=== PATIENT | male | born 1960 | race Caucasian/White ===

== ENCOUNTER 2018-03-05 06:37 | Emergency (ER) | payer SELFPAY ==
[~2018-03-05] VITALS: Ht 175.3 cm; Wt 98.0 kg
[~2018-03-05 06:37] MED LIST: ASPIRIN EC81 MG PO; COZAAR25 MG PO; COZAAR50 MG PO; GLIMEPIRIDE2 MG PO; GLIMEPIRIDE4 MG PO; LEVAQUIN500 MG PO; METFORMIN HCL500 MG PO; METOPROLOL TART25 MG PO
[2018-03-05] MEDS ORDERED: CLOPIDOGREL75 MG PO (07:08)
[2018-03-05] MEDS ORDERED: AMOX TR-K CLV1 EAC1 PO (07:09)
[2018-03-05] MEDS ORDERED: ATORVASTATIN CA40 MG PO (07:09)
[2018-03-05] MEDS ORDERED: AMARYL2 MG PO (07:12)
[2018-03-05] MEDS ORDERED: JANUMET XR 50-1 EACH PO (07:13)
[2018-03-05] MEDS ORDERED: ATIVAN0.5 MG PO (07:18)
[2018-03-05] MEDS ORDERED: HYDROCODON-ACE1 EAC8 PO (07:20)
[2018-03-05] MEDS ORDERED: NICOTINE PATCH1 EAC1 TD (07:21)
[2018-03-05] MEDS ORDERED: ANTI-DIARRHEA2 MG PO (07:22)
[2018-03-05] MEDS ORDERED: MULTI VITAMIN1 EACH PO (07:23)
[2018-03-05] MEDS ORDERED: PAIN RELIEF650 MG PO (07:24)
[2018-03-05] MEDS ORDERED: LAXATIVE SUPPOS10 MG PR (07:25)
[2018-03-05] MEDS ORDERED: MILK OF MA400 MG/5 M PO (07:26)
[2018-03-05] MEDS ORDERED: PEG3350510 GM PO (07:27)
== END 2018-03-05 09:05 | disposition home or self-care (01) ==
LOC: ED 06:37
DX: E11.649 Type 2 diabetes mellitus with hypoglycemia without coma (principal); Z79.84 Long term (current) use of oral hypoglycemic drugs; Z79.82 Long term (current) use of aspirin; Z79.899 Other long term (current) drug therapy
CPT/HCPCS: 80053; 85025; 99283

== ENCOUNTER 2018-04-10 00:25 | Emergency (ER) | payer OTHER ==
[~2018-04-10] VITALS: Ht 160 cm; Wt 99.8 kg
--- OUTSIDE RECORDS SUMMARY | ~2018-04-10 | XMS | Encounter Summary ---
Demographics + + + | Address | [address] | | | [place] [address] | + + + | Home Phone | | + + + | Preferred Language | Unknown | + + + | Marital Status | Single | + + + | Alevism Affiliation | Unknown | + + + | Race | Unknown | + + + | Ethnic Group | Unknown | + + + Author + + + | Author | [facility] | + + + | Organization | [facility] | + + + | Address | Unknown | + + + | Phone | Unavailable | + + + Support + + +---------+ + | Name | Relationship | Address | Phone | + + +---------+ + | Megan Walker | ECON | Unknown | | + + +---------+ + Care Team Providers + +------+ + | Care Tool And Die Maker Name | Role | Phone | + +------+ + | Nicholas Claire MD | PCP | | + +------+ + Encounter Details +--------+ + + + + | Date | Type | Department | Care Team | Description | +--------+ + + + + | 03/30/ | Telephone | [facility] | Yesenia Witt, | | | 2017 | | Vascular Surgery | RN | | | | | [address] | | | | | | [place] | | | | | | [address] | | | | | | [phone] | | | +--------+ + + + + Social History + +-------+ +--------+------+ | Tobacco Use | Types | Packs/Day | Years | Date | | | | | Used | | + +-------+ +--------+------+ | Never Smoker | | | | | + +-------+ +--------+------+ + +---+---+---+ | Smokeless Tobacco: | | | | | Former User | | | | + +---+---+---+ + + +---------+ + | Alcohol Use | Drinks/We | oz/Week | Comments | | | ek | | | + + +---------+ + | Yes | | | "no beer 3 weeks" | + + +---------+ + + + + | Sex Assigned at | Date Recorded | | | | + + + | Not on file | | + + + as of this encounter Plan of Treatment +--------+---------+ + + + | Date | Type | Specialty | Care Team | Description | +--------+---------+ + + + | 04/18/ | Office | Vascular Surgery | Chris Duggan DNP | | | 2017 | Visit | | [address] | | | | | | [place] | | | | | | [id number] | | | | | | | | +--------+---------+ + + + as of this encounter Visit Diagnoses Not on filein this encounter
--- OUTSIDE RECORDS SUMMARY | ~2018-04-10 | XMS | Encounter Summary ---
Demographics + + + | Address | [address] | | | [place] [address] | + + + | Home Phone | | + + + | Preferred Language | Unknown | + + + | Marital Status | Single | + + + | Roman Catholic Affiliation | Unknown | + + + | Race | Unknown | + + + | Ethnic Group | Unknown | + + + Author + + + | Author | [facility] | | | and [place] | + + + | Organization | [facility] | | | and [place] | + + + | Address | Unknown | + + + | Phone | Unavailable | + + + Support + + +---------+ + | Name | Relationship | Address | Phone | + + +---------+ + | Mara Alvarez | ECON | Unknown | | + + +---------+ + Care Team Providers + +------+ + | Care Operations Manager Assistant Name | Role | Phone | + +------+ + | Nicholas Claire MD | PCP | | + +------+ + Reason for Visit Auth/Cert +--------+--------+ + + + + | Status | Reason | Specialty | Diagnoses / | Referred By | Referred To | | | | | Procedures | Contact | Contact | +--------+--------+ + + + + | | | | Diagnoses | | | | | | | 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) | | | | | | | Infected | | | | | | | Toe | | | | | | | Procedures | | | | | | | TX RELEASE | | | | | | | EXTEN FOOT | | | | | | | TENDON,SINGL | | | | | | | E | | | | | | | AMPUTATION | | | | | | | TOE, 2nd | | | +--------+--------+ + + + + Encounter Details +--------+ + + + + | Date | Type | Department | Care Team | Description | +--------+ + + + + | 02/18/ | Hospital | [facility] | Kal Walker | | | 2017 | Encounter | [facility] | [address] | | | | | [address] [place] | [facility], | | | | | [place], [place] | [place] [address] | | | | | [address] | [phone] | | | | | [phone] | | | +--------+ + + + + Social History + +-------+ +--------+------+ | Tobacco Use | Types | Packs/Day | Years | Date | | | | | Used | | + +-------+ +--------+------+ | Current Every Day | | | 45 | | | Smoker | | | | | + +-------+ +--------+------+ + +------+---+---+ | Smokeless Tobacco: | Chew | | | | Current User | | | | + +------+---+---+ + + | Tobacco Cessation: Ready to Quit: Yes; Counseling Given: Yes | + + + + +---------+ + | Alcohol Use | Drinks/We | oz/Week | Comments | | | ek | | | + + +---------+ + | No | | | | + + +---------+ + + + + | Sex Assigned at | Date Recorded | | | | + + + | Not on file | | + + + as of this encounter Last Filed Vital Signs + + + + | Vital Sign | Reading | Time Taken | + + + + | Blood Pressure | 132/70 | 02/18/20182011 PDT | + + + + | Pulse | 93 | 02/18/20182011 PDT | + + + + | Temperature | 37.1 C (98.8 F) | 02/18/20182011 PDT | + + + + | Respiratory Rate | 16 | 02/18/20181999 PDT | + + + + | Oxygen Saturation | 98% | 02/18/20182011 PDT | + + + + | Inhaled Oxygen | - | - | | Concentration | | | + + + + | Weight | - | - | + + + + | Height | - | - | + + + + | Body Mass Index | - | - | + + + + in this encounter Medications at Time of Discharge + + +-------+---------+ + + | Medication | Sig. | Disp. | Refills | Start | End Date | | | | | | Date | | + + +-------+---------+ + + | albuterol | | | | 11/04/19 | | | (VENTOLIN HFA) 90 | | | | 18 | | | mcg/puff inhaler | | | | | | + + +-------+---------+ + + | aspirin 81 MG EC | Take 81 mg by mouth. | | | | | | tablet | | | | | | + + +-------+---------+ + + | clopidogrel | Take 75 mg by mouth. | | | 10/20/19 | | | (PLAVIX) 75 mg | | | | 18 | 9 | | tablet | | | | | | + + +-------+---------+ + + | glimepiride | | | | 01/08/20 | | | (AMARYL) 4 mg tablet | | | | 18 | | + + +-------+---------+ + + | losartan (COZAAR) | | | | 07/23/20 | | | 25 mg tablet | | | | 17 | | + + +-------+---------+ + + | metoprolol | | | | 07/23/20 | | | tartrate (LOPRESSOR) | | | | 17 | | | 25 mg tablet | | | | | | + + +-------+---------+ + + | | | | | 08/09/20 | | | sitagliptan-metFORMI | | | | 17 | | | N (SHIRLEY) 50-500 | | | | | | | MG per tablet | | | | | | + + +-------+---------+ + + as of this encounter Plan of Treatment + +--------+ + + | Name | Priori | Associated Diagnoses | Order Schedule | | | ty | | | + +--------+ + + | Surgical Pathology Exam | Routin | | One Time for 1 | | | e | | Occurrences starting | | | | | 02/18/2018 | + +--------+ + + | Surgical Pathology Exam | Routin | | One Time for 1 | | | e | | Occurrences starting | | | | | 02/18/2018 | + +--------+ + + as of this encounter Procedures + +--------+ + + + | Procedure Name | Priori | Date/Time | Associated Diagnosis | Comments | | | ty | | | | + +--------+ + + + | XR FOOT RIGHT 2 VW | STAT | 02/18/2018 | | Results for this | | | | 1948 PDT | | procedure are in the | | | | | | results section. | + +--------+ + + + | AMPUTATION TOE | | 02/18/2018 | Infected Toe | | | | | 1730 PDT | | | + +--------+ + + + | POC GLUCOSE | Routin | 02/18/2018 | | Results for this | | | e | 1628 PDT | | procedure are in the | | | | | | results section. | + +--------+ + + + | SURGICAL PATHOLOGY | Routin | 02/18/2018 | | Results for this | | EXAM | e | 0000 PDT | | procedure are in the | | | | | | results section. | + +--------+ + + + in this encounter Results XR Foot Right 2 Vw (02/18/20181947) + + + | Impressions | Performed At | + + + | IMPRESSION: Postsurgical change of 2nd digit amputation as above. | [facility] | | Dictated by: Kashmir Dong | | + + + + + + | Narrative | Performed At | + + + | EXAMINATION: XR FOOT RIGHT 2 VW HISTORY: post op | [facility] | | COMPARISON STUDY: None FINDINGS: Postoperative image | | | demonstrates amputation of the 2nd digit at the mid-diaphyseal level | | | of the 2nd proximal phalanx. The overlying soft tissue is | | | unremarkable. Vascular calcifications are present. | | + + + + + | Procedure Note | + + | Claudio Soni Results In - 02/19/2018 0714 PDT EXAMINATION:XR FOOT RIGHT 2 VWHISTORY:post | | opCOMPARISON STUDY:NoneFINDINGS:Postoperative image demonstrates amputation of the 2nd | | digit at the mid-diaphyseal level of the 2nd proximal phalanx. The overlying soft | | tissue is unremarkable. 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.Dictated by: Kashmir | | Glennyectronically Signed by: Kashmir Dong on 02/19/2018 7:11 AM | |COMPARISON STUDY: | |None | | | |FINDINGS: | |Postoperative image demonstrates amputation of the 2nd digit at the mid-diaphyseal level of the 2nd proximal phalanx. The overlying soft tissue is unremarkable. Vascular calcificati ons are present. | | | |IMPRESSION: | |IMPRESSION: | |Postsurgical change of 2nd digit amputation as above. | | | |Dictated by: Kashmir Dong | | | | | + + + +---------+ + + | Performing | Address | City/State/Zipcode | Phone Number | | Organization | | | | + +---------+ + + | [facility] | | | | + +---------+ + + POC Glucose (02/18/2018 1628) + +-------+ + + | Component | Value | Ref Range | Performed At | + +-------+ + + | Glucose, POC | 98 | 70 - 110 mg/dL | [facility] | | | [facility] | | | | | [facility]ORY | + +-------+ + + + + | Specimen | + + | Blood | + + + + + + + | Performing | Address | City/State/Zipcode | Phone Number | | Organization | | | | + + + + + | [facility] | [address] | [place] [address] | [phone] | | HOSP[facility] | | | | + + + + + Surgical Pathology Exam (02/18/2018) + + + | Narrative | Performed At | + + + | SPECIMEN(S): A RIGHT SECOND TOE SPECIMEN SOURCE: A. RIGHT | [facility] | | SECOND TOE CLINICAL HISTORY: Infected toe. FINAL PATHOLOGIC | [facility] | | DIAGNOSIS: Right foot, 2nd toe, amputation: - Distal portion of | | | toe with ulceration, deep inflammation and hemorrhage, and gangrenous | | | necrosis. - Focal, minimal acute osteomyelitis present underlying | | | area of ulceration. - Skin and soft tissue margins with focal | | | inflammation and ulceration. - Additional fragment of bone with | | | focal, minimal acute osteomyelitis. NRT:cml:C2NR MICROSCOPIC | | | EXAMINATION: Histologic sections of all submitted blocks are examined | | | by light microscopy. These findings, together with the gross | | | examination, support the pathologic diagnosis. GROSS DESCRIPTION: | | | Received in formalin in a container labeled "Arsenio Walker, right 2nd | | | toe" are two toe fragments, one consisting of apparent distal toe with | | | ulceration, measuring 2.5 cm in length x 1.7 cm in diameter. The | | | area of ulceration appears to possibly underlie the toenail, and | | | measures 2.5 x 1.5 cm. The skin and bone margins appear viable and | | | uninvolved. On sectioning of the toe through the area of | | | ulceration there is diffuse blackening of the tissue and apparent | | | involvement of the underlying bone. A full cross section of the toe | | | with ulceration and blackened tissue involving bone is submitted in | | | cassette (A1), following decalcification. The skin and soft tissue | | | at the margin of the toe is submitted in cassette (A2), following | | | decalcification. There is an additional bone fragment present in | | | the specimen container measuring 1.5 cm in length x 1 cm in | | | diameter. It is sectioned revealing unremarkable cut surfaces, and | | | its cross sections are entirely submitted in cassette (A3), following | | | decalcification. NRT:cml PERFORMING LABORATORY: The technical | | | [facility] | | | [place], [address] [place] [address] (Medical | | | Director: Nicholas Escalante MD; CLIA# [id number]). Professional | | | interpretation [facility] | | | [place], [address] [facility], [place] [address] (Medical | | | Director: Nicholas Escalante MD; CLIA# [id number]). | | | Diagnostician: Aaliyah Romero MD Pathologist Electronically | | | Signed 02/24/2018 | | + + + + +---------+ + + | Performing | Address | City/State/Zipcode | Phone Number | | Organization | | | | + +---------+ + + | [facility] | | | | | [place] | | | | + +---------+ + + in this encounter Visit Diagnoses Not on filein this encounter Admitting Diagnoses + + | Diagnosis | + + | Infected Toe | + + Administered Medications + +--------+---------+------+------+------+ | Medication Order | MAR | Action | Dose | Rate | Site | | | Action | Date | | | | + +--------+---------+------+------+------+ + +---+ | fentaNYL (PF) injection 25-50 | | | mcg 25-50 mcg, Intravenous, | | | EVERY 5 MIN PRN, Pain, Starting | | | Wed02/18/18 at 1939, Maximum | | | total dose 250 mcg. PACU IV | | | Narcotic Priority: Only use | | | fentanyl for immediate post-op | | | pain (one dose) or breakthrough | | | pain when any other IV narcotics | | | ordered have been ineffective (if | | | ordered). If both morphine and | | | hydromorphone are ordered, use | | | morphine first, and use | | | hydromorphone if morphine | | | ineffective. | | + +---+ | | | + +---+ | HYDROmorphone (DILAUDID) | | | injection 0.2-0.5 mg 0.2-0.5 mg, | | | Intravenous, EVERY 5 MIN PRN, | | | Pain, Starting Wed02/18/18 at | | | 1939, Maximum total dose 4 mg. | | | PACU IV Narcotic Priority: Only | | | use fentanyl for immediate | | | post-op pain (one dose) or | | | breakthrough pain when any other | | | IV narcotics ordered have been | | | ineffective (if ordered). If | | | both morphine and hydromorphone | | | are ordered, use morphine first, | | | and use hydromorphone if morphine | | | ineffective. | | + +---+ | | | + +---+ + +---------+ +---+-------+---+ | lactated ringers (LR) infusion | New Bag | | | 100 | | | at 100 mL/hr, Intravenous, | | 8 16:20 | | mL/hr | | | CONTINUOUS, Starting Wed02/18/18 | | PDT | | | | | at 1645, Pre-op | | | | | | + +---------+ +---+-------+---+ +---------+ +---+---+---+ | New Bag | | | | | | | 8 16:20 | | | | | | PDT | | | | +---------+ +---+---+---+ + +---+ | | | + +---+ | ondansetron (ZOFRAN) injection | | | 4 mg 4 mg, Intravenous, ONCE | | | PRN, Nausea, Starting Wed02/18/18 | | | at 1939, For 1 dose, | | | Recovery/Phase I | | + +---+ | | | + +---+ in this encounter
--- OUTSIDE RECORDS SUMMARY | ~2018-04-10 | XMS | Encounter Summary ---
Demographics + + + | Address | [address] | | | [place] [address] | + + + | Home Phone | | + + + | Preferred Language | Unknown | + + + | Marital Status | Single | + + + | Jewish Affiliation | Unknown | + + + | Race | Unknown | + + + | Ethnic Group | Unknown | + + + Author + + + | Author | [facility] | + + + | Organization | [facility] | + + + | Address | Unknown | + + + | Phone | Unavailable | + + + Support + + +---------+ + | Name | Relationship | Address | Phone | + + +---------+ + | Megan Walker | ECON | Unknown | | + + +---------+ + Care Team Providers + +------+ + | Care Commercial Plumber Name | Role | Phone | + +------+ + | Nicholas Claire MD | PCP | | + +------+ + Encounter Details +--------+ + + + + | Date | Type | Department | Care Team | Description | +--------+ + + + + | 03/11/ | Orders Only | Located Within [facility] | Ronnell Burroughs, | | | 2018 | | [facility] Roxie Cantrell RN | | | | | Lab [address] [place] [address] | | | | | | [place] [address] | | | | | | [phone] | | | +--------+ + + + [...] [place] | | | | | | [address] | | | | | | | | +--------+---------+ + + + as of this encounter Visit Diagnoses Not on filein this encounter
--- OUTSIDE RECORDS SUMMARY | ~2018-04-10 | XMS | Encounter Summary ---
Demographics + + + | Address | [address] | | | [place] [address] | + + + | Home Phone | | + + + | Preferred Language | Unknown | + + + | Marital Status | Single | + + + | Restoration Affiliation | Unknown | + + + | Race | Unknown | + + + | Ethnic Group | Unknown | + + + Author + + + | Author | [facility] | + + + | Organization | [facility] | + + + | Address | Unknown | + + + | Phone | Unavailable | + + + Support + + +---------+ + | Name | Relationship | Address | Phone | + + +---------+ + | Megan Walker | ECON | Unknown | | + + +---------+ + Care Team Providers + +------+ + | Care Chauffeur Motorbus Name | Role | Phone | + +------+ + | Nicholas Claire MD | PCP | | + +------+ + Encounter Details +--------+ + + + + | Date | Type | Department | Care Team | Description | +--------+ + + + + | 03/16/ | Orders Only | [facility] | Yesenia Witt, | Occlusion of right | | 2017 | | Vascular Surgery | RN | femoral-popliteal | | | | [address] | | bypass graft, | | | | [place] | | initial encounter | | | | [address] | | ([facility]) (Primary Dx) | | | | [phone] | | | +--------+ + + + [...] [place] | | | | | | [address] | | | | | | | | +--------+---------+ + + + + +--------+ + + | Name | Priori | Associated Diagnoses | Order Schedule | | | ty | | | + +--------+ + + | US lower extremty arterial right | Routin | Occlusion of right | Expected: | | | e | femoral-popliteal | 03/31/2018, Expires: | | | | bypass graft, | 12/15/2018 | | | | initial encounter | | | | | ([facility]) | | + +--------+ + + as of this encounter Visit Diagnoses + + | Diagnosis | + + | Occlusion of right femoral-popliteal bypass graft, initial encounter ([facility]) - Primary | + +
--- OUTSIDE RECORDS SUMMARY | ~2018-04-10 | XMS | Encounter Summary ---
Demographics + + + | Address | [address] | | | [place] [address] | + + + | Home Phone | | + + + | Preferred Language | Unknown | + + + | Marital Status | Single | + + + | Denominational Affiliation | Unknown | + + + | Race | Unknown | + + + | Ethnic Group | Unknown | + + + Author + + + | Author | [facility] | + + + | Organization | [facility] | + + + | Address | Unknown | + + + | Phone | Unavailable | + + + Support + + +---------+ + | Name | Relationship | Address | Phone | + + +---------+ + | Megan Walker | ECON | Unknown | | + + +---------+ + Care Team Providers + +------+ + | Care Field Traffic Investigator Name | Role | Phone | + [...] | | | | | | | Cellulitis | | | | | | | of right | | | | | | | lower | | | | | | | extremity | | | | | | | Sepsis, due | | | | | | | to | | | | | | | unspecified | | | | | | | organism | | | | | | | ([facility]) | | | | | | | Gangrene of | | | | | | | right foot | | | | | | | ([facility]) | | | +--------+--------+ + + + + Encounter Details +--------+ + + + + | Date | Type | Department | Care Team | Description | +--------+ + + + + | 02/25/ | Anesthesia | [facility] | Pete Allen, | | | 2018 | [facility] | [facility] [address] | | | | | Operating Room [address] | [place] [address] | | | | | [facility] | [phone] | | | | | [place] [address] | | | | | | [phone] | | | +--------+ + + + + Anesthesia Record + + + + + | Procedure Name | Responsible | Anesthesia Start | Anesthesia Stop Time | | | Anesthesiologist | Time | | + + + + + | FOREFOOT - | Jean-Paul Portillo | 02/25/18 1849 | 02/25/18 2020 | | AMPUTATION (Right | JACOB Ball | | | | Foot) | | | | + + + + + +----+---+ + + | Da | T | Event | Comment | | te | i | | | | | m | | | | | e | | | +----+---+ + + | 06 | 1 | An Start | Pre-anesthetic vital signs reassessed. | | /2 | 8 | | | | 9/ | 4 | | | | 20 | 9 | | | | 18 | | | | +----+---+ + + | | 1 | An | | | | 8 | Induction | | | | 5 | | | | | 6 | | | +----+---+ + + | | 1 | An | | | | 9 | Intubation | | | | 0 | | | | | 0 | | | +----+---+ + + | | 1 | Quick Note | | | | 9 | | | | | 0 | | | | | 1 | | | +----+---+ + + | | 1 | No Abx | | | | 9 | | | | | 0 | | | | | 4 | | | +----+---+ + + | | 1 | Quick Note | Time out no abx indicated | | | 9 | | | | | 0 | | | | | 6 | | | +----+---+ + + | | 1 | Quick Note | incision | | | 9 | | | | | 0 | | | | | 8 | | | +----+---+ + + | | 2 | An | | | | 0 | Emergence | | | | 1 | | | | | 0 | | | +----+---+ + + | | 2 | Extubation | | | | 0 | | | | | 1 | | | | | 4 | | | +----+---+ + + | | 2 | an stop | | | | 0 | data | | | | 1 | | | | | 5 | | | +----+---+ + + | | 2 | An Stop | | | | 0 | | | | | 2 | | | | | 0 | | | +----+---+ + + +------+ | Meds | +------+ + +---------+ | Name | Total | + +---------+ | midazolam 1 mg/mL | 2 mg | + +---------+ | fentanyl 50 mcg/mL | 100 mcg | + +---------+ | lidocaine 2% | 40 mg | + +---------+ | propofol bolus | 100 mg | + +---------+ | succinylcholine 10 mg/mL | 100 mg | + +---------+ | ROCuronium 10 mg/mL | 5 mg | + +---------+ | dexamethasone 4 mg/mL | 4 mg | + +---------+ | ondansetron 2 mg/mL | 4 mg | + +---------+ | plasmalyte-A | 0 mL | + +---------+ + + | Name | + + | N2O | + + | O2 | + + | Air | + + | Desflurane-EX | + + | N2O | + + + + | No blood administrations on file. | + + +--------+ + + + | Type | Details | Placement | Removal | +--------+ + + + | Wound | 02/22/18; 1318; Yes; Amputation; | 02/22/18 1318 by | 03/31/18 1238 by | | | Foot; Yes; 03/31/18; 1238 | Hannah Boland RN | Lesley Byrne, | | | | | RN | +--------+ + + + | Urethr | 02/23/18; (no one available); | 02/23/18 0000 by | 02/26/18 1205 by | | al | Yes; Latex; 16 Fr.; Per order | Jayne Crawford RN | Sherie García, | | Roxieet | | | RN | | er | | | | +--------+ + + + | Periph | Placement Date: 02/23/18; | 02/23/181753 by | 02/26/18 044 by | | eral | Placement Time: 1753; Removal | Nahid Anand MD | Darlene Osborn, | | IV | Date: 02/26/18; Removal Time: | | RN | | | 443; Size (Gauge): 16 G; | | | | | Orientation: Right; Location: | | | | | Hand; Site Prep: Alcohol; | | | | | Insertion Attempts: 1 | | | +--------+ + + + | Wound | 02/23/18; 2224; Incision; Leg; | 02/23/182224 by | 03/31/18 1236 by | | | Right; 03/31/18; 1236 | Jayne Crawford RN | Lesley Byrne, | | | | | RN | +--------+ + + + | Periph | Placement Date: 02/25/18; | 02/25/18 1400 by | 03/11/18 1213 by | | eral | Placement Time: 1400; Removal | Darlene Osborn, | Eric Dennisonrhout, | | IV | Date: 03/11/18; Removal Time: | RN | RN | | | 1213; Orientation: Right; | | | | | Location: Forearm | | | +--------+ + + + | ETT | Placement Date: 02/25/18; | 02/25/18 1900 by | 02/25/182013 by | | | Placement Time: 1900; Removal | Jean-Paul Portillo | Jean-Paul Portillo | | | Date: 02/25/18; Removal Time: | JACOB Ball | JACOB Ball | | | 2013; Mask Airway: Easy; Blade | | | | | Type: MAC; Blade Size: 3; ETT | | | | | Size (Fr): 7.5; Technique: Direct | | | | | Laryngoscope; Grade: I; | | | | | Confirmation: EtCO2, Direct | | | | | visualization; Intubation | | | | | Details: Easy, Atraumatic; Taped | | | | | at (cm): 22; Secured at: Teeth | | | +--------+ + + + | Wound | 02/25/18; 2006; Incision; Foot; | 02/25/18 2006 by | 03/31/18 1236 by | | | Right; 03/31/18; 1236 | Jean-Paul Darby RN | Lesley Byrne, | | | | | RN | +--------+ + + + in this encounter Social History + +-------+ +--------+------+ | Tobacco Use | Types | Packs/Day | Years | Date | | | | | Used | | + +-------+ +--------+------+ | Never Smoker | | | | | + +-------+ +--------+------+ + +---+---+---+ | Smokeless Tobacco: | | | | | Current User | | | | + +---+---+---+ [...] | Chris Duggan DNP | | | 2018 | Visit | | [address] | | | | | | [place] | | | | | | [address] | | | | | | | | +--------+---------+ + + + as of this encounter Visit Diagnoses Not on filein this encounter Administered Medications + +--------+ +------+------+------+ | Medication Order | MAR | Action | Dose | Rate | Site | | | Action | Date | | | | + +--------+ +------+------+------+ | dexamethasone (DECADRON) 4 | Given | | 4 mg | | | | MG/ML injection PRN, Starting | | 8 19:09 | | | | | 02/25/18 at 1909, Anesthesia | | PDT | | | | | Intra-op | | | | | | + +--------+ +------+------+------+ +---+---+ | | | +---+---+ + +---------+ +---+---+---+ | electrolyte-A (PLASMALYTE-A) | New Bag | | | | | | solution Intravenous, Continuous | | 8 18:44 | | | | | PRN, Starting Wed02/25/18 at | | PDT | | | | | 1844, Anesthesia Intra-op | | | | | | + +---------+ +---+---+---+ +---+---+ | | | +---+---+ + +-------+ +--------+---+---+ | fentaNYL (SUBLIMAZE) injection | Given | | 50 mcg | | | | Intravenous, PRN, Starting Wed | | 8 18:47 | | | | | 02/25/18 at 1847, Anesthesia | | PDT | | | | | Intra-op | | | | | | + +-------+ +--------+---+---+ +-------+ +--------+---+---+ | Given | | 50 mcg | | | | | 8 18:56 | | | | | | PDT | | | | +-------+ +--------+---+---+ +---+---+ | | | +---+---+ + +-------+ +-------+---+---+ | lidocaine 2 % (MDV) 2 % | Given | | 40 mg | | | | injection Intravenous, PRN, | | 8 18:56 | | | | | Starting Wed02/25/18 at 1856, | | PDT | | | | | Anesthesia Intra-op | | | | | | + +-------+ +-------+---+---+ +---+---+ | | | +---+---+ + +-------+ +------+---+---+ | midazolam (VERSED) injection | Given | | 2 mg | | | | PRN, Starting Wed02/25/18 at | | 8 18:47 | | | | | 1847, Anesthesia Intra-op | | PDT | | | | + +-------+ +------+---+---+ +---+---+ | | | +---+---+ + +-------+ +------+---+---+ | ondansetron (ZOFRAN) injection | Given | | 4 mg | | | | PRN, Nausea, Vomiting, Starting | | 8 19:35 | | | | | 02/25/18 at 1935, Anesthesia | | PDT | | | | | Intra-op | | | | | | + +-------+ +------+---+---+ +---+---+ | | | +---+---+ + +-------+ +--------+---+---+ | propofol (DIPRIVAN) injection | Given | | 100 mg | | | | Intravenous, PRN, Starting Fri | | 8 18:56 | | | | | 02/25/18 at 1856, Anesthesia | | PDT | | | | | Intra-op | | | | | | + +-------+ +--------+---+---+ +---+---+ | | | +---+---+ + +-------+ +------+---+---+ | rocuronium (ZEMURON) injection | Given | | 5 mg | | | | PRN, Starting Wed02/25/18 at | | 8 18:56 | | | | | 1856, Anesthesia Intra-op | | PDT | | | | + +-------+ +------+---+---+ +---+---+ | | | +---+---+ + +-------+ +--------+---+---+ | succinylcholine injection PRN, | Given | | 100 mg | | | | Starting Wed02/25/18 at 1857, | | 8 18:57 | | | | | Anesthesia Intra-op | | PDT | | | | + +-------+ +--------+---+---+ +---+---+ | | | +---+---+ in this encounter"
--- OUTSIDE RECORDS SUMMARY | ~2018-04-10 | XMS | Encounter Summary ---
Demographics + + + | Address | [address] | | | [place] [address] | + + + | Home Phone | | + + + | Preferred Language | Unknown | + + + | Marital Status | Single | + + + | Jehovah'S Witness Affiliation | Unknown | + + + | Race | Unknown | + + + | Ethnic Group | Unknown | + + + Author + + + | Author | [facility] | + + + | Organization | [facility] | + + + | Address | Unknown | + + + | Phone | Unavailable | + + + Support + + +---------+ + | Name | Relationship | Address | Phone | + + +---------+ + | Megan Walker | ECON | Unknown | | + + +---------+ + Care Team Providers + +------+ + | Care Investigations Chief Name | Role | Phone | + +------+ + | Nicholas Claire MD | PCP | | + +------+ + Encounter Details +--------+ + + + + | Date | Type | Department | Care Team | Description | +--------+ + + + + | 02/22/ | Procedure | [facility] | | | | 2017 | [facility] | [address] | | | | | | Floor [facility] | | | | | | [address] [facility] | | | | | | [place] [address] | | | | | | [phone] | | | +--------+ + + + [...] [place] | | | | | | [address] | | | | | | | | +--------+---------+ + + + as of this encounter Visit Diagnoses Not on filein this encounter"
--- OUTSIDE RECORDS SUMMARY | ~2018-04-10 | XMS | Encounter Summary ---
Demographics + + + | Address | [address] | | | [place] [address] | + + + | Home Phone | | + + + | Preferred Language | Unknown | + + + | Marital Status | Single | + + + | Hindu Affiliation | Unknown | + + + | Race | Unknown | + + + | Ethnic Group | Unknown | + + + Author + + + | Author | [facility] | + + + | Organization | [facility] | + + + | Address | Unknown | + + + | Phone | Unavailable | + + + Support + + +---------+ + | Name | Relationship | Address | Phone | + + +---------+ + | Megan Walker | ECON | Unknown | | + + +---------+ + Care Team Providers + +------+ + | Care Quality Assurance Monitor Body Name | Role | Phone | + +------+ + | Nicholas Claire MD | PCP | | + +------+ + Encounter Details +--------+ + + + + | Date | Type | Department | Care Team | Description | +--------+ + + + + | 02/22/ | Procedure | [facility] | | | | 2017 | [facility] | [address] | | | | | | Floor [facility] | | | | | | [address] | | | | | | [place] [address] | | | | | | [phone] | | | +--------+ + + + [...] [place] | | | | | | [address] | | | | | | | | +--------+---------+ + + + as of this encounter Visit Diagnoses Not on filein this encounter"
--- OUTSIDE RECORDS SUMMARY | ~2018-04-10 | XMS | Encounter Summary ---
Demographics + + + | Address | [address] | | | [place] [address] | + + + | Home Phone | | + + + | Preferred Language | Unknown | + + + | Marital Status | Single | + + + | Baptism Affiliation | Unknown | + + + | Race | Unknown | + + + | Ethnic Group | Unknown | + + + Author + + + | Author | [facility] | | | and [place] | + + + | Organization | [facility] | | | and [...] Team Providers + +------+ + | Care Steam Hammer Operator Name | Role | Phone | + +------+ + | Nicholas Claire MD | PCP | | + +------+ + Encounter Details +--------+ + + + + | Date | Type | Department | Care Team | Description | +--------+ + + + + | 02/18/ | Procedure | [facility] | | | | 2017 | Pass [facility] | | | | | | [address] | | | | | | [place] | | | | | | [address] | | | | | | [phone] | | | +--------+ + + + [...] | | | + +------+---+---+ + + +---------+ + | Alcohol Use [...] as of this encounter Plan of Treatment Not on fileas of this encounter Visit Diagnoses Not on filein this encounter"
--- OUTSIDE RECORDS SUMMARY | ~2018-04-10 | XMS | Encounter Summary ---
Demographics + + + | Address | [address] | | | [place] [address] | + + + | Home Phone | | + + + | Preferred Language | Unknown | + + + | Marital Status | Single | + + + | Amish Affiliation | Unknown | + + + | Race | Unknown | + + + | Ethnic Group | Unknown | + + + Author + + + | Author | [facility] | + + + | Organization | [facility] | + + + | Address | Unknown | + + + | Phone | Unavailable | + + + Support + + +---------+ + | Name | Relationship | Address | Phone | + + +---------+ + | Megan Walker | ECON | Unknown | | + + +---------+ + Care Team Providers + +------+ + | Care Narcotics Investigator Name | Role | Phone | + +------+ + | Nicholas Claire MD | PCP | | + +------+ + Reason for Visit + + + | Reason | Comments | + + + | Referral | | + + + | Post-op Problem | s/p Right second toe amputation Wednesday, other digits on foot | | | "look worse" | + + + Auth/Cert +--------+--------+ + + + + | [...] | | | | | | | (HCC) | | | | | | | Gangrene of | | | | | | | right foot | | | | | | | (HCC) | | | +--------+--------+ + + + + Encounter Details +--------+---------+ + + + | Date | Type | Department | Care Team | Description | +--------+---------+ + + + | 02/23/ | Surgery | [facility] | Johan Mueller MD | BYPASS GRAFT - | | 2018 | | [facility] | [address] [place] | FEMORAL - TIBIAL | | | | Operating Room [address] | [place], [place] | | | | | [address] | [address] | | | | | [place] [address] | | | | | | [phone] | | | +--------+---------+ + + + Social History + +-------+ +--------+------+ | Tobacco Use | Types | Packs/Day | Years | Date | | | | | Used | | + +-------+ +--------+------+ | Never Smoker | | | | | + +-------+ +--------+------+ + +---+---+---+ | Smokeless Tobacco: | | | | | Current User | | | | + +---+---+---+ + + | Tobacco Cessation: Ready to Quit: No; Counseling Given: Yes | + + + [...] + + + | Blood Pressure | 183/97 | 03/01/2018 11:30 AM PDT | + + + + | Pulse | 93 | 03/01/2018 11:30 AM PDT | + + + + | Temperature | 36.7 C (98 F) | 03/01/2018 11:21 AM PDT | + + + + | Respiratory Rate | 18 | 03/01/2018 11:21 AM PDT | + + + + | Oxygen Saturation | 100% | 03/01/2018 11:21 AM PDT | + + + + | Inhaled Oxygen | - | - | | Concentration | | | + + + + | Weight | 107.5 kg (236 lb | 02/28/2018 3:53 AM PDT | | | 15.9 oz) | | + + + + | Height | 160 cm (5' 3") | 02/22/2018 9:56 AM PDT | + + + + | Body Mass Index | 41.98 | 02/28/2018 3:53 AM PDT | + + + + in this encounter Discharge Summaries Jojo Dudley MD - 02/28/2018 5:22 AM PDTFormatting of this note may be different from the original. [facility] Service: Hospitalist Physician Discharge Summary Patient ID: Arsenio Walker 1960 57 y.o. Admit date: 02/21/2018 Discharge date: 03/01/18 Admitting Physician: Peter Peña MD Discharge Physician: Jojo Dudley MD Consultants: Treatment Team: Consulting Physician: Johan Mueller MD Consulting Physician: Amilcar Garcia DPM Consulting Physician: Juany Padilla MD Consulting Physician: Ketan Varner DPM Admitting Provider: Peter Peña MD Primary Discharge Diagnoses: Principal Problem: Critical lower limb ischemia Active Problems: Foot ulcer with necrosis of bone, right (HCC) PVD (peripheral vascular disease) (HCC) Essential hypertension DM (diabetes mellitus) (HCC) HPI and Hospital Course: From HPI Dr. Peña 02/21/18 The patient is a 57-year-old male with a significant past medical history of hypertension, diabetes, peripheral vascular disease, carotid vascular disease, who presents to the ED stat us post right second toe amputation with worsening symptoms. The patient with known history of peripheral arterial disease and positive foot ulcer, for which he has been seen by our vascular surgery here at [facility] and by podiatry. Two days ago, there were concerns of an infected ulcer on the second toe, right foot, in the distal phalanx, for which he underwent surgical intervention and subsequent am putation on 02/19, two days ago. The patient refers that there were no surgical complicati ons, and when he went today for a followup with his professional bondsman, when they took off the browning ges there was clear discoloration of black toes, the foot was cold, and even though the bipin ent refers pain and numbness, he thought it was related to the recent surgical intervention. Due to these worrisome changes, the patient was subsequently brought to the ED for furthe r management. The patient does refer having been compliant with his medications, but he is unsure if he is taking the Plavix. He denies any history of smoking tobacco but does refe r to chewing on a daily basis. In the emergency department, the patient has remained hemodynamically stable. Vascular ruiz rgery was consulted immediately, who are planning to do a diagnostic angiogram with possible intravascular interventions. At this point the patient will be admitted under the hospitalist service for further manage ment. 02/28/18 For Discharge Patient admitted for R foot gangrene and PVD disease with evidence of necrosis on the dista l toes. Patient underwent R. Popliteal to RECORDS ANALYSIS MANAGER bypass and reversed OSV by Dr. Mueller, vascular surgery. Then underwent transmetatarsal amputation o 02/25/18 He was initiated on IV Zosyn and Vancomycin and was transitioned to Augmentin prior and thr ough discharge. Patient has severe anxiety and was given Benzos for relief. For other co-morbidities, his home medications were restarted. He was advised to quit tobacco use. All questions were answered for patient and his mother who agreed to plan. Discharged in g ood and stable condition. Past Medical History: Past Medical History Diagnosis Date Hypertension Type 2 diabetes mellitus (HCC) Past Surgical History Procedure Laterality Date FEMORAL TIBIAL BYPASS Right 02/23/2018 Procedure: BYPASS GRAFT - FEMORAL - TIBIAL; Surgeon: Johan Mueller MD; Location: [facility]; Service: Vascular; Laterality: Right; right popliteal to posterior tibial artery by pass with vein harvest FOOT AMPUTATION Right 02/25/2018 Procedure: FOREFOOT - AMPUTATION; Surgeon: Amilcar Garcia DPM; Location: [facility] OR; ervice: Podiatry; Laterality: Right; Right foot transmetatarsal amputation TOE AMPUTATION Right 02/18/2018 VASCULAR SURGERY Discharged Condition: Stable for discharge as stated above. Significant Diagnostic Studies: Us Arminda Resting Result Date: 02/22/2018 1. Ankle brachial indices on the right are compatible with moderate stenosis of the right p osterior tibial vessel which could contribute to symptoms 2. Ankle brachial indices on the l eft no evidence of high-grade disease along the main channel but there is some suppression o f toe pressures, mild Us Lower Extremty Arterial Right Result Date: 02/22/2018 1. The proximal RECORDS ANALYSIS MANAGER appears occluded with distal reconstitution via collaterals. 2. Mid p eroneal artery appears occluded with distal reconstitution via collaterals. 3. Probable hem odynamically significant stenosis in proximal JOSE ANGEL. 4. 3 vessel monophasic hyperemic distal runoff with monophasic hyperemic flow in dorsalis pedis artery. Us Greater Saphenous Vein Map Bilat Result Date: 02/22/2018 1. Bilateral greater saphenous vein mapping as described above. Us Tcom/ Laser Doppler Limited Result Date: 02/24/2018 1. Skin perfusion pressures as noted in the findings. Reference ranges: * In nondiabetic patients oxygen tension values below 40 mmHg are considered ischemic. Oxygen tension values above 20 mm Hg are required for adequate healing. * In diabetic patients oxygen tension va lues below 50 mmHg are considered ischemic. Oxygen tension values above 25 mm Hg are requir ed for adequate healing. Discharge Vitals: Vitals: 02/28/18 0353 02/28/18 0848 02/28/18 1201 02/28/18 1218 BP: (!) 171/95 187/87 164/88 BP Location: Right forearm Right forearm Right forearm Pulse: 102 101 103 Resp: 20 Temp: 97.7 F (36.5 C) 98.4 F (36.9 C) 98.1 F (36.7 C) TempSrc: Oral Oral Oral SpO2: 91% 95% 96% Weight: 107.5 kg (236 lb 15.9 oz) Height: Discharge Exam: General: Well nourished. Psych: Alert and oriented x 3. Calm, cooperative. Cardiovascular: Regular rate and rhythm, no murmurs, no thrills. Normal PMI. Respiratory: Clear to auscultation, no wheezing or crackles, breathing non labored. Gastrointestinal: Soft, non-tender, non-distended, positive bowel sounds. No HSM. Musculoskeletal: No edema in bilateral lower extremities. No joint swelling. Skin: Warm and dry, no rashes. Neck: No JVD, Trachea midline. Neurological: Non focal. Motor grossly intact. LABS: Recent Labs Lab 02/28/18 0511 02/27/18 0453 02/26/18 0454 WBC 7.54 9.41 11.23* RBC 3.66* 3.53* 3.84* HGB 11.2* 11.0* 12.0* HCT 32.3* 31.4* 34.4* MCV 88.3 89.1 89.6 MCH 30.5 31.2 31.1 MCHC 34.6 35.1 34.7 RDW 40.7 40.7 41.1 PLT 321 288 269 MPV 7.6 7.6 7.8 DIFFTYPE AUTOMATED AUTOMATED MANUAL Recent Labs Lab 02/28/18 0511 02/27/18 0453 02/26/18 0454 02/22/18 0330 02/21/18 2100 NA 142 144 141 < > 137 134* K 4.1 4.0 4.2 < > 4.1 4.1 CL 107 109 106 < > 102 97* CO2 28 26 23 < > 25 28 BUN 12 14 16 < > 15 14 CREATININE 0.8 0.8 0.9 < > 1.0 1.1 PROT -- -- -- -- 6.8 7.9 BILITOT -- -- -- -- 1.6* 2.0* ALT -- -- -- -- 25 28 AST -- -- -- -- 21 30 GLUF 199* 179* 218* < > 85 79 < > = values in this interval not displayed. Recent Labs Lab 02/21/18 2100 CKTOTAL 32* CKMBINDEX UNABLE TO CALCULATE No results for input(s): PHOS in the last 168 hours. Recent Labs Lab 02/22/18 0330 MG 1.9 Invalid input(s): ABG Disposition: Home or Self Care Follow up: Johan Mueller MD [address] [facility] [phone] Schedule an appointment as soon as possible for a visit in 2 weeks For wound re-check Nicholas Claire MD [address] [facility] [phone] In 3 days Medication List START taking these medications acetaminophen 325 MG tablet QTY: 30 tablet Refills: 0 Commonly known as: TYLENOL Take 2 tablets by mouth every 6 (six) hours as needed for up to 10 days. amoxicillin-clavulanate 875-125 MG per tablet QTY: 14 tablet Refills: 0 Commonly known as: AUGMENTIN Take 1 tablet by mouth every 12 (twelve) hours for 7 days. atorvastatin 40 MG tablet QTY: 30 tablet Refills: 11 Commonly known as: LIPITOR Take 1 tablet by mouth nightly. bisacodyl 10 MG suppository QTY: 1 suppository Refills: 0 Commonly known as: DULCOLAX Place 1 suppository rectally daily as needed for up to 10 days. HYDROcodone-acetaminophen 10-325 MG per tablet QTY: 30 tablet Refills: 0 Commonly known as: NORCO Take 1 tablet by mouth every 4 (four) hours as needed. Replaces: HYDROcodone-acetaminophen 5-325 MG per tablet LORazepam 0.5 MG tablet QTY: 30 tablet Refills: 0 Commonly known as: ATIVAN Take 1 tablet by mouth every 4 (four) hours as needed for Anxiety. magnesium hydroxide 400 MG/5ML suspension QTY: 360 mL Refills: 0 Commonly known as: MILK OF MAGNESIA Take 30 mLs by mouth daily as needed for Constipation for up to 10 days. nicotine 21 MG/24HR QTY: 28 patch Refills: 0 Commonly known as: NICODERM CQ Place 1 patch onto the skin daily for 30 days. polyethylene glycol packet QTY: 14 each Refills: 0 Commonly known as: GLYCOLAX Take 17 g by mouth daily as needed for up to 3 days. CONTINUE taking these medications aspirin 81 MG chewable tablet Refills: 0 clopidogrel 75 MG tablet QTY: 90 tablet Refills: 0 Commonly known as: PLAVIX Take 1 tablet by mouth daily. glimepiride 4 MG tablet Refills: 0 Commonly known as: AMARYL JANUMET XR 50-500 MG Tb24 Refills: 0 Generic drug: SitaGLIPtin-MetFORMIN HCl losartan 25 MG tablet Refills: 0 Commonly known as: COZAAR metFORMIN 500 MG tablet Refills: 0 Commonly known as: GLUCOPHAGE metoprolol 25 MG tablet QTY: 30 tablet Refills: 11 Commonly known as: LOPRESSOR Take 0.5 tablets by mouth 2 (two) times daily. You might also be taking other medications not listed above. If you have questions about an y of your other medications, talk to the person who prescribed them or your Primary Care Pro vider. STOP taking these medications HYDROcodone-acetaminophen 5-325 MG per tablet Commonly known as: NORCO Replaced by: HYDROcodone-acetaminophen 10-325 MG per tablet Where to Get Your Medications These medications were sent to [facility] [address] [place] [id number] [place] [id number] [place] [address] [place] [address] acetaminophen 325 MG tablet amoxicillin-clavulanate 875-125 MG per tablet atorvastatin 40 MG tablet bisacodyl 10 MG suppository magnesium hydroxide 400 MG/5ML suspension metoprolol 25 MG tablet nicotine 21 MG/24HR polyethylene glycol packet You can get these medications from any pharmacy Bring a paper prescription for each of these medications HYDROcodone-acetaminophen 10-325 MG per tablet LORazepam 0.5 MG tablet Jojo Dudley MD 02/28/2018 2:11 PM Discharge took>30 minutes, to include final examination, discussion of admission, and pre paration of prescriptions, instructions for ongoing care, follow up and dictation of summary . in this encounter Medications at Time of Discharge + + + +---------+ + + | Medication | Sig. | Disp. | Refills | Start | End Date | | | | | | Date | | + + + +---------+ + + | atorvastatin | Take 1 tablet by | 30 | 11 | 02/29/20 | | | (LIPITOR) 40 MG | mouth nightly. | tablet | | 18 | 9 | | tablet | | | | | | + + + +---------+ + + | JANUMET XR 50-500 | Take 1 tablet by | | | 08/27/20 | | | MG TB24 | mouth every morning. | | | 17 | | + + + +---------+ + + | losartan (COZAAR) | Take 25 mg by mouth | | | 07/23/20 | | | 25 MG tablet | daily. | | | 17 | | + + + +---------+ + + | metoprolol | Take 0.5 tablets by | 30 | 11 | 02/29/20 | | | (LOPRESSOR) 25 MG | mouth 2 (two) times | tablet | | 18 | 9 | | tablet | daily. | | | | | + + + +---------+ + + | | Take 1 tablet by | 14 | 0 | 02/29/20 | | | amoxicillin-clavulan | mouth every 12 | tablet | | 18 | 8 | | ate (AUGMENTIN) | (twelve) hours for 7 | | | | | | 875-125 MG per | days. | | | | | | tabletIndications: | | | | | | | Skin and Soft Tissue | | | | | | | Abscess | | | | | | + + + +---------+ + + | polyethylene | Take 17 g by mouth | 14 each | 0 | 02/29/20 | | | glycol (GLYCOLAX) | daily as needed for | | | 18 | 8 | | packet | up to 3 days. | | | | | + + + +---------+ + + | acetaminophen | Take 2 tablets by | 30 | 0 | 02/29/20 | | | (TYLENOL) 325 MG | mouth every 6 (six) | tablet | | 18 | 8 | | tablet | hours as needed for | | | | | | | up to 10 days. | | | | | + + + +---------+ + + | aspirin 81 MG | Take 81 mg by mouth | | | | | | chewable tablet | daily with | | | | 8 | | | breakfast. | | | | | + + + +---------+ + + | bisacodyl | Place 1 suppository | 1 | 0 | 02/29/20 | | | (DULCOLAX) 10 MG | rectally daily as | supposito | | 18 | 8 | | suppository | needed for up to 10 | ry | | | | | | days. | | | | | + + + +---------+ + + | clopidogrel | Take 1 tablet by | 90 | 0 | 10/20/19 | | | (PLAVIX) 75 MG | mouth daily. | tablet | | 18 | 8 | | tablet | | | | | | + + + +---------+ + + | glimepiride | Take 4 mg by mouth | | | 10/22/19 | | | (AMARYL) 4 MG tablet | every morning. | | | 18 | 8 | + + + +---------+ + + | | Take 1 tablet by | 30 | 0 | 02/29/20 | | | HYDROcodone-acetamin | mouth every 4 (four) | tablet | | 18 | 8 | | ophen (NORCO) 10-325 | hours as needed. | | | | | | MG per tablet | | | | | | + + + +---------+ + + | LORazepam (ATIVAN) | Take 1 tablet by | 30 | 0 | 02/29/20 | | | 0.5 MG tablet | mouth every 4 (four) | tablet | | 18 | 8 | | | hours as needed for | | | | | | | Anxiety. | | | | | + + + +---------+ + + | magnesium | Take 30 mLs by mouth | 360 mL | 0 | 02/29/20 | | | hydroxide (MILK OF | daily as needed for | | | 18 | 8 | | MAGNESIA) 400 MG/5ML | Constipation for up | | | | | | suspension | to 10 days. | | | | | + + + +---------+ + + | metFORMIN | Take 1,000 mg by | | | 07/23/20 | | | (GLUCOPHAGE) 500 MG | mouth 2 (two) times | | | 17 | 8 | | tablet | daily. | | | | | + + + +---------+ + + | nicotine (NICODERM | Place 1 patch onto | 28 | 0 | 02/29/20 | | | CQ) 21 MG/24HR | the skin daily for | patch | | 18 | 8 | | | 30 days. | | | | | + + + +---------+ + + as of this encounter Progress Notes Juany Padilla MD - 03/01/2018 10:03 AM PDTFormatting of this note may be different from t long original. [facility] Service: Vascular Surgery Progress Note Hospital Day: 7 ASSESSMENT & PLAN: 57 yo male patient s/p R popliteal to RECORDS ANALYSIS MANAGER bypass with reversed GSV. - Continue ASA/Plavix. - Prevena removed. Keep incisions clean and dry. - Working towards d/c to SNF. Vascular follow-up placed in discharge orders. - Very much appreicate IM mgmt. SUBJECTIVE: Doing OK. Denies pain. OBJECTIVE: Vital Signs: BP 120/66 (BP Location: Right upper arm) | Pulse 92 | Temp 97.7 F (36.5 C) (Oral) | Resp 18 | Ht 1.727 m (5' 8") | Wt 90.5 kg (199 lb 8.3 oz) | SpO2 95% | BMI 30.34 kg/m General: Awake, alert. No distress. CV: RRR. Lungs: Breathing comfortably on room air. Extremities: RLE dressings removed. Incisions clean and intact. Strong PT signal by Doppl er. DATA: CBC: Lab Results Component Value Date WBC 7.87 03/01/2018 RBC 3.78 (L) 03/01/2018 HGB 11.4 (L) 03/01/2018 HCT 33.3 (L) 03/01/2018 MCV 88.0 03/01/2018 MCH 30.2 03/01/2018 MCHC 34.4 03/01/2018 RDW 39.8 03/01/2018 PLT 350 03/01/2018 MPV 7.5 03/01/2018 DIFFTYPE AUTOMATED 03/01/2018 BMP: Lab Results Component Value Date NA 141 03/01/2018 K 3.9 03/01/2018 K 4.1 02/23/2018 CL 106 03/01/2018 CO2 28 03/01/2018 ANIONGAP 11 03/01/2018 GLUF 146 (H) 03/01/2018 BUN 12 03/01/2018 CREATININE 0.8 03/01/2018 BCR 15 03/01/2018 CA 8.8 03/01/2018 EGFR >60 03/01/2018 PT/INR: Lab Results Component Value Date INR 1.1 02/22/2018 PROBLEM LIST: Patient Active Problem List Diagnosis Foot ulcer with necrosis of bone, right (HCC) Critical lower limb ischemia PVD (peripheral vascular disease) (HCC) Essential hypertension DM (diabetes mellitus) (HCC) Code Status: Full Code Juany Padilla MD 10:03 AM Juany Padilla MD - 02/28/2018 7:22 AM PDTFormatting of this note may be different from t long original. [facility] Service: Vascular Surgery Progress Note Hospital Day: 6 ASSESSMENT & PLAN: 57 yo male patient s/p R popliteal to RECORDS ANALYSIS MANAGER bypass with reversed GSV. - Continue ASA/Plavix. - Continue Prevena for 7 days--will try remove this prior to discharge if possible. - Working towards d/c to SNF. - Very much appreicate IM mgmt. SUBJECTIVE: Doing OK. Denies pain. OBJECTIVE: Vital Signs: BP 120/66 (BP Location: Right upper arm) | Pulse 92 | Temp 97.7 F (36.5 C) (Oral) | Resp 18 | Ht 1.727 m (5' 8") | Wt 90.5 kg (199 lb 8.3 oz) | SpO2 95% | BMI 30.34 kg/m General: Awake, alert. No distress. CV: RRR. Lungs: Breathing comfortably on room air. Extremities: RLE with Prevena in place. Foot wrapped. PT signal by Doppler. DATA: CBC: Lab Results Component Value Date WBC 7.54 02/28/2018 RBC 3.66 (L) 02/28/2018 HGB 11.2 (L) 02/28/2018 HCT 32.3 (L) 02/28/2018 MCV 88.3 02/28/2018 MCH 30.5 02/28/2018 MCHC 34.6 02/28/2018 RDW 40.7 02/28/2018 PLT 321 02/28/2018 MPV 7.6 02/28/2018 DIFFTYPE AUTOMATED 02/28/2018 BMP: Lab Results Component Value Date NA 142 02/28/2018 K 4.1 02/28/2018 K 4.1 02/23/2018 CL 107 02/28/2018 CO2 28 02/28/2018 ANIONGAP 11 02/28/2018 GLUF 199 (H) 02/28/2018 BUN 12 02/28/2018 CREATININE 0.8 02/28/2018 BCR 15 02/28/2018 CA 8.4 (L) 02/28/2018 EGFR >60 02/28/2018 PT/INR: Lab Results Component Value Date INR 1.1 02/22/2018 PROBLEM LIST: Patient Active Problem List Diagnosis Foot ulcer with necrosis of bone, right (HCC) Critical lower limb ischemia PVD (peripheral vascular disease) ([facility]) Essential hypertension DM (diabetes mellitus) ([facility]) Code Status: Full Code Juany Padilla MD 7:22 AM Juany Padilla MD - 02/27/2018 7:58 AM PDTFormatting of this note may be different from t long original. [facility] Service: Vascular Surgery Progress Note Hospital Day: 5 ASSESSMENT & PLAN: 57 yo male patient s/p R popliteal to RECORDS ANALYSIS MANAGER bypass with reversed GSV. - Continue ASA/Plavix. - Continue Prevena for 7 days--will try remove this prior to discharge if possible. - Continue to work on mobility as tolerated and per podiatry recommendations. Suspect he w ill need IPR versus SNF for ongoing rehabilitation. - Very much appreicate IM mgmt. SUBJECTIVE: Doing OK. More confused this morning. OBJECTIVE: Vital Signs: BP 120/66 (BP Location: Right upper arm) | Pulse 92 | Temp 97.7 F (36.5 C) (Oral) | Resp 18 | Ht 1.727 m (5' 8") | Wt 90.5 kg (199 lb 8.3 oz) | SpO2 95% | BMI 30.34 kg/m General: Awake, alert. No distress. CV: RRR. Lungs: Breathing comfortably on room air. Extremities: RLE with Prevena in place. Foot wrapped. PT signal by Doppler. DATA: CBC: Lab Results Component Value Date WBC 9.41 02/27/2018 RBC 3.53 (L) 02/27/2018 HGB 11.0 (L) 02/27/2018 HCT 31.4 (L) 02/27/2018 MCV 89.1 02/27/2018 MCH 31.2 02/27/2018 MCHC 35.1 02/27/2018 RDW 40.7 02/27/2018 PLT 288 02/27/2018 MPV 7.6 02/27/2018 DIFFTYPE AUTOMATED 02/27/2018 BMP: Lab Results Component Value Date NA 144 02/27/2018 K 4.0 02/27/2018 K 4.1 02/23/2018 CL 109 02/27/2018 CO2 26 02/27/2018 ANIONGAP 13 02/27/2018 GLUF 179 (H) 02/27/2018 BUN 14 02/27/2018 CREATININE 0.8 02/27/2018 BCR 18 02/27/2018 CA 8.3 (L) 02/27/2018 EGFR >60 02/27/2018 PT/INR: Lab Results Component Value Date INR 1.1 02/22/2018 PROBLEM LIST: Patient Active Problem List Diagnosis Foot ulcer with necrosis of bone, right (HCC) Critical lower limb ischemia PVD (peripheral vascular disease) (HCC) Essential hypertension DM (diabetes mellitus) ([facility]) Code Status: Full Code Juany Padilla MD 7:58 AM Jojo Dudley MD - 02/27/2018 5:15 AM PDTFormatting of this note may be different from the original. [facility] Service: Hospitalist Progress Note Hospital Day: LOS: 5 days SUBJECTIVE Patient Summary: From [facility] Dr. Peña 02/21/18 The patient is a 57-year-old male with a significant past medical history of hypertension, diabetes, peripheral vascular disease, carotid vascular disease, who presents to the ED stat us post right second toe amputation with worsening symptoms. The patient with known history of peripheral arterial disease and positive foot ulcer, for which he has been seen by our vascular surgery here at [facility] and by podiatry. Two days ago, there were concerns of an infected ulcer on the second toe, right foot, in the distal phalanx, for which he underwent surgical intervention and subsequent amp utation on 02/19, two days ago. The patient refers that there were no surgical complication s, and when he went today for a followup with his professional bondsman, when they took off the bandage s there was clear discoloration of black toes, the foot was cold, and even though the patien t refers pain and numbness, he thought it was related to the recent surgical intervention. Due to these worrisome changes, the patient was subsequently brought to the ED for further m anagement. The patient does refer having been compliant with his medications, but he is uns ure if he is taking the Plavix. He denies any history of smoking tobacco but does refer to chewing on a daily basis. In the emergency department, the patient has remained hemodynamically stable. Vascular mango babatunde was consulted immediately, who are planning to do a diagnostic angiogram with possible intravascular interventions. At this point the patient will be admitted under the hospitalist service for further manage ment. 02/27/18 Patient continues with anxiety. Complains of consitpation POD #4 Taking adequate P Os. Scheduled Medications ampicillin-sulbactam 3 g Intravenous Q6H aspirin 81 mg Oral Daily with breakfast atorvastatin 40 mg Oral Nightly clopidogrel 75 mg Oral Daily famotidine 20 mg Oral BID Or famotidine 20 mg Intravenous BID insulin lispro (human) 0-3 Units Subcutaneous Nightly insulin lispro (human) 0-6 Units Subcutaneous TID AC losartan 25 mg Oral Daily metoprolol 12.5 mg Oral BID nicotine 1 patch Transdermal Daily vancomycin 15 mg/kg Intravenous Q12H Continuous Infusions dextrose sodium chloride (IV) 110 mL/hr at 02/27/18 0337 PRN Medications acetaminophen OR acetaminophen, dextrose, dextrose, dextrose, glucagon, glucagon, HYDRO codone-acetaminophen OR HYDROcodone-acetaminophen, magnesium hydroxide, ondansetron OR ondansetron, polyethylene glycol, saline lock IV - when tolerating PO fluids AND sodi um chloride (PF), zolpidem OBJECTIVE Vital Signs: BP (!) 163/91 (BP Location: Right forearm) | Pulse 89 | Temp 98.3 F (36.8 C) (Oral) | Resp 22 | Ht 1.6 m (5' 3") | Wt 106.3 kg (234 lb 5.6 oz) | SpO2 94% | BMI 41.51 kg/m Patient Vitals for the past 24 hrs: BP Temp Temp src Pulse Resp SpO2 Weight 02/27/18 0333 (!) 163/91 98.3 F (36.8 C) Oral 89 22 94 % 106.3 kg (234 lb 5.6 oz) 02/26/18 2304 (!) 167/105 98.3 F (36.8 C) Oral 110 20 92 % - 02/26/18 1935 169/89 98.4 F (36.9 C) Oral 114 22 98 % - 02/26/18 1534 (!) 168/91 98.5 F (36.9 C) Oral 112 24 98 % - 02/26/18 1105 159/80 97.7 F (36.5 C) Axillary 103 22 95 % - 02/26/18 0806 186/87 97.7 F (36.5 C) Oral 101 20 94 % - Intake/Output Summary (Last 24 hours) at 02/27/18 0515 Last data filed at 02/27/18 0337 Gross per 24 hour Intake 4054 ml Output 1675 ml Net 2379 ml Physical Exam Constitutional: He is oriented to person, place, and time and well-developed, well-nourishe d, and in no distress. No distress. Eyes: EOM are normal. Pupils are equal, round, and reactive to light. No scleral icterus. Cardiovascular: Normal rate and regular rhythm. Pulmonary/Chest: Effort normal and breath sounds normal. Abdominal: Soft. Bowel sounds are normal. Neurological: He is alert and oriented to person, place, and time. Skin: Skin is warm. He is not diaphoretic. R foot second toe amputation, wrapped Psychiatric: Mood and affect normal. Nursing note and vitals reviewed. DATA Recent Labs Lab 02/26/18 0454 02/25/18 0835 065 02/23/18 1609 WBC 11.23* 12.16* -- 10.11 RBC 3.84* 3.78* -- 4.44 HGB 12.0* 11.6* 11.6* 13.9 HCT 34.4* 33.6* 34* 39.2 MCV 89.6 88.8 -- 88.3 MCH 31.1 30.6 -- 31.2 MCHC 34.7 34.4 -- 35.3 RDW 41.1 40.7 -- 39.8 PLT 269 274 -- 245 MPV 7.8 7.2 -- 8.0 DIFFTYPE MANUAL AUTOMATED -- MANUAL Recent Labs Lab 02/26/18 0454 02/25/18 0835 02/24/18 0418 02/22/18 0330 02/21/18 2100 NA 141 139 139 -- 137 134* K 4.2 3.8 4.0 < > 4.1 4.1 CL 106 108 106 -- 102 97* CO2 23 25 22* -- 25 28 BUN 16 12 14 -- 15 14 CREATININE 0.9 0.81 0.7 -- 1.0 1.1 PROT -- -- -- -- 6.8 7.9 BILITOT -- -- -- -- 1.6* 2.0* ALT -- -- -- -- 25 28 AST -- -- -- -- 21 30 GLUF 218* 172* 123* -- 85 79 < > = values in this interval not displayed. Recent Labs Lab 02/21/18 2100 CKTOTAL 32* CKMBINDEX UNABLE TO CALCULATE No results for input(s): PHOS in the last 168 hours. Recent Labs Lab 02/22/18 0330 MG 1.9 Invalid input(s): ABG No results for input(s): CALCIUM in the last 168 hours. No results found. PROBLEM LIST Principal Problem: Critical lower limb ischemia Active Problems: Foot ulcer with necrosis of bone, right ([facility]) PVD (peripheral vascular disease) ([facility]) Essential hypertension DM (diabetes mellitus) ([facility]) ASSESSMENT & PLAN -Right foot erythema. With gangrene and PVD disease With signs of necrosis on the distal toes and surrounding cellulitis. Status post recent se cond toe amputation. -Peripheral vascular disease with Critical limb ischemia, subacute per history appreciate v ascular surgeon, Dr. Mueller. Plan for diagnostic angiogram with possible endovascular interven tions (including balloon angioplasty, stent placement, or atherectomy) of right lower extrem ity arterial stenosis on 02/23/18. POD#4 U/S shows 1. The proximal RECOR[employer] ANALYSIS MANAGER appears occluded with distal reconstitution via collaterals. 2. Mid peroneal artery appears occluded with distal reconstitution via collaterals. 3. Probable hemodynamically significant stenosis in proximal JOSE ANGEL. 4. 3 vessel monophasic hyperemic distal runoff with monophasic hyperemic flow in dorsalis pedis artery. Appreciate Podiatry consult, Dr. Garcia. Patient will undergoa transmetatarsal amputation Continued IV Zosyn and Vancomycin. High dose statin and Plavix -Hypertension -Diabetes mellitus Novolog SS insulin -hx of CAD On Metoprolol and Plavix Constipation Bowel regiment Disposition: Code Status: Prior Jojo Dudley MD 02/27/2018 5:15 AM Juany Padilla MD - 02/26/2018 12:42 PM PDTFormatting of this note may be different from t long original. [facility] Service: Vascular Surgery Progress Note Hospital Day: 4 ASSESSMENT & PLAN: 57 yo male patient s/p R popliteal to RECORDS ANALYSIS MANAGER bypass with reversed GSV. - Continue ASA/Plavix. - Continue Prevena for 7 days. - Continue to work on mobility as tolerated and per podiatry recommendations. - Very much appreicate IM mgmt. SUBJECTIVE: Doing well. Very upset that dilaudid made him so foggy and wants to ensure that he never r eceives it again. OBJECTIVE: Vital Signs: BP 120/66 (BP Location: Right upper arm) | Pulse 92 | Temp 97.7 F (36.5 C) (Oral) | Resp 18 | Ht 1.727 m (5' 8") | Wt 90.5 kg (199 lb 8.3 oz) | SpO2 95% | BMI 30.34 kg/m General: Awake, alert. No distress. CV: RRR. Lungs: Breathing comfortably on room air. Extremities: RLE with Prevena in place. Foot wrapped. DATA: CBC: Lab Results Component Value Date WBC 11.23 (H) 02/26/2018 RBC 3.84 (L) 02/26/2018 HGB 12.0 (L) 02/26/2018 HCT 34.4 (L) 02/26/2018 MCV 89.6 02/26/2018 MCH 31.1 02/26/2018 MCHC 34.7 02/26/2018 RDW 41.1 02/26/2018 PLT 269 02/26/2018 MPV 7.8 02/26/2018 DIFFTYPE MANUAL 02/26/2018 BMP: Lab Results Component Value Date NA 141 02/26/2018 K 4.2 02/26/2018 K 4.1 02/23/2018 CL 106 02/26/2018 CO2 23 02/26/2018 ANIONGAP 16 02/26/2018 GLUF 218 (H) 02/26/2018 BUN 16 02/26/2018 CREATININE 0.9 02/26/2018 BCR 18 02/26/2018 CA 8.7 02/26/2018 EGFR >60 02/26/2018 PT/INR: Lab Results Component Value Date INR 1.1 02/22/2018 PROBLEM LIST: Patient Active Problem List Diagnosis Foot ulcer with necrosis of bone, right (HCC) Critical lower limb ischemia PVD (peripheral vascular disease) ([facility]) Essential hypertension DM (diabetes mellitus) ([facility]) Code Status: Full Code Juany Padilla MD 12:43 PM Amilcar Garcia DPM - 02/26/2018 12:08 PM PDTFormatting of this note may be different from t long original. [facility] Service: Podiatry Progress Note Hospital Day: LOS: 4 days Post-Op Day: 1 Day Post-Op SUBJECTIVE Patient Summary: Patient is a 57-year-old male who has a history of hypertension shahab betes peripheral arterial disease and nonhealing amputation site to the right second toe wit h extensive gangrene. Patient has a known history of peripheral arterial disease with histories of ulcerations. 4 days ago the patient had concerns for an infected ulcer on the right second toe when she un derwent surgical intervention and amputation on 19 February the patient follow up with his podia trist and there was clear discoloration and blackening of the toe as well as the foot was co ld. Due to the changes the patient was subsequently brought to the emergency room for furthe r management he admits to chewing tobacco on a daily basis. Angiogram was performed which showed the need for further surgical intervention. Vascular did a bypass on 02/23/18 TMA to right foot 02/25/18. Events Overnight: Patient had moments of confusion. Scheduled Medications ampicillin-sulbactam 3 g Intravenous Q6H aspirin 81 mg Oral Daily with breakfast atorvastatin 40 mg Oral Nightly clopidogrel 75 mg Oral Daily famotidine 20 mg Oral BID Or famotidine 20 mg Intravenous BID insulin lispro (human) 0-3 Units Subcutaneous Nightly insulin lispro (human) 0-6 Units Subcutaneous TID AC losartan 25 mg Oral Daily metoprolol 12.5 mg Oral BID nicotine 1 patch Transdermal Daily vancomycin 15 mg/kg Intravenous Q12H Continuous Infusions dextrose sodium chloride (IV) 110 mL/hr at 02/26/18 0537 PRN Medications acetaminophen OR acetaminophen, dextrose, dextrose, dextrose, glucagon, glucagon, HYDRO codone-acetaminophen OR HYDROcodone-acetaminophen, HYDROmorphone OR HYDROmorphone, m agnesium hydroxide, ondansetron OR ondansetron, polyethylene glycol, saline lock IV - wh en tolerating PO fluids AND sodium chloride (PF), zolpidem OBJECTIVE Vital Signs: BP 159/80 (BP Location: Left forearm) | Pulse 103 | Temp 97.7 F (36.5 C) (Axillary) | Resp 22 | Ht 1.6 m (5' 3") | Wt 106.4 kg (234 lb 9.1 oz) | SpO2 95% | BMI 41.55 kg/m Temp: [97.7 F (36.5 C)-100.4 F (38 C)] 97.7 F (36.5 C) (02/26 110) BP: (132-200)/(63-95) 159/80 (02/26 1105) Heart Rate: [84-138] 103 (02/26 1105) Resp: [8-40] 22 (02/26 1105) SpO2: [84 %-97 %] 95 % (02/26 1105) Weight: [106.4 kg (234 lb 9.1 oz)] 106.4 kg (234 lb 9.1 oz) (02/26 49) FiO2 : [27 %-95 %] 93 % (02/25 2017) Physical Exam Vascular: Pedal pulses are lightly palpable to the right foot. Pulses are palpable to the l eft foot skin is SP TMA to right foot. Skin coapted. Skin is warm to touch. Minimal bleeding seen on dressing. Neuro: Loss of protective sensation to bilateral feet to light touch. MS: Deferred DATA CBC: Lab Results Component Value Date WBC 11.23 (H) 02/26/2018 RBC 3.84 (L) 02/26/2018 HGB 12.0 (L) 02/26/2018 HCT 34.4 (L) 02/26/2018 MCV 89.6 02/26/2018 MCH 31.1 02/26/2018 MCHC 34.7 02/26/2018 RDW 41.1 02/26/2018 PLT 269 02/26/2018 MPV 7.8 02/26/2018 DIFFTYPE MANUAL 02/26/2018 BMP: Lab Results Component Value Date NA 141 02/26/2018 K 4.2 02/26/2018 K 4.1 02/23/2018 CL 106 02/26/2018 CO2 23 02/26/2018 ANIONGAP 16 02/26/2018 GLUF 218 (H) 02/26/2018 BUN 16 02/26/2018 CREATININE 0.9 02/26/2018 BCR 18 02/26/2018 CA 8.7 02/26/2018 EGFR >60 02/26/2018 PROBLEM LIST Principal Problem: Critical lower limb ischemia Active Problems: Foot ulcer with necrosis of bone, right (HCC) PVD (peripheral vascular disease) ([facility]) Essential hypertension DM (diabetes mellitus) ([facility]) ASSESSMENT & PLAN Gangrene Peripheral arterial disease Diabetes Discussed lack of bleeding during surgery especially more on dorsal skin. This could indic ate poor healing potential.. Discussed waiting to see how foot responds to bypass and amput ation. As of right now Incision is well coapted and warm to the touch. Minimal bleeding seen on d ressing. Discussed dry dressing change every [address] Garcia in 1-2 weeks. Disposition: stable Code Status: Prior Amilcar Garcia DPM 02/26/2018Jojo Dudley MD - 02/26/2018 5:18 AM PDTFormatting of this note may be differ ent from the original. [facility] Service: Hospitalist Progress Note Hospital Day: LOS: 4 days SUBJECTIVE Patient Summary: From [facility] Dr. Peña 02/21/18 The patient is a 57-year-old male with a significant past medical history of hypertension, diabetes, peripheral vascular disease, carotid vascular disease, who presents to the ED stat us post right second toe amputation with worsening symptoms. The patient with known history of peripheral arterial disease and positive foot ulcer, for which he has been seen by our vascular surgery here at [facility] and by podiatry. Two days ago, there were concerns of an infected ulcer on the second toe, right foot, in the distal phalanx, for which he underwent surgical intervention and subsequent amp utation on 02/19, two days ago. The patient refers that there were no surgical complication s, and when he went today for a followup with his professional bondsman, when they took off the bandage s there was clear discoloration of black toes, the foot was cold, and even though the patien t refers pain and numbness, he thought it was related to the recent surgical intervention. Due to these worrisome changes, the patient was subsequently brought to the ED for further m anagement. The patient does refer having been compliant with his medications, but he is uns ure if he is taking the Plavix. He denies any history of smoking tobacco but does refer to chewing on a daily basis. In the emergency department, the patient has remained hemodynamically stable. Vascular mango babatunde was consulted immediately, who are planning to do a diagnostic angiogram with possible intravascular interventions. At this point the patient will be admitted under the hospitalist service for further manage ment. 02/26/18 Patient upset that he is not in charge of his medications. He became confused las t night, remembers scaring his mother. POD #3 Taking adequate POs. Scheduled Medications ampicillin-sulbactam 3 g Intravenous Q6H aspirin 81 mg Oral Daily with breakfast atorvastatin 40 mg Oral Nightly clopidogrel 75 mg Oral Daily famotidine 20 mg Oral BID Or famotidine 20 mg Intravenous BID insulin lispro (human) 0-3 Units Subcutaneous Nightly insulin lispro (human) 0-6 Units Subcutaneous TID AC losartan 25 mg Oral Daily metoprolol 12.5 mg Oral BID nicotine 1 patch Transdermal Daily vancomycin 15 mg/kg Intravenous Q12H Continuous Infusions dextrose sodium chloride (IV) 110 mL/hr at 02/26/18 0537 PRN Medications acetaminophen OR acetaminophen, dextrose, dextrose, dextrose, glucagon, glucagon, HYDRO codone-acetaminophen OR HYDROcodone-acetaminophen, HYDROmorphone OR HYDROmorphone, m agnesium hydroxide, ondansetron OR ondansetron, polyethylene glycol, saline lock IV - wh en tolerating PO fluids AND sodium chloride (PF), zolpidem OBJECTIVE Vital Signs: BP 186/87 (BP Location: Left upper arm) | Pulse 101 | Temp 97.7 F (36.5 C) (Oral) | Resp 20 | Ht 1.6 m (5' 3") | Wt 106.4 kg (234 lb 9.1 oz) | SpO2 94% | BMI 41.55 kg/m Patient Vitals for the past 24 hrs: BP Temp Temp src Pulse Resp SpO2 Weight 02/26/18 0806 186/87 97.7 F (36.5 C) Oral 101 20 94 % - 02/26/18 0349 139/83 98.6 F (37 C) Oral 95 20 96 % - 02/26/18 0200 132/71 - - 84 - 94 % - 02/26/18 0130 139/63 - - 87 - 93 % - 02/26/18 0100 135/63 - - 92 - 93 % - 02/26/18 0049 - - - - - - 106.4 kg (234 lb 9.1 oz) 02/26/18 0030 138/63 - - 92 - 93 % - 02/26/18 0000 153/74 98.7 F (37.1 C) Oral 92 - 91 % - 02/25/18 2330 151/70 - - 94 - 94 % - 02/25/18 2315 133/64 98.6 F (37 C) Axillary 94 22 93 % - 02/25/18 2300 135/67 - - 94 - - - 02/25/18 2245 136/74 - - 93 - 96 % - 02/25/18 2230 - - - 96 - - - 02/25/18 2215 148/64 - - 101 - 96 % - 02/25/18 2145 139/70 - - 107 - 97 % - 02/25/18 2137 141/74 98.2 F (36.8 C) Oral 109 24 97 % - 02/25/182124 - - - 114 - 97 % - 02/25/182119 167/70 - - 115 29 96 % - 02/25/182114 181/86 - - 113 24 96 % - 02/25/182109 183/84 - - 114 28 90 % - 02/25/182104 146/77 - - 116 30 95 % - 02/25/182099 150/68 - - 118 8 95 % - 02/25/182054 158/89 - - 118 30 95 % - 02/25/182049 - - - 118 (!) 31 92 % - 02/25/182044 165/90 - - 116 26 96 % - 02/25/182039 177/88 - - 122 (!) 33 93 % - 02/25/182034 (!) 200/95 - - 138 (!) 40 94 % - 02/25/182029 152/88 - - 126 (!) 32 (!) 84 % - 02/25/182024 132/77 - - 116 (!) 38 (!) 88 % - 02/25/182019 141/78 - - 110 17 97 % - 02/25/182018 143/83 98.9 F (37.2 C) Temporal 111 19 96 % - 02/25/18 1522 148/85 100.4 F (38 C) Oral 87 18 (!) 89 % - 02/25/18 1120 149/84 98.7 F (37.1 C) Oral - 18 92 % 106 kg (233 lb 9.6 oz) Intake/Output Summary (Last 24 hours) at 02/26/18 1101 Last data filed at 02/26/18 0808 Gross per 24 hour Intake 4139 ml Output 1525 ml Net 2614 ml Physical Exam Constitutional: He is oriented to person, place, and time and well-developed, well-nourishe d, and in no distress. No distress. Eyes: EOM are normal. Pupils are equal, round, and reactive to light. No scleral icterus. Cardiovascular: Normal rate and regular rhythm. Pulmonary/Chest: Effort normal and breath sounds normal. No respiratory distress. He has no wheezes. Abdominal: Soft. Bowel sounds are normal. There is no tenderness. There is no rebound. Neurological: He is alert and oriented to person, place, and time. Skin: Skin is warm. He is not diaphoretic. R foot second toe amputation, wrapped Psychiatric: Mood and affect normal. Nursing note and vitals reviewed. DATA Recent Labs Lab 02/26/1845302/25/18 0835 02/23/18205402/23/18 1609 WBC 11.23* 12.16* -- 10.11 RBC 3.84* 3.78* -- 4.44 HGB 12.0* 11.6* 11.6* 13.9 HCT 34.4* 33.6* 34* 39.2 MCV 89.6 88.8 -- 88.3 MCH 31.1 30.6 -- 31.2 MCHC 34.7 34.4 -- 35.3 RDW 41.1 40.7 -- 39.8 PLT 269 274 -- 245 MPV 7.8 7.2 -- 8.0 DIFFTYPE MANUAL AUTOMATED -- MANUAL Recent Labs Lab 02/26/1845302/25/1835 02/24/1841702/22/18 0330 02/21/18 2100 NA 141 139 139 -- 137 134* K 4.2 3.8 4.0 < > 4.1 4.1 CL 106 108 106 -- 102 97* CO2 23 25 22* -- 25 28 BUN 16 12 14 -- 15 14 CREATININE 0.9 0.81 0.7 -- 1.0 1.1 PROT -- -- -- -- 6.8 7.9 BILITOT -- -- -- -- 1.6* 2.0* ALT -- -- -- -- 25 28 AST -- -- -- -- 21 30 GLUF 218* 172* 123* -- 85 79 < > = values in this interval not displayed. Recent Labs Lab 02/21/18 2100 CKTOTAL 32* CKMBINDEX UNABLE TO CALCULATE No results for input(s): PHOS in the last 168 hours. Recent Labs Lab 02/22/18 0330 MG 1.9 Invalid input(s): ABG No results for input(s): CALCIUM in the last 168 hours. No results found. PROBLEM LIST Principal Problem: Critical lower limb ischemia Active Problems: Foot ulcer with necrosis of bone, right ([facility]) PVD (peripheral vascular disease) ([facility]) Essential hypertension DM (diabetes mellitus) ([facility]) ASSESSMENT & PLAN -Right foot erythema. With gangrene and PVD disease With signs of necrosis on the distal toes and surrounding cellulitis. Status post recent se cond toe amputation. -Peripheral vascular disease with Critical limb ischemia, subacute per history appreciate v ascular surgeon, Dr. Mueller. Plan for diagnostic angiogram with possible endovascular interven tions (including balloon angioplasty, stent placement, or atherectomy) of right lower extrem ity arterial stenosis on 02/23/18. POD#3 U/S shows 1. The proximal RECOR[employer] ANALYSIS MANAGER appears occluded with distal reconstitution via collaterals. 2. Mid peroneal artery appears occluded with distal reconstitution via collaterals. 3. Probable hemodynamically significant stenosis in proximal JOSE ANGEL. 4. 3 vessel monophasic hyperemic distal runoff with monophasic hyperemic flow in dorsalis pedis artery. Appreciate Podiatry consult, Dr. Garcia. Patient will undergoa transmetatarsal amputation Continued IV Zosyn and Vancomycin. High dose statin and Plavix -Hypertension -Diabetes mellitus Novolog SS insulin -hx of CAD On Metoprolol and Plavix Constipation Bowel regiment Disposition: Code Status: Prior Jojo Dudley MD 02/26/2018 11:01 AM Joey Purcell [facility] - 02/25/2018 9:51 PM PDTNote ccl 111.5ml/min meds reviewed pharma cy will follow [facility] [id number] lopez, [facility] - 02/25/2018 11:43 AM PDTClinical Pharmacy Note : Vancomycin Day 5 Goal Trough: 10-20 mcg/mL Current dose: 1500 mg IV Q12H Last trough: 18.6 mcg/mL 02/25 @ 0835 Patient weight updated to 106 kg. Vancomycin 1500 mg (14.1 mg/kg) Serum creatinine: 0.81 mg/dL 02/25/18 0835 Estimated creatinine clearance: 111.5 mL/min. Plan: Continue same dose. Next trough level to be determined at a later time. Puja Aquino, Pharm.D. Jojo Dudley MD - 02/25/2018 11:13 AM PDTFormatting of this note may be different from the original. [facility] Service: Hospitalist Progress Note Hospital Day: LOS: 3 days SUBJECTIVE Patient Summary: From [facility] Dr. Peña 02/21/18 The patient is a 57-year-old male with a significant past medical history of hypertension, diabetes, peripheral vascular disease, carotid vascular disease, who presents to the ED stat us post right second toe amputation with worsening symptoms. The patient with known history of peripheral arterial disease and positive foot ulcer, for which he has been seen by our vascular surgery here at [facility] and by podiatry. Two days ago, there were concerns of an infected ulcer on the second toe, right foot, in the distal phalanx, for which he underwent surgical intervention and subsequent amp utation on 02/19, two days ago. The patient refers that there were no surgical complication s, and when he went today for a followup with his professional bondsman, when they took off the bandage s there was clear discoloration of black toes, the foot was cold, and even though the patien t refers pain and numbness, he thought it was related to the recent surgical intervention. Due to these worrisome changes, the patient was subsequently brought to the ED for further m anagement. The patient does refer having been compliant with his medications, but he is uns ure if he is taking the Plavix. He denies any history of smoking tobacco but does refer to chewing on a daily basis. In the emergency department, the patient has remained hemodynamically stable. Vascular mango babatunde was consulted immediately, who are planning to do a diagnostic angiogram with possible intravascular interventions. At this point the patient will be admitted under the hospitalist service for further manage ment. 02/25/18 No new complaints. POD#2 taking adequate POs. Complains of constipation and dry m outh Scheduled Medications ampicillin-sulbactam 3 g Intravenous Q6H aspirin 81 mg Oral Daily with breakfast atorvastatin 40 mg Oral Nightly clopidogrel 75 mg Oral Daily famotidine 20 mg Oral BID Or famotidine 20 mg Intravenous BID insulin lispro (human) 0-3 Units Subcutaneous Nightly insulin lispro (human) 0-6 Units Subcutaneous TID AC losartan 25 mg Oral Daily metoprolol 12.5 mg Oral BID nicotine 1 patch Transdermal Daily vancomycin 15 mg/kg Intravenous Q12H Continuous Infusions dextrose sodium chloride (IV) 110 mL/hr at 02/24/18 7368 PRN Medications acetaminophen OR acetaminophen, dextrose, dextrose, dextrose, glucagon, glucagon, HYDRO codone-acetaminophen OR HYDROcodone-acetaminophen, HYDROmorphone OR HYDROmorphone, m agnesium hydroxide, ondansetron OR ondansetron, polyethylene glycol, zolpidem OBJECTIVE Vital Signs: BP 158/83 | Pulse 99 | Temp 98.1 F (36.7 C) (Oral) | Resp 18 | Ht 1.6 m (5' 3") | Wt (!) 232 kg (511 lb 7.5 oz) | SpO2 93% | BMI 90.60 kg/m Patient Vitals for the past 24 hrs: BP Temp Temp src Pulse Resp SpO2 Weight 02/25/18 0836 158/83 - - 99 - - - 02/25/18 0714 145/80 98.1 F (36.7 C) Oral 99 18 93 % - 02/25/18 0355 131/78 99.1 F (37.3 C) Oral 101 18 91 % (!) 232 kg (511 lb 7.5 oz) 02/24/18 2325 125/56 98.3 F (36.8 C) Oral 97 20 96 % - 02/24/18 2050 131/62 - - 98 - - - 02/24/18 1905 129/63 99.2 F (37.3 C) Oral 102 20 95 % - 02/24/18 1609 136/76 98.6 F (37 C) Axillary 100 20 94 % - 02/24/18 1600 133/76 - - 105 - - - 02/24/18 1530 - - - 100 - 94 % - 02/24/18 1500 125/71 - - 100 - 94 % - 02/24/18 1430 - - - 100 - 90 % - 02/24/18 1400 109/61 - - 98 - 94 % - 02/24/18 1330 - - - 93 - 96 % - 02/24/18 1300 134/74 - - 101 - 96 % - 02/24/18 1230 - - - - - 97 % - 02/24/18 1200 126/65 - - - - 95 % - 02/24/18 1130 126/76 - - - - - - Intake/Output Summary (Last 24 hours) at 02/25/18 1114 Last data filed at 02/25/18 1030 Gross per 24 hour Intake 3605 ml Output 2550 ml Net 1055 ml Physical Exam Constitutional: He is oriented to person, place, and time and well-developed, well-nourishe d, and in no distress. No distress. Eyes: EOM are normal. Pupils are equal, round, and reactive to light. No scleral icterus. Cardiovascular: Normal rate and regular rhythm. Pulmonary/Chest: Effort normal and breath sounds normal. No respiratory distress. He has no wheezes. He has no rales. Abdominal: Soft. Bowel sounds are normal. He exhibits no distension. There is no tenderness . There is no rebound. Neurological: He is alert and oriented to person, place, and time. Skin: Skin is warm. He is not diaphoretic. R foot second toe amputation, wrapped Psychiatric: Mood and affect normal. Nursing note and vitals reviewed. DATA Recent Labs Lab 02/25/18 0835 02/23/18205402/23/18 1609 02/22/18 0330 WBC 12.16* -- 10.11 15.21* RBC 3.78* -- 4.44 4.18* HGB 11.6* 11.6* 13.9 13.1* HCT 33.6* 34* 39.2 36.8* MCV 88.8 -- 88.3 88.1 MCH 30.6 -- 31.2 31.3 MCHC 34.4 -- 35.3 35.5 RDW 40.7 -- 39.8 39.4 PLT 274 -- 245 225 MPV 7.2 -- 8.0 7.7 DIFFTYPE AUTOMATED -- MANUAL AUTOMATED Recent Labs Lab 02/25/18 0835 02/24/18 0418 02/23/18205402/22/18 0330 02/21/18 2100 NA 139 139 -- 137 134* K 3.8 4.0 4.1 4.1 4.1 CL 108 106 -- 102 97* CO2 25 22* -- 25 28 BUN 12 14 -- 15 14 CREATININE 0.81 0.7 -- 1.0 1.1 PROT -- -- -- 6.8 7.9 BILITOT -- -- -- 1.6* 2.0* ALT -- -- -- 25 28 AST -- -- -- 21 30 GLUF 172* 123* -- 85 79 Recent Labs Lab 02/21/18 2100 CKTOTAL 32* CKMBINDEX UNABLE TO CALCULATE No results for input(s): PHOS in the last 168 hours. Recent Labs Lab 02/22/18 0330 MG 1.9 Invalid input(s): ABG No results for input(s): CALCIUM in the last 168 hours. No results found. PROBLEM LIST Principal Problem: Critical lower limb ischemia Active Problems: Foot ulcer with necrosis of bone, right ([facility]) PVD (peripheral vascular disease) ([facility]) Essential hypertension DM (diabetes mellitus) ([facility]) ASSESSMENT & PLAN -Right foot erythema. With gangrene and PVD disease With signs of necrosis on the distal toes and surrounding cellulitis. Status post recent se cond toe amputation. -Peripheral vascular disease with Critical limb ischemia, subacute per history appreciate v ascular surgeon, Dr. Mueller. Plan for diagnostic angiogram with possible endovascular interven tions (including balloon angioplasty, stent placement, or atherectomy) of right lower extrem ity arterial stenosis on 02/23/18. POD#2 U/S shows 1. The proximal RECORDS ANALYSIS MANAGER appears occluded with distal reconstitution via collaterals. 2. Mid peroneal artery appears occluded with distal reconstitution via collaterals. 3. Probable hemodynamically significant stenosis in proximal JOSE ANGEL. 4. 3 vessel monophasic hyperemic distal runoff with monophasic hyperemic flow in dorsalis pedis artery. Appreciate Podiatry consult, Dr. Garcia. Patient will undergoa transmetatarsal amputation Continue IV Zosyn and Vancomycin. High dose statin and Plavix -Hypertension -Diabetes mellitus Novolog SS insulin -hx of CAD On Metoprolol and Plavix Constipation Bowel regiment Disposition: Code Status: Full Code Jojo Dudley MD 02/25/2018 11:14 AM Corrine Cadet ARNP - 02/25/2018 8:50 AM PDTFormatting of this note may be different from the original. [facility] Service: Vascular Surgery Progress Note Hospital Day: LOS: 3 days Post-Op Day: 2 Days Post-Op SUBJECTIVE Patient Summary: 57 y.o. male patient has history of hypertension, diabetes mellitus type 2, and peripheral arterial disease with clinical manifestations of right lower extremi ty non-healing ulcerations of the right 2nd toe amputation site with extensive gangrene. The patient underwent right leg angiogram and balloon angioplasty of right anterior tibial and peroneal artery on 02/22/18 and right below knee popliteal artery to posterior tibial artery bypass on 02/23/2018 to restore arterial blood flow to the right foot to heal a transmetatars al amputation and prevent below knee amputation. Events Overnight: No acute events overnight. Planned for TMA today. Scheduled Medications ampicillin-sulbactam 3 g Intravenous Q6H aspirin 81 mg Oral Daily with breakfast atorvastatin 40 mg Oral Nightly clopidogrel 75 mg Oral Daily famotidine 20 mg Oral BID Or famotidine 20 mg Intravenous BID insulin lispro (human) 0-3 Units Subcutaneous Nightly insulin lispro (human) 0-6 Units Subcutaneous TID AC losartan 25 mg Oral Daily metoprolol 12.5 mg Oral BID nicotine 1 patch Transdermal Daily vancomycin 15 mg/kg Intravenous Q12H Continuous Infusions dextrose sodium chloride (IV) 110 mL/hr at 02/24/18 2359 PRN Medications acetaminophen OR acetaminophen, dextrose, dextrose, dextrose, glucagon, glucagon, HYDRO codone-acetaminophen OR HYDROcodone-acetaminophen, HYDROmorphone OR HYDROmorphone, m agnesium hydroxide, ondansetron OR ondansetron, polyethylene glycol, zolpidem OBJECTIVE Vital Signs: BP 158/83 | Pulse 99 | Temp 98.1 F (36.7 C) (Oral) | Resp 18 | Ht 1.6 m (5' 3") | Wt (!) 232 kg (511 lb 7.5 oz) | SpO2 93% | BMI 90.60 kg/m Constitutional: Well nourished, no signs of distress. Sleeping after pain medication HENT: Normocephalic and atraumatic.. Cardiovascular: regular rhythm and rate. Pulmonary/Chest: No respiratory distress. Abdominal: Soft. No abdominal distension or tenderness. Extremities: A non-healing wound is present in the right 2nd toe amputation site. Right thi gh and calf incision covered with Prevena dressing. VASCULAR: Strong Doppler signals in right Posterior Tibial artery in the right foot. moder ate right foot swelling. Assessment per Dr Ferrera DATA CBC: Lab Results Component Value Date WBC 10.11 02/23/2018 RBC 4.44 02/23/2018 HGB 11.6 (L) 02/23/2018 HGB 13.9 02/23/2018 HCT 34 (L) 02/23/2018 HCT 39.2 02/23/2018 MCV 88.3 02/23/2018 MCH 31.2 02/23/2018 MCHC 35.3 02/23/2018 RDW 39.8 02/23/2018 PLT 245 02/23/2018 MPV 8.0 02/23/2018 DIFFTYPE MANUAL 02/23/2018 BMP: Lab Results Component Value Date NA 139 02/24/2018 K 4.0 02/24/2018 K 4.1 02/23/2018 CL 106 02/24/2018 CO2 22 (L) 02/24/2018 ANIONGAP 15 02/24/2018 GLUF 123 (H) 02/24/2018 BUN 14 02/24/2018 CREATININE 0.7 02/24/2018 BCR 20 02/24/2018 CA 7.3 (L) 02/24/2018 EGFR >60 02/24/2018 PROBLEM LIST Principal Problem: Critical lower limb ischemia Active Problems: Foot ulcer with necrosis of bone, right ([facility]) PVD (peripheral vascular disease) ([facility]) Essential hypertension DM (diabetes mellitus) ([facility]) ASSESSMENT & PLAN PLAN PER DR MUELLER-The patient has great arterial perfusion to the right foot currently. He ca n undergo transmetatarsal amputation by Dr. Amilcar Garcia. Keep Prevena dressing for 7 days u ntil 03/01/2018. Prevena dressing can be removed at bedside if patient is still in the hospita l or can be removed at vascular surgery office if patient is discharged. Physical therapy an d weight bearing status per Podiatry recommendation. The patient will most likely be non quinn ght bearing on his right foot until TMA completely heals up. Encourage incentive spirometry breathing exercise. Continue pain management. Disposition: Continue medical management Code Status: Full Code RD Lovett 02/25/2018Johan Mueller MD - 02/25/2018 12:07 AM PDTFormatting of this note may be different from the original. [facility] Service: Vascular Surgery Progress Note Hospital Day: LOS: 3 days Post-Op Day: 2 Days Post-Op SUBJECTIVE Patient Summary: 57 y.o. male patient has history of hypertension, diabetes mellitus type 2, and peripheral arterial disease with clinical manifestations of right lower extremi ty non-healing ulcerations of the right 2nd toe amputation site with extensive gangrene. The patient underwent right leg angiogram and balloon angioplasty of right anterior tibial and peroneal artery on 02/22/18 and right below knee popliteal artery to posterior tibial artery bypass on 02/23/2018 to restore arterial blood flow to the right foot to heal a transmetatars al amputation and prevent below knee amputation. Events Overnight: No acute event. The patient's right foot is well perfused. He was ev aluated by professional bondsman, Dr. Garcia who will proceed with transmetatarsal amputation for the pa tient. Scheduled Medications ampicillin-sulbactam 3 g Intravenous Q6H aspirin 81 mg Oral Daily with breakfast atorvastatin 40 mg Oral Nightly clopidogrel 75 mg Oral Daily famotidine 20 mg Oral BID Or famotidine 20 mg Intravenous BID insulin lispro (human) 0-3 Units Subcutaneous Nightly insulin lispro (human) 0-6 Units Subcutaneous TID AC losartan 25 mg Oral Daily metoprolol 12.5 mg Oral BID nicotine 1 patch Transdermal Daily vancomycin 15 mg/kg Intravenous Q12H Continuous Infusions dextrose sodium chloride (IV) 110 mL/hr at 02/24/18 2359 PRN Medications acetaminophen OR acetaminophen, dextrose, dextrose, dextrose, glucagon, glucagon, HYDRO codone-acetaminophen OR HYDROcodone-acetaminophen, HYDROmorphone OR HYDROmorphone, m agnesium hydroxide, ondansetron OR ondansetron, polyethylene glycol, zolpidem OBJECTIVE Vital Signs: BP 125/56 (BP Location: Right upper arm) | Pulse 97 | Temp 98.3 F (36.8 C) (Oral) | Resp 20 | Ht 1.6 m (5' 3") | Wt 97.3 kg (214 lb 9.6 oz) | SpO2 96% | BMI 38.01 kg/m Constitutional: Well nourished, no signs of distress. Sleeping after pain medication HENT: Normocephalic and atraumatic.. Cardiovascular: regular rhythm and rate. Pulmonary/Chest: No respiratory distress. Abdominal: Soft. No abdominal distension or tenderness. Extremities: A non-healing wound is present in the right 2nd toe amputation site. Dry gangr danny with tissue necrosis was present in the wound. There was no tendon, bone, joint, or liga ment exposed. Gangrenous change in right dorsal forefoot. Right heel wound is covered with d ry scab. Right thigh and calf incision covered with Prevena dressing. VASCULAR: Palpable femoral pulses were present bilaterally. Dopplerable signals were prese nt in bilateral dorsalis pedis and bilateral posterior tibial arteries. Strong Doppler signa ls in right Posterior Tibial and Dorsalis Pedis artery in the right foot. Mild to moderate r ight foot swelling. DATA CBC: Lab Results Component Value Date WBC 10.11 02/23/2018 RBC 4.44 02/23/2018 HGB 11.6 (L) 02/23/2018 HGB 13.9 02/23/2018 HCT 34 (L) 02/23/2018 HCT 39.2 02/23/2018 MCV 88.3 02/23/2018 MCH 31.2 02/23/2018 MCHC 35.3 02/23/2018 RDW 39.8 02/23/2018 PLT 245 02/23/2018 MPV 8.0 02/23/2018 DIFFTYPE MANUAL 02/23/2018 BMP: Lab Results Component Value Date NA 139 02/24/2018 K 4.0 02/24/2018 K 4.1 02/23/2018 CL 106 02/24/2018 CO2 22 (L) 02/24/2018 ANIONGAP 15 02/24/2018 GLUF 123 (H) 02/24/2018 BUN 14 02/24/2018 CREATININE 0.7 02/24/2018 BCR 20 02/24/2018 CA 7.3 (L) 02/24/2018 EGFR >60 02/24/2018 PROBLEM LIST Principal Problem: Critical lower limb ischemia Active Problems: Foot ulcer with necrosis of bone, right ([facility]) PVD (peripheral vascular disease) ([facility]) Essential hypertension DM (diabetes mellitus) ([facility]) ASSESSMENT & PLAN Critical limb ischemia with right foot gangrene - Post operative day 1 right below knee pop liteal to posterior tibial artery bypass with non reversed great saphenous vein and status p ost right anterior tibial and peroneal artery balloon angioplasty. The patient has great art erial perfusion to the right foot currently. He can undergo transmetatarsal amputation by Dr Steven Garcia. Keep Prevena dressing for 7 days until 03/01/2018. Prevena dressing can be rem tom at bedside if patient is still in the hospital or can be removed at vascular surgery of [facility] if patient is discharged. Physical therapy and weight bearing status per Podiatry recom mendation. The patient will most likely be non weight bearing on his right foot until TMA co mpletely heals up. Encourage incentive spirometry breathing exercise. Continue pain manageme nt. Disposition: Continue medical management Code Status: Full Code Johan Mueller MD 02/25/2018Puja Aquino [facility] - 02/24/2018 12:13 PM PDTClinical Pharmacy Note: Vancomycin Da y 4 Goal Trough: 10-20 mcg/mL Current dose: 1500 mg IV Q12H Last trough: 16.6 mcg/mL 02/23 @ 0821 Serum creatinine: 0.7 mg/dL 02/24/18 0418 Estimated creatinine clearance: 123.3 mL/min. Plan: Continue same dose. Next trough level 02/25 @ 0830. Puja Aquino, Pharm.D. Amilcar Garcia DPM - 02/24/2018 7:08 AM PDTFormatting of this note may be different from t long original. [facility] Service: Podiatry Progress Note Hospital Day: LOS: 2 days Post-Op Day: 1 Day Post-Op SUBJECTIVE Patient Summary: Patient is a 57-year-old male who has a history of hypertension shahab betes peripheral arterial disease and nonhealing amputation site to the right second toe wit h extensive gangrene. Patient has a known history of peripheral arterial disease with histories of ulcerations. 4 days ago the patient had concerns for an infected ulcer on the right second toe when she un derwent surgical intervention and amputation on 19 February the patient follow up with his podia billyt and there was clear discoloration and blackening of the toe as well as the foot was co ld. Due to the changes the patient was subsequently brought to the emergency room for furthe r management he admits to chewing tobacco on a daily basis. Angiogram was performed which showed the need for further surgical intervention. Vascular did a bypass yesterday. Events Overnight: Patient is confused and couldn't remember if he had surgery yesterd ay. Scheduled Medications ampicillin-sulbactam 3 g Intravenous Q6H aspirin 81 mg Oral Daily with breakfast atorvastatin 40 mg Oral Nightly clopidogrel 75 mg Oral Daily famotidine 20 mg Oral BID Or famotidine 20 mg Intravenous BID insulin lispro (human) 0-3 Units Subcutaneous Nightly insulin lispro (human) 0-6 Units Subcutaneous TID AC losartan 25 mg Oral Daily metoprolol 12.5 mg Oral BID nicotine 1 patch Transdermal Daily vancomycin 15 mg/kg Intravenous Q12H Continuous Infusions dextrose sodium chloride (IV) 110 mL/hr at 02/24/18 0025 PRN Medications acetaminophen OR acetaminophen, dextrose, dextrose, dextrose, glucagon, glucagon, HYDRO codone-acetaminophen OR HYDROcodone-acetaminophen, HYDROmorphone OR HYDROmorphone, o ndansetron OR ondansetron, polyethylene glycol, zolpidem OBJECTIVE Vital Signs: BP 136/74 | Pulse 97 | Temp 97.5 F (36.4 C) (Oral) | Resp 14 | Ht 1.6 m (5' 3") | Wt 97.3 kg (214 lb 9.6 oz) | SpO2 96% | BMI 38.01 kg/m Temp: [97.5 F (36.4 C)-99.3 F (37.4 C)] 97.5 F (36.4 C) (02/25 424) BP: (113-158)/(57-89) 136/74 (02/24 600) Heart Rate: [94-105] 97 (02/24 600) Resp: [14-24] 14 (02/25 424) SpO2: [90 %-99 %] 96 % (02/24 600) FiO2 : [41 %-93 %] 88 % (02/23 2251) Physical Exam Vascular: Pedal pulses are lightly palpable to the right foot. Pulses are palpable to the l eft foot skin is cool and discolored to the dorsal right foot as well as the stump of the ri ght second toe is cyanotic. Serous drainage coming out of area of necrosis. cyanosis is see n along the dorsal mid foot Neuro: Loss of protective sensation to bilateral feet to light touch. MS: Deferred Derm: Necrosis to the second toe stump on the right foot. Cyanotic changes along the dorsal foot extending erythema beyond the cyanosis. No tendon ligament or bone is exposed. DATA CBC: Lab Results Component Value Date WBC 10.11 02/23/2018 RBC 4.44 02/23/2018 HGB 11.6 (L) 02/23/2018 HGB 13.9 02/23/2018 HCT 34 (L) 02/23/2018 HCT 39.2 02/23/2018 MCV 88.3 02/23/2018 MCH 31.2 02/23/2018 MCHC 35.3 02/23/2018 RDW 39.8 02/23/2018 PLT 245 02/23/2018 MPV 8.0 02/23/2018 DIFFTYPE MANUAL 02/23/2018 BMP: Lab Results Component Value Date NA 139 02/24/2018 K 4.0 02/24/2018 K 4.1 02/23/2018 CL 106 02/24/2018 CO2 22 (L) 02/24/2018 ANIONGAP 15 02/24/2018 GLUF 123 (H) 02/24/2018 BUN 14 02/24/2018 CREATININE 0.7 02/24/2018 BCR 20 02/24/2018 CA 7.3 (L) 02/24/2018 EGFR >60 02/24/2018 PROBLEM LIST Principal Problem: Critical lower limb ischemia Active Problems: Foot ulcer with necrosis of bone, right ([facility]) PVD (peripheral vascular disease) ([facility]) Essential hypertension DM (diabetes mellitus) ([facility]) ASSESSMENT & PLAN Gangrene Peripheral arterial disease Diabetes There is discussed with the patient extensively the risks involved with trying to save the leg versus a below-knee amputation. Discussed the benefit of trying to save the foot could a llow for earlier immobilization as well as ambulation. Discussed that a below-knee amputatio n would be a more definitive procedure with improved blood flow up the calf. There is discus sed that he could undergo the bypass as well as a transmetatarsal amputation and still not h eal the amputation site. Discussed the high risk of limb loss. The patient is aware of the benefits and risks of the planned procedure. Discussed ordering TCOM studies to see perfusion in foot. Discussed setting up amputation for possibly tomorrow if ok with Vasc and blood flow is adequate to foot. The patient is aware of potential risks from an amputation including wound infection and no nhealing bleeding risk further surgery. Disposition: stable Code Status: Full Code Amilcar Garcia DPM 02/24/2018Jojo Dudley MD - 02/24/2018 5:43 AM PDTFormatting of this note may be differ ent from the original. [facility] Service: Hospitalist Progress Note Hospital Day: LOS: 2 days SUBJECTIVE Patient Summary: From [facility] Dr. Peña 02/21/18 The patient is a 57-year-old male with a significant past medical history of hypertension, diabetes, peripheral vascular disease, carotid vascular disease, who presents to the ED stat us post right second toe amputation with worsening symptoms. The patient with known history of peripheral arterial disease and positive foot ulcer, for which he has been seen by our vascular surgery here at [facility] and by podiatry. Two days ago, there were concerns of an infected ulcer on the second toe, right foot, in the distal phalanx, for which he underwent surgical intervention and subsequent amp utation on 02/19, two days ago. The patient refers that there were no surgical complication s, and when he went today for a followup with his professional bondsman, when they took off the bandage s there was clear discoloration of black toes, the foot was cold, and even though the patien t refers pain and numbness, he thought it was related to the recent surgical intervention. Due to these worrisome changes, the patient was subsequently brought to the ED for further m anagement. The patient does refer having been compliant with his medications, but he is uns ure if he is taking the Plavix. He denies any history of smoking tobacco but does refer to chewing on a daily basis. In the emergency department, the patient has remained hemodynamically stable. Vascular mango babatunde was consulted immediately, who are planning to do a diagnostic angiogram with possible intravascular interventions. At this point the patient will be admitted under the hospitalist service for further manage ment. 02/24/18 No new complaints. POD#1, taking adequate POs. Complains of constipation Scheduled Medications ampicillin-sulbactam 3 g Intravenous Q6H aspirin 81 mg Oral Daily with breakfast atorvastatin 40 mg Oral Nightly clopidogrel 75 mg Oral Daily famotidine 20 mg Oral BID Or famotidine 20 mg Intravenous BID insulin lispro (human) 0-3 Units Subcutaneous Nightly insulin lispro (human) 0-6 Units Subcutaneous TID AC losartan 25 mg Oral Daily metoprolol 12.5 mg Oral BID nicotine 1 patch Transdermal Daily vancomycin 15 mg/kg Intravenous Q12H Continuous Infusions dextrose sodium chloride (IV) 110 mL/hr at 02/24/18 0025 PRN Medications acetaminophen OR acetaminophen, dextrose, dextrose, dextrose, glucagon, glucagon, HYDRO codone-acetaminophen OR HYDROcodone-acetaminophen, HYDROmorphone OR HYDROmorphone, o ndansetron OR ondansetron, polyethylene glycol, zolpidem OBJECTIVE Vital Signs: BP 111/62 | Pulse 97 | Temp 98.1 F (36.7 C) (Oral) | Resp 16 | Ht 1.6 m (5' 3") | Wt 97.3 kg (214 lb 9.6 oz) | SpO2 92% | BMI 38.01 kg/m Patient Vitals for the past 24 hrs: BP Temp Temp src Pulse Resp SpO2 02/24/18 0930 - - - 97 - 92 % 02/24/18 0900 111/62 - - 98 - 92 % 02/24/18 0830 - - - 97 - 91 % 02/24/18 0800 117/67 98.1 F (36.7 C) Oral 101 16 93 % 02/24/18 0730 - - - 100 - 93 % 02/24/18 0600 136/74 - - 97 - 96 % 02/24/18 0500 129/67 - - 96 - 95 % 02/24/18 0424 - 97.5 F (36.4 C) Oral 94 14 93 % 02/24/18 0400 132/75 - - 96 - 94 % 02/24/18 0300 147/77 - - 96 - 95 % 02/24/18 0230 - - - 96 16 96 % 02/24/18 0215 152/86 - - 103 - 95 % 02/24/18 0200 158/86 - - 105 - 97 % 02/24/18 0145 156/84 - - 103 - 94 % 02/24/18 0130 139/76 - - 98 - 93 % 02/24/18 0115 141/77 - - 100 14 93 % 02/24/18 0100 136/79 - - 97 - 94 % 02/24/18 0045 152/89 - - 100 - 95 % 02/24/18 0030 129/75 - - 101 - 93 % 02/24/18 0015 137/75 98.4 F (36.9 C) Oral 95 14 94 % 02/24/18 0005 - - - 98 - 94 % 02/24/18 0000 139/79 - - 97 - 91 % 02/23/18 2355 - - - 97 20 95 % 02/23/18 2350 - - - 99 19 95 % 02/23/18 2345 132/72 - - 99 15 94 % 02/23/18 2340 131/68 - - 101 20 94 % 02/23/18 2335 133/68 - - 101 18 94 % 02/23/18 2330 132/64 - - 102 14 94 % 02/23/18 2325 121/57 - - 104 22 90 % 02/23/18 2320 135/70 - - 100 15 94 % 02/23/18 2315 133/71 - - 100 19 95 % 02/23/18 2310 140/73 - - 101 21 98 % 02/23/18 2305 - - - 100 22 98 % 02/23/18 2303 121/79 - - 100 20 99 % 02/23/18 2257 113/80 97.8 F (36.6 C) Temporal 98 22 94 % 02/23/18 1548 139/79 99.3 F (37.4 C) Oral 98 20 95 % 02/23/18 1211 136/80 98.6 F (37 C) Oral 98 24 98 % Intake/Output Summary (Last 24 hours) at 02/24/18 1014 Last data filed at 02/24/18 0955 Gross per 24 hour Intake 3010 ml Output 1315 ml Net 1695 ml Physical Exam Constitutional: He is oriented to person, place, and time and well-developed, well-nourishe d, and in no distress. No distress. Eyes: EOM are normal. Pupils are equal, round, and reactive to light. No scleral icterus. Cardiovascular: Normal rate and regular rhythm. Pulmonary/Chest: Effort normal and breath sounds normal. He has no wheezes. Abdominal: Soft. Bowel sounds are normal. He exhibits no distension. There is no tenderness . Neurological: He is alert and oriented to person, place, and time. Skin: Skin is warm. He is not diaphoretic. R foot second toe amputation, wrapped Psychiatric: Mood and affect normal. Nursing note and vitals reviewed. DATA Recent Labs Lab 02/23/18 2055 02/23/18 1609 02/22/18 0330 02/21/18 2100 WBC -- 10.11 15.21* 16.21* RBC -- 4.44 4.18* 4.73 HGB 11.6* 13.9 13.1* 14.6 HCT 34* 39.2 36.8* 41.4 MCV -- 88.3 88.1 87.6 MCH -- 31.2 31.3 30.9 MCHC -- 35.3 35.5 35.3 RDW -- 39.8 39.4 39.8 PLT -- 245 225 261 MPV -- 8.0 7.7 7.3 DIFFTYPE -- MANUAL AUTOMATED AUTOMATED Recent Labs Lab 02/24/18 0418 02/23/18205402/22/18 0330 02/21/18 2100 NA 139 -- 137 134* K 4.0 4.1 4.1 4.1 CL 106 -- 102 97* CO2 22* -- 25 28 BUN 14 -- 15 14 CREATININE 0.7 -- 1.0 1.1 PROT -- -- 6.8 7.9 BILITOT -- -- 1.6* 2.0* ALT -- -- 25 28 AST -- -- 21 30 GLUF 123* -- 85 79 Recent Labs Lab 02/21/18 2100 CKTOTAL 32* CKMBINDEX UNABLE TO CALCULATE No results for input(s): PHOS in the last 168 hours. Recent Labs Lab 02/22/18 0330 MG 1.9 Invalid input(s): ABG No results for input(s): CALCIUM in the last 168 hours. No results found. PROBLEM LIST Principal Problem: Critical lower limb ischemia Active Problems: Foot ulcer with necrosis of bone, right ([facility]) PVD (peripheral vascular disease) ([facility]) Essential hypertension DM (diabetes mellitus) ([facility]) ASSESSMENT & PLAN -Right foot erythema. With gangrene and PVD disease With signs of necrosis on the distal toes and surrounding cellulitis. Status post recent se cond toe amputation. -Peripheral vascular disease with Critical limb ischemia, subacute per history appreciate v ascular surgeon, Dr. Mueller. Plan for diagnostic angiogram with possible endovascular interven tions (including balloon angioplasty, stent placement, or atherectomy) of right lower extrem ity arterial stenosis on 02/23/18. POD#1 U/S shows 1. The proximal RECORDS ANALYSIS MANAGER appears occluded with distal reconstitution via collaterals. 2. Mid peroneal artery appears occluded with distal reconstitution via collaterals. 3. Probable hemodynamically significant stenosis in proximal JOSE ANGEL. 4. 3 vessel monophasic hyperemic distal runoff with monophasic hyperemic flow in dorsalis pedis artery. Appreciate Podiatry consult, Dr. Garcia. Patient will undergoa transmetatarsal amputation i n 1-2 days. Continue IV Zosyn and Vancomycin. High dose statin and Plavix -Hypertension -Diabetes mellitus Novolog SS insulin -hx of CAD On Metoprolol and Plavix Constipation Bowel regiment Disposition: Code Status: Full Code Jojo Dudley MD 02/24/2018 10:14 AM Jojo Dudley MD - 02/23/2018 5:57 AM PDTFormatting of this note may be different from the original. [facility] Service: Hospitalist Progress Note Hospital Day: LOS: 1 day SUBJECTIVE Patient Summary: From [facility] Dr. Peña 02/21/18 The patient is a 57-year-old male with a significant past medical history of hypertension, diabetes, peripheral vascular disease, carotid vascular disease, who presents to the ED stat us post right second toe amputation with worsening symptoms. The patient with known history of peripheral arterial disease and positive foot ulcer, for which he has been seen by our vascular surgery here at [facility] and by podiatry. Two days ago, there were concerns of an infected ulcer on the second toe, right foot, in the distal phalanx, for which he underwent surgical intervention and subsequent amp utation on 02/19, two days ago. The patient refers that there were no surgical complication s, and when he went today for a followup with his professional bondsman, when they took off the bandage s there was clear discoloration of black toes, the foot was cold, and even though the patien t refers pain and numbness, he thought it was related to the recent surgical intervention. Due to these worrisome changes, the patient was subsequently brought to the ED for further m anagement. The patient does refer having been compliant with his medications, but he is uns ure if he is taking the Plavix. He denies any history of smoking tobacco but does refer to chewing on a daily basis. In the emergency department, the patient has remained hemodynamically stable. Vascular mango fine was consulted immediately, who are planning to do a diagnostic angiogram with possible intravascular interventions. At this point the patient will be admitted under the hospitalist service for further manage ment. 02/23/18 No new complaints. Afebrile. Comfortable. NPO, though hungry Scheduled Medications ampicillin-sulbactam 3 g Intravenous Q6H aspirin 81 mg Oral Daily with breakfast atorvastatin 40 mg Oral Nightly clopidogrel 75 mg Oral Daily famotidine 20 mg Oral BID Or famotidine 20 mg Intravenous BID insulin lispro (human) 0-3 Units Subcutaneous Nightly insulin lispro (human) 0-6 Units Subcutaneous TID AC losartan 25 mg Oral Daily metoprolol 12.5 mg Oral BID nicotine 1 patch Transdermal Daily vancomycin 15 mg/kg Intravenous Q12H Continuous Infusions dextrose sodium chloride (IV) 110 mL/hr at 02/23/18 1040 PRN Medications acetaminophen OR acetaminophen, dextrose, dextrose, dextrose, glucagon, glucagon, HYDRO codone-acetaminophen, HYDROmorphone OR HYDROmorphone, ondansetron OR ondansetron, po lyethylene glycol, zolpidem OBJECTIVE Vital Signs: BP 136/80 (BP Location: Right upper arm) | Pulse 98 | Temp 98.6 F (37 C) (Oral) | Re sp 24 | Ht 1.6 m (5' 3") | Wt 97.3 kg (214 lb 9.6 oz) | SpO2 98% | BMI 38.01 kg/m Patient Vitals for the past 24 hrs: BP Temp Temp src Pulse Resp SpO2 Weight 02/23/18 1211 136/80 98.6 F (37 C) Oral 98 24 98 % - 02/23/18 0745 133/72 98.6 F (37 C) Oral 104 18 97 % - 02/23/18 0309 132/74 98.4 F (36.9 C) Oral 104 20 97 % - 02/23/18 0152 - - - - - - 97.3 kg (214 lb 9.6 oz) 02/23/18 0110 117/65 - - 103 - 94 % - 02/23/18 0010 126/68 - - 104 - 96 % - 02/22/18 2310 130/75 - - 105 - 97 % - 02/22/18 2258 132/75 99.4 F (37.4 C) Oral 104 16 96 % - 02/22/182239 131/80 - - 103 - 97 % - 02/22/182209 131/77 - - 107 - 95 % - 02/22/182154 128/74 - - 105 - 96 % - 02/22/182138 135/73 - - 104 16 97 % - 02/22/182122 132/79 99.2 F (37.3 C) Oral 107 16 95 % - 02/22/182034 132/72 - - 104 15 99 % - 02/22/182029 141/65 - - 105 16 98 % - 02/22/182024 129/66 - - 105 16 100 % - 02/22/182019 129/70 - - 106 16 100 % - 02/22/182014 139/76 - - 106 16 100 % - 02/22/182009 131/70 - - 105 16 99 % - 02/22/182004 128/72 - - 105 16 99 % - 02/22/181999 123/73 - - 107 16 100 % - 02/22/18 1955 - - - 105 18 100 % - 02/22/18 1950 135/74 - - 104 17 100 % - 02/22/18 1945 143/75 - - 105 18 100 % - 02/22/18 1940 151/81 - - 109 16 100 % - 02/22/18 1935 135/75 - - 107 16 100 % - 02/22/18 1930 139/81 - - 107 20 100 % - 02/22/18 1925 131/81 - - 109 16 100 % - 02/22/18 1920 138/81 - - 109 16 100 % - 02/22/18 1915 119/75 - - 107 16 100 % - 02/22/18 1910 128/77 - - 106 16 100 % - 02/22/18 1903 151/77 - - 105 16 98 % - 02/22/18 1840 150/87 - - 108 16 98 % - 02/22/18 1658 150/81 99.2 F (37.3 C) Oral 107 18 97 % - Intake/Output Summary (Last 24 hours) at 02/23/18 1545 Last data filed at 02/23/18 0837 Gross per 24 hour Intake 800 ml Output 1075 ml Net -275 ml Physical Exam Constitutional: He is oriented to person, place, and time and well-developed, well-nourishe d, and in no distress. No distress. Eyes: EOM are normal. Pupils are equal, round, and reactive to light. No scleral icterus. Cardiovascular: Normal rate and regular rhythm. Pulmonary/Chest: Effort normal and breath sounds normal. Abdominal: Soft. Bowel sounds are normal. Neurological: He is alert and oriented to person, place, and time. Skin: He is not diaphoretic. R foot second toe amputation, wrapped Psychiatric: Mood and affect normal. Nursing note and vitals reviewed. DATA Recent Labs Lab 02/22/18 0330 02/21/18 2100 WBC 15.21* 16.21* RBC 4.18* 4.73 HGB 13.1* 14.6 HCT 36.8* 41.4 MCV 88.1 87.6 MCH 31.3 30.9 MCHC 35.5 35.3 RDW 39.4 39.8 PLT 225 261 MPV 7.7 7.3 DIFFTYPE AUTOMATED AUTOMATED Recent Labs Lab 02/22/18 0330 02/21/18 2100 NA 137 134* K 4.1 4.1 CL 102 97* CO2 25 28 BUN 15 14 CREATININE 1.0 1.1 PROT 6.8 7.9 BILITOT 1.6* 2.0* ALT 25 28 AST 21 30 GLUF 85 79 Recent Labs Lab 02/21/18 2100 CKTOTAL 32* CKMBINDEX UNABLE TO CALCULATE No results for input(s): PHOS in the last 168 hours. Recent Labs Lab 02/22/18 0330 MG 1.9 Invalid input(s): ABG No results for input(s): CALCIUM in the last 168 hours. No results found. PROBLEM LIST Principal Problem: Critical lower limb ischemia Active Problems: Foot ulcer with necrosis of bone, right (HCC) PVD (peripheral vascular disease) ([facility]) Essential hypertension DM (diabetes mellitus) ([facility]) ASSESSMENT & PLAN -Right foot erythema. With gangrene and PVD disease With signs of necrosis on the distal toes and surrounding cellulitis. Status post recent se cond toe amputation. -Peripheral vascular disease with Critical limb ischemia, subacute per history appreciate v ascular surgeon, Dr. Mueller. Plan for diagnostic angiogram with possible endovascular interven tions (including balloon angioplasty, stent placement, or atherectomy) of right lower extrem ity arterial stenosis on 02/22-. U/S shows 1. The proximal [employer]OR[employer] ANAL[employer]IS MANAGER appears occluded with distal reconstitution via collaterals. 2. Mid peroneal artery appears occluded with distal reconstitution via collaterals. 3. Probable hemodynamically significant stenosis in proximal JOSE ANGEL. 4. 3 vessel monophasic hyperemic distal runoff with monophasic hyperemic flow in dorsalis pedis artery. Appreciate Podiatry consult, Dr. Garcia. Patient will undergoa transmetatarsal amputation i n 1-2 days. Continue IV Zosyn and Vancomycin. High dose statin and Plavix -Hypertension -Diabetes mellitus Novolog SS insulin -hx of CAD On Metoprolol and Plavix Disposition: Code Status: Full Code Jojo Dudley MD 02/23/2018 3:45 PM Jojo Dudley MD - 02/22/2018 6:18 AM PDTFormatting of this note may be different from the original. [facility] Service: Hospitalist Progress Note Hospital Day: LOS: 0 days SUBJECTIVE Patient Summary: From HPI Dr. Peña 02/21/18 The patient is a 57-year-old male with a significant past medical history of hypertension, diabetes, peripheral vascular disease, carotid vascular disease, who presents to the ED stat us post right second toe amputation with worsening symptoms. The patient with known history of peripheral arterial disease and positive foot ulcer, for which he has been seen by our vascular surgery here at [facility] and by podiatry. Two days ago, there were concerns of an infected ulcer on the second toe, right foot, in the distal phalanx, for which he underwent surgical intervention and subsequent amp utation on 02/19, two days ago. The patient refers that there were no surgical complication s, and when he went today for a followup with his professional bondsman, when they took off the bandage s there was clear discoloration of black toes, the foot was cold, and even though the patien t refers pain and numbness, he thought it was related to the recent surgical intervention. Due to these worrisome changes, the patient was subsequently brought to the ED for further m anagement. The patient does refer having been compliant with his medications, but he is uns ure if he is taking the Plavix. He denies any history of smoking tobacco but does refer to chewing on a daily basis. In the emergency department, the patient has remained hemodynamically stable. Vascular mango babatunde was consulted immediately, who are planning to do a diagnostic angiogram with possible intravascular interventions. At this point the patient will be admitted under the hospitalist service for further manage ment. 02/22/18 No new complaints. Afebrile. Scheduled Medications aspirin 81 mg Oral Daily with breakfast atorvastatin 40 mg Oral Nightly clopidogrel 75 mg Oral Daily famotidine 20 mg Oral BID insulin lispro (human) 0-3 Units Subcutaneous Nightly insulin lispro (human) 0-6 Units Subcutaneous TID AC losartan 25 mg Oral Daily metoprolol 12.5 mg Oral BID Continuous Infusions dextrose famotidine heparin 50 units/mL 15 Units/kg/hr (02/22/18 0520) piperacillin-tazobactam 3.375 g (02/22/18 0353) sodium chloride (IV) 110 mL/hr at 02/22/18 0353 PRN Medications acetaminophen OR acetaminophen, dextrose, dextrose, dextrose, glucagon, glucagon, hepar in (porcine) 5000 unit/0.5mL, heparin (porcine) 5000 unit/0.5mL, HYDROcodone-acetaminophen, HYDROmorphone OR HYDROmorphone, ondansetron OR ondansetron, polyethylene glycol, zol pidem OBJECTIVE Vital Signs: BP 118/81 | Pulse 94 | Temp 98.2 F (36.8 C) (Temporal) | Resp 16 | Ht 1.6 m (5' 3") | Wt 94.7 kg (208 lb 12.4 oz) | SpO2 96% | BMI 36.98 kg/m Patient Vitals for the past 24 hrs: BP Temp Temp src Pulse Resp SpO2 Height Weight 02/22/18 0500 - - - - - - 1.6 m (5' 3") - 02/22/18 0427 - 98.2 F (36.8 C) Temporal - - - - - 02/22/18 0401 118/81 - - 94 - - - - 02/22/18 0149 142/80 - - 94 16 96 % - - 02/22/18 0017 121/63 - - - - 94 % - - 02/21/18 2347 122/60 - - - - 94 % - - 02/21/18 2317 122/65 - - - - 98 % - - 02/21/182251 139/69 - - - - 93 % - - 02/21/187 134/64 99 F (37.2 C) Oral 103 17 99 % - - 02/21/182216 135/69 - - - - 98 % - - 02/21/182210 132/74 - - 104 16 98 % - - 02/21/182146 116/59 - - 108 16 97 % - - 02/21/182127 134/59 - - 115 15 99 % - - 02/21/182043 153/78 100.1 F (37.8 C) Oral 111 19 97 % - - 02/21/182005 157/75 99.6 F (37.6 C) - 114 20 98 % - 94.7 kg (208 lb 12.4 oz) Intake/Output Summary (Last 24 hours) at 02/22/18617 Last data filed at 02/21/182253 Gross per 24 hour Intake 50 ml Output 0 ml Net 50 ml Physical Exam Constitutional: He is oriented to person, place, and time and well-developed, well-nourishe d, and in no distress. No distress. HENT: Head: Normocephalic and atraumatic. Eyes: EOM are normal. Pupils are equal, round, and reactive to light. No scleral icterus. Cardiovascular: Normal rate and regular rhythm. Pulmonary/Chest: Effort normal and breath sounds normal. Abdominal: Soft. Bowel sounds are normal. Neurological: He is alert and oriented to person, place, and time. Skin: Skin is warm and dry. He is not diaphoretic. R foot, 2nd toe amputation Psychiatric: Mood and affect normal. Nursing note and vitals reviewed. DATA Recent Labs Lab 02/22/18 0330 02/21/18 2100 WBC 15.21* 16.21* RBC 4.18* 4.73 HGB 13.1* 14.6 HCT 36.8* 41.4 MCV 88.1 87.6 MCH 31.3 30.9 MCHC 35.5 35.3 RDW 39.4 39.8 PLT 225 261 MPV 7.7 7.3 DIFFTYPE AUTOMATED AUTOMATED Recent Labs Lab 02/22/18 0330 02/21/18 2100 NA 137 134* K 4.1 4.1 CL 102 97* CO2 25 28 BUN 15 14 CREATININE 1.0 1.1 PROT 6.8 7.9 BILITOT 1.6* 2.0* ALT 25 28 AST 21 30 GLUF 85 79 Recent Labs Lab 02/21/18 2100 CKTOTAL 32* CKMBINDEX UNABLE TO CALCULATE No results for input(s): PHOS in the last 168 hours. Recent Labs Lab 02/22/18 0330 MG 1.9 Invalid input(s): ABG No results for input(s): CALCIUM in the last 168 hours. No results found. PROBLEM LIST Principal Problem: Critical lower limb ischemia Active Problems: Foot ulcer with necrosis of bone, right ([facility]) PVD (peripheral vascular disease) ([facility]) Essential hypertension DM (diabetes mellitus) ([facility]) ASSESSMENT & PLAN -Right foot erythema. With signs of necrosis on the distal toes and surrounding cellulitis. Status post recent se cond toe amputation. -Peripheral vascular disease with Critical limb ischemia, subacute per history. Positive si gns of gangrene.? Salvageable, may require amputation Appreciate Vascular surgery consult, Dr. Mueller who is planning for angiogram with future endo vascular interventions. U/S shows 1. The proximal RECOR[employer] ANALYSIS MANAGER appears occluded with distal reconstitution via collaterals. 2. Mid peroneal artery appears occluded with distal reconstitution via collaterals. 3. Probable hemodynamically significant stenosis in proximal JOSE ANGEL. 4. 3 vessel monophasic hyperemic distal runoff with monophasic hyperemic flow in dorsalis pedis artery. Continue IV Zosyn and Vancomycin. High dose statin and Plavix -Hypertension -Diabetes mellitus Novolog SS insulin -hx of CAD On Metoprolol and Plavix Disposition: Code Status: Full Code Jojo Dudley MD 02/22/2018 6:18 AM in this encounter Plan of Treatment +--------+---------+ + + + | Date | Type | Specialty | Care Team | Description | +--------+---------+ + + + | 04/18/ | Office | Vascular Surgery | Chris Duggan DNP | | | 2017 | Visit | | [address] | | | | | | [place] | | | | | | [id number] | | | | | | | | +--------+---------+ + + + as of this encounter Procedures + +--------+ + + + | Procedure Name | Priori | Date/Time | Associated Diagnosis | Comments | | | ty | | | | + +--------+ + + + | POCT GLUCOSE | Routin | 03/01/2018 | | Results for this | | | e | 11:21 AM | | procedure are in the | | | | PDT | | results section. | + +--------+ + + + | CBC W/AUTO DIFF | Routin | 03/01/2018 | | Results for this | | (REFLEX TO MANUAL) | e | 5:26 AM | | procedure are in the | | | | PDT | | results section. | + +--------+ + + + | POCT GLUCOSE | Routin | 03/01/2018 | | Results for this | | | e | 5:26 AM | | procedure are in the | | | | PDT | | results section. | + +--------+ + + + | BASIC METABOLIC | Routin | 03/01/2018 | | Results for this | | PANEL | e | 5:26 AM | | procedure are in the | | | | PDT | | results section. | + +--------+ + + + | POCT GLUCOSE | Routin | 02/28/2018 | | Results for this | | | e | 9:04 PM | | procedure are in the | | | | PDT | | results section. | + +--------+ + + + | POCT GLUCOSE | Routin | 02/28/2018 | | Results for this | | | e | 5:08 PM | | procedure are in the | | | | PDT | | results section. | + +--------+ + + + | POCT GLUCOSE | Routin | 02/28/2018 | | Results for this | | | e | 12:01 PM | | procedure are in the | | | | PDT | | results section. | + +--------+ + + + | CBC W/AUTO DIFF | Routin | 02/28/2018 | | Results for this | | (REFLEX TO MANUAL) | e | 5:11 AM | | procedure are in the | | | | PDT | | results section. | + +--------+ + + + | BASIC METABOLIC | Routin | 02/28/2018 | | Results for this | | PANEL | e | 5:11 AM | | procedure are in the | | | | PDT | | results section. | + +--------+ + + + | POCT GLUCOSE | Routin | 02/28/2018 | | Results for this | | | e | 5:05 AM | | procedure are in the | | | | PDT | | results section. | + +--------+ + + + | PATHOLOGY HISTOLOGY | Routin | 02/28/2018 | | Results for this | | - TISSUE | e | 12:00 AM | | procedure are in the | | | | PDT | | results section. | + +--------+ + + + | POCT GLUCOSE | Routin | 02/27/2018 | | Results for this | | | e | 8:29 PM | | procedure are in the | | | | PDT | | results section. | + +--------+ + + + | POCT GLUCOSE | Routin | 02/27/2018 | | Results for this | | | e | 4:19 PM | | procedure are in the | | | | PDT | | results section. | + +--------+ + + + | POCT GLUCOSE | Routin | 02/27/2018 | | Results for this | | | e | 11:02 AM | | procedure are in the | | | | PDT | | results section. | + +--------+ + + + | POCT GLUCOSE | Routin | 02/27/2018 | | Results for this | | | e | 5:17 AM | | procedure are in the | | | | PDT | | results section. | + +--------+ + + + | CBC W/AUTO DIFF | Routin | 02/27/2018 | | Results for this | | (REFLEX TO MANUAL) | e | 4:53 AM | | procedure are in the | | | | PDT | | results section. | + +--------+ + + + | BASIC METABOLIC | Routin | 02/27/2018 | | Results for this | | PANEL | e | 4:53 AM | | procedure are in the | | | | PDT | | results section. | + +--------+ + + + | POCT GLUCOSE | Routin | 02/26/2018 | | Results for this | | | e | 9:06 PM | | procedure are in the | | | | PDT | | results section. | + +--------+ + + + | POCT GLUCOSE | Routin | 02/26/2018 | | Results for this | | | e | 5:00 PM | | procedure are in the | | | | PDT | | results section. | + +--------+ + + + | POCT GLUCOSE | Routin | 02/26/2018 | | Results for this | | | e | 11:04 AM | | procedure are in the | | | | PDT | | results section. | + +--------+ + + + | POCT GLUCOSE | Routin | 02/26/2018 | | Results for this | | | e | 5:18 AM | | procedure are in the | | | | PDT | | results section. | + +--------+ + + + | CBC W/AUTO DIFF | Routin | 02/26/2018 | | Results for this | | (REFLEX TO MANUAL) | e | 4:54 AM | | procedure are in the | | | | PDT | | results section. | + +--------+ + + + | BASIC METABOLIC | Routin | 02/26/2018 | | Results for this | | PANEL | e | 4:54 AM | | procedure are in the | | | | PDT | | results section. | + +--------+ + + + | POCT GLUCOSE | Routin | 02/25/2018 | | Results for this | | | e | 9:46 PM | | procedure are in the | | | | PDT | | results section. | + +--------+ + + + | POCT GLUCOSE | Routin | 02/25/2018 | | Results for this | | | e | 8:24 PM | | procedure are in the | | | | PDT | | results section. | + +--------+ + + + | POCT GLUCOSE | Routin | 02/25/2018 | | Results for this | | | e | 5:22 PM | | procedure are in the | | | | PDT | | results section. | + +--------+ + + + | POCT GLUCOSE | Routin | 02/25/2018 | | Results for this | | | e | 4:55 PM | | procedure are in the | | | | PDT | | results section. | + +--------+ + + + | POCT GLUCOSE | Routin | 02/25/2018 | | Results for this | | | e | 11:27 AM | | procedure are in the | | | | PDT | | results section. | + +--------+ + + + | CBC W/AUTO DIFF | MICHAELA | 02/25/2018 | | Results for this | | (REFLEX TO MANUAL) | | 8:35 AM | | procedure are in the | | | | PDT | | results section. | + +--------+ + + + | VANCOMYCIN, TROUGH | MICHAELA | 02/25/2018 | | Results for this | | | | 8:35 AM | | procedure are in the | | | | PDT | | results section. | + +--------+ + + + | BASIC METABOLIC | MICHAELA | 02/25/2018 | | Results for this | | PANEL | | 8:35 AM | | procedure are in the | | | | PDT | | results section. | + +--------+ + + + | POCT GLUCOSE | Routin | 02/25/2018 | | Results for this | | | e | 5:24 AM | | procedure are in the | | | | PDT | | results section. | + +--------+ + + + | POCT GLUCOSE | Routin | 02/24/2018 | | Results for this | | | e | 9:01 PM | | procedure are in the | | | | PDT | | results section. | + +--------+ + + + | POCT GLUCOSE | Routin | 02/24/2018 | | Results for this | | | e | 4:09 PM | | procedure are in the | | | | PDT | | results section. | + +--------+ + + + | US TRANS OXY TENSION | Routin | 02/24/2018 | | Results for this | | MEASUREMENT/ LASER | e | 11:51 AM | | procedure are in the | | DOPPLER LIMITED | | PDT | | results section. | + +--------+ + + + | POCT GLUCOSE | Routin | 02/24/2018 | | Results for this | | | e | 11:20 AM | | procedure are in the | | | | PDT | | results section. | + +--------+ + + + | CASE REQUEST | Routin | 02/24/2018 | | | | OPERATING ROOM | e | 10:04 AM | | | | | | PDT | | | + +--------+ + + + | POCT GLUCOSE | Routin | 02/24/2018 | | Results for this | | | e | 5:43 AM | | procedure are in the | | | | PDT | | results section. | + +--------+ + + + | BASIC METABOLIC | Routin | 02/24/2018 | | Results for this | | PANEL | e | 4:18 AM | | procedure are in the | | | | PDT | | results section. | + +--------+ + + + | POCT GLUCOSE | Routin | 02/24/2018 | | Results for this | | | e | 12:28 AM | | procedure are in the | | | | PDT | | results section. | + +--------+ + + + | POC ARTERIAL CG8+ | Routin | 02/23/2018 | | Results for this | | | e | 8:55 PM | | procedure are in the | | | | PDT | | results section. | + +--------+ + + + | POCT GLUCOSE | Routin | 02/23/2018 | | Results for this | | | e | 6:46 PM | | procedure are in the | | | | PDT | | results section. | + +--------+ + + + | POCT GLUCOSE | Routin | 02/23/2018 | | Results for this | | | e | 4:22 PM | | procedure are in the | | | | PDT | | results section. | + +--------+ + + + | BYPASS GRAFT - | | 02/23/2018 | PAD | | | FEMORAL - TIBIAL | | 4:19 PM | | | | | | PDT | | | + +--------+ + + + | CBC W/AUTO DIFF | Add-On | 02/23/2018 | | Results for this | | (REFLEX TO MANUAL) | | 4:09 PM | | procedure are in the | | | | PDT | | results section. | + +--------+ + + + | TYPE AND SCREEN | STAT | 02/23/2018 | | Results for this | | | | 4:09 PM | | procedure are in the | | | | PDT | | results section. | + +--------+ + + + | POCT GLUCOSE | Routin | 02/23/2018 | | Results for this | | | e | 12:17 PM | | procedure are in the | | | | PDT | | results section. | + +--------+ + + + | YUSEF BRIGHT | MICHAELA | 02/23/2018 | | Results for this | | | | 8:21 AM | | procedure are in the | | | | PDT | | results section. | + +--------+ + + + | POCT GLUCOSE | Routin | 02/23/2018 | | Results for this | | | e | 5:33 AM | | procedure are in the | | | | PDT | | results section. | + +--------+ + + + | APTT | STAT | 02/23/2018 | | Results for this | | | | 12:25 AM | | procedure are in the | | | | PDT | | results section. | + +--------+ + + + | POCT GLUCOSE | Routin | 02/22/2018 | | Results for this | | | e | 9:39 PM | | procedure are in the | | | | PDT | | results section. | + +--------+ + + + | CASE REQUEST | Routin | 02/22/2018 | | | | OPERATING ROOM | e | 9:08 PM | | | | | | PDT | | | + +--------+ + + + | IR GUIDANCE VASCULAR | Routin | 02/22/2018 | | Results for this | | ACCESS US | e | 8:59 PM | | procedure are in the | | | | PDT | | results section. | + +--------+ + + + | IR ANGIOPLASTY | Routin | 02/22/2018 | | Results for this | | TIBIOPERONEAL | e | 8:55 PM | | procedure are in the | | ADDITIONAL VESSEL | | PDT | | results section. | + +--------+ + + + | IR ANGIOPLASTY | Routin | 02/22/2018 | | Results for this | | TIBIOPERONEAL | e | 8:55 PM | | procedure are in the | | | | PDT | | results section. | + +--------+ + + + | IR ANGIOGRAM | Routin | 02/22/2018 | | Results for this | | EXTREMITY RIGHT | e | 8:55 PM | | procedure are in the | | | | PDT | | results section. | + +--------+ + + + | IR AORTAGRAM | Routin | 02/22/2018 | | Results for this | | ABDOMINAL | e | 8:55 PM | | procedure are in the | | SERIALOGRAM | | PDT | | results section. | + +--------+ + + + | POC ACT, ARTERIAL | Routin | 02/22/2018 | | Results for this | | | e | 8:00 PM | | procedure are in the | | | | PDT | | results section. | + +--------+ + + + | POCT GLUCOSE | Routin | 02/22/2018 | | Results for this | | | e | 5:00 PM | | procedure are in the | | | | PDT | | results section. | + +--------+ + + + | POCT GLUCOSE | Routin | 02/22/2018 | | Results for this | | | e | 3:16 PM | | procedure are in the | | | | PDT | | results section. | + +--------+ + + + | POCT GLUCOSE | Routin | 02/22/2018 | | Results for this | | | e | 1:14 PM | | procedure are in the | | | | PDT | | results section. | + +--------+ + + + | US GREATER SAPHENOUS | Routin | 02/22/2018 | | Results for this | | VEING MAPPING | e | 1:12 PM | | procedure are in the | | BILATERAL | | PDT | | results section. | + +--------+ + + + | POCT GLUCOSE | Routin | 02/22/2018 | | Results for this | | | e | 11:40 AM | | procedure are in the | | | | PDT | | results section. | + +--------+ + + + | APTT | Timed | 02/22/2018 | | Results for this | | | | 11:20 AM | | procedure are in the | | | | PDT | | results section. | + +--------+ + + + | US ARMINDA RESTING | Routin | 02/22/2018 | | Results for this | | | e | 7:55 AM | | procedure are in the | | | | PDT | | results section. | + +--------+ + + + | US LOWER EXTREMITY | Routin | 02/22/2018 | | Results for this | | ARTERIAL RIGHT | e | 7:55 AM | | procedure are in the | | | | PDT | | results section. | + +--------+ + + + | URINE MICROSCOPIC | Timed | 02/22/2018 | | Results for this | | ONLY | | 4:16 AM | | procedure are in the | | | | PDT | | results section. | + +--------+ + + + | URINALYSIS (REFLEX | Timed | 02/22/2018 | | Results for this | | TO MICRO) | | 4:16 AM | | procedure are in the | | | | PDT | | results section. | + +--------+ + + + | URINE CULTURE | Timed | 02/22/2018 | | Results for this | | | | 4:16 AM | | procedure are in the | | | | PDT | | results section. | + +--------+ + + + | MRSA BY PCR | Timed | 02/22/2018 | | Results for this | | | | 4:06 AM | | procedure are in the | | | | PDT | | results section. | + +--------+ + + + | POCT GLUCOSE | Routin | 02/22/2018 | | Results for this | | | e | 4:06 AM | | procedure are in the | | | | PDT | | results section. | + +--------+ + + + | [facility] | MICHAELA | 02/22/2018 | | Results for this | | ACID | | 3:30 AM | | procedure are in the | | | | PDT | | results section. | + +--------+ + + + | APTT | Timed | 02/22/2018 | | Results for this | | | | 3:30 AM | | procedure are in the | | | | PDT | | results section. | + +--------+ + + + | PROTIME-INR | Routin | 02/22/2018 | | Results for this | | | e | 3:30 AM | | procedure are in the | | | | PDT | | results section. | + +--------+ + + + | CBC W/AUTO DIFF | Routin | 02/22/2018 | | Results for this | | (REFLEX TO MANUAL) | e - AM | 3:30 AM | | procedure are in the | | | | PDT | | results section. | + +--------+ + + + | MAGNESIUM | Routin | 02/22/2018 | | Results for this | | | e - AM | 3:30 AM | | procedure are in the | | | | PDT | | results section. | + +--------+ + + + | HEMOGLOBIN A1C | Routin | 02/22/2018 | | Results for this | | | e - AM | 3:30 AM | | procedure are in the | | | | PDT | | results section. | + +--------+ + + + | BILIRUBIN, DIRECT | Routin | 02/22/2018 | | Results for this | | | e - AM | 3:30 AM | | procedure are in the | | | | PDT | | results section. | + +--------+ + + + | COMPREHENSIVE | Routin | 02/22/2018 | | Results for this | | METABOLIC PANEL | e - AM | 3:30 AM | | procedure are in the | | | | PDT | | results section. | + +--------+ + + + | BLOOD CULTURE, SET 2 | Timed | 02/21/2018 | | Results for this | | | | 9:12 PM | | procedure are in the | | | | PDT | | results section. | + +--------+ + + + | [facility] | STAT | 02/21/2018 | | Results for this | | ACID | | 9:00 PM | | procedure are in the | | | | PDT | | results section. | + +--------+ + + + | [facility] CARD PANEL W/O | STAT | 02/21/2018 | | Results for this | | TRP (ED ONLY) | | 9:00 PM | | procedure are in the | | | | PDT | | results section. | + +--------+ + + + | BLOOD CULTURE, SET 1 | Timed | 02/21/2018 | | Results for this | | | | 9:00 PM | | procedure are in the | | | | PDT | | results section. | + +--------+ + + + | CRITICAL CARE | Routin | 02/21/2018 | | Results for this | | | e | 8:25 PM | | procedure are in the | | | | PDT | | results section. | + +--------+ + + + in this encounter Results POCT glucose (03/01/2018 11:21 AM) + + + + + | Component | Value | Ref Range | Performed At | + + + + + | GLUCOSE,POC SCREEN | 196 (H)Comment: Testing | 65 - 99 mg/dL | [facility] | | | performed at [facility];[address] | | | | | [address];[place] | | | | | [address] | | | + + + + + + + + + + | Performing | Address | City/State/Zipcode | Phone Number | | Organization | | | | + + + + + | [facility] | [address] | [place] [address] | | + + + + + POCT glucose (03/01/2018 5:26 AM) + + + + + | Component | Value | Ref Range | Performed At | + + + + + | GLUCOSE,POC SCREEN | 147 (H)Comment: Testing | 65 - 99 mg/dL | [facility] | | | performed at [facility];[address] | | | | | [address];[place], [place] | | | | | [address] | | | + + + + + + + + + + | Performing | Address | City/State/Zipcode | Phone Number | | Organization | | | | + + + + + | [facility] | [address] | [place] [address] | | + + + + + CBC w/auto diff (reflex to manual) (03/01/2018 5:26 AM) + + + + + | Component | Value | Ref Range | Performed At | + + + + + | WBC | 7.87 | 3.80 - 11.00 K/uL | [facility] | | | | | LABORATORY | + + + + + | RBC | 3.78 (L) | 4.20 - 5.70 M/uL | [facility] | | | | | LABORATORY | + + + + + | HGB | 11.4 (L) | 13.2 - 17.0 g/dL | [facility] | | | | | LABORATORY | + + + + + | HCT | 33.3 (L) | 39.0 - 50.0 % | [facility] | | | | | LABORATORY | + + + + + | MCV | 88.0 | 80.0 - 100.0 fl | [facility] | | | | | LABORATORY | + + + + + | MCH | 30.2 | 27.0 - 34.0 pg | [facility] | | | | | LABORATORY | + + + + + | MCHC | 34.4 | 32.0 - 35.5 g/dL | [facility] | | | | | LABORATORY | + + + + + | RDW SD | 39.8 | 37 - 53 fl | [facility] | | | | | LABORATORY | + + + + + | PLT | 350 | 150 - 400 K/uL | [facility] | | | | | LABORATORY | + + + + + | MPV | 7.5 | fl | [facility] | | | | | LABORATORY | + + + + + | DIFF TYPE | AUTOMATED | | [facility] | | | | | LABORATORY | + + + + + | NEUTROPHILS | 78.90 | % | [facility] | | | | | LABORATORY | + + + + + | LYMPHOCYTES | 13.42 | % | [facility] | | | | | LABORATORY | + + + + + | MONOCYTES | 6.02 | % | [facility] | | | | | LABORATORY | + + + + + | EOSINOPHILS | 0.77 | % | [facility] | | | | | LABORATORY | + + + + + | BASOPHILS | 0.89 | % | [facility] | | | | | LABORATORY | + + + + + | NEUTROPHILS ABS | 6.21 | 1.90 - 7.40 K/uL | [facility] | | | | | LABORATORY | + + + + + | LYMPHOCYTES ABS | 1.06 | 1.00 - 3.90 K/uL | [facility] | | | | | LABORATORY | + + + + + | MONOCYTES ABS | 0.47 | 0.00 - 0.80 K/uL | [facility] | | | | | LABORATORY | + + + + + | EOSINOPHILS ABS | 0.06 | 0.00 - 0.50 K/uL | [facility] | | | | | LABORATORY | + + + + + | BASOPHILS ABS | 0.07Comment: Testing | 0.00 - 0.10 K/uL | [facility] | | | performed at [facility], [address] | | LABORATORY | | | [address], | | | | | [place] [address] | | | + + + + + + + | Specimen | + + | Blood | + + + + + + + | Performing | Address | City/State/Zipcode | Phone Number | | Organization | | | | + + + + + | [facility] | [address] | [place] [address] | [phone] | | LABORATORY | [address] | | | + + + + + Basic metabolic panel (03/01/2018 5:26 AM) + + + + + | Component | Value | Ref Range | Performed At | + + + + + | SODIUM | 141 | 135 - 145 mmol/L | [facility] | | | | | LABORATORY | + + + + + | POTASSIUM | 3.9 | 3.5 - 4.9 mmol/L | [facility] | | | | | LABORATORY | + + + + + | CHLORIDE | 106 | 99 - 109 mmol/L | [facility] | | | | | LABORATORY | + + + + + | CO2 | 28 | 23 - 32 mmol/L | [facility] | | | | | LABORATORY | + + + + + | ANION GAP AGAP | 11 | 5 - 20 mmol/L | [facility] | | | | | LABORATORY | + + + + + | GLUCOSE | 146 (H) | 65 - 99 mg/dL | [facility] | | | | | LABORATORY | + + + + + | BUN | 12 | 8 - 25 mg/dL | [facility] | | | | | LABORATORY | + + + + + | CREATININE | 0.8 | 0.70 - 1.30 mg/dL | [facility] | | | | | LABORATORY | + + + + + | BUN/CREAT | 15 | | [facility] | | | | | LABORATORY | + + + + + | CALCIUM | 8.8 | 8.5 - 10.5 mg/dL | [facility] | | | | | LABORATORY | + + + + + | EGFR | >60Comment: GFR <60: | >60 mL/min/1.73m2 | [facility] | | | CHRONIC KIDNEY DISEASE, | | LABORATORY | | | IF FOUND OVER A 3 MONTH | | | | | PERIOD.GFR <15: KIDNEY | | | | | FAILURE.FOR | | | | | AMERICANS, MULTIPLY THE | | | | | CALCULATED GFR BY | | | | | 1.210.This eGFR is | | | | | calculated using the | | | | | MDRD IDMS traceable | | | | | equation.Testing | | | | | performed at [facility], [address] | | | | [facility], | | | | | [place] [address] | | | + + + + + + + | Specimen | + + | Blood | + + + + + + + | Performing | Address | City/State/Zipcode | Phone Number | | Organization | | | | + + + + + | [facility] | [address] | [place] [address] | [phone] | | LABORATORY | [address] | | | + + + + + POCT glucose (02/28/2018 9:04 PM) + + + + + | Component | Value | Ref Range | Performed At | + + + + + | GLUCOSE,POC SCREEN | 253 (H)Comment: Testing | 65 - 99 mg/dL | [facility] | | | performed at [facility];[address] | | | | | [address];[place], [place] | | | | | [address] | | | + + + + + + + + + + | Performing | Address | City/State/Zipcode | Phone Number | | Organization | | | | + + + + + | [facility] | [address] | [place] [address] | | + + + + + POCT glucose (02/28/2018 5:08 PM) + + + + + | Component | Value | Ref Range | Performed At | + + + + + | GLUCOSE,POC SCREEN | 223 (H)Comment: Testing | 65 - 99 mg/dL | [facility] | | | performed at [facility];[address] | | | | | [address];[place] | | | | | [address] | | | + + + + + + + + + + | Performing | Address | City/State/Zipcode | Phone Number | | Organization | | | | + + + + + | [facility] | [address] | [place] [address] | | + + + + + POCT glucose (02/28/2018 12:01 PM) + + + + + | Component | Value | Ref Range | Performed At | + + + + + | GLUCOSE,POC SCREEN | 186 (H)Comment: Testing | 65 - 99 mg/dL | [facility] | | | performed at [facility];[address] | | | | | [address];[place] | | | | | [address] | | | + + + + + + + + + + | Performing | Address | City/State/Zipcode | Phone Number | | Organization | | | | + + + + + | [facility] | [address] | [place] [address] | | + + + + + CBC w/auto diff (reflex to manual) (02/28/2018 5:11 AM) + + + + + | Component | Value | Ref Range | Performed At | + + + + + | WBC | 7.54 | 3.80 - 11.00 K/uL | [facility] | | | | | LABORATORY | + + + + + | RBC | 3.66 (L) | 4.20 - 5.70 M/uL | [facility] | | | | | LABORATORY | + + + + + | HGB | 11.2 (L) | 13.2 - 17.0 g/dL | [facility] | | | | | LABORATORY | + + + + + | HCT | 32.3 (L) | 39.0 - 50.0 % | [facility] | | | | | LABORATORY | + + + + + | MCV | 88.3 | 80.0 - 100.0 fl | [facility] | | | | | LABORATORY | + + + + + | MCH | 30.5 | 27.0 - 34.0 pg | [facility] | | | | | LABORATORY | + + + + + | MCHC | 34.6 | 32.0 - 35.5 g/dL | [facility] | | | | | LABORATORY | + + + + + | RDW SD | 40.7 | 37 - 53 fl | [facility] | | | | | LABORATORY | + + + + + | PLT | 321 | 150 - 400 K/uL | [facility] | | | | | LABORATORY | + + + + + | MPV | 7.6 | fl | [facility] | | | | | LABORATORY | + + + + + | DIFF TYPE | AUTOMATED | | [facility] | | | | | LABORATORY | + + + + + | NEUTROPHILS | 82.31 | % | [facility] | | | | | LABORATORY | + + + + + | LYMPHOCYTES | 10.43 | % | [facility] | | | | | LABORATORY | + + + + + | MONOCYTES | 6.16 | % | [facility] | | | | | LABORATORY | + + + + + | EOSINOPHILS | 0.44 | % | [facility] | | | | | LABORATORY | + + + + + | BASOPHILS | 0.66 | % | [facility] | | | | | LABORATORY | + + + + + | NEUTROPHILS ABS | 6.21 | 1.90 - 7.40 K/uL | [facility] | | | | | LABORATORY | + + + + + | LYMPHOCYTES ABS | 0.79 (L) | 1.00 - 3.90 K/uL | [facility] | | | | | LABORATORY | + + + + + | MONOCYTES ABS | 0.46 | 0.00 - 0.80 K/uL | [facility] | | | | | LABORATORY | + + + + + | EOSINOPHILS ABS | 0.03 | 0.00 - 0.50 K/uL | [facility] | | | | | LABORATORY | + + + + + | BASOPHILS ABS | 0.05Comment: Testing | 0.00 - 0.10 K/uL | [facility] | | | performed at [facility], [address] | | LABORATORY | | | [address], | | | | | [place] [address] | | | + + + + + + + | Specimen | + + | Blood | + + + + + + + | Performing | Address | City/State/Zipcode | Phone Number | | Organization | | | | + + + + + | [facility] | [address] | [place] [address] | [phone] | | LABORATORY | [address] | | | + + + + + Basic metabolic panel (02/28/2018 5:11 AM) + + + + + | Component | Value | Ref Range | Performed At | + + + + + | SODIUM | 142 | 135 - 145 mmol/L | [facility] | | | | | LABORATORY | + + + + + | POTASSIUM | 4.1 | 3.5 - 4.9 mmol/L | [facility] | | | | | LABORATORY | + + + + + | CHLORIDE | 107 | 99 - 109 mmol/L | [facility] | | | | | LABORATORY | + + + + + | CO2 | 28 | 23 - 32 mmol/L | [facility] | | | | | LABORATORY | + + + + + | ANION GAP AGAP | 11 | 5 - 20 mmol/L | [facility] | | | | | LABORATORY | + + + + + | GLUCOSE | 199 (H) | 65 - 99 mg/dL | [facility] | | | | | LABORATORY | + + + + + | BUN | 12 | 8 - 25 mg/dL | [facility] | | | | | LABORATORY | + + + + + | CREATININE | 0.8 | 0.70 - 1.30 mg/dL | [facility] | | | | | LABORATORY | + + + + + | BUN/CREAT | 15 | | [facility] | | | | | LABORATORY | + + + + + | CALCIUM | 8.4 (L) | 8.5 - 10.5 mg/dL | [facility] | | | | | LABORATORY | + + + + + | EGFR | >60Comment: GFR <60: | >60 mL/min/1.73m2 | [facility] | | | CHRONIC KIDNEY DISEASE, | | LABORATORY | | | IF FOUND OVER A 3 MONTH | | | | | PERIOD.GFR <15: KIDNEY | | | | | FAILURE.FOR | | | | | AMERICANS, MULTIPLY THE | | | | | CALCULATED GFR BY | | | | | 1.210.This eGFR is | | | | | calculated using the | | | | | MDRD IDFL traceable | | | | | equation.Testing | | | | | performed at [facility], [address] | | | | [facility], | | | | | [place] [address] | | | + + + + + + + | Specimen | + + | Blood | + + + + + + + | Performing | Address | City/State/Zipcode | Phone Number | | Organization | | | | + + + + + | [facility] | [address] | [place] [address] | [phone] | | LABORATORY | [address] | | | + + + + + POCT glucose (02/28/2018 5:05 AM) + + + + + | Component | Value | Ref Range | Performed At | + + + + + | GLUCOSE,POC SCREEN | 178 (H)Comment: Testing | 65 - 99 mg/dL | [facility] | | | performed at [facility];[address] | | | | | [address];[place] | | | | | [address] | | | + + + + + + + + + + | Performing | Address | City/State/Zipcode | Phone Number | | Organization | | | | + + + + + | [facility] | [address] | [place] [address] | | + + + + + Pathology histology - tissue (02/28/2018) + + | Specimen | + + | Tissue | + + + + + | Narrative | Performed At | + + + | SPECIMEN(S): A Rt. TRANSMETATARSAL AMPUTATION SPECIMEN SOURCE: | [facility] | | A. Rt. TRANSMETATARSAL AMPUTATION CLINICAL HISTORY: 02/25/2018 at | PATHOLOGY | | 1929 H. No clinical history given. FINAL PATHOLOGIC DIAGNOSIS: | | | Right transmetatarsal amputation: - Previous amputation | | | of the second digit with sutures in place at the amputation site | | | - Additional skin changes as described below | | | - Partial necrosis of the subcutaneous tissue and severe acute | | | inflammation with pockets of abscess formation - No | | | definitive osteomyelitis identified in the sampled bone | | | - Acute inflammation extends to the soft tissue resection margin | | | GROSS DESCRIPTION: One specimen is received in one container, labeled | | | with the patient's name: A. Received in formalin designated | | | "right transmetatarsal amputation ", consists of 10.4 x 10.0 x 4.1 cm | | | distal right foot. Left first, third, fourth, and fifth digits are | | | present and display a yellow thickened nail. The second digit has | | | been previously resected. At the resection site displays a 1.8 x 0.7 | | | cm incision closed by black sutures. The third digit and dorsal | | | surface have a violaceous discoloration with moderate skin slippage. | | | . This violaceous skin discoloration extends to the dorsal soft tissue | | | resection margin. The resection margin is inked black. Viability of | | | the resection margin cannot be grossly determined. Serially | | | sectioning through the resection site and adjacent soft tissue reveals | | | a dusky red softened tissue with dilated vasculature. The underlying | | | bone has a deep red discoloration. [employer] sections are | | | submitted in 3 cassettes. The tissue is placed into decal prior to | | | processing. Cassette summary: (A1) skin discoloration noted to | | | soft tissue resection margin; (A2) bone underlying the incision; (A3) | | | incision and area of discoloration. FM The gross description | | | section of this report has been prepared using a voice recognition | | | system. The report was reviewed for accuracy, however, sound-alike | | | word errors, addition and/or deletions may occur. If there is any | | | question about this report please contact the originating pathologist. | | | MICROSCOPIC EXAMINATION: Histologic sections of all submitted | | | blocks are examined by light microscopy. These findings, together | | | with the gross examination, support the pathologic diagnosis. | | | PERFORMING LABORATORY: Professional interpretation and technical | | | preparation was performed by [employer], [facility] | | | [address] [address] (Medical | | | Director: Ha Couch M.D.; [facility]#: [id number]). | | | Diagnostician: Ha Couch MD Pathologist Electronically | | | Signed 03/01/2018 | | + + + + +---------+ + + | Performing | Address | City/State/Zipcode | Phone Number | | Organization | | | | + +---------+ + + | [facility] | | | | + +---------+ + + POCT glucose (02/27/2018 8:29 PM) + + + + + | Component | Value | Ref Range | Performed At | + + + + + | GLUCOSE,POC SCREEN | 262 (H)Comment: Testing | 65 - 99 mg/dL | [facility] | | | performed at [facility];[address] | | | | | [address] [facility];[place], [place] | | | | | [address] | | | + + + + + + + + + + | Performing | Address | City/State/Zipcode | Phone Number | | Organization | | | | + + + + + | [facility] | [address] | [place] [address] | | + + + + + POCT glucose (02/27/2018 4:19 PM) + + + + + | Component | Value | Ref Range | Performed At | + + + + + | GLUCOSE,POC SCREEN | 189 (H)Comment: Testing | 65 - 99 mg/dL | [facility] | | | performed at [facility];[address] | | | | | [address];[place] | | | | | [address] | | | + + + + + + + + + + | Performing | Address | City/State/Zipcode | Phone Number | | Organization | | | | + + + + + | [facility] | [address] | [place] [address] | | + + + + + POCT glucose (02/27/2018 11:02 AM) + + + + + | Component | Value | Ref Range | Performed At | + + + + + | GLUCOSE,POC SCREEN | 200 (H)Comment: Testing | 65 - 99 mg/dL | [facility] | | | performed at [facility];[address] | | | | | [address];[place] | | | | | [address] | | | + + + + + + + + + + | Performing | Address | City/State/Zipcode | Phone Number | | Organization | | | | + + + + + | [facility] | [address] | [place] [address] | | + + + + + POCT glucose (02/27/2018 5:17 AM) + + + + + | Component | Value | Ref Range | Performed At | + + + + + | GLUCOSE,POC SCREEN | 159 (H)Comment: Testing | 65 - 99 mg/dL | [facility] | | | performed at [facility];[address] | | | | | [address];[place] | | | | | [address] | | | + + + + + + + + + + | Performing | Address | City/State/Zipcode | Phone Number | | Organization | | | | + + + + + | [facility] | [address] | [place] [address] | | + + + + + CBC w/auto diff (reflex to manual) (02/27/2018 4:53 AM) + + + + + | Component | Value | Ref Range | Performed At | + + + + + | WBC | 9.41 | 3.80 - 11.00 K/uL | [facility] | | | | | LABORATORY | + + + + + | RBC | 3.53 (L) | 4.20 - 5.70 M/uL | [facility] | | | | | LABORATORY | + + + + + | HGB | 11.0 (L) | 13.2 - 17.0 g/dL | [facility] | | | | | LABORATORY | + + + + + | HCT | 31.4 (L) | 39.0 - 50.0 % | [facility] | | | | | LABORATORY | + + + + + | MCV | 89.1 | 80.0 - 100.0 fl | [facility] | | | | | LABORATORY | + + + + + | MCH | 31.2 | 27.0 - 34.0 pg | [facility] | | | | | LABORATORY | + + + + + | MCHC | 35.1 | 32.0 - 35.5 g/dL | [facility] | | | | | LABORATORY | + + + + + | RDW SD | 40.7 | 37 - 53 fl | [facility] | | | | | LABORATORY | + + + + + | PLT | 288 | 150 - 400 K/uL | [facility] | | | | | LABORATORY | + + + + + | MPV | 7.6 | fl | [facility] | | | | | LABORATORY | + + + + + | DIFF TYPE | AUTOMATED | | [facility] | | | | | LABORATORY | + + + + + | NEUTROPHILS | 83.86 | % | [facility] | | | | | LABORATORY | + + + + + | LYMPHOCYTES | 9.38 | % | [facility] | | | | | LABORATORY | + + + + + | MONOCYTES | 6.24 | % | [facility] | | | | | LABORATORY | + + + + + | EOSINOPHILS | 0.15 | % | [facility] | | | | | LABORATORY | + + + + + | BASOPHILS | 0.37 | % | [facility] | | | | | LABORATORY | + + + + + | NEUTROPHILS ABS | 7.89 (H) | 1.90 - 7.40 K/uL | [facility] | | | | | LABORATORY | + + + + + | LYMPHOCYTES ABS | 0.88 (L) | 1.00 - 3.90 K/uL | [facility] | | | | | LABORATORY | + + + + + | MONOCYTES ABS | 0.59 | 0.00 - 0.80 K/uL | [facility] | | | | | LABORATORY | + + + + + | EOSINOPHILS ABS | 0.01 | 0.00 - 0.50 K/uL | [facility] | | | | | LABORATORY | + + + + + | BASOPHILS ABS | 0.04Comment: Testing | 0.00 - 0.10 K/uL | [facility] | | | performed at [facility], [address] | | LABORATORY | | | [address], | | | | | [place] [address] | | | + + + + + + + | Specimen | + + | Blood | + + + + + + + | Performing | Address | City/State/Zipcode | Phone Number | | Organization | | | | + + + + + | [facility] | [address] | [place] [address] | [phone] | | LABORATORY | [address] | | | + + + + + Basic metabolic panel (02/27/2018 4:53 AM) + + + + + | Component | Value | Ref Range | Performed At | + + + + + | SODIUM | 144 | 135 - 145 mmol/L | [facility] | | | | | LABORATORY | + + + + + | POTASSIUM | 4.0 | 3.5 - 4.9 mmol/L | [facility] | | | | | LABORATORY | + + + + + | CHLORIDE | 109 | 99 - 109 mmol/L | [facility] | | | | | LABORATORY | + + + + + | CO2 | 26 | 23 - 32 mmol/L | [facility] | | | | | [facility] | + + + + + | ANION GAP AGAP | 13 | 5 - 20 mmol/L | [facility] | | | | | [facility] | + + + + + | GLUCOSE | 179 (H) | 65 - 99 mg/dL | [facility] | | | | | LAB[facility] | + + + + + | BUN | 14 | 8 - 25 mg/dL | [facility] | | | | | [facility] | + + + + + | CREATININE | 0.8 | 0.70 - 1.30 mg/dL | [facility] | | | | | LAB[facility] | + + + + + | BUN/CREAT | 18 | | [facility] | | | | | LAB[facility] | + + + + + | CALCIUM | 8.3 (L) | 8.5 - 10.5 mg/dL | [facility] | | | | | LAB[facility] | + + + + + | EGFR | >60Comment: GFR <60: | >60 mL/min/1.73m2 | [facility] | | | CHRONIC KIDNEY DISEASE, | | LABORATORY | | | IF FOUND OVER A 3 MONTH | | | | | PERIOD.GFR <15: KIDNEY | | | | | FAILURE.FOR | | | | | AMERICANS, MULTIPLY THE | | | | | CALCULATED GFR BY | | | | | 1.210.This eGFR is | | | | | calculated using the | | | | | MDRD IDMS traceable | | | | | equation.Testing | | | | | performed at [facility], [address] | | | | [facility], | | | | | [place] [address] | | | + + + + + + + | Specimen | + + | Blood | + + + + + + + | Performing | Address | City/State/Zipcode | Phone Number | | Organization | | | | + + + + + | [facility] | [address] [place] [address] | [place] [address] | [phone] | | LABORATORY | [address] | | | + + + + + POCT glucose (02/26/2018 9:06 PM) + + + + + | Component | Value | Ref Range | Performed At | + + + + + | GLUCOSE,POC SCREEN | 213 (H)Comment: Testing | 65 - 99 mg/dL | [facility] | | | performed at [facility] [place];[address] | | | | | [address];[place] | | | | | [address] | | | + + + + + + + + + + | Performing | Address | City/State/Zipcode | Phone Number | | Organization | | | | + + + + + | [facility] | [address] | [place] [address] | | + + + + + POCT glucose (02/26/2018 5:00 PM) + + + + + | Component | Value | Ref Range | Performed At | + + + + + | GLUCOSE,POC SCREEN | 229 (H)Comment: Testing | 65 - 99 mg/dL | [facility] | | | performed at [facility] [place];[address];[place] | | | | | [address] | | | + + + + + + + + + + | Performing | Address | City/State/Zipcode | Phone Number | | Organization | | | | + + + + + | [facility] | [address] | [place] [address] | | + + + + + POCT glucose (02/26/2018 11:04 AM) + + + + + | Component | Value | Ref Range | Performed At | + + + + + | GLUCOSE,POC SCREEN | 292 (H)Comment: Testing | 65 - 99 mg/dL | [facility] | | | [facility] [facility];[address] | | | [address];[place] | | | | | [address] | | | + + + + + + + + + + | Performing | Address | City/State/Zipcode | Phone Number | | Organization | | | | + + + + + | [facility] | [address] | [place] [address] | | + + + + + POCT glucose (02/26/2018 5:18 AM) + + + + + | Component | Value | Ref Range | Performed At | + + + + + | GLUCOSE,POC SCREEN | 216 (H)Comment: Testing | 65 - 99 mg/dL | [facility] | | | performed at [facility];[address] | | | | | [address];[place] | | | | | [address] | | | + + + + + + + + + + | Performing | Address | City/State/Zipcode | Phone Number | | Organization | | | | + + + + + | [facility] | [address] | [place] [address] | | + + + + + CBC w/auto diff (reflex to manual) (02/26/2018 4:54 AM) + + + + + | Component | Value | Ref Range | Performed At | + + + + + | WBC | 11.23 (H) | 3.80 - 11.00 K/uL | [facility] | | | | | LABORATORY | + + + + + | RBC | 3.84 (L) | 4.20 - 5.70 M/uL | [facility] | | | | | LABORATORY | + + + + + | HGB | 12.0 (L) | 13.2 - 17.0 g/dL | [facility] | | | | | LABORATORY | + + + + + | HCT | 34.4 (L) | 39.0 - 50.0 % | [facility] | | | | | LABORATORY | + + + + + | MCV | 89.6 | 80.0 - 100.0 fl | [facility] | | | | | LABORATORY | + + + + + | MCH | 31.1 | 27.0 - 34.0 pg | [facility] | | | | | LABORATORY | + + + + + | MCHC | 34.7 | 32.0 - 35.5 g/dL | [facility] | | | | | LABORATORY | + + + + + | RDW SD | 41.1 | 37 - 53 fl | [facility] | | | | | LABORATORY | + + + + + | PLT | 269 | 150 - 400 K/uL | [facility] | | | | | LABORATORY | + + + + + | MPV | 7.8 | fl | [facility] | | | | | LABORATORY | + + + + + | DIFF TYPE | MANUAL | | [facility] | | | | | LAB[facility]AT[facility] | + + + + + | Neutrophils Manual | 91 | % | [facility] | | | | | LAB[facility] | + + + + + | Lymphocytes Manual | 6 | % | [facility] | | | | | LABORAT[facility] | + + + + + | Monocytes Manual | 3 | % | [facility] | | | | | LABORATORY | + + + + + | Neutrophils Absolute | 10.22 (H) | 1.90 - 7.40 K/uL | [facility] | | | | | LABORATORY | + + + + + | Lymphocytes Absolute | 0.67 (L) | 1.00 - 3.90 K/uL | [facility] | | | | | LABORATORY | + + + + + | Monocytes Absolute | 0.34 | 0.00 - 0.80 K/uL | [facility] | | | | | LAB[facility]AT[facility] | + + + + + | Platelet Estimate | ADEQUATE | | [facility] | | | | | LABORATORY | + + + + + | MORPHOLOGY | RBC AND PLT MORPHOLOGY | | [facility] | | | APPEAR NORMALComment: | | LABORATORY | | | Testing performed at | | | | | [facility], [address] | | | | | [place] | | | | | [address] | | | + + + + + + + | Specimen | + + | Blood | + + + + + + + | Performing | Address | City/State/Zipcode | Phone Number | | Organization | | | | + + + + + | [facility] | [address] | [place] [address] | [phone] | | LABORATORY | [address] | | | + + + + + Basic metabolic panel (02/26/2018 4:54 AM) + + + + + | Component | Value | Ref Range | Performed At | + + + + + | SODIUM | 141 | 135 - 145 mmol/L | [facility] | | | | | LABORATORY | + + + + + | POTASSIUM | 4.2 | 3.5 - 4.9 mmol/L | [facility] | | | | | LABORATORY | + + + + + | CHLORIDE | 106 | 99 - 109 mmol/L | [facility] | | | | | LAB[facility]AT[facility] | + + + + + | CO2 | 23 | 23 - 32 mmol/L | [facility] | | | | | LABORATORY | + + + + + | ANION GAP AGAP | 16 | 5 - 20 mmol/L | [facility] | | | | | LABORATORY | + + + + + | GLUCOSE | 218 (H) | 65 - 99 mg/dL | [facility] | | | | | LABORATORY | + + + + + | BUN | 16 | 8 - 25 mg/dL | [facility] | | | | | LABORATORY | + + + + + | CREATININE | 0.9 | 0.70 - 1.30 mg/dL | [facility] | | | | | LABORATORY | + + + + + | BUN/CREAT | 18 | | [facility] | | | | | LABORATORY | + + + + + | CALCIUM | 8.7 | 8.5 - 10.5 mg/dL | [facility] | | | | | LABORATORY | + + + + + | EGFR | >60Comment: GFR <60: | >60 mL/min/1.73m2 | [facility] | | | CHRONIC KIDNEY DISEASE, | | LABORATORY | | | IF FOUND OVER A 3 MONTH | | | | | PERIOD.GFR <15: KIDNEY | | | | | FAILURE.FOR | | | | | AMERICANS, MULTIPLY THE | | | | | CALCULATED GFR BY | | | | | 1.210.This eGFR is | | | | | calculated using the | | | | | MDRD IDMS traceable | | | | | equation.Testing | | | | | performed at [facility], [address] | | | | | [facility], | | | | | [place] [address] | | | + + + + + + + | Specimen | + + | Blood | + + + + + + + | Performing | Address | City/State/Zipcode | Phone Number | | Organization | | | | + + + + + | [facility] | [address] | [place] [address] | [phone] | | LABORATORY | [place] | | | + + + + + POCT glucose (02/25/2018 9:46 PM) + + + + + | Component | Value | Ref Range | Performed At | + + + + + | GLUCOSE,POC SCREEN | 190 (H)Comment: Testing | 65 - 99 mg/dL | [facility] | | | performed at [facility];[address] | | | | | [address];[place] | | | | | [address] | | | + + + + + + + + + + | Performing | Address | City/State/Zipcode | Phone Number | | Organization | | | | + + + + + | [facility] | [address] | [place] [address] | | + + + + + POCT glucose (02/25/2018 8:24 PM) + + + + + | Component | Value | Ref Range | Performed At | + + + + + | GLUCOSE,POC SCREEN | 207 (H)Comment: Testing | 65 - 99 mg/dL | [facility] | | | performed at [facility];[address] | | | | | [address];[place] | | | | | [address] | | | + + + + + + + + + + | Performing | Address | City/State/Zipcode | Phone Number | | Organization | | | | + + + + + | [facility] | [address] | [place] [address] | | + + + + + POCT glucose (02/25/2018 5:22 PM) + + + + + | Component | Value | Ref Range | Performed At | + + + + + | GLUCOSE,POC SCREEN | 195 (H)Comment: Testing | 65 - 99 mg/dL | [facility] | | | performed at [facility];[address] | | | | | [address];[place] | | | | | [address] | | | + + + + + + + + + + | Performing | Address | City/State/Zipcode | Phone Number | | Organization | | | | + + + + + | [facility] | [address] | [place] [address] | | + + + + + POCT glucose (02/25/2018 4:55 PM) + + + + + | Component | Value | Ref Range | Performed At | + + + + + | GLUCOSE,POC SCREEN | 176 (H)Comment: Testing | 65 - 99 mg/dL | [facility] | | | performed at [facility];[address] | | | | | [address];[place] | | | | | [address] | | | + + + + + + + + + + | Performing | Address | City/State/Zipcode | Phone Number | | Organization | | | | + + + + + | [facility] | [address] | [place] [address] | | + + + + + POCT glucose (02/25/2018 11:27 AM) + + + + + | Component | Value | Ref Range | Performed At | + + + + + | GLUCOSE,POC SCREEN | 203 (H)Comment: Testing | 65 - 99 mg/dL | [facility] | | | performed at [facility];[address] | | | | | [address];[place] | | | | | [address] | | | + + + + + + + + + + | Performing | Address | City/State/Zipcode | Phone Number | | Organization | | | | + + + + + | [facility] | [address] | [place] [address] | | + + + + + Vancomycin, trough (02/25/2018 8:35 AM) + + + + + | Component | Value | Ref Range | Performed At | + + + + + | VANCOMYCIN,TROUGH | 18.6Comment: 15 to 20 | 10 - 20 ug/mL | [facility] | | | ug/mL for meningitis, | | | | | osteomyelitis, | | | | | endocarditis, sepsis, or | | | | | healthcare associated | | | | | pneumonia, or an MODESTA | | | | | equal to or greater than | | | | | 1.0 ug/mLTesting | | | | | performed at [facility] | | | | | [address];[place], [place] | | | | | [address] | | | + + + + + + + + + + | Performing | Address | City/State/Zipcode | Phone Number | | Organization | | | | + + + + + | [facility] | [address] | [place] [address] | | + + + + + CBC w/auto diff (reflex to manual) (02/25/2018 8:35 AM) + + + + + | Component | Value | Ref Range | Performed At | + + + + + | WBC | 12.16 (H) | 3.80 - 11.00 K/uL | [facility] | + + + + + | RBC | 3.78 (L) | 4.20 - 5.70 M/uL | [facility] | + + + + + | HGB | 11.6 (L) | 13.2 - 17.0 g/dL | [facility] | + + + + + | HCT | 33.6 (L) | 39.0 - 50.0 % | [facility] | + + + + + | MCV | 88.8 | 80.0 - 100.0 fl | [facility] | + + + + + | MCH | 30.6 | 27.0 - 34.0 pg | [facility] | + + + + + | MCHC | 34.4 | 32.0 - 35.5 g/dL | [facility] | + + + + + | RDW SD | 40.7 | 37 - 53 fl | [facility] | + + + + + | PLT | 274 | 150 - 400 K/uL | [facility] | + + + + + | MPV | 7.2 | fl | [facility] | + + + + + | DIFF TYPE | AUTOMATED | | [facility] | + + + + + | NEUTROPHILS | 88.64 | % | [facility] | + + + + + | LYMPHOCYTES | 5.58 | % | [facility] | + + + + + | MONOCYTES | 5.26 | % | [facility] | + + + + + | EOSINOPHILS | 0.23 | % | [facility] | + + + + + | BASOPHILS | 0.29 | % | [facility] | + + + + + | NEUTROPHILS ABS | 10.78 (H) | 1.90 - 7.40 K/uL | [facility] | + + + + + | LYMPHOCYTES ABS | 0.68 (L) | 1.00 - 3.90 K/uL | [facility] | + + + + + | MONOCYTES ABS | 0.64 | 0.00 - 0.80 K/uL | [facility] | + + + + + | EOSINOPHILS ABS | 0.03 | 0.00 - 0.50 K/uL | [facility] | + + + + + | BASOPHILS ABS | 0.04 | 0.00 - 0.10 K/uL | [facility] | + + + + + | MORPHOLOGY | RBC AND PLT MORPHOLOGY | | [facility] | | | APPEAR NORMAL | | | + + + + + | Diff Comment | SLIDE SCANNED, AGREES | | [facility] | | | WITH AUTOMATED | | | | | RESULTS.Comment: Testing | | | | | performed at [facility];[address] | | | | | [address];[place] | | | | | [address] | | | + + + + + + + | Specimen | + + | Blood | + + + + + + + | Performing | Address | City/State/Zipcode | Phone Number | | Organization | | | | + + + + + | [facility] | [address] | [place] [address] | | + + + + + Basic metabolic panel (02/25/2018 8:35 AM) + + + + + | Component | Value | Ref Range | Performed At | + + + + + | SODIUM | 139 | 135 - 145 mmol/L | [facility] | + + + + + | POTASSIUM | 3.8 | 3.5 - 4.9 mmol/L | [facility] | + + + + + | CHLORIDE | 108 | 99 - 109 mmol/L | [facility] | + + + + + | CO2 | 25 | 23 - 32 mmol/L | [facility] | + + + + + | ANION GAP AGAP | 10 | 5 - 20 mmol/L | [facility] | + + + + + | GLUCOSE | 172 (H) | 65 - 99 mg/dL | [facility] | + + + + + | BUN | 12 | 8 - 25 mg/dL | [facility] | + + + + + | CREATININE | 0.81 | 0.70 - 1.30 mg/dL | [facility] | + + + + + | BUN/CREAT | 15 | | [facility] | + + + + + | CALCIUM | 7.9 (L) | 8.5 - 10.5 mg/dL | [facility] | + + + + + | EGFR | >60Comment: GFR <60: | >60 mL/min/1.73m2 | [facility] | | | CHRONIC KIDNEY DISEASE, | | | | | IF FOUND OVER A 3 MONTH | | | | | PERIOD.GFR <15: KIDNEY | | | | | FAILURE.FOR | | | | | AMERICANS, MULTIPLY THE | | | | | CALCULATED GFR BY | | | | | 1.210.This eGFR is | | | | | calculated using the | | | | | MDRD IDMS traceable | | | | | equation.Testing | | | | | performed at [facility] | | | | | [facility];[place], [place] | | | | | [address] | | | + + + + + + + | Specimen | + + | Blood | + + + + + + + | Performing | Address | City/State/Zipcode | Phone Number | | Organization | | | | + + + + + | [facility] | [address] | [place] [address] | | + + + + + POCT glucose (02/25/2018 5:24 AM) + + + + + | Component | Value | Ref Range | Performed At | + + + + + | GLUCOSE,POC SCREEN | 167 (H)Comment: Testing | 65 - 99 mg/dL | [facility] | | | performed at [facility];[address] | | | | | [address];[place] | | | | | [address] | | | + + + + + + + + + + | Performing | Address | City/State/Zipcode | Phone Number | | Organization | | | | + + + + + | [facility] | [address] | [place] [address] | | + + + + + POCT glucose (02/24/2018 9:01 PM) + + + + + | Component | Value | Ref Range | Performed At | + + + + + | GLUCOSE,POC SCREEN | 240 (H)Comment: Testing | 65 - 99 mg/dL | [facility] | | | performed at [facility];[address] | | | | | [address];[place] | | | | | [address] | | | + + + + + + + + + + | Performing | Address | City/State/Zipcode | Phone Number | | Organization | | | | + + + + + | [facility] | [address] | [place] [address] | | + + + + + POCT glucose (02/24/2018 4:09 PM) + + + + + | Component | Value | Ref Range | Performed At | + + + + + | GLUCOSE,POC SCREEN | 214 (H)Comment: Testing | 65 - 99 mg/dL | [facility] | | | performed at [facility];[address] | | | | | [address];[place] | | | | | [address] | | | + + + + + + + + + + | Performing | Address | City/State/Zipcode | Phone Number | | Organization | | | | + + + + + | [facility] | [address] | [place] [address] | | + + + + + US TCOM/ Laser doppler limited (02/24/2018 11:51 AM) + + + | Impressions | Performed At | + + + | 1. Skin perfusion pressures as noted in the findings. Reference | [facility] | | ranges: * In nondiabetic patients oxygen tension values below 40 | RADIOLOGY | | mmHg are considered ischemic. Oxygen tension values above 20 mm Hg are | | | required for adequate healing. * In diabetic patients oxygen | | | tension values below 50 mmHg are considered ischemic. Oxygen | | | tension values above 25 mm Hg are required for adequate healing. | | | | | + + + + + + | Narrative | Performed At | + + + | ARSENIO WALKER TRANS OXY TENSION MEASUREMENT/ LASER DOPPLER | [facility] | | LIMITED 02/24/2018 11:51 AM HISTORY: Peripheral arterial disease. | RADIOLOGY | | Right sided wound. Healing potential. TECHNIQUE: Ultrasound | | | oxygen tension measurement/laser Doppler. COMPARISON: None. | | | FINDINGS: The skin perfusion pressure in the medial right ankle | | | measures 49 mmHg. The skin perfusion pressure in the lateral | | | plantar right foot measures 38 mmHg. | | + + + + + | Procedure Note | + + | Claudio Soni Results In - 02/24/2018 1:17 PM PDT ARSENIO QUEZADA TRANS OXY TENSION | | MEASUREMENT/ LASER DOPPLER LIMITED02/24/2018 11:51 AMHISTORY:Peripheral arterial disease. | | Right sided wound. Healing potential.TECHNIQUE:Ultrasound oxygen tension | | measurement/laser Doppler.COMPARISON:None.FINDINGS:The skin perfusion pressure in the | | medial right ankle measures 49 mmHg.The skin perfusion pressure in the lateral plantar | | right foot measures 38 mmHg.IMPRESSION:1. Skin perfusion pressures as noted in the | | findings.Reference ranges:* In nondiabetic patients oxygen tension values below 40 | | mmHg are considered ischemic. Oxygen tension values above 20 mm Hg are required for | | adequate healing.* In diabetic patients oxygen tension values below 50 mmHg are | | considered ischemic. Oxygen tension values above 25 mm Hg are required for adequate | | healing. | |None. | | | |FINDINGS: | |The skin perfusion pressure in the medial right ankle measures 49 mmHg. | | | |The skin perfusion pressure in the lateral plantar right foot measures 38 mmHg. | | | |IMPRESSION: | |1. Skin perfusion pressures as noted in the findings. | | | |Reference ranges: | |* In nondiabetic patients oxygen tension values below 40 mmHg are considered ischemic. Ox ygen tension values above 20 mm Hg are required for adequate healing. | |* In diabetic patients oxygen tension values below 50 mmHg are considered ischemic. Oxyg en tension values above 25 mm Hg are required for adequate healing. | | | | | + + + + + + + | Performing | Address | City/State/Zipcode | Phone Number | | Organization | | | | + + + + + | [facility] | [address] | [place] [address] | | + + + + + POCT glucose (02/24/2018 11:20 AM) + + + + + | Component | Value | Ref Range | Performed At | + + + + + | GLUCOSE,POC SCREEN | 153 (H)Comment: Testing | 65 - 99 mg/dL | [facility] | | | performed at [facility];[address] | | | | | [address];[place] | | | | | [address] | | | + + + + + + + + + + | Performing | Address | City/State/Zipcode | Phone Number | | Organization | | | | + + + + + | [facility] | [address] | [place] [address] | | + + + + + POCT glucose (02/24/2018 5:43 AM) + + + + + | Component | Value | Ref Range | Performed At | + + + + + | GLUCOSE,POC SCREEN | 119 (H)Comment: Testing | 65 - 99 mg/dL | [facility] | | | performed at [facility];[address] | | | | | [address];[place] | | | | | [address] | | | + + + + + + + + + + | Performing | Address | City/State/Zipcode | Phone Number | | Organization | | | | + + + + + | [facility] | [address] | [place] [address] | | + + + + + Basic metabolic panel (02/24/2018 4:18 AM) + + + + + | Component | Value | Ref Range | Performed At | + + + + + | SODIUM | 139 | 135 - 145 mmol/L | [facility] | | | | | LABORATORY | + + + + + | POTASSIUM | 4.0 | 3.5 - 4.9 mmol/L | [facility] | | | | | LABORATORY | + + + + + | CHLORIDE | 106 | 99 - 109 mmol/L | [facility] | | | | | LABORATORY | + + + + + | CO2 | 22 (L) | 23 - 32 mmol/L | [facility] | | | | | LABORATORY | + + + + + | ANION GAP AGAP | 15 | 5 - 20 mmol/L | [facility] | | | | | LABORATORY | + + + + + | GLUCOSE | 123 (H) | 65 - 99 mg/dL | [facility] | | | | | LABORATORY | + + + + + | BUN | 14 | 8 - 25 mg/dL | [facility] | | | | | LABORATORY | + + + + + | CREATININE | 0.7 | 0.70 - 1.30 mg/dL | [facility] | | | | | LABORATORY | + + + + + | BUN/CREAT | 20 | | [facility] | | | | | LABORATORY | + + + + + | CALCIUM | 7.3 (L) | 8.5 - 10.5 mg/dL | [facility] | | | | | LABORATORY | + + + + + | EGFR | >60Comment: GFR <60: | >60 mL/min/1.73m2 | [facility] | | | CHRONIC KIDNEY DISEASE, | | LABORATORY | | | IF FOUND OVER A 3 MONTH | | | | | PERIOD.GFR <15: KIDNEY | | | | | FAILURE.FOR | | | | | AMERICANS, MULTIPLY THE | | | | | CALCULATED GFR BY | | | | | 1.210.This eGFR is | | | | | calculated using the | | | | | MDRD IDFL traceable | | | | | equation.Testing | | | | | performed at [facility], [address] | | | | [facility], | | | | | [place] [address] | | | + + + + + + + | Specimen | + + | Blood | + + + + + + + | Performing | Address | City/State/Zipcode | Phone Number | | Organization | | | | + + + + + | [facility] | [address] | [place] [address] | [phone] | | LABORATORY | [place] | | | + + + + + POCT glucose (02/24/2018 12:28 AM) + + + + + | Component | Value | Ref Range | Performed At | + + + + + | GLUCOSE,POC SCREEN | 100 (H)Comment: Testing | 65 - 99 mg/dL | [facility] | | | performed at [facility];[address] | | | | | [address];[place], [place] | | | | | [address] | | | + + + + + + + + + + | Performing | Address | City/State/Zipcode | Phone Number | | Organization | | | | + + + + + | [facility] | [address] | [place] [address] | | + + + + + POC arterial CG8+ (02/23/2018 8:55 PM) + + + + + | Component | Value | Ref Range | Performed At | + + + + + | pH, Art | 7.362 | 7.350 - 7.450 | [facility] | + + + + + | POC PCO2 | 41 | 35 - 45 mmHg | [facility] | + + + + + | POC p02 | 163 (H) | 80 - 105 mmHg | [facility] | + + + + + | POC HCO3 | 24 | 22 - 26 mmol/L | [facility] | + + + + + | POC TCO2 | 25 | 23 - 27 mEq/L | [facility] | + + + + + | POC BASE DEFICIT | 2 | 0.0 - 2.0 mmol/L | [facility] | + + + + + | POC S02 | 99 (H) | 95 - 98 % | [facility] | + + + + + | POC SODIUM | 138 | 135 - 145 mEq/L | [facility] | + + + + + | POC POTASSIUM | 4.1 | 3.5 - 5.0 mEq/L | [facility] | + + + + + | POC IONIZED CALCIUM | 1.08 (L) | 1.12 - 1.32 mmol/L | [facility] | + + + + + | POC GLUCOSE | 114 (H) | 65 - 99 mg/dL | [facility] | + + + + + | POC HCT | 34 (L) | 40.0 - 50.0 % | [facility] | + + + + + | POC HGB | 11.6 (L)Comment: Testing | 13.7 - 16.7 g/dL | [facility] | | | performed at [facility];[address] | | | | | [address];[place] | | | | | [address] | | | + + + + + + + + + + | Performing | Address | City/State/Zipcode | Phone Number | | Organization | | | | + + + + + | [facility] | [address] | [place] [address] | | + + + + + POCT glucose (02/23/2018 6:46 PM) + + + + + | Component | Value | Ref Range | Performed At | + + + + + | GLUCOSE,POC SCREEN | 109 (H)Comment: Testing | 65 - 99 mg/dL | [facility] | | | performed at [facility];[address] | | | | | [address];[place] | | | | | [address] | | | + + + + + + + + + + | Performing | Address | City/State/Zipcode | Phone Number | | Organization | | | | + + + + + | [facility] | [address] | [place] [address] | | + + + + + POCT glucose (02/23/2018 4:22 PM) + + + + + | Component | Value | Ref Range | Performed At | + + + + + | GLUCOSE,POC SCREEN | 128 (H)Comment: Testing | 65 - 99 mg/dL | [facility] | | | performed at [facility] [place];[address] | | | | | [facility] | | | | | [address] | | | + + + + + + + + + + | Performing | Address | City/State/Zipcode | Phone Number | | Organization | | | | + + + + + | [facility] | [address] | [place] [address] | | + + + + + CBC w/auto diff (reflex to manual) (02/23/2018 4:09 PM) + + + + + | Component | Value | Ref Range | Performed At | + + + + + | WBC | 10.11 | 3.80 - 11.00 K/uL | [facility] | | | | | [facility] | + + + + + | RBC | 4.44 | 4.20 - 5.70 M/uL | [facility] | | | | | [facility] | + + + + + | HGB | 13.9 | 13.2 - 17.0 g/dL | [facility] | | | | | [facility] | + + + + + | HCT | 39.2 | 39.0 - 50.0 % | [facility] | | | | | [facility] | + + + + + | MCV | 88.3 | 80.0 - 100.0 fl | [facility] | | | | | [facility] | + + + + + | MCH | 31.2 | 27.0 - 34.0 pg | [facility] | | | | | [facility] | + + + + + | MCHC | 35.3 | 32.0 - 35.5 g/dL | [facility] | | | | | [facility] | + + + + + | RDW SD | 39.8 | 37 - 53 fl | [facility] | | | | | [facility] | + + + + + | PLT | 245 | 150 - 400 K/uL | [facility] | | | | | [facility] | + + + + + | MPV | 8.0 | fl | [facility] | | | | | [facility] | + + + + + | DIFF TYPE | MANUAL | | [facility] | | | | | [facility] | + + + + + | Neutrophils Manual | 76 | % | [facility] | | | | | [facility] | + + + + + | Bands | 7 | % | [facility] | | | | | [facility] | + + + + + | METAMYELOCYTES | 1 | % | [facility] | | | | | [facility] | + + + + + | MYELOCYTES | 1 | % | [facility] | | | | | [facility] | + + + + + | Lymphocytes Manual | 12 | % | [facility] | | | | | [facility] | + + + + + | Monocytes Manual | 3 | % | [facility] | | | | | [facility] | + + + + + | Neutrophils Absolute | 7.69 (H) | 1.90 - 7.40 K/uL | [facility] | | | | | [facility] | + + + + + | Bands Manual | 0.71 (H) | 0.00 - 0.20 K/uL | [facility] | | | | | [facility] | + + + + + | Metamyelocytes | 0.10 (H) | 0.00 K/uL | [facility] | | Absolute | | | LABORATORY | + + + + + | Myelocytes Absolute | 0.10 (H) | 0.00 K/uL | [facility] | | | | | [facility] | + + + + + | Lymphocytes Absolute | 1.21 | 1.00 - 3.90 K/uL | [facility] | | | | | [facility] | + + + + + | Monocytes Absolute | 0.30 | 0.00 - 0.80 K/uL | [facility] | | | | | [facility] | + + + + + | MORPHOLOGY | PLATELET | | [facility] | | | ANISOCYTOSISComment: | | LABORATORY | | | NORMAL RBC MORPH | | | + + + + + | Diff Comment | PLATELETS CLUMPED, | | [facility] | | | APPEAR ADEQUATEComment: | | LABORATORY | | | Testing performed at | | | | | [facility], [address] | | | | | [place] | | | | | [address] | | | + + + + + + + | Specimen | + + | Blood | + + + + + + + | Performing | Address | City/State/Zipcode | Phone Number | | Organization | | | | + + + + + | [facility] | [address] | [place] [address] | [phone] | | LABORATORY | [address] | | | + + + + + Type and Screen (Blood Bank) (02/23/2018 4:09 PM) + + + + + | Component | Value | Ref Range | Performed At | + + + + + | ABO/RH(D) | A POSITIVE | | [facility] | + + + + + | ANTIBODY SCREEN | NEGATIVE | | [facility] | + + + + + | ARM BAND NUMBER | [id number] | | [facility] | | | performed at [facility];[address] | | [address];[place] | | | | | [address] | | | + + + + + + + | Specimen | + + | Blood | + + + + + + + | Performing | Address | City/State/Zipcode | Phone Number | | Organization | | | | + + + + + | [facility] | [address] | [place] [address] | | + + + + + POCT glucose (02/23/2018 12:17 PM) + + + + + | Component | Value | Ref Range | Performed At | + + + + + | GLUCOSE,POC SCREEN | 138 (H)Comment: Testing | 65 - 99 mg/dL | [facility] | | | performed at [facility];[address] | | | | | [place] | | | | | [address] | | | + + + + + + + + + + | Performing | Address | City/State/Zipcode | Phone Number | | Organization | | | | + + + + + | [facility] | [address] | [place] [address] | | + + + + + Vancomycin, trough (02/23/2018 8:21 AM) + + + + + | Component | Value | Ref Range | Performed At | + + + + + | VANCOMYCIN,TROUGH | 16.6Comment: 15 to 20 | 10 - 20 ug/mL | [facility] | | | ug/mL for meningitis, | | | | | osteomyelitis, | | | | | endocarditis, sepsis, or | | | | | healthcare associated | | | | | pneumonia, or an MODESTA | | | | | equal to or greater than | | | | | 1.0 ug/mLTesting | | | | | performed at [facility];[address] | | [address];[place], [place] | | | | | [address] | | | + + + + + + + | Specimen | + + | Blood | + + + + + + + | Performing | Address | City/State/Zipcode | Phone Number | | Organization | | | | + + + + + | [facility] | [address] | [place] [address] | | + + + + + POCT glucose (02/23/2018 5:33 AM) + + + + + | Component | Value | Ref Range | Performed At | + + + + + | GLUCOSE,POC SCREEN | 163 (H)Comment: Testing | 65 - 99 mg/dL | [facility] | | | performed at [facility];[address] | | | | | [place] | | | | | [address] | | | + + + + + + + + + + | Performing | Address | City/State/Zipcode | Phone Number | | Organization | | | | + + + + + | [facility] | [address] | [place] [address] | | + + + + + APTT (02/23/2018 12:25 AM) + + + + + | Component | Value | Ref Range | Performed At | + + + + + | APTT | 40 (H)Comment: Testing | 23 - 32 seconds | [facility] | | | performed at [facility];[address] | | | | | [address];[place] | | | | | [address] | | | + + + + + + + | Specimen | + + | Blood | + + + + + + + | Performing | Address | City/State/Zipcode | Phone Number | | Organization | | | | + + + + + | [facility] | [address] | [place] [address] | | + + + + + POCT glucose (02/22/2018 9:39 PM) + + + + + | Component | Value | Ref Range | Performed At | + + + + + | GLUCOSE,POC SCREEN | 95Comment: Testing | 65 - 99 mg/dL | [facility] | | | performed at [facility];[address] | | | | | [place] | | | | | [address] | | | + + + + + + + + + + | Performing | Address | City/State/Zipcode | Phone Number | | Organization | | | | + + + + + | [facility] | [address] | [place] [address] | | + + + + + IR guidance vascular access US (02/22/2018 8:59 PM) + + + | Narrative | Performed At | + + + | This Point of Care (POC) ultrasound image has been reviewed and | [facility] | | interpreted by the physician identified as the performing physician in | RADIOLOGY | | the associated interpretation and report. 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 Diagnostic | | | abdominal aortogram with bilateral iliac angiography (via left common | | | femoral artery approach) 2. Selective catheterization of right | | | femoral artery for selective angiography 3. Selective catheterization | | | of right popliteal artery for selective angiography 4. Balloon | | | angioplasty of right anterior tibial artery and peroneal artery using | | | 2.5mm angioplasty balloon 5. Supervision and interpretation of | | | abdominal aortogram with bilateral iliac angiogram, selective | | | catheterization with selective angiography of right femoral artery and | | | popliteal artery, atherectomy of right superficial femoral artery and | | | popliteal artery, balloon angioplasty of right superficial femoral | | | artery and right popliteal artery, balloon angioplasty of right | | | anterior tibial artery and peroneal artery ANESTHESIA: Moderate | | | sedation and Local anesthesia with 1% Lidocaine SEDATION: Moderate | | | conscious sedation was administered during the procedure by the | | | physician and nursing staff with continuous hemodynamic monitoring | | | throughout the procedure. Total Sedation: Versed: 2mg; Fentanyl: | | | 100mcg; Total Sedation Time: 41minutes CONTRAST: 90mL Isovue-250 | | | FLUOROSCOPY TIME: 15.4min, Dose 394mGy SPECIMEN: None | | | ESTIMATED BLOOD LOSS: Less Than 10 ml (Minimal) BLOOD | | | ADMINISTERED: 0 unit PRBC transfusion COMPLICATIONS: None | | | CONDITION: Stable INDICATIONS: This is a 57 y.o. male patient who | | | has been diagnosed with peripheral arterial disease with clinical | | | manifestations of right lower extremity non healing wound with | | | gangrene. Due to his worsening of clinical symptoms, the patient | | | underwent lower leg arterial duplex ultrasound study which revealed | | | significant lower extremity arterial occlusive disease. The patient | | | was therefore scheduled to undergo lower leg arteriographic evaluation | | | with possible endovascular interventions. I've discussed with the | | | patient regarding the benefits and risks of the procedure. The patient | | | is aware of the benefits of the planned procedure which is identify | | | lower leg arterial occlusive disease and to improve his lower leg | | | arterial circulation via endovascular intervention. The patient is | | | also aware of the potential risks of the procedure, which include | | | contrast-induced nephropathy, vessel perforation, arterial dissection, | | | contrast-induced allergic reaction, bleeding, nerve injury and wound | | | infection. The overall risk of these complications is 1%. The patient | | | has accepted these benefits and risks, and agreed to proceed with the | | | planned procedure. PROCEDURE IN DETAIL: The patient was brought to | | | the labeler and placed on supine position. Moderate sedation was | | | given. The left groin was prepped sterilely and draped in the standard | | | fashion. Appropriate time out was performed whereby the patient and | | | site of surgery were identified. The patient was given 1% lidocaine | | | for local anesthesia. Using percutaneous technique and under | | | ultrasound guidance, the left common femoral artery was accessed and a | | | 6F introducer sheath was inserted. Next a 0.035" guidewire and a | | | Contra catheter were placed in the abdominal aorta and an aortogram | | | was performed using a power injector, which was followed by bilateral | | | iliac angiography. Systemic heparin was given intravenously for | | | anticoagulation. Due to the patient's lower leg arterial disease | | | pattern, and the intention to treat, we performed selective | | | catheterization of the right common femoral artery and popliteal | | | artery which was followed by selective angiography. These angiographic | | | views demonstrated patent bilateral iliac arteries, patent right | | | common and deep femoral arteries, patent right superficial femoral | | | artery, patent popliteal artery. All the tibial arteries have tandem | | | occluded segments. Based on these angiographic findings, occlusion | | | of the proximal peroneal artery was crossed with wire and catheter, | | | followed by balloon angioplasty of the right peroneal artery using | | | 2.5mm angioplasty balloon. Tandem occluded segments of the right | | | anterior tibial artery in the mid and distal anterior tibial artery | | | was crossed with wire and catheter, followed by balloon angioplasty of | | | the right anterior tibial artery using 2.5mm angioplasty balloon. | | | Attempt to cross the occluded proximal posterior tibial artery with | | | wire and catheter was not successful. The occluded posterior tibial | | | artery reconstituted at distal leg. Next a completion angiogram | | | was performed. Next the catheter and sheath were removed from the left | | | groin. A Mynx closure device was applied in the groin following the | | | sheath removal to achieve groin hemostasis. The patient tolerated the | | | procedure well and suffered no complications. I was present throughout | | | the entire procedure. Supervision and interpretation of abdominal | | | aortogram with bilateral iliac angiogram, selective catheterization | | | with selective angiography of right femoral artery and popliteal | | | artery, atherectomy of right superficial femoral artery and popliteal | | | artery, balloon angioplasty of right superficial femoral artery and | | | right popliteal artery, balloon angioplasty of right anterior tibial | | | artery and peroneal artery: 1. Abdominal aortogram showed patent | | | abdominal aorta, patent bilateral common iliac arteries, patent | | | bilateral external iliac arteries and patent bilateral internal iliac | | | arteries. 2. Right leg angiogram showed patent common femoral artery, | | | patent deep femoral artery, patent superficial femoral artery and | | | patent popliteal artery. All the tibial arteries have tandem occluded | | | segments. 3. Diseases in the right anterior tibial artery were | | | successfully treated with balloon angioplasty. Additionally, occlusion | | | in the proximal right peroneal artery were successfully treated with | | | balloon angioplasty. 4. Following endovascular intervention, | | | completion angiogram showed a patent right anterior tibial artery as | | | the main vessel runoff to the dorsal foot, patent peroneal artery from | | | proximal to mid leg. The posterior tibial artery was occluded from | | | the origin and reconstituted at the distal leg. There was severe pedal | | | disease. | | | PM | | + + + + + | Procedure Note | + + | Claudio Soni Results In - 02/22/2018 9:46 PM PDT DATE OF PROCEDURE: 02/22/2018SURGEON: | | Johan Mueller MDPREOPERATIVE DIAGNOSIS:1) Right leg ischemia with non healing wound with | | gangrenePOSTOPERATIVE DIAGNOSIS:1) Right leg ischemia with non healing wounds2) Right | | anterior tibial, posterior tibial and peroneal artery tandem occlusionPROCEDURES:1. | | Diagnostic abdominal aortogram with bilateral iliac angiography (via left common femoral | | artery approach)2. Selective catheterization of right femoral artery for selective | | angiography3. Selective catheterization of right popliteal artery for selective | | angiography4. Balloon angioplasty of right anterior tibial artery and peroneal artery | | using 2.5mm angioplasty balloon5. Supervision and interpretation of abdominal aortogram | | with bilateral iliac angiogram, selective catheterization with selective angiography of | | right femoral artery and popliteal artery, atherectomy of right superficial femoral | | artery and popliteal artery, balloon angioplasty of right superficial femoral artery and | | right popliteal artery, balloon angioplasty of right anterior tibial artery and | | peroneal arteryANESTHESIA: Moderate sedation and Local anesthesia with 1% | | LidocaineSEDATION: Moderate conscious sedation was administered during the procedure by | | the physician and nursing staff with continuous hemodynamic monitoring throughout the | | procedure. Total Sedation: Versed: 2mg; Fentanyl: 100mcg; Total Sedation Time: | | 41minutesCONTRAST: 90mL Isovue-250FLUOROSCOPY TIME: 15.4min, Dose 394mGySPECIMEN: | | NoneESTIMATED BLOOD LOSS: Less Than 10 ml (Minimal)BLOOD ADMINISTERED: 0 unit PRBC | | transfusionCOMPLICATIONS: NoneCONDITION: StableINDICATIONS: This is a 57 y.o. male | | patient who has been diagnosed with peripheral arterial disease with clinical | | manifestations of right lower extremity non healing wound with gangrene. Due to his | | worsening of clinical symptoms, the patient underwent lower leg arterial duplex | | ultrasound study which revealed significant lower extremity arterial occlusive disease. | | The patient was therefore scheduled to undergo lower leg arteriographic evaluation with | | possible endovascular interventions. I've discussed with the patient regarding the | | benefits and risks of the procedure. The patient is aware of the benefits of the planned | | procedure which is identify lower leg arterial occlusive disease and to improve his | | lower leg arterial circulation via endovascular intervention. The patient is also aware | | of the potential risks of the procedure, which include contrast-induced nephropathy, | | vessel perforation, arterial dissection, contrast-induced allergic reaction, bleeding, | | nerve injury and wound infection. The overall risk of these complications is 1%. The | | patient has accepted these benefits and risks, and agreed to proceed with the planned | | procedure.PROCEDURE IN DETAIL: The patient was brought to the labeler and placed on | | supine position. Moderate sedation was given. The left groin was prepped sterilely and | | draped in the standard fashion. Appropriate time out was performed whereby the patient | | and site of surgery were identified. The patient was given 1% lidocaine for local | | anesthesia. Using percutaneous technique and under ultrasound guidance, the left common | | femoral artery was accessed and a 6F introducer sheath was inserted. Next a 0.035" | | guidewire and a Contra catheter were placed in the abdominal aorta and an aortogram was | | performed using a power injector, which was followed by bilateral iliac angiography. | | Systemic heparin was given intravenously for anticoagulation.Due to the patient's lower | | leg arterial disease pattern, and the intention to treat, we performed selective | | catheterization of the right common femoral artery and popliteal artery which was | | followed by selective angiography. These angiographic views demonstrated patent | | bilateral iliac arteries, patent right common and deep femoral arteries, patent right | | superficial femoral artery, patent popliteal artery. All the tibial arteries have tandem | | occluded segments.Based on these angiographic findings, occlusion of the proximal | | peroneal artery was crossed with wire and catheter, followed by balloon angioplasty of | | the right peroneal artery using 2.5mm angioplasty balloon. Tandem occluded segments of | | the right anterior tibial artery in the mid and distal anterior tibial artery was | | crossed with wire and catheter, followed by balloon angioplasty of the right anterior | | tibial artery using 2.5mm angioplasty balloon. Attempt to cross the occluded proximal | | posterior tibial artery with wire and catheter was not successful. The occluded | | posterior tibial artery reconstituted at distal leg.Next a completion angiogram was | | performed. Next the catheter and sheath were removed from the left groin. A Mynx closure | | device was applied in the groin following the sheath removal to achieve groin | | hemostasis. The patient tolerated the procedure well and suffered no complications. I | | was present throughout the entire procedure.Supervision and interpretation of abdominal | | aortogram with bilateral iliac angiogram, selective catheterization with selective | | angiography of right femoral artery and popliteal artery, atherectomy of right | | superficial femoral artery and popliteal artery, balloon angioplasty of right | | superficial femoral artery and right popliteal artery, balloon angioplasty of right | | anterior tibial artery and peroneal artery:1. Abdominal aortogram showed patent | | abdominal aorta, patent bilateral common iliac arteries, patent bilateral external iliac | | arteries and patent bilateral internal iliac arteries.2. Right leg angiogram showed | | patent common femoral artery, patent deep femoral artery, patent superficial femoral | | artery and patent popliteal artery. All the tibial arteries have tandem occluded | | segments.3. Diseases in the right anterior tibial artery were successfully treated with | | balloon angioplasty. Additionally, occlusion in the proximal right peroneal artery were | | successfully treated with balloon angioplasty.4. Following endovascular intervention, | | completion angiogram showed a patent right anterior tibial artery as the main vessel | | runoff to the dorsal foot, patent peroneal artery from proximal to mid leg. The | | posterior tibial artery was occluded from the origin and reconstituted at the distal | | leg. 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 | | 9:41 PM | + + + + + + + | Performing | Address | City/State/Zipcode | Phone Number | | Organization | | | | + + + + + | [facility] | [address] | [place] [address] | | + + + + + ADRIÁN garcia (02/22/2018 8:55 PM) + + + | Narrative | Performed At | + + + | DATE OF PROCEDURE: 02/22/2018 SURGEON: Johan Mueller MD | [facility] | | PREOPERATIVE DIAGNOSIS: 1) Right leg ischemia with non healing wound | RADIOLOGY | | with gangrene POSTOPERATIVE DIAGNOSIS: 1) Right leg ischemia with | | | non healing wounds 2) Right anterior tibial, 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 Diagnostic | | | abdominal aortogram with bilateral iliac angiography (via left common | | | femoral artery approach) 2. Selective catheterization of right | | | femoral artery for selective angiography 3. Selective catheterization | | | of right popliteal artery for selective angiography 4. Balloon | | | angioplasty of right anterior tibial artery and peroneal artery using | | | 2.5mm angioplasty balloon 5. Supervision and interpretation of | | | abdominal aortogram with bilateral iliac angiogram, selective | | | catheterization with selective angiography of right femoral artery and | | | popliteal artery, atherectomy of right superficial femoral artery and | | | popliteal artery, balloon angioplasty of right superficial femoral | | | artery and right popliteal artery, balloon angioplasty of right | | | anterior tibial artery and peroneal artery ANESTHESIA: Moderate | | | sedation and Local anesthesia with 1% Lidocaine SEDATION: Moderate | | | conscious sedation was administered during the procedure by the | | | physician and nursing staff with continuous hemodynamic monitoring | | | throughout the procedure. Total Sedation: Versed: 2mg; Fentanyl: | | | 100mcg; Total Sedation Time: 41minutes CONTRAST: 90mL Isovue-250 | | | FLUOROSCOPY TIME: 15.4min, Dose 394mGy SPECIMEN: None | | | ESTIMATED BLOOD LOSS: Less Than 10 ml (Minimal) BLOOD | | | ADMINISTERED: 0 unit PRBC transfusion COMPLICATIONS: None | | | CONDITION: Stable INDICATIONS: This is a 57 y.o. male patient who | | | has been diagnosed with peripheral arterial disease with clinical | | | manifestations of right lower extremity non healing wound with | | | gangrene. Due to his worsening of clinical symptoms, the patient | | | underwent lower leg arterial duplex ultrasound study which revealed | | | significant lower extremity arterial occlusive disease. The patient | | | was therefore scheduled to undergo lower leg arteriographic evaluation | | | with possible endovascular interventions. I've discussed with the | | | patient regarding the benefits and risks of the procedure. The patient | | | is aware of the benefits of the planned procedure which is identify | | | lower leg arterial occlusive disease and to improve his lower leg | | | arterial circulation via endovascular intervention. The patient is | | | also aware of the potential risks of the procedure, which include | | | contrast-induced nephropathy, vessel perforation, arterial dissection, | | | contrast-induced allergic reaction, bleeding, nerve injury and wound | | | infection. The overall risk of these complications is 1%. The patient | | | has accepted these benefits and risks, and agreed to proceed with the | | | planned procedure. PROCEDURE IN DETAIL: The patient was brought to | | | the labeler and placed on supine position. Moderate sedation was | | | given. The left groin was prepped sterilely and draped in the standard | | | fashion. Appropriate time out was performed whereby the patient and | | | site of surgery were identified. The patient was given 1% lidocaine | | | for local anesthesia. Using percutaneous technique and under | | | ultrasound guidance, the left common femoral artery was accessed and a | | | 6F introducer sheath was inserted. Next a 0.035" guidewire and a | | | Contra catheter were placed in the abdominal aorta and an aortogram | | | was performed using a power injector, which was followed by bilateral | | | iliac angiography. Systemic heparin was given intravenously for | | | anticoagulation. Due to the patient's lower leg arterial disease | | | pattern, and the intention to treat, we performed selective | | | catheterization of the right common femoral artery and popliteal | | | artery which was followed by selective angiography. These angiographic | | | views demonstrated patent bilateral iliac arteries, patent right | | | common and deep femoral arteries, patent right superficial femoral | | | artery, patent popliteal artery. All the tibial arteries have tandem | | | occluded segments. Based on these angiographic findings, occlusion | | | of the proximal peroneal artery was crossed with wire and catheter, | | | followed by balloon angioplasty of the right peroneal artery using | | | 2.5mm angioplasty balloon. Tandem occluded segments of the right | | | anterior tibial artery in the mid and distal anterior tibial artery | | | was crossed with wire and catheter, followed by balloon angioplasty of | | | the right anterior tibial artery using 2.5mm angioplasty balloon. | | | Attempt to cross the occluded proximal posterior tibial artery with | | | wire and catheter was not successful. The occluded posterior tibial | | | artery reconstituted at distal leg. Next a completion angiogram | | | was performed. Next the catheter and sheath were removed from the left | | | groin. A Mynx closure device was applied in the groin following the | | | sheath removal to achieve groin hemostasis. The patient tolerated the | | | procedure well and suffered no complications. I was present throughout | | | the entire procedure. Supervision and interpretation of abdominal | | | aortogram with bilateral iliac angiogram, selective catheterization | | | with selective angiography of right femoral artery and popliteal | | | artery, atherectomy of right superficial femoral artery and popliteal | | | artery, balloon angioplasty of right superficial femoral artery and | | | right popliteal artery, balloon angioplasty of right anterior tibial | | | artery and peroneal artery: 1. Abdominal aortogram showed patent | | | abdominal aorta, patent bilateral common iliac arteries, patent | | | bilateral external iliac arteries and patent bilateral internal iliac | | | arteries. 2. Right leg angiogram showed patent common femoral artery, | | | patent deep femoral artery, patent superficial femoral artery and | | | patent popliteal artery. All the tibial arteries have tandem occluded | | | segments. 3. Diseases in the right anterior tibial artery were | | | successfully treated with balloon angioplasty. Additionally, occlusion | | | in the proximal right peroneal artery were successfully treated with | | | balloon angioplasty. 4. Following endovascular intervention, | | | completion angiogram showed a patent right anterior tibial artery as | | | the main vessel runoff to the dorsal foot, patent peroneal artery from | | | proximal to mid leg. The posterior tibial artery was occluded from | | | the origin and reconstituted at the distal leg. There was severe pedal | | | disease. | | | PM | | + + + + + | Procedure Note | + + | Claudio Soni Results In - 02/22/2018 9:46 PM PDT DATE OF PROCEDURE: 02/22/2018SURGEON: | | Johan Mueller MDPREOPERATIVE DIAGNOSIS:1) Right leg ischemia with non healing wound with | | gangrenePOSTOPERATIVE DIAGNOSIS:1) Right leg ischemia with non healing wounds2) Right | | anterior tibial, posterior tibial and peroneal artery tandem occlusionPROCEDURES:1. | | Diagnostic abdominal aortogram with bilateral iliac angiography (via left common femoral | | artery approach)2. Selective catheterization of right femoral artery for selective | | angiography3. Selective catheterization of right popliteal artery for selective | | angiography4. Balloon angioplasty of right anterior tibial artery and peroneal artery | | using 2.5mm angioplasty balloon5. Supervision and interpretation of abdominal aortogram | | with bilateral iliac angiogram, selective catheterization with selective angiography of | | right femoral artery and popliteal artery, atherectomy of right superficial femoral | | artery and popliteal artery, balloon angioplasty of right superficial femoral artery and | | right popliteal artery, balloon angioplasty of right anterior tibial artery and | | peroneal arteryANESTHESIA: Moderate sedation and Local anesthesia with 1% | | LidocaineSEDATION: Moderate conscious sedation was administered during the procedure by | | the physician and nursing staff with continuous hemodynamic monitoring throughout the | | procedure. Total Sedation: Versed: 2mg; Fentanyl: 100mcg; Total Sedation Time: | | 41minutesCONTRAST: 90mL Isovue-250FLUOROSCOPY TIME: 15.4min, Dose 394mGySPECIMEN: | | NoneESTIMATED BLOOD LOSS: Less Than 10 ml (Minimal)BLOOD ADMINISTERED: 0 unit PRBC | | transfusionCOMPLICATIONS: NoneCONDITION: StableINDICATIONS: This is a 57 y.o. male | | patient who has been diagnosed with peripheral arterial disease with clinical | | manifestations of right lower extremity non healing wound with gangrene. Due to his | | worsening of clinical symptoms, the patient underwent lower leg arterial duplex | | ultrasound study which revealed significant lower extremity arterial occlusive disease. | | The patient was therefore scheduled to undergo lower leg arteriographic evaluation with | | possible endovascular interventions. I've discussed with the patient regarding the | | benefits and risks of the procedure. The patient is aware of the benefits of the planned | | procedure which is identify lower leg arterial occlusive disease and to improve his | | lower leg arterial circulation via endovascular intervention. The patient is also aware | | of the potential risks of the procedure, which include contrast-induced nephropathy, | | vessel perforation, arterial dissection, contrast-induced allergic reaction, bleeding, | | nerve injury and wound infection. The overall risk of these complications is 1%. The | | patient has accepted these benefits and risks, and agreed to proceed with the planned | | procedure.PROCEDURE IN DETAIL: The patient was brought to the labeler and placed on | | supine position. Moderate sedation was given. The left groin was prepped sterilely and | | draped in the standard fashion. Appropriate time out was performed whereby the patient | | and site of surgery were identified. The patient was given 1% lidocaine for local | | anesthesia. Using percutaneous technique and under ultrasound guidance, the left common | | femoral artery was accessed and a 6F introducer sheath was inserted. Next a 0.035" | | guidewire and a Contra catheter were placed in the abdominal aorta and an aortogram was | | performed using a power injector, which was followed by bilateral iliac angiography. | | Systemic heparin was given intravenously for anticoagulation.Due to the patient's lower | | leg arterial disease pattern, and the intention to treat, we performed selective | | catheterization of the right common femoral artery and popliteal artery which was | | followed by selective angiography. These angiographic views demonstrated patent | | bilateral iliac arteries, patent right common and deep femoral arteries, patent right | | superficial femoral artery, patent popliteal artery. All the tibial arteries have tandem | | occluded segments.Based on these angiographic findings, occlusion of the proximal | | peroneal artery was crossed with wire and catheter, followed by balloon angioplasty of | | the right peroneal artery using 2.5mm angioplasty balloon. Tandem occluded segments of | | the right anterior tibial artery in the mid and distal anterior tibial artery was | | crossed with wire and catheter, followed by balloon angioplasty of the right anterior | | tibial artery using 2.5mm angioplasty balloon. Attempt to cross the occluded proximal | | posterior tibial artery with wire and catheter was not successful. The occluded | | posterior tibial artery reconstituted at distal leg.Next a completion angiogram was | | performed. Next the catheter and sheath were removed from the left groin. A Mynx closure | | device was applied in the groin following the sheath removal to achieve groin | | hemostasis. The patient tolerated the procedure well and suffered no complications. I | | was present throughout the entire procedure.Supervision and interpretation of abdominal | | aortogram with bilateral iliac angiogram, selective catheterization with selective | | angiography of right femoral artery and popliteal artery, atherectomy of right | | superficial femoral artery and popliteal artery, balloon angioplasty of right | | superficial femoral artery and right popliteal artery, balloon angioplasty of right | | anterior tibial artery and peroneal artery:1. Abdominal aortogram showed patent | | abdominal aorta, patent bilateral common iliac arteries, patent bilateral external iliac | | arteries and patent bilateral internal iliac arteries.2. Right leg angiogram showed | | patent common femoral artery, patent deep femoral artery, patent superficial femoral | | artery and patent popliteal artery. All the tibial arteries have tandem occluded | | segments.3. Diseases in the right anterior tibial artery were successfully treated with | | balloon angioplasty. Additionally, occlusion in the proximal right peroneal artery were | | successfully treated with balloon angioplasty.4. Following endovascular intervention, | | completion angiogram showed a patent right anterior tibial artery as the main vessel | | runoff to the dorsal foot, patent peroneal artery from proximal to mid leg. The | | posterior tibial artery was occluded from the origin and reconstituted at the distal | | leg. 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 | | 9:41 PM | + + + + + + + | Performing | Address | City/State/Zipcode | Phone Number | | Organization | | | | + + + + + | [facility] | [address] | [place] [address] | | + + + + + IR aortagram abdominal (02/22/2018 8:55 PM) + + + | Narrative | Performed At | + + + | DATE OF PROCEDURE: 02/22/2018 SURGEON: Johan Mueller MD | [facility] | | PREOPERATIVE DIAGNOSIS: 1) Right leg ischemia with non healing wound | RADIOLOGY | | with gangrene POSTOPERATIVE DIAGNOSIS: 1) Right leg ischemia with | | | non healing wounds 2) Right anterior tibial, 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 Diagnostic | | | abdominal aortogram with bilateral iliac angiography (via left common | | | femoral artery approach) 2. Selective catheterization of right | | | femoral artery for selective angiography 3. Selective catheterization | | | of right popliteal artery for selective angiography 4. Balloon | | | angioplasty of right anterior tibial artery and peroneal artery using | | | 2.5mm angioplasty balloon 5. Supervision and interpretation of | | | abdominal aortogram with bilateral iliac angiogram, selective | | | catheterization with selective angiography of right femoral artery and | | | popliteal artery, atherectomy of right superficial femoral artery and | | | popliteal artery, balloon angioplasty of right superficial femoral | | | artery and right popliteal artery, balloon angioplasty of right | | | anterior tibial artery and peroneal artery ANESTHESIA: Moderate | | | sedation and Local anesthesia with 1% Lidocaine SEDATION: Moderate | | | conscious sedation was administered during the procedure by the | | | physician and nursing staff with continuous hemodynamic monitoring | | | throughout the procedure. Total Sedation: Versed: 2mg; Fentanyl: | | | 100mcg; Total Sedation Time: 41minutes CONTRAST: 90mL Isovue-250 | | | FLUOROSCOPY TIME: 15.4min, Dose 394mGy SPECIMEN: None | | | ESTIMATED BLOOD LOSS: Less Than 10 ml (Minimal) BLOOD | | | ADMINISTERED: 0 unit PRBC transfusion COMPLICATIONS: None | | | CONDITION: Stable INDICATIONS: This is a 57 y.o. male patient who | | | has been diagnosed with peripheral arterial disease with clinical | | | manifestations of right lower extremity non healing wound with | | | gangrene. Due to his worsening of clinical symptoms, the patient | | | underwent lower leg arterial duplex ultrasound study which revealed | | | significant lower extremity arterial occlusive disease. The patient | | | was therefore scheduled to undergo lower leg arteriographic evaluation | | | with possible endovascular interventions. I've discussed with the | | | patient regarding the benefits and risks of the procedure. The patient | | | is aware of the benefits of the planned procedure which is identify | | | lower leg arterial occlusive disease and to improve his lower leg | | | arterial circulation via endovascular intervention. The patient is | | | also aware of the potential risks of the procedure, which include | | | contrast-induced nephropathy, vessel perforation, arterial dissection, | | | contrast-induced allergic reaction, bleeding, nerve injury and wound | | | infection. The overall risk of these complications is 1%. The patient | | | has accepted these benefits and risks, and agreed to proceed with the | | | planned procedure. PROCEDURE IN DETAIL: The patient was brought to | | | the labeler and placed on supine position. Moderate sedation was | | | given. The left groin was prepped sterilely and draped in the standard | | | fashion. Appropriate time out was performed whereby the patient and | | | site of surgery were identified. The patient was given 1% lidocaine | | | for local anesthesia. Using percutaneous technique and under | | | ultrasound guidance, the left common femoral artery was accessed and a | | | 6F introducer sheath was inserted. Next a 0.035" guidewire and a | | | Contra catheter were placed in the abdominal aorta and an aortogram | | | was performed using a power injector, which was followed by bilateral | | | iliac angiography. Systemic heparin was given intravenously for | | | anticoagulation. Due to the patient's lower leg arterial disease | | | pattern, and the intention to treat, we performed selective | | | catheterization of the right common femoral artery and popliteal | | | artery which was followed by selective angiography. These angiographic | | | views demonstrated patent bilateral iliac arteries, patent right | | | common and deep femoral arteries, patent right superficial femoral | | | artery, patent popliteal artery. All the tibial arteries have tandem | | | occluded segments. Based on these angiographic findings, occlusion | | | of the proximal peroneal artery was crossed with wire and catheter, | | | followed by balloon angioplasty of the right peroneal artery using | | | 2.5mm angioplasty balloon. Tandem occluded segments of the right | | | anterior tibial artery in the mid and distal anterior tibial artery | | | was crossed with wire and catheter, followed by balloon angioplasty of | | | the right anterior tibial artery using 2.5mm angioplasty balloon. | | | Attempt to cross the occluded proximal posterior tibial artery with | | | wire and catheter was not successful. The occluded posterior tibial | | | artery reconstituted at distal leg. Next a completion angiogram | | | was performed. Next the catheter and sheath were removed from the left | | | groin. A Mynx closure device was applied in the groin following the | | | sheath removal to achieve groin hemostasis. The patient tolerated the | | | procedure well and suffered no complications. I was present throughout | | | the entire procedure. Supervision and interpretation of abdominal | | | aortogram with bilateral iliac angiogram, selective catheterization | | | with selective angiography of right femoral artery and popliteal | | | artery, atherectomy of right superficial femoral artery and popliteal | | | artery, balloon angioplasty of right superficial femoral artery and | | | right popliteal artery, balloon angioplasty of right anterior tibial | | | artery and peroneal artery: 1. Abdominal aortogram showed patent | | | abdominal aorta, patent bilateral common iliac arteries, patent | | | bilateral external iliac arteries and patent bilateral internal iliac | | | arteries. 2. Right leg angiogram showed patent common femoral artery, | | | patent deep femoral artery, patent superficial femoral artery and | | | patent popliteal artery. All the tibial arteries have tandem occluded | | | segments. 3. Diseases in the right anterior tibial artery were | | | successfully treated with balloon angioplasty. Additionally, occlusion | | | in the proximal right peroneal artery were successfully treated with | | | balloon angioplasty. 4. Following endovascular intervention, | | | completion angiogram showed a patent right anterior tibial artery as | | | the main vessel runoff to the dorsal foot, patent peroneal artery from | | | proximal to mid leg. The posterior tibial artery was occluded from | | | the origin and reconstituted at the distal leg. There was severe pedal | | | disease. | | | PM | | + + + + + | Procedure Note | + + | Claudio Soni Results In - 02/22/2018 9:46 PM PDT DATE OF PROCEDURE: 02/22/2018SURGEON: | | Johan Mueller MDPREOPERATIVE DIAGNOSIS:1) Right leg ischemia with non healing wound with | | gangrenePOSTOPERATIVE DIAGNOSIS:1) Right leg ischemia with non healing wounds2) Right | | anterior tibial, posterior tibial and peroneal artery tandem occlusionPROCEDURES:1. | | Diagnostic abdominal aortogram with bilateral iliac angiography (via left common femoral | | artery approach)2. Selective catheterization of right femoral artery for selective | | angiography3. Selective catheterization of right popliteal artery for selective | | angiography4. Balloon angioplasty of right anterior tibial artery and peroneal artery | | using 2.5mm angioplasty balloon5. Supervision and interpretation of abdominal aortogram | | with bilateral iliac angiogram, selective catheterization with selective angiography of | | right femoral artery and popliteal artery, atherectomy of right superficial femoral | | artery and popliteal artery, balloon angioplasty of right superficial femoral artery and | | right popliteal artery, balloon angioplasty of right anterior tibial artery and | | peroneal arteryANESTHESIA: Moderate sedation and Local anesthesia with 1% | | LidocaineSEDATION: Moderate conscious sedation was administered during the procedure by | | the physician and nursing staff with continuous hemodynamic monitoring throughout the | | procedure. Total Sedation: Versed: 2mg; Fentanyl: 100mcg; Total Sedation Time: | | 41minutesCONTRAST: 90mL Isovue-250FLUOROSCOPY TIME: 15.4min, Dose 394mGySPECIMEN: | | NoneESTIMATED BLOOD LOSS: Less Than 10 ml (Minimal)BLOOD ADMINISTERED: 0 unit PRBC | | transfusionCOMPLICATIONS: NoneCONDITION: StableINDICATIONS: This is a 57 y.o. male | | patient who has been diagnosed with peripheral arterial disease with clinical | | manifestations of right lower extremity non healing wound with gangrene. Due to his | | worsening of clinical symptoms, the patient underwent lower leg arterial duplex | | ultrasound study which revealed significant lower extremity arterial occlusive disease. | | The patient was therefore scheduled to undergo lower leg arteriographic evaluation with | | possible endovascular interventions. I've discussed with the patient regarding the | | benefits and risks of the procedure. The patient is aware of the benefits of the planned | | procedure which is identify lower leg arterial occlusive disease and to improve his | | lower leg arterial circulation via endovascular intervention. The patient is also aware | | of the potential risks of the procedure, which include contrast-induced nephropathy, | | vessel perforation, arterial dissection, contrast-induced allergic reaction, bleeding, | | nerve injury and wound infection. The overall risk of these complications is 1%. The | | patient has accepted these benefits and risks, and agreed to proceed with the planned | | procedure.PROCEDURE IN DETAIL: The patient was brought to the labeler and placed on | | supine position. Moderate sedation was given. The left groin was prepped sterilely and | | draped in the standard fashion. Appropriate time out was performed whereby the patient | | and site of surgery were identified. The patient was given 1% lidocaine for local | | anesthesia. Using percutaneous technique and under ultrasound guidance, the left common | | femoral artery was accessed and a 6F introducer sheath was inserted. Next a 0.035" | | guidewire and a Contra catheter were placed in the abdominal aorta and an aortogram was | | performed using a power injector, which was followed by bilateral iliac angiography. | | Systemic heparin was given intravenously for anticoagulation.Due to the patient's lower | | leg arterial disease pattern, and the intention to treat, we performed selective | | catheterization of the right common femoral artery and popliteal artery which was | | followed by selective angiography. These angiographic views demonstrated patent | | bilateral iliac arteries, patent right common and deep femoral arteries, patent right | | superficial femoral artery, patent popliteal artery. All the tibial arteries have tandem | | occluded segments.Based on these angiographic findings, occlusion of the proximal | | peroneal artery was crossed with wire and catheter, followed by balloon angioplasty of | | the right peroneal artery using 2.5mm angioplasty balloon. Tandem occluded segments of | | the right anterior tibial artery in the mid and distal anterior tibial artery was | | crossed with wire and catheter, followed by balloon angioplasty of the right anterior | | tibial artery using 2.5mm angioplasty balloon. Attempt to cross the occluded proximal | | posterior tibial artery with wire and catheter was not successful. The occluded | | posterior tibial artery reconstituted at distal leg.Next a completion angiogram was | | performed. Next the catheter and sheath were removed from the left groin. A Mynx closure | | device was applied in the groin following the sheath removal to achieve groin | | hemostasis. The patient tolerated the procedure well and suffered no complications. I | | was present throughout the entire procedure.Supervision and interpretation of abdominal | | aortogram with bilateral iliac angiogram, selective catheterization with selective | | angiography of right femoral artery and popliteal artery, atherectomy of right | | superficial femoral artery and popliteal artery, balloon angioplasty of right | | superficial femoral artery and right popliteal artery, balloon angioplasty of right | | anterior tibial artery and peroneal artery:1. Abdominal aortogram showed patent | | abdominal aorta, patent bilateral common iliac arteries, patent bilateral external iliac | | arteries and patent bilateral internal iliac arteries.2. Right leg angiogram showed | | patent common femoral artery, patent deep femoral artery, patent superficial femoral | | artery and patent popliteal artery. All the tibial arteries have tandem occluded | | segments.3. Diseases in the right anterior tibial artery were successfully treated with | | balloon angioplasty. Additionally, occlusion in the proximal right peroneal artery were | | successfully treated with balloon angioplasty.4. Following endovascular intervention, | | completion angiogram showed a patent right anterior tibial artery as the main vessel | | runoff to the dorsal foot, patent peroneal artery from proximal to mid leg. The | | posterior tibial artery was occluded from the origin and reconstituted at the distal | | leg. 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 | | 9:41 PM | + + + + + + + | Performing | Address | City/State/Zipcode | Phone Number | | Organization | | | | + + + + + | [facility] | [address] | [place] [address] | | + + + + + IR angiogram extremity right (02/22/2018 8:55 PM) + + + | Narrative | Performed At | + + + | DATE OF PROCEDURE: 02/22/2018 SURGEON: Johan Mueller MD | [facility] | | PREOPERATIVE DIAGNOSIS: 1) Right leg ischemia with non healing wound | RADIOLOGY | | with gangrene POSTOPERATIVE DIAGNOSIS: 1) Right leg ischemia with | | | non healing wounds 2) Right anterior tibial, 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 Diagnostic | | | abdominal aortogram with bilateral iliac angiography (via left common | | | femoral artery approach) 2. Selective catheterization of right | | | femoral artery for selective angiography 3. Selective catheterization | | | of right popliteal artery for selective angiography 4. Balloon | | | angioplasty of right anterior tibial artery and peroneal artery using | | | 2.5mm angioplasty balloon 5. Supervision and interpretation of | | | abdominal aortogram with bilateral iliac angiogram, selective | | | catheterization with selective angiography of right femoral artery and | | | popliteal artery, atherectomy of right superficial femoral artery and | | | popliteal artery, balloon angioplasty of right superficial femoral | | | artery and right popliteal artery, balloon angioplasty of right | | | anterior tibial artery and peroneal artery ANESTHESIA: Moderate | | | sedation and Local anesthesia with 1% Lidocaine SEDATION: Moderate | | | conscious sedation was administered during the procedure by the | | | physician and nursing staff with continuous hemodynamic monitoring | | | throughout the procedure. Total Sedation: Versed: 2mg; Fentanyl: | | | 100mcg; Total Sedation Time: 41minutes CONTRAST: 90mL Isovue-250 | | | FLUOROSCOPY TIME: 15.4min, Dose 394mGy SPECIMEN: None | | | ESTIMATED BLOOD LOSS: Less Than 10 ml (Minimal) BLOOD | | | ADMINISTERED: 0 unit PRBC transfusion COMPLICATIONS: None | | | CONDITION: Stable INDICATIONS: This is a 57 y.o. male patient who | | | has been diagnosed with peripheral arterial disease with clinical | | | manifestations of right lower extremity non healing wound with | | | gangrene. Due to his worsening of clinical symptoms, the patient | | | underwent lower leg arterial duplex ultrasound study which revealed | | | significant lower extremity arterial occlusive disease. The patient | | | was therefore scheduled to undergo lower leg arteriographic evaluation | | | with possible endovascular interventions. I've discussed with the | | | patient regarding the benefits and risks of the procedure. The patient | | | is aware of the benefits of the planned procedure which is identify | | | lower leg arterial occlusive disease and to improve his lower leg | | | arterial circulation via endovascular intervention. The patient is | | | also aware of the potential risks of the procedure, which include | | | contrast-induced nephropathy, vessel perforation, arterial dissection, | | | contrast-induced allergic reaction, bleeding, nerve injury and wound | | | infection. The overall risk of these complications is 1%. The patient | | | has accepted these benefits and risks, and agreed to proceed with the | | | planned procedure. PROCEDURE IN DETAIL: The patient was brought to | | | the labeler and placed on supine position. Moderate sedation was | | | given. The left groin was prepped sterilely and draped in the standard | | | fashion. Appropriate time out was performed whereby the patient and | | | site of surgery were identified. The patient was given 1% lidocaine | | | for local anesthesia. Using percutaneous technique and under | | | ultrasound guidance, the left common femoral artery was accessed and a | | | 6F introducer sheath was inserted. Next a 0.035" guidewire and a | | | Contra catheter were placed in the abdominal aorta and an aortogram | | | was performed using a power injector, which was followed by bilateral | | | iliac angiography. Systemic heparin was given intravenously for | | | anticoagulation. Due to the patient's lower leg arterial disease | | | pattern, and the intention to treat, we performed selective | | | catheterization of the right common femoral artery and popliteal | | | artery which was followed by selective angiography. These angiographic | | | views demonstrated patent bilateral iliac arteries, patent right | | | common and deep femoral arteries, patent right superficial femoral | | | artery, patent popliteal artery. All the tibial arteries have tandem | | | occluded segments. Based on these angiographic findings, occlusion | | | of the proximal peroneal artery was crossed with wire and catheter, | | | followed by balloon angioplasty of the right peroneal artery using | | | 2.5mm angioplasty balloon. Tandem occluded segments of the right | | | anterior tibial artery in the mid and distal anterior tibial artery | | | was crossed with wire and catheter, followed by balloon angioplasty of | | | the right anterior tibial artery using 2.5mm angioplasty balloon. | | | Attempt to cross the occluded proximal posterior tibial artery with | | | wire and catheter was not successful. The occluded posterior tibial | | | artery reconstituted at distal leg. Next a completion angiogram | | | was performed. Next the catheter and sheath were removed from the left | | | groin. A Mynx closure device was applied in the groin following the | | | sheath removal to achieve groin hemostasis. The patient tolerated the | | | procedure well and suffered no complications. I was present throughout | | | the entire procedure. Supervision and interpretation of abdominal | | | aortogram with bilateral iliac angiogram, selective catheterization | | | with selective angiography of right femoral artery and popliteal | | | artery, atherectomy of right superficial femoral artery and popliteal | | | artery, balloon angioplasty of right superficial femoral artery and | | | right popliteal artery, balloon angioplasty of right anterior tibial | | | artery and peroneal artery: 1. Abdominal aortogram showed patent | | | abdominal aorta, patent bilateral common iliac arteries, patent | | | bilateral external iliac arteries and patent bilateral internal iliac | | | arteries. 2. Right leg angiogram showed patent common femoral artery, | | | patent deep femoral artery, patent superficial femoral artery and | | | patent popliteal artery. All the tibial arteries have tandem occluded | | | segments. 3. Diseases in the right anterior tibial artery were | | | successfully treated with balloon angioplasty. Additionally, occlusion | | | in the proximal right peroneal artery were successfully treated with | | | balloon angioplasty. 4. Following endovascular intervention, | | | completion angiogram showed a patent right anterior tibial artery as | | | the main vessel runoff to the dorsal foot, patent peroneal artery from | | | proximal to mid leg. The posterior tibial artery was occluded from | | | the origin and reconstituted at the distal leg. There was severe pedal | | | disease. | | | PM | | + + + + + | Procedure Note | + + | Claudio Soni Results In - 02/22/2018 9:46 PM PDT DATE OF PROCEDURE: 02/22/2018SURGEON: | | Johan Mueller, MDPREOPERATIVE DIAGNOSIS:1) Right leg ischemia with non healing wound with | | gangrenePOSTOPERATIVE DIAGNOSIS:1) Right leg ischemia with non healing wounds2) Right | | anterior tibial, posterior tibial and peroneal artery tandem occlusionPROCEDURES:1. | | Diagnostic abdominal aortogram with bilateral iliac angiography (via left common femoral | | artery approach)2. Selective catheterization of right femoral artery for selective | | angiography3. Selective catheterization of right popliteal artery for selective | | angiography4. Balloon angioplasty of right anterior tibial artery and peroneal artery | | using 2.5mm angioplasty balloon5. Supervision and interpretation of abdominal aortogram | | with bilateral iliac angiogram, selective catheterization with selective angiography of | | right femoral artery and popliteal artery, atherectomy of right superficial femoral | | artery and popliteal artery, balloon angioplasty of right superficial femoral artery and | | right popliteal artery, balloon angioplasty of right anterior tibial artery and | | peroneal arteryANESTHESIA: Moderate sedation and Local anesthesia with 1% | | LidocaineSEDATION: Moderate conscious sedation was administered during the procedure by | | the physician and nursing staff with continuous hemodynamic monitoring throughout the | | procedure. Total Sedation: Versed: 2mg; Fentanyl: 100mcg; Total Sedation Time: | | 41minutesCONTRAST: 90mL Isovue-250FLUOROSCOPY TIME: 15.4min, Dose 394mGySPECIMEN: | | NoneESTIMATED BLOOD LOSS: Less Than 10 ml (Minimal)BLOOD ADMINISTERED: 0 unit PRBC | | transfusionCOMPLICATIONS: NoneCONDITION: StableINDICATIONS: This is a 57 y.o. male | | patient who has been diagnosed with peripheral arterial disease with clinical | | manifestations of right lower extremity non healing wound with gangrene. Due to his | | worsening of clinical symptoms, the patient underwent lower leg arterial duplex | | ultrasound study which revealed significant lower extremity arterial occlusive disease. | | The patient was therefore scheduled to undergo lower leg arteriographic evaluation with | | possible endovascular interventions. I've discussed with the patient regarding the | | benefits and risks of the procedure. The patient is aware of the benefits of the planned | | procedure which is identify lower leg arterial occlusive disease and to improve his | | lower leg arterial circulation via endovascular intervention. The patient is also aware | | of the potential risks of the procedure, which include contrast-induced nephropathy, | | vessel perforation, arterial dissection, contrast-induced allergic reaction, bleeding, | | nerve injury and wound infection. The overall risk of these complications is 1%. The | | patient has accepted these benefits and risks, and agreed to proceed with the planned | | procedure.PROCEDURE IN DETAIL: The patient was brought to the labeler and placed on | | supine position. Moderate sedation was given. The left groin was prepped sterilely and | | draped in the standard fashion. Appropriate time out was performed whereby the patient | | and site of surgery were identified. The patient was given 1% lidocaine for local | | anesthesia. Using percutaneous technique and under ultrasound guidance, the left common | | femoral artery was accessed and a 6F introducer sheath was inserted. Next a 0.035" | | guidewire and a Contra catheter were placed in the abdominal aorta and an aortogram was | | performed using a power injector, which was followed by bilateral iliac angiography. | | Systemic heparin was given intravenously for anticoagulation.Due to the patient's lower | | leg arterial disease pattern, and the intention to treat, we performed selective | | catheterization of the right common femoral artery and popliteal artery which was | | followed by selective angiography. These angiographic views demonstrated patent | | bilateral iliac arteries, patent right common and deep femoral arteries, patent right | | superficial femoral artery, patent popliteal artery. All the tibial arteries have tandem | | occluded segments.Based on these angiographic findings, occlusion of the proximal | | peroneal artery was crossed with wire and catheter, followed by balloon angioplasty of | | the right peroneal artery using 2.5mm angioplasty balloon. Tandem occluded segments of | | the right anterior tibial artery in the mid and distal anterior tibial artery was | | crossed with wire and catheter, followed by balloon angioplasty of the right anterior | | tibial artery using 2.5mm angioplasty balloon. Attempt to cross the occluded proximal | | posterior tibial artery with wire and catheter was not successful. The occluded | | posterior tibial artery reconstituted at distal leg.Next a completion angiogram was | | performed. Next the catheter and sheath were removed from the left groin. A Mynx closure | | device was applied in the groin following the sheath removal to achieve groin | | hemostasis. The patient tolerated the procedure well and suffered no complications. I | | was present throughout the entire procedure.Supervision and interpretation of abdominal | | aortogram with bilateral iliac angiogram, selective catheterization with selective | | angiography of right femoral artery and popliteal artery, atherectomy of right | | superficial femoral artery and popliteal artery, balloon angioplasty of right | | superficial femoral artery and right popliteal artery, balloon angioplasty of right | | anterior tibial artery and peroneal artery:1. Abdominal aortogram showed patent | | abdominal aorta, patent bilateral common iliac arteries, patent bilateral external iliac | | arteries and patent bilateral internal iliac arteries.2. Right leg angiogram showed | | patent common femoral artery, patent deep femoral artery, patent superficial femoral | | artery and patent popliteal artery. All the tibial arteries have tandem occluded | | segments.3. Diseases in the right anterior tibial artery were successfully treated with | | balloon angioplasty. Additionally, occlusion in the proximal right peroneal artery were | | successfully treated with balloon angioplasty.4. Following endovascular intervention, | | completion angiogram showed a patent right anterior tibial artery as the main vessel | | runoff to the dorsal foot, patent peroneal artery from proximal to mid leg. The | | posterior tibial artery was occluded from the origin and reconstituted at the distal | | leg. 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 | | 9:41 PM | + + + + + + + | Performing | Address | City/State/Zipcode | Phone Number | | Organization | | | | + + + + + | [facility] | [address] | [place] [address] | | + + + + + POC ACT, arterial (02/22/2018 8:00 PM) + + + + + | Component | Value | Ref Range | Performed At | + + + + + | POC ACT | 241 (H)Comment: Testing | 74 - 137 seconds | [facility] | | | performed at [facility] [place];[address] | | | | | [address];[place] | | | | | [address] | | | + + + + + + + + + + | Performing | Address | City/State/Zipcode | Phone Number | | Organization | | | | + + + + + | [facility] | [address] | [place] [address] | | + + + + + POCT glucose (02/22/2018 5:00 PM) + + + + + | Component | Value | Ref Range | Performed At | + + + + + | GLUCOSE,POC SCREEN | 105 (H)Comment: Testing | 65 - 99 mg/dL | [facility] | | | performed at [facility] [place];[address];[place] | | | | | [address] | | | + + + + + + + + + + | Performing | Address | City/State/Zipcode | Phone Number | | Organization | | | | + + + + + | [facility] | [address] | [place] [address] | | + + + + + POCT glucose (02/22/2018 3:16 PM) + + + + + | Component | Value | Ref Range | Performed At | + + + + + | GLUCOSE,POC SCREEN | 110 (H)Comment: Testing | 65 - 99 mg/dL | [facility] | | | performed at [facility] [place];[address] | | | | | [address];[place] | | | | | [address] | | | + + + + + + + + + + | Performing | Address | City/State/Zipcode | Phone Number | | Organization | | | | + + + + + | [facility] | [address] | [place] [address] | | + + + + + POCT glucose (02/22/2018 1:14 PM) + + + + + | Component | Value | Ref Range | Performed At | + + + + + | GLUCOSE,POC SCREEN | 76Comment: Testing | 65 - 99 mg/dL | [facility] | | | performed at [facility] [place];[address];[place] | | | | | [address] | | | + + + + + + + + + + | Performing | Address | City/State/Zipcode | Phone Number | | Organization | | | | + + + + + | [facility] | [address] | [place] [address] | | + + + + + US greater saphenous vein map bilat (02/22/2018 1:12 PM) + + + | Impressions | Performed At | + + + | 1. Bilateral greater saphenous vein mapping as described above. | [facility] | | | RADIOLOGY | + + + + + + | Narrative | Performed At | + + + | ARSNEIO WALKER 1960 US GREATER SAPHENOUS VEIN MAPPING | [facility] | | BILATERAL 02/22/2018 1:12 PM HISTORY: Bilateral lower extremity | RADIOLOGY | | venous examination for saphenous vein harvest evaluation prior to | | | bypass TECHNIQUE: Imaging was performed using a linear array | | | transducer. Solorzano scale, color flow, and power Doppler techniques | | | utilized. COMPARISON: None FINDINGS: RIGHT GREATER | | | SAPHENOUS VEIN Sapheno-femoral junction: Diameter (mm): | | | 6.1 Depth (mm): 35.7 Proximal thigh: Diameter (mm): | | | 3.7 Depth (mm): 19.2 Mid thigh: Diameter (mm): | | | 4.0 Depth (mm): 9.0 Distal thigh: Diameter (mm): | | | 3.7 Depth (mm): 7.2 Knee: Diameter (mm): | | | 3.1 Depth (mm): 7.0 Proximal calf: Diameter (mm): | | | 1.7 Depth (mm): 6.9 Mid calf: Diameter (mm): | | | 1.6 Depth (mm): 3.0 Distal calf: Diameter (mm): | | | 2.3 Depth (mm): 3.3 LEFT GREATER SAPHENOUS VEIN | | | Sapheno-femoral junction: Diameter (mm): 6.2 Depth | | | (mm): 35.5 Proximal thigh: Diameter (mm): 4.3 Depth | | | (mm): 17.9 Mid thigh: Diameter (mm): 3.7 Depth | | | (mm): 11.6 Distal thigh: Diameter (mm): 2.8 Depth | | | (mm): 9.1 Knee: Diameter (mm): 2.8 Depth (mm): 6.6 | | | Proximal calf: Diameter (mm): 2.0 Depth (mm): 2.6 Mid | | | calf: Diameter (mm): 1.5 Depth (mm): 2.7 Distal | | | calf: Diameter (mm): 1.0 Depth (mm): 3.4 | | + + + + + | Procedure Note | + + | Zachariah, Rad Results In - 02/22/2018 1:20 PM PDT ARSEN[facility] WALKER1960US GREATER | | SAPHENOUS VEIN MAPPING BILATERAL02/22/2018 1:12 PMHISTORY: Bilateral lower extremity | | venous examination for saphenous vein harvest evaluation prior to bypassTECHNIQUE: | | Imaging was performed using a linear array transducer. Solorzano scale, color flow, and power | | Doppler techniques utilized.COMPARISON: NoneFINDINGS:RIGHT GREATER SAPHENOUS | | VEINSapheno-femoral junction: Diameter (mm): 6.1 Depth (mm): 35.7Proximal thigh: | | Diameter (mm): 3.7 Depth (mm): 19.2Mid thigh: Diameter (mm): 4.0 Depth (mm): | | 9.0Distal thigh: Diameter (mm): 3.7 Depth (mm): 7.2Knee: Diameter (mm): 3.1 | | Depth (mm): 7.0Proximal calf: Diameter (mm): 1.7 Depth (mm): 6.9Mid calf: Diameter | | (mm): 1.6 Depth (mm): 3.0Distal calf: Diameter (mm): 2.3 Depth (mm): 3.3LEFT | | GREATER SAPHENOUS VEINSapheno-femoral junction: Diameter (mm): 6.2 Depth (mm): | | 35.5Proximal thigh: Diameter (mm): 4.3 Depth (mm): 17.9Mid thigh: Diameter (mm): | | 3.7 Depth (mm): 11.6Distal thigh: Diameter (mm): 2.8 Depth (mm): 9.1Knee: | | Diameter (mm): 2.8 Depth (mm): 6.6Proximal calf: Diameter (mm): 2.0 Depth (mm): | | 2.6Mid calf: Diameter (mm): 1.5 Depth (mm): 2.7Distal calf: Diameter (mm): 1.0 | | Depth (mm): 3.4IMPRESSION:1. Bilateral greater saphenous vein mapping as described | | above. | |Mid thigh: Diameter (mm): 4.0 Depth (mm): 9.0 | |Distal thigh: Diameter (mm): 3.7 Depth (mm): 7.2 | |Knee: Diameter (mm): 3.1 Depth (mm): 7.0 | |Proximal calf: Diameter (mm): 1.7 Depth (mm): 6.9 | |Mid calf: Diameter (mm): 1.6 Depth (mm): 3.0 | |Distal calf: Diameter (mm): 2.3 Depth (mm): 3.3 | | | |LEFT GREATER SAPHENOUS VEIN | | | |Sapheno-femoral junction: Diameter (mm): 6.2 Depth (mm): 35.5 | |Proximal thigh: Diameter (mm): 4.3 Depth (mm): 17.9 | |Mid thigh: Diameter (mm): 3.7 Depth (mm): 11.6 | |Distal thigh: Diameter (mm): 2.8 Depth (mm): 9.1 | |Knee: Diameter (mm): 2.8 Depth (mm): 6.6 | |Proximal calf: Diameter (mm): 2.0 Depth (mm): 2.6 | |Mid calf: Diameter (mm): 1.5 Depth (mm): 2.7 | |Distal calf: Diameter (mm): 1.0 Depth (mm): 3.4 | | | |IMPRESSION: | |1. Bilateral greater saphenous vein mapping as described above. | | | | | + + + + + + + | Performing | Address | City/State/Zipcode | Phone Number | | Organization | | | | + + + + + | [facility] | [address] | [place] [address] | | + + + + + POCT glucose (02/22/2018 11:40 AM) + + + + + | Component | Value | Ref Range | Performed At | + + + + + | GLUCOSE,POC SCREEN | 73Comment: Testing | 65 - 99 mg/dL | [facility] | | | performed at [facility] [place];[address] | | | | | [address];[place] | | | | | [address] | | | + + + + + + + + + + | Performing | Address | City/State/Zipcode | Phone Number | | Organization | | | | + + + + + | [facility] | [address] | [place] [address] | | + + + + + aPTT - Q6 starting in 6 hours x 2 (02/22/2018 11:20 AM) + + + + + | Component | Value | Ref Range | Performed At | + + + + + | APTT | 65 (H)Comment: Testing | 23 - 32 seconds | [facility] | | | performed at [facility] [place];[address] | | | | | [address];[place], [place] | | | | | [address] | | | + + + + + + + | Specimen | + + | Blood | + + + + + + + | Performing | Address | City/State/Zipcode | Phone Number | | Organization | | | | + + + + + | [facility] | [address] | [place] [address] | | + + + + + US ARMINDA resting (02/22/2018 7:55 AM) + + + | Impressions | Performed At | + + + | 1. Ankle brachial indices on the right are compatible with | [facility] | | moderate stenosis of the right posterior tibial vessel which could | RADIOLOGY | | contribute to symptoms 2. Ankle brachial indices on the left no | | | evidence of high-grade disease along the main channel but there is | | | some suppression of toe pressures, mild | | + + + + + + | Narrative | Performed At | + + + | HISTORY: 57 year-old male with pain and nonhealing wound | [facility] | | TECHNIQUE: Ultrasound interrogation of ankle-brachial indices and toe | RADIOLOGY | | pressures Prior study for comparison: None similar FINDINGS: | | | Mean right brachial pressure 127 mm Hg Mean left brachial pressure | | | 132 mm Hg Right posterior tibial vessel measured 77 mmHg. Yielding | | | an ARMINDA of 0.58. Right dorsalis pedis vessel measured 159 mmHg. | | | Yielding an ARMINAD of 1.2. Left posterior tibial vessel measured 158 | | | mmHg. Yielding an ARMINDA of 1.2 . Left dorsalis pedis vessel measured | | | 225 mmHg. Yielding an ARMINDA of 1.7. Waveforms are diminished | | | diffusely about the right digits. On the tracings here, biphasic | | | Toe pressures on the right demonstrated index of 1.3. Toe pressures | | | on the left demonstrated index of 0.68. | | + + + + + | Procedure Note | + + | Zachariah, Rad Results In 02/22/2018 8:03 AM PDT HISTORY: 57 year-old male with pain and | | nonhealing woundTECHNIQUE: Ultrasound interrogation of ankle-brachial indices and toe | | pressuresPrior study for comparison: None similarFINDINGS:Mean right brachial pressure | | 127 mm HgMean left brachial pressure 132 mm HgRight posterior tibial vessel measured 77 | | mmHg. Yielding an ARMINDA of 0.58.Right dorsalis pedis vessel measured 159 mmHg. Yielding an | | ARMINDA of 1.2.Left posterior tibial vessel measured 158 mmHg. Yielding an ARMINDA of 1.2 .Left | | dorsalis pedis vessel measured 225 mmHg. Yielding an ARMINDA of 1.7.Waveforms are | | diminished diffusely about the right digits. On the tracings here, biphasicToe pressures | | on the right demonstrated index of 1.3.Toe pressures on the left demonstrated index of | | 0.68.IMPRESSION:1. Ankle brachial indices on the right are compatible with moderate | | stenosis of the right posterior tibial vessel which could contribute to symptoms2. Ankle | | brachial indices on the left no evidence of high-grade disease along the main channel | | but there is some suppression of toe pressures, mild | |Left dorsalis pedis vessel measured 225 mmHg. Yielding an ARMINDA of 1.7. | | | |Waveforms are diminished diffusely about the right digits. On the tracings here, biphasic | | | |Toe pressures on the right demonstrated index of 1.3. | |Toe pressures on the left demonstrated index of 0.68. | | | |IMPRESSION: | | | |1. Ankle brachial indices on the right are compatible with moderate stenosis of the right p osterior tibial vessel which could contribute to symptoms | | | |2. Ankle brachial indices on the left no evidence of high-grade disease along the main rudolph ryan but there is some suppression of toe pressures, mild | | | | | | | + + + + + + + | Performing | Address | City/State/Zipcode | Phone Number | | Organization | | | | + + + + + | [facility] | [address] | [place] [address] | | + + + + + US lower extremty arterial right (02/22/2018 7:55 AM) + + + | Impressions | Performed At | + + + | 1. The proximal RECORDS ANALYSIS MANAGER appears occluded with distal reconstitution | [facility] | | via collaterals. 2. Mid peroneal artery appears occluded with | RADIOLOGY | | distal reconstitution via collaterals. 3. Probable hemodynamically | | | significant stenosis in proximal JOSE ANGEL. 4. 3 vessel monophasic | | | hyperemic distal runoff with monophasic hyperemic flow in dorsalis | | | pedis artery. Electronically signed by Francisco Javier Altamirano on | | | 02/22/2018 7:50 AM | | + + + + + + | Narrative | Performed At | + + + | ARSENIO WALKER US LOWER EXTREMITY ARTERIAL RIGHT 02/22/2018 6:29 AM | [facility] | | HISTORY: 57 years. Male. Peripheral vascular disease. | RADIOLOGY | | Right second toe amputation. COMPARISON: 10/20/2017 | | | Limitations: Suboptimal examination due to vascular calcifications and | | | atherosclerosis. Patient pain. TECHNIQUE: Sonographic evaluation | | | of bilateral lower extremity arterial system. Grayscale, color-flow, | | | and Doppler spectral analysis. | | | Peak systolic velocities (cm/s) / Doppler Waveform: Right: MOBILE EQUIPMENT OPERATOR | | | Prox: 124.8 and triphasic DFA Prox: 69.5 and triphasic SFA Prox: | | | 107.7 and triphasic SFA Mid:90.9 and triphasic SFA Distal: 78 and | | | triphasic POP Mid: 65.6 and triphasic Tibioperoneal trunk: 45 and | | | biphasic JOSE ANGEL Prox: 171.1 and triphasic JOSE ANGEL Distal: 107 and | | | monophasic RECORDS ANALYSIS MANAGER Prox: 0 and absent RECORDS ANALYSIS MANAGER Distal: 28.3 and monophasic | | | OSMAR Prox: 31 and biphasic Peroneal mid: Appears occluded. OSMAR | | | Distal: 88 and monophasic Dorsalis pedis artery: 48 and monophasic | | | Atherosclerosis in arteries of right lower extremity vascular | | | calcifications. The proximal RECORDS ANALYSIS MANAGER appears occluded with distal | | | reconstitution via collaterals. Mid peroneal artery appears occluded | | | with distal reconstitution via collaterals. Probable hemodynamically | | | significant stenosis in proximal JOSE ANGEL. | | + + + + + | Procedure Note | + + | Zachariah, Rad Results In - 02/22/2018 7:55 AM PDT ARSENIO QUEZADA LOWER EXTREMITY | | ARTERIAL RIGHT02/22/2018 6:29 AMHISTORY:57 years. Male. Peripheral vascular disease. | | Right second toe amputation.COMPARISON:10/20/2017Limitations: Suboptimal examination due | | to vascular calcifications and atherosclerosis. Patient pain.TECHNIQUE:Sonographic | | evaluation of bilateral lower extremity arterial system. Grayscale, color-flow, and | | Doppler spectral analysis. Peak systolic velocities | | (cm/s) / Doppler Waveform:Right:MOBILE EQUIPMENT OPERATOR Prox: 124.8 and triphasicDFA Prox: 69.5 and | | triphasicSFA Prox: 107.7 and triphasicSFA Mid:90.9 and triphasicSFA Distal: 78 and | | triphasicPOP Mid: 65.6 and triphasicTibioperoneal trunk: 45 and biphasicATA Prox: 171.1 | | and triphasicATA Distal: 107 and monophasicPTA Prox: 0 and absentPTA Distal: 28.3 and | | monophasicPERA Prox: 31 and biphasicPeroneal mid: Appears occluded.OSAMR Distal: 88 and | | monophasicDorsalis pedis artery: 48 and monophasicAtherosclerosis in arteries of right | | lower extremity vascular calcifications.The proximal RECORDS ANALYSIS MANAGER appears occluded with distal | | reconstitution via collaterals.Mid peroneal artery appears occluded with distal | | reconstitution via collaterals.Probable hemodynamically significant stenosis in proximal | | JOSE ANGEL.IMPRESSION:1. The proximal RECORDS ANALYSIS MANAGER appears occluded with distal reconstitution via | | collaterals.2. Mid peroneal artery appears occluded with distal reconstitution via | | collaterals.3. Probable hemodynamically significant stenosis in proximal JOSE ANGEL.4. 3 | | vessel monophasic hyperemic distal runoff with monophasic hyperemic flow in dorsalis | | pedis artery. | |DFA Prox: 69.5 and triphasic | |SFA Prox: 107.7 and triphasic | |SFA Mid:90.9 and triphasic | |SFA Distal: 78 and triphasic | |POP Mid: 65.6 and triphasic | |Tibioperoneal trunk: 45 and biphasic | |JOSE ANGEL Prox: 171.1 and triphasic | |JOSE ANGEL Distal: 107 and monophasic | |RECORDS ANALYSIS MANAGER Prox: 0 and absent | |RECORDS ANALYSIS MANAGER Distal: 28.3 and monophasic | |OSMAR Prox: 31 and biphasic | |Peroneal mid: Appears occluded. | |OSMAR Distal: 88 and monophasic | |Dorsalis pedis artery: 48 and monophasic | | | |Atherosclerosis in arteries of right lower extremity vascular calcifications. | | | |The proximal RECORDS ANALYSIS MANAGER appears occluded with distal reconstitution via collaterals. | |Mid peroneal artery appears occluded with distal reconstitution via collaterals. | |Probable hemodynamically significant stenosis in proximal JOSE ANGEL. | | | |IMPRESSION: | |1. The proximal RECORDS ANALYSIS MANAGER appears occluded with distal reconstitution via collaterals. | |2. Mid peroneal artery appears occluded with distal reconstitution via collaterals. | |3. Probable hemodynamically significant stenosis in proximal JOSE ANGEL. | |4. 3 vessel monophasic hyperemic distal runoff with monophasic hyperemic flow in dorsalis pedis artery. | | | | | + + + + + + + | Performing | Address | City/State/Zipcode | Phone Number | | Organization | | | | + + + + + | [facility] | [address] | [place] [address] | | + + + + + Urine microscopic only (02/22/2018 4:16 AM) + + + + + | Component | Value | Ref Range | Performed At | + + + + + | WBC | 0-2Comment: | 0 - 5 /hpf | [facility] | | | | | LABORATORY | + + + + + | RBC | 6-10 | 0 - 2 /hpf | [facility] | | | | | LABORATORY | + + + + + | EPITHELIAL | 0-2 | /lpf | [facility] | | | | | LABORATORY | + + + + + | BACTERIA | NONE SEENComment: | NONE SEEN | [facility] | | | Testing performed at | | LABORATORY | | | [facility], [address] | | | | | [place] | | | | | [address] | | | + + + + + + + + + + | Performing | Address | City/State/Zipcode | Phone Number | | Organization | | | | + + + + + | [facility] | [address] | [place] [address] | [phone] | | LABORATORY | [address] | | | + + + + + Urine culture (02/22/2018 4:16 AM) + + + + + | Component | Value | Ref Range | Performed At | + + + + + | Specimen Description | URINE,CLEAN CATCH | | [facility] | | | | | LABORATORY | + + + + + | CULTURE | NO GROWTH | | [facility] | | | | | LABORATORY | + + + + + + + | Specimen | + + | Urine - Urine, Clean | | Catch | + + + + + + + | Performing | Address | City/State/Zipcode | Phone Number | | Organization | | | | + + + + + | [facility] | [address] | [place] [address] | [phone] | | LABORATORY | [address] | | | + + + + + Urinalysis (reflex to micro) (02/22/2018 4:16 AM) + + + + + | Component | Value | Ref Range | Performed At | + + + + + | COLOR UA | YELLOW | | [facility] | | | | | LABORATORY | + + + + + | CLARITY | CLEAR | | [facility] | | | | | LABORATORY | + + + + + | Specific [place], UA | 1.012 | 1.002 - 1.030 | [facility] | | | | | LABORATORY | + + + + + | LEUKOCYTE ESTERASE | NEGATIVEComment: | NEGATIVE | [facility] | | | | | LABORATORY | + + + + + | NITRITE | NEGATIVE | NEGATIVE | [facility] | | | | | LABORATORY | + + + + + | UROBILINOGEN | 4.0 (H) | <1.1 mg/dL | [facility] | | | | | LABORATORY | + + + + + | PROTEIN | 30 (A) | NEGATIVE mg/dL | [facility] | | | | | LABORATORY | + + + + + | PH,URINE | 6.0 | 5.0 - 8.0 | [facility] | | | | | LABORATORY | + + + + + | BLOOD | NEGATIVE | NEGATIVE | [facility] | | | | | LABORATORY | + + + + + | KETONES | TRACE (A) | NEGATIVE mg/dL | [facility] | | | | | LABORATORY | + + + + + | BILIRUBIN | NEGATIVE | NEGATIVE | [facility] | | | | | LABORATORY | + + + + + | GLUCOSE | NEGATIVEComment: Testing | NEGATIVE mg/dL | [facility] | | | performed at [facility], [address] | | LABORATORY | | | [address], | | | | | [place] [address] | | | + + + + + + + | Specimen | + + | Urine - Urine, Clean | | Catch | + + + + + + + | Performing | Address | City/State/Zipcode | Phone Number | | Organization | | | | + + + + + | [facility] | [address] | [place] [address] | [phone] | | LABORATORY | [address] | | | + + + + + POCT glucose (02/22/2018 4:06 AM) + + + + + | Component | Value | Ref Range | Performed At | + + + + + | GLUCOSE,POC SCREEN | 93Comment: Testing | 65 - 99 mg/dL | [facility] | | | performed at [facility] | | | | | [address];[place], [place] | | | | | [address] | | | + + + + + + + + + + | Performing | Address | City/State/Zipcode | Phone Number | | Organization | | | | + + + + + | [facility] | [address] | [place] [address] | | + + + + + MRSA by PCR (02/22/2018 4:06 AM) + + + + + | Component | Value | Ref Range | Performed At | + + + + + | SOURCE | NARES(NOSE) | | [facility] | + + + + + | MRSA PCR | NEGATIVEComment: Testing | NEGATIVE | [facility] | | | performed at [facility];[address];[place] | | | | | [address] | | | + + + + + + + | Specimen | + + | Nasopharyngeal - | | Nares(Nose) | + + + + + + + | Performing | Address | City/State/Zipcode | Phone Number | | Organization | | | | + + + + + | [facility] | [address] | [place] [address] | | + + + + + catrina Fink (02/22/2018 3:30 AM) + + + + + | Component | Value | Ref Range | Performed At | + + + + + | TANJA, DIRECT | 0.4 (H)Comment: Testing | 0.0 - 0.3 mg/dL | [facility] | | | performed at [facility], [address] | | LABORATORY | | | [facility], | | | | | [place] [address] | | | + + + + + + + + + + | Performing | Address | City/State/Zipcode | Phone Number | | Organization | | | | + + + + + | [facility] | [address] [place] [address] | [place] [address] | [phone] | | LABORATORY | [address] | | | + + + + + Protime-INR (02/22/2018 3:30 AM) + + + + + | Component | Value | Ref Range | Performed At | + + + + + | INR | 1.1Comment: REFERENCE | | [facility] | | | RANGE:0.9 - | | | | | 1.2 NON-ANTICOAGULATE | | | | | D2.0 - 3.0 ALL OTHER | | | | | THERAPEUTIC | | | | | INDICATIONS2.5 - 3.5 | | | | | MECHANICAL HEART VALVES, | | | | | RECURRENT OR SYSTEMIC | | | | | EMBOLISMTesting | | | | | performed at [facility];[address] | | | | | [address];[place], [place] | | | | | [address] | | | + + + + + + + + + + | Performing | Address | City/State/Zipcode | Phone Number | | Organization | | | | + + + + + | [facility] | [address] | [place] [address] | | + + + + + Septic Lactic Acid (02/22/2018 3:30 AM) + + + + + | Component | Value | Ref Range | Performed At | + + + + + | LACTIC ACID | 1.2Comment: Testing | 0.4 - 2.0 mmol/L | [facility] | | | performed at [facility];[address] | [address];[place] | | | | | [address] | | | + + + + + + + + + + | Performing | Address | City/State/Zipcode | Phone Number | | Organization | | | | + + + + + | [facility] | [address] | [place] [address] | | + + + + + aPTT - Q6 starting in 6 hours x 2 (02/22/2018 3:30 AM) + + + + + | Component | Value | Ref Range | Performed At | + + + + + | APTT | 132 ()Comment: PTT | 23 - 32 seconds | [facility] | | | PHONED TO DANNIE SOOD | | | | | AT 0415 BY LJREAD BACK | | | | | RESULTS VERIFIEDTesting | | | | | performed at [facility];[address];[place] | | | | | [address] | | | + + + + + + + | Specimen | + + | Blood | + + + + + + + | Performing | Address | City/State/Zipcode | Phone Number | | Organization | | | | + + + + + | [facility] | [address] | [place] [address] | | + + + + + Glycohemoglobin A1C (02/22/2018 3:30 AM) + + + + + | Component | Value | Ref Range | Performed At | + + + + + | HEMOGLOBIN A1C | 7.9 (H)Comment: The | 4.0 - 6.0 % | [facility] | | | [place] [employer] | | LABORATORY | | | Association considers a | | | | | hemoglobin A1c result of | | | | | <7.0% to be the goal of | | | | | diabetic | | | | | therapy. When results | | | | | are consistently >8.0%, | | | | | the ADA suggests | | | | | reevaluation of the | | | | | treatment | | | | | regimen. The testing | | | | | method used is certified | | | | | traceable to the | | | | | Diabetes Control and | | | | | Complications Trial | | | | | reference method. | | | + + + + + | ESTIMATED AVG | 180Comment: The ADA | mg/dL | [facility] | | GLUCOSE | considers an eAG result | | LABORATORY | | | of LT 154 mg/dL to be | | | | | the goal of diabetic | | | | | therapy. Estimated | | | | | Average Glucose | | | | | calculated from | | | | | hemoglobin A1c by use of | | | | | the ADA recommended | | | | | formula.Testing | | | | | performed at [facility], [address] | | | | | [facility], | | | | | [place] [address] | | | + + + + + + + | Specimen | + + | Blood | + + + + + + + | Performing | Address | City/State/Zipcode | Phone Number | | Organization | | | | + + + + + | [facility] | [address] | [place] [address] | [phone] | | LABORATORY | [address] | | | + + + + + Comprehensive Metabolic Panel (02/22/2018 3:30 AM) + + + + + | Component | Value | Ref Range | Performed At | + + + + + | SODIUM | 137 | 135 - 145 mmol/L | [facility] | | | | | LABORATORY | + + + + + | POTASSIUM | 4.1 | 3.5 - 4.9 mmol/L | [facility] | | | | | LABORATORY | + + + + + | CHLORIDE | 102 | 99 - 109 mmol/L | [facility] | | | | | LABORATORY | + + + + + | CO2 | 25 | 23 - 32 mmol/L | [facility] | | | | | LABORATORY | + + + + + | ANION GAP AGAP | 14 | 5 - 20 mmol/L | [facility] | | | | | LABORATORY | + + + + + | GLUCOSE | 85 | 65 - 99 mg/dL | [facility] | | | | | LABORATORY | + + + + + | BUN | 15 | 8 - 25 mg/dL | [facility] | | | | | LABORATORY | + + + + + | CREATININE | 1.0 | 0.70 - 1.30 mg/dL | [facility] | | | | | LABORATORY | + + + + + | BUN/CREAT | 15 | | [facility] | | | | | LABORATORY | + + + + + | CALCIUM | 8.7 | 8.5 - 10.5 mg/dL | [facility] | | | | | LABORATORY | + + + + + | TOTAL PROTEIN | 6.8 | 6.3 - 8.2 g/dL | [facility] | | | | | LABORATORY | + + + + + | Albumin | 2.4 (L) | 3.6 - 5.0 g/dL | [facility] | | | | | LABORATORY | + + + + + | GLOBULIN | 4.4 | 1.3 - 4.9 g/dL | [facility] | | | | | LABORATORY | + + + + + | A/G | 0.5 (L) | 1.0 - 2.4 | [facility] | | | | | LABORATORY | + + + + + | TBIL | 1.6 (H) | 0.1 - 1.5 mg/dL | [facility] | | | | | LABORATORY | + + + + + | ALK PHOS | 83 | 35 - 115 U/L | [facility] | | | | | LABORATORY | + + + + + | AST | 21 | 10 - 45 U/L | [facility] | | | | | LABORATORY | + + + + + | ALT | 25 | 10 - 65 U/L | [facility] | | | | | LABORATORY | + + + + + | EGFR | >60Comment: GFR <60: | >60 mL/min/1.73m2 | [facility] | | | CHRONIC KIDNEY DISEASE, | | LABORATORY | | | IF FOUND OVER A 3 MONTH | | | | | PERIOD.GFR <15: KIDNEY | | | | | FAILURE.FOR | | | | | AMERICANS, MULTIPLY THE | | | | | CALCULATED GFR BY | | | | | 1.210.This eGFR is | | | | | calculated using the | | | | | MDRD IDMS traceable | | | | | equation. PLEASE NOTE | | | | | NEW CALCULATION | | | | | EFFECTIVE 01/25/2018 | | | | | Testing performed at | | | | | [facility], [address] [place] [address] | | | | | [place], | | | | | [place] [address] | | | + + + + + + + | Specimen | + + | Blood | + + + + + + + | Performing | Address | City/State/Zipcode | Phone Number | | Organization | | | | + + + + + | [facility] | [address] | [place] [address] | [phone] | | LABORATORY | [address] | | | + + + + + Magnesium (02/22/2018 3:30 AM) + + + + + | Component | Value | Ref Range | Performed At | + + + + + | MAGNESIUM | 1.9Comment: Testing | 1.7 - 2.4 mg/dL | [facility] | | | performed at [facility], [address] | | LABORATORY | | | [facility], | | | | | [place] [address] | | | + + + + + + + | Specimen | + + | Blood | + + + + + + + | Performing | Address | City/State/Zipcode | Phone Number | | Organization | | | | + + + + + | [facility] | [address] | [place] [address] | [phone] | | LABORATORY | [address] | | | + + + + + CBC W/Auto Diff (Reflex to Manual) (02/22/2018 3:30 AM) + + + + + | Component | Value | Ref Range | Performed At | + + + + + | WBC | 15.21 (H) | 3.80 - 11.00 K/uL | [facility] | | | | | LABORATORY | + + + + + | RBC | 4.18 (L) | 4.20 - 5.70 M/uL | [facility] | | | | | LABORATORY | + + + + + | HGB | 13.1 (L) | 13.2 - 17.0 g/dL | [facility] | | | | | LABORATORY | + + + + + | HCT | 36.8 (L) | 39.0 - 50.0 % | [facility] | | | | | LABORATORY | + + + + + | MCV | 88.1 | 80.0 - 100.0 fl | [facility] | | | | | LABORATORY | + + + + + | MCH | 31.3 | 27.0 - 34.0 pg | [facility] | | | | | LABORATORY | + + + + + | MCHC | 35.5 | 32.0 - 35.5 g/dL | [facility] | | | | | LABORATORY | + + + + + | RDW SD | 39.4 | 37 - 53 fl | [facility] | | | | | LABORATORY | + + + + + | PLT | 225 | 150 - 400 K/uL | [facility] | | | | | LABORATORY | + + + + + | MPV | 7.7 | fl | [facility] | | | | | LABORATORY | + + + + + | DIFF TYPE | AUTOMATED | | [facility] | | | | | LABORATORY | + + + + + | NEUTROPHILS | 83.85 | % | [facility] | | | | | LABORATORY | + + + + + | LYMPHOCYTES | 9.20 | % | [facility] | | | | | LABORATORY | + + + + + | MONOCYTES | 6.64 | % | [facility] | | | | | LABORATORY | + + + + + | EOSINOPHILS | 0.10 | % | [facility] | | | | | LABORATORY | + + + + + | BASOPHILS | 0.21 | % | [facility] | | | | | LABORATORY | + + + + + | NEUTROPHILS ABS | 12.76 (H) | 1.90 - 7.40 K/uL | [facility] | | | | | LABORATORY | + + + + + | LYMPHOCYTES ABS | 1.40 | 1.00 - 3.90 K/uL | [facility] | | | | | LABORATORY | + + + + + | MONOCYTES ABS | 1.01 (H) | 0.00 - 0.80 K/uL | [facility] | | | | | LABORATORY | + + + + + | EOSINOPHILS ABS | 0.02 | 0.00 - 0.50 K/uL | [facility] | | | | | LABORATORY | + + + + + | BASOPHILS ABS | 0.03Comment: Testing | 0.00 - 0.10 K/uL | [facility] | | | performed at [facility], [address] | | LABORATORY | | | [facility] [address], | | | | | [place] [address] | | | + + + + + + + | Specimen | + + | Blood | + + + + + + + | Performing | Address | City/State/Zipcode | Phone Number | | Organization | | | | + + + + + | [facility] | [address] [place] [address] | [place] [address] | [phone] | | LABORATORY | [address] | | | + + + + + Blood Culture Set 2 (02/21/2018 9:12 PM) + + + + + | Component | Value | Ref Range | Performed At | + + + + + | Specimen Description | BLOOD | | [facility] | | | | | LABORATORY | + + + + + | SPECIAL REQUESTS | RAC | | [facility] | + + + + + | CULTURE | NO GROWTH 6 DAYS | | [facility] | | | | | LABORATORY | + + + + + + + | Specimen | + + | Blood - Blood | + + + + + + + | Performing | Address | City/State/Zipcode | Phone Number | | Organization | | | | + + + + + | [facility] | [address] | [place] [address] | [phone] | | LABORATORY | [address] | | | + + + + + | [facility] | [address] | [place] [address] | | + + + + + Cardiac Panel (02/21/2018 9:00 PM) + + + + + | Component | Value | Ref Range | Performed At | + + + + + | WBC | 16.21 (H) | 3.80 - 11.00 K/uL | [facility] | + + + + + | RBC | 4.73 | 4.20 - 5.70 M/uL | [facility] | + + + + + | HGB | 14.6 | 13.2 - 17.0 g/dL | [facility] | + + + + + | HCT | 41.4 | 39.0 - 50.0 % | [facility] | + + + + + | MCV | 87.6 | 80.0 - 100.0 fl | [facility] | + + + + + | MCH | 30.9 | 27.0 - 34.0 pg | [facility] | + + + + + | MCHC | 35.3 | 32.0 - 35.5 g/dL | [facility] | + + + + + | RDW SD | 39.8 | 37 - 53 fl | [facility] | + + + + + | PLT | 261 | 150 - 400 K/uL | [facility] | + + + + + | MPV | 7.3 | fl | [facility] | + + + + + | DIFF TYPE | AUTOMATED | | [facility] | + + + + + | NEUTROPHILS | 88.10 | % | [facility] | + + + + + | LYMPHOCYTES | 5.56 | % | [facility] | + + + + + | MONOCYTES | 6.11 | % | [facility] | + + + + + | EOSINOPHILS | 0.03 | % | [facility] | + + + + + | BASOPHILS | 0.20 | % | [facility] | + + + + + | NEUTROPHILS ABS | 14.28 (H) | 1.90 - 7.40 K/uL | [facility] | + + + + + | LYMPHOCYTES ABS | 0.90 (L) | 1.00 - 3.90 K/uL | [facility] | + + + + + | MONOCYTES ABS | 0.99 (H) | 0.00 - 0.80 K/uL | [facility] | + + + + + | EOSINOPHILS ABS | 0.00 | 0.00 - 0.50 K/uL | [facility] | + + + + + | BASOPHILS ABS | 0.03 | 0.00 - 0.10 K/uL | [facility] | + + + + + | MORPHOLOGY | RBC AND PLT MORPHOLOGY | | [facility] | | | APPEAR NORMAL | | | + + + + + | Platelet Estimate | ADEQUATE | | [facility] | + + + + + | Diff Comment | SLIDE SCANNED, AGREES | | [facility] | | | WITH AUTOMATED RESULTS. | | | + + + + + | SODIUM | 134 (L) | 135 - 145 mmol/L | [facility] | + + + + + | POTASSIUM | 4.1 | 3.5 - 4.9 mmol/L | [facility] | + + + + + | CHLORIDE | 97 (L) | 99 - 109 mmol/L | [facility] | + + + + + | CO2 | 28 | 23 - 32 mmol/L | [facility] | + + + + + | ANION GAP AGAP | 13 | 5 - 20 mmol/L | [facility] | + + + + + | GLUCOSE | 79 | 65 - 99 mg/dL | [facility] | + + + + + | BUN | 14 | 8 - 25 mg/dL | [facility] | + + + + + | CREATININE | 1.1 | 0.70 - 1.30 mg/dL | [facility] | + + + + + | BUN/CREAT | 13 | | [facility] | + + + + + | CALCIUM | 9.1 | 8.5 - 10.5 mg/dL | [facility] | + + + + + | TOTAL PROTEIN | 7.9 | 6.3 - 8.2 g/dL | [facility] | + + + + + | Albumin | 2.8 (L) | 3.6 - 5.0 g/dL | [facility] | + + + + + | GLOBULIN | 5.1 (H) | 1.3 - 4.9 g/dL | [facility] | + + + + + | A/G | 0.6 (L) | 1.0 - 2.4 | [facility] | + + + + + | TBIL | 2.0 (H) | 0.1 - 1.5 mg/dL | [facility] | + + + + + | ALK PHOS | 93 | 35 - 115 U/L | [facility] | + + + + + | AST | 30 | 10 - 45 U/L | [facility] | + + + + + | ALT | 28 | 10 - 65 U/L | [facility] | + + + + + | EGFR | >60Comment: GFR <60: | >60 mL/min/1.73m2 | [facility] | | | CHRONIC KIDNEY DISEASE, | | | | | IF FOUND OVER A 3 MONTH | | | | | PERIOD.GFR <15: KIDNEY | | | | | FAILURE.FOR | | | | | AMERICANS, MULTIPLY THE | | | | | CALCULATED GFR BY | | | | | 1.210.This eGFR is | | | | | calculated using the | | | | | MDRD IDFL traceable | | | | | equation. PLEASE NOTE | | | | | NEW CALCULATION | | | | | EFFECTIVE 01/25/2018 | | | + + + + + | CPK | 32 (L) | 55 - 400 U/L | [facility] | + + + + + | INR | 1.1Comment: REFERENCE | | [facility] | | | RANGE:0.9 - | | | | | 1.2 NON-ANTICOAGULATE | | | | | D2.0 - 3.0 ALL OTHER | | | | | THERAPEUTIC | | | | | INDICATIONS2.5 - 3.5 | | | | | MECHANICAL HEART VALVES, | | | | | RECURRENT OR SYSTEMIC | | | | | EMBOLISM | | | + + + + + | APTT | 35 (H) | 23 - 32 seconds | [facility] | + + + + + | MMB | <1.0 | 0.5 - 3.6 ng/mL | [facility] | + + + + + | CK-MB Index | UNABLE TO | | [facility] | | | CALCULATEComment: | | | | | Testing performed at | | | | | [facility];[address] | | | | | [address];[place] [address] | | | + + + + + + + + + + | Performing | Address | City/State/Zipcode | Phone Number | | Organization | | | | + + + + + | [facility] | [address] | [place] [address] | | + + + + + Blood Culture Set 1 (02/21/2018 9:00 PM) + + + + + | Component | Value | Ref Range | Performed At | + + + + + | Specimen Description | BLOOD | | [facility] | | | | | [facility] | + + + + + | SPECIAL REQUESTS | LAC LINE | | [facility] | + + + + + | CULTURE | NO GROWTH 6 DAYS | | [facility] | | | | | [facility] | + + + + + + + | Specimen | + + | Blood - Blood | + + + + + + + | Performing | Address | City/State/Zipcode | Phone Number | | Organization | | | | + + + + + | [facility] | [address] | [place] [address] | [phone] | | LABORATORY | [address]vd. | | | + + + + + | [facility] | [address] | [place] [address] | | + + + + + Septic Lactic Acid (02/21/2018 9:00 PM) + + + + + | Component | Value | Ref Range | Performed At | + + + + + | LACTIC ACID | 1.9Comment: Testing | 0.4 - 2.0 mmol/L | [facility] | | | performed at [facility];[address] | | | [address] [facility] | | | | | [address] | | | + + + + + + + + + + | Performing | Address | City/State/Zipcode | Phone Number | | Organization | | | | + + + + + | [facility] | [address] | [place] [address] | | + + + + + Critical Care (02/21/2018 8:25 PM) + + + | Narrative | Performed At | + + + | Rosalva Yates MD 02/21/2018 10:58 PM Critical Care | | | Performed by: ROSALVA YATES Authorized by: ROSALVA YATES | | | Critical care provider statement: Critical care time | | | (minutes): 35 Critical care time was exclusive | | | of: Separately billable procedures and treating other patients | | | and teaching time Critical care was necessary to treat or prevent | | | imminent or life-threatening deterioration of the following | | | conditions: Sepsis and circulatory failure Critical care was | | | time spent personally by me on the following | | | activities: Development of treatment plan with patient or | | | surrogate, discussions with consultants, evaluation of patient's | | | response to treatment, examination of patient, ordering and | | | performing treatments and interventions, pulse oximetry, ordering | | | and review of laboratory studies, re-evaluation of patient's | | | condition, review of old charts and obtaining history from patient | | | or surrogate | | + + + in this encounter Visit Diagnoses Not on filein this encounter Admitting Diagnoses + + | Diagnosis | + + | Cellulitis of right lower extremity | + + | Cellulitis and abscess of leg, except foot | + + | Foot ulcer with necrosis of bone, right (HCC) | + + | Sepsis, due to unspecified organism (HCC) | + + | Gangrene of right foot (HCC) | + + Administered Medications + +--------+---------+------+------+------+ | Medication Order | MAR | Action | Dose | Rate | Site | | | Action | Date | | | | + +--------+---------+------+------+------+ + +---+ | acetaminophen (TYLENOL) | | | suppository 650 mg 650 mg, | | | Rectal, Every 6 Hours PRN, Mild | | | Pain (1-3), Fever, Starting Tue | | | 02/22/18 at 0209 | | + +---+ | | | + +---+ + +-------+ +--------+---+---+ | acetaminophen (TYLENOL) tablet | Given | 02/28/2018 | 650 mg | | | | 650 mg 650 mg, Oral, Every 6 | | 19:45 | | | | | Hours PRN, Mild Pain (1-3), | | PDT | | | | | Fever, Starting 02/22/18 at | | | | | | | 0209 | | | | | | + +-------+ +--------+---+---+ +---+---+ | | | +---+---+ + +-------+ + +---+---+ | amoxicillin-clavulanate | Given | 02/28/2018 | 1 tablet | | | | (AUGMENTIN) 875-125 MG per tablet | | 09:33 | | | | | 1 tablet 1 tablet, Oral, Every | | PDT | | | | | 12 Hours Scheduled (2 times per | | | | | | | day), First dose on 02/27/18 at | | | | | | | 0900, Indications: Skin and Soft | | | | | | | Tissue Abscess | | | | | | + +-------+ + +---+---+ +-------+ + +---+---+ | Given | 02/28/2018 | 1 tablet | | | | | 19:49 | | | | | | PDT | | | | +-------+ + +---+---+ | Given | 03/01/2018 | 1 tablet | | | | | 07:58 | | | | | | PDT | | | | +-------+ + +---+---+ +---+---+ | | | +---+---+ + +-------+ +-------+---+---+ | aspirin chewable tablet 81 mg | Given | 02/27/2018 | 81 mg | | | | 81 mg, Oral, Daily With | | 08:19 | | | | | Breakfast, First dose on Wed | | PDT | | | | | 02/22/18 at 0800 | | | | | | + +-------+ +-------+---+---+ +-------+ +-------+---+---+ | Given | 02/28/2018 | 81 mg | | | | | 09:31 | | | | | | PDT | | | | +-------+ +-------+---+---+ | Given | 03/01/2018 | 81 mg | | | | | 07:59 | | | | | | PDT | | | | +-------+ +-------+---+---+ +---+---+ | | | +---+---+ + +-------+ +-------+---+---+ | atorvastatin (LIPITOR) tablet | Given | | 40 mg | | | | 40 mg 40 mg, Oral, Nightly, | | 8 20:02 | | | | | First dose on Wed02/22/18 at 0300 | | PDT | | | | + +-------+ +-------+---+---+ +-------+ +-------+---+---+ | Given | 02/27/2018 | 40 mg | | | | | 20:23 | | | | | | PDT | | | | +-------+ +-------+---+---+ | Given | 02/28/2018 | 40 mg | | | | | 19:45 | | | | | | PDT | | | | +-------+ +-------+---+---+ +---+---+ | | | +---+---+ + +-------+ +-------+---+---+ | bisacodyl (DULCOLAX) | Given | 02/28/2018 | 10 mg | | | | suppository 10 mg 10 mg, Rectal, | | 14:24 | | | | | Daily PRN, Constipation, | | PDT | | | | | Starting 02/28/18 at 0757 | | | | | | + +-------+ +-------+---+---+ +---+---+ | | | +---+---+ + +-------+ +-------+---+---+ | clopidogrel (PLAVIX) tablet 75 | Given | 02/27/2018 | 75 mg | | | | mg 75 mg, Oral, Daily, First | | 08:19 | | | | | dose on Wed02/22/18 at 0900 | | PDT | | | | + +-------+ +-------+---+---+ +-------+ +-------+---+---+ | Given | 02/28/2018 | 75 mg | | | | | 09:20 | | | | | | PDT | | | | +-------+ +-------+---+---+ | Given | 03/01/2018 | 75 mg | | | | | 07:59 | | | | | | PDT | | | | +-------+ +-------+---+---+ + +---+ | | | + +---+ | famotidine (PEPCID) IVPB 20 mg | | | 20 mg, Intravenous, Administer | | | over 30 Minutes, 2 Times Daily, | | | First dose on Wed02/22/18 at 210 | | + +---+ | | | + +---+ + +-------+ +-------+---+---+ | famotidine (PEPCID) tablet 20 | Given | 02/28/2018 | 20 mg | | | | mg 20 mg, Oral, 2 Times Daily, | | 09:20 | | | | | First dose on Wed02/22/18 at 021 | | PDT | | | | + +-------+ +-------+---+---+ +-------+ +-------+---+---+ | Given | 02/28/2018 | 20 mg | | | | | 19:43 | | | | | | PDT | | | | +-------+ +-------+---+---+ | Given | 03/01/2018 | 20 mg | | | | | 07:59 | | | | | | PDT | | | | +-------+ +-------+---+---+ +---+---+ | | | +---+---+ + +-------+ +--------+---+---+ | heparin (porcine) 5000 unit/mL | Given | | 5,000 | | | | injection PRN, Starting Wed | | 8 20:55 | Units | | | | 02/23/18 at 2055, Intra-op | | PDT | | | | + +-------+ +--------+---+---+ +---+---+ | | | +---+---+ + +-------+ + +---+---+ | HYDROcodone-acetaminophen | Given | 02/28/2018 | 1 tablet | | | | (NORCO) 10-325 MG per tablet 1 | | 04:02 | | | | | tablet 1 tablet, Oral, Every 4 | | PDT | | | | | Hours PRN, Severe Pain (7-10), | | | | | | | Starting [facility] 02/24/18 at 0031 | | | | | | + +-------+ + +---+---+ +-------+ + +---+---+ | Given | 02/28/2018 | 1 tablet | | | | | 22:37 | | | | | | PDT | | | | +-------+ + +---+---+ | Given | 03/01/2018 | 1 tablet | | | | | 07:59 | | | | | | PDT | | | | +-------+ + +---+---+ +---+---+ | | | +---+---+ + +-------+ + +---+---+ | HYDROcodone-acetaminophen | Given | | 1 tablet | | | | (NORCO) 5-325 MG per tablet 1 | | 8 06:32 | | | | | tablet 1 tablet, Oral, Every 4 | | PDT | | | | | Hours PRN, Moderate Pain (4-6), | | | | | | | Starting Wed02/24/18 at 0031 | | | | | | + +-------+ + +---+---+ +-------+ + +---+---+ | Given | 02/28/2018 | 1 tablet | | | | | 11:43 | | | | | | PDT | | | | +-------+ + +---+---+ | Given | 02/28/2018 | 1 tablet | | | | | 17:40 | | | | | | PDT | | | | +-------+ + +---+---+ +---+---+ | | | +---+---+ + +-------+ +---------+---+---+ | insulin lispro (human) | Given | | 1 Units | | | | (HUMALOG) injection 0-3 Units | | 8 21:16 | | | | | 0-3 Units, Subcutaneous, Nightly, | | PDT | | | | | First dose on Wed02/22/18 at | | | | | | | 0300 | | | | | | + +-------+ +---------+---+---+ +-------+ +---------+---+---+ | Given | 02/27/2018 | 1 Units | | | | | 20:30 | | | | | | PDT | | | | +-------+ +---------+---+---+ | Given | 02/28/2018 | 1 Units | | | | | 21:04 | | | | | | PDT | | | | +-------+ +---------+---+---+ +---+---+ | | | +---+---+ + +-------+ +---------+---+---+ | insulin lispro (human) | Given | 02/28/2018 | 1 Units | | | | (HUMALOG) injection 0-6 Units | | 12:30 | | | | | 0-6 Units, Subcutaneous, 3 Times | | PDT | | | | | Daily Before Meals, First dose on | | | | | | | 02/22/18 at 0630 | | | | | | + +-------+ +---------+---+---+ +-------+ +---------+---+---+ | Given | 02/28/2018 | 2 Units | | | | | 17:09 | | | | | | PDT | | | | +-------+ +---------+---+---+ | Given | 03/01/2018 | 1 Units | | | | | 11:46 | | | | | | PDT | | | | +-------+ +---------+---+---+ +---+---+ | | | +---+---+ + +-------+ +-------+---+---+ | labetalol (NORMODYNE) 5 mg/mL | Given | 02/27/2018 | 10 mg | | | | injection 10 mg 10 mg, | | 17:11 | | | | | Intravenous, Every 4 Hours PRN, | | PDT | | | | | Blood Pressure greater than 180, | | | | | | | Starting 02/27/18 at 1703 | | | | | | + +-------+ +-------+---+---+ +-------+ +-------+---+---+ | Given | 03/01/2018 | 10 mg | | | | | 11:45 | | | | | | PDT | | | | +-------+ +-------+---+---+ +---+---+ | | | +---+---+ + +-------+ +--------+---+---+ | LORazepam (ATIVAN) tablet 0.5 | Given | 02/28/2018 | 0.5 mg | | | | mg 0.5 mg, Oral, Every 4 Hours | | 04:02 | | | | | PRN, Anxiety, Starting 02/27/18 | | PDT | | | | | at 0731 | | | | | | + +-------+ +--------+---+---+ +-------+ +--------+---+---+ | Given | 02/28/2018 | 0.5 mg | | | | | 19:45 | | | | | | PDT | | | | +-------+ +--------+---+---+ | Given | 03/01/2018 | 0.5 mg | | | | | 07:59 | | | | | | PDT | | | | +-------+ +--------+---+---+ +---+---+ | | | +---+---+ + +-------+ +-------+---+---+ | losartan (COZAAR) tablet 25 mg | Given | 02/27/2018 | 25 mg | | | | 25 mg, Oral, Daily, First dose | | 08:19 | | | | | on 02/22/18 at 0900 | | PDT | | | | + +-------+ +-------+---+---+ +-------+ +-------+---+---+ | Given | 02/28/2018 | 25 mg | | | | | 09:20 | | | | | | PDT | | | | +-------+ +-------+---+---+ | Given | 03/01/2018 | 25 mg | | | | | 07:58 | | | | | | PDT | | | | +-------+ +-------+---+---+ +---+---+ | | | +---+---+ + +-------+ +--------+---+---+ | magnesium hydroxide (MILK OF | Given | 02/27/2018 | 30 mLs | | | | MAGNESIA) 400 MG/5ML suspension | | 08:19 | | | | | 30 mL 30 mL, Oral, Daily PRN, | | PDT | | | | | Constipation, Starting [facility] | | | | | | | 02/24/18 at 1016 | | | | | | + +-------+ +--------+---+---+ +---+---+ | | | +---+---+ + +-------+ +---------+---+---+ | metoprolol (LOPRESSOR) tablet | Given | 02/28/2018 | 12.5 mg | | | | 12.5 mg 12.5 mg, Oral, 2 Times | | 09:20 | | | | | Daily, First dose on Wed02/22/18 | | PDT | | | | | at 0211 | | | | | | + +-------+ +---------+---+---+ +-------+ +---------+---+---+ | Given | 02/28/2018 | 12.5 mg | | | | | 19:45 | | | | | | PDT | | | | +-------+ +---------+---+---+ | Given | 03/01/2018 | 12.5 mg | | | | | 07:59 | | | | | | PDT | | | | +-------+ +---------+---+---+ +---+---+ | | | +---+---+ + +---------+ +---------+---+ + | nicotine (NICODERM CQ) 21 | Patch | 02/27/2018 | 1 patch | | Left Arm | | MG/24HR patch 1 patch 1 patch, | Applied | 08:19 | | | | | Transdermal, Daily, First dose on | | PDT | | | | | 02/22/18 at 1430 | | | | | | + +---------+ +---------+---+ + + + +---------+---+ + | Patch Applied | 02/28/2018 | 1 patch | | Right | | | 09:34 | | | Arm | | | PDT | | | | + + +---------+---+ + | Patch Applied | 03/01/2018 | 1 patch | | Left Arm | | | 08:00 | | | | | | PDT | | | | + + +---------+---+ + +---+---+ | | | +---+---+ + +-------+ +------+---+---+ | ondansetron (ZOFRAN) injection | Given | | 4 mg | | | | 4 mg 4 mg, Intravenous, Every 6 | | 8 18:33 | | | | | Hours PRN, Nausea, Vomiting, | | PDT | | | | | Starting [facility] 02/22/18 at 0209 | | | | | | + +-------+ +------+---+---+ + +---+ | | | + +---+ | ondansetron (ZOFRAN-ODT) | | | disintegrating tablet 4 mg 4 mg, | | | Oral, Every 6 Hours PRN, Nausea, | | | Vomiting, Starting 02/22/18 | | | at 0209 | | + +---+ | | | + +---+ + +-------+ +------+---+---+ | polyethylene glycol (GLYCOLAX) | Given | | 17 g | | | | packet 17 g 17 g, Oral, Daily | | 8 08:03 | | | | | PRN, Constipation, Starting Tue | | PDT | | | | | 02/22/18 at 0209 | | | | | | + +-------+ +------+---+---+ +-------+ +------+---+---+ | Given | | 17 g | | | | | 8 10:35 | | | | | | PDT | | | | +-------+ +------+---+---+ | Given | 02/27/2018 | 17 g | | | | | 08:18 | | | | | | PDT | | | | +-------+ +------+---+---+ + +---+ | | | + +---+ | sodium chloride (PF) 0.9 % | | | flush 10 mL 10 mL, Intravenous, | | | Every 8 Hours PRN, Line Care, | | | when tolerating oral fluids, | | | Starting 02/25/18 at 2132 | | + +---+ | | | + +---+ + +-------+ +------+---+---+ | zolpidem (AMBIEN) tablet 5 mg | Given | | 5 mg | | | | 5 mg, Oral, Nightly PRN, Sleep, | | 8 23:54 | | | | | may repeat once in 1 hr if | | PDT | | | | | initial dose not effective, | | | | | | | Starting 02/22/18 at 0209 | | | | | | + +-------+ +------+---+---+ +-------+ +------+---+---+ | Given | 02/27/2018 | 5 mg | | | | | 20:23 | | | | | | PDT | | | | +-------+ +------+---+---+ | Given | 02/28/2018 | 5 mg | | | | | 19:43 | | | | | | PDT | | | | +-------+ +------+---+---+ +---+---+ | | | +---+---+ in this encounter
--- OUTSIDE RECORDS SUMMARY | ~2018-04-10 | XMS | Encounter Summary ---
Demographics + + + | Address | [address] | | | [place] [address] | + + + | Home Phone | | + + + | Preferred Language | Unknown | + + + | Marital Status | Single | + + + | Religion Affiliation | Unknown | + + + | Race | Unknown | + + + | Ethnic Group | Unknown | + + + Author + + + | Author | [facility] | + + + | Organization | [facility] | + + + | Address | Unknown | + + + | Phone | Unavailable | + + + Support + + +---------+ + | Name | Relationship | Address | Phone | + + +---------+ + | Megan Walker | ECON | Unknown | | + + +---------+ + Care Team Providers + +------+ + | Care Heat Treater Name | Role | Phone | + +------+ + | Nichoals Claire MD | PCP | | + +------+ + Reason for Visit + + + | Reason | Comments | + + + | Referral | Dr. Coats to do amputation tomorrow. Pt has incisions in right | | | inner thigh as well as recent amputation on 02/25/18 on right | | | foot, and it is dehiscing 3rd digit and left of that is boggy | | | with red drainage. | + + + Auth/Cert +--------+--------+ + + + + | Status | Reason | Specialty | Diagnoses / | Referred By | Referred To | | | | | Procedures | Contact | Contact | +--------+--------+ + + + + | | | General | Diagnoses | | [facility] | | | | Surgery | PVD | | Surgical [address] | | | | | (peripheral | | [address] | | | | | vascular | | [place], [place] | | | | | disease) | | [id number] Phone: | | | | | ([facility]) | | [phone] | | | | | Amputation | | Fax: | | | | | stump | | [phone] | | | | | infection | | | | | | | (HCC) | | | | | | | Procedures | | | | | | | KNEE - | | | | | | | AMPUTATION | | | | | | | BELOW | | | +--------+--------+ + + + + Encounter Details +--------+---------+ + + + | Date | Type | Department | Care Team | Description | +--------+---------+ + + + | 03/31/ | Surgery | Located Within [facility] | Johan Rashid MD | KNEE - AMPUTATION | | 2018 | | [facility] | [address] | BELOW | | | | Operating Room [address] | [place], [place] | | | | | [address] | [address] | | | | | [place] [address] | | | | | | [phone] | | | +--------+---------+ + + + [...] + + + | Blood Pressure | 102/59 | 04/04/2018 11:17 AM PDT | + + + + | Pulse | 84 | 04/04/2018 11:17 AM PDT | + + + + | Temperature | 36.8 C (98.2 F) | 04/04/2018 11:17 AM PDT | + + + + | Respiratory Rate | 16 | 04/04/2018 11:17 AM PDT | + + + + | Oxygen Saturation | 98% | 04/04/2018 11:17 AM PDT | + + + + | Inhaled Oxygen | - | - | | Concentration | | | + + + + | Weight | 96.3 kg (212 lb 4.9 | 04/02/2018 7:32 PM PDT | | | oz) | | + + + + | Height | 160 cm (5' 3") | 03/30/2018 8:12 PM PDT | + + + + | Body Mass Index | 37.61 | 04/02/2018 7:32 PM PDT | + + + + in this encounter Discharge Instructions Brittany Villatoro RN - 04/04/2018Formatting of this note may be different from the original. PT/OT to evaluate and treat. Diet: Diabetic Maintenance After Vascular Surgery: Home Care: Follow any dietary advice given by your doctor. Drink 6-8 glasses of fluid per day (water, juices, tea, soup, etc.) to keep well-hydrate d. You may use acetaminophen (Tylenol) or ibuprofen (Motrin, Advil) to control pain, unless another medicine was prescribed. [NOTE: If you have chronic liver or kidney disease or ever had a stomach ulcer or GI bleeding, talk with your doctor before using these medicines.] Change bandages as directed, or sooner, if they become wet or stained with blood or flui d from the wound. Activity after surgery After surgery, take it easy for the rest of the day. If you had general anesthesia, don t use machinery or power tools, drink alcohol, or make any major decisions for at least th e first24 hours. Don t drive while you are still taking opioid pain medication, and don t drive u.nti l you are able to step firmly on the brake pedal without hesitation. Ask others to help with chores and errands while you recover. Don t lift anything heavier than10 pounds until your doctor says it s OK. Don t mow the lawn, use a vacuum graffiti cleaner, or do other strenuous activities until your doctor says it s okay. Walk as often as you feel able. Continue the coughing and deep breathing exercises that you learned in the hospital. Ask your doctor when you can expect to return to work. Avoid constipation: Eat fruits, vegetables, and whole grains. Drink6 8 glasses of water a day, unless otherwise instructed. Use a laxative or a mild stool softener as instructed by your doctor. Bandage and incision care Right BKA dressing change daily: may wash incision gently with mild soap and water, pat it dry afterwards. Cleanse the incision with alcohol wipe, let it dry, apply ABD dry dressing, wrap with Kerlix wrap. Then apply stump protector. Keep stump protector in place. Fall precaution. Follow-up care Keep follow-up appointments during your recovery. These allow your doctor to check your pro robyn and make sure you re healing well. You may also need to have your stitches, georges, or bandage removed. During office visits, tell your doctor if you have any new symptoms. An d be sure to ask any questions you have. When to seek medical care Call your doctor immediately if you have any of the following: A large amount of swelling or bruising (some testicular swelling and bruising is common) Bleeding Increasing pain Increased redness or drainage of the incision Utemh278.5F (38.5C) or higher Trouble urinating Nausea or vomiting [id number] [employer]. [address] [place] [address], [place] [address]. All righ ts reserved. This information is not intended as a substitute for professional medical care. Always follow your healthcare professional's instructions. in this encounter Medications at Time of Discharge + + +---------+---------+ + + | Medication | Sig. | Disp. | Refills | Start | End Date | | | | | | Date | | + + +---------+---------+ + + | Amino | Take 30 mLs by mouth | | | | | | Acids-Protein | daily. | | | | | | Hydrolys (PRO-STAT) | | | | | | | LIQD | | | | | | + + +---------+---------+ + + | atorvastatin | Take 1 tablet by | 30 | 11 | 02/29/20 | | | (LIPITOR) 40 MG | mouth nightly. | tablet | | 18 | 9 | | tablet | | | | | | + + +---------+---------+ + + | bisacodyl | Place 10 mg rectally | | | | | | (DULCOLAX) 10 MG | once. | | | | | | suppository | | | | | | + + +---------+---------+ + + | gabapentin | Take 1 capsule by | 90 | 11 | 04/04/20 | | | (NEURONTIN) 300 MG | mouth 3 (three) | capsule | | 18 | 9 | | capsule | times daily. | | | | | + + +---------+---------+ + + | glimepiride | Take 1 tablet by | 30 | 11 | 03/15/20 | | | (AMARYL) 2 MG tablet | mouth every morning. | tablet | | 18 | 9 | + + +---------+---------+ + + | JANUMET XR 50-500 | Take 1 tablet by | | | 08/27/20 | | | MG TB24 | mouth every morning. | | | 17 | | + + +---------+---------+ + + | losartan (COZAAR) | Take 25 mg by mouth | | | 07/23/20 | | | 25 MG tablet | daily. | | | 17 | | + + +---------+---------+ + + | magnesium | Take 5 mLs by mouth | | | | | | hydroxide (MILK OF | daily as needed for | | | | | | MAGNESIA) 400 MG/5ML | Constipation. | | | | | | suspension | | | | | | + + +---------+---------+ + + | metoprolol | Take 0.5 tablets by | 30 | 11 | 02/29/20 | | | (LOPRESSOR) 25 MG | mouth 2 (two) times | tablet | | 18 | 9 | | tablet | daily. | | | | | + + +---------+---------+ + + | Multiple | Take 1 tablet by | | | | | | Vitamins-Minerals | mouth daily. | | | | | | (MULTIVITAMIN WITH | | | | | | | MINERALS) tablet | | | | | | + + +---------+---------+ + + | oxyCODONE | Take 1 tablet by | 30 | 0 | 08//20 | | | (ROXICODONE) 15 MG | mouth every 4 (four) | tablet | | 18 | | | immediate release | hours as needed (8 | | | | | | tablet | to 10). | | | | | + + +---------+---------+ + + | oxycodone 10 MG | Take 1 tablet by | 30 | 0 | 20 | | | tablet | mouth every 4 (four) | tablet | | 18 | | | | hours as needed (6 | | | | | | | to 7). | | | | | + + +---------+---------+ + + as of this encounter Progress Notes Johan Rashid MD - 04/03/2018 12:13 PM PDTFormatting of this note may be different from the original. [facility] Service: Vascular Surgery Progress Note Hospital Day: LOS: 4 days Post-Op Day: 3 Days Post-Op SUBJECTIVE Patient Summary: Arsenio Daniel a 57 y.o.malemalepatient withhistory of hypertension, diabetes mellitus type 2, andperipheral arterial disease with clinical manif estations of rightlower extremity non-healing ulcerations of the right 2nd toe amputation site with extensive gangrene. The patient was seen in the vascular surgery initially in 2017 for non-healing bilateral heel wound. He reports that the wounds began after weari ramiro new pair of boots,then developedstaph infection. He underwent right leg angiogram with atherectomy and balloon angioplasty on 10/20/2017at the [facility]. His bilateral heel wounds were healed. He has diabetic neuropathy with diminished sensation in bilateral feet and right leg below the knee level. His blood sugar was not wel l controlled, he didnot check his blood sugar daily. He takes aspirin daily but not taking P lavix, unsure when he stopped Plavix.The patient's risk factors for atherosclerotic occlusiv e disease include: chewing tobacco use: 2 cans per day, hypertension and diabetes. The patient developed an open ulcer at the tip of his right 2nd toe. Due to his neuropathy, by the time he noted on 02/14/2018, the wound already had bone exposure. The patient was see n by his dater assembler Dr. Walker and was prescribed oral antibiotics. He eventually underwent right 2nd toe amputation on 02/18/2018. However, the right 2nd toe amputation has not been h ealing well and developed gangrene at the amputation site with erythema and tenderness exten ding to the mid calf.The patient underwent right leg angiogram with atherectomy of right s uperficial femoral artery and popliteal artery, balloon angioplasty of right superficial fem oral artery and right popliteal artery, balloon angioplasty of right anterior tibial artery and peroneal artery on 02/22/2018. Following endovascular intervention, completion angiogram showed a patent right anterior tibial artery as the main vessel runoff to the dorsal foot, p atent peroneal artery from proximal to mid leg. The posterior tibial artery was occluded fro m the origin and reconstituted at the distal leg. 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 Packing Room Worker Dr. Garcia consulted, he discussed with patient regarding TMA and BKA, the patient opted for TMA. The patient neededright popliteal artery to posterior tibial artery bypass to improv e posterior circulation prior to TMA. He underwent Rightbelow knee popliteal artery to pos terior tibialartery bypass with ipsilateral non-reversed great saphenous vein graft and [facility] posterior tibialartery endarterectomy on 02/23/2018. He presented on 03/11/2018 with occ luded right leg bypass graft and underwent percutaneous mechanical thrombectomy of right pop liteal to posterior tibial artery bypass, angioplasty of right posterior tibial artery arter y, right leg bypass graft and popliteal artery. He was started on anticoagulation due to the high risk bypass graft. The patient's TMA stump continues to deteriorate with significant t issue necrosis and infection despite aggressive revascularization and antibiotic treatment. Due to the irreversible necrosis tissue loss and infection ofhisright lower extremity, v ascular surgery was consulted to evaluate the patient forrightbelow knee amputation. Patient underwent right below knee amputation on 03/31/2018. Events Overnight: Patient fell this morning when transfer, no injury to right A remedios . Surgical dressing changed today. Pain well controlled. Scheduled Medications atorvastatin 40 mg Oral Nightly gabapentin 100 mg Oral TID glimepiride 2 mg Oral QAM insulin lispro (human) 0-10 Units Subcutaneous TID AC insulin lispro (human) 0-5 Units Subcutaneous Nightly losartan 25 mg Oral Daily metoprolol 12.5 mg Oral BID multivitamin with minerals 1 tablet Oral Daily nicotine 1 patch Transdermal Daily Continuous Infusions dextrose PRN Medications acetaminophen OR acetaminophen, bisacodyl, calcium carbonate, dextrose, dextrose, dextr ose, fentaNYL OR fentaNYL, glucagon, glucagon, LORazepam, magnesium hydroxide, [MAR Hold ] morphine, ondansetron OR ondansetron, ondansetron OR ondansetron, oxyCODONE OR oxyCODONE OR oxyCODONE, polyethylene glycol, zolpidem OBJECTIVE Vital Signs: BP 107/69 (BP Location: Right upper arm) | Pulse 103 | Temp 99.2 F (37.3 C) (Oral) | Resp 18 | Ht 1.6 m (5' 3") | Wt 96.3 kg (212 lb 4.9 oz) | SpO2 97% | BMI 37.61 kg/m Constitutional: Well nourished, no signs of distress HENT: Non icteric sclerae, oropharynx clear. Normocephalic and atraumatic. Cardiovascular: Normal rate, regular rhythm Pulmonary/Chest: No respiratory distress. Abdominal: Soft. No abdominal distension or tenderness. Musculoskeletal: Normal range of motion. Extremities: Left leg and foot no wound. S/p right BKA. Neurological: Heis alert and oriented. VASCULAR: Palpable femoral pulse bilaterally, palpable popliteal pulse bilaterally. Palpabl e Left Dorsalis Pedis Pulse. Stump protector in place at right BKA site. Right medial leg by pass incision sit is healing well without signs of infection. Right BKA stump incision is we ll approximated, no drainage or erythema noted. DATA CBC: Lab Results Component Value Date WBC 7.79 04/03/2018 RBC 3.26 (L) 04/03/2018 HGB 9.7 (L) 04/03/2018 HCT 27.7 (L) 04/03/2018 MCV 84.8 04/03/2018 MCH 29.6 04/03/2018 MCHC 34.9 04/03/2018 RDW 42.0 04/03/2018 PLT 237 04/03/2018 MPV 7.3 04/03/2018 DIFFTYPE AUTOMATED 04/03/2018 BMP: Lab Results Component Value Date NA 139 04/02/2018 K 4.2 04/02/2018 K 4.1 02/23/2018 CL 104 04/02/2018 CO2 27 04/02/2018 ANIONGAP 12 04/02/2018 GLUF 139 (H) 04/02/2018 BUN 18 04/02/2018 CREATININE 0.8 04/02/2018 BCR 23 04/02/2018 CA 8.1 (L) 04/02/2018 EGFR >60 04/02/2018 PROBLEM LIST Principal Problem: Transmetatarsal amputation stump infection Active Problems: PVD (peripheral vascular disease) Coagulopathy on Coumadin 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 Right BKA dressing changed today, incision is healing well. Continue to have stump protect or in place, fall precaution. PT/OT evaluation and treatment. Case management consultation f or SNF or short term rehab placement. Follow up in vascular surgery clinic in 2 weeks. Code Status: Full Code CHANTEL Amos MD 04/03/2018Garfield Ball MD-R1 - 04/03/2018 5:13 AM PDTFormatting of this note ma y be different from the original. [facility] Service: Hospitalist Progress Note Hospital Day: LOS: 4 days Post-Op Day: 3 Days Post-Op SUBJECTIVE Patient Summary: The patient is a 57 y.o.malewith significant past medical history of hypertension, hype rlipidemia,diabetes mellitus type II, history of peripheral vascular disease status post right popliteal to PTAbypass and right transmetatarsal amputation on 02/25/18 and wasdi scharged on 03/15/18. Patient was readmitted on 03/30/2018 for an infected stump requiring ruiz rgical intervention. [facility] [place] for rehabilitation, when his right foot amputation stump site begangetting necrotic andgangrenous with report of erythema and ch ills but no fever. Dr. Rashid (vascular surgery)was contacted by phone who recommended the bipin ent go to the ED. Infectiousdisease wasconsulted andrecommended startingthe patient on Unasyn. MRSA screen was negative hence he was not started on Vancomycin. Patient underwen t a Right below knee amputation on 03/31/2018. Antibiotics were discontinued after surgery a nd patient's pain was well controlled on oxycodone and fentanyl. Blood cultures remained neg ative. Events Overnight: Patient remained afebrile with BGs and BPs within goals. Pain is being reasonably well-cont rolled. Scheduled Medications atorvastatin 40 mg Oral Nightly gabapentin 100 mg Oral TID glimepiride 2 mg Oral QAM insulin lispro (human) 0-10 Units Subcutaneous TID AC insulin lispro (human) 0-5 Units Subcutaneous Nightly losartan 25 mg Oral Daily metoprolol 12.5 mg Oral BID multivitamin with minerals 1 tablet Oral Daily nicotine 1 patch Transdermal Daily Continuous Infusions dextrose PRN Medications acetaminophen OR acetaminophen, bisacodyl, calcium carbonate, dextrose, dextrose, dextr ose, fentaNYL OR fentaNYL, glucagon, glucagon, LORazepam, magnesium hydroxide, [MAR Hold ] morphine, ondansetron OR ondansetron, ondansetron OR ondansetron, oxyCODONE OR oxyCODONE OR oxyCODONE, polyethylene glycol, zolpidem OBJECTIVE Vital Signs: BP 128/75 | Pulse 100 | Temp 98.5 F (36.9 C) (Oral) | Resp 16 | Ht 1.6 m (5' 3") | Wt 96.3 kg (212 lb 4.9 oz) | SpO2 98% | BMI 37.61 kg/m Temp: [98.3 F (36.8 C)-99.1 F (37.3 C)] 98.5 F (36.9 C) (04/03 339) BP: (111-128)/(63-80) 128/75 (04/03 339) Heart Rate: [99-110] 100 (04/03 339) Resp: [16-20] 16 (04/03 339) SpO2: [95 %-99 %] 98 % (04/03 339) Weight: [96.3 kg (212 lb 4.9 oz)] 96.3 kg (212 lb 4.9 oz) (04/02 1932) Physical Exam Constitutional: He is oriented to person, place, and time and well-developed, well-nourishe d, and in no distress. No distress. HENT: Head: Normocephalic and atraumatic. Eyes: EOM are normal. Neck: Normal range of motion. Neck supple. Cardiovascular: Normal rate and regular rhythm. Pulmonary/Chest: Effort normal and breath sounds normal. No respiratory distress. Abdominal: Soft. Bowel sounds are normal. He exhibits distension (obese). There is no tende rness. Musculoskeletal: He exhibits no edema. R BKA stump covered with compression device. Neurological: He is alert and oriented to person, place, and time. Skin: Skin is warm and dry. Psychiatric: Mood and affect normal. Vitals reviewed. 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 Dr Rashid plans to examine wound on with plan for possible discharge on Wednesday. - Pain management per orders with Oxycodone and Fentanyl - Gabapentin 100 mg TID (increase if pain not well controlled) Peripheral Vascular Disease/Coagulopathy Patient was on ASA, Plavix and Coumadin prior to surgery.Per vascular surgery recommendatio ns anticoagulation has been stopped. Will not restart anticoagulation per vascular surgery. Anemia Likely postsurgical no obvious sources of bleeding at this time. Patient advised to check s tool caliber as he has not had a bowel movement in days to assess. Transfusion not indicated at this time. We will continue to monitor - Continue multivitamins as prescribed - CBC Diabetes mellitus type II Well controlled, last A1c on 03/13/18 was 6.8%. - Continue glimepiride - Moderate Insulin sliding scale Hypertension Blood pressure stable on home meds - Continue home metoprolol and losartan Hyperlipidemia Continue home Atorvastatin. Tobacco abuse disorder Patient has been extensively counseled about cessation and discussed resources available to assist in process. Patient stated understanding. - Nicotine patch DVT prophylaxis: On hold for now, consider starting prophylactic dose. Diet: Diabetic Disposition: Inpatient anticipate discharge on 04/04/18 Code Status: Full Code Garfield Ball MD-R1 04/03/2018 Associated attestation - Caroline Yuan MD - 04/06/2018 8:41 PM PDTI have seen and examin ed the patient and agree with resident's note. Pain controlled. Dr. Rashid to examine wound on Wednesday. Johan Rashid MD - 04/02/2018 11:38 AM PDTFormatting of this note may be different f rom the original. [facility] Service: Vascular Surgery Progress Note Hospital Day: LOS: 3 days Post-Op Day: 2 Days Post-Op SUBJECTIVE Patient Summary: Arsenio Walker is a 57 y.o. male malepatient with history of hype rtension, diabetes mellitus type 2, andperipheral arterial disease with clinical manifesta tions of rightlower extremity non-healing ulcerations of the right 2nd toe amputation site with extensive gangrene. The patient was seen in the vascular surgery initially in September 2017 for non-healing bilateral heel wound. He reports that the wounds began after wearing a new pair of boots,then developedstaph infection. He underwent right leg angiogram with atherectomy and balloon angioplasty on 10/20/2017at the [facility]. His bilateral heel wounds were healed. He has diabetic neuropathy with diminished sen sation in bilateral feet and right leg below the knee level. His blood sugar was not well co ntrolled, he didnot check his blood sugar daily. He takes aspirin daily but not taking Plavi x, unsure when he stopped Plavix.The patient's risk factors for atherosclerotic occlusive di sease include: chewing tobacco use: 2 cans per day, hypertension and diabetes. The patient developed an open ulcer at the tip of his right 2nd toe. Due to his neuropathy, by the time he noted on 02/14/2018, the wound already had bone exposure. The patient was see n by his dater assembler Dr. Walker and was prescribed oral antibiotics. He eventually underwent right 2nd toe amputation on 02/18/2018. However, the right 2nd toe amputation has not been h ealing well and developed gangrene at the amputation site with erythema and tenderness exten ding to the mid calf.The patient underwent right leg angiogram with atherectomy of right s uperficial femoral artery and popliteal artery, balloon angioplasty of right superficial fem oral artery and right popliteal artery, balloon angioplasty of right anterior tibial artery and peroneal artery on 02/22/2018. Following endovascular intervention, completion angiogram showed a patent right anterior tibial artery as the main vessel runoff to the dorsal foot, p atent peroneal artery from proximal to mid leg. The posterior tibial artery was occluded fro m the origin and reconstituted at the distal leg. 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 Packing Room Worker Dr. Garcia consulted, he discussed with patient regarding TMA and BKA, the patient opted for TMA. The patient needed right popliteal artery to posterior tibial artery bypass to improve posterior circulation prior to TMA. He underwent Rightbelow knee popliteal artery to post erior tibialartery bypass with ipsilateral non-reversed great saphenous vein graft and Rig ht posterior tibialartery endarterectomy on 02/23/2018. He presented on 03/11/2018 with occl uded right leg bypass graft and underwent percutaneous mechanical thrombectomy of right popl iteal to posterior tibial artery bypass, angioplasty of right posterior tibial artery artery , right leg bypass graft and popliteal artery. He was started on anticoagulation due to the high risk bypass graft. The patient's TMA stump continues to deteriorate with significant ti ssue necrosis and infection despite aggressive revascularization and antibiotic treatment. D ue to the irreversible necrosis tissue loss and infection of his right lower extremity, [facility] ular surgery was consulted to evaluate the patient for right below knee amputation. Patient underwent right below knee amputation on 03/31/2018. Events Overnight: Patient is doing well. He has some right hip pain, applying ice pac k to the area. Pain is adequately controlled. Scheduled Medications atorvastatin 40 mg Oral Nightly gabapentin 100 mg Oral TID glimepiride 2 mg Oral QAM insulin lispro (human) 0-10 Units Subcutaneous TID AC insulin lispro (human) 0-5 Units Subcutaneous Nightly losartan 25 mg Oral Daily metoprolol 12.5 mg Oral BID multivitamin with minerals 1 tablet Oral Daily nicotine 1 patch Transdermal Daily sodium chloride (PF) 10 mL Intravenous Q8H Continuous Infusions dextrose PRN Medications acetaminophen OR acetaminophen, acetaminophen OR acetaminophen, bisacodyl, calcium carbonate, dextrose, dextrose, dextrose, fentaNYL OR fentaNYL, glucagon, glucagon, LORaz epam, magnesium hydroxide, [MAR Hold] morphine, ondansetron OR ondansetron, ondansetron OR ondansetron, oxyCODONE OR oxyCODONE OR oxyCODONE, polyethylene glycol, zolpid em OBJECTIVE Vital Signs: BP 113/68 (BP Location: Right upper arm) | Pulse 99 | Temp 98.3 F (36.8 C) (Oral) | Resp 20 | Ht 1.6 m (5' 3") | Wt 95.3 kg (210 lb 1.6 oz) | SpO2 99% | BMI 37.22 kg/m Constitutional: Well nourished, no signs of distress HENT: Non icteric sclerae, oropharynx clear. Normocephalic and atraumatic. Cardiovascular: Normal rate, regular rhythm Pulmonary/Chest: No respiratory distress. Abdominal: Soft. No abdominal distension or tenderness. Musculoskeletal: Normal range of motion. Extremities: Left leg and foot no wound. Right BKA. Neurological: He is alert and oriented. VASCULAR: Palpable femoral pulse bilaterally, palpable popliteal pulse bilaterally. Palpabl e Left Dorsalis Pedis Pulse. Stump protector in place at right BKA site. DATA CBC: Lab Results Component Value Date WBC 8.89 04/02/2018 RBC 3.30 (L) 04/02/2018 HGB 9.6 (L) 04/02/2018 HCT 27.7 (L) 04/02/2018 MCV 83.9 04/02/2018 MCH 29.2 04/02/2018 MCHC 34.8 04/02/2018 RDW 42.4 04/02/2018 PLT 214 04/02/2018 MPV 7.4 04/02/2018 DIFFTYPE AUTOMATED 04/02/2018 BMP: Lab Results Component Value Date NA 139 04/02/2018 K 4.2 04/02/2018 K 4.1 02/23/2018 CL 104 04/02/2018 CO2 27 04/02/2018 ANIONGAP 12 04/02/2018 GLUF 139 (H) 04/02/2018 BUN 18 04/02/2018 CREATININE 0.8 04/02/2018 BCR 23 04/02/2018 CA 8.1 (L) 04/02/2018 EGFR >60 04/02/2018 PROBLEM LIST Principal Problem: Transmetatarsal Amputation stump infection Active Problems: PVD (peripheral vascular disease) Coagulopathy 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 We plan to change patient's surgical dressings on post operative day 3, tomorrow. Continue to have stump protector in place, fall precaution. PT/OT evaluation and treatment. Case man agement consultation for SNF placement. Code Status: Full Code CHANTEL Amos MD 04/02/2018NoAgnes leyva MD-R2 - 04/02/2018 6:09 AM PDTFormatting of this note may be di fferent from the original. [facility] Service: Hospitalist Progress Note Hospital Day: LOS: 3 days Post-Op Day: 2 Days Post-Op SUBJECTIVE Patient Summary: The patient is a 57 y.o.malewith significant past medical histor y of hypertension, hyperlipidemia,diabetes mellitus type II, history of peripheral vascula r disease status post right popliteal to PTAbypass and right transmetatarsal amputation on 02/25/18 and wasdischarged on 03/15/18. Patient was readmitted on 03/30/2018 for an infe cted stump requiring surgical intervention. [facility] [place] [facility], when his right foot amputation stump site begangetting necrotic andgangrenous with report of erythema and ch ills but no fever. Dr. Rashid (vascular surgery)was contacted by phone who recommended the bipin ent go to the ED. Infectiousdisease wasconsulted andrecommended startingthe patient on Unasyn. MRSA screen was negative hence he was not started on Vancomycin. Patient underwen t a Right below knee amputation on 03/31/2018. Antibiotics were discontinued after surgery a nd patient's pain was well controlled on oxycodone and fentanyl. Blood cultures remained neg ative. Events Overnight: Patient remained afebrile with blood glucose and blood pressure well controlled. Continues to have pain but it is better controlled with current regimen, heat a nd cold packwarm and cold packs. Scheduled Medications atorvastatin 40 mg Oral Nightly gabapentin 100 mg Oral TID glimepiride 2 mg Oral QAM insulin lispro (human) 0-10 Units Subcutaneous TID AC insulin lispro (human) 0-5 Units Subcutaneous Nightly losartan 25 mg Oral Daily metoprolol 12.5 mg Oral BID multivitamin with minerals 1 tablet Oral Daily nicotine 1 patch Transdermal Daily sodium chloride (PF) 10 mL Intravenous Q8H Continuous Infusions dextrose PRN Medications acetaminophen OR acetaminophen, acetaminophen OR acetaminophen, bisacodyl, calcium carbonate, dextrose, dextrose, dextrose, fentaNYL OR fentaNYL, glucagon, glucagon, LORaz epam, magnesium hydroxide, [MAR Hold] morphine, ondansetron OR ondansetron, ondansetron OR ondansetron, oxyCODONE OR oxyCODONE OR oxyCODONE, polyethylene glycol, zolpid em OBJECTIVE Vital Signs: BP 115/66 (BP Location: Right upper arm) | Pulse 100 | Temp 98.4 F (36.9 C) (Oral) | Resp 18 | Ht 1.6 m (5' 3") | Wt 95.3 kg (210 lb 1.6 oz) | SpO2 96% | BMI 37.22 kg/m General Appearance: Alert and cooperative, and appears to be in no acute distress. HEENNT: Normocephalic and atraumatic. EOMI. Hearing grossly intact. No nasal discharge. No JVD present. No tracheal deviation. Cardiovascular: Rhythm is regular. No murmurs appreciated. Peripheral pulses intact. Pulmonary/Chest: Lungs are clear to auscultation bilaterally. Effort is normal. Normal oj th sounds. Abdominal: Soft, nontender, nondistended. Normoactive bowel sounds. No guarding or rebound tenderness. Extremities: Right BKA stump not visible in boot. Left BKA stump wrapped in gauze. Neurological: CN II-XII grossly intact. Oriented to person, place, and time. Skin: Skin is warm and dry. No rash noted. DATA CBC: Lab Results Component Value Date WBC 8.89 04/02/2018 RBC 3.30 (L) 04/02/2018 HGB 9.6 (L) 04/02/2018 HCT 27.7 (L) 04/02/2018 MCV 83.9 04/02/2018 MCH 29.2 04/02/2018 MCHC 34.8 04/02/2018 RDW 42.4 04/02/2018 PLT 214 04/02/2018 MPV 7.4 04/02/2018 DIFFTYPE AUTOMATED 04/02/2018 CMP: Lab Results Component Value Date NA 139 04/02/2018 K 4.2 04/02/2018 K 4.1 02/23/2018 CL 104 04/02/2018 CO2 27 04/02/2018 ANIONGAP 12 04/02/2018 GLUF 139 (H) 04/02/2018 BUN 18 04/02/2018 CREATININE 0.8 04/02/2018 BCR 23 04/02/2018 CA 8.1 (L) 04/02/2018 PROT 7.3 03/31/2018 ALB 3.0 (L) 03/31/2018 GLOB 4.3 03/31/2018 BILITOT 0.8 03/31/2018 ALP 103 03/31/2018 AST 20 03/31/2018 ALT 29 03/31/2018 EGFR >60 04/02/2018 Magnesium: Lab Results Component Value Date MG 2.1 03/31/2018 Phosphorus: Lab Results Component Value Date PHOS 3.7 03/12/2018 PT/INR: Lab Results Component Value Date INR 1.1 04/01/2018 PROBLEM LIST Principal Problem: Amputation stump infection (HCC) Active Problems: PVD (peripheral vascular disease) (HCC) Coagulopathy (HCC) 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 Dr Rashid plans to examine wound on with plan for possible discharge on Wednesday. - Pain management per orders - Oxycodone and Fentanyl - Gabapentin 100 mg TID with room for increase if pain not controlled. Peripheral Vascular Disease/Coagulopathy Patient was on ASA, Plavix and Coumadin prior to surgery.Per vascular surgery recommendatio ns anticoagulation has been stopped. Need to restart will be addressed by vascular surgery. Anemia Likely postsurgical no obvious sources of bleeding at this time. Patient advised to check s tool caliber as he has not had a bowel movement in days to assess. Transfusion not indicated at this time. We will continue to monitor - Continue multivitamins as prescribed - Repeat CBC in the morning Diabetes mellitus type II Well controlled, last A1c on 03/13/18 was 6.8%. - Continue glimepiride - Moderate Insulin sliding scale Hypertension Blood pressure stable on home meds - Continue metoprolol and losartan at home dose Hyperlipidemia Continue Atorvastatin. Tobacco abuse disorder Patient has been extensively counseled about cessation and discussed resources available to assist in process. Patient stated understanding. - Nicotine patch DVT prophylaxis:On hold for now, consider starting prophylactic dose. Diet:Diabetic Disposition: Inpatient anticipate discharge on 04/04/18 Code Status: Full Code Agnes Allison MD-R2 04/02/2018 Associated attestation - Caroline Yuan MD - 04/03/2018 9:01 AM PDTI have seen and examin ed the patient's agree with resident's note. Will continue pain management. Dressing change tomorrow. CM to assist in SNF placement. [place] Ball MD-R1 - 04/01/2018 5:50 AM PDTFormatting of this note may be different from the original. [facility] Service: Hospitalist Progress Note Hospital Day: LOS: 2 days Post-Op Day: 1 Day Post-Op SUBJECTIVE Patient Summary: The patient is a 57 y.o.malewith significant past medical history of HTN, HLD, diabetes mellitus type II, history of PVD who recently had right popliteal to PTAbypass and right transmetatarsal amputation on 02/25/18. He wasdischarged on 03/15. [facility] [place] for [facility], when his right foot a mputation stump site began getting necrotic and gangrenous with report of erythema and chill s but no fever. Dr. Rashid was contacted by phone who recommended the patient go to the ED. Inf ectious disease was consulted and recommended starting the patient on Unasyn and send MRSA s creen - if positive add vancomycin. I discussed the case with Dr. Rashid who plans to go surger y in the morning and will keep patient NPO after midnight. Patient complained of mild pain i n the right foot. Otherwise denied any fever, chest pain, shortness of breath, nausea, vomit ing, constipation, diarrhea, headache, or dizziness. Pt went for BKA on 03/31. Events Overnight: A lot of pain after surgery yesterday. Pt rested comfortably after getting pain meds. Scheduled Medications ampicillin-sulbactam 3 g Intravenous Q6H atorvastatin 40 mg Oral Nightly glimepiride 2 mg Oral QAM insulin lispro (human) 0-10 Units Subcutaneous TID AC insulin lispro (human) 0-5 Units Subcutaneous Nightly losartan 25 mg Oral Daily metoprolol 12.5 mg Oral BID multivitamin with minerals 1 tablet Oral Daily nicotine 1 patch Transdermal Daily sodium chloride (PF) 10 mL Intravenous Q8H Continuous Infusions dextrose PRN Medications acetaminophen OR acetaminophen, acetaminophen OR acetaminophen, bisacodyl, dextrose , dextrose, dextrose, fentaNYL OR fentaNYL, glucagon, glucagon, HYDROcodone-acetaminophe n, HYDROcodone-acetaminophen OR HYDROcodone-acetaminophen, LORazepam, magnesium hydroxid e, [MAR Hold] morphine, ondansetron OR ondansetron, ondansetron OR ondansetron, poly ethylene glycol, zolpidem OBJECTIVE Vital Signs: BP 139/78 (BP Location: Right upper arm) | Pulse 104 | Temp 97.8 F (36.6 C) (Oral) | Resp 16 | Ht 1.6 m (5' 3") | Wt 95.3 kg (210 lb 1.6 oz) | SpO2 99% | BMI 37.22 kg/m Temp: [97.8 F (36.6 C)-98.7 F (37.1 C)] 97.8 F (36.6 C) (04/01 259) BP: (108-169)/(57-100) 139/78 (04/01 259) Heart Rate: [88-123] 104 (04/01 259) Resp: [11-27] 16 (04/01 259) SpO2: [95 %-100 %] 99 % (04/01 259) FiO2 : [26 %-91 %] 86 % (03/31 1436) Physical Exam Constitutional: He is oriented to person, place, and time and well-developed, well-nourishe d, and in no distress. No distress. HENT: Head: Normocephalic and atraumatic. Right Ear: External ear normal. Left Ear: External ear normal. Eyes: EOM are normal. Right eye exhibits no discharge. Left eye exhibits no discharge. Neck: Normal range of motion. Neck supple. Cardiovascular: Normal rate, regular rhythm and normal heart sounds. Pulmonary/Chest: Effort normal and breath sounds normal. No respiratory distress. Abdominal: Soft. Bowel sounds are normal. He exhibits no distension. There is no tenderness . Musculoskeletal: He exhibits tenderness (BKA stump). Lymphadenopathy: He has no cervical adenopathy. Neurological: He is alert and oriented to person, place, and time. Skin: Skin is warm and dry. L BKA stump wrapped in dressing and compression Psychiatric: Affect and mood appropriate. Still reports seeing "metcalf", but knows they are not there. Vitals reviewed. DATA CBC: Lab Results Component Value Date WBC 8.01 04/01/2018 RBC 3.50 (L) 04/01/2018 HGB 10.2 (L) 04/01/2018 HCT 29.3 (L) 04/01/2018 MCV 83.7 04/01/2018 MCH 29.3 04/01/2018 MCHC 35.0 04/01/2018 RDW 41.1 04/01/2018 PLT 220 04/01/2018 MPV 7.6 04/01/2018 DIFFTYPE MANUAL 04/01/2018 BMP: Lab Results Component Value Date NA 137 04/01/2018 K 4.4 04/01/2018 K 4.1 02/23/2018 CL 102 04/01/2018 CO2 24 04/01/2018 ANIONGAP 15 04/01/2018 GLUF 283 (H) 04/01/2018 BUN 25 04/01/2018 CREATININE 0.9 04/01/2018 BCR 28 04/01/2018 CA 8.0 (L) 04/01/2018 EGFR >60 04/01/2018 PROBLEM LIST Principal Problem: Amputation stump infection (HCC) Active Problems: PVD (peripheral vascular disease) (HCC) Coagulopathy (HCC) 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 If MRSA nasal swab results positive, will and Vancomycin. Will go for surgery today. - Unasyn per ID recs; maybe d/c today - Post-surgical pain meds/bowel regimen Peripheral Vascular Disease Patient is on ASA, Plavix and Coumadin for his PVD. Coumadin was reversed with Vit K this m orning with INR coming down from 3.0 to 1.7. - Restart Coumadin, ASA, Plavix per Surgery recs Diabetes mellitus type II Sugars have been higher post-op. - Continue glimepiride - ISS, increase to moderate Hypertension Bps stable on home meds - Continue home metoprolol and losartan Rama Kelly MD, have reviewed this note. [place] Ball MD-R1 04/01/2018 Associated attestation - Caroline Yuan MD - 04/02/2018 7:10 AM PDTI have seen and examin ed the patient and agree with the resident's note. Ordered PT/OT. Discontinued abx.Joyce Reese RD - 03/31/2018 11:34 AM PDTFormatting of this note may be different from the origi nal. 03/31/18 1130 Subjective Timepoint Admit (non-healing wound) Pt c/o 57 yo M admitted for amputation stump infection. Pt came from rehab facility. Met wi th pt who reports a good appetite and was hungry at time of visit. NPO for surgery today. Nutrition-Focused Physical Findings Extremities, Muscles and Bones +2 RLE edema Digestive System (Mouth to Rectum) missing teeth Skin R forefoot amputation wound Anthropometrics Weight change Pt is 169% IBW with BMI 37.2 Biochemical data, medical tests, and procedures reviewed Biochemical data, medical tests, and procedures reviewed Reviewed Estimated Energy Needs Total Energy Estimated Needs [id number] kcal Method for Estimating Needs 25-30 kcal/kg ABW (66.1 kg) Estimated Protein Needs Total Protein Estimated Needs 79-119 g Method for Estimating Needs 1.2-1.8 g/kg ABW Recommendations Recommended energy needs Advance diet as tolerated to general diet after surgery. Encourage PO intake with adequate protein for healing. Offer supplements if appetite/PO is poor. Nutritional Risk Nutritional risk Moderate Follow up date 04/05/[address] - 03/31/2018 6:22 AM PDTFormatting of this note may be different from the original. [facility] Service: Hospitalist Progress Note Hospital Day: LOS: 1 day SUBJECTIVE Patient Summary: The patient is a 57 y.o. male with significant past medical history of HTN, HLD, diabetes m ellitus type II, history of PVD who recently had right popliteal to [employer] bypass and right tra nsmetatarsal amputation on 02/25/18. He was discharged on 03/15. He was in an assisted care facility in [place] for rehabilitation, when his right foot am putation stump site began getting necrotic and gangrenous with report of erythema and chills but no fever. Dr. Rashid was contacted by phone who recommended the patient go to the ED. Infe ctious disease was consulted and recommended starting the patient on Unasyn and send MRSA sc reen - if positive add vancomycin. I discussed the case with Dr. Rashid who plans to go surgery in the morning and will keep patient NPO after midnight. Patient complained of mild pain in the right foot. Otherwise denied any fever, chest pain, shortness of breath, nausea, vomiti ng, constipation, diarrhea, headache, or dizziness. Events Overnight: Pt slept well, but was very hungry. Otherwise, no acute events overnight. Scheduled Medications ampicillin-sulbactam 3 g Intravenous Q6H atorvastatin 40 mg Oral Nightly glimepiride 2 mg Oral QAM insulin lispro (human) 0-10 Units Subcutaneous TID AC insulin lispro (human) 0-5 Units Subcutaneous Nightly losartan 25 mg Oral Daily metoprolol 12.5 mg Oral BID nicotine 1 patch Transdermal Daily sodium chloride (PF) 10 mL Intravenous Q8H Continuous Infusions dextrose PRN Medications acetaminophen OR acetaminophen, dextrose, dextrose, dextrose, glucagon, glucagon, HYDRO codone-acetaminophen, LORazepam, morphine, ondansetron OR ondansetron, polyethylene glyc ol, zolpidem OBJECTIVE Vital Signs: BP 130/77 (BP Location: Right upper arm) | Pulse 84 | Temp 97.9 F (36.6 C) (Oral) | Resp 16 | Ht 1.6 m (5' 3") | Wt 95.3 kg (210 lb 1.6 oz) | SpO2 98% | BMI 37.22 kg/m Temp: [97.7 F (36.5 C)-98.8 F (37.1 C)] 97.9 F (36.6 C) (03/31 326) BP: (126-146)/(71-82) 130/77 (03/31 326) Heart Rate: [84-97] 84 (03/31 326) Resp: [16-20] 16 (03/31 326) SpO2: [97 %-100 %] 98 % (03/31 326) Height: [160 cm (5' 3")] 160 cm (5' 3") (03/30 2012) Weight: [95.3 kg (210 lb)-95.3 kg (210 lb 1.6 oz)] 95.3 kg (210 lb 1.6 oz) (03/30 2012) BMI (Calculated): [37.3] 37.3 (03/30 2012) Physical Exam Constitutional: He is oriented to person, place, and time and well-developed, well-nourishe d, and in no distress. No distress. HENT: Head: Normocephalic and atraumatic. Right Ear: External ear normal. Left Ear: External ear normal. Eyes: Pupils are equal, round, and reactive to light. EOM are normal. Neck: Normal range of motion. Neck supple. Cardiovascular: Normal rate, regular rhythm and normal heart sounds. Pulmonary/Chest: Effort normal and breath sounds normal. No respiratory distress. Abdominal: Soft. Bowel sounds are normal. He exhibits distension (obese). Musculoskeletal: Normal range of motion. Right foot: There is tenderness. Feet: Neurological: He is alert and oriented to person, place, and time. Psychiatric: Mood and affect normal. DATA Results for orders placed or performed during the hospital encounter of 03/30/18 (from the past 24 hour(s)) CBC with differential Collection Time: 03/30/18 5:12 PM Result Value Ref Range WBC 8.04 3.80 - 11.00 K/uL RBC 4.38 4.20 - 5.70 M/uL HGB 12.8 (L) 13.2 - 17.0 g/dL HCT 37.3 (L) 39.0 - 50.0 % MCV 85.0 80.0 - 100.0 fl MCH 29.1 27.0 - 34.0 pg MCHC 34.3 32.0 - 35.5 g/dL RDW SD 42.4 37 - 53 fl PLT 255 150 - 400 K/uL MPV 7.2 fl DIFF TYPE AUTOMATED NEUTROPHILS 73.88 % LYMPHOCYTES 16.51 % MONOCYTES 7.01 % EOSINOPHILS 1.56 % BASOPHILS 1.04 % NEUTROPHILS ABS 5.94 1.90 - 7.40 K/uL LYMPHOCYTES ABS 1.33 1.00 - 3.90 K/uL MONOCYTES ABS 0.56 0.00 - 0.80 K/uL EOSINOPHILS ABS 0.13 0.00 - 0.50 K/uL BASOPHILS ABS 0.08 0.00 - 0.10 K/uL Comprehensive metabolic panel Collection Time: 03/30/18 5:12 PM Result Value Ref Range SODIUM 139 135 - 145 mmol/L POTASSIUM 4.3 3.5 - 4.9 mmol/L CHLORIDE 103 99 - 109 mmol/L CO2 26 23 - 32 mmol/L ANION GAP AGAP 15 5 - 20 mmol/L GLUCOSE 95 65 - 99 mg/dL BUN 20 8 - 25 mg/dL CREATININE 0.84 0.70 - 1.30 mg/dL BUN/CREAT 24 CALCIUM 9.3 8.5 - 10.5 mg/dL TOTAL PROTEIN 8.0 6.3 - 8.2 g/dL Albumin 3.1 (L) 3.6 - 5.0 g/dL GLOBULIN 4.9 1.3 - 4.9 g/dL A/G 0.6 (L) 1.0 - 2.4 TBIL 0.6 0.1 - 1.5 mg/dL ALK PHOS 98 35 - 115 U/L AST 19 10 - 45 U/L ALT 29 10 - 65 U/L EGFR >60 >60 mL/min/1.73m2 Protime Collection Time: 03/30/18 5:12 PM Result Value Ref Range INR 3.0 aPTT Collection Time: 03/30/18 5:12 PM Result Value Ref Range APTT 55 (H) 23 - 32 seconds C-reactive protein Collection Time: 03/30/18 5:12 PM Result Value Ref Range CRP 3.1 (H) <0.5 mg/dL Sedimentation Rate (ESR) Collection Time: 03/30/18 5:12 PM Result Value Ref Range ESR 67 (H) 0 - 20 mm/Hr Troponin I Collection Time: 03/30/18 5:12 PM Result Value Ref Range TROPONIN I <0.020 0.00 - 0.10 ng/mL MRSA by PCR Collection Time: 03/30/18 5:39 PM Result Value Ref Range SOURCE NARES(NOSE) MRSA PCR NEGATIVE NEGATIVE EKG Collection Time: 03/30/18 7:05 PM Result Value Ref Range Ventricular Rate 87 BPM Atrial Rate 87 BPM P-R Interval 134 ms QRS Duration 84 ms Q-T Interval 354 ms QTC Calculation (Bezet) 425 ms Calculated P [place] 9 degrees Calculated R [place] 53 degrees Calculated T [place] 53 degrees Diagnosis Normal sinus rhythm Normal ECG No previous ECGs available This ECG contains Unconfirmed Interpretation Statements. See ED Record for Physician Inter pretation. Confirmed by MUSE READ ONLY, -COMPUTER ([id number]), commercial production editor Nahid John ([id number]) on 03/31/2018 3:26:17 AM POCT glucose Collection Time: 03/30/18 9:12 PM Result Value Ref Range GLUCOSE,POC SCREEN 77 65 - 99 mg/dL POCT glucose Collection Time: 03/31/18 6:07 AM Result Value Ref Range GLUCOSE,POC SCREEN 89 65 - 99 mg/dL Type and screen Collection Time: 03/31/18 6:13 AM Result Value Ref Range ABO/RH(D) A POSITIVE ANTIBODY SCREEN NEGATIVE ARM BAND NUMBER [id number] Testing performed at [facility];[address] [place] [address];[place] [address] CBC w/auto diff (reflex to manual) Collection Time: 03/31/18 6:13 AM Result Value Ref Range WBC 7.95 3.80 - 11.00 K/uL RBC 4.23 4.20 - 5.70 M/uL HGB 12.4 (L) 13.2 - 17.0 g/dL HCT 35.4 (L) 39.0 - 50.0 % MCV 83.7 80.0 - 100.0 fl MCH 29.3 27.0 - 34.0 pg MCHC 35.0 32.0 - 35.5 g/dL RDW SD 42.0 37 - 53 fl PLT 224 150 - 400 K/uL MPV 7.4 fl DIFF TYPE AUTOMATED NEUTROPHILS 73.59 % LYMPHOCYTES 16.66 % MONOCYTES 7.76 % EOSINOPHILS 1.18 % BASOPHILS 0.81 % NEUTROPHILS ABS 5.85 1.90 - 7.40 K/uL LYMPHOCYTES ABS 1.33 1.00 - 3.90 K/uL MONOCYTES ABS 0.62 0.00 - 0.80 K/uL EOSINOPHILS ABS 0.09 0.00 - 0.50 K/uL BASOPHILS ABS 0.07 0.00 - 0.10 K/uL Comprehensive metabolic panel Collection Time: 03/31/18 6:13 AM Result Value Ref Range SODIUM 139 135 - 145 mmol/L POTASSIUM 4.2 3.5 - 4.9 mmol/L CHLORIDE 104 99 - 109 mmol/L CO2 27 23 - 32 mmol/L ANION GAP AGAP 12 5 - 20 mmol/L GLUCOSE 93 65 - 99 mg/dL BUN 24 8 - 25 mg/dL CREATININE 0.8 0.70 - 1.30 mg/dL BUN/CREAT 30 CALCIUM 8.9 8.5 - 10.5 mg/dL TOTAL PROTEIN 7.3 6.3 - 8.2 g/dL Albumin 3.0 (L) 3.6 - 5.0 g/dL GLOBULIN 4.3 1.3 - 4.9 g/dL A/G 0.7 (L) 1.0 - 2.4 TBIL 0.8 0.1 - 1.5 mg/dL ALK PHOS 103 35 - 115 U/L AST 20 10 - 45 U/L ALT 29 10 - 65 U/L EGFR >60 >60 mL/min/1.73m2 Magnesium Collection Time: 03/31/18 6:13 AM Result Value Ref Range MAGNESIUM 2.1 1.7 - 2.4 mg/dL Protime-INR Collection Time: 03/31/18 6:13 AM Result Value Ref Range INR 1.7 POCT glucose Collection Time: 03/31/18 11:30 AM Result Value Ref Range GLUCOSE,POC SCREEN 94 65 - 99 mg/dL PROBLEM LIST Principal Problem: Amputation stump infection (HCC) Active Problems: PVD (peripheral vascular disease) (HCC) Coagulopathy (HCC) 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 If MRSA nasal swab results positive, will and Vancomycin. Will go for surgery today. - NPO - Unasyn Peripheral Vascular Disease Patient is on ASA, Plavix and Coumadin for his PVD. Coumadin was reversed with Vit K this m orning with INR coming down from 3.0 to 1.7. - Hold Coumadin, ASA, Plavix for surgery - F/u with Surgery about when to restart after surgery. Diabetes mellitus type II Sugars have been well controlled in the hospital so far. - Continue glimepiride - ISS Mild Hypertension Bps stable on home meds - Continue home metoprolol and losartan I Agnes Kelly MD, have reviewed this note. Garfield Ball MD-R1 03/31/2018 Associated attestation - Caroline Yuan MD - 04/01/2018 8:41 AM PDTI have seen and examin ed the patient and agree with the resident's note. 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 Continue abx, management per ID. Melly Baron, [facility] - 03/30/2018 8:52 PM PDTRenal Dosing Monitoring: Arsenio Walker 57 y.o. male Pharmacy dosing for renal function per Dr. Gomez Serum creatinine: 0.84 mg/dL 03/30/18 1712 Estimated creatinine clearance: 101.6 mL/min Plan per protocol: No medications need adjustment at this time Pharmacy will continue to monitor changes in medication orders and renal function and will adjust accordingly. 03/30/2018 8:52 PM Pharmacist: Melly Baron in this encounter Plan of Treatment +--------+---------+ + + + | Date | Type | Specialty | Care Team | Description | +--------+---------+ + + + | 04/18/ | Office | Vascular Surgery | Chris Duggan DNP | | | 2017 | Visit | | [address] | | | | | | [place] | | | | | | [id number] | | | | | | | | +--------+---------+ + + + as of this encounter Procedures + +--------+ + + + | Procedure Name | Priori | Date/Time | Associated Diagnosis | Comments | | | ty | | | | + +--------+ + + + | POCT GLUCOSE | Routin | 04/04/2018 | | Results for this | | | e | 11:21 AM | | procedure are in the | | | | PDT | | results section. | + +--------+ + + + | POCT GLUCOSE | Routin | 04/04/2018 | | Results for this | | | e | 5:59 AM | | procedure are in the | | | | PDT | | results section. | + +--------+ + + + | CBC W/AUTO DIFF | Routin | 04/04/2018 | | Results for this | | (REFLEX TO MANUAL) | e | 4:24 AM | | procedure are in the | | | | PDT | | results section. | + +--------+ + + + | POCT GLUCOSE | Routin | 04/03/2018 | | Results for this | | | e | 9:30 PM | | procedure are in the | | | | PDT | | results section. | + +--------+ + + + | POCT GLUCOSE | Routin | 04/03/2018 | | Results for this | | | e | 4:27 PM | | procedure are in the | | | | PDT | | results section. | + +--------+ + + + | POCT GLUCOSE | Routin | 04/03/2018 | | Results for this | | | e | 11:57 AM | | procedure are in the | | | | PDT | | results section. | + +--------+ + + + | POCT GLUCOSE | Routin | 04/03/2018 | | Results for this | | | e | 5:33 AM | | procedure are in the | | | | PDT | | results section. | + +--------+ + + + | CBC W/AUTO DIFF | Routin | 04/03/2018 | | Results for this | | (REFLEX TO MANUAL) | e | 4:20 AM | | procedure are in the | | | | PDT | | results section. | + +--------+ + + + | POCT GLUCOSE | Routin | 04/02/2018 | | Results for this | | | e | 9:21 PM | | procedure are in the | | | | PDT | | results section. | + +--------+ + + + | POCT GLUCOSE | Routin | 04/02/2018 | | Results for this | | | e | 4:05 PM | | procedure are in the | | | | PDT | | results section. | + +--------+ + + + | POCT GLUCOSE | Routin | 04/02/2018 | | Results for this | | | e | 11:41 AM | | procedure are in the | | | | PDT | | results section. | + +--------+ + + + | POCT GLUCOSE | Routin | 04/02/2018 | | Results for this | | | e | 5:24 AM | | procedure are in the | | | | PDT | | results section. | + +--------+ + + + | CBC W/AUTO DIFF | Routin | 04/02/2018 | | Results for this | | (REFLEX TO MANUAL) | e | 4:33 AM | | procedure are in the | | | | PDT | | results section. | + +--------+ + + + | BASIC METABOLIC | Routin | 04/02/2018 | | Results for this | | PANEL | e | 4:33 AM | | procedure are in the | | | | PDT | | results section. | + +--------+ + + + | POCT GLUCOSE | Routin | 04/01/2018 | | Results for this | | | e | 9:45 PM | | procedure are in the | | | | PDT | | results section. | + +--------+ + + + | POCT GLUCOSE | Routin | 04/01/2018 | | Results for this | | | e | 4:14 PM | | procedure are in the | | | | PDT | | results section. | + +--------+ + + + | POCT GLUCOSE | Routin | 04/01/2018 | | Results for this | | | e | 11:10 AM | | procedure are in the | | | | PDT | | results section. | + +--------+ + + + | PROTIME-INR | Routin | 04/01/2018 | | Results for this | | | e | 9:23 AM | | procedure are in the | | | | PDT | | results section. | + +--------+ + + + | POCT GLUCOSE | Routin | 04/01/2018 | | Results for this | | | e | 5:52 AM | | procedure are in the | | | | PDT | | results section. | + +--------+ + + + | CBC W/AUTO DIFF | Routin | 04/01/2018 | | Results for this | | (REFLEX TO MANUAL) | e | 4:23 AM | | procedure are in the | | | | PDT | | results section. | + +--------+ + + + | BASIC METABOLIC | Routin | 04/01/2018 | | Results for this | | PANEL | e | 4:23 AM | | procedure are in the | | | | PDT | | results section. | + +--------+ + + + | PATHOLOGY HISTOLOGY | Routin | 04/01/2018 | | Results for this | | - TISSUE | e | 12:00 AM | | procedure are in the | | | | PDT | | results section. | + +--------+ + + + | POCT GLUCOSE | Routin | 03/31/2018 | | Results for this | | | e | 9:45 PM | | procedure are in the | | | | PDT | | results section. | + +--------+ + + + | POCT GLUCOSE | Routin | 03/31/2018 | | Results for this | | | e | 2:41 PM | | procedure are in the | | | | PDT | | results section. | + +--------+ + + + | KNEE - AMPUTATION | | 03/31/2018 | PAD | | | BELOW | | 11:45 AM | | | | | | PDT | | | + +--------+ + + + | POCT GLUCOSE | Routin | 03/31/2018 | | Results for this | | | e | 11:30 AM | | procedure are in the | | | | PDT | | results section. | + +--------+ + + + | PROTIME-INR | Routin | 03/31/2018 | | Results for this | | | e - AM | 6:13 AM | | procedure are in the | | | | PDT | | results section. | + +--------+ + + + | CBC W/AUTO DIFF | Routin | 03/31/2018 | | Results for this | | (REFLEX TO MANUAL) | e | 6:13 AM | | procedure are in the | | | | PDT | | results section. | + +--------+ + + + | TYPE AND SCREEN | Routin | 03/31/2018 | | Results for this | | | e | 6:13 AM | | procedure are in the | | | | PDT | | results section. | + +--------+ + + + | MAGNESIUM | Routin | 03/31/2018 | | Results for this | | | e - AM | 6:13 AM | | procedure are in the | | | | PDT | | results section. | + +--------+ + + + | COMPREHENSIVE | Routin | 03/31/2018 | | Results for this | | METABOLIC PANEL | e - AM | 6:13 AM | | procedure are in the | | | | PDT | | results section. | + +--------+ + + + | POCT GLUCOSE | Routin | 03/31/2018 | | Results for this | | | e | 6:07 AM | | procedure are in the | | | | PDT | | results section. | + +--------+ + + + | POCT GLUCOSE | Routin | 03/30/2018 | | Results for this | | | e | 9:12 PM | | procedure are in the | | | | PDT | | results section. | + +--------+ + + + | EKG 12 LEAD UNIT | Routin | 03/30/2018 | | Results for this | | PERFORMED | e | 7:05 PM | | procedure are in the | | | | PDT | | results section. | + +--------+ + + + | BLOOD CULTURE, SET 2 | STAT | 03/30/2018 | | Results for this | | | | 6:16 PM | | procedure are in the | | | | PDT | | results section. | + +--------+ + + + | MRSA BY PCR | Timed | 03/30/2018 | | Results for this | | | | 5:39 PM | | procedure are in the | | | | PDT | | results section. | + +--------+ + + + | TROPONIN I | STAT | 03/30/2018 | | Results for this | | | | 5:12 PM | | procedure are in the | | | | PDT | | results section. | + +--------+ + + + | APTT | STAT | 03/30/2018 | | Results for this | | | | 5:12 PM | | procedure are in the | | | | PDT | | results section. | + +--------+ + + + | SEDIMENTATION RATE, | STAT | 03/30/2018 | | Results for this | | AUTOMATED | | 5:12 PM | | procedure are in the | | | | PDT | | results section. | + +--------+ + + + | PROTIME-INR | STAT | 03/30/2018 | | Results for this | | | | 5:12 PM | | procedure are in the | | | | PDT | | results section. | + +--------+ + + + | CBC W/AUTO DIFF | STAT | 03/30/2018 | | Results for this | | (REFLEX TO MANUAL) | | 5:12 PM | | procedure are in the | | | | PDT | | results section. | + +--------+ + + + | C-REACTIVE PROTEIN | STAT | 03/30/2018 | | Results for this | | | | 5:12 PM | | procedure are in the | | | | PDT | | results section. | + +--------+ + + + | COMPREHENSIVE | STAT | 03/30/2018 | | Results for this | | METABOLIC PANEL | | 5:12 PM | | procedure are in the | | | | PDT | | results section. | + +--------+ + + + | BLOOD CULTURE, SET 1 | STAT | 03/30/2018 | | Results for this | | | | 5:11 PM | | procedure are in the | | | | PDT | | results section. | + +--------+ + + + in this encounter Results POCT glucose (04/04/2018 11:21 AM) + + + + + | Component | Value | Ref Range | Performed At | + + + + + | GLUCOSE,POC SCREEN | 306 (H)Comment: Testing | 65 - 99 mg/dL | [facility] | | | performed at [facility];[address] | [address] [facility];[place], [place] | | | | | [address] | | | + + + + + + + + + + | Performing | Address | City/State/Zipcode | Phone Number | | Organization | | | | + + + + + | [facility] | [address] | [place] [address] | | + + + + + POCT glucose (04/04/2018 5:59 AM) + + + + + | Component | Value | Ref Range | Performed At | + + + + + | GLUCOSE,POC SCREEN | 127 (H)Comment: Testing | 65 - 99 mg/dL | [facility] | | | performed at [facility];[address] | | | | | [address];[place] | | | | | [address] | | | + + + + + + + + + + | Performing | Address | City/State/Zipcode | Phone Number | | Organization | | | | + + + + + | [facility] | [address] | [place] [address] | | + + + + + CBC w/auto diff (reflex to manual) (04/04/2018 4:24 AM) + + + + + | Component | Value | Ref Range | Performed At | + + + + + | WBC | 8.34 | 3.80 - 11.00 K/uL | [facility] | | | | | LABORATORY | + + + + + | RBC | 3.27 (L) | 4.20 - 5.70 M/uL | [facility] | | | | | LABORATORY | + + + + + | HGB | 9.7 (L) | 13.2 - 17.0 g/dL | [facility] | | | | | LABORATORY | + + + + + | HCT | 27.6 (L) | 39.0 - 50.0 % | [facility] | | | | | LABORATORY | + + + + + | MCV | 84.5 | 80.0 - 100.0 fl | [facility] | | | | | LABORATORY | + + + + + | MCH | 29.7 | 27.0 - 34.0 pg | [facility] | | | | | LABORAT[facility] | + + + + + | MCHC | 35.2 | 32.0 - 35.5 g/dL | [facility] | | | | | LABORAT[facility] | + + + + + | RDW SD | 42.0 | 37 - 53 fl | [facility] | | | | | LABORATORY | + + + + + | PLT | 230 | 150 - 400 K/uL | [facility] | | | | | LABORATORY | + + + + + | MPV | 7.6 | fl | [facility] | | | | | LABORATORY | + + + + + | DIFF TYPE | AUTOMATED | | [facility] | | | | | LAB[facility]ATORY | + + + + + | NEUTROPHILS | 76.64 | % | [facility] | | | | | LAB[facility] | + + + + + | LYMPHOCYTES | 13.91 | % | [facility] | | | | | LAB[facility]AT[facility] | + + + + + | MONOCYTES | 7.41 | % | [facility] | | | | | LABORATORY | + + + + + | EOSINOPHILS | 1.65 | % | [facility] | | | | | LABORAT[facility] | + + + + + | BASOPHILS | 0.39 | % | [facility] | | | | | LABORATORY | + + + + + | NEUTROPHILS ABS | 6.39 | 1.90 - 7.40 K/uL | [facility] | | | | | LAB[facility]ATORY | + + + + + | LYMPHOCYTES ABS | 1.16 | 1.00 - 3.90 K/uL | [facility] | | | | | LABORATORY | + + + + + | MONOCYTES ABS | 0.62 | 0.00 - 0.80 K/uL | [facility] | | | | | LABORATORY | + + + + + | EOSINOPHILS ABS | 0.14 | 0.00 - 0.50 K/uL | [facility] | | | | | LABORATORY | + + + + + | BASOPHILS ABS | 0.03Comment: Testing | 0.00 - 0.10 K/uL | [facility] | | | performed at [facility], [address] | | LABORATORY | | | [address], | | | | | [place] [address] | | | + + + + + + + | Specimen | + + | Blood | + + + + + + + | Performing | Address | City/State/Zipcode | Phone Number | | Organization | | | | + + + + + | [facility] | [address] | [place] [address] | [phone] | | LABORATORY | [address] | | | + + + + + POCT glucose (04/03/2018 9:30 PM) + + + + + | Component | Value | Ref Range | Performed At | + + + + + | GLUCOSE,POC SCREEN | 146 (H)Comment: Testing | 65 - 99 mg/dL | [facility] | | | performed at [facility];[address] | | | | | [address];[place], [place] | | | | | [address] | | | + + + + + + + + + + | Performing | Address | City/State/Zipcode | Phone Number | | Organization | | | | + + + + + | [facility] | [address] | [place] [address] | | + + + + + POCT glucose (04/03/2018 4:27 PM) + + + + + | Component | Value | Ref Range | Performed At | + + + + + | GLUCOSE,POC SCREEN | 165 (H)Comment: Testing | 65 - 99 mg/dL | [facility] | | | performed at [facility];[address] | | | | | [address];[place], [place] | | | | | [address] | | | + + + + + + + + + + | Performing | Address | City/State/Zipcode | Phone Number | | Organization | | | | + + + + + | [facility] | [address] | [place] [address] | | + + + + + POCT glucose (04/03/2018 11:57 AM) + + + + + | Component | Value | Ref Range | Performed At | + + + + + | GLUCOSE,POC SCREEN | 113 (H)Comment: Testing | 65 - 99 mg/dL | [facility] | | | performed at [facility];[address] | | | | | [address];[place] | | | | | [address] | | | + + + + + + + + + + | Performing | Address | City/State/Zipcode | Phone Number | | Organization | | | | + + + + + | [facility] | [address] | [place] [address] | | + + + + + POCT glucose (04/03/2018 5:33 AM) + + + + + | Component | Value | Ref Range | Performed At | + + + + + | GLUCOSE,POC SCREEN | 101 (H)Comment: Testing | 65 - 99 mg/dL | [facility] | | | performed at [facility];[address] | | | | | [address];[place] | | | | | [address] | | | + + + + + + + + + + | Performing | Address | City/State/Zipcode | Phone Number | | Organization | | | | + + + + + | [facility] | [address] | [place] [address] | | + + + + + CBC w/auto diff (reflex to manual) (04/03/2018 4:20 AM) + + + + + | Component | Value | Ref Range | Performed At | + + + + + | WBC | 7.79 | 3.80 - 11.00 K/uL | [facility] | | | | | LABORAT[facility] | + + + + + | RBC | 3.26 (L) | 4.20 - 5.70 M/uL | [facility] | | | | | LABORATORY | + + + + + | HGB | 9.7 (L) | 13.2 - 17.0 g/dL | [facility] | | | | | LABORATORY | + + + + + | HCT | 27.7 (L) | 39.0 - 50.0 % | [facility] | | | | | LABORATORY | + + + + + | MCV | 84.8 | 80.0 - 100.0 fl | [facility] | | | | | LABORATORY | + + + + + | MCH | 29.6 | 27.0 - 34.0 pg | [facility] | | | | | LABORATORY | + + + + + | MCHC | 34.9 | 32.0 - 35.5 g/dL | [facility] | | | | | LABORATORY | + + + + + | RDW SD | 42.0 | 37 - 53 fl | [facility] | | | | | LABORATORY | + + + + + | PLT | 237 | 150 - 400 K/uL | [facility] | | | | | LABORATORY | + + + + + | MPV | 7.3 | fl | [facility] | | | | | LABORATORY | + + + + + | DIFF TYPE | AUTOMATED | | [facility] | | | | | LAB[facility]ATORY | + + + + + | NEUTROPHILS | 72.27 | % | [facility] | | | | | LABORATORY | + + + + + | LYMPHOCYTES | 17.01 | % | [facility] | | | | | LABORATORY | + + + + + | MONOCYTES | 8.42 | % | [facility] | | | | | LABORATORY | + + + + + | EOSINOPHILS | 1.57 | % | [facility] | | | | | LABORATORY | + + + + + | BASOPHILS | 0.73 | % | [facility] | | | | | LABORATORY | + + + + + | NEUTROPHILS ABS | 5.63 | 1.90 - 7.40 K/uL | [facility] | | | | | LABORATORY | + + + + + | LYMPHOCYTES ABS | 1.32 | 1.00 - 3.90 K/uL | [facility] | | | | | LABORATORY | + + + + + | MONOCYTES ABS | 0.66 | 0.00 - 0.80 K/uL | [facility] | | | | | LABORATORY | + + + + + | EOSINOPHILS ABS | 0.12 | 0.00 - 0.50 K/uL | [facility] | | | | | LABORATORY | + + + + + | BASOPHILS ABS | 0.06Comment: Testing | 0.00 - 0.10 K/uL | [facility] | | | performed at [facility], [address] | | LABORATORY | | | [address], | | | | | [place] [address] | | | + + + + + + + | Specimen | + + | Blood | + + + + + + + | Performing | Address | City/State/Zipcode | Phone Number | | Organization | | | | + + + + + | [facility] | [address] | [place] [address] | [phone] | | LABORATORY | [address] | | | + + + + + POCT glucose (04/02/2018 9:21 PM) + + + + + | Component | Value | Ref Range | Performed At | + + + + + | GLUCOSE,POC SCREEN | 139 (H)Comment: Testing | 65 - 99 mg/dL | [facility] | | | performed at [facility];[address] | | | | | [address];[place] | | | | | [address] | | | + + + + + + + + + + | Performing | Address | City/State/Zipcode | Phone Number | | Organization | | | | + + + + + | [facility] | [address] | [place] [address] | | + + + + + POCT glucose (04/02/2018 4:05 PM) + + + + + | Component | Value | Ref Range | Performed At | + + + + + | GLUCOSE,POC SCREEN | 139 (H)Comment: Testing | 65 - 99 mg/dL | [facility] | | | performed at [facility];[address] | | | | | [address];[place] | | | | | [address] | | | + + + + + + + + + + | Performing | Address | City/State/Zipcode | Phone Number | | Organization | | | | + + + + + | [facility] | [address] | [place] [address] | | + + + + + POCT glucose (04/02/2018 11:41 AM) + + + + + | Component | Value | Ref Range | Performed At | + + + + + | GLUCOSE,POC SCREEN | 130 (H)Comment: Testing | 65 - 99 mg/dL | [facility] | | | performed at [facility];[address];[place] | | | | | [address] | | | + + + + + + + + + + | Performing | Address | City/State/Zipcode | Phone Number | | Organization | | | | + + + + + | [facility] | [address] | [place] [address] | | + + + + + POCT glucose (04/02/2018 5:24 AM) + + + + + | Component | Value | Ref Range | Performed At | + + + + + | GLUCOSE,POC SCREEN | 138 (H)Comment: Testing | 65 - 99 mg/dL | [facility] | | | performed at [facility];[address];[place] | | | | | [address] | | | + + + + + + + + + + | Performing | Address | City/State/Zipcode | Phone Number | | Organization | | | | + + + + + | [facility] | [address] | [place] [address] | | + + + + + Basic metabolic panel (04/02/2018 4:33 AM) + + + + + | [...] + + + + | CHLORIDE | 104 | 99 - 109 mmol/L | [facility] | | | | | LABORATORY | + + + + + | CO2 | 27 | 23 - 32 mmol/L | [facility] | | | | | LABORATORY | + + + + + | ANION GAP AGAP | 12 | 5 - 20 mmol/L | [facility] | | | | | LABORATORY | + + + + + | GLUCOSE | 139 (H) | 65 - 99 mg/dL | [facility] | | | | | LABORATORY | + + + + + | BUN | 18 | 8 - 25 mg/dL | [facility] | | | | | LABORATORY | + + + + + | CREATININE | 0.8 | 0.70 - 1.30 mg/dL | [facility] | | | | | LABORATORY | + + + + + | BUN/CREAT | 23 | | [facility] | | | | | LABORATORY | + + + + + | CALCIUM | 8.1 (L) | 8.5 - 10.5 mg/dL | [...] the | | | | | MDRD IDCA traceable | | | | | equation.Testing | | | | | performed at [facility], [address] | | | | [facility], | | | | | [place] [address] | | | + + + + + + + | Specimen | + + | Blood | + + + + + + + | Performing | Address | City/State/Zipcode | Phone Number | | Organization | | | | + + + + + | [facility] | [address] | [place] [address] | [phone] | | LABORATORY | [address] | | | + + + + + CBC w/auto diff (reflex to manual) (04/02/2018 4:33 AM) + + + + + | Component | Value | Ref Range | Performed At | + + + + + | WBC | 8.89 | 3.80 - 11.00 K/uL | [facility] | | | | | LABORATORY | + + + + + | RBC | 3.30 (L) | 4.20 - 5.70 M/uL | [facility] | | | | | LABORATORY | + + + + + | HGB | 9.6 (L) | 13.2 - 17.0 g/dL | [facility] | | | | | LABORATORY | + + + + + | HCT | 27.7 (L) | 39.0 - 50.0 % | [facility] | | | | | LABORATORY | + + + + + | MCV | 83.9 | 80.0 - 100.0 fl | [facility] | | | | | LABORATORY | + + + + + | MCH | 29.2 | 27.0 - 34.0 pg | [facility] | | | | | LABORATORY | + + + + + | MCHC | 34.8 | 32.0 - 35.5 g/dL | [facility] | | | | | LABORATORY | + + + + + | RDW SD | 42.4 | 37 - 53 fl | [facility] | | | | | LABORATORY | + + + + + | PLT | 214 | 150 - 400 K/uL | [facility] | | | | | LABORATORY | + + + + + | MPV | 7.4 | fl | [facility] | | | | | LABORATORY | + + + + + | DIFF TYPE | AUTOMATED | | [facility] | | | | | LABORATORY | + + + + + | NEUTROPHILS | 75.54 | % | [facility] | | | | | LABORATORY | + + + + + | LYMPHOCYTES | 16.23 | % | [facility] | | | | | LABORATORY | + + + + + | MONOCYTES | 7.18 | % | [facility] | | | | | LABORATORY | + + + + + | EOSINOPHILS | 0.47 | % | [facility] | | | | | LABORATORY | + + + + + | BASOPHILS | 0.58 | % | [facility] | | | | | LABORATORY | + + + + + | NEUTROPHILS ABS | 6.72 | 1.90 - 7.40 K/uL | [facility] | | | | | LABORATORY | + + + + + | LYMPHOCYTES ABS | 1.44 | 1.00 - 3.90 K/uL | [facility] | | | | | LABORATORY | + + + + + | MONOCYTES ABS | 0.64 | 0.00 - 0.80 K/uL | [facility] | | | | | LABORATORY | + + + + + | EOSINOPHILS ABS | 0.04 | 0.00 - 0.50 K/uL | [facility] | | | | | LABORATORY | + + + + + | BASOPHILS ABS | 0.05Comment: Testing | 0.00 - 0.10 K/uL | [facility] | | | performed at [facility], [address] | LABORATORY | | | [address], | | | | | [place] [address] | | | + + + + + + + | Specimen | + + | Blood | + + + + + + + | Performing | Address | City/State/Zipcode | Phone Number | | Organization | | | | + + + + + | [facility] | [address] [place] [address] | [place] [address] | [phone] | | LABORATORY | [address] | | | + + + + + POCT glucose (04/01/2018 9:45 PM) + + + + + | Component | Value | Ref Range | Performed At | + + + + + | GLUCOSE,POC SCREEN | 236 (H)Comment: Testing | 65 - 99 mg/dL | [facility] | | | performed at [facility];[address] | | | [address];[place], [place] | | | | | [address] | | | + + + + + + + + + + | Performing | Address | City/State/Zipcode | Phone Number | | Organization | | | | + + + + + | [facility] | [address] | [place] [address] | | + + + + + POCT glucose (04/01/2018 4:14 PM) + + + + + | Component | Value | Ref Range | Performed At | + + + + + | GLUCOSE,POC SCREEN | 174 (H)Comment: Testing | 65 - 99 mg/dL | [facility] | | | performed at [facility];[address];[place] | | | | | [address] | | | + + + + + + + + + + | Performing | Address | City/State/Zipcode | Phone Number | | Organization | | | | + + + + + | [facility] | [address] | [place] [address] | | + + + + + POCT glucose (04/01/2018 11:10 AM) + + + + + | Component | Value | Ref Range | Performed At | + + + + + | GLUCOSE,POC SCREEN | 247 (H)Comment: Testing | 65 - 99 mg/dL | [facility] | | | performed at [facility];[address];[place] | | | | | [address] | | | + + + + + + + + + + | Performing | Address | City/State/Zipcode | Phone Number | | Organization | | | | + + + + + | [facility] | [address] | [facility] [address] | | + + + + + Protime-INR (04/01/2018 9:23 AM) + + + + + | Component | Value | Ref Range | Performed At | + + + + + | INR | 1.1Comment: REFERENCE | | [facility] | | | RANGE:0.9 - | [...] | | | | | performed at [facility];[address] | | | | | [address];[place] | | | | | [address] | | | + + + + + + + | Specimen | + + | Blood | + + + + + + + | Performing | Address | City/State/Zipcode | Phone Number | | Organization | | | | + + + + + | [facility] | [address] | [place] [address] | | + + + + + POCT glucose (04/01/2018 5:52 AM) + + + + + | Component | Value | Ref Range | Performed At | + + + + + | GLUCOSE,POC SCREEN | 277 (H)Comment: Testing | 65 - 99 mg/dL | [facility] | | | performed at [facility];[address] | | | | | [address] [employer] [place] | | | | | [address] | | | + + + + + + + + + + | Performing | Address | City/State/Zipcode | Phone Number | | Organization | | | | + + + + + | [facility] | [address] | [place] [address] | | + + + + + Basic metabolic panel (04/01/2018 4:23 AM) + + + + + | Component | Value | Ref Range | Performed At | + + + + + | SODIUM | 137 | 135 - 145 mmol/L | [facility] | | | | | LABORATORY | + + + + + | POTASSIUM | 4.4 | 3.5 - 4.9 mmol/L | [facility] | | | | | LABORATORY | + + + + + | CHLORIDE | 102 | 99 - 109 mmol/L | [facility] | | | | | LABORATORY | + + + + + | CO2 | 24 | 23 - 32 mmol/L | [facility] | | | | | LABORATORY | + + + + + | ANION GAP AGAP | 15 | 5 - 20 mmol/L | [facility] | | | | | LABORATORY | + + + + + | GLUCOSE | 283 (H) | 65 - 99 mg/dL | [facility] | | | | | LABORATORY | + + + + + | BUN | 25 | 8 - 25 mg/dL | [facility] | | | | | LABORATORY | + + + + + | CREATININE | 0.9 | 0.70 - 1.30 mg/dL | [facility] | | | | | LABORATORY | + + + + + | BUN/CREAT | 28 | | [facility] | | | | | LABORATORY | + + + + + | CALCIUM | 8.0 (L) | 8.5 - 10.5 mg/dL | [facility] | | | | | LAB[facility] | + + + + + | EGFR | >60Comment: GFR <60: | >60 mL/min/1.73m2 | [facility] | | | CHRONIC KIDNEY DISEASE, [...] | | | | | performed at [facility], [address] | | | | [facility], | | | | | [place], [place] [address] | | | + + + + + + + | Specimen | + + | Blood | + + + + + + + | Performing | Address | City/State/Zipcode | Phone Number | | Organization | | | | + + + + + | [facility] | [address] | [place] [address] | [phone] | | LABORATORY | [address] | | | + + + + + CBC w/auto diff (reflex to manual) (04/01/2018 4:23 AM) + + + + + | Component | Value | Ref Range | Performed At | + + + + + | WBC | 8.01 | 3.80 - 11.00 K/uL | [facility] | | | | | LABORATORY | + + + + + | RBC | 3.50 (L) | 4.20 - 5.70 M/uL | [facility] | | | | | LABORATORY | + + + + + | HGB | 10.2 (L) | 13.2 - 17.0 g/dL | [facility] | | | | | LABORATORY | + + + + + | HCT | 29.3 (L) | 39.0 - 50.0 % | [facility] | | | | | LABORATORY | + + + + + | MCV | 83.7 | 80.0 - 100.0 fl | [facility] | | | | | LABORATORY | + + + + + | MCH | 29.3 | 27.0 - 34.0 pg | [facility] | | | | | LABORATORY | + + + + + | MCHC | 35.0 | 32.0 - 35.5 g/dL | [facility] | | | | | LABORATORY | + + + + + | RDW SD | 41.1 | 37 - 53 fl | [facility] | | | | | LABORATORY | + + + + + | PLT | 220 | 150 - 400 K/uL | [facility] | | | | | LABORATORY | + + + + + | MPV | 7.6 | fl | [facility] | | | | | LABORATORY | + + + + + | DIFF TYPE | MANUAL | | [facility] | | | | | LABORATORY | + + + + + | Neutrophils Manual | 89 | % | [facility] | | | | | LABORATORY | + + + + + | Lymphocytes Manual | 4 | % | [facility] | | | | | LABORATORY | + + + + + | Monocytes Manual | 7 | % | [facility] | | | | | LABORATORY | + + + + + | Neutrophils Absolute | 7.13 | 1.90 - 7.40 K/uL | [facility] | | | | | LABORATORY | + + + + + | Lymphocytes Absolute | 0.32 (L) | 1.00 - 3.90 K/uL | [facility] | | | | | LABORATORY | + + + + + | Monocytes Absolute | 0.56 | 0.00 - 0.80 K/uL | [facility] | | | | | LABORATORY | + + + + + | MORPHOLOGY | RBC AND PLT MORPHOLOGY | | [facility] | | | APPEAR NORMALComment: | | LABORATORY | | | Testing performed at | | | | | [facility], [address] | | | | | [place] | | | | | [address] | | | + + + + + + + | Specimen | + + | Blood | + + + + + + + | Performing | Address | City/State/Zipcode | Phone Number | | Organization | | | | + + + + + | [facility] | [address] | [place] [address] | [phone] | | LABORATORY | [address] | | | + + + + + Pathology histology - tissue (04/01/2018) + + | Specimen | + + | Tissue | + + + + + | Narrative | Performed At | + + + | SPECIMEN(S): A Rt. BELOW KNEE AMPUTATION SPECIMEN SOURCE: A. | [facility] | | Rt. BELOW KNEE AMPUTATION CLINICAL HISTORY: 03/31/2018 at 1323 | PATHOLOGY | | H. Infection necrosis of right transmetatarsal stump wound. | | | FINAL PATHOLOGIC DIAGNOSIS: Right below-knee amputation: - | | | Severe peripheral arteriosclerotic vascular disease, with luminal | | | stenoses and dystrophic calcification. - Status post prior | | | distal amputation. - Epithelial ulceration with dermal | | | gangrenous necrosis and focal underlying acute osteomyelitis. | | | - Surgical margins are viable and uninflamed. AMB:emb:C2NR | | | GROSS DESCRIPTION: One specimen is received in one container, | | | labeled with the patient's name: A. Received fresh designated | | | "right ebgyl-wpw-ztem amputation" consists of a right gyblj-ljr-owle | | | amputated leg that is 29.5 cm from aiej-xp-vpkbabozl margin and has a | | | portion of foot is 14.5 x 8.1 cm. The skin is pale pink with scant | | | areas of hair. The distal aspect of the foot has been previously | | | resected. The resection site displays a 10.5 cm transverse incision | | | closed by black sutures. The soft tissue surrounding the incision is | | | green-black and softened. The softened area extends along the plantar | | | surface 4.5 x 3.0 cm and is 28.3 cm from the soft tissue resection | | | margin. Serially sectioning reveals a liquid underlying soft tissue, | | | which abuts the bone. Involvement of the bone is not grossly | | | identified. A second linear incision is present along the medial | | | aspect of the vergara measuring 7.1 cm in length. The second incision | | | displays areas of green-black softening serially sectioning reveals | | | involvement of underlying soft tissue and is 1.0 cm from the soft | | | tissue resection margin. The posterior heel displays an area of | | | yellow-brown thickened and roughened skin that is 1.7 x 1.5 cm. The | | | anterior tibial vessels display areas of yellow calcification with | | | approximately 90% occlusion. The posterior tibial vessels display | | | areas of yellow calcification with approximately 50% occlusion. The | | | surgical resection margin is grossly viable. Joy Operator sections | | | are submitted in three cassettes. Cassette summary: (A1) soft | | | tissue resection margin, shave; (A2) incision at resection site and | | | underlying soft tissue and bone, anterior tibial vessels; (A3) areas | | | of discoloration on the medial incision, thickened skin on heel, and | | | posterior tibial vessels. FM The gross description section of this | | | report has been prepared using a voice recognition system. The report | | | was reviewed for accuracy, however, sound-alike word errors, addition | | | and/or deletions may occur. If there is any question about this | | | report please contact the originating pathologist. MICROSCOPIC | | | EXAMINATION: Histologic sections of all submitted blocks are examined | | | by light microscopy. These findings, together with the gross | | | examination, support the pathologic diagnosis. PERFORMING LABORATORY: | | | Professional interpretation and technical preparation was performed | | | by [employer], [facility], [address] [place] [address]., | | | [place] [address] (Product Test Engineer: Ha Couch M.D.; | | | [facility]#: [id number]). Diagnostician: Breann Melara MD Pathologist | | | Electronically Signed 04/04/2018 | | + + + + +---------+ + + | Performing | Address | City/State/Zipcode | Phone Number | | Organization | | | | + +---------+ + + | [facility] | | | | + +---------+ + + POCT glucose (03/31/2018 9:45 PM) + + + + + | Component | Value | Ref Range | Performed At | + + + + + | GLUCOSE,POC SCREEN | 336 (H)Comment: Testing | 65 - 99 mg/dL | [facility] | | | performed at [facility];[address] | | | | | [address];[place] | | | | | [address] | | | + + + + + + + + + + | Performing | Address | City/State/Zipcode | Phone Number | | Organization | | | | + + + + + | [facility] | [address] | [facility] [place] [address] | | + + + + + POCT glucose (03/31/2018 2:41 PM) + + + + + | Component | Value | Ref Range | Performed At | + + + + + | GLUCOSE,POC SCREEN | 118 (H)Comment: Testing | 65 - 99 mg/dL | [facility] | | | performed at [facility];[address] | | | | | [address];[place] | | | | | [address] | | | + + + + + + + + + + | Performing | Address | City/State/Zipcode | Phone Number | | Organization | | | | + + + + + | [facility] | [address] | [place] [address] | | + + + + + POCT glucose (03/31/2018 11:30 AM) + + + + + | Component | Value | Ref Range | Performed At | + + + + + | GLUCOSE,POC SCREEN | 94Comment: Testing | 65 - 99 mg/dL | [facility] | | | performed at [facility];[address] | | | | | [address];[place] | | | | | [address] | | | + + + + + + + + + + | Performing | Address | City/State/Zipcode | Phone Number | | Organization | | | | + + + + + | [facility] | [address] | [place] [address] | | + + + + + CBC w/auto diff (reflex to manual) (03/31/2018 6:13 AM) + + + + + | Component | Value | Ref Range | Performed At | + + + + + | WBC | 7.95 | 3.80 - 11.00 K/uL | [facility] | | | | | LABORATORY | + + + + + | RBC | 4.23 | 4.20 - 5.70 M/uL | [facility] | | | | | LABORATORY | + + + + + | HGB | 12.4 (L) | 13.2 - 17.0 g/dL | [facility] | | | | | LABORATORY | + + + + + | HCT | 35.4 (L) | 39.0 - 50.0 % | [facility] | | | | | LABORATORY | + + + + + | MCV | 83.7 | 80.0 - 100.0 fl | [facility] | | | | | LABORATORY | + + + + + | MCH | 29.3 | 27.0 - 34.0 pg | [facility] | | | | | LABORATORY | + + + + + | MCHC | 35.0 | 32.0 - 35.5 g/dL | [facility] | | | | | LABORATORY | + + + + + | RDW SD | 42.0 | 37 - 53 fl | [facility] | | | | | LABORATORY | + + + + + | PLT | 224 | 150 - 400 K/uL | [facility] | | | | | LABORATORY | + + + + + | MPV | 7.4 | fl | [facility] | | | | | LABORATORY | + + + + + | DIFF TYPE | AUTOMATED | | [facility] | | | | | LABORATORY | + + + + + | NEUTROPHILS | 73.59 | % | [facility] | | | | | LABORATORY | + + + + + | LYMPHOCYTES | 16.66 | % | [facility] | | | | | LABORATORY | + + + + + | MONOCYTES | 7.76 | % | [facility] | | | | | LABORATORY | + + + + + | EOSINOPHILS | 1.18 | % | [facility] | | | | | LABORATORY | + + + + + | BASOPHILS | 0.81 | % | [facility] | | | | | LABORATORY | + + + + + | NEUTROPHILS ABS | 5.85 | 1.90 - 7.40 K/uL | [facility] | | | | | LABORATORY | + + + + + | LYMPHOCYTES ABS | 1.33 | 1.00 - 3.90 K/uL | [facility] | | | | | LABORATORY | + + + + + | MONOCYTES ABS | 0.62 | 0.00 - 0.80 K/uL | [facility] | | | | | LABORATORY | + + + + + | EOSINOPHILS ABS | 0.09 | 0.00 - 0.50 K/uL | [facility] | | | | | LABORATORY | + + + + + | BASOPHILS ABS | 0.07Comment: Testing | 0.00 - 0.10 K/uL | [facility] | | | performed at [facility], [address] | | LABORATORY | | | [address] [place], | | | | | [place] [address] | | | + + + + + + + | Specimen | + + | Blood | + + + + + + + | Performing | Address | City/State/Zipcode | Phone Number | | Organization | | | | + + + + + | [facility] | [address] | [place] [address] | [phone] | | LABORATORY | [address] | | | + + + + + Type and screen (03/31/2018 6:13 AM) + + + + + | Component | Value | Ref Range | Performed At | + + + + + | ABO/RH(D) | A POSITIVE | | [facility] | + + + + + | ANTIBODY SCREEN | NEGATIVE | | [facility] | + + + + + | ARM BAND NUMBER | [id number] | | [facility] | | | performed at [facility];[address] | | | | | [address];[place] | | | | | [address] | | | + + + + + + + | Specimen | + + | Blood | + + + + + + + | Performing | Address | City/State/Zipcode | Phone Number | | Organization | | | | + + + + + | [facility] | [address] | [place] [address] | | + + + + + Protime-INR (03/31/2018 6:13 AM) + + + + + | Component | Value | Ref Range | Performed At | + + + + + | INR | 1.7Comment: REFERENCE | | [facility] | | | RANGE:0.9 - | [...] | | | | | performed at [facility];[address] | | | | | [address];[place] | | | | | [address] | | | + + + + + + + | Specimen | + + | Blood | + + + + + + + | Performing | Address | City/State/Zipcode | Phone Number | | Organization | | | | + + + + + | [facility] | [address] | [place] [address] | | + + + + + Magnesium (03/31/2018 6:13 AM) + + + + + | Component | Value | Ref Range | Performed At | + + + + + | MAGNESIUM | 2.1Comment: Testing | 1.7 - 2.4 mg/dL | [facility] | | | performed at [facility], [facility] [address] | | LABORATORY | | | [facility], | | | | | [place] [address] | | | + + + + + + + | Specimen | + + | Blood | + + + + + + + | Performing | Address | City/State/Zipcode | Phone Number | | Organization | | | | + + + + + | [facility] | [address] | [place] [address] | [phone] | | LABORATORY | [address] | | | + + + + + Comprehensive metabolic panel (03/31/2018 6:13 AM) + + + + + | [...] + + + + | CHLORIDE | 104 | 99 - 109 mmol/L | [facility] | | | | | LABORATORY | + + + + + | CO2 | 27 | 23 - 32 mmol/L | [facility] | | | | | LABORATORY | + + + + + | ANION GAP AGAP | 12 | 5 - 20 mmol/L | [facility] | | | | | LABORATORY | + + + + + | GLUCOSE | 93 | 65 - 99 mg/dL | [facility] | | | | | LABORATORY | + + + + + | BUN | 24 | 8 - 25 mg/dL | [facility] | | | | | LABORATORY | + + + + + | CREATININE | 0.8 | 0.70 - 1.30 mg/dL | [facility] | | | | | LABORATORY | + + + + + | BUN/CREAT | 30 | | [facility] | | | | | LABORATORY | + + + + + | CALCIUM | 8.9 | 8.5 - 10.5 mg/dL | [facility] | | | | | LABORATORY | + + + + + | TOTAL PROTEIN | 7.3 | 6.3 - 8.2 g/dL | [facility] | | | | | LABORATORY | + + + + + | Albumin | 3.0 (L) | 3.6 - 5.0 g/dL | [facility] | | | | | LABORATORY | + + + + + | GLOBULIN | 4.3 | 1.3 - 4.9 g/dL | [facility] | | | | | LABORATORY | + + + + + | A/G | 0.7 (L) | 1.0 - 2.4 | [facility] | | | | | LABORATORY | + + + + + | TBIL | 0.8 | 0.1 - 1.5 mg/dL | [facility] | | | | | LABORATORY | + + + + + | ALK PHOS | 103 | 35 - 115 U/L | [facility] | | | | | LABORATORY | + + + + + | AST | 20 | 10 - 45 U/L | [facility] | | | | | LABORATORY | + + + + + | ALT | 29 | 10 - 65 U/L | [facility] | | | | | [...] | | | | | performed at [facility], [address] | | | | [facility], | | | | | [place] [address] | | | + + + + + + + | Specimen | + + | Blood | + + + + + + + | Performing | Address | City/State/Zipcode | Phone Number | | Organization | | | | + + + + + | [facility] | [address] | [place] [address] | [phone] | | LABORATORY | [address] | | | + + + + + POCT glucose (03/31/2018 6:07 AM) + + + + + | Component | Value | Ref Range | Performed At | + + + + + | GLUCOSE,POC SCREEN | 89Comment: Testing | 65 - 99 mg/dL | [facility] | | | performed at [facility];[address] | [address] | | [address];[place], [place] | | | | | [address] | | | + + + + + + + + + + | Performing | Address | City/State/Zipcode | Phone Number | | Organization | | | | + + + + + | [facility] | [address] | [place] [address] | | + + + + + POCT glucose (03/30/2018 9:12 PM) + + + + + | Component | Value | Ref Range | Performed At | + + + + + | GLUCOSE,POC SCREEN | 77Comment: Testing | 65 - 99 mg/dL | [facility] | | | performed at [facility];[address] | | | | | [address];[place] | | | | | [address] | | | + + + + + + + + + + | Performing | Address | City/State/Zipcode | Phone Number | | Organization | | | | + + + + + | [facility] | [address] | [place] [address] | | + + + + + EKG 12 LEAD UNIT PERFORMED (03/30/2018 7:05 PM) + + + + + | Component | Value | Ref Range | Performed At | + + + + + | Ventricular Rate | 87 | BPM | [facility] | + + + + + | Atrial Rate | 87 | BPM | [facility] | + + + + + | P-R Interval | 134 | ms | [facility] | + + + + + | QRS Duration | 84 | ms | [facility] | + + + + + | Q-T Interval | 354 | ms | [facility] | + + + + + | QTC Calculation | 425 | ms | [facility] | | (Bezet) | | | | + + + + + | Calculated P [place] | 9 | degrees | [facility] | + + + + + | Calculated R [place] | 53 | degrees | [facility] | + + + + + | Calculated T [place] | 53 | degrees | [facility] | + + + + + | Diagnosis | Normal sinus | | [facility] | | | rhythmNormal ECGNo | | | | | previous ECGs | | | | | availableThis ECG | | | | | contains Unconfirmed | | | | | Interpretation | | | | | Statements. See ED | | | | | Record for Physician | | | | | Interpretation. | | | | | Confirmed by MUSE READ | | | | | ONLY, -COMPUTER ([id number]), | | | | | commercial production editor Nahid John | | | | | Jesse ([id number]) on 03/31/2018 | | | | | 3:26:17 AM | | | + + + + + + + + + + | Performing | Address | City/State/Zipcode | Phone Number | | Organization | | | | + + + + + | [facility] | [address] | [place] [address] | | + + + + + Blood Culture Set 2 (03/30/2018 6:16 PM) + + + + + | Component | Value | Ref Range | Performed At | + + + + + | Specimen Description | BLOOD | | [facility] | | | | | LABORATORY | + + + + + | SPECIAL REQUESTS | [facility] | | [facility] | + + + + + [...] | + + + + + | [facility] | [address] | [place] [address] | [phone] | | LABORATORY | [address] | | | + + + + + | [facility] | [address] | [place] [address] | | + + + + + MRSA by PCR (03/30/2018 5:39 PM) + + + + + | Component | Value | Ref Range | Performed At | + + + + + | SOURCE | SARAH(NOSE) | | [facility] | + + + + + | MRSA PCR | NEGATIVEComment: Testing | NEGATIVE | [facility] | | | performed at [facility];[address] | | | | | [address];[place] | | | | | [address] | | | + + + + + + + | Specimen | + + | Nasopharyngeal - | | Nares(Nose) | + + + + + + + | Performing | Address | City/State/Zipcode | Phone Number | | Organization | | | | + + + + + | [facility] | [address] | [place] [address] | | + + + + + Troponin I (03/30/2018 5:12 PM) + + + + + | Component | Value | Ref Range | Performed At | + + + + + | TROPONIN I | <0.020Comment: 0.00 to | 0.00 - 0.10 ng/mL | [facility] | | | 0.10 CONSISTENT | | | | | WITH NORMAL | | | | | POPULATION0.11 to | | | | | 0.60 CONSISTENT WITH | | | | | INCREASED RISK FOR | | | | | ADVERSE OUTCOMES> | | | | | 0.60 | | | | | CONSISTENT WITH WHO | | | | | CRITERIA FOR ACUTE [place] | | | | | Testing performed at | | | | | [facility];[address] [place] [address] | | | | | [facility];[place] [address] | | | + + + + + + + + + + | Performing | Address | City/State/Zipcode | Phone Number | | Organization | | | | + + + + + | [facility] | [address] | [place] [address] | | + + + + + Sedimentation Rate (ESR) (03/30/2018 5:12 PM) + + + + + | Component | Value | Ref Range | Performed At | + + + + + | ESR | 67 (H)Comment: Testing | 0 - 20 mm/Hr | [facility] | | | performed at [facility];[address];[place] | | | | | [address] | | | + + + + + + + | Specimen | + + | Blood | + + + + + + + | Performing | Address | City/State/Zipcode | Phone Number | | Organization | | | | + + + + + | [facility] | [address] | [place] [address] | | + + + + + C-reactive protein (03/30/2018 5:12 PM) + + + + + | Component | Value | Ref Range | Performed At | + + + + + | CRP | 3.1 (H)Comment: Testing | <0.5 mg/dL | [facility] | | | performed at [facility];[address] | | | | | [address];[place] | | | | | [address] | | | + + + + + + + | Specimen | + + | Blood | + + + + + + + | Performing | Address | City/State/Zipcode | Phone Number | | Organization | | | | + + + + + | [facility] | [address] | [place] [address] | | + + + + + aPTT (03/30/2018 5:12 PM) + + + + + | Component | Value | Ref Range | Performed At | + + + + + | APTT | 55 (H)Comment: Testing | 23 - 32 seconds | [facility] | | | performed at [facility];[address] | | | | | [address];[place] | | | | | [address] | | | + + + + + + + | Specimen | + + | Blood | + + + + + + + | Performing | Address | City/State/Zipcode | Phone Number | | Organization | | | | + + + + + | [facility] | [address] | [place] [address] | | + + + + + Protime (03/30/2018 5:12 PM) + + + + + | Component | Value | Ref Range | Performed At | + + + + + | INR | 3.0Comment: REFERENCE | | [facility] | | | RANGE:0.9 - | [...] | | | | | performed at [facility];[address] | | | | | [address];[place], [place] | | | | | [address] | | | + + + + + + + | Specimen | + + | Blood | + + + + + + + | Performing | Address | City/State/Zipcode | Phone Number | | Organization | | | | + + + + + | [facility] | [address] | [place] [address] | | + + + + + Comprehensive metabolic panel (03/30/2018 5:12 PM) + + + + + | Component | Value | Ref Range | Performed At | + + + + + | SODIUM | 139 | 135 - 145 mmol/L | [facility] | + + + + + | POTASSIUM | 4.3 | 3.5 - 4.9 mmol/L | [facility] | + + + + + | CHLORIDE | 103 | 99 - 109 mmol/L | [facility] | + + + + + | CO2 | 26 | 23 - 32 mmol/L | [facility] | + + + + + | ANION GAP AGAP | 15 | 5 - 20 mmol/L | [facility] | + + + + + | GLUCOSE | 95 | 65 - 99 mg/dL | [facility] | + + + + + | BUN | 20 | 8 - 25 mg/dL | [facility] | + + + + + | CREATININE | 0.84 | 0.70 - 1.30 mg/dL | [facility] | + + + + + | BUN/CREAT | 24 | | [facility] | + + + + + | CALCIUM | 9.3 | 8.5 - 10.5 mg/dL | [facility] | + + + + + | TOTAL PROTEIN | 8.0 | 6.3 - 8.2 g/dL | [facility] | + + + + + | Albumin | 3.1 (L) | 3.6 - 5.0 g/dL | [facility] | + + + + + | GLOBULIN | 4.9 | 1.3 - 4.9 g/dL | [facility] | + + + + + | A/G | 0.6 (L) | 1.0 - 2.4 | [facility] | + + + + + | TBIL | 0.6 | 0.1 - 1.5 mg/dL | [facility] | + + + + + | ALK PHOS | 98 | 35 - 115 U/L | [facility] | + + + + + | AST | 19 | 10 - 45 U/L | [facility] | + + + + + | ALT | 29 | 10 - 65 U/L | [facility] | + + + + + | EGFR | >60Comment: GFR <60: | >60 mL/min/1.73m2 | [facility] | | | CHRONIC KIDNEY DISEASE, [...] the | | | | | MDRD [facility] traceable | | | | | equation.Testing | | | | | performed at [facility];[address] | | | | | [facility];[place], [place] | | | | | [address] | | | + + + + + + + | Specimen | + + | Blood | + + + + + + + | Performing | Address | City/State/Zipcode | Phone Number | | Organization | | | | + + + + + | [facility] | [address] | [place] [address] | | + + + + + CBC with differential (03/30/2018 5:12 PM) + + + + + | Component | Value | Ref Range | Performed At | + + + + + | WBC | 8.04 | 3.80 - 11.00 K/uL | [facility] | + + + + + | RBC | 4.38 | 4.20 - 5.70 M/uL | [facility] | + + + + + | HGB | 12.8 (L) | 13.2 - 17.0 g/dL | [facility] | + + + + + | HCT | 37.3 (L) | 39.0 - 50.0 % | [facility] | + + + + + | MCV | 85.0 | 80.0 - 100.0 fl | [facility] | + + + + + | MCH | 29.1 | 27.0 - 34.0 pg | [facility] | + + + + + | MCHC | 34.3 | 32.0 - 35.5 g/dL | [facility] | + + + + + | RDW SD | 42.4 | 37 - 53 fl | [facility] | + + + + + | PLT | 255 | 150 - 400 K/uL | [facility] | + + + + + | MPV | 7.2 | fl | [facility] | + + + + + | DIFF TYPE | AUTOMATED | | [facility] | + + + + + | NEUTROPHILS | 73.88 | % | [facility] | + + + + + | LYMPHOCYTES | 16.51 | % | [facility] | + + + + + | MONOCYTES | 7.01 | % | [facility] | + + + + + | EOSINOPHILS | 1.56 | % | [facility] | + + + + + | BASOPHILS | 1.04 | % | [facility] | + + + + + | NEUTROPHILS ABS | 5.94 | 1.90 - 7.40 K/uL | [facility] | + + + + + | LYMPHOCYTES ABS | 1.33 | 1.00 - 3.90 K/uL | [facility] | + + + + + | MONOCYTES ABS | 0.56 | 0.00 - 0.80 K/uL | [facility] | + + + + + | EOSINOPHILS ABS | 0.13 | 0.00 - 0.50 K/uL | [facility] | + + + + + | BASOPHILS ABS | 0.08Comment: Testing | 0.00 - 0.10 K/uL | [facility] | | | performed at [facility];[address] | | | | | [address];[place] | | | | | [address] | | | + + + + + + + | Specimen | + + | Blood | + + + + + + + | Performing | Address | City/State/Zipcode | Phone Number | | Organization | | | | + + + + + | [facility] | [address] | [place] [address] | | + + + + + Blood Culture Set 1 (03/30/2018 5:11 PM) + + + + + | [...] + + + | [facility] | [address] | [place] [address] | [phone] | | LABORATORY | [address] | | | + + + + + in this encounter Visit Diagnoses Not on filein this encounter Admitting Diagnoses + + | Diagnosis | + + | PVD (peripheral vascular disease) ([facility]) | + + | Peripheral vascular disease, unspecified | + + | Amputation stump infection (HCC) | + + | Infection (chronic) of amputation stump | + + Administered Medications + +--------+---------+------+------+------+ | Medication Order | MAR | Action | Dose | Rate | Site | | | Action | Date | | | | + +--------+---------+------+------+------+ + +---+ | acetaminophen (TYLENOL) | | | suppository 650 mg 650 mg, | | | Rectal, Every 6 Hours PRN, Mild | | | Pain (1-3), Fever, Starting [facility] | | | 03/31/18 at 1633 | | + +---+ | | | + +---+ | acetaminophen (TYLENOL) tablet | | | 650 mg 650 mg, Oral, Every 6 | | | Hours PRN, Mild Pain (1-3), | | | Fever, Starting [facility] 03/31/18 at | | | 1633 | | + +---+ | | | + +---+ + +-------+ +-------+---+---+ | atorvastatin (LIPITOR) tablet | Given | 04/01/2018 | 40 mg | | | | 40 mg 40 mg, Oral, Nightly, | | 21:42 | | | | | First dose on Wed03/30/18 at 2200 | | PDT | | | | + +-------+ +-------+---+---+ +-------+ +-------+---+---+ | Given | 04/02/2018 | 40 mg | | | | | 21:32 | | | | | | PDT | | | | +-------+ +-------+---+---+ | Given | 04/03/2018 | 40 mg | | | | | 21:51 | | | | | | PDT | | | | +-------+ +-------+---+---+ +---+---+ | | | +---+---+ + +-------+ +-------+---+---+ | bisacodyl (DULCOLAX) | Given | 04/04/2018 | 10 mg | | | | suppository 10 mg 10 mg, Rectal, | | 04:06 | | | | | Daily PRN, Constipation, | | PDT | | | | | Starting [facility] 03/31/18 at 1850 | | | | | | + +-------+ +-------+---+---+ +---+---+ | | | +---+---+ + +-------+ + +---+---+ | calcium carbonate (TUMS) | Given | 04/02/2018 | 1,000 mg | | | | chewable tablet 1,000 mg 1,000 | | 00:08 | | | | | mg, Oral, Every 6 Hours PRN, | | PDT | | | | | Indigestion, Starting 04/02/18 | | | | | | | at 0003 | | | | | | + +-------+ + +---+---+ +-------+ + +---+---+ | Given | 04/02/2018 | 1,000 mg | | | | | 21:54 | | | | | | PDT | | | | +-------+ + +---+---+ | Given | 04/03/2018 | 1,000 mg | | | | | 22:33 | | | | | | PDT | | | | +-------+ + +---+---+ +---+---+ | | | +---+---+ + +-------+ +--------+---+---+ | fentaNYL (SUBLIMAZE) injection | Given | 04/02/2018 | 25 mcg | | | | 25 mcg 25 mcg, Intravenous, | | 11:17 | | | | | Every 1 Hour PRN, Moderate Pain | | PDT | | | | | (-), Starting [facility] 03/31/18 at | | | | | | | 1633 | | | | | | + +-------+ +--------+---+---+ +-------+ +--------+---+---+ | Given | 04/03/2018 | 25 mcg | | | | | 20:28 | | | | | | PDT | | | | +-------+ +--------+---+---+ | Given | 04/04/2018 | 25 mcg | | | | | 05:14 | | | | | | PDT | | | | +-------+ +--------+---+---+ +---+---+ | | | +---+---+ + +-------+ +--------+---+---+ | fentaNYL (SUBLIMAZE) injection | Given | 04/01/2018 | 50 mcg | | | | 50 mcg 50 mcg, Intravenous, | | 19:28 | | | | | Every 1 Hour PRN, Severe Pain | | PDT | | | | | (7-), Starting [facility] 03/31/18 at | | | | | | | 1633 | | | | | | + +-------+ +--------+---+---+ +-------+ +--------+---+---+ | Given | 04/01/2018 | 50 mcg | | | | | 21:40 | | | | | | PDT | | | | +-------+ +--------+---+---+ | Given | 04/02/2018 | 50 mcg | | | | | 02:04 | | | | | | PDT | | | | +-------+ +--------+---+---+ +---+---+ | | | +---+---+ + +-------+ +--------+---+---+ | gabapentin (NEURONTIN) capsule | Given | 04/04/2018 | 300 mg | | | | 300 mg 300 mg, Oral, 3 Times | | 13:21 | | | | | Daily, First dose on 04/04/18 | | PDT | | | | | at 1400 | | | | | | + +-------+ +--------+---+---+ +---+---+ | | | +---+---+ + +-------+ +------+---+---+ | glimepiride (AMARYL) tablet 2 | Given | 04/02/2018 | 2 mg | | | | mg 2 mg, Oral, Every Morning, | | 08:29 | | | | | First dose on [facility] 03/31/18 at 0900 | | PDT | | | | + +-------+ +------+---+---+ +-------+ +------+---+---+ | Given | 04/03/2018 | 2 mg | | | | | 09:11 | | | | | | PDT | | | | +-------+ +------+---+---+ | Given | 04/04/2018 | 2 mg | | | | | 09:28 | | | | | | PDT | | | | +-------+ +------+---+---+ +---+---+ | | | +---+---+ + +-------+ +---------+---+---+ | insulin lispro (human) | Given | 04/02/2018 | 1 Units | | | | (HUMALOG) injection 0-10 Units | | 16:24 | | | | | 0-10 Units, Subcutaneous, 3 Times | | PDT | | | | | Daily Before Meals, First dose | | | | | | | on Wed03/30/18 at 2100 | | | | | | + +-------+ +---------+---+---+ +-------+ +---------+---+---+ | Given | 04/03/2018 | 2 Units | | | | | 16:38 | | | | | | PDT | | | | +-------+ +---------+---+---+ | Given | 04/04/2018 | 7 Units | | | | | 11:36 | | | | | | PDT | | | | +-------+ +---------+---+---+ +---+---+ | | | +---+---+ + +-------+ +---------+---+---+ | insulin lispro (human) | Given | 03/31/2018 | 3 Units | | | | (HUMALOG) injection 0-5 Units | | 22:50 | | | | | 0-5 Units, Subcutaneous, Nightly, | | PDT | | | | | First dose on Wed03/30/18 at 2200 | | | | | | + +-------+ +---------+---+---+ +-------+ +---------+---+---+ | Given | 04/01/2018 | 1 Units | | | | | 21:46 | | | | | | PDT | | | | +-------+ +---------+---+---+ +---+---+ | | | +---+---+ + +-------+ +-------+---+---+ | losartan (COZAAR) tablet 25 mg | Given | 04/02/2018 | 25 mg | | | | 25 mg, Oral, Daily, First dose | | 08:29 | | | | | on [facility] 03/31/18 at 0900 | | PDT | | | | + +-------+ +-------+---+---+ +-------+ +-------+---+---+ | Given | 04/03/2018 | 25 mg | | | | | 09:11 | | | | | | PDT | | | | +-------+ +-------+---+---+ | Given | 04/04/2018 | 25 mg | | | | | 09:28 | | | | | | PDT | | | | +-------+ +-------+---+---+ +---+---+ | | | +---+---+ + +-------+ +-------+---+---+ | magnesium hydroxide (MILK OF | Given | 04/03/2018 | 5 mLs | | | | MAGNESIA) 400 MG/5ML suspension 5 | | 16:54 | | | | | mL 5 mL, Oral, Daily PRN, | | PDT | | | | | Constipation, Starting [facility] 03/31/18 | | | | | | | at 1633 | | | | | | + +-------+ +-------+---+---+ +-------+ +-------+---+---+ | Given | 04/04/2018 | 5 mLs | | | | | 09:31 | | | | | | PDT | | | | +-------+ +-------+---+---+ +---+---+ | | | +---+---+ + +-------+ +---------+---+---+ | metoprolol (LOPRESSOR) tablet | Given | 04/03/2018 | 12.5 mg | | | | 12.5 mg 12.5 mg, Oral, 2 Times | | 09:11 | | | | | Daily, First dose on Wed03/30/18 | | PDT | | | | | at 2100 | | | | | | + +-------+ +---------+---+---+ +-------+ +---------+---+---+ | Given | 04/03/2018 | 12.5 mg | | | | | 20:30 | | | | | | PDT | | | | +-------+ +---------+---+---+ | Given | 04/04/2018 | 12.5 mg | | | | | 09:26 | | | | | | PDT | | | | +-------+ +---------+---+---+ +---+---+ | | | +---+---+ + +-------+ +------+---+---+ | morphine (PF) injection 1 mg 1 | Given | 03/31/2018 | 2 mg | | | | mg, Intravenous, Every 4 Hours | | 14:00 | | | | | PRN, Severe Pain (7-10), Starting | | PDT | | | | | 03/30/18 at 2257 | | | | | | + +-------+ +------+---+---+ +-------+ +------+---+---+ | Given | 03/31/2018 | 2 mg | | | | | 14:13 | | | | | | PDT | | | | +-------+ +------+---+---+ | Given | 03/31/2018 | 2 mg | | | | | 14:23 | | | | | | PDT | | | | +-------+ +------+---+---+ +---+---+ | | | +---+---+ + +-------+ + +---+---+ | multivitamin with minerals | Given | 04/02/2018 | 1 tablet | | | | tablet 1 tablet 1 tablet, Oral, | | 08:30 | | | | | Daily, First dose on 04/01/18 | | PDT | | | | | at 0900 | | | | | | + +-------+ + +---+---+ +-------+ + +---+---+ | Given | 04/03/2018 | 1 tablet | | | | | 09:11 | | | | | | PDT | | | | +-------+ + +---+---+ | Given | 04/04/2018 | 1 tablet | | | | | 09:26 | | | | | | PDT | | | | +-------+ + +---+---+ +---+---+ | | | +---+---+ + +---------+ +---------+---+ + | nicotine (NICODERM CQ) 21 | Patch | 04/02/2018 | 1 patch | | Left Arm | | MG/24HR patch 1 patch 1 patch, | Applied | 08:29 | | | | | Transdermal, Daily, First dose on | | PDT | | | | | [facility] 03/31/18 at 0900 | | | | | | + +---------+ +---------+---+ + + + +---------+---+ + | Patch Applied | 04/03/2018 | 1 patch | | Left Arm | | | 09:11 | | | | | | PDT | | | | + + +---------+---+ + | Patch Applied | 04/04/2018 | 1 patch | | Right | | | 09:33 | | | Arm | | | PDT | | | | + + +---------+---+ + + +---+ | | | + +---+ | ondansetron (ZOFRAN) injection | | | 4 mg 4 mg, Intravenous, Every 6 | | | Hours PRN, Nausea, Vomiting, | | | Starting 03/30/18 at 2007 | | + +---+ | | | + +---+ | ondansetron (ZOFRAN) injection | | | 4 mg 4 mg, Intravenous, Every 6 | | | Hours PRN, Nausea, Vomiting, | | | Starting [facility] 03/31/18 at 1633 | | + +---+ | | | + +---+ | ondansetron (ZOFRAN-ODT) | | | disintegrating tablet 4 mg 4 mg, | | | Oral, Every 6 Hours PRN, Nausea, | | | Vomiting, Starting [facility] 03/30/18 at | | | 2007 | | + +---+ | | | + +---+ | ondansetron (ZOFRAN-ODT) | | | disintegrating tablet 4 mg 4 mg, | | | Oral, Every 6 Hours PRN, Nausea, | | | Vomiting, Starting [facility] 03/31/18 at | | | 1633 | | + +---+ | | | + +---+ + +-------+ +-------+---+---+ | oxyCODONE (ROXICODONE) | Given | 04/01/2018 | 10 mg | | | | immediate release tablet 10 mg | | 12:10 | | | | | 10 mg, Oral, Every 4 Hours PRN, | | PDT | | | | | Pain, 6 to 7, Starting Wed04/01/18 | | | | | | | at 1134 | | | | | | + +-------+ +-------+---+---+ +-------+ +-------+---+---+ | Given | 04/03/2018 | 10 mg | | | | | 21:50 | | | | | | PDT | | | | +-------+ +-------+---+---+ +---+---+ | | | +---+---+ + +-------+ +-------+---+---+ | oxyCODONE (ROXICODONE) | Given | 04/02/2018 | 15 mg | | | | immediate release tablet 15 mg | | 21:32 | | | | | 15 mg, Oral, Every 4 Hours PRN, 8 | | PDT | | | | | to 10, Starting Wed04/01/18 at | | | | | | | 1134 | | | | | | + +-------+ +-------+---+---+ +-------+ +-------+---+---+ | Given | 04/03/2018 | 15 mg | | | | | 05:34 | | | | | | PDT | | | | +-------+ +-------+---+---+ | Given | 04/04/2018 | 15 mg | | | | | 13:22 | | | | | | PDT | | | | +-------+ +-------+---+---+ + +---+ | | | + +---+ | oxyCODONE (ROXICODONE) | | | immediate release tablet 5 mg 5 | | | mg, Oral, Every 4 Hours PRN, | | | Pain, 4 to 5, Starting 04/01/18 | | | at 1134 | | + +---+ | | | + +---+ + +-------+ +------+---+---+ | polyethylene glycol (GLYCOLAX) | Given | 04/02/2018 | 17 g | | | | packet 17 g 17 g, Oral, Daily | | 08:29 | | | | | PRN, Flora, Starting Wed | | PDT | | | | | 03/30/18 at 2006 | | | | | | + +-------+ +------+---+---+ +-------+ +------+---+---+ | Given | 04/03/2018 | 17 g | | | | | 16:54 | | | | | | PDT | | | | +-------+ +------+---+---+ | Given | 04/04/2018 | 17 g | | | | | 09:36 | | | | | | PDT | | | | +-------+ +------+---+---+ +---+---+ | | | +---+---+ in this encounter
--- OUTSIDE RECORDS SUMMARY | ~2018-04-10 | XMS | Encounter Summary ---
Demographics + + + | Address | [address] | | | [place] [address] | + + + | Home Phone [...] + + + | Author | [employer] [employer] | + + + | Organization | [facility] [employer] | + + + | Address | Unknown | + + + | Phone | Unavailable | + + + Support + + +---------+ + | Name | Relationship | Address | Phone | + + +---------+ + | Megan Walker | ECON | Unknown | | + + +---------+ + Care Team Providers + +------+ + | Care Inserter Name | Role | Phone | + [...] | | | | | | | ([facility]) | | | | | | | [place] of | | | | | | | right foot | | | | | | | ([facility]) | | | +--------+--------+ + + + + Encounter Details +--------+ + + + + | Date | Type | Department | Care Team | Description | +--------+ + + + + | 02/23/ | Anesthesia | [facility] | Maribell Ferrera MD | | | 2018 | [facility] | [address] | | | | | Operating Room [address] | [place] [address] | | | | | [facility] | [phone] | | | | | [place] [address] | | | | | | [phone] | | | +--------+ + + + + Anesthesia Record + + + + + | Procedure Name | Responsible | Anesthesia Start | Anesthesia Stop Time | | | Anesthesiologist | Time | | + + + + + | BYPASS GRAFT - | Maribell Ferrera MD | 02/23/18 1741 | 02/23/18 2300 | | FEMORAL - TIBIAL | | | | | (Right Leg) | | | | + + + + + +----+---+ + + | Da | T | Event | Comment | | te | i | | | | | m | | | | | e | | | +----+---+ + + | 06 | 1 | An Start | Pre-anesthetic vital signs reassessed. | | /2 | 7 | | | | 7/ | 4 | | | | 20 | 1 | | | | 18 | | | | +----+---+ + + | | 1 | An | Standard induction. Pt moved self to table. Standard monitors | | | 7 | Induction | on, VS reassessed. PreO2. Pt NSR throughout unless otherwise | | | 4 | | specified. | | | 5 | | | +----+---+ + + | | 1 | An | Eyes taped. 2 handed BMV (newell) . DLx1 w/ Mac 3. Gr 2 view | | | 7 | Intubation | (floppy epiglottis) Atraumatic. Bilateral breath sounds, | | | 4 | | normal capnography. Vent up. | | | 7 | | | +----+---+ + + | | 1 | Quick Note | Patient positioned supine with arms to side <90 deg and padded. | | | 8 | | Head and neck in neutral position on gel donut. Upper body valarie | | | 1 | | hugger off given patients temp 38.3. All PPP. | | | 0 | | | +----+---+ + + | | 1 | Quick Note | Timeout complete, anibiotic given, procedure start | | | 8 | | | | | 2 | | | | | 7 | | | +----+---+ + + | | 1 | an evita now | Proc start | | | 8 | | | | | 2 | | | | | 7 | | | +----+---+ + + | | 1 | Quick Note | Fsbs 109 | | | 8 | | | | | 4 | | | | | 6 | | | +----+---+ + + | | 2 | Quick Note | 0/4 TOF | | | 0 | | | | | 1 | | | | | 9 | | | +----+---+ + + | | 2 | Quick Note | 0/4 TOF over ulnar | | | 1 | | | | | 3 | | | | | 6 | | | +----+---+ + + | | 2 | Quick Note | 1/4 TOF over ulnar | | | 1 | | | | | 4 | | | | | 7 | | | +----+---+ + + | | 2 | Quick Note | 2/4 TOF over ulnar | | | 2 | | | | | 0 | | | | | 5 | | | +----+---+ + + | | 2 | Quick Note | 4/4 TOF w/o fade over ulnar No fade with tetanic stim x 5sec @ | | | 2 | | 100 hz | | | 1 | | | | | 5 | | | +----+---+ + + | | 2 | An | | | | 2 | Emergence | | | | 4 | | | | | 0 | | | +----+---+ + + | | 2 | Extubation | | | | 2 | | | | | 4 | | | | | 7 | | | +----+---+ + + | | 2 | an stop | | | | 2 | data | | | | 5 | | | | | 2 | | | +----+---+ + + | | 2 | An Stop | | | | 3 | | | | | 0 | | | | | 0 | | | +----+---+ + + +------+ | Meds | +------+ + + + | Name | Total | + + + | midazolam 1 mg/mL | 2 mg | + + + | fentanyl 50 mcg/mL | 200 mcg | + + + | lidocaine 2% | 60 mg | + + + | propofol bolus | 200 mg | + + + | ROCuronium 10 mg/mL | 110 mg | + + + | ondansetron 2 mg/mL | 4 mg | + + + | HYDROmorphone 2 mg/mL | 2 mg | + + + | glycopyrrolate 0.2 mg/ml | 0.8 mg | + + + | neostigmine | 4.5 mg | + + + | phenylephrine infusion | 6,200 mcg | + + + | ampicillin-sulbactam (UNASYN) 3 g | 3 g | | in sodium chloride (IV) 0.9 % | | | 100 mL IVPB | | + + + | heparin 1,000 units/mL | 10,000 Units | + + + | vancomycin (VANCOCIN) 1500 mg/250 | 1,500 mg | | mL IVPB | | + + + | flumazenil 0.1 mg/mL | 0.3 mg | + + + | metoprolol 1 mg/mL | 2 mg | + + + | plasmalyte-A | 1,750 mL | + + + + + | Name | + + | N2O | + + | O2 | + + | Air | + + | Sevoflurane-EX | + + | N2O | + + + + | No blood administrations on file. | + + +--------+ + + + | Type | Details | Placement | Removal | +--------+ + + + | Periph | Placement Date: 02/21/18; | 02/21/182101 by | 02/25/18 1400 by | | eral | Placement Time: 2101; Removal | Barbara Sousa RN | Darlene Osborn, | | IV | Date: 02/25/18; Removal Time: | | RN | | | 1400; Size (Gauge): 20 G; | | | | | Orientation: Left; Location: | | | | | Antecubital; Site Prep: Alcohol; | | | | [...] Crawford RN | Sherie García, | | Cathet | | | RN | | er | | | | +--------+ + + + | ETT | Placement Date: 02/23/18; | 02/23/181747 by | 02/23/182246 by | | | Placement Time: 1747; Removal | Nahid Anand MD | Maribell Ferrera MD | | | Date: 02/23/18; Removal Time: | | | | | 2246; Mask Airway: Moderate; | | | | | Blade Type: MAC; Blade Size: 3; | | | | | ETT Type: Standard ETT; ETT Size | | | | | (Fr): 8.0; Technique: Direct | | | | | Laryngoscope, Oral Airway; Grade: | | | | | I; Insertion attempts: 1; | | | | | Confirmation: EtCO2, BBS, Direct | | | | | visualization; Intubation | | | | | Details: Easy, Atraumatic; Taped | | | | | at (cm): 22; Secured at: Teeth | | | +--------+ + + + | Arteri | Placement Date: 02/23/18; | 02/23/181752 by | 02/25/18 0333 by | | al | Placement Time: 1752; Removal | Nahid Anand MD | Darlene Osborn, | | Line | Date: 02/25/18; Removal Time: | | RN | | | 0333; Arterial Line Cath Gauge: | | | | | 20; Laterality: Left; Location: | | | | | Radial; Site Prep: Alcohol; | | | | | Insertion Attempts: 1; Securement | | | | | Method: Taped | | | +--------+ + + + | Periph | Placement Date: 02/23/18; | 02/23/181753 by | 02/26/18 044 by | | erabarbara | Placement Time: 1753; Removal | Nahid Anand MD | Darlene Osborn, | | IV | Date: 02/26/18; Removal Time: | | RN | | | 044; Size (Gauge): 16 G; | | | [...] | | | | | | [place] | | | | | | [id number] | | | | | | | | +--------+---------+ + + + as of this encounter Visit Diagnoses Not on filein this encounter Administered Medications + +--------+ +------+-------+------+ | Medication Order | MAR | Action | Dose | Rate | Site | | | Action | Date | | | | + +--------+ +------+-------+------+ | ampicillin-sulbactam (UNASYN) 3 | Given | | 3 g | 100 | | | g in sodium chloride (IV) 0.9 % | | 8 17:49 | | mL/hr | | | 100 mL IVPB 3 g, Intravenous, at | | PDT | | | | | 100 mL/hr, Every 6 Hours, First | | | | | | | dose on Wed02/23/18 at 1230, | | | | | | | Indications: Diabetic Foot | | | | | | | Infection, Non-Purulent Skin and | | | | | | | Soft Tissue Infection | | | | | | + +--------+ +------+-------+------+ +-------+ +-----+-------+---+ | Given | 02/27/2018 | 3 g | 100 | | | | 01:30 | | mL/hr | | | | PDT | | | | +-------+ +-----+-------+---+ | Given | 02/27/2018 | 3 g | 100 | | | | 06:41 | | mL/hr | | | | PDT | | | | +-------+ +-----+-------+---+ +---+---+ | | | +---+---+ + +---------+ +---+---+---+ | electrolyte-A (PLASMALYTE-A) | New Bag | | | | | | solution Intravenous, Continuous | | 8 17:41 | | | | | PRN, Starting 02/23/18 at | | PDT | | | | | 1741, Anesthesia Intra-op | | | | | | + +---------+ +---+---+---+ +---------+ +---+---+---+ | New Bag | | | | | | | 8 19:18 | | | | | | PDT | | | | +---------+ +---+---+---+ +---+---+ | | | +---+---+ + +-------+ +---------+---+---+ | fentaNYL (SUBLIMAZE) injection | Given | | 100 mcg | | | | Intravenous, PRN, Starting Wed | | 8 17:43 | | | | | 02/23/18 at 1743, Anesthesia | | PDT | | | | | Intra-op | | | | | | + +-------+ +---------+---+---+ +-------+ +--------+---+---+ | Given | | 50 mcg | | | | | 8 21:20 | | | | | | PDT | | | | +-------+ +--------+---+---+ | Given | | 50 mcg | | | | | 8 21:22 | | | | | | PDT | | | | +-------+ +--------+---+---+ +---+---+ | | | +---+---+ + +-------+ +--------+---+---+ | flumazenil (ROMAZICON) | Given | | 0.3 mg | | | | injection PRN, Starting Wed | | 8 22:45 | | | | | 02/23/18 at 2245, Anesthesia | | PDT | | | | | Intra-op | | | | | | + +-------+ +--------+---+---+ +---+---+ | | | +---+---+ + +-------+ +--------+---+---+ | glycopyrrolate (ROBMANISHUL) | Given | | 0.6 mg | | | | injection PRN, Starting Wed | | 8 22:09 | | | | | 02/23/18 at 2209, Anesthesia | | PDT | | | | | Intra-op | | | | | | + +-------+ +--------+---+---+ +-------+ +--------+---+---+ | Given | | 0.2 mg | | | | | 8 22:11 | | | | | | PDT | | | | +-------+ +--------+---+---+ +---+---+ | | | +---+---+ + +-------+ +--------+---+---+ | heparin (porcine) 1000 UNIT/ML | Given | | 8,000 | | | | injection PRN, Starting Wed | | 8 19:50 | Units | | | | 02/23/18 at 1950, Anesthesia | | PDT | | | | | Intra-op | | | | | | + +-------+ +--------+---+---+ +-------+ +--------+---+---+ | Given | | 2,000 | | | | | 8 21:03 | Units | | | | | PDT | | | | +-------+ +--------+---+---+ +---+---+ | | | +---+---+ + +-------+ +--------+---+---+ | HYDROmorphone (DILAUDID) | Given | | 0.4 mg | | | | injection Intravenous, PRN, | | 8 19:16 | | | | | Starting 02/23/18 at 1825, | | PDT | | | | | Anesthesia Intra-op | | | | | | + +-------+ +--------+---+---+ +-------+ +--------+---+---+ | Given | | 0.5 mg | | | | | 8 19:45 | | | | | | PDT | | | | +-------+ +--------+---+---+ | Given | | 0.5 mg | | | | | 8 20:44 | | | | | | PDT | | | | +-------+ +--------+---+---+ +---+---+ | | | +---+---+ + +-------+ +-------+---+---+ | lidocaine 2 % (MDV) 2 % | Given | | 60 mg | | | | injection Intravenous, PRN, | | 8 17:45 | | | | | Starting 02/23/18 at 1745, | | PDT | | | | | Anesthesia Intra-op | | | | | | + +-------+ +-------+---+---+ +---+---+ | | | +---+---+ + +-------+ +------+---+---+ | metoprolol (LOPRESSOR) | Given | | 2 mg | | | | injection PRN, Starting Wed | | 8 22:48 | | | | | 02/23/18 at 2248, Anesthesia | | PDT | | | | | Intra-op | | | | | | + +-------+ +------+---+---+ +---+---+ | | | +---+---+ + +-------+ +------+---+---+ | midazolam (VERSED) injection | Given | | 2 mg | | | | PRN, Starting Wed02/23/18 at | | 8 17:41 | | | | | 1741, Anesthesia Intra-op | | PDT | | | | + +-------+ +------+---+---+ +---+---+ | | | +---+---+ + +-------+ +------+---+---+ | neostigmine (PROSTIGMINE) | Given | | 3 mg | | | | injection PRN, Starting Wed | | 8 22:09 | | | | | 02/23/18 at 2209, Anesthesia | | PDT | | | | | Intra-op | | | | | | + +-------+ +------+---+---+ +-------+ +--------+---+---+ | Given | | 1.5 mg | | | | | 8 22:11 | | | | | | PDT | | | | +-------+ +--------+---+---+ +---+---+ | | | +---+---+ + +-------+ +------+---+---+ | ondansetron (ZOFRAN) injection | Given | | 4 mg | | | | PRN, Nausea, Vomiting, Starting | | 8 22:00 | | | | | 02/23/18 at 2200, Anesthesia | | PDT | | | | | Intra-op | | | | | | + +-------+ +------+---+---+ +---+---+ | | | +---+---+ + + + +---------+-------+---+ | phenylephrine infusion | Rate/Dos | | 35 | 10.5 | | | Continuous PRN, Starting Wed | e Change | 8 20:51 | mcg/min | mL/hr | | | 02/23/18 at 1802, Anesthesia | | PDT | | | | | Intra-op | | | | | | + + + +---------+-------+---+ + + +---------+---------+---+ | Rate/Dose Change | | 30 | 9 mL/hr | | | | 8 21:01 | mcg/min | | | | | PDT | | | | + + +---------+---------+---+ | Restarted | | 10 | 3 mL/hr | | | | 8 21:25 | mcg/min | | | | | PDT | | | | + + +---------+---------+---+ +---+---+ | | | +---+---+ + +-------+ +--------+---+---+ | propofol (DIPRIVAN) injection | Given | | 200 mg | | | | Intravenous, PRN, Starting Wed | | 8 17:45 | | | | | 02/23/18 at 1745, Anesthesia | | PDT | | | | | Intra-op | | | | | | + +-------+ +--------+---+---+ +---+---+ | | | +---+---+ + +-------+ +-------+---+---+ | rocuronium (ZEMURON) injection | Given | | 10 mg | | | | PRN, Starting 02/23/18 at | | 8 19:16 | | | | | 1746, Anesthesia Intra-op | | PDT | | | | + +-------+ +-------+---+---+ +-------+ +-------+---+---+ | Given | | 20 mg | | | | | 8 19:45 | | | | | | PDT | | | | +-------+ +-------+---+---+ | Given | | 10 mg | | | | | 8 20:44 | | | | | | PDT | | | | +-------+ +-------+---+---+ +---+---+ | | | +---+---+ + +---------+ + +---+---+ | vancomycin (VANCOCIN) 1500 | New Bag | | 1,500 mg | | | | mg/250 mL IVPB 1,500 mg (rounded | | 8 23:14 | | | | | from 1,420.5 mg = 15 mg/kg | | PDT | | | | | 94.7 kg), Intravenous, | | | | | | | Administer over 90 Minutes, Every | | | | | | | 12 Hours, First dose on Wed | | | | | | | 02/22/18 at 1130, Please check | | | | | | | orders for trough time. Timing is | | | | | | | very important (60 min before a | | | | | | | dose). Nurses are not to | | | | | | | modify/change or order vancomycin | | | | | | | levels. ALL LEVELS WILL BE | | | | | | | ORDERED BY PHARMACIST. If timing | | | | | | | is incorrect or other error, | | | | | | | please MAR message pharmacist. | | | | | | | Please also keep doses on | | | | | | | schedule (within 30 min of | | | | | | | scheduled time). Hold dose if | | | | | | | level is greater than 20 | | | | | | | mcg/mL. Please MAR message | | | | | | | pharmacist with result. | | | | | | + +---------+ + +---+---+ +---------+ + +---+---+ | New Bag | 6/30/201 | 1,500 mg | | | | | 8 12:42 | | | | | | PDT | | | | +---------+ + +---+---+ | New Bag | | 1,500 mg | | | | | 8 23:57 | | | | | | PDT | | | | +---------+ + +---+---+ +---+---+ | | | +---+---+ in this encounter"
--- OUTSIDE RECORDS SUMMARY | ~2018-04-10 | XMS | Encounter Summary ---
Demographics + + + | Address | [address] | | | [place] [address] | + + + | Home Phone | | + + + | Preferred Language | Unknown | + + + | Marital Status | Single | + + + | Yarsanism Affiliation | Unknown | + + + | Race | Unknown | + + + | Ethnic Group | Unknown | + + + Author + + + | Author | [facility] [employer] [facility] | + + + | Organization | [facility] | + + + | Address | Unknown | + + + | Phone | Unavailable | + + + Support + + +---------+ + | Name | Relationship | Address | Phone | + + +---------+ + | Megan Walker | ECON | Unknown | | + + +---------+ + Care Team Providers + +------+ + | Care Speed Operator Name | Role | Phone | + +------+ + | Nicholas Claire MD | PCP | | + +------+ + Reason for Referral Consultation (Routine) + + + + + + + | Status | Reason | Specialty | Diagnoses / | Referred By | Referred To | | | | | Procedures | Contact | Contact | + + + + + + + | New Request | Specialty | Anticoagulati | Diagnoses | Lissy | [facility] | | | Services | on | Critical | MD Caroline | Anticoagulati | | | Required | | lower limb | [address] | on Clinic | | | | | ischemia | Blvd | [address] | | | | | | [place] | Bl[address] | | | | | | [address] | [place] | | | | | | Phone: | [phone] Phone: | | | | | | [phone] | [phone] | | | | | | Fax: | Fax: | | | | | | [phone] | [phone] | + + + + + + + Reason for Visit + + + | Reason | Comments | + + + | Referral | From clinic for complete occlusion of RLE graft from recent | | | surgery. | + + + | Post-op Problem | | + + + Auth/Cert +--------+--------+ + + + + | Status | Reason | Specialty | Diagnoses / | Referred By | Referred To | | | | | Procedures | Contact | Contact | +--------+--------+ + + + + | | | Internal | | | [facility] 7th | | | | Medicine | | | [address] | | | | | | | [address] | | | | | | | [address] | | | | | | | [place] | | | | | | | [address] Phone: | | | | | | | [phone] | +--------+--------+ + + + + Encounter Details +--------+ + + + + | Date | Type | Department | Care Team | Description | +--------+ + + + + | 03/11/ | Hospital | [facility] | Yordy Troy | Occlusion of graft | | 2018 - | Encounter | [facility] | Blane Chao MD [address] | of lower extremity, | | | | Floor [facility] | [address] | initial encounter | | 03/15/ | | [address] | [place] [address] | (HCC) (Primary Dx); | | 2018 | | [place] [address] | [phone] | Critical lower limb | | | | [phone] | | ischemia | | | | | Verna Dunn MD | | | | | | [address] | | | | | | [place] [address] | | | | | | Caroline Yuan MD | | | | | | [address] | | | | | | [place] [address] | | | | | | [phone] | | | | | | | | | | | | Pablo Weir, | | | | | | [address] | | | | | | [address] | | | | | | [place] [address] | | | | | | [phone] | | | | | | | | | | | | Valerie House, | | | | | | [address] | | | | | | [place] [address] | | | | | | [phone] | | | | | | | | +--------+ + + [...] + + + | Blood Pressure | 126/69 | 03/15/2018 11:44 AM PDT | + + + + | Pulse | 83 | 03/15/2018 11:44 AM PDT | + + + + | Temperature | 36.7 C (98 F) | 03/15/2018 11:44 AM PDT | + + + + | Respiratory Rate | 18 | 03/15/2018 11:44 AM PDT | + + + + | Oxygen Saturation | 100% | 03/15/2018 11:44 AM PDT | + + + + | Inhaled Oxygen | - | - | | Concentration | | | + + + + | Weight | 97 kg (213 lb 13.5 | 03/14/2018 3:45 AM PDT | | | oz) | | + + + + | Height | 160 cm (5' 3") | 03/11/2018 1:15 PM PDT | + + + + | Body Mass Index | 37.88 | 03/14/2018 3:45 AM PDT | + + + + in this encounter Discharge Summaries Caroline Yuan MD - 03/15/2018 8:45 AM PDTFormatting of this note may be different from t long original. [facility] Service: Hospitalist Discharge Summary Date of Admission: 03/11/2018 Date of Discharge: 03/15/2018 Discharge Provider: Caroline Yuan MD Consults: vascular surgery Discharge Diagnoses: Principal Problem: Occlusion of right femoral-popliteal bypass graft, initial encounter ([facility]) Active Problems: PVD (peripheral vascular disease) ([facility]) Essential hypertension DM (diabetes mellitus) ([facility]) Weakness generalized Debility Other hyperlipidemia Resolved Problems: * No resolved hospital problems. * HOSPITAL COURSE: This is a 57-year-old male with a past medical history of hypertension, diabetes mellitus t ype 2, peripheral vascular disease status post right peripheral vascular disease who was rec ently admitted at [facility] in January of 2018 due to chronic right foot ulcer, right foot gangren e and evidence of necrosis of the distal toes. Vascular surgery services were involved and Dr. Rashid performed right popliteal to TOOLER bypass and reversed OSF followed by right transmeta tarsal amputation on 02/25/2018. He was initially kept on IV antibiotics and later switched to Augmentin at the time of discharge on 03/01/2018. He was doing well in the first few da ys after discharge. He went for his routine followup with Podiatry and was found to have ne crosis of the suture line. Ultrasound was hence performed which showed that the bypass area was occluded and he was referred to the emergency department. In the emergency department he was hemodynamically stable. His initial CBC and CMP were st able. He was started on a heparin drip. Vascular Surgery was consulted. The patient under went thrombectomy and angioplasty of the right foot popliteal to TOOLER bypass graft, angioplas ty of the right popliteal artery. He tolerated the procedure. He was eventually transition ed to Coumadin with a therapeutic INR on discharge and he was continued on Plavix. His pain was controlled. He was evaluated by physical therapy who recommended discharge back to [facility]. The patient will go back to [place]. The patient was seen by Wound Care for wounds on bilateral heels which were present on admi ssion. He is non-weightbearing to his right lower extremity post-surgery. The patient will need to follow up with Dr. Ferrera and Dr. Garcia, his buttermaker continuous churn, as an outpatient in two weeks for a repeat arterial duplex. For his type 2 diabetes mellitus, his hemoglobin A1c, he was noted to have hypoglycemic epi sodes, hence his glimepiride was discontinued and he was restarted on Janumet. He will need to monitor his blood sugar at the senior care facility. All other chronic medical prob lems remain stable and were managed accordingly. DISCHARGE EXAM Vital Signs: BP 129/45 (BP Location: Right upper arm) | Pulse 81 | Temp 97.8 F (36.6 C) (Oral) | Resp 18 | Ht 1.6 m (5' 3") | Wt 97 kg (213 lb 13.5 oz) | SpO2 100% | BMI 37.88 kg/m Gen: AOX3. NAD HEENT: NCAT CV: RRR. S1S2 normal. no murmer, rubs, or gallops. No JVD Chest: CTA b/l Abd: SNTND. BS+, no gaurding or ridigity Ext: right TMA suture line with dark edges, no suture dehiscence; pulse difficult to palpat e, medial suture site c/d/i. 2+ DP Neuro: Motor/sensations intact. 2+ DTRs DATA CBC: Lab Results Component Value Date WBC 6.31 03/14/2018 RBC 3.47 (L) 03/14/2018 HGB 10.3 (L) 03/14/2018 HCT 29.9 (L) 03/14/2018 MCV 86.1 03/14/2018 MCH 29.7 03/14/2018 MCHC 34.5 03/14/2018 RDW 42.0 03/14/2018 PLT 249 03/14/2018 MPV 7.9 03/14/2018 DIFFTYPE AUTOMATED 03/14/2018 CMP: Lab Results Component Value Date NA 139 03/14/2018 K 4.1 03/14/2018 K 4.1 02/23/2018 CL 105 03/14/2018 CO2 27 03/14/2018 ANIONGAP 11 03/14/2018 GLUF 93 03/14/2018 BUN 15 03/14/2018 CREATININE 0.8 03/14/2018 BCR 19 03/14/2018 CA 8.6 03/14/2018 PROT 7.5 03/11/2018 ALB 2.6 (L) 03/11/2018 GLOB 4.9 03/11/2018 BILITOT 0.6 03/11/2018 ALP 95 03/11/2018 AST 23 03/11/2018 ALT 39 03/11/2018 EGFR >60 03/14/2018 BMP: Lab Results Component Value Date NA 139 03/14/2018 K 4.1 03/14/2018 K 4.1 02/23/2018 CL 105 03/14/2018 CO2 27 03/14/2018 ANIONGAP 11 03/14/2018 GLUF 93 03/14/2018 BUN 15 03/14/2018 CREATININE 0.8 03/14/2018 BCR 19 03/14/2018 CA 8.6 03/14/2018 EGFR >60 03/14/2018 Us Bypass Graft Lower Extremity Unilateral Result Date: 03/11/2018 1. Inflow via the right common femoral artery, superficial femoral artery and proximal pop liteal artery shows normal velocity and triphasic waveforms. 2. The distal popliteal-distal posterior tibial artery bypass graft is occluded and the distal posterior tibial artery is also occluded. 3. The anterior tibial and peroneal arteries show triphasic flow to the foot . Disposition: residential Condition: Stable Code Status: Full Code Discharge Instructions Protime-INR Standing Status: Future Standing Exp. Date: 03/15/19 Ambulatory referral to Anticoagulation Monitoring Referral Priority: Routine Referral Type: Consultation Referral Reason: Specialty Services Required Requested Specialty: Anticoagulation Number of Visits Requested: 1 Follow up: Nicholas Claire MD 2010 [address] [facility] [id number] Long Ferrera MD [address] [facility] [address] In 2 weeks Amilcar Garcia DPM [address] [facility] [address] [facility] [id number] In 1 week Discharge took 35 minutes, to include final examination, discussion of admission, and prepa ration of prescriptions, instructions for on-going care, follow-up and documentation of disc harge summary. Medication List START taking these medications warfarin 5 MG tablet QTY: 30 tablet Refills: 3 Commonly known as: COUMADIN Take 1 tablet by mouth Once daily-Coumadin. CHANGE how you take these medications glimepiride 2 MG tablet QTY: 30 tablet Refills: 11 Commonly known as: AMARYL Take 1 tablet by mouth every morning. What changed: medication strength how much to take CONTINUE taking these medications atorvastatin 40 MG tablet QTY: 30 tablet Refills: 11 Commonly known as: LIPITOR Take 1 tablet by mouth nightly. clopidogrel 75 MG tablet QTY: 90 tablet Refills: 0 Commonly known as: PLAVIX Take 1 tablet by mouth daily. HYDROcodone-acetaminophen 10-325 MG per tablet QTY: 30 tablet Refills: 0 Commonly known as: NORCO Take 1 tablet by mouth every 4 (four) hours as needed. JANUMET XR 50-500 MG Tb24 Refills: 0 Generic drug: SitaGLIPtin-MetFORMIN HCl LORazepam 0.5 MG tablet QTY: 30 tablet Refills: 0 Commonly known as: ATIVAN Take 1 tablet by mouth every 4 (four) hours as needed for Anxiety. losartan 25 MG tablet Refills: 0 Commonly known as: COZAAR metoprolol 25 MG tablet QTY: 30 tablet Refills: 11 Commonly known as: LOPRESSOR Take 0.5 tablets by mouth 2 (two) times daily. nicotine 21 MG/24HR QTY: 28 patch Refills: 0 Commonly known as: NICODERM CQ Place 1 patch onto the skin daily for 30 days. You might also be taking other medications not listed above. If you have questions about an y of your other medications, talk to the person who prescribed them or your Primary Care Pro vider. STOP taking these medications acetaminophen 325 MG tablet Commonly known as: TYLENOL aspirin 81 MG chewable tablet bisacodyl 10 MG suppository Commonly known as: DULCOLAX magnesium hydroxide 400 MG/5ML suspension Commonly known as: MILK OF MAGNESIA metFORMIN 500 MG tablet Commonly known as: GLUCOPHAGE Where to Get Your Medications You can get these medications from any pharmacy Bring a paper prescription for each of these medications HYDROcodone-acetaminophen 10-325 MG per tablet LORazepam 0.5 MG tablet warfarin 5 MG tablet Information about where to get these medications is not yet available Ask your nurse or doctor about these medications glimepiride 2 MG tablet Caroline Yuan MD 03/15/2018 8:53 AM in this encounter Discharge Instructions Caroline Yuan MD - 03/15/2018Wound care instructions: Pressure Injury Stage: unstageable Was Pressure Injury Present on Admission: Yes Bordered foam applied to heels and both heels floated on pillows. Education to patient. Per patient Dr. Garcia is managing his TMA incisional site, he believes he has ordered him I odosorb. Wound edges are dark, scant amount of bloody drainage expressed. Sutures present. Will apply Aquacel AG followed by transfer foam. The facility patient will be transferred to has the Iodosorb gel, along with Dr. Garcia's instructions (per patient), they can contin ue with this POC. in this encounter Medications at Time of Discharge + + +--------+---------+ + + | Medication | Sig. | Disp. | Refills | Start | End Date | | | | | | Date | | + + +--------+---------+ + + | atorvastatin | Take 1 tablet by | 30 | 11 | 02/29/20 | | | (LIPITOR) 40 MG | mouth nightly. | tablet | | 18 | 9 | | tablet | | | | | | + + +--------+---------+ + + | glimepiride | Take 1 tablet by | 30 | 11 | 03/15/20 | | | (AMARYL) 2 MG tablet | mouth every morning. | tablet | | 18 | 9 | + + +--------+---------+ + + | JANUMET XR 50-500 | Take 1 tablet by | | | 08/27/20 | | | MG TB24 | mouth every morning. | | | 17 | | + + +--------+---------+ + + | losartan (COZAAR) | Take 25 mg by mouth | | | 07/23/20 | | | 25 MG tablet | daily. | | | 17 | | + + +--------+---------+ + + | metoprolol | Take 0.5 tablets by | 30 | 11 | 02/29/20 | | | (LOPRESSOR) 25 MG | mouth 2 (two) times | tablet | | 18 | 9 | | tablet | daily. | | | | | + + +--------+---------+ + + | clopidogrel | Take 1 tablet by | 90 | 0 | 10/20/19 | | | (PLAVIX) 75 MG | mouth daily. | tablet | | 18 | 8 | | tablet | | | | | | + + +--------+---------+ + + | | Take 1 tablet by | 30 | 0 | 03/15/20 | | | HYDROcodone-acetamin | mouth every 4 (four) | tablet | | 18 | 8 | | ophen (NORCO) 10-325 | hours as needed. | | | | | | MG per tablet | | | | | | + + +--------+---------+ + + | LORazepam (ATIVAN) | Take 1 tablet by | 30 | 0 | 03/15/20 | | | 0.5 MG tablet | mouth every 4 (four) | tablet | | 18 | 8 | | | hours as needed for | | | | | | | Anxiety. | | | | | + + +--------+---------+ + + | nicotine (NICODERM | Place 1 patch onto | 28 | 0 | 02/29/20 | | | CQ) 21 MG/24HR | the skin daily for | patch | | 18 | 8 | | | 30 days. | | | | | + + +--------+---------+ + + | warfarin | Take 1 tablet by | 30 | 3 | 03/15/20 | | | (COUMADIN) 5 MG | mouth Once | tablet | | 18 | 8 | | tablet | daily-Coumadin. | | | | | + + +--------+---------+ + + as of this encounter Progress Notes Caroline Yuan MD - 03/14/2018 4:21 PM PDTFormatting of this note may be different from t long original. [facility] Service: Hospitalist Progress Note Hospital Day: LOS: 3 days Post-Op Day: * No surgery found * SUBJECTIVE Patient Summary: Per Dr. Dunn: Mr. Walker is a 57 yr old man with HTN, DM type 2, PVD, s/p right popliteal to TOOLER bypass and reversed OSV and TMA right foot for right foot toe gangre ne on 02/23/2018 was referred to the ED by vascular surgery after he was found to have occlus ion of the RLE graft. He was started on heparin drip and seen by vascular surgery. Patient underwent thrombectomy and angioplasty of right popliteal to TOOLER bypass graft, angioplasty o f right posterior artery. Events Overnight: Doing well, no complaints, pain controlled. Scheduled Medications atorvastatin 40 mg Oral Nightly clopidogrel 75 mg Oral Daily famotidine 20 mg Oral BID glimepiride 4 mg Oral QAM insulin lispro (human) 0-10 Units Subcutaneous TID AC insulin lispro (human) 0-5 Units Subcutaneous Nightly losartan 25 mg Oral Daily metoprolol 12.5 mg Oral BID nicotine 1 patch Transdermal Daily sitaGLIPtin 50 mg Oral Daily sodium chloride 10 mL Intravenous Q8H warfarin 5 mg Oral Daily Continuous Infusions dextrose heparin 50 units/mL 10 Units/kg/hr (03/14/18 1416) PRN Medications acetaminophen OR acetaminophen, dextrose, dextrose, dextrose, fentaNYL OR fentaNYL, glucagon, glucagon, heparin (porcine) 5000 unit/0.5mL, heparin (porcine) 5000 unit/0.5mL, H YDROcodone-acetaminophen OR HYDROcodone-acetaminophen, LORazepam, morphine OR morphi ne OR morphine, nicotine polacrilex, ondansetron OR ondansetron, polyethylene glycol , zolpidem OBJECTIVE Vital Signs: BP 130/75 (BP Location: Right upper arm) | Pulse 80 | Temp 98.5 F (36.9 C) (Oral) | Resp 20 | Ht 1.6 m (5' 3") | Wt 97 kg (213 lb 13.5 oz) | SpO2 98% | BMI 37.88 kg/m Gen: AOX3. NAD HEENT: NCAT CV: RRR. S1S2 normal. no murmer, rubs, or gallops. No JVD Chest: CTA b/l Abd: SNTND. BS+, no gaurding or ridigity Ext: right TMA suture line with dark edges, no suture dehiscence; pulse difficult to palpat e, medial suture site c/d/i. 2+ DP Neuro: Motor/sensations intact. 2+ DTRs DATA Recent Labs Lab 03/14/18 0405 03/13/18 0330 03/12/18 0452 WBC 6.31 6.73 6.44 HGB 10.3* 10.8* 10.6* HCT 29.9* 30.9* 30.8* PLT 249 259 262 NEUTOPHILPCT 71.13 77.13 79.70 MONOPCT 6.43 5.01 6.27 Recent Labs Lab 03/14/18 0405 03/13/18 0330 03/12/18 0452 03/11/18 1215 NA 139 140 139 139 K 4.1 3.8 4.3 4.5 CL 105 106 105 102 CO2 27 27 27 27 BUN 15 16 16 19 CREATININE 0.8 0.8 0.7 0.86 PROT -- -- -- 7.5 BILITOT -- -- -- 0.6 ALT -- -- -- 39 AST -- -- -- 23 Phosphorus: Lab Results Component Value Date PHOS 3.7 03/12/2018 Invalid input(s): LABALBU Recent Labs Lab 03/12/18 0452 MG 1.8 No results for input(s): AMYLASE in the last 168 hours. No results for input(s): PHART, PO2ART, ICY4JVN, C0AXMTTD, BEART in the last 168 hours. Recent Labs Lab 03/14/18 1212 03/14/18 0405 03/13/18 0330 03/12/18 0452 APTT 68* 127* 58* < > 34* INR -- 1.7 1.1 -- 1.1 < > = values in this interval not displayed. No results for input(s): TSH, T3FREE, FREET4 in the last 168 hours. Recent Labs Lab 03/11/18 1215 CKTOTAL 39* CKMBINDEX 3.3 DATA Us Bypass Graft Lower Extremity Unilateral Result Date: 03/11/2018 1. Inflow via the right common femoral artery, superficial femoral artery and proximal pop liteal artery shows normal velocity and triphasic waveforms. 2. The distal popliteal-distal posterior tibial artery bypass graft is occluded and the distal posterior tibial artery is also occluded. 3. The anterior tibial and peroneal arteries show triphasic flow to the foot . LEM LIST Principal Problem: Occlusion of right femoral-popliteal bypass graft, initial encounter ([facility]) Active Problems: PVD (peripheral vascular disease) ([facility]) Essential hypertension DM (diabetes mellitus) ([facility]) Weakness generalized Debility Other hyperlipidemia ASSESSMENT & PLAN Critical limb ischemia: s/p right fem-pop bypass graft. Continue heparin gtt and coumadin, INR 1.7. Will need repeat AM, can dc to SNF once reaches therapeutic range. Patient prefers to stay here until that and not be given lovenox SQ injections. Hypertension: BP controlled, continue home anti-hypertenisves. Type II DM: a1c 6.8. He has hypoglycemic episodes overnight. Will decrease dose of glimiper nadeen to 2mg dialy, continue januvia, and hold metformin. HLD: ontinue statin. AOCD: hb stable, no signs of bleeding, monitor. Disposition: Inpatient, return to [facility] likely in AM. Code Status: Full Code Caroline Yuan MD 03/14/2018 Verna Dunn MD - 03/13/2018 10:01 AM PDTFormatting of this note may be different from th e original. [facility] Service: Hospitalist Progress Note Hospital Day: LOS: 2 days SUBJECTIVE Patient Summary: Mr. Walker is a 57 yr old man with HTN, DM type 2, PVD, s/p right popliteal to TOOLER bypass and reversed OSV and TMA right foot for right foot toe gangrene on 02/23/2018 was referred to the ED by vascular surgery after he was found to have occlusion of the RLE graft. He was s tarted on heparin drip and seen by vascular surgery. Patient underwent thrombectomy and dolores oplasty of right popliteal to TOOLER bypass graft, angioplasty of right posterior artery. Events Overnight: Patient was seen today, has no complaint. Scheduled Medications atorvastatin 40 mg Oral Nightly clopidogrel 75 mg Oral Daily famotidine 20 mg Oral BID glimepiride 4 mg Oral QAM insulin lispro (human) 0-10 Units Subcutaneous TID AC insulin lispro (human) 0-5 Units Subcutaneous Nightly losartan 25 mg Oral Daily metoprolol 12.5 mg Oral BID nicotine 1 patch Transdermal Daily sitaGLIPtin 50 mg Oral Daily sodium chloride 10 mL Intravenous Q8H warfarin 5 mg Oral Daily Continuous Infusions dextrose heparin 50 units/mL 15 Units/kg/hr (03/13/18 0404) PRN Medications acetaminophen OR acetaminophen, dextrose, dextrose, dextrose, fentaNYL OR fentaNYL, glucagon, glucagon, heparin (porcine) 5000 unit/0.5mL, heparin (porcine) 5000 unit/0.5mL, H YDROcodone-acetaminophen OR HYDROcodone-acetaminophen, LORazepam, morphine OR morphi ne OR morphine, nicotine polacrilex, ondansetron OR ondansetron, polyethylene glycol , zolpidem OBJECTIVE Vital Signs: BP 105/65 (BP Location: Right upper arm) | Pulse 87 | Temp 97.7 F (36.5 C) (Axillary) | Resp 16 | Ht 1.6 m (5' 3") | Wt 96.3 kg (212 lb 4.9 oz) | SpO2 98% | BMI 37.61 kg/m Patient Vitals for the past 24 hrs: BP Temp Temp src Pulse Resp SpO2 Weight 03/13/18 0743 105/65 97.7 F (36.5 C) Axillary 87 16 98 % - 03/13/18 0353 110/64 97.2 F (36.2 C) Axillary 82 14 95 % 96.3 kg (212 lb 4.9 oz) 03/12/18 2321 119/63 97.8 F (36.6 C) Axillary 104 18 93 % - 03/12/18 1908 103/59 97.9 F (36.6 C) Oral 86 20 98 % - 03/12/18 1540 114/66 98.1 F (36.7 C) Oral 86 18 100 % - 03/12/18 1229 121/58 98.1 F (36.7 C) Oral 85 18 99 % - Intake/Output Summary (Last 24 hours) at 03/13/18 1001 Last data filed at 03/12/18 1855 Gross per 24 hour Intake 1518 ml Output 390 ml Net 1128 ml Physical Exam Constitutional: He is oriented to person, place, and time. Middle aged man sitting up in bed, not in any distress HENT: Head: Normocephalic and atraumatic. Mouth/Throat: Oropharynx is clear and moist. Eyes: Conjunctivae are normal. Pupils are equal, round, and reactive to light. Right eye ex hibits no discharge. Neck: Normal range of motion. Neck supple. No JVD present. Cardiovascular: Normal rate and regular rhythm. No murmur heard. Pulmonary/Chest: Effort normal and breath sounds normal. He has no wheezes. He has no rales . Abdominal: Soft. Bowel sounds are normal. There is no tenderness. There is no rebound. Musculoskeletal: He exhibits no edema. right TMA suture line with dark edges, no suture dehiscence; pulse difficult to palpate; me dial suture in right leg with area of dehiscence Lymphadenopathy: He has no cervical adenopathy. Neurological: He is alert and oriented to person, place, and time. No cranial nerve deficit . Skin: Skin is warm and dry. Psychiatric: Mood and affect normal. DATA CBC: Lab Results Component Value Date WBC 6.73 03/13/2018 RBC 3.57 (L) 03/13/2018 HGB 10.8 (L) 03/13/2018 HCT 30.9 (L) 03/13/2018 MCV 86.4 03/13/2018 MCH 30.1 03/13/2018 MCHC 34.9 03/13/2018 RDW 42.0 03/13/2018 PLT 259 03/13/2018 MPV 8.2 03/13/2018 DIFFTYPE AUTOMATED 03/13/2018 CMP: Lab Results Component Value Date NA 140 03/13/2018 K 3.8 03/13/2018 K 4.1 02/23/2018 CL 106 03/13/2018 CO2 27 03/13/2018 ANIONGAP 11 03/13/2018 GLUF 125 (H) 03/13/2018 BUN 16 03/13/2018 CREATININE 0.8 03/13/2018 BCR 20 03/13/2018 CA 8.6 03/13/2018 PROT 7.5 03/11/2018 ALB 2.6 (L) 03/11/2018 GLOB 4.9 03/11/2018 BILITOT 0.6 03/11/2018 ALP 95 03/11/2018 AST 23 03/11/2018 ALT 39 03/11/2018 EGFR >60 03/13/2018 IMAGES Us Bypass Graft Lower Extremity Unilateral Result Date: 03/11/2018 1. Inflow via the right common femoral artery, superficial femoral artery and proximal pop liteal artery shows normal velocity and triphasic waveforms. 2. The distal popliteal-distal posterior tibial artery bypass graft is occluded and the distal posterior tibial artery is also occluded. 3. The anterior tibial and peroneal arteries show triphasic flow to the foot . LEM LIST Principal Problem: Occlusion of right femoral-popliteal bypass graft, initial encounter ([facility]) Active Problems: PVD (peripheral vascular disease) ([facility]) Essential hypertension DM (diabetes mellitus) ([facility]) Weakness generalized Debility Other hyperlipidemia ASSESSMENT & PLAN Critical limb ischemia From occlusion of right femoral-popliteal bypass graft Continue coumadin as recommended by vascular surgery Continue heparin drip Daily INR, INR today 1.1 Continue plavix, statin Advised better glycemic control HTN Noted BP, adequate BP control Continue losartan, metoprolol Continue to monitor BP Type 2 DM Continue glimeperide, januvia Continue to hold d/c metformin for now as patient just had contrast exposure Glucose monitoring with insulin sliding scale Pending HbA1c Debility Continue PT, recommend return to SNF Consider acute blood loss anemia On top of anemia of chronic disease Will continue to monitor Disposition: For discharge once with therapeutic INR; option to continue coumadin with asha enox bridging at SNF; will ask case management's assistance Code Status: Full Code Verna Dunn MD 03/13/2018 10:01 Ashley Pichardo RN - 03/12/2018 1:29 PM PDTFormatting of this note may be different from the original. [facility] Day: LOS: 1 day Post-Op Day: * No surgery found * SUBJECTIVE Patient Summary: Wound care triggered to see patient for PI's to the bilateral heels, POA. Unstageable, as these are callused over. Patient states he got from his shoes rubbin g. He now has a diabetic shoe for his left foot that does not rub. He is NWB to his RLE po st surgery, so no footwear at present. OBJECTIVE Wound Incision Foot Anterior amputation site (Active) Drainage Amount Scant 03/12/2018 1:27 PM Drainage Description Sanguineous 03/12/2018 1:27 PM Dressing Applied Hydrofiber with silver;Foam 03/12/2018 1:27 PM Site Assessment Dusky;Dry;Black 03/12/2018 1:27 PM Gladys-wound Assessment Dark edges 03/12/2018 1:27 PM Closure Sutures 03/12/2018 1:27 PM Treatments Cleansed 03/12/2018 1:27 PM Dressing Changed New 03/12/2018 1:27 PM Number of days: 0 Wound Pressure Injury Heel Posterior bilateral heels, callused, unable to stage pressure in juries. (Active) Drainage Amount None 03/12/2018 1:27 PM Dressing Applied Foam border 03/12/2018 1:27 PM Size callused, bilateral heels, 1 cm round. 03/12/2018 1:27 PM Number of days: 0 PROBLEM LIST Principal Problem: Occlusion of right femoral-popliteal bypass graft, initial encounter ([facility]) Active Problems: PVD (peripheral vascular disease) ([facility]) Essential hypertension DM (diabetes mellitus) ([facility]) Weakness generalized Debility Other hyperlipidemia ASSESSMENT & PLAN Pressure Injury Stage: unstageable Was Pressure Injury Present on Admission: Yes Bordered foam applied to heels and both heels floated on pillows. Education to patient. Per patient Dr. Garcia is managing his TMA incisional site, he believes he has ordered him I odosorb. Wound edges are dark, scant amount of bloody drainage expressed. Sutures present. Will apply Aquacel AG followed by transfer foam. The facility patient will be transferred to has the Iodosorb gel, along with Dr. Garcia's instructions (per patient), they can contin ue with this POC. Thank you for allowing me to participate in the care of this patient. I will continue to follow with you. Ashley Morin RN, CWON 1:29 PM 03/12/2018Long Ferrera MD - 03/12/2018 10:37 AM [facility] Service: Vascular Surgery Progress Note S/p mechanical thrombectomy of right leg bypass graft. Doing well. Strong PT signals and graft signals this AM. Left groin with some bleeding overnight but no bleeding this morning on heparin gtt. Left groin soft without hematoma. OK to discharge patient once patient is fully anticoagulated (coumadin and plavix). Will see back in clinic in 2 weeks for repeat arterial duplex. Long Ferrera MD 03/12/2018Verna Dunn MD - 03/12/2018 8:28 AM PDTFormatting of this note may be differen t from the original. [facility] Service: Hospitalist Progress Note Hospital Day: LOS: 1 day SUBJECTIVE Patient Summary: Mr. Walker is a 57 yr old man with HTN, DM type 2, PVD, s/p right popliteal to TOOLER bypass and reversed OSV and TMA right foot for right foot toe gangrene on 02/23/2018 was referred to the ED by vascular surgery after he was found to have occlusion of the RLE graft. He was s tarted on heparin drip and seen by vascular surgery. Patient underwent thrombectomy and dolores oplasty of right popliteal to TOOLER bypass graft, angioplasty of right posterior artery. Events Overnight: Patient had left groin bleeding last night but resolved just with pressure application. Hep debbie was resumed only this morning. Patient had no complaint, now reports feeling better. We discussed about indications and ri sks of anticoagulation. Patient was agreeable and requests to follow with his PCP for coumad in dose adjustments. Scheduled Medications atorvastatin 40 mg Oral Nightly clopidogrel 75 mg Oral Daily famotidine 20 mg Oral BID glimepiride 4 mg Oral QAM losartan 25 mg Oral Daily metFORMIN 500 mg Oral Daily with breakfast And sitaGLIPtin 50 mg Oral Daily metoprolol 12.5 mg Oral BID nicotine 1 patch Transdermal Daily sodium chloride 10 mL Intravenous Q8H warfarin 5 mg Oral Daily Continuous Infusions heparin 50 units/mL 18 Units/kg/hr (03/12/18 0734) PRN Medications acetaminophen OR acetaminophen, fentaNYL OR fentaNYL, heparin (porcine) 5000 unit/0 .5mL, heparin (porcine) 5000 unit/0.5mL, HYDROcodone-acetaminophen OR HYDROcodone-acetam inophen, LORazepam, morphine OR morphine OR morphine, ondansetron OR ondansetron , polyethylene glycol, zolpidem OBJECTIVE Vital Signs: BP 106/66 (BP Location: Right upper arm) | Pulse 77 | Temp 98.3 F (36.8 C) (Oral) | Resp 18 | Ht 1.6 m (5' 3") | Wt 96.7 kg (213 lb 3 oz) | SpO2 99% | BMI 37.76 kg/m Patient Vitals for the past 24 hrs: BP Temp Temp src Pulse Resp SpO2 Height Weight 03/12/18 0730 106/66 98.3 F (36.8 C) Oral 77 18 99 % - - 03/12/18 0323 112/61 97 F (36.1 C) Temporal 79 18 95 % - - 03/11/18 2319 - 98.4 F (36.9 C) Oral 84 20 99 % - - 03/11/18 2300 119/73 - - - - - - - 03/11/18 2158 104/65 98.8 F (37.1 C) Oral 82 16 99 % - - 03/11/18 2118 117/69 - - 79 - - - - 03/11/18 2100 142/75 98 F (36.7 C) - 83 - 100 % - - 03/11/182035 110/70 97.9 F (36.6 C) Temporal 77 18 99 % - - 03/11/181999 117/73 98.2 F (36.8 C) - 83 - 100 % - - 03/11/18 1945 112/74 97.9 F (36.6 C) - 79 18 100 % - - 03/11/18 1930 108/71 97.7 F (36.5 C) - 78 20 100 % - - 03/11/18 1915 115/78 97.8 F (36.6 C) - 81 20 98 % - - 03/11/18 1900 125/75 97.7 F (36.5 C) - 80 20 98 % - - 03/11/18 1746 136/82 - - 85 20 100 % - - 03/11/18 1740 136/82 - - 85 21 100 % - - 03/11/18 1735 141/84 - - 84 20 100 % - - 03/11/18 1730 141/87 - - 88 16 100 % - - 03/11/18 1725 133/80 - - 86 18 100 % - - 03/11/18 1720 127/76 - - 88 16 100 % - - 03/11/18 1715 133/77 - - 92 16 100 % - - 03/11/18 1710 131/76 - - 91 18 100 % - - 03/11/18 1705 126/71 - - 91 16 100 % - - 03/11/18 1700 122/71 - - 92 16 100 % - - 03/11/18 1655 109/69 - - 87 18 100 % - - 03/11/18 1650 121/72 - - 88 18 100 % - - 03/11/18 1645 115/69 - - 88 16 100 % - - 03/11/18 1640 118/68 - - 85 16 100 % - - 03/11/18 1635 133/81 - - 80 18 100 % - - 03/11/18 1628 140/79 - - 83 20 100 % - - 03/11/18 1625 138/79 - - 81 22 100 % - - 03/11/18 1520 120/79 98.6 F (37 C) Oral 82 18 99 % - - 03/11/18 1315 112/70 98.6 F (37 C) Oral 80 18 100 % 1.6 m (5' 3") 96.7 kg (213 lb 3 oz) 03/11/18 1225 111/62 - - 83 - 100 % - - 03/11/18 1225 111/62 - - - - - - - 03/11/18 1142 115/54 98.1 F (36.7 C) Temporal 88 20 97 % - 96.7 kg (213 lb 3 oz) Intake/Output Summary (Last 24 hours) at 03/12/18 0828 Last data filed at 03/12/18 0505 Gross per 24 hour Intake 0 ml Output 1275 ml Net -1275 ml Physical Exam Constitutional: He is oriented to person, place, and time. Middle aged man, lying in bed, not in any distress HENT: Head: Normocephalic and atraumatic. Mouth/Throat: Oropharynx is clear and moist. Eyes: Conjunctivae are normal. Pupils are equal, round, and reactive to light. Right eye ex hibits no discharge. Neck: Normal range of motion. Neck supple. No JVD present. Cardiovascular: Normal rate and regular rhythm. No murmur heard. Pulmonary/Chest: Effort normal and breath sounds normal. He has no wheezes. He has no rales . Abdominal: Soft. Bowel sounds are normal. There is no tenderness. There is no rebound. Musculoskeletal: He exhibits no edema. Left femoral cath site with dry dressing, PD pulses palpable left; right TMA suture line wi th necrotic edges, no suture dehiscence; pulse difficult to palpate Lymphadenopathy: He has no cervical adenopathy. Neurological: He is alert and oriented to person, place, and time. No cranial nerve deficit . Skin: Skin is warm and dry. Psychiatric: Mood and affect normal. DATA CBC: Lab Results Component Value Date WBC 6.44 03/12/2018 RBC 3.54 (L) 03/12/2018 HGB 10.6 (L) 03/12/2018 HCT 30.8 (L) 03/12/2018 MCV 87.0 03/12/2018 MCH 30.0 03/12/2018 MCHC 34.5 03/12/2018 RDW 42.0 03/12/2018 PLT 262 03/12/2018 MPV 8.1 03/12/2018 DIFFTYPE AUTOMATED 03/12/2018 CMP: Lab Results Component Value Date NA 139 03/12/2018 K 4.3 03/12/2018 K 4.1 02/23/2018 CL 105 03/12/2018 CO2 27 03/12/2018 ANIONGAP 11 03/12/2018 GLUF 177 (H) 03/12/2018 BUN 16 03/12/2018 CREATININE 0.7 03/12/2018 BCR 23 03/12/2018 CA 8.6 03/12/2018 PROT 7.5 03/11/2018 ALB 2.6 (L) 03/11/2018 GLOB 4.9 03/11/2018 BILITOT 0.6 03/11/2018 ALP 95 03/11/2018 AST 23 03/11/2018 ALT 39 03/11/2018 EGFR >60 03/12/2018 IMAGES Us Bypass Graft Lower Extremity Unilateral Result Date: 03/11/2018 1. Inflow via the right common femoral artery, superficial femoral artery and proximal pop liteal artery shows normal velocity and triphasic waveforms. 2. The distal popliteal-distal posterior tibial artery bypass graft is occluded and the distal posterior tibial artery is also occluded. 3. The anterior tibial and peroneal arteries show triphasic flow to the foot . LEM LIST Principal Problem: Occlusion of right femoral-popliteal bypass graft, initial encounter ([facility]) Active Problems: PVD (peripheral vascular disease) ([facility]) Essential hypertension DM (diabetes mellitus) ([facility]) Weakness generalized Debility Other hyperlipidemia ASSESSMENT & PLAN Critical limb ischemia From occlusion of right femoral-popliteal bypass graft Continue heparin drip Vascular surgery recommended additional anticoagulation with warfrain Daily INR Continue plavix, statin Await additional recommendations from vascular surgery Advised better glycemic control HTN Noted BP, adequate BP control Continue losartan, metoprolol Continue to monitor BP Type 2 DM Continue glimeperide, januvia Will d/c metformin for now as patient just had contrast exposure Glucose monitoring with insulin sliding scale Check HbA1c Debility PT Consider acute blood loss anemia On top of anemia of chronic disease Will continue to monitor Disposition: For discharge once cleared by vascular surgery Code Status: Full Code Verna Dunn MD 03/12/2018 8:28 Jeferson Kan RN - 03/11/2018 7:19 PM PDTOn arrival back from cathlab p t noted to have saturated Lt femoral dressing. Site assessed by palpation at which time dres sing ruptured releasing a moderate amount of sanguinous drainage. Pressure immediately appli ed. Iban ARIZA contacted (operating physician) who requested 20 minutes of pressure to be held. 20 minutes of pressure held, new dressing applied with no drainage and soft skin to palpatio n. AYDE Duque Bryce, RN - 03/11/2018 3:24 PM PDTLab reported aptt greater than 240. Heparin gtt stopped, notified, RN requested from MD to redraw as RN has concern for barrera, MD gerald rebolledo. AYDE Duque Abigail S [facility] - 03/11/2018 2:17 PM PDTFormatting of this note may be different from the original. Clinical Pharmacy Note: Renal Monitoring Arsenio Walker 57 y.o. male Ht Readings from Last 1 Encounters: 03/11/18 1.6 m (5' 3") Wt Readings from Last 1 Encounters: 03/11/18 96.7 kg (213 lb 3 oz) Serum creatinine: 0.86 mg/dL 03/11/18 1215 Estimated creatinine clearance: 99.9 mL/min Pharmacy dosing for renal function per Dr. Troy. Currently, there are no medications needing to be adjusted. Pharmacy will continue to monit or for changes in medication orders and in renal function and adjust accordingly. Melisa Soni, Ran 03/11/2018 2:17 PM in this encounter Plan of Treatment +--------+---------+ + + + | Date | Type | Specialty | Care Team | Description | +--------+---------+ + + + | 04/18/ | Office | Vascular Surgery | Chris Duggan DNP | | | 2018 | Visit | | [address] | | | | | | [place] | | | | | | [address] | | | | | | | | +--------+---------+ + + + + +--------+ + + | Name | Priori | Associated Diagnoses | Order Schedule | | | ty | | | + +--------+ + + | Protime-INR | Routin | Critical lower | Expected: | | | e | limb ischemia | 03/18/2018, Expires: | | | | | 03/15/2019 | + +--------+ + + + +--------+ + + | Name | Priori | Associated Diagnoses | Order Schedule | | | ty | | | + +--------+ + + | Ambulatory referral to | Routin | Critical lower | Ordered: 03/15/2018 | | Anticoagulation Monitoring | e | limb ischemia | | + +--------+ + + as of this encounter Procedures + +--------+ + + + | Procedure Name | Priori | Date/Time | Associated Diagnosis | Comments | | | ty | | | | + +--------+ + + + | POCT GLUCOSE | Routin | 03/15/2018 | | Results for this | | | e | 12:07 PM | | procedure are in the | | | | PDT | | results section. | + +--------+ + + + | APTT | MICHAELA | 03/15/2018 | | Results for this | | | | 9:10 AM | | procedure are in the | | | | PDT | | results section. | + +--------+ + + + | POCT GLUCOSE | Routin | 03/15/2018 | | Results for this | | | e | 6:03 AM | | procedure are in the | | | | PDT | | results section. | + +--------+ + + + | APTT | MICHAELA | 03/15/2018 | | Results for this | | | | 2:50 AM | | procedure are in the | | | | PDT | | results section. | + +--------+ + + + | PROTIME-INR | Routin | 03/15/2018 | | Results for this | | | e | 2:50 AM | | procedure are in the | | | | PDT | | results section. | + +--------+ + + + | POCT GLUCOSE | Routin | 03/14/2018 | | Results for this | | | e | 8:48 PM | | procedure are in the | | | | PDT | | results section. | + +--------+ + + + | APTT | STAT | 03/14/2018 | | Results for this | | | | 8:09 PM | | procedure are in the | | | | PDT | | results section. | + +--------+ + + + | POCT GLUCOSE | Routin | 03/14/2018 | | Results for this | | | e | 4:37 PM | | procedure are in the | | | | PDT | | results section. | + +--------+ + + + | APTT | STAT | 03/14/2018 | | Results for this | | | | 12:12 PM | | procedure are in the | | | | PDT | | results section. | + +--------+ + + + | POCT GLUCOSE | Routin | 03/14/2018 | | Results for this | | | e | 11:38 AM | | procedure are in the | | | | PDT | | results section. | + +--------+ + + + | POCT GLUCOSE | Routin | 03/14/2018 | | Results for this | | | e | 5:16 AM | | procedure are in the | | | | PDT | | results section. | + +--------+ + + + | APTT | MICHAELA | 03/14/2018 | | Results for this | | | | 4:05 AM | | procedure are in the | | | | PDT | | results section. | + +--------+ + + + | PROTIME-INR | Routin | 03/14/2018 | | Results for this | | | e | 4:05 AM | | procedure are in the | | | | PDT | | results section. | + +--------+ + + + | CBC W/AUTO DIFF | Routin | 03/14/2018 | | Results for this | | (REFLEX TO MANUAL) | e - AM | 4:05 AM | | procedure are in the | | | | PDT | | results section. | + +--------+ + + + | BASIC METABOLIC | Routin | 03/14/2018 | | Results for this | | PANEL | e - AM | 4:05 AM | | procedure are in the | | | | PDT | | results section. | + +--------+ + + + | POCT GLUCOSE | Routin | 03/14/2018 | | Results for this | | | e | 12:05 AM | | procedure are in the | | | | PDT | | results section. | + +--------+ + + + | POCT GLUCOSE | Routin | 03/13/2018 | | Results for this | | | e | 10:36 PM | | procedure are in the | | | | PDT | | results section. | + +--------+ + + + | POCT GLUCOSE | Routin | 03/13/2018 | | Results for this | | | e | 10:15 PM | | procedure are in the | | | | PDT | | results section. | + +--------+ + + + | POCT GLUCOSE | Routin | 03/13/2018 | | Results for this | | | e | 10:03 PM | | procedure are in the | | | | PDT | | results section. | + +--------+ + + + | POCT GLUCOSE | Routin | 03/13/2018 | | Results for this | | | e | 4:05 PM | | procedure are in the | | | | PDT | | results section. | + +--------+ + + + | POCT GLUCOSE | Routin | 03/13/2018 | | Results for this | | | e | 10:56 AM | | procedure are in the | | | | PDT | | results section. | + +--------+ + + + | POCT GLUCOSE | Routin | 03/13/2018 | | Results for this | | | e | 5:58 AM | | procedure are in the | | | | PDT | | results section. | + +--------+ + + + | APTT | STAT | 03/13/2018 | | Results for this | | | | 3:30 AM | | procedure are in the | | | | PDT | | results section. | + +--------+ + + + | PROTIME-INR | Routin | 03/13/2018 | | Results for this | | | e | 3:30 AM | | procedure are in the | | | | PDT | | results section. | + +--------+ + + + | CBC W/AUTO DIFF | Routin | 03/13/2018 | | Results for this | | (REFLEX TO MANUAL) | e | 3:30 AM | | procedure are in the | | | | PDT | | results section. | + +--------+ + + + | HEMOGLOBIN A1C | Add-On | 03/13/2018 | | Results for this | | | | 3:30 AM | | procedure are in the | | | | PDT | | results section. | + +--------+ + + + | BASIC METABOLIC | Routin | 03/13/2018 | | Results for this | | PANEL | e | 3:30 AM | | procedure are in the | | | | PDT | | results section. | + +--------+ + + + | POCT GLUCOSE | Routin | 03/12/2018 | | Results for this | | | e | 9:43 PM | | procedure are in the | | | | PDT | | results section. | + +--------+ + + + | APTT | STAT | 03/12/2018 | | Results for this | | | | 9:24 PM | | procedure are in the | | | | PDT | | results section. | + +--------+ + + + | POCT GLUCOSE | Routin | 03/12/2018 | | Results for this | | | e | 4:31 PM | | procedure are in the | | | | PDT | | results section. | + +--------+ + + + | APTT | STAT | 03/12/2018 | | Results for this | | | | 1:30 PM | | procedure are in the | | | | PDT | | results section. | + +--------+ + + + | POCT GLUCOSE | Routin | 03/12/2018 | | Results for this | | | e | 12:41 PM | | procedure are in the | | | | PDT | | results section. | + +--------+ + + + | APTT | STAT | 03/12/2018 | | Results for this | | | | 4:52 AM | | procedure are in the | | | | PDT | | results section. | + +--------+ + + + | PROTIME-INR | Routin | 03/12/2018 | | Results for this | | | e - AM | 4:52 AM | | procedure are in the | | | | PDT | | results section. | + +--------+ + + + | CBC W/AUTO DIFF | Routin | 03/12/2018 | | Results for this | | (REFLEX TO MANUAL) | e - AM | 4:52 AM | | procedure are in the | | | | PDT | | results section. | + +--------+ + + + | PHOSPHOROUS | Routin | 03/12/2018 | | Results for this | | | e - AM | 4:52 AM | | procedure are in the | | | | PDT | | results section. | + +--------+ + + + | MAGNESIUM | Routin | 03/12/2018 | | Results for this | | | e - AM | 4:52 AM | | procedure are in the | | | | PDT | | results section. | + +--------+ + + + | HEMOGLOBIN A1C | Add-On | 03/12/2018 | | Results for this | | | | 4:52 AM | | procedure are in the | | | | PDT | | results section. | + +--------+ + + + | BASIC METABOLIC | Routin | 03/12/2018 | | Results for this | | PANEL | e - AM | 4:52 AM | | procedure are in the | | | | PDT | | results section. | + +--------+ + + + | APTT | Timed | 03/11/2018 | | Results for this | | | | 11:55 PM | | procedure are in the | | | | PDT | | results section. | + +--------+ + + + | APTT | Timed | 03/11/2018 | | Results for this | | | | 6:37 PM | | procedure are in the | | | | PDT | | results section. | + +--------+ + + + | IR GUIDANCE VASCULAR | Routin | 03/11/2018 | | Results for this | | ACCESS US | e | 6:13 PM | | procedure are in the | | | | PDT | | results section. | + +--------+ + + + | IR THROMBECTOMY | Routin | 03/11/2018 | | Results for this | | ARTERIAL INCLUDES | e | 5:58 PM | | procedure are in the | | THOMBOLYTIC | | PDT | | results section. | | INJECTION | | | | | + +--------+ + + + | IR ANGIOGRAM | Routin | 03/11/2018 | | Results for this | | EXTREMITY RIGHT | e | 5:58 PM | | procedure are in the | | | | PDT | | results section. | + +--------+ + + + | APTT | STAT | 03/11/2018 | | Results for this | | | | 3:38 PM | | procedure are in the | | | | PDT | | results section. | + +--------+ + + + | APTT | MICHAELA | 03/11/2018 | | Results for this | | | | 2:19 PM | | procedure are in the | | | | PDT | | results section. | + +--------+ + + + | [facility] CARD PANEL W/O | STAT | 03/11/2018 | | Results for this | | TRP (ED ONLY) | | 12:15 PM | | procedure are in the | | | | PDT | | results section. | + +--------+ + + + in this encounter Results POCT glucose (03/15/2018 12:07 PM) + + + + + | Component | Value | Ref Range | Performed At | + + + + + | GLUCOSE,POC SCREEN | 168 (H)Comment: Testing | 65 - 99 mg/dL | [facility] | | | performed at [facility];[address] | | | | | [address];[place] | | | | | [address] | | | + + + + + + + + + + | Performing | Address | City/State/Zipcode | Phone Number | | Organization | | | | + + + + + | [facility] | [address] | [place] [address] | | + + + + + APTT (03/15/2018 9:10 AM) + + + + + | Component | Value | Ref Range | Performed At | + + + + + | APTT | 53 (H)Comment: Testing | 23 - 32 seconds | [facility] | | | performed at [facility];[address] | | | | | [address];[place] | | | | | [address] | | | + + + + + + + | Specimen | + + | Blood | + + + + + + + | Performing | Address | City/State/Zipcode | Phone Number | | Organization | | | | + + + + + | [facility] | [address] | [place] [address] | | + + + + + POCT glucose (03/15/2018 6:03 AM) + + + + + | Component | Value | Ref Range | Performed At | + + + + + | GLUCOSE,POC SCREEN | 157 (H)Comment: Testing | 65 - 99 mg/dL | [facility] | | | performed at [facility];[address];[place] | | | | | [address] | | | + + + + + + + + + + | Performing | Address | City/State/Zipcode | Phone Number | | Organization | | | | + + + + + | [facility] | [address] | [place] [address] | | + + + + + aPTT (03/15/2018 2:50 AM) + + + + + | Component | Value | Ref Range | Performed At | + + + + + | APTT | 68 (H)Comment: Testing | 23 - 32 seconds | [facility] | | | performed at [facility];[address];[place] | | | | | [address] | | | + + + + + + + + + + | Performing | Address | City/State/Zipcode | Phone Number | | Organization | | | | + + + + + | [facility] | [address] | [place] [address] | | + + + + + Protime-INR (03/15/2018 2:50 AM) + + + + + | Component | Value | Ref Range | Performed At | + + + + + | INR | 2.0Comment: REFERENCE | | [facility] | | | RANGE:0.9 [...] | | | | | performed at [facility];[address] | | | | | [address];[place], [place] | | | | | [address] | | | + + + + + + + | Specimen | + + | Blood | + + + + + + + | Performing | Address | City/State/Zipcode | Phone Number | | Organization | | | | + + + + + | [facility] | [address] [facility] | [place] [address] | | + + + + + POCT glucose (03/14/2018 8:48 PM) + + + + + | Component | Value | Ref Range | Performed At | + + + + + | GLUCOSE,POC SCREEN | 192 (H)Comment: Testing | 65 - 99 mg/dL | [facility] | | | performed at [facility];[address] | | | | | [address];[place] | | | | | [address] | | | + + + + + + + + + + | Performing | Address | City/State/Zipcode | Phone Number | | Organization | | | | + + + + + | [facility] | [address] | [place] [address] | | + + + + + APTT (03/14/2018 8:09 PM) + + + + + | Component | Value | Ref Range | Performed At | + + + + + | APTT | 57 (H)Comment: Testing | 23 - 32 seconds | [facility] | | | performed at [facility];[address] | | | | | [address];[place] | | | | | [address] | | | + + + + + + + | Specimen | + + | Blood | + + + + + + + | Performing | Address | City/State/Zipcode | Phone Number | | Organization | | | | + + + + + | [facility] | [address] | [place] [address] | | + + + + + POCT glucose (03/14/2018 4:37 PM) + + + + + | Component | Value | Ref Range | Performed At | + + + + + | GLUCOSE,POC SCREEN | 97Comment: Testing | 65 - 99 mg/dL | [facility] | | | performed at [facility];[address] | | | | | [address];[place] | | | | | [address] | | | + + + + + + + + + + | Performing | Address | City/State/Zipcode | Phone Number | | Organization | | | | + + + + + | [facility] | [address] | [place] [address] | | + + + + + APTT (03/14/2018 12:12 PM) + + + + + | Component | Value | Ref Range | Performed At | + + + + + | APTT | 68 (H)Comment: Testing | 23 - 32 seconds | [facility] | | | performed at [facility];[address];[place] | | | | | [address] | | | + + + + + + + | Specimen | + + | Blood | + + + + + + + | Performing | Address | City/State/Zipcode | Phone Number | | Organization | | | | + + + + + | [facility] | [address] | [place] [address] | | + + + + + POCT glucose (03/14/2018 11:38 AM) + + + + + | Component | Value | Ref Range | Performed At | + + + + + | GLUCOSE,POC SCREEN | 143 (H)Comment: Testing | 65 - 99 mg/dL | [facility] | | | performed at [facility];[address] | [address] | | [address];[place] | | | | | [address] | | | + + + + + + + + + + | Performing | Address | City/State/Zipcode | Phone Number | | Organization | | | | + + + + + | [facility] | [address] | [place] [address] | | + + + + + POCT glucose (03/14/2018 5:16 AM) + + + + + | Component | Value | Ref Range | Performed At | + + + + + | GLUCOSE,POC SCREEN | 110 (H)Comment: Testing | 65 - 99 mg/dL | [facility] | | | performed at [facility];[address] | | | | | [address];[place], [place] | | | | | [address] | | | + + + + + + + + + + | Performing | Address | City/State/Zipcode | Phone Number | | Organization | | | | + + + + + | [facility] | [address] | [place] [address] | | + + + + + Protime-INR (03/14/2018 4:05 AM) + + + + + | Component | Value | Ref Range | Performed At | + + + + + | INR | 1.7Comment: REFERENCE | | [facility] | | | RANGE:0.9 [...] | | | | | performed at [facility];[address];[place] | | | | | [address] | | | + + + + + + + | Specimen | + + | Blood | + + + + + + + | Performing | Address | City/State/Zipcode | Phone Number | | Organization | | | | + + + + + | [facility] | [address] | [place] [address] | | + + + + + APTT (03/14/2018 4:05 AM) + + + + + | Component | Value | Ref Range | Performed At | + + + + + | APTT | 127 (HH)Comment: CALLED | 23 - 32 seconds | [facility] | | | NURSING UNITREAD BACK | | | | | RESULTS VERIFIEDPATRICIA | | | | | M IN 7RP AT 0502 BY | | | | | TDTesting performed at | | | | | [facility];[address] [facility] | | | | | [address];[place] [address] | | | + + + + + + + | Specimen | + + | Blood | + + + + + + + | Performing | Address | City/State/Zipcode | Phone Number | | Organization | | | | + + + + + | [facility] | [address] | [place] [address] | | + + + + + CBC W/Auto Diff (Reflex to Manual) (03/14/2018 4:05 AM) + + + + + | Component | Value | Ref Range | Performed At | + + + + + | WBC | 6.31 | 3.80 - 11.00 K/uL | [facility] | | | | | LABORATORY | + + + + + | RBC | 3.47 (L) | 4.20 - 5.70 M/uL | [facility] | | | | | LABORATORY | + + + + + | HGB | 10.3 (L) | 13.2 - 17.0 g/dL | [facility] | | | | | LABORATORY | + + + + + | HCT | 29.9 (L) | 39.0 - 50.0 % | [facility] | | | | | LABORATORY | + + + + + | MCV | 86.1 | 80.0 - 100.0 fl | [facility] | | | | | LABORATORY | + + + + + | MCH | 29.7 | 27.0 - 34.0 pg | [facility] | | | | | LABORATORY | + + + + + | MCHC | 34.5 | 32.0 - 35.5 g/dL | [facility] | | | | | LABORATORY | + + + + + | RDW SD | 42.0 | 37 - 53 fl | [facility] | | | | | LABORATORY | + + + + + | PLT | 249 | 150 - 400 K/uL | [facility] | | | | | LABORATORY | + + + + + | MPV | 7.9 | fl | [facility] | | | | | LABORATORY | + + + + + | DIFF TYPE | AUTOMATED | | [facility] | | | | | LABORATORY | + + + + + | NEUTROPHILS | 71.13 | % | [facility] | | | | | LABORATORY | + + + + + | LYMPHOCYTES | 20.27 | % | [facility] | | | | | LABORATORY | + + + + + | MONOCYTES | 6.43 | % | [facility] | | | | | LABORATORY | + + + + + | EOSINOPHILS | 1.23 | % | [facility] | | | | | LABORATORY | + + + + + | BASOPHILS | 0.94 | % | [facility] | | | | | LABORATORY | + + + + + | NEUTROPHILS ABS | 4.49 | 1.90 - 7.40 K/uL | [facility] | | | | | LABORATORY | + + + + + | LYMPHOCYTES ABS | 1.28 | 1.00 - 3.90 K/uL | [facility] | | | | | LABORATORY | + + + + + | MONOCYTES ABS | 0.41 | 0.00 - 0.80 K/uL | [facility] | | | | | LABORATORY | + + + + + | EOSINOPHILS ABS | 0.08 | 0.00 - 0.50 K/uL | [facility] | | | | | LABORATORY | + + + + + | BASOPHILS ABS | 0.06Comment: Testing | 0.00 - 0.10 K/uL | [facility] | | | performed at [facility], [address] | | LABORATORY | | | [address], | | | | | [place] [address] | | | + + + + + + + | Specimen | + + | Blood | + + + + + + + | Performing | Address | City/State/Zipcode | Phone Number | | Organization | | | | + + + + + | [facility] | [address] | [place] [address] | [phone] | | LABORATORY | [address] | | | + + + + + Basic metabolic panel (03/14/2018 4:05 AM) + + + + + | [...] + + + + | CHLORIDE | 105 | 99 - 109 mmol/L | [facility] [...] + + + + | BUN/CREAT | 19 | | [facility] | | | | | LABORATORY | + + + + + | CALCIUM | 8.6 | 8.5 - 10.5 mg/dL | [facility] [...] | | | | | performed at [facility], [address] | | | | | [facility], | | | | | [place] [address] | | | + + + + + + + | Specimen | + + | Blood | + + + + + + + | Performing | Address | City/State/Zipcode | Phone Number | | Organization | | | | + + + + + | [facility] | [address] | [place] [address] | [phone] | | LABORATORY | [address] | | | + + + + + POCT glucose (03/14/2018 12:05 AM) + + + + + | Component | Value | Ref Range | Performed At | + + + + + | GLUCOSE,POC SCREEN | 119 (H)Comment: Testing | 65 - 99 mg/dL | [facility] | | | performed at [facility];[address] | | | | | [address];[place] | | | | | [address] | | | + + + + + + + + + + | Performing | Address | City/State/Zipcode | Phone Number | | Organization | | | | + + + + + | [facility] | [address] | [place] [address] | | + + + + + POCT glucose (03/13/2018 10:36 PM) + + + + + | Component | Value | Ref Range | Performed At | + + + + + | GLUCOSE,POC SCREEN | 75Comment: Testing | 65 - 99 mg/dL | [facility] | | | performed at [facility];[address] | | | | [address];[place] | | | | | [address] | | | + + + + + + + + + + | Performing | Address | City/State/Zipcode | Phone Number | | Organization | | | | + + + + + | [facility] | [address] | [facility] [address] | | + + + + + POCT glucose (03/13/2018 10:15 PM) + + + + + | Component | Value | Ref Range | Performed At | + + + + + | GLUCOSE,POC SCREEN | 61 (L)Comment: Testing | 65 - 99 mg/dL | [facility] | | | performed at [facility];[address] | | | | | [address];[place] | | | | | [address] | | | + + + + + + + + + + | Performing | Address | City/State/Zipcode | Phone Number | | Organization | | | | + + + + + | [facility] | [address] | [place] [address] | | + + + + + POCT glucose (03/13/2018 10:03 PM) + + + + + | Component | Value | Ref Range | Performed At | + + + + + | GLUCOSE,POC SCREEN | 51 (L)Comment: Testing | 65 - 99 mg/dL | [facility] | | | performed at [facility];[address] | | | | | [address];[place] | | | | | [address] | | | + + + + + + + + + + | Performing | Address | City/State/Zipcode | Phone Number | | Organization | | | | + + + + + | [facility] | [address] | [place] [address] | | + + + + + POCT glucose (03/13/2018 4:05 PM) + + + + + | Component | Value | Ref Range | Performed At | + + + + + | GLUCOSE,POC SCREEN | 81Comment: Testing | 65 - 99 mg/dL | [facility] | | | performed at [facility];[address] | | | | | [address];[place] | | | | | [address] | | | + + + + + + + + + + | Performing | Address | City/State/Zipcode | Phone Number | | Organization | | | | + + + + + | [facility] | [address] | [place] [address] | | + + + + + POCT glucose (03/13/2018 10:56 AM) + + + + + | Component | Value | Ref Range | Performed At | + + + + + | GLUCOSE,POC SCREEN | 73Comment: Testing | 65 - 99 mg/dL | [facility] | | | performed at [facility];[address] | | | | | [address];[place], [place] | | | | | [address] | | | + + + + + + + + + + | Performing | Address | City/State/Zipcode | Phone Number | | Organization | | | | + + + + + | [facility] | [address] | [place] [address] | | + + + + + POCT glucose (03/13/2018 5:58 AM) + + + + + | Component | Value | Ref Range | Performed At | + + + + + | GLUCOSE,POC SCREEN | 105 (H)Comment: Testing | 65 - 99 mg/dL | [facility] | | | performed at [facility];[address] | [address] | [address];[place] | | | | | [address] | | | + + + + + + + + + + | Performing | Address | City/State/Zipcode | Phone Number | | Organization | | | | + + + + + | [facility] | [address] | [place] [address] | | + + + + + Hemoglobin A1c (03/13/2018 3:30 AM) + + + + + | Component | Value | Ref Range | Performed At | + + + + + | HEMOGLOBIN A1C | 6.8 (H)Comment: The | 4.0 - 6.0 % | [facility] | | | [place] Diabetes | | LABORATORY | | | [...] + + + | ESTIMATED AVG | 148Comment: The ADA | mg/dL | [facility] | | GLUCOSE | considers an eAG [...] | | | | | performed at [facility], [address] | | | | | [facility], | | | | | [place] [address] | | | + + + + + + + | Specimen | + + | Blood | + + + + + + + | Performing | Address | City/State/Zipcode | Phone Number | | Organization | | | | + + + + + | [facility] | [address] | [place] [address] | [phone] | | LABORATORY | [address] | | | + + + + + Protime-INR (03/13/2018 3:30 AM) + + + + + | Component | Value | Ref Range | Performed At | + + + + + | INR | 1.1Comment: REFERENCE | | [facility] | | | RANGE:0.9 [...] | | | | | performed at [facility];[address] | | | | | [address];[place] | | | | | [address] | | | + + + + + + + + + + | Performing | Address | City/State/Zipcode | Phone Number | | Organization | | | | + + + + + | [facility] | [address] | [place] [address] | | + + + + + CBC W/Auto Diff (Reflex to Manual) (03/13/2018 3:30 AM) + + + + + | Component | Value | Ref Range | Performed At | + + + + + | WBC | 6.73 | 3.80 - 11.00 K/uL | [facility] | | | | | LABORATORY | + + + + + | RBC | 3.57 (L) | 4.20 - 5.70 M/uL | [facility] | | | | | LABORATORY | + + + + + | HGB | 10.8 (L) | 13.2 - 17.0 g/dL | [facility] | | | | | LABORATORY | + + + + + | HCT | 30.9 (L) | 39.0 - 50.0 % | [facility] | | | | | LABORATORY | + + + + + | MCV | 86.4 | 80.0 - 100.0 fl | [facility] | | | | | LABORATORY | + + + + + | MCH | 30.1 | 27.0 - 34.0 pg | [facility] [...] + + + + | PLT | 259 | 150 - 400 K/uL | [facility] | | | | | LABORATORY | + + + + + | MPV | 8.2 | fl | [facility] | | | | | LABORATORY | + + + + + | DIFF TYPE | AUTOMATED | | [facility] | | | | | LABORATORY | + + + + + | NEUTROPHILS | 77.13 | % | [facility] | | | | | LABORATORY | + + + + + | LYMPHOCYTES | 16.39 | % | [facility] | | | | | LABORATORY | + + + + + | MONOCYTES | 5.01 | % | [facility] | | | | | LABORATORY | + + + + + | EOSINOPHILS | 0.85 | % | [facility] | | | | | LABORATORY | + + + + + | BASOPHILS | 0.62 | % | [facility] | | | | | LABORATORY | + + + + + | NEUTROPHILS ABS | 5.19 | 1.90 - 7.40 K/uL | [facility] | | | | | LABORATORY | + + + + + | LYMPHOCYTES ABS | 1.10 | 1.00 - 3.90 K/uL | [facility] | | | | | LABORATORY | + + + + + | MONOCYTES ABS | 0.34 | 0.00 - 0.80 K/uL | [facility] | | | | | LABORATORY | + + + + + | EOSINOPHILS ABS | 0.06 | 0.00 - 0.50 K/uL | [facility] | | | | | LABORATORY | + + + + + | BASOPHILS ABS | 0.04Comment: Testing | 0.00 - 0.10 K/uL | [facility] | | | performed at [facility], [address] | | LABORATORY | | | [address] [facility], | | | | | [place] [address] | | | + + + + + + + + + + | Performing | Address | City/State/Zipcode | Phone Number | | Organization | | | | + + + + + | [facility] | [address] | [place] [address] | [phone] | | LABORATORY | [address] | | | + + + + + Basic metabolic panel (03/13/2018 3:30 AM) + + + + + | Component | Value | Ref Range | Performed At | + + + + + | SODIUM | 140 | 135 - 145 mmol/L | [facility] | | | | | LABORATORY | + + + + + | POTASSIUM | 3.8 | 3.5 - 4.9 mmol/L | [facility] [...] + + + + | GLUCOSE | 125 (H) | 65 - 99 mg/dL | [facility] | | | | | LABORATORY | + + + + + | BUN | 16 | 8 - 25 mg/dL | [facility] | | | | | LABORATORY | + + + + + | CREATININE | 0.8 | 0.70 - 1.30 mg/dL | [facility] | | | | | LABORATORY | + + + + + | BUN/CREAT | 20 | | [facility] | | | | | LABORATORY | + + + + + | CALCIUM | 8.6 | 8.5 - 10.5 mg/dL | [facility] | | | | | LABORATORY | [...] | | | | | performed at [facility], [address] | | | | | [facility], | | | | | [place] [address] | | | + + + + + + + + + + | Performing | Address | City/State/Zipcode | Phone Number | | Organization | | | | + + + + + | [facility] | [address] [place] [address] | [place] [address] | [phone] | | LABORATORY | [address] | | | + + + + + APTT (03/13/2018 3:30 AM) + + + + + | Component | Value | Ref Range | Performed At | + + + + + | APTT | 58 (H)Comment: Testing | 23 - 32 seconds | [facility] | | | performed at [facility];[address] | | | | | [address];[place] | | | | | [address] | | | + + + + + + + | Specimen | + + | Blood | + + + + + + + | Performing | Address | City/State/Zipcode | Phone Number | | Organization | | | | + + + + + | [facility] | [address] | [place] [address] | | + + + + + POCT glucose (03/12/2018 9:43 PM) + + + + + | Component | Value | Ref Range | Performed At | + + + + + | GLUCOSE,POC SCREEN | 85Comment: Testing | 65 - 99 mg/dL | [facility] | | | performed at [facility];[address] | | | | | [address];[place], [place] | | | | | [address] | | | + + + + + + + + + + | Performing | Address | City/State/Zipcode | Phone Number | | Organization | | | | + + + + + | [facility] | [address] | [place] [address] | | + + + + + APTT (03/12/2018 9:24 PM) + + + + + | Component | Value | Ref Range | Performed At | + + + + + | APTT | 65 (H)Comment: Testing | 23 - 32 seconds | [facility] | | | performed at [facility];[address] | | | | | [facility] [facility];[place] | | | | | [address] | | | + + + + + + + | Specimen | + + | Blood | + + + + + + + | Performing | Address | City/State/Zipcode | Phone Number | | Organization | | | | + + + + + | [facility] | [address] | [place] [address] | | + + + + + POCT glucose (03/12/2018 4:31 PM) + + + + + | Component | Value | Ref Range | Performed At | + + + + + | GLUCOSE,POC SCREEN | 79Comment: Testing | 65 - 99 mg/dL | [facility] | | | performed at [facility];[address] | | | | | [address];[place] | | | | | [address] | | | + + + + + + + + + + | Performing | Address | City/State/Zipcode | Phone Number | | Organization | | | | + + + + + | [facility] | [address] | [place] [address] | | + + + + + APTT (03/12/2018 1:30 PM) + + + + + | Component | Value | Ref Range | Performed At | + + + + + | APTT | 87 (HH)Comment: CALLED | 23 - 32 seconds | [facility] | | | NURSING UNITKELSIE/ 7 RP | | | | | @ 1408 BY BURTREAD BACK | | | | | RESULTS VERIFIEDTesting | | | | | performed at [facility];[address] | | | | | [address];[place] | | | | | [address] | | | + + + + + + + | Specimen | + + | Blood | + + + + + + + | Performing | Address | City/State/Zipcode | Phone Number | | Organization | | | | + + + + + | [facility] | [address] | [place] [address] | | + + + + + POCT glucose (03/12/2018 12:41 PM) + + + + + | Component | Value | Ref Range | Performed At | + + + + + | GLUCOSE,POC SCREEN | 174 (H)Comment: Testing | 65 - 99 mg/dL | [facility] | | | performed at [facility];[address] | | | | | [address] [facility];[place], [place] | | | | | [address] | | | + + + + + + + + + + | Performing | Address | City/State/Zipcode | Phone Number | | Organization | | | | + + + + + | [facility] | [address] | [place] [address] | | + + + + + Hemoglobin A1c (03/12/2018 4:52 AM) + + + + + | Component | Value | Ref Range | Performed At | + + + + + | HEMOGLOBIN A1C | 7.0 (H)Comment: The | 4.0 - 6.0 % | [facility] | | | [place] Diabetes | | LABORATORY | | | [...] + + + | ESTIMATED AVG | 154Comment: The ADA | mg/dL | [facility] | | GLUCOSE | considers an eAG [...] | | | | | performed at [facility], [address] | | | | | [facility], | | | | | [place] [address] | | | + + + + + + + | Specimen | + + | Blood | + + + + + + + | Performing | Address | City/State/Zipcode | Phone Number | | Organization | | | | + + + + + | [facility] | [address] | [place] [address] | [phone] | | LABORATORY | [address] | | | + + + + + APTT (03/12/2018 4:52 AM) + + + + + | Component | Value | Ref Range | Performed At | + + + + + | APTT | 34 (H)Comment: Testing | 23 - 32 seconds | [facility] | | | performed at [facility];[address] | [address] | | [address];[place], [place] | | | | | [address] | | | + + + + + + + | Specimen | + + | Blood | + + + + + + + | Performing | Address | City/State/Zipcode | Phone Number | | Organization | | | | + + + + + | [facility] | [address] | [place] [address] | | + + + + + Protime-INR (03/12/2018 4:52 AM) + + + + + | Component | Value | Ref Range | Performed At | + + + + + | INR | 1.1Comment: REFERENCE | | [facility] | | | RANGE:0.9 [...] | | | | | performed at [facility];[address] | | | | | [address] [facility];[place] | | | | | [address] | | | + + + + + + + | Specimen | + + | Blood | + + + + + + + | Performing | Address | City/State/Zipcode | Phone Number | | Organization | | | | + + + + + | [facility] | [address] | [place] [address] | | + + + + + Phosphorus (03/12/2018 4:52 AM) + + + + + | Component | Value | Ref Range | Performed At | + + + + + | PHOSPHORUS | 3.7Comment: Testing | 2.3 - 4.8 mg/dL | [facility] | | | performed at [facility], [address] | | LABORATORY | | | [address], | | | | | [place] [address] | | | + + + + + + + | Specimen | + + | Blood | + + + + + + + | Performing | Address | City/State/Zipcode | Phone Number | | Organization | | | | + + + + + | [facility] | [address] | [place] [address] | [phone] | | LABORATORY | [address] | | | + + + + + Magnesium (03/12/2018 4:52 AM) + + + + + | Component | Value | Ref Range | Performed At | + + + + + | MAGNESIUM | 1.8Comment: Testing | 1.7 - 2.4 mg/dL | [facility] | | | performed at [facility], [address] | | LABORATORY | | | [facility], | | | | | [place] [address] | | | + + + + + + + | Specimen | + + | Blood | + + + + + + + | Performing | Address | City/State/Zipcode | Phone Number | | Organization | | | | + + + + + | [facility] | [address] | [place] [address] | [phone] | | LABORATORY | [address] | | | + + + + + Basic Metabolic Panel (03/12/2018 4:52 AM) + + + + + | Component | Value | Ref Range | Performed At | + + + + + | SODIUM | 139 | 135 - 145 mmol/L | [facility] | | | | | LABORATORY | + + + + + | POTASSIUM | 4.3 | 3.5 - 4.9 mmol/L | [facility] | | | | | LABORATORY | + + + + + | CHLORIDE | 105 | 99 - 109 mmol/L | [facility] [...] + + + + | GLUCOSE | 177 (H) | 65 - 99 mg/dL | [...] + | BUN/CREAT | 23 | | [facility] | | | | | LABORATORY | + + + + + | CALCIUM | 8.6 | 8.5 - 10.5 mg/dL | [facility] | | | | | LABORATORY | [...] | | | | | performed at [facility], [address] | [address], | | | | | [place] [address] | | | + + + + + + + | Specimen | + + | Blood | + + + + + + + | Performing | Address | City/State/Zipcode | Phone Number | | Organization | | | | + + + + + | [facility] | [address] | [place] [address] | [phone] | | LABORATORY | [address] | | | + + + + + CBC W/Auto Diff (Reflex to Manual) (03/12/2018 4:52 AM) + + + + + | Component | Value | Ref Range | Performed At | + + + + + | WBC | 6.44 | 3.80 - 11.00 K/uL | [facility] | | | | | LABORATORY | + + + + + | RBC | 3.54 (L) | 4.20 - 5.70 M/uL | [facility] | | | | | LABORATORY | + + + + + | HGB | 10.6 (L) | 13.2 - 17.0 g/dL | [facility] | | | | | LABORATORY | + + + + + | HCT | 30.8 (L) | 39.0 - 50.0 % | [facility] | | | | | LABORATORY | + + + + + | MCV | 87.0 | 80.0 - 100.0 fl | [facility] | | | | | LABORATORY | + + + + + | MCH | 30.0 | 27.0 - 34.0 pg | [facility] | | | | | LABORATORY | + + + + + | MCHC | 34.5 | 32.0 - 35.5 g/dL | [facility] | | | | | LABORATORY | + + + + + | RDW SD | 42.0 | 37 - 53 fl | [facility] | | | | | LABORATORY | + + + + + | PLT | 262 | 150 - 400 K/uL | [facility] | | | | | LABORATORY | + + + + + | MPV | 8.1 | fl | [facility] | | | | | LABORATORY | + + + + + | DIFF TYPE | AUTOMATED | | [facility] | | | | | LABORATORY | + + + + + | NEUTROPHILS | 79.70 | % | [facility] | | | | | LABORATORY | + + + + + | LYMPHOCYTES | 12.64 | % | [facility] | | | | | LABORATORY | + + + + + | MONOCYTES | 6.27 | % | [facility] | | | | | LABORATORY | + + + + + | EOSINOPHILS | 0.51 | % | [facility] | | | | | LABORATORY | + + + + + | BASOPHILS | 0.88 | % | [facility] | | | | | LABORATORY | + + + + + | NEUTROPHILS ABS | 5.13 | 1.90 - 7.40 K/uL | [facility] | | | | | LABORATORY | + + + + + | LYMPHOCYTES ABS | 0.81 (L) | 1.00 - 3.90 K/uL | [facility] | | | | | LABORATORY | + + + + + | MONOCYTES ABS | 0.40 | 0.00 - 0.80 K/uL | [facility] | | | | | LABORATORY | + + + + + | EOSINOPHILS ABS | 0.03 | 0.00 - 0.50 K/uL | [facility] | | | | | LABORATORY | + + + + + | BASOPHILS ABS | 0.06Comment: Testing | 0.00 - 0.10 K/uL | [facility] | | | performed at [facility] [facility], [address] | | LABORATORY | | | [address], | | | | | [place] [address] | | | + + + + + + + | Specimen | + + | Blood | + + + + + + + | Performing | Address | City/State/Zipcode | Phone Number | | Organization | | | | + + + + + | [facility] | [address] | [place] [address] | [phone] | | LABORATORY | [address] | | | + + + + + aPTT - Q6 starting in 6 hours x 2 (03/11/2018 11:55 PM) + + + + + | Component | Value | Ref Range | Performed At | + + + + + | APTT | 32Comment: Testing | 23 - 32 seconds | [facility] | | | performed at [facility];[address] | | | | [address];[place] | | | | | [address] | | | + + + + + + + | Specimen | + + | Blood | + + + + + + + | Performing | Address | City/State/Zipcode | Phone Number | | Organization | | | | + + + + + | [facility] | [address] | [place] [address] | | + + + + + aPTT - Q6 starting in 6 hours x 2 (03/11/2018 6:37 PM) + + + + + | Component | Value | Ref Range | Performed At | + + + + + | APTT | >240 ()Comment: CALLED | 23 - 32 seconds | [facility] | | | NURSING UNITREAD BACK | | | | | RESULTS VERIFIEDDAVID C | | | | | RN LEAD 7RP @ 1938 | | | | | DLSTesting performed at | | | | | [facility];[address] | | [address];[place] [address] | | | + + + + + + + | Specimen | + + | Blood | + + + + + + + | Performing | Address | City/State/Zipcode | Phone Number | | Organization | | | | + + + + + | [facility] | [address] | [place] [address] | | + + + + + IR guidance vascular access US (03/11/2018 6:13 PM) + + + | Narrative | Performed At | + + + | This Point of Care (POC) ultrasound image has been reviewed and | [facility] | | interpreted by the physician identified as the performing physician in | RADIOLOGY | | the associated interpretation and report. | | + + + + + + + + | Performing | Address | City/State/Zipcode | Phone Number | | Organization | | | | + + + + + | [facility] | [address] | [place] [address] | | + + + + + IR thrombectomy arterial includes thombolytic injection (03/11/2018 5:58 PM) + + + | Impressions | Performed At | + + + | 1. Right below-knee popliteal artery to distal posterior tibial | [facility] | | artery bypass was occluded. 2. 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 3. After thrombectomy and angioplasty, good flow noted through | | | bypass graft and medial portion of right foot. Electronically | | | signed by Long Ferrera MD on 03/16/2018 12:00 PM | | + + + + + + | Narrative | Performed At | + + + | LOWER EXTREMITY ARTERIOGRAM, UNILATERAL PREOPERATIVE | [facility] | | DIAGNOSIS: Critical limb ischemia with occluded right popliteal to | RADIOLOGY | | posterior tibial artery bypass graft POSTOPERATIVE | | | DIAGNOSIS: Same PROCEDURE: 1. Moderate conscious sedation 2. | | | Ultrasound guided access of the left common femoral artery 3. | | | Selective right common femoral artery catheterization with right leg | | | runoff 4. Mechanical thrombectomy of right popliteal to posterior | | | tibial artery bypass graft using 4 Maldivian Solent Dista AngioJet | | | catheter 5. Angioplasty of right posterior tibial artery using 2.5 x | | | 120 mm angioplasty balloon 6. Angioplasty of right leg bypass graft | | | and popliteal artery using 4 x 150 mm angioplasty balloon SURGEON: | | | Long Ferrera MD SPARE HAND CARDING: None ANESTHESIA: Moderate sedation and | | | local anesthesia Informed consent was obtained from the patient. | | | Continuous cardiac monitoring was performed throughout the procedure. | | | Conscious sedation was provided by the nursing staff during the | | | procedure under my supervision. Sedation time: 80 minutes | | | Medications: 1.5 mg Versed IV, 75 mcg Fentanyl IV ESTIMATED BLOOD | | | LOSS: Minimal CONTRAST: 62 mL of Isovue 250 | | | INDICATIONS: See preoperative history and physical | | | FINDINGS: Right popliteal to posterior tibial artery bypass was | | | occluded. However, two-vessel runoff seen via right anterior tibial | | | artery and peroneal artery. Medial aspect of foot was supplied by | | | posterior tibial artery due to pedal artery disease. Therefore bypass | | | was thrombectomized and angioplastied with good results. | | | DESCRIPTION OF PROCEDURE: The patient was properly identified and | | | brought to the [facility]. The patient was placed supine on the catheter | | | table and patient was given moderate sedation by nursing staff under | | | my supervision. Patient's bilateral groins were then prepped and | | | draped in the usual sterile fashion. Local anesthetic was given to the | | | left groin and the left common femoral artery was accessed under | | | ultrasound guidance using a micropuncture needle. A micropuncture | | | sheath was inserted over a wire and up sized to a 4 Maldivian sheath. A | | | Omni flush catheter was then inserted into the distal aorta and | | | aortogram was then performed with the findings as described above. The | | | Omni Flush catheter was then used to guide a Glidewire into the right | | | common femoral artery and then the catheter was then advanced over | | | the wire. A right lower extremity runoff was then performed with the | | | findings as described above. Next, an Amplatzer wire was then | | | inserted over the catheter and the 4 Maldivian sheath was removed. A 7 | | | Maldivian destination sheath was then inserted over the wire with the tip | | | of the sheath being placed into the right common femoral artery. A | | | vertebral catheter was inserted over the wire and the wire was then | | | removed. A Glidewire was then placed into the vertebral catheter and | | | used to attempt crossing of chronically occluded right proximal | | | posterior tibial artery but due to a dissection flap, this was | | | unsuccessful. Therefore, the occluded right below knee popliteal to | | | distal posterior tibial artery bypass was accessed and | | | crossed. Next, a 0.014 mailman wire was then inserted over the | | | catheter. Mechanical thrombectomy of the right popliteal to | | | posterior tibial artery bypass was then performed using 4 Maldivian | | | Solent Dista AngioJet catheter. After mechanical thymectomy, the | | | distal right posterior tibial artery was and angioplasty using 2.5 x | | | 120 mm angioplasty balloon. Finally, the proximal right leg bypass | | | graft and popliteal artery was and angioplasty using 4 x 150 mm | | | angioplasty balloon. A final arteriogram was then performed | | | through the sheath. The destination sheath was then removed and a Mynx | | | closure device was then used on the left common femoral artery and | | | hemostasis was ensured. The patient was then taken to the observation | | | unit for further monitoring. | | + + + + + | Procedure Note | + + | Zachariah, Rad Results In - 03/31/2018 8:28 AM PDT LOWER EXTREMITY ARTERIOGRAM, | | UNILATERALPREOPERATIVE DIAGNOSIS: Critical limb ischemia with occluded right popliteal | | to posterior tibial artery bypass graftPOSTOPERATIVE DIAGNOSIS: SamePROCEDURE:1. | | Moderate conscious sedation2. Ultrasound guided access of the left common femoral | | artery3. Selective right common femoral artery catheterization with right leg runoff4. | | Mechanical thrombectomy of right popliteal to posterior tibial artery bypass graft using | | 4 Mal[place]ian Solent Dista AngioJet catheter5. Angioplasty of right posterior tibial artery | | using 2.5 x 120 mm angioplasty balloon6. Angioplasty of right leg bypass graft and | | popliteal artery using 4 x 150 mm angioplasty balloonSURGEON: SVITLANA CuellarISTANT: | | NoneANESTHESIA: Moderate sedation and local anesthesiaInformed consent was obtained from | | the patient. Continuous cardiac monitoring was performed throughout the | | procedure.Conscious sedation was provided by the nursing staff during the procedure | | under my supervision.Sedation time: 80 minutesMedications: 1.5 mg Versed IV, 75 mcg | | Fentanyl IVESTIMATED BLOOD LOSS: MinimalCONTRAST: 62 mL of Isovue 250INDICATIONS: See | | preoperative history and physicalFINDINGS: Right popliteal to posterior tibial artery | | bypass was occluded. However, two-vessel runoff seen via right anterior tibial artery | | and peroneal artery. Medial aspect of foot was supplied by posterior tibial artery due | | to pedal artery disease. Therefore bypass was thrombectomized and angioplastied with | | good results.DESCRIPTION OF PROCEDURE: The patient was properly identified and brought | | to the [facility]. The patient was placed supine on the catheter table and patient was | | given moderate sedation by nursing staff under my supervision. Patient's bilateral | | groins were then prepped and draped in the usual sterile fashion. Local anesthetic was | | given to the left groin and the left common femoral artery was accessed under ultrasound | | guidance using a micropuncture needle. A micropuncture sheath was inserted over a wire | | and up sized to a 4 Maldivian sheath. A Omni flush catheter was then inserted into the | | distal aorta and aortogram was then performed with the findings as described above. The | | Omni Flush catheter was then used to guide a Glidewire into the right common femoral | | artery and then the catheter was then advanced over the wire. A right lower extremity | | runoff was then performed with the findings as described above.Next, an Amplatzer wire | | was then inserted over the catheter and the 4 Maldivian sheath was removed. A 7 Maldivian | | destination sheath was then inserted over the wire with the tip of the sheath being | | placed into the right common femoral artery. A vertebral catheter was inserted over the | | wire and the wire was then removed. A Glidewire was then placed into the vertebral | | catheter and used to attempt crossing of chronically occluded right proximal posterior | | tibial artery but due to a dissection flap, this was unsuccessful. Therefore, the | | occluded right below knee popliteal to distal posterior tibial artery bypass was | | accessed and crossed. Next, a 0.014 mailman wire was then inserted over the catheter. | | Mechanical thrombectomy of the right popliteal to posterior tibial artery bypass was | | then performed using 4 Mal[place] Solent Dista AngioJet catheter. After mechanical | | thymectomy, the distal right posterior tibial artery was and angioplasty using 2.5 x 120 | | mm angioplasty balloon. Finally, the proximal right leg bypass graft and popliteal | | artery was and angioplasty using 4 x 150 mm angioplasty balloon.A final arteriogram was | | then performed through the sheath. The destination sheath was then removed and a Mynx | | closure device was then used on the left common femoral artery and hemostasis was | | ensured. The patient was then taken to the observation unit for further | | monitoring.IMPRESSION:1. Right below-knee popliteal artery to distal posterior tibial | | artery bypass was occluded.2. Right anterior tibial artery and peroneal artery were | | patent but due to significant pedal artery disease, medial aspect of foot was not | | receiving adequate arterial flow.3. After thrombectomy and angioplasty, good flow noted | | through bypass graft and medial portion of right foot. | |1. Right below-knee popliteal artery to distal posterior tibial artery bypass was occluded. | |2. Right anterior tibial artery and peroneal artery were patent but due to significant peda l artery disease, medial aspect of foot was not receiving adequate arterial flow. | |3. After thrombectomy and angioplasty, good flow noted through bypass graft and medial port ion of right foot. | | | | | + + + + + + + | Performing | Address | City/State/Zipcode | Phone Number | | Organization | | | | + + + + + | [facility] | [address] | [place] [address] | | + + + + + IR angiogram extremity right (03/11/2018 5:58 PM) + + + | Impressions | Performed At | + + + | 1. Right below-knee popliteal artery to distal posterior tibial | [facility] | | artery bypass was occluded. 2. 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 3. After thrombectomy and angioplasty, good flow noted through | | | bypass graft and medial portion of right foot. Electronically | | | signed by Long Ferrera MD on 03/16/2018 12:00 PM | | + + + + + + | Narrative | Performed At | + + + | LOWER EXTREMITY ARTERIOGRAM, UNILATERAL PREOPERATIVE | [facility] | | DIAGNOSIS: Critical limb ischemia with occluded right popliteal to | RADIOLOGY | | posterior tibial artery bypass graft POSTOPERATIVE | | | DIAGNOSIS: Same PROCEDURE: 1. Moderate conscious sedation 2. | | | Ultrasound guided access of the left common femoral artery 3. | | | Selective right common femoral artery catheterization with right leg | | | runoff 4. Mechanical thrombectomy of right popliteal to posterior | | | tibial artery bypass graft using 4 Maldivian Solent Dista AngioJet | | | catheter 5. Angioplasty of right posterior tibial artery using 2.5 x | | | 120 mm angioplasty balloon 6. Angioplasty of right leg bypass graft | | | and popliteal artery using 4 x 150 mm angioplasty balloon SURGEON: | | | Long Ferrera MD SPARE HAND CARDING: None ANESTHESIA: Moderate sedation and | | | local anesthesia Informed consent was obtained from the patient. | | | Continuous cardiac monitoring was performed throughout the procedure. | | | Conscious sedation was provided by the nursing staff during the | | | procedure under my supervision. Sedation time: 80 minutes | | | Medications: 1.5 mg Versed IV, 75 mcg Fentanyl IV ESTIMATED BLOOD | | | LOSS: Minimal CONTRAST: 62 mL of Isovue 250 | | | INDICATIONS: See preoperative history and physical | | | FINDINGS: Right popliteal to posterior tibial artery bypass was | | | occluded. However, two-vessel runoff seen via right anterior tibial | | | artery and peroneal artery. Medial aspect of foot was supplied by | | | posterior tibial artery due to pedal artery disease. Therefore bypass | | | was thrombectomized and angioplastied with good results. | | | DESCRIPTION OF PROCEDURE: The patient was properly identified and | | | brought to the [facility]. The patient was placed supine on the catheter | | | table and patient was given moderate sedation by nursing staff under | | | my supervision. Patient's bilateral groins were then prepped and | | | draped in the usual sterile fashion. Local anesthetic was given to the | | | left groin and the left common femoral artery was accessed under | | | ultrasound guidance using a micropuncture needle. A micropuncture | | | sheath was inserted over a wire and up sized to a 4 Maldivian sheath. A | | | Omni flush catheter was then inserted into the distal aorta and | | | aortogram was then performed with the findings as described above. The | | | Omni Flush catheter was then used to guide a Glidewire into the right | | | common femoral artery and then the catheter was then advanced over | | | the wire. A right lower extremity runoff was then performed with the | | | findings as described above. Next, an Amplatzer wire was then | | | inserted over the catheter and the 4 Maldivian sheath was removed. A 7 | | | Maldivian destination sheath was then inserted over the wire with the tip | | | of the sheath being placed into the right common femoral artery. A | | | vertebral catheter was inserted over the wire and the wire was then | | | removed. A Glidewire was then placed into the vertebral catheter and | | | used to attempt crossing of chronically occluded right proximal | | | posterior tibial artery but due to a dissection flap, this was | | | unsuccessful. Therefore, the occluded right below knee popliteal to | | | distal posterior tibial artery bypass was accessed and | | | crossed. Next, a 0.014 mailman wire was then inserted over the | | | catheter. Mechanical thrombectomy of the right popliteal to | | | posterior tibial artery bypass was then performed using 4 Maldivian | | | Solent Dista AngioJet catheter. After mechanical thymectomy, the | | | distal right posterior tibial artery was and angioplasty using 2.5 x | | | 120 mm angioplasty balloon. Finally, the proximal right leg bypass | | | graft and popliteal artery was and angioplasty using 4 x 150 mm | | | angioplasty balloon. A final arteriogram was then performed | | | through the sheath. The destination sheath was then removed and a Mynx | | | closure device was then used on the left common femoral artery and | | | hemostasis was ensured. The patient was then taken to the observation | | | unit for further monitoring. | | + + + + + | Procedure Note | + + | Zachariah, Rad Results In - 03/31/2018 8:28 AM PDT LOWER EXTREMITY ARTERIOGRAM, | | UNILATERALPREOPERATIVE DIAGNOSIS: Critical limb ischemia with occluded right popliteal | | to posterior tibial artery bypass graftPOSTOPERATIVE DIAGNOSIS: SamePROCEDURE:1. | | Moderate conscious sedation2. Ultrasound guided access of the left common femoral | | artery3. Selective right common femoral artery catheterization with right leg runoff4. | | Mechanical thrombectomy of right popliteal to posterior tibial artery bypass graft using | | 4 Maldivian Solent Dista AngioJet catheter5. Angioplasty of right posterior tibial artery | | using 2.5 x 120 mm angioplasty balloon6. Angioplasty of right leg bypass graft and | | popliteal artery using 4 x 150 mm angioplasty balloonSURGEON: SVITLANA CuellarISTANT: | | NoneANESTHESIA: Moderate sedation and local anesthesiaInformed consent was obtained from | | the patient. Continuous cardiac monitoring was performed throughout the | | procedure.Conscious sedation was provided by the nursing staff during the procedure | | under my supervision.Sedation time: 80 minutesMedications: 1.5 mg Versed IV, 75 mcg | | Fentanyl IVESTIMATED BLOOD LOSS: MinimalCONTRAST: 62 mL of Isovue 250INDICATIONS: See | | preoperative history and physicalFINDINGS: Right popliteal to posterior tibial artery | | bypass was occluded. However, two-vessel runoff seen via right anterior tibial artery | | and peroneal artery. Medial aspect of foot was supplied by posterior tibial artery due | | to pedal artery disease. Therefore bypass was thrombectomized and angioplastied with | | good results.DESCRIPTION OF PROCEDURE: The patient was properly identified and brought | | to the [facility]. The patient was placed supine on the catheter table and patient was | | given moderate sedation by nursing staff under my supervision. Patient's bilateral | | groins were then prepped and draped in the usual sterile fashion. Local anesthetic was | | given to the left groin and the left common femoral artery was accessed under ultrasound | | guidance using a micropuncture needle. A micropuncture sheath was inserted over a wire | | and up sized to a 4 Maldivian sheath. A Omni flush catheter was then inserted into the | | distal aorta and aortogram was then performed with the findings as described above. The | | Omni Flush catheter was then used to guide a Glidewire into the right common femoral | | artery and then the catheter was then advanced over the wire. A right lower extremity | | runoff was then performed with the findings as described above.Next, an Amplatzer wire | | was then inserted over the catheter and the 4 Maldivian sheath was removed. A 7 Maldivian | | destination sheath was then inserted over the wire with the tip of the sheath being | | placed into the right common femoral artery. A vertebral catheter was inserted over the | | wire and the wire was then removed. A Glidewire was then placed into the vertebral | | catheter and used to attempt crossing of chronically occluded right proximal posterior | | tibial artery but due to a dissection flap, this was unsuccessful. Therefore, the | | occluded right below knee popliteal to distal posterior tibial artery bypass was | | accessed and crossed. Next, a 0.014 mailman wire was then inserted over the catheter. | | Mechanical thrombectomy of the right popliteal to posterior tibial artery bypass was | | then performed using 4 Mal[place]ian Solent Dista AngioJet catheter. After mechanical | | thymectomy, the distal right posterior tibial artery was and angioplasty using 2.5 x 120 | | mm angioplasty balloon. Finally, the proximal right leg bypass graft and popliteal | | artery was and angioplasty using 4 x 150 mm angioplasty balloon.A final arteriogram was | | then performed through the sheath. The destination sheath was then removed and a Mynx | | closure device was then used on the left common femoral artery and hemostasis was | | ensured. The patient was then taken to the observation unit for further | | monitoring.IMPRESSION:1. Right below-knee popliteal artery to distal posterior tibial | | artery bypass was occluded.2. Right anterior tibial artery and peroneal artery were | | patent but due to significant pedal artery disease, medial aspect of foot was not | | receiving adequate arterial flow.3. After thrombectomy and angioplasty, good flow noted | | through bypass graft and medial portion of right foot. | |1. Right below-knee popliteal artery to distal posterior tibial artery bypass was occluded. | |2. Right anterior tibial artery and peroneal artery were patent but due to significant peda l artery disease, medial aspect of foot was not receiving adequate arterial flow. | |3. After thrombectomy and angioplasty, good flow noted through bypass graft and medial port ion of right foot. | | | | | + + + + + + + | Performing | Address | City/State/Zipcode | Phone Number | | Organization | | | | + + + + + | [facility] | [address] | [place] [address] | | + + + + + APTT (03/11/2018 3:38 PM) + + + + + | Component | Value | Ref Range | Performed At | + + + + + | APTT | >240 ()Comment: CALLED | 23 - 32 seconds | [facility] | | | NURSING UNITREAD BACK | | | | | RESULTS VERIFIEDJADORA W | | | | | RN 7RP @ 9196 DLSTesting | | | | | performed at [facility] | | | | | [address];[place], [place] | | | | | [address] | | | + + + + + + + | Specimen | + + | Blood | + + + + + + + | Performing | Address | City/State/Zipcode | Phone Number | | Organization | | | | + + + + + | [facility] | [address] | [facility] [place] [address] | | + + + + + aPTT (03/11/2018 2:19 PM) + + + + + | Component | Value | Ref Range | Performed At | + + + + + | APTT | >240 ()Comment: CALLED | 23 - 32 seconds | [facility] | | | NURSING UNITREAD BACK | | | | | RESULTS VERIFIEDJEFERSON Guerrier | | | | | RN 7RP @ 3675 DLSTesting | | | | | performed at [facility];[address];[place] | | | | | [address] | | | + + + + + + + | Specimen | + + | Blood | + + + + + + + | Performing | Address | City/State/Zipcode | Phone Number | | Organization | | | | + + + + + | [facility] | [address] | [place] [address] | | + + + + + Cardiac Panel (03/11/2018 12:15 PM) + + + + + | Component | Value | Ref Range | Performed At | + + + + + | WBC | 7.36 | 3.80 - 11.00 K/uL | [facility] | + + + + + | RBC | 3.92 (L) | 4.20 - 5.70 M/uL | [facility] | + + + + + | HGB | 11.8 (L) | 13.2 - 17.0 g/dL | [facility] | + + + + + | HCT | 33.9 (L) | 39.0 - 50.0 % | [facility] | + + + + + | MCV | 86.6 | 80.0 - 100.0 fl | [facility] | + + + + + | [facility] | 30.0 | 27.0 - 34.0 pg | [facility] | + + + + + | MCHC | 34.7 | 32.0 - 35.5 g/dL | [facility] | + + + + + | RDW SD | 41.1 | 37 - 53 fl | [facility] | + + + + + | PLT | 323 | 150 - 400 K/uL | [facility] | + + + + + | MPV | 7.8 | fl | [facility] | + + + + + | DIFF TYPE | AUTOMATED | | [facility] | + + + + + | NEUTROPHILS | 79.60 | % | [facility] | + + + + + | LYMPHOCYTES | 13.48 | % | [facility] | + + + + + | MONOCYTES | 5.29 | % | [facility] | + + + + + | EOSINOPHILS | 0.63 | % | [facility] | + + + + + | BASOPHILS | 1.00 | % | [facility] | + + + + + | NEUTROPHILS ABS | 5.86 | 1.90 - 7.40 K/uL | [facility] | + + + + + | LYMPHOCYTES ABS | 0.99 (L) | 1.00 - 3.90 K/uL | [facility] | + + + + + | MONOCYTES ABS | 0.39 | 0.00 - 0.80 K/uL | [facility] | + + + + + | EOSINOPHILS ABS | 0.05 | 0.00 - 0.50 K/uL | [facility] | + + + + + | BASOPHILS ABS | 0.07 | 0.00 - 0.10 K/uL | [facility] | + + + + + | SODIUM | 139 | 135 - 145 mmol/L | [facility] | + + + + + | POTASSIUM | 4.5 | 3.5 - 4.9 mmol/L | [facility] | + + + + + | CHLORIDE | 102 | 99 - 109 mmol/L | [facility] | + + + + + | CO2 | 27 | 23 - 32 mmol/L | [facility] | + + + + + | ANION GAP AGAP | 14 | 5 - 20 mmol/L | [facility] | + + + + + | GLUCOSE | 190 (H) | 65 - 99 mg/dL | [facility] | + + + + + | BUN | 19 | 8 - 25 mg/dL | [facility] | + + + + + | CREATININE | 0.86 | 0.70 - 1.30 mg/dL | [facility] | + + + + + | BUN/CREAT | 22 | | [facility] | + + + + + | CALCIUM | 9.1 | 8.5 - 10.5 mg/dL | [facility] | + + + + + | TOTAL PROTEIN | 7.5 | 6.3 - 8.2 g/dL | [facility] | + + + + + | Albumin | 2.6 (L) | 3.6 - 5.0 g/dL | [facility] | + + + + + | GLOBULIN | 4.9 | 1.3 - 4.9 g/dL | [facility] | + + + + + | A/G | 0.5 (L) | 1.0 - 2.4 | [facility] | + + + + + | TBIL | 0.6 | 0.1 - 1.5 mg/dL | [facility] | + + + + + | ALK PHOS | 95 | 35 - 115 U/L | [facility] | + + + + + | AST | 23 | 10 - 45 U/L | [facility] | + + + + + | ALT | 39 | 10 - 65 U/L | [facility] | + + + + + | EGFR | >60Comment: GFR <60: | >60 mL/min/1.73m2 | [facility] | | | CHRONIC [...] the | | | | | MDRD [facility] traceable | | | | | equation. | | | + + + + + | CPK | 39 (L) | 55 - 400 U/L | [facility] | + + + + + | INR | 1.1Comment: REFERENCE | | [facility] | | | RANGE:0.9 [...] + + + + | APTT | 31 | 23 - 32 seconds | [facility] | + + + + + | MMB | 1.3 | 0.5 - 3.6 ng/mL | [facility] | + + + + + | CK-MB Index | 3.3Comment: CK INDEX | | [facility] | | | INTERPRETATION: | | | | | MMB | | | | | ng/mL & Relative | | | | | IndexNon-AMI | | | | | < or = | | | | | 5.0 N | | | | | AGray Zone | | | | | >5.0 < | | | | | or = | | | | | 4.0AMI | | | | | | | | | | >5.0 | | | | | >4.0Testing | | | | | performed at [facility];[address] | | | | | [address];[place] | | | | | [address] | | | + + + + + + + + + + | Performing | Address | City/State/Zipcode | Phone Number | | Organization | | | | + + + + + | [facility] | [address] | [place] [address] | | + + + + + in this encounter Visit Diagnoses + + | Diagnosis | + + | Occlusion of right femoral-popliteal bypass graft, initial encounter (HCC) - Primary | + + | Occlusion of graft of lower extremity, initial encounter (HCC) | + + | Critical lower limb ischemia | + + | Unspecified circulatory system disorder | + + | Essential hypertension | + + | Unspecified essential hypertension | + + | DM (diabetes mellitus) ([facility]) | + + | Type II or unspecified type diabetes mellitus without mention of complication, not | | stated as uncontrolled | + + | PVD (peripheral vascular disease) ([facility]) | + + | Peripheral vascular disease, unspecified | + + | Weakness generalized | + + | Other malaise and fatigue | + + | Debility | + + | Debility, unspecified | + + | Other hyperlipidemia | + + Admitting Diagnoses + + | Diagnosis | + + | Critical lower limb ischemia | + + | Unspecified circulatory system disorder | + + | Occlusion of graft of lower extremity, initial encounter (HCC) | + + Administered Medications + +--------+---------+------+------+------+ | Medication Order | MAR | Action | Dose | Rate | Site | | | Action | Date | | | | + +--------+---------+------+------+------+ + +---+ | acetaminophen (TYLENOL) | | | suppository 650 mg 650 mg, | | | Rectal, Every 6 Hours PRN, Mild | | | Pain (1-3), Fever, Starting Fri | | | 03/11/18 at 1355 | | + +---+ | | | + +---+ | acetaminophen (TYLENOL) tablet | | | 650 mg 650 mg, Oral, Every 6 | | | Hours PRN, Mild Pain (1-3), | | | Fever, Starting Wed03/11/18 at | | | 1355 | | + +---+ | | | + +---+ + +-------+ +-------+---+---+ | atorvastatin (LIPITOR) tablet | Given | | 40 mg | | | | 40 mg 40 mg, Oral, Nightly, | | 8 21:59 | | | | | First dose on Wed03/11/18 at 2200 | | PDT | | | | + +-------+ +-------+---+---+ + + +-------+---+---+ | Given by Other | | 40 mg | | | | | 8 20:47 | | | | | | PDT | | | | + + +-------+---+---+ | Given | | 40 mg | | | | | 8 21:55 | | | | | | PDT | | | | + + +-------+---+---+ +---+---+ | | | +---+---+ + +-------+ +-------+---+---+ | clopidogrel (PLAVIX) tablet 75 | Given | | 75 mg | | | | mg 75 mg, Oral, Daily, First | | 8 08:07 | | | | | dose on Wed03/11/18 at 1430 | | PDT | | | | + +-------+ +-------+---+---+ +-------+ +-------+---+---+ | Given | | 75 mg | | | | | 8 08:45 | | | | | | PDT | | | | +-------+ +-------+---+---+ | Given | | 75 mg | | | | | 8 07:59 | | | | | | PDT | | | | +-------+ +-------+---+---+ + +---+ | | | + +---+ | dextrose 10 % infusion at | | | 0-100 mL/hr, Intravenous, | | | Continuous PRN, Hypoglycemia, | | | Starting 03/12/18 at 0847, For | | | BG 70 or less run infusion at | | | 100 mL/ hr. Discontinue when BG | | | increases to 100 mg/dl or greater | | | x 2-3 hours and patient is | | | eating. Call provider if BG not | | | maintained after 2-3 hours. | | + +---+ | | | + +---+ | dextrose 50 % solution 12 mL | | | 12 mL, Intravenous, PRN, | | | Hypoglycemia (BG < 70 mg/dL), | | | Starting 03/12/18 at 0847 | | + +---+ | | | + +---+ | dextrose 50 % solution 25 mL | | | 25 mL, Intravenous, PRN, | | | Hypoglycemia (BG < 70 mg/dL), | | | Starting 03/12/18 at 0847 | | + +---+ | | | + +---+ + +-------+ +-------+---+---+ | famotidine (PEPCID) tablet 20 | Given | | 20 mg | | | | mg 20 mg, Oral, 2 Times Daily, | | 8 08:43 | | | | | First dose on Wed03/11/18 at 1430 | | PDT | | | | + +-------+ +-------+---+---+ +-------+ +-------+---+---+ | Given | | 20 mg | | | | | 8 21:55 | | | | | | PDT | | | | +-------+ +-------+---+---+ | Given | | 20 mg | | | | | 8 07:59 | | | | | | PDT | | | | +-------+ +-------+---+---+ + +---+ | | | + +---+ | fentaNYL (SUBLIMAZE) injection | | | 25 mcg 25 mcg, Intravenous, | | | Every 1 Hour PRN, Moderate Pain | | | (4-6), Starting Wed03/11/18 at | | | 1833 | | + +---+ | | | + +---+ | fentaNYL (SUBLIMAZE) injection | | | 50 mcg 50 mcg, Intravenous, | | | Every 1 Hour PRN, Severe Pain | | | (-), Starting Wed03/11/18 at | | | 1833 | | + +---+ | | | + +---+ + +-------+ +--------+---+---+ | fentaNYL (SUBLIMAZE) injection | Given | | 50 mcg | | | | Once PRN, Starting Wed03/11/18 | | 8 16:32 | | | | | at 1632, Intra-procedure | | PDT | | | | | (CATH/IR) | | | | | | + +-------+ +--------+---+---+ +-------+ +--------+---+---+ | Given | | 25 mcg | | | | | 8 17:23 | | | | | | PDT | | | | +-------+ +--------+---+---+ +---+---+ | | | +---+---+ + +-------+ +------+---+---+ | glimepiride (AMARYL) tablet 2 | Given | | 2 mg | | | | mg 2 mg, Oral, Every Morning, | | 8 10:35 | | | | | First dose on Wed03/15/18 at 0900 | | PDT | | | | + +-------+ +------+---+---+ +---+---+ | | | +---+---+ + +-------+ +------+---+---+ | glimepiride (AMARYL) tablet 4 | Given | | 4 mg | | | | mg 4 mg, Oral, Every Morning, | | 8 08:36 | | | | | First dose on 03/12/18 at 0900 | | PDT | | | | + +-------+ +------+---+---+ +-------+ +------+---+---+ | Given | | 4 mg | | | | | 8 08:07 | | | | | | PDT | | | | +-------+ +------+---+---+ | Given | | 4 mg | | | | | 8 08:45 | | | | | | PDT | | | | +-------+ +------+---+---+ + +---+ | | | + +---+ | glucagon (GLUCAGEN) injection | | | 0.5 mg 0.5 mg, Intramuscular, | | | PRN, Hypoglycemia, (BG < 70 | | | mg/dL), Starting 03/12/18 at | | | 0847 | | + +---+ | | | + +---+ | glucagon (GLUCAGEN) injection 1 | | | mg 1 mg, Intramuscular, PRN, | | | Hypoglycemia, (BG < 70 mg/dL), | | | Starting 03/12/18 at 0847 | | + +---+ | | | + +---+ + +-------+ +--------+---+---+ | heparin (porcine) 1000 UNIT/ML | Given | | 6,000 | | | | injection Once PRN, Starting Fri | | 8 16:52 | Units | | | | 03/11/18 at 1652, Intra-procedure | | PDT | | | | | (CATH/IR) | | | | | | + +-------+ +--------+---+---+ +-------+ +--------+---+---+ | Given | | 2,000 | | | | | 8 17:23 | Units | | | | | PDT | | | | +-------+ +--------+---+---+ +---+---+ | | | +---+---+ + +-------+ +--------+---+---+ | heparin (porcine) 5000 | Given | | 7,700 | | | | unit/0.5mL injection 7,700 Units | | 8 13:44 | Units | | | | 7,700 Units (rounded from 7,736 | | PDT | | | | | Units = 80 Units/kg | | | | | | | 96.7 kg), Intravenous, Once, Fri | | | | | | | 03/11/18 at 1206, For 1 dose | | | | | | + +-------+ +--------+---+---+ +---+---+ | | | +---+---+ + +---------+ + +-------+---+ | heparin 50 units/mL infusion | New Bag | | 18 | 34.8 | | | 18 Units/kg/hr | | 8 13:37 | Units/kg | mL/hr | | | 96.7 kg (34.812 mL/hr, rounded | | PDT | /hr | | | | to 34.8 mL/hr), Intravenous, at | | | | | | | 34.8 mL/hr, Continuous, Starting | | | | | | | 03/11/18 at 1206 | | | | | | + +---------+ + +-------+---+ +---+---+ | | | +---+---+ + +---------+ + +-------+---+ | heparin 50 units/mL infusion | New Bag | | 10 | 19.3 | | | 18 Units/kg/hr | | 8 19:14 | Units/kg | mL/hr | | | 96.7 kg (34.812 mL/hr, rounded | | PDT | /hr | | | | to 34.8 mL/hr), Intravenous, at | | | | | | | 34.8 mL/hr, Continuous, Starting | | | | | | | 03/11/18 at 1900 | | | | | | + +---------+ + +-------+---+ + + + +-------+---+ | Rate/Dose Verify | | 10 | 19.3 | | | | 8 20:59 | Units/kg | mL/hr | | | | PDT | /hr | | | + + + +-------+---+ | Rate/Dose Change | | 8 | 15.5 | | | | 8 03:19 | Units/kg | mL/hr | | | | PDT | /hr | | | + + + +-------+---+ +---+---+ | | | +---+---+ + +-------+ + +---+---+ | HYDROcodone-acetaminophen | Given | | 1 tablet | | | | (NORCO) 10-325 MG per tablet 1 | | 8 01:34 | | | | | tablet 1 tablet, Oral, Every 4 | | PDT | | | | | Hours PRN, Severe Pain (7-10), | | | | | | | Starting 03/11/18 at 1833 | | | | | | + +-------+ + +---+---+ +-------+ + +---+---+ | Given | | 1 tablet | | | | | 8 21:58 | | | | | | PDT | | | | +-------+ + +---+---+ +---+---+ | | | +---+---+ + +-------+ + +---+---+ | HYDROcodone-acetaminophen | Given | | 1 tablet | | | | (NORCO) 5-325 MG per tablet 1 | | 8 08:43 | | | | | tablet 1 tablet, Oral, Every 4 | | PDT | | | | | Hours PRN, Moderate Pain (4-6), | | | | | | | Starting 03/11/18 at 1833 | | | | | | + +-------+ + +---+---+ +---+---+ | | | +---+---+ + +-------+ +---------+---+---+ | insulin lispro (human) | Given | | 1 Units | | | | (HUMALOG) injection 0-10 Units | | 8 11:48 | | | | | 0-10 Units, Subcutaneous, 3 Times | | PDT | | | | | Daily Before Meals, First dose | | | | | | | on 03/12/18 at 1130 | | | | | | + +-------+ +---------+---+---+ +-------+ +---------+---+---+ | Given | | 2 Units | | | | | 8 06:54 | | | | | | PDT | | | | +-------+ +---------+---+---+ | Given | | 2 Units | | | | | 8 12:38 | | | | | | PDT | | | | +-------+ +---------+---+---+ + +---+ | | | + +---+ | insulin lispro (human) | | | (HUMALOG) injection 0-5 Units | | | 0-5 Units, Subcutaneous, Nightly, | | | First dose on 03/12/18 at | | | 2200 | | + +---+ | | | + +---+ + +-------+ +--------+---+---+ | iopamidol (ISOVUE-250) 51 % | Given | | 62 mLs | | | | injection 62 mL 62 mL, | | 8 16:20 | | | | | Intra-arterial, Img Once PRN, | | PDT | | | | | Other, Starting Wed03/11/18 at | | | | | | | 1620, For 1 dose, Release Upon | | | | | | | Sign | | | | | | + +-------+ +--------+---+---+ +---+---+ | | | +---+---+ + +-------+ +--------+---+---+ | lidocaine 1 % injection Once | Given | | 10 mLs | | | | PRN, During PCI per physician, | | 8 16:31 | | | | | Starting 03/11/18 at 1631, | | PDT | | | | | Intra-procedure (CATH/IR) | | | | | | + +-------+ +--------+---+---+ +---+---+ | | | +---+---+ + +-------+ +--------+---+---+ | LORazepam (ATIVAN) tablet 0.5 | Given | | 0.5 mg | | | | mg 0.5 mg, Oral, Every 4 Hours | | 8 15:54 | | | | | PRN, Anxiety, Starting Fri | | PDT | | | | | 03/11/18 at 1355 | | | | | | + +-------+ +--------+---+---+ +---+---+ | | | +---+---+ + +-------+ +-------+---+---+ | losartan (COZAAR) tablet 25 mg | Given | | 25 mg | | | | 25 mg, Oral, Daily, First dose | | 8 08:07 | | | | | on 03/11/18 at 1430 | | PDT | | | | + +-------+ +-------+---+---+ +-------+ +-------+---+---+ | Given | | 25 mg | | | | | 8 08:44 | | | | | | PDT | | | | +-------+ +-------+---+---+ | Given | | 25 mg | | | | | 8 07:57 | | | | | | PDT | | | | +-------+ +-------+---+---+ +---+---+ | | | +---+---+ + +-------+ +--------+---+---+ | metFORMIN (GLUCOPHAGE) tablet | Given | | 500 mg | | | | 500 mg 500 mg, Oral, Daily With | | 8 08:36 | | | | | Breakfast, First dose on Wed | | PDT | | | | | 03/11/18 at 1430 | | | | | | + +-------+ +--------+---+---+ +---+---+ | | | +---+---+ + +-------+ +---------+---+---+ | metoprolol (LOPRESSOR) tablet | Given | | 12.5 mg | | | | 12.5 mg 12.5 mg, Oral, 2 Times | | 8 08:44 | | | | | Daily, First dose on Wed03/11/18 | | PDT | | | | | at 1430 | | | | | | + +-------+ +---------+---+---+ +-------+ +---------+---+---+ | Given | | 12.5 mg | | | | | 8 21:55 | | | | | | PDT | | | | +-------+ +---------+---+---+ | Given | | 12.5 mg | | | | | 8 08:00 | | | | | | PDT | | | | +-------+ +---------+---+---+ +---+---+ | | | +---+---+ + +-------+ +------+---+---+ | midazolam (VERSED) injection | Given | | 1 mg | | | | Intravenous, Once PRN, Starting | | 8 16:32 | | | | | 03/11/18 at 1632, | | PDT | | | | | Intra-procedure (CATH/IR) | | | | | | + +-------+ +------+---+---+ +-------+ +--------+---+---+ | Given | | 0.5 mg | | | | | 8 17:24 | | | | | | PDT | | | | +-------+ +--------+---+---+ + +---+ | | | + +---+ | morphine (PF) injection 2 mg 2 | | | mg, Intravenous, Every 2 Hours | | | PRN, For pain scale 4 to 5, | | | Starting Wed03/11/18 at 1355 | | + +---+ | | | + +---+ | morphine injection 3 mg 3 mg, | | | Intravenous, Every 2 Hours PRN, | | | For pain scale 6 to 7, Starting | | | Wed03/11/18 at 1355 | | + +---+ | | | + +---+ | morphine injection 4 mg 4 mg, | | | Intravenous, Every 2 Hours PRN, | | | For pain scale 8 to 10, Starting | | | Wed03/11/18 at 1355 | | + +---+ | | | + +---+ + +---------+ +---------+---+ + | nicotine (NICODERM CQ) 21 | Patch | | 1 patch | | Left Arm | | MG/24HR patch 1 patch 1 patch, | Applied | 8 08:08 | | | | | Transdermal, Daily, First dose on | | PDT | | | | | 03/11/18 at 1430 | | | | | | + +---------+ +---------+---+ + + + +---------+---+--------+ | Patch Applied | | 1 patch | | Right | | | 8 08:46 | | | Arm | | | PDT | | | | + + +---------+---+--------+ | Patch Applied | | 1 patch | | Right | | | 8 09:00 | | | Arm | | | PDT | | | | + + +---------+---+--------+ +---+---+ | | | +---+---+ + +-------+ +------+---+---+ | nicotine polacrilex (NICORETTE) | Given | | 2 mg | | | | gum 2 mg 2 mg, Oral, PRN, | | 8 20:19 | | | | | Smoking cessation, Starting Sat | | PDT | | | | | 03/12/18 at 1837 | | | | | | + +-------+ +------+---+---+ +-------+ +------+---+---+ | Given | | 2 mg | | | | | 8 08:09 | | | | | | PDT | | | | +-------+ +------+---+---+ + +---+ | | | + +---+ | ondansetron (ZOFRAN) injection | | | 4 mg 4 mg, Intravenous, Every 6 | | | Hours PRN, Nausea, Vomiting, | | | Starting 03/11/18 at 1833 | | + +---+ | | | + +---+ | ondansetron (ZOFRAN-ODT) | | | disintegrating tablet 4 mg 4 mg, | | | Oral, Every 6 Hours PRN, Nausea, | | | Vomiting, Starting 03/11/18 | | | at 1833 | | + +---+ | | | + +---+ + +-------+ +------+---+---+ | polyethylene glycol (GLYCOLAX) | Given | | 17 g | | | | packet 17 g 17 g, Oral, Daily | | 8 21:59 | | | | | PRN, Constipation, Starting Fri | | PDT | | | | | 03/11/18 at 1355 | | | | | | + +-------+ +------+---+---+ +---+---+ | | | +---+---+ + +-------+ +-------+---+---+ | sitaGLIPtin (JANUVIA) tablet 50 | Given | | 50 mg | | | | mg 50 mg, Oral, Daily, First | | 8 08:08 | | | | | dose on Wed03/11/18 at 1430 | | PDT | | | | + +-------+ +-------+---+---+ +-------+ +-------+---+---+ | Given | | 50 mg | | | | | 8 08:43 | | | | | | PDT | | | | +-------+ +-------+---+---+ | Given | | 50 mg | | | | | 8 07:58 | | | | | | PDT | | | | +-------+ +-------+---+---+ +---+---+ | | | +---+---+ + +-------+ +--------+---+---+ | sodium chloride 0.9 % flush 10 | Given | | 10 mLs | | | | mL 10 mL, Intravenous, Every 8 | | 8 11:34 | | | | | Hours, First dose on Wed03/11/18 | | PDT | | | | | at 1205 | | | | | | + +-------+ +--------+---+---+ +-------+ +--------+---+---+ | Given | | 10 mLs | | | | | 8 20:50 | | | | | | PDT | | | | +-------+ +--------+---+---+ | Given | | 10 mLs | | | | | 8 21:54 | | | | | | PDT | | | | +-------+ +--------+---+---+ +---+---+ | | | +---+---+ + +-------+ +------+---+---+ | warfarin (COUMADIN) tablet 5 mg | Given | | 5 mg | | | | 5 mg, Oral, Daily, First dose | | 8 13:45 | | | | | on Wed03/11/18 at 1930 | | PDT | | | | + +-------+ +------+---+---+ +-------+ +------+---+---+ | Given | | 5 mg | | | | | 8 14:39 | | | | | | PDT | | | | +-------+ +------+---+---+ | Given | | 5 mg | | | | | 8 12:38 | | | | | | PDT | | | | +-------+ +------+---+---+ +---+---+ | | | +---+---+ in this encounter
--- OUTSIDE RECORDS SUMMARY | ~2018-04-10 | XMS | Encounter Summary ---
Demographics + + + | Address | [address] | | | [place] [address] | + + + | Home Phone [...] + + + | Author | [facility] [employer] [facility] | + + + | Organization | [facility] | + + + | Address | Unknown | + + + | Phone | Unavailable | + + + Support + + +---------+ + | Name | Relationship | Address | Phone | + + +---------+ + | Megan Walker | ECON | Unknown | | + + +---------+ + Care Team Providers + +------+ + | Care Triage Rn Name | Role | Phone | + +------+ + | Nicholas Claire MD | PCP | | + +------+ + Reason for Visit +--------+ + | Reason | Comments | +--------+ + | Other | Incision check, staple and suture removal | +--------+ + Encounter Details +--------+ + + + + | Date | Type | Department | Care Team | Description | +--------+ + + + + | 03/16/ | Clinical | [facility] | Yesenia Witt, | PAD (peripheral | | 2018 | Support | Vascular Surgery | RN | artery disease) | | | | [address] | | ([facility]) (Primary Dx) | | | | [facility] [place] | | | | | | [address] | | | | | | [phone] | | | +--------+ + + + [...] + + + as of this encounter Progress Notes Yesenia Witt RN - 03/16/2018 8:30 AM PDTPatient presented to office with caregiver Analilia hargrove for incision check and possible georges removal. Patient is currently at [facility], he discharged from [facility] yesterday after thrombolysis of right low er extremity. Upon assessment, patient's incisions are well approximated, an area on mid thi gh incision appears macerated, patient had an old blister that has since dried up, another a robert also noted at ankle incision, patient is advised to keep close eye on these sites, Chris SULTANA called into room to see patient, ok to remove all sutures and georges on incisions, apply steri-strips on incision except for old blister area. Suture and georges removed witho ut any difficulty. Steri strips applied. Patient scheduled to follow up in 2 weeks for incis ion check and ultrasound of bypass graft. He will contact [facility] if any issue arises, a ppointment packet and incision care instructions sent back with patient to [place]. in [facility] encounter Plan of Treatment +--------+---------+ + + + | Date | Type | Specialty | Care Team | Description | +--------+---------+ + + + | 04/18/ | Office | Vascular Surgery | Chris Duggan DNP | | | 2017 | Visit | | [address] | | | | | | [place] | | | | | | [phone] | | | | | | | | +--------+---------+ + + + as of this encounter Visit Diagnoses + + | Diagnosis | + + | PAD (peripheral artery disease) (HCC) - Primary | + + | Unspecified disorders of arteries and arterioles | + +
--- OUTSIDE RECORDS SUMMARY | ~2018-04-10 | XMS | Encounter Summary ---
Demographics + + + | Address | [address] | | | [place] [address] | + + + | Home Phone | | + + + | Preferred Language | Unknown | + + + | Marital Status | Single | + + + | Latter-Day Affiliation | Unknown | + + + | Race | Unknown | + + + | Ethnic Group | Unknown | + + + Author + + + | Author | [facility] [employer] | + + + | Organization | [facility] | + + + | Address | Unknown | + + + | Phone | Unavailable | + + + Support + + +---------+ + | Name | Relationship | Address | Phone | + + +---------+ + | Megan Walker | ECON | Unknown | | + + +---------+ + Care Team Providers + +------+ + | Care Heel Seat Flap Stapler Name | Role | Phone | + +------+ + | Nicholas Claire MD | PCP | | + +------+ + Encounter Details +--------+ + + + + | Date | Type | Department | Care Team | Description | +--------+ + + + + | 02/25/ | Procedure | [facility] | | | | 2017 | [facility] | | | | | | Operating [address] | | | | | | [address] | | | | | | [place] [address] | | | | | | [phone] | | | +--------+ + + + [...] [place] | | | | | | [id number] | | | | | | | | +--------+---------+ + + + as of this encounter Visit Diagnoses Not on filein this encounter"
--- OUTSIDE RECORDS SUMMARY | ~2018-04-10 | XMS | Encounter Summary ---
Demographics + + + | Address | [address] | | | [place] [address] | + + + | Home Phone | | + + + | Preferred Language | Unknown | + + + | Marital Status | Single | + + + | Jew Affiliation | Unknown | + + + | Race | Unknown | + + + | Ethnic Group | Unknown | + + + Author + + + | Author | [facility] | | | and [place] | + + + | Organization | [facility] | | | and [place] | [...] Team Providers + +------+ + | Care Assistant Womens Volleyball Coach Name | Role | Phone | + [...] [place] | | | | | | [address] | | | | | | [phone] | | | +--------+ + + + [...]
--- OUTSIDE RECORDS SUMMARY | ~2018-04-10 | XMS | Encounter Summary ---
Demographics + + + | Address | [address] | | | [place] [address] | + + + | Home Phone | | + + + | Preferred Language | Unknown | + + + | Marital Status | Single | + + + | Jewish Affiliation | Unknown | + + + | Race | Unknown | + + + | Ethnic Group | Unknown | + + + Author + + + | Author | [facility] | | | and [place] | + + + | Organization | [facility] | | | and [place] | [...] Team Providers + +------+ + | Care Machine I Coremaker Name | Role | Phone | + [...] | | | | | | | [place] RELEASE | | | | | | [...] Description | +--------+---------+ + + + | 02/18/ | Surgery | [facility] | Kal Walker | AMPUTATION TOE, 2nd | | 2018 | | HOSPITAL OR INTRA OP | KRISTINE Nuñez [address] | | | | | [address] [place] | [place], | | | | | [place], [place] | [place] [address] | | | | | [address] | [phone] | | | | | [phone] | | | +--------+---------+ + + + [...] + + | Pulse | 93 | 02/18/2018 2012 PDT | + + + + | [...] digit amputation as above.Dictated by: Kashmir | Tamia Fischeram | |COMPARISON STUDY: | |None | | [...] + + | [facility] | [address] | [place] [address] | [phone] | | HOSPITAL LABORATORY | | | | + + + + + Surgical Pathology Exam (02/18/2018) + + + | Narrative | Performed At | + + + | SPECIMEN(S): A RIGHT SECOND TOE SPECIMEN SOURCE: A. RIGHT | [facility] | | SECOND TOE CLINICAL HISTORY: [...] cassette (A3), following | | | decalcification. NRT:[facility] PERFORMING LABORATORY: The technical | | | component was performed by [facility] | | | [place], [address] [address] (Medical | | | Director: Nicholas Escalante MD; CLIA# [id number]). Professional | | | interpretation was performed by [facility] | | | branch, [address] [facility], [place] [address] (Medical | | | Director: Nicholas Escalante MD; CLIA# [id number]). | | | Diagnostician: Aaliyah Romero MD [...] Toe | + + Administered Medications + +--------+ +--------+------+ + | Medication Order | MAR | Action | Dose | Rate | Site | | | Action | Date | | | | + +--------+ +--------+------+ + | bupivacaine (PF) (MARCAINE) | Given | | 10 mLs | | Surgical | | 0.5% injection PRN, Starting Fri | | 8 19:08 | | | Site | | 02/18/18 at 1908, Intra-op | | PDT | | | | + +--------+ +--------+------+ + + +---+ | | | + +---+ | fentaNYL (PF) injection 25-50 | | | mcg 25-50 mcg, Intravenous, | | | EVERY 5 MIN PRN, Pain, Starting | | | 02/18/18 at 1939, Maximum | | | total [...] +---+---+ | | | +---+---+ + +-------+ +-------+---+ + | lidocaine (PF) 1% injection | Given | | 5 mLs | | Surgical | | PRN, Starting Wed02/18/18 at | | 8 19:19 | | | Site | | 1919, Intra-op | | PDT | | | | + +-------+ +-------+---+ + + +---+ | | | + +---+ | ondansetron (ZOFRAN) injection | | | 4 mg 4 mg, Intravenous, ONCE | | | PRN, Nausea, Starting Wed02/18/18 | | | at 1939, For 1 dose, | | | Recovery/Phase I | | + +---+ | | | + +---+ in this encounter
--- OUTSIDE RECORDS SUMMARY | ~2018-04-10 | XMS | Clinical Summary ---
Demographics + + + | Address | [address] | | | [place] [address] | + + + | Home Phone | | + + + | Preferred Language | Unknown | + + + | Marital Status | Single | + + + | Holiness Affiliation | Unknown | + + + | Race | Unknown | + + + | Ethnic Group | Unknown | + + + Author + + + | Author | [facility] | | | and [place] | + + + | Organization | [facility] | | | and [place] [...] Team Providers + +------+ + | Care Supervisory Forester Name | Role | Phone | + +------+ + | Nicholas Claire MD | PP | | + +------+ + Allergies No Known Allergies Current Medications + + +-------+---------+------+------+-------+ | Prescription | Sig. | Disp. | Refills | Star | End | Statu | | | | | | t | Date | s | | | | | | Date | | | + + +-------+---------+------+------+-------+ | aspirin 81 MG EC | Take 81 mg by mouth. | | | | | Activ | | tablet | | | | | | e | + + +-------+---------+------+------+-------+ | clopidogrel | Take 75 mg by mouth. | | | 02/2 | 10/01 | Activ | | (PLAVIX) 75 mg | | | | /20 | /20 | e | | tablet | | | | 18 | 19 | | + + +-------+---------+------+------+-------+ | glimepiride | | | | 05/ | | Activ | | (AMARYL) 4 mg tablet | | | | /20 | | e | | | | | | 18 | | | + + +-------+---------+------+------+-------+ | | | | | 12/1 | | Activ | | sitagliptan-metFORMI | | | | /20 | | e | | N (JANUMET) 50-500 | | | | 17 | | | | MG per tablet | | | | | | | + + +-------+---------+------+------+-------+ | losartan (COZAAR) | | | | 11/2 | | Activ | | 25 mg tablet | | | | 4/20 | | e | | | | | | 17 | | | + + +-------+---------+------+------+-------+ | metoprolol | | | | 11/2 | | Activ | | tartrate (LOPRESSOR) | | | | 4/20 | | e | | 25 mg tablet | | | | 17 | | | + + +-------+---------+------+------+-------+ | albuterol | | | | 03/0 | | Activ | | (VENTOLIN HFA) 90 | | | | 7/20 | | e | | mcg/puff inhaler | | | | 18 | | | + + +-------+---------+------+------+-------+ Active Problems Not on file Encounters +--------+ + + + + | Date | Type | Specialty | Care Team | Description | +--------+ + + + + | 02/18/ | Hospital | | Kal Walker | | | 2018 | Encounter | | [facility] | | +--------+ + + + + | 02/18/ | Anesthesia | | Ranjan, | | | 2017 | Event | | JACOB Hunter | | +--------+ + + + + | 02/18/ | Procedure | | | | | 2018 | Pass | | | | +--------+ + + + + | 02/18/ | Surgery | | Kal Walker | AMPUTATION TOE, 2nd | | 2017 | | | [facility] | | +--------+ + + + + from Last 3 Months Social History + +-------+ +--------+------+ | Tobacco [...] on file | | + + + Last Filed Vital Signs + + + [...] + + + + | Weight | 104.8 kg (231 lb 0.7 | 08/25/2016 1027 PST | | | oz) | | + + + + | Height | 157.5 cm (5' 2.01") | 08/25/20161026 PST | + + + + | Body Mass Index | 42.24 | 08/25/2016 1027 PST | + + + + Plan of Treatment + + + + + | Health Maintenance | Due Date | Last Done | Comments | + + + + + | Hepatitis C | | | | | Screening | 3 | | | + + + + + | Vaccine: | | | | | Dtap/Tdap/Td (1 - | 2 | | | | Tdap) | | | | + + + + + | Vaccine: | | | | | Pneumococcal 19-64 | 2 | | | | (PPSV23 only) Medium | | | | | Risk (1 of 1 - | | | | | PPSV23) | | | | + + + + + | Colorectal Cancer | | | | | Screening | 3 | | | | (Colonoscopy) | | | | + + + + + | Vaccine: Influenza | | | | | (#1) | 8 | | | + + + + + Procedures + +--------+ + + + | [...] section. | + +--------+ + + + from Last 3 Months Results XR Foot Right 2 Vw (02/18/20188) + + + | Impressions | Performed [...] + | Zachariah, Rad Results In - 02/19/2018 0714 PDT EXAMINATION:XR FOOT RIGHT 2 VWHISTORY:post | | opCOMPARISON STUDY:NoneFINDINGS:Postoperative image demonstrates amputation of the 2nd | | digit at the mid-diaphyseal level of the 2nd proximal phalanx. The overlying soft | | tissue is unremarkable. 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.Dictated by: Kashmir | | Aaliyhaam | |COMPARISON STUDY: | |None | | [...] | + +---------+ + + POC Glucose (02/18/20188) + +-------+ + + | Component | Value | Ref Range | Performed At | + +-------+ + + | Glucose, POC | 98 | 70 - 110 mg/dL | [facility] | | | | | [facility]PITAL | | | | | LABORATORY | + +-------+ + + + + | Specimen | + + | Blood | + + + + + + + | Performing | Address | City/State/Zipcode | Phone Number | | Organization | | | | + + + + + | [facility] | [address] | [place] [address] | [phone] | | HOSPITAL LABORATORY | | | [...] cassette (A3), following | | | decalcification. NRT:[facility] PERFORMING LABORATORY: The technical | | | component was performed by [facility] | | | [place], [address] [address] (Medical | | | Director: Nicholas Escalante MD; CLIA# [id number]). Professional | | | interpretation was performed by [facility] | | | [place], [address] [facility], [facility] [[email or web address] [place] [address] (Medical | | | Director: Nicholas Escalante MD; IA# [id number]). | | | Diagnostician: Aaliyah Romero MD Pathologist Electronically | | | Signed 02/24/2018 | | + + + + +---------+ + + | Performing | Address | City/State/Zipcode | Phone Number | | Organization | | | | + +---------+ + + | [facility] | | | | | [place] | | | | + +---------+ + + from Last 3 Months Insurance + +--------+ +------+ +---------+ | Payer | Benefi | Subscriber | Type | Phone | Address | | | t Plan | ID | | | | | | / | | | | | | | Group | | | | | + +--------+ +------+ +---------+ | [facility] | PHP | [id number] | PPO | [phone] | | | PLAN | PERSON | | | [phone] | | | | [place] | | | | | | | OPEN | | | | | | | OPTION | | | | | + +--------+ +------+ +---------+ + +--------+ +--------+ + + | Guarantor Name | Accoun | Relation to | Date | Phone | Billing Address | | | t Type | Patient | of | | | | | | | | | | + +--------+ +--------+ + + | ARSENIO WALKER | Person | Self [birth year] Home: | [address] | | | al/Fam | | [phone] | [phone] [place] [address] | | | leroy | | [phone] | | + +--------+ +--------+ + +
--- OUTSIDE RECORDS SUMMARY | ~2018-04-10 | XMS | Encounter Summary ---
Demographics + + + | Address | [address] | | | [place] [address] | + + + | Home Phone | | + + + | Preferred Language | Unknown | + + + | Marital Status | Single | + + + | Buddhism Affiliation | Unknown | + + + | Race | Unknown | + + + | Ethnic Group | Unknown | + + + Author + + + | Author | [facility] | + + + | Organization | [facility] | + + + | Address | Unknown | + + + | Phone | Unavailable | + + + Support + + +---------+ + | Name | Relationship | Address | Phone | + + +---------+ + | Megan Walker | ECON | Unknown | | + + +---------+ + Care Team Providers + +------+ + | Care Systems Development Manager Name | Role | Phone | + +------+ + | Nicholas Claire MD | PCP | | + +------+ + Encounter Details +--------+ + + + + | Date | Type | Department | Care Team | Description | +--------+ + + + + | 02/21/ | Procedure | [facility] | | | | 2017 | [facility] | [address] | | | | | | Floor [facility] | | | | | | [address] [facility] | | | | | | [place] [address] | | | | | | [phone] | | | +--------+ + + + [...] [place] | | | | | | [address] | | | | | | | | +--------+---------+ + + + as of this encounter Visit Diagnoses Not on filein this encounter"
--- OUTSIDE RECORDS SUMMARY | ~2018-04-10 | XMS | Encounter Summary ---
Demographics + + + | Address | [address] | | | [place] [address] | + + + | Home Phone | | + + + | Preferred Language | Unknown | + + + | Marital Status | Single | + + + | Samaritan Affiliation | Unknown | + + + | Race | Unknown | + + + | Ethnic Group | Unknown | + + + Author + + + | Author | [facility] | | | and [place] | + + + | Organization | [facility] [...] Team Providers + +------+ + | Care Medic Technician Name | Role | Phone | + [...] | | | | | | | [place] RELEASE | | | | | | [...] | | [address] [place] | [facility], | | | | | [place], [place] | [place] [address] | | | | | [address] | [phone] | | | | | [phone] | | | +--------+ + + + [...] + + | [facility] | [address] | [place] [address] | [phone] | | HOSPITAL LABORATORY | | | | + + + + + Surgical Pathology Exam (02/18/2018) + + + | Narrative | Performed At | + + + | SPECIMEN(S): A RIGHT SECOND TOE SPECIMEN SOURCE: A. RIGHT | [facility] | | SECOND TOE CLINICAL HISTORY: [...] | | | component was performed by [facility] | | | [place], [address] [place] [address] (Medical | | | Director: Nicholas Escalante MD; CLIA# [id number]). Professional | | | interpretation was performed by [facility] | | | [place], [address] [facility], [place] [address] (Medical | | | Director: Nicholas Escalante MD; CLIA# [id number]). | | | Diagnostician: Aaliyah Romero MD [...]
--- OUTSIDE RECORDS SUMMARY | ~2018-04-10 | XMS | Encounter Summary ---
Demographics + + + | Address | [address] | | | [place] [address] | + + + | Home Phone | | + + + | Preferred Language | Unknown | + + + | Marital Status | Single | + + + | Temple Affiliation | Unknown | + + + | Race | Unknown | + + + | Ethnic Group | Unknown | + + + Author + + + | Author | [facility] | | | and [place] | + + + | Organization | [facility] | | | and [place] | [...] Team Providers + +------+ + | Care General Technician Name | Role | Phone | [...] | | | | | | | [place] RELEASE | | | | | | [...] + + | 02/18/ | Anesthesia | [facility] | Ranjan | | | 2018 | Event | HOSPITAL OR INTRA OP | JACOB Hunter [address] | | | | | [address] [place] | [address] | | | | | [place], [place] | [place] [address] | | | | | [address] | [phone] | | | | | [phone] | | | +--------+ + + + + Anesthesia Record + + + + + | Procedure Name | Responsible | Anesthesia Start | Anesthesia Stop Time | | | Anesthesiologist | Time | | + + + + + | AMPUTATION TOE, 2nd | Dale Woodruff, | 02/18/181844 | 02/18/181925 | | (Right Toe) | 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 | | | 8 | | | | | 4 | | | | | 0 | | | +----+---+ + + | | 1 | An Start | Reassessment prior to anesthesia induction/procedure. | | | 8 | | | | | 4 | | | | | 5 | | | +----+---+ + + | | 1 | Pre-Procedu | | | | 8 | ral Timeout | | | | 5 | Completed | | | | 0 | | | +----+---+ + + | | 1 | Preoxygenat | | | | 8 | ed | | | | 5 | | | | | 1 | | | +----+---+ + + | | 1 | First | | | | 9 | Inc/Proc St | | | | 0 | | | | | 3 | | | +----+---+ + + | | 1 | an stop | | | | 9 | data | | | | 2 | | | | | 5 | | | +----+---+ + + | | 1 | An Stop | Patient handed off to recovery nurse. | | | 2 | | | | | 6 | | | +----+---+ + + +------+ | Meds | +------+ + +--------+ | Name | Total | + +--------+ | midazolam 1mg/ml injection | 2 mg | + +--------+ | ceFAZolin in dextrose (ANCEF) | 2 g | | IVPB 2 g | | + +--------+ | lactated ringers (LR) infusion | 550 mL | + +--------+ + + | Name | + + | N2O Flow Rate (L/Min) | + + | O2 Flow Rate (L/Min) | + + | Insp O2 | + + | Exp N2O | + + | Exp SEV | + + | Exp ISO | + + | Exp CHAD | + + | Air Flow Rate (L/Min) | + + + + | No blood administrations on file. | + + +--------+ + + + | Type | Details | Placement | Removal | +--------+ + + + | Incisi | 02/18/18; 1921; Right; foot | 02/18/181921 by | | | on | | Kimberly Davis RN | | +--------+ + + + | Periph | 02/18/18; 1620; Right; Hand; | 02/18/18 162 by | 02/18/182014 by | | padminil | [id number] catheter system; | Ivet L | Ivet L | | IV | 20 gauge; (blood sugar, ); | AYDE Zamora | AYDE Zamora | | | distraction; catheter/device | | | | | intact; 02/18/18; 2014 | | | +--------+ + + + in this [...] | | | + +--------+ +------+------+------+ | ceFAZolin in dextrose (ANCEF) | Given | | 2 g | | | | IVPB 2 g 2 g, Intravenous, | | 8 18:40 | | | | | Administer over 30 Minutes, Prior | | PDT | | | | | to Incision, Starting Fri | | | | | | | 02/18/18 at 1456, For 1 dose, Give | | | | | | | within one hour prior to | | | | | | | incision. | | | | | | + +--------+ +------+------+------+ +---+---+ | | | +---+---+ + +---------+ +---+-------+---+ | lactated ringers (LR) infusion | New Bag | | | 100 | | | at 100 mL/hr, Intravenous, | | 8 16:20 | | mL/hr | | | CONTINUOUS, Starting 02/18/18 | | PDT | | | | | at 1645, Pre-op | | | | | | + +---------+ +---+-------+---+ +---------+ +---+---+---+ | New Bag | | | | | | | 8 16:20 | | | | | | PDT | | | | +---------+ +---+---+---+ +---+---+ | | | +---+---+ + +-------+ +------+---+---+ | midazolam (VERSED) 1 mg/mL | Given | | 2 mg | | | | injection PRN, Anxiety, Starting | | 8 18:49 | | | | | 02/18/18 at 1849, Anesthesia | | PDT | | | | | Intra-op | | | | | | + +-------+ +------+---+---+ +---+---+ | | | +---+---+ in this encounter"
--- OUTSIDE RECORDS SUMMARY | ~2018-04-10 | XMS | Encounter Summary ---
Demographics + + + | Address | [address] | | | [place] [address] | + + + | Home Phone | | + + + | Preferred Language | Unknown | + + + | Marital Status | Single | + + + | Adventism Affiliation | Unknown | + + + | Race | Unknown | + + + | Ethnic Group | Unknown | + + + Author + + + | Author | [facility] | + + + | Organization | [facility] | + + + | Address | Unknown | + + + | Phone | Unavailable | + + + Support + + +---------+ + | Name | Relationship | Address | Phone | + + +---------+ + | Megan Walker | ECON | Unknown | | + + +---------+ + Care Team Providers + +------+ + | Care Notch Machine Operator Name | Role | Phone | + +------+ + | Nicholas Claire MD | PCP | | + +------+ + Encounter Details +--------+ + + + + | Date | Type | Department | Care Team | Description | +--------+ + + + + | 03/11/ | Procedure | [facility] | | | | 2018 | [facility] | [address] | | | | | | Floor [place] | | | | | | [address] | | | | | | [place] [address] | | | | | | [phone] | | | +--------+ + + + [...] [place] | | | | | | [address] | | | | | | | | +--------+---------+ + + + as of this encounter Visit Diagnoses Not on filein this encounter
--- OUTSIDE RECORDS SUMMARY | ~2018-04-10 | XMS | Encounter Summary ---
Demographics + + + | Address | [address] | | | [place] [address] | + + + | Home Phone | | + + + | Preferred Language | Unknown | + + + | Marital Status | Single | + + + | Congregation Affiliation | Unknown | + + + | Race | Unknown | + + + | Ethnic Group | Unknown | + + + Author + + + | Author | [facility] | + + + | Organization | [facility] | + + + | Address | Unknown | + + + | Phone | Unavailable | + + + Support + + +---------+ + | Name | Relationship | Address | Phone | + + +---------+ + | Megan Walker | ECON | Unknown | | + + +---------+ + Care Team Providers + +------+ + | Care Research Laboratory Manager Name | Role | Phone | [...] | | | | vascular | | [place], [place] | | | | | disease) | | [id number] Phone: | | | | | ([facility]LY [facility]) | | [phone] | | | | | Amputation | | Fax: | | | | | stump | | [phone] | | | | | infection | [...] + + | 03/31/ | Surgery | [facility] | Johan Rashid MD | KNEE - AMPUTATION | | 2018 | | [facility] | [address] | BELOW | | | | Operating Room 888 | [place], [place] | | | | | [address] | [address] | | | | | [place] [address] | | | | | | [phone] | | | +--------+---------+ + + + [...] t mow the lawn, use a vacuum parts cleaner, or do other strenuous activities until [...] Increased redness or drainage of the incision [id number] (38.5C) or higher Trouble urinating Nausea or vomiting [id number] [employer]. [address] [place] [address], [place] [address]. All righ ts reserved. This information is [...] note may be different from the original. [facility] Service: Vascular Surgery Progress Note Hospital [...] atherectomy and balloon angioplasty on [facility]20/[facility]at [facility]. His bilateral heel wounds were healed. He [...] The patient was see n by his wildfire prevention specialist Dr. Walker and was prescribed oral antibiotics. [...] distal leg. 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 Client Liaison Dr. Garcia consulted, he discussed with patient regarding TMA and BKA, the patient opted for TMA. The patient neededright popliteal artery to posterior tibial artery bypass to improv e posterior circulation prior to TMA. He underwent Rightbelow knee popliteal artery to pos terior tibialartery bypass with ipsilateral non-reversed great saphenous vein [facility] 02/23/2018. He presented [...] ma y be different from the original. [facility] Service: Hospitalist [...] stump requiring ruiz rgical intervention. [facility] [place] [facility], when his right foot amputation [...] may be different f rom the original. [facility] Service: Vascular Surgery Progress Note Hospital [...] atherectomy and balloon angioplasty on 10/20/2017at the [facility]. His bilateral heel [...] The patient was see n by his wildfire prevention specialist Dr. Walker and was prescribed oral antibiotics. [...] distal leg. 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 Client Liaison Dr. Garcia consulted, he discussed with patient [...] and infection of his right lower extremity, [facility] ular surgery was consulted [...] may be di fferent from the original. [facility] Service: Hospitalist [...] cted stump requiring surgical intervention. [facility] [place] [facility], when his right foot amputation [...] note may be different from the original. [facility] Service: Hospitalist Progress Note Hospital Day: LOS: 2 days Post-Op Day: 1 Day Post-Op SUBJECTIVE Patient Summary: The patient is a 57 y.o.malewith significant past medical history of HTN, HLD, diabetes mellitus type II, history of PVD who recently had right popliteal to PTAbypass and right transmetatarsal amputation on 02/25/18. He wasdischarged on 03/15. [facility] [place] [facility], when his right foot a [...] Estimated Energy Needs Total Energy Estimated Needs 7485-0941 kcal Method for Estimating Needs 25-30 kcal/kg [...] Follow up date 04/05/[address] - 03/31/2018 6:22 AM PDTFormatting of this note may be different from the original. [facility] Service: Hospitalist Progress Note Hospital Day: LOS: 1 day SUBJECTIVE Patient Summary: The patient is a 57 y.o. male with significant past medical history of HTN, HLD, diabetes m ellitus type II, history of PVD who recently had right popliteal to MANAGER AIR bypass and right tra nsmetatarsal amputation on 02/25/18. He was discharged on 03/15. He was in an assisted care facility in [place] for rehabilitation, when his right foot am [...] QTC Calculation (Bezet) 425 ms Calculated P [place] 9 degrees Calculated R [place] 53 degrees Calculated T [place] 53 degrees Diagnosis Normal sinus rhythm Normal ECG No previous ECGs available This ECG contains Unconfirmed Interpretation Statements. See ED Record for Physician Inter pretation. Confirmed by MUSE READ ONLY, -COMPUTER ([id number]), managing editor Nahid John ([id number]) on 03/31/2018 3:26:17 [...] POSITIVE ANTIBODY SCREEN NEGATIVE ARM BAND NUMBER [id number] Testing performed at [facility];[address] [place] [address];[place] [address] CBC w/auto diff (reflex to manual) Collection [...] Continue abx, management per ID. Melly Baron, [facility] - 03/30/2018 8:52 PM PDTRenal Dosing Monitoring: [...] [place] | | | | | | [id number] | | | | | | | [...] Testing | 65 - 99 mg/dL | [facility] | | | performed at [facility];[address] | | | | | [address] [facility];[place], [place] | | | | | [address] | | | + + + + + + + + + + | Performing | Address | City/State/Zipcode | Phone Number | | Organization | | | | + + + + + | [facility] | [address] | [place] [address] | | + + + + + POCT glucose (04/04/2018 5:59 AM) + + + + + | Component | Value | Ref Range | Performed At | + + + + + | GLUCOSE,POC SCREEN | 127 (H)Comment: Testing | 65 - 99 mg/dL | [facility] | | | performed at [facility];[address] | | | | | [address];[place] | | | | | [address] | | | + + + + + + + + + + | Performing | Address | City/State/Zipcode | Phone Number | | Organization | | | | + + + + + | [facility] | [address] | [place] [address] | | + + + + + [...] | [facility] | | | performed at [facility], [address] | | LABORATORY | | | [address], | | | | | [place] [address] | | | + + + + + + + | Specimen | + + | Blood | + + + + + + + | Performing | Address | City/State/Zipcode | Phone Number | | Organization | | | | + + + + + | [facility] | [address] | [place] [address] | [phone] | | LABORATORY | [address] | | | + + + + + POCT glucose (04/03/2018 9:30 PM) + + + + + | Component | Value | Ref Range | Performed At | + + + + + | GLUCOSE,POC SCREEN | 146 (H)Comment: Testing | 65 - 99 mg/dL | [facility] | | | performed at [facility];[address] | | | | | [address];[place], [place] | | | | | [address] | | | + + + + + + + + + + | Performing | Address | City/State/Zipcode | Phone Number | | Organization | | | | + + + + + | [facility] | [address] | [place] [address] | | + + + + + POCT glucose (04/03/2018 4:27 PM) + + + + + | Component | Value | Ref Range | Performed At | + + + + + | GLUCOSE,POC SCREEN | 165 (H)Comment: Testing | 65 - 99 mg/dL | [facility] | | | performed at [facility];[address] | | | | | [address];[place], [place] | | | | | [address] | | | + + + + + + + + + + | Performing | Address | City/State/Zipcode | Phone Number | | Organization | | | | + + + + + | [facility] | [address] | [place] [address] | | + + + + + POCT glucose (04/03/2018 11:57 AM) + + + + + | Component | Value | Ref Range | Performed At | + + + + + | GLUCOSE,POC SCREEN | 113 (H)Comment: Testing | 65 - 99 mg/dL | [facility] | | | performed at [facility];[address] | | | | | [address];[place] | | | | | [address] | | | + + + + + + + + + + | Performing | Address | City/State/Zipcode | Phone Number | | Organization | | | | + + + + + | [facility] | [address] | [place] [address] | | + + + + + POCT glucose (04/03/2018 5:33 AM) + + + + + | Component | Value | Ref Range | Performed At | + + + + + | GLUCOSE,POC SCREEN | 101 (H)Comment: Testing | 65 - 99 mg/dL | [facility] | | | performed at [facility];[address] | | | | | [address];[place] | | | | | [address] | | | + + + + + + + + + + | Performing | Address | City/State/Zipcode | Phone Number | | Organization | | | | + + + + + | [facility] | [address] | [place] [address] | | + + + + + [...] | | | | | [place] [address] | | | + + + + + + + | Specimen | + + | Blood | + + + + + + + | Performing | Address | City/State/Zipcode | Phone Number | | Organization | | | | + + + + + | [facility] | [address] | [place] [address] | [phone] | | LABORATORY | [address] | | | + + + + + POCT glucose (04/02/2018 9:21 PM) + + + + + | Component | Value | Ref Range | Performed At | + + + + + | GLUCOSE,POC SCREEN | 139 (H)Comment: Testing | 65 - 99 mg/dL | [facility] | | | performed at [facility];[address] | | | | | [address];[place] | | | | | [address] | | | + + + + + + + + + + | Performing | Address | City/State/Zipcode | Phone Number | | Organization | | | | + + + + + | [facility] | [address] | [place] [address] | | + + + + + POCT glucose (04/02/2018 4:05 PM) + + + + + | Component | Value | Ref Range | Performed At | + + + + + | GLUCOSE,POC SCREEN | 139 (H)Comment: Testing | 65 - 99 mg/dL | [facility] | | | performed at [facility];[address] | | | | | [address];[place] | | | | | [address] | | | + + + + + + + + + + | Performing | Address | City/State/Zipcode | Phone Number | | Organization | | | | + + + + + | [facility] | [address] | [place] [address] | | + + + + + POCT glucose (04/02/2018 11:41 AM) + + + + + | Component | Value | Ref Range | Performed At | + + + + + | GLUCOSE,POC SCREEN | 130 (H)Comment: Testing | 65 - 99 mg/dL | [facility] | | | performed at [facility];[address] | | | | | [address];[place] | | | | | [address] | | | + + + + + + + + + + | Performing | Address | City/State/Zipcode | Phone Number | | Organization | | | | + + + + + | [facility] | [address] | [place] [address] | | + + + + + POCT glucose (04/02/2018 5:24 AM) + + + + + | Component | Value | Ref Range | Performed At | + + + + + | GLUCOSE,POC SCREEN | 138 (H)Comment: Testing | 65 - 99 mg/dL | [facility] | | | performed at [facility];[address] | | | | | [address];[place] | | | | | [address] | | | + + + + + + + + + + | Performing | Address | City/State/Zipcode | Phone Number | | Organization | | | | + + + + + | [facility] | [address] | [place] [address] | | + + + + + [...] the | | | | | MDRD IDVA traceable | | | | | equation.Testing | | | | | performed at [facility], [address] | | | | | [facility], | | | | | [place] [address] | | | + + + + + + + | Specimen | + + | Blood | + + + + + + + | Performing | Address | City/State/Zipcode | Phone Number | | Organization | | | | + + + + + | [facility] | [address] | [place] [address] | [phone] | | LABORATORY | [address] | | [...] | [facility] | | | performed at [facility], [address] | | LABORATORY | | | [address], | | | | | [place] [address] | | | + + + + + + + | Specimen | + + | Blood | + + + + + + + | Performing | Address | City/State/Zipcode | Phone Number | | Organization | | | | + + + + + | [facility] | [address] [place] [address] | [place] [address] | [phone] | | LABORATORY | [address] | | | + + + + + POCT glucose (04/01/2018 9:45 PM) + + + + + | Component | Value | Ref Range | Performed At | + + + + + | GLUCOSE,POC SCREEN | 236 (H)Comment: Testing | 65 - 99 mg/dL | [facility] | | | performed at [facility];[address] | | | | | [address];[place], [place] | | | | | [address] | | | + + + + + + + + + + | Performing | Address | City/State/Zipcode | Phone Number | | Organization | | | | + + + + + | [facility] | [address] | [place] [address] | | + + + + + POCT glucose (04/01/2018 4:14 PM) + + + + + | Component | Value | Ref Range | Performed At | + + + + + | GLUCOSE,POC SCREEN | 174 (H)Comment: Testing | 65 - 99 mg/dL | [facility] | | | performed at [facility];[address] | | | | | [address];[place] | | | | | [address] | | | + + + + + + + + + + | Performing | Address | City/State/Zipcode | Phone Number | | Organization | | | | + + + + + | [facility] | [address] | [place] [address] | | + + + + + POCT glucose (04/01/2018 11:10 AM) + + + + + | Component | Value | Ref Range | Performed At | + + + + + | GLUCOSE,POC SCREEN | 247 (H)Comment: Testing | 65 - 99 mg/dL | [facility] | | | performed at [facility];[address] | | | | | [address];[place] | | | | | [address] | | | + + + + + + + + + + | Performing | Address | City/State/Zipcode | Phone Number | | Organization | | | | + + + + + | [facility] | [address] | [facility] [address] | | + + + + + Protime-INR (04/01/2018 9:23 AM) + + + + + | Component | Value | Ref Range | Performed At | + + + + + | INR | 1.1Comment: REFERENCE | | [facility] | | | RANGE:0.9 - [...] | | | performed at [facility];[address] | | | | | [address];[place] | | | | | [address] | | | + + + + + + + | Specimen | + + | Blood | + + + + + + + | Performing | Address | City/State/Zipcode | Phone Number | | Organization | | | | + + + + + | [facility] | [address] | [place] [address] | | + + + + + POCT glucose (04/01/2018 5:52 AM) + + + + + | Component | Value | Ref Range | Performed At | + + + + + | GLUCOSE,POC SCREEN | 277 (H)Comment: Testing | 65 - 99 mg/dL | [facility] | | | performed at [facility];[address] | | | | | [address];[place] | | | | | [address] | | | + + + + + + + + + + | Performing | Address | City/State/Zipcode | Phone Number | | Organization | | | | + + + + + | [facility] | [address] | [place] [address] | | + + + + + [...] (H) | 65 - 99 mg/dL | [facility] | | | | | LABORATORY | + + + + + | BUN | 25 | 8 - 25 mg/dL | [facility] | | | | | LABORATORY | + + + + + | CREATININE | 0.9 | 0.70 - 1.30 mg/dL | [facility] | | | | | LABORATORY | + + + + + | BUN/CREAT | 28 | | [facility] | | | | | LABORATORY | + + + + + | CALCIUM | 8.0 (L) | 8.5 - 10.5 mg/dL | [facility] | | | | | LABORATORY | + + + + + | EGFR | >60Comment: GFR <60: | >60 mL/min/1.73m2 | [facility] | | | CHRONIC KIDNEY DISEASE, [...] | | | | | performed at [facility], [address] | | | | | [facility], | | | | | [place], [place] [address] | | | + + + + + + + | Specimen | + + | Blood | + + + + + + + | Performing | Address | City/State/Zipcode | Phone Number | | Organization | | | | + + + + + | [facility] | [address] | [place] [address] | [phone] | | LABORATORY | [address] | | [...] performed at | | | | | [facility], [address] | | | | | [place] | | | | | [address] | | | + + + + + + + | Specimen | + + | Blood | + + + + + + + | Performing | Address | City/State/Zipcode | Phone Number | | Organization | | | | + + + + + | [facility] | [address] | [place] [address] | [phone] | | LABORATORY | [address] | | | + + + + + Pathology histology - tissue (04/01/2018) + + | Specimen | + + | Tissue | + + + + + | Narrative | Performed At | + + + | SPECIMEN(S): A Rt. BELOW KNEE AMPUTATION SPECIMEN SOURCE: A. | [facility] | | Rt. BELOW KNEE AMPUTATION CLINICAL [...] Received fresh designated | | | "right hjijc-oyh-wpvu amputation" consists of a right svcix-kqm-zouj | | | amputated leg that is 29.5 cm from fwty-dw-vxkddntvu margin and has a | | | [...] | surgical resection margin is grossly viable. Merchandise Examiner sections | | | are submitted in [...] preparation was performed | | | by [facility], [facility], [address] [place] [address]., | | | [place] [address] (Cement Or Concrete Finishing Supervisor: Ha Couch M.D.; | | | [facility]#: [id number]). Diagnostician: Breann Melara MD Pathologist | | [...] Testing | 65 - 99 mg/dL | [facility] | | | performed at [facility];[address] | | | | | [address];[place] | | | | | [address] | | | + + + + + + + + + + | Performing | Address | City/State/Zipcode | Phone Number | | Organization | | | | + + + + + | [facility] | [address] | [place] [address] | | + + + + + POCT glucose (03/31/2018 2:41 PM) + + + + + | Component | Value | Ref Range | Performed At | + + + + + | GLUCOSE,POC SCREEN | 118 (H)Comment: Testing | 65 - 99 mg/dL | [facility] | | | performed at [facility];[address] | | | | | [address];[place] | | | | | [address] | | | + + + + + + + + + + | Performing | Address | City/State/Zipcode | Phone Number | | Organization | | | | + + + + + | [facility] | [address] | [place] [address] | | + + + + + POCT glucose (03/31/2018 11:30 AM) + + + + + | Component | Value | Ref Range | Performed At | + + + + + | GLUCOSE,POC SCREEN | 94Comment: Testing | 65 - 99 mg/dL | [facility] | | | performed at [facility];[address] | | | | | [address];[place] | | | | | [address] | | | + + + + + + + + + + | Performing | Address | City/State/Zipcode | Phone Number | | Organization | | | | + + + + + | [facility] | [address] | [place] [address] | | + + + + + [...] [address], | | | | | [place] [address] | | | + + + + + + + | Specimen | + + | Blood | + + + + + + + | Performing | Address | City/State/Zipcode | Phone Number | | Organization | | | | + + + + + | [facility] | [address] | [place] [address] | [phone] | | LABORATORY | [address] | | | + + + + + Type and screen (03/31/2018 6:13 AM) + + + + + | Component | Value | Ref Range | Performed At | + + + + + | ABO/RH(D) | A POSITIVE | | [facility] | + + + + + | ANTIBODY SCREEN | NEGATIVE | | [facility] | + + + + + | ARM BAND NUMBER | [id number] | | [facility] | | | performed at [facility];[address] | | | | | [address];[place] | | | | | [address] | | | + + + + + + + | Specimen | + + | Blood | + + + + + + + | Performing | Address | City/State/Zipcode | Phone Number | | Organization | | | | + + + + + | [facility] | [address] | [place] [address] | | + + + + + Protime-INR (03/31/2018 6:13 AM) + + + + + | Component | Value | Ref Range | Performed At | + + + + + | INR | 1.7Comment: REFERENCE | | [facility] | | | RANGE:0.9 - [...] | | | performed at [facility];[address] | | | | | [address];[place] | | | | | [address] | | | + + + + + + + | Specimen | + + | Blood | + + + + + + + | Performing | Address | City/State/Zipcode | Phone Number | | Organization | | | | + + + + + | [facility] | [address] | [place] [address] | | + + + + + Magnesium (03/31/2018 6:13 AM) + + + + + | Component | Value | Ref Range | Performed At | + + + + + | MAGNESIUM | 2.1Comment: Testing | 1.7 - 2.4 mg/dL | [facility] | | | performed at [facility], [facility] [address] | | LABORATORY | | | [facility], | | | | | [place] [address] | | | + + + + + + + | Specimen | + + | Blood | + + + + + + + | Performing | Address | City/State/Zipcode | Phone Number | | Organization | | | | + + + + + | [facility] | [address] | [place] [address] | [phone] | | LABORATORY | [address] | | [...] 7.3 | 6.3 - 8.2 g/dL | [facility] | | | | | LABORATORY | + + + + + | Albumin | 3.0 (L) | 3.6 - 5.0 g/dL | [facility] | | | | | LABORATORY [...] | | | | | performed at [facility], [address] | | | | | [facility], | | | | | [place] [address] | | | + + + + + + + | Specimen | + + | Blood | + + + + + + + | Performing | Address | City/State/Zipcode | Phone Number | | Organization | | | | + + + + + | [facility] | [address] | [place] [address] | [phone] | | LABORATORY | [address] | | | + + + + + POCT glucose (03/31/2018 6:07 AM) + + + + + | Component | Value | Ref Range | Performed At | + + + + + | GLUCOSE,POC SCREEN | 89Comment: Testing | 65 - 99 mg/dL | [facility] | | | performed at [facility];[address] | | | | [address];[place], [place] | | | | | [address] | | | + + + + + + + + + + | Performing | Address | City/State/Zipcode | Phone Number | | Organization | | | | + + + + + | [facility] | [address] | [place] [address] | | + + + + + POCT glucose (03/30/2018 9:12 PM) + + + + + | Component | Value | Ref Range | Performed At | + + + + + | GLUCOSE,POC SCREEN | 77Comment: Testing | 65 - 99 mg/dL | [facility] | | | performed at [facility];[address] | | | | | [address];[place] | | | | | [address] | | | + + + + + + + + + + | Performing | Address | City/State/Zipcode | Phone Number | | Organization | | | | + + + + + | [facility] | [address] | [place] [address] | | + + + + + [...] + + + + | Calculated P [place] | 9 | degrees | [facility] | + + + + + | Calculated R [place] | 53 | degrees | [facility] | + + + + + | Calculated T [place] | 53 | degrees | [facility] EKG [...] -COMPUTER (500), | | | | | managing editor Nahid John | | | | | Jesse (123) on 03/31/2018 | | | | | 3:26:17 AM | | | + + + + + + + + + + | Performing | Address | City/State/Zipcode | Phone Number | | Organization | | | | + + + + + | [facility] | [address] | [place] [address] | | + + + + + [...] | + + + + + | [facility] | [address] | [place] [address] | [phone] | | LABORATORY | Blvd. | | | + + + + + | [facility] | [address] | [place] [address] | | + + + + + MRSA by PCR (03/30/2018 5:39 PM) + + + + + | Component | Value | Ref Range | Performed At | + + + + + | SOURCE | SARAH(NOSE) | | [facility] | + + + + + | MRSA PCR | NEGATIVEComment: Testing | NEGATIVE | [facility] | | | performed at [facility];[address] | | | | | [address];[place] | | | | | [address] | | | + + + + + + + | Specimen | + + | Nasopharyngeal - | | Nares(Nose) | + + + + + + + | Performing | Address | City/State/Zipcode | Phone Number | | Organization | | | | + + + + + | [facility] | [address] | [place] [address] | | + + + + + Troponin I (03/30/2018 5:12 PM) + + + + + | Component | Value | Ref Range | Performed At | + + + + + | TROPONIN I | <0.020Comment: 0.00 to | 0.00 - 0.10 ng/mL | [facility] | | | 0.10 CONSISTENT | [...] | | | | CRITERIA FOR ACUTE HI | | | | | Testing performed at | | | | | [facility];[address] [place] [address] | | | | | [facility];[place] [address] | | | + + + + + + + + + + | Performing | Address | City/State/Zipcode | Phone Number | | Organization | | | | + + + + + | [facility] | [address] | [place] [address] | | + + + + + Sedimentation Rate (ESR) (03/30/2018 5:12 PM) + + + + + | Component | Value | Ref Range | Performed At | + + + + + | ESR | 67 (H)Comment: Testing | 0 - 20 mm/Hr | [facility] | | | performed at [facility];[address];[place] | | | | | [address] | | | + + + + + + + | Specimen | + + | Blood | + + + + + + + | Performing | Address | City/State/Zipcode | Phone Number | | Organization | | | | + + + + + | [facility] | [address] | [place] [address] | | + + + + + C-reactive protein (03/30/2018 5:12 PM) + + + + + | Component | Value | Ref Range | Performed At | + + + + + | CRP | 3.1 (H)Comment: Testing | <0.5 mg/dL | [facility] | | | performed at [facility];[address] | | | | | [address];[place] | | | | | [address] | | | + + + + + + + | Specimen | + + | Blood | + + + + + + + | Performing | Address | City/State/Zipcode | Phone Number | | Organization | | | | + + + + + | [facility] | [address] | [place] [address] | | + + + + + aPTT (03/30/2018 5:12 PM) + + + + + | Component | Value | Ref Range | Performed At | + + + + + | APTT | 55 (H)Comment: Testing | 23 - 32 seconds | [facility] | | | performed at [facility];[address] | | | | | [address];[place] | | | | | [address] | | | + + + + + + + | Specimen | + + | Blood | + + + + + + + | Performing | Address | City/State/Zipcode | Phone Number | | Organization | | | | + + + + + | [facility] | [address] | [place] [address] | | + + + + + Protime (03/30/2018 5:12 PM) + + + + + | Component | Value | Ref Range | Performed At | + + + + + | INR | 3.0Comment: REFERENCE | | [facility] | | | RANGE:0.9 - [...] | | | performed at [facility];[address] | | | | | [address];[place], [place] | | | | | [address] | | | + + + + + + + | Specimen | + + | Blood | + + + + + + + | Performing | Address | City/State/Zipcode | Phone Number | | Organization | | | | + + + + + | [facility] | [address] | [place] [address] | | + + + + + [...] 4.9 | 1.3 - 4.9 g/dL | [facility] | + + + + + | A/G | 0.6 (L) | 1.0 - 2.4 | [facility] | + + + + + | TBIL | 0.6 | 0.1 - 1.5 mg/dL | [facility] | + + + + + | ALK PHOS | 98 | 35 - 115 U/L | [facility] | + + + + + | AST | 19 | 10 - 45 U/L | [facility] | + + + + + | ALT | 29 | 10 - 65 U/L | [facility] | + + + + + | EGFR | >60Comment: GFR <60: | >60 mL/min/1.73m2 | [facility] | | | CHRONIC KIDNEY [...] the | | | | | MDRD [facility] traceable | | | | | equation.Testing | | | | | performed at [facility];[address] | | | | | [facility];[place], [place] | | | | | [address] | | | + + + + + + + | Specimen | + + | Blood | + + + + + + + | Performing | Address | City/State/Zipcode | Phone Number | | Organization | | | | + + + + + | [facility] | [address] | [place] [address] | | + + + + + CBC with differential (03/30/2018 5:12 PM) + + + + + | Component | Value | Ref Range | Performed At | + + + + + | WBC | 8.04 | 3.80 - 11.00 K/uL | [facility] | + + + + + | RBC | 4.38 | 4.20 - 5.70 M/uL | [facility] | + + + + + | HGB | 12.8 (L) | 13.2 - 17.0 g/dL | [facility] | + + + + + | HCT | 37.3 (L) | 39.0 - 50.0 % | [facility] | + + + + [...] 255 | 150 - 400 K/uL | [facility] | + + + + + [...] Testing | 0.00 - 0.10 K/uL | [facility] | | | performed at [facility];[address] | | | | | [address];[place] | | | | | [address] | | | + + + + + + + | Specimen | + + | Blood | + + + + + + + | Performing | Address | City/State/Zipcode | Phone Number | | Organization | | | | + + + + + | [facility] | [address] | [place] [address] | | + + + + + [...] + + + | [facility] | [address] | [place] [address] | [phone] | | LABORATORY | Blvd. | | | + + + + + in this encounter Visit Diagnoses Not on filein this encounter Admitting Diagnoses + + | Diagnosis | + + | PVD (peripheral vascular disease) ([facility]) | + + | Peripheral vascular disease, [...] PDT | | | | | Starting [facility] 03/31/18 at 1850 | | | | [...] | | | | | (-), Starting [facility] 03/31/18 at | | | | | [...] | | | | | Constipation, Starting [facility] 03/31/18 | | | | | | [...] PRN, Nausea, Vomiting, | | | Starting [facility] 03/31/18 at 1633 | | + +---+ | | | + +---+ | ondansetron (ZOFRAN-ODT) | | | disintegrating tablet 4 mg 4 mg, | | | Oral, Every 6 Hours PRN, Nausea, | | | Vomiting, Starting [facility] 03/30/18 at | | | 2007 | | + +---+ | | | + +---+ | ondansetron (ZOFRAN-ODT) | | | disintegrating tablet 4 mg 4 mg, | | | Oral, Every 6 Hours PRN, Nausea, | | | Vomiting, Starting [facility] 03/31/18 at | | | 1633 | [...]
--- OUTSIDE RECORDS SUMMARY | ~2018-04-10 | XMS | Clinical Summary ---
Demographics + + + | Address | [address] | | | [place] [address] | + + + | Home Phone | | + + + | Preferred Language | Unknown | + + + | Marital Status | Single | + + + | Hindu Affiliation | Unknown | + + + | Race | Unknown | + + + | Ethnic Group | Unknown | + + + Author + + + | Author | [facility] | | | and [place]zekiel[place] | + + + | Organization | [facility] | | | and [place] [...] Team Providers + +------+ + | Care Salesperson Men'S Furnishings Name | Role | Phone | + [...] amputation as above.Dictated by: [place] | | Aaliyaham | |COMPARISON STUDY: | |None | | [...] + + | [facility] | [address] | [place] [address] | [phone] | | HOSPITAL LABORATORY | | | [...] cassette (A3), following | | | decalcification. NRT:[facility] PERFORMING LABORATORY: The technical | | | [facility] | | | [place], [address] [address] (Medical | | | Director: Nicholas Escalante MD; CLIA# [id number]). Professional | | | interpretation was performed by [facility] | | | [place], [address] [place] [address] (Medical | | | Director: Nicholas Escalante MD; IA# [id number]). | | | Diagnostician: Aaliyah Romero MD [...] | | + +--------+ +------+ +---------+ | FOR[facility]LY [facility] | PHP | [phone] | PPO | [phone] | | PLAN | PERSON | [...] | 1961 | [phone] [place] [address] | | | leroy | | | [phone] | | + +--------+ +--------+ + +
--- OUTSIDE RECORDS SUMMARY | ~2018-04-10 | XMS | Encounter Summary ---
Demographics + + + | Address | [address] | | | [place] [address] | + + + | Home Phone | | + + + | Preferred Language | Unknown | + + + | Marital Status | Single | + + + | Gnosticism Affiliation | Unknown | + + + | Race | Unknown | + + + | Ethnic Group | Unknown | + + + Author + + + | Author | [facility] [employer] | + + + | Organization | [facility] | + + + | Address | Unknown | + + + | Phone | Unavailable | + + + Support + + +---------+ + | Name | Relationship | Address | Phone | + + +---------+ + | Megan Walker | ECON | Unknown | | + + +---------+ + Care Team Providers + +------+ + | Care Expansion Envelope Maker Hand Name | Role | Phone | + +------+ + | Nicholas Claire MD | PCP | | + +------+ + Encounter Details +--------+ + + + + | Date | Type | Department | Care Team | Description | +--------+ + + + + | 02/23/ | Procedure | [facility] | | | | 2017 | [facility] | | | | | | Operating Room [address] | | | | | | [address] | | | | | | [place] [address] | | | | | | [phone] | | | +--------+ + + + [...] [place] | | | | | | [address] | | | | | | | | +--------+---------+ + + + as of this encounter Visit Diagnoses Not on filein this encounter"
--- OUTSIDE RECORDS SUMMARY | ~2018-04-10 | XMS | Encounter Summary ---
Demographics + + + | Address | [address] | | | [place] [address] | + + + | Home Phone | | + + + | Preferred Language | Unknown | + + + | Marital Status | Single | + + + | Pentecostal Affiliation | Unknown | + + + | Race | Unknown | + + + | Ethnic Group | Unknown | + + + Author + + + | Author | [facility] [employer] | + + + | Organization | [facility] | + + + | Address | Unknown | + + + | Phone | Unavailable | + + + Support + + +---------+ + | Name | Relationship | Address | Phone | + + +---------+ + | Megan Walker | ECON | Unknown | | + + +---------+ + Care Team Providers + +------+ + | Care Interstate Bus Driver Name | Role | Phone | + +------+ + | Nicholas Claire MD | PCP | | + +------+ + Encounter Details +--------+ + + + + | Date | Type | Department | Care Team | Description | +--------+ + + + + | 02/22/ | Procedure | [facility] | | | | 2017 | [facility] | [address] | | | | | | Floor [facility] | | | | | | [address] | | | | | | [place] [address] | | | | | | [phone] | | | +--------+ + + + [...] [place] | | | | | | [address] | | | | | | | | +--------+---------+ + + + as of this encounter Visit Diagnoses Not on filein this encounter"
--- OUTSIDE RECORDS SUMMARY | ~2018-04-10 | XMS | Encounter Summary ---
Demographics + + + | Address | [address] | | | [place] [address] | + + + | Home Phone | | + + + | Preferred Language | Unknown | + + + | Marital Status | Single | + + + | Congregational Affiliation | Unknown | + + + | Race | Unknown | + + + | Ethnic Group | Unknown | + + + Author + + + | Author | [facility] [employer] [facility] | + + + | Organization | [facility] | + + + | Address | Unknown | + + + | Phone | Unavailable | + + + Support + + +---------+ + | Name | Relationship | Address | Phone | + + +---------+ + | Megan Walker | ECON | Unknown | | + + +---------+ + Care Team Providers + +------+ + | Care Loading And Unloading Supervisor Name | Role | Phone | + +------+ + | Nciholas Claire MD | PCP | | + +------+ + Encounter Details +--------+ + + + + | Date | Type | Department | Care Team | Description | +--------+ + + + + | 02/22/ | Procedure | [facility] | | | | 2017 | [facility] | [address] | | | | | | Floor [facility] | | | | | | [address] | | | | | | [place] [address] | | | | | | [phone] | | | +--------+ + + + [...] [place] | | | | | | [address] | | | | | | | | +--------+---------+ + + + as of this encounter Visit Diagnoses Not on filein this encounter"
--- OUTSIDE RECORDS SUMMARY | ~2018-04-10 | XMS | Encounter Summary ---
Demographics + + + | Address | [address] | | | [place] [address] | + + + | Home Phone | | + + + | Preferred Language | Unknown | + + + | Marital Status | Single | + + + | Hinduism Affiliation | Unknown | + + + | Race | Unknown | + + + | Ethnic Group | Unknown | + + + Author + + + | Author | [facility] [employer] | + + + | Organization | [facility] [facility] | + + + | Address | Unknown | + + + | Phone | Unavailable | + + + Support + + +---------+ + | Name | Relationship | Address | Phone | + + +---------+ + | Megan Walker | ECON | Unknown | | + + +---------+ + Care Team Providers + +------+ + | Care New Car Get Ready Mechanic Name | Role | Phone | + +------+ + | Nicholas Claire MD | PCP | | + +------+ + Encounter Details +--------+ + + + + | Date | Type | Department | Care Team | Description | +--------+ + + + + | 03/30/ | Orders Only | [facility] | Chris Duggan DNP | | | 2018 | | Vascular Surgery | [address] | | | | | [address] | [place] | | | | | E [place], [place] | [address] | | | | | [address] | | | | | | [phone] | | | +--------+ + + + [...] [place] | | | | | | [id number] | | | | | | | | +--------+---------+ + + + as of this encounter Procedures + +--------+ + + + | Procedure Name | Priori | Date/Time | Associated Diagnosis | Comments | | | ty | | | | + +--------+ + + + | CASE REQUEST | Routin | 03/30/2018 | | | | OPERATING ROOM | e | 1:25 PM | | | | | | PDT | | | + +--------+ + + + in this encounter Visit Diagnoses Not on filein this encounter
--- OUTSIDE RECORDS SUMMARY | ~2018-04-10 | XMS | Encounter Summary ---
Demographics + + + | Address | [address] | | | [place] [address] | + + + | Home Phone | | + + + | Preferred Language | Unknown | + + + | Marital Status | Single | + + + | Rastafarian Affiliation | Unknown | + + + | Race | Unknown | + + + | Ethnic Group | Unknown | + + + Author + + + | Author | [facility] [employer] | + + + | Organization | [facility] | + + + | Address | Unknown | + + + | Phone | Unavailable | + + + Support + + +---------+ + | Name | Relationship | Address | Phone | + + +---------+ + | Megan Walker | ECON | Unknown | | + + +---------+ + Care Team Providers + +------+ + | Care Salesperson Stereo Equipment Name | Role | Phone | + +------+ + | Nicholas Claire MD | PCP | | + +------+ + Encounter Details +--------+ + + + + | Date | Type | Department | Care Team | Description | +--------+ + + + + | 03/03/ | Orders Only | [facility] | Yesenia Witt, | Foot ulcer with | | 2017 | | Vascular Surgery | RN | necrosis of bone, | | | | [address] | | right ([facility]) (Primary | | | | [place] | | Dx) | | | | [address] | | | | | | [phone] | | | +--------+ + + + [...] | | | | | | [place] | | | | | | [address] | | | | | | | | +--------+---------+ + + + as of this encounter Results US bypass graft lower extremity unilateral (03/11/2018 12:32 PM) + + + | Impressions | Performed At | + + + | 1. Inflow via the right common femoral artery, superficial | [facility] | | femoral artery and proximal popliteal artery shows normal velocity and | RADIOLOGY | | triphasic waveforms. 2. The distal popliteal-distal posterior | | | tibial artery bypass graft is occluded and the distal posterior tibial | | | artery is also occluded. 3. The anterior tibial and peroneal | | | arteries show triphasic flow to the foot. | | + + + + + + | Narrative | Performed At | + + + | ARSENIO WALKER US BYPASS GRAFT LOWER EXTREMITY UNILATERAL | [facility] | | 03/11/2018 12:32 PM HISTORY: 57 years. Male. Right popliteal | RADIOLOGY | | to posterior artery bypass RSV graft performed on 02/23/2018. | | | TECHNIQUE: FINDINGS: Common femoral artery: PSV: 84.2 (cm/s). Flow: | | | Triphasic. Deep femoral artery: PSV: 60.0 (cm/s). Flow: Triphasic. | | | Superficial femoral artery-proximal: PSV: 74.5 (cm/s). Flow: | | | Triphasic. Superficial femoral artery-mid: PSV: 74.5 (cm/s). Flow: | | | Triphasic. Superficial femoral artery-distal: PSV: 75.4 (cm/s). Flow: | | | Triphasic. Popliteal artery - proximal: PSV: 86.4 (cm/s). Flow: | | | Triphasic. Popliteal artery - distal: Occluded. Anterior tibial | | | artery-proximal: PSV: 137.8 (cm/s). Flow: Triphasic. Anterior tibial | | | artery-distal: PSV: 84.0 (cm/s). Flow: Triphasic. Posterior tibial | | | artery-proximal: PSV: (cm/s). Flow: Triphasic. Posterior tibial | | | artery-distal: PSV: (cm/s). Flow: Triphasic. Peroneal | | | artery-proximal: PSV: 55.5 (cm/s). Flow: Triphasic. Peroneal | | | artery-distal: PSV: 105.2 (cm/s). Flow: Triphasic. BYPASS GRAFT | | | EVALUATION Inflow (distal popliteal artery): Flow: Occluded. | | | Proximal anastomosis: Occluded. Graft proximal: Occluded. Graft mid: | | | Occluded. Graft distal: Occluded. Distal anastomosis: Occluded. | | | Outflow (POWER DRIVEN BRUSH MAKER): Occluded. | | + + + + + | Procedure Note | + + | Zachariah, Rad Results In - 03/11/2018 12:59 PM PDT [facility] | | EXTREMITY UNILATERAL03/11/2018 12:32 PMHISTORY:57 years. Male. Right popliteal to | | posterior artery bypass RSV graft performed on 02/23/2018.TECHNIQUE:FINDINGS:Common | | femoral artery: PSV: 84.2 (cm/s). Flow: Triphasic.Deep femoral artery: PSV: 60.0 (cm/s). | | Flow: Triphasic.Superficial femoral artery-proximal: PSV: 74.5 (cm/s). Flow: | | Triphasic.Superficial femoral artery-mid: PSV: 74.5 (cm/s). Flow: Triphasic.Superficial | | femoral artery-distal: PSV: 75.4 (cm/s). Flow: Triphasic.Popliteal artery - proximal: | | PSV: 86.4 (cm/s). Flow: Triphasic.Popliteal artery - distal: Occluded.Anterior tibial | | artery-proximal: PSV: 137.8 (cm/s). Flow: Triphasic.Anterior tibial artery-distal: PSV: | | 84.0 (cm/s). Flow: Triphasic.Posterior tibial artery-proximal: PSV: (cm/s). Flow: | | Triphasic.Posterior tibial artery-distal: PSV: (cm/s). Flow: Triphasic.Peroneal | | artery-proximal: PSV: 55.5 (cm/s). Flow: Triphasic.Peroneal artery-distal: PSV: 105.2 | | (cm/s). Flow: Triphasic.BYPASS GRAFT EVALUATIONInflow (distal popliteal artery): Flow: | | Occluded.Proximal anastomosis: Occluded.Graft proximal: Occluded.Graft mid: | | Occluded.Graft distal: Occluded.Distal anastomosis: Occluded.Outflow (POWER DRIVEN BRUSH MAKER): | | Occluded.IMPRESSION:1. Inflow via the right common femoral artery, superficial femoral | | artery and proximal popliteal artery shows normal velocity and triphasic waveforms.2. | | The distal popliteal-distal posterior tibial artery bypass graft is occluded and the | | distal posterior tibial artery is also occluded.3. The anterior tibial and peroneal | | arteries show triphasic flow to the foot.Electronically signed by Maurisio Singh DO on | | 03/11/2018 12:54 PM | |Peroneal artery-distal: PSV: 105.2 (cm/s). Flow: Triphasic. | | | |BYPASS GRAFT EVALUATION | |Inflow (distal popliteal artery): Flow: Occluded. | |Proximal anastomosis: Occluded. | |Graft proximal: Occluded. | |Graft mid: Occluded. | |Graft distal: Occluded. | |Distal anastomosis: Occluded. | |Outflow (POWER DRIVEN BRUSH MAKER): Occluded. | | | |IMPRESSION: | |1. Inflow via the right common femoral artery, superficial femoral artery and proximal pop liteal artery shows normal velocity and triphasic waveforms. | |2. The distal popliteal-distal posterior tibial artery bypass graft is occluded and the di stal posterior tibial artery is also occluded. | |3. The anterior tibial and peroneal arteries show triphasic flow to the foot. | | | | | + + + + + + + | Performing | Address | City/State/Zipcode | Phone Number | | Organization | | | | + + + + + | [facility] | [address] | [place] [address] | | + + + + + in this encounter Visit Diagnoses + + | Diagnosis | + + | Foot ulcer with necrosis of bone, right (HCC) - Primary | + +"
--- OUTSIDE RECORDS SUMMARY | ~2018-04-10 | XMS | Encounter Summary ---
Demographics + + + | Address | [address] | | | [place] [address] | + + + | Home Phone | | + + + | Preferred Language | Unknown | + + + | Marital Status | Single | + + + | Adventist Affiliation | Unknown | + + + | Race | Unknown | + + + | Ethnic Group | Unknown | + + + Author + + + | Author | [facility] [employer] | + + + | Organization | [facility] [facility] | + + + | Address | Unknown | + + + | Phone | Unavailable | + + + Support + + +---------+ + | Name | Relationship | Address | Phone | + + +---------+ + | Megan Walker | ECON | Unknown | | + + +---------+ + Care Team Providers + +------+ + | Care Shake Maker Name | Role | Phone | + +------+ + | Nicholas Claire MD | PCP | | + +------+ + Encounter Details +--------+ + + + + | Date | Type | Department | Care Team | Description | +--------+ + + + + | 02/23/ | Procedure | [facility] | | | | 2017 | [facility] | | | | | | Operating Room [address] | | | | | | [address] | | | | | | [place] [address] | | | | | | [phone] | | | +--------+ + + + [...] [place] | | | | | | [address] | | | | | | | | +--------+---------+ + + + as of this encounter Visit Diagnoses Not on filein this encounter"
--- OUTSIDE RECORDS SUMMARY | ~2018-04-10 | XMS | Encounter Summary ---
Demographics + + + | Address | [address] | | | [place] [address] | + + + | Home Phone [...] + + + | Author | [facility] [employer] | + + + | Organization | [facility] [employer] | + + + | Address | Unknown | + + + | Phone | Unavailable | + + + Support + + +---------+ + | Name | Relationship | Address | Phone | + + +---------+ + | Megan Walker | ECON | Unknown | | + + +---------+ + Care Team Providers + +------+ + | Care Bridal Gown Fitter Name | Role | Phone | + +------+ + | Nicholas Claire MD | PCP | | + +------+ + Encounter Details +--------+ + + + + | Date | Type | Department | Care Team | Description | +--------+ + + + + | 03/30/ | Orders Only | [facility] | Chris Duggan DNP | | | 2018 | | Vascular Surgery | [address] | | | | | [address] | [place] | | | | | E [place], [place] | [address] | | | | | [address] | | | | | | [phone] | | | +--------+ + + + [...] | Office | Vascular Surgery | Chris Dugagn DNP | | | 2017 | Visit | | [address] | | | | | | [place] | | | | | | [id number] | | | | | | | [...]
--- OUTSIDE RECORDS SUMMARY | ~2018-04-10 | XMS | Encounter Summary ---
Demographics + + + | Address | [address] | | | [place] [address] | + + + | Home Phone [...] + + + | Author | [facility] | + + + | Organization | [facility] | + + + | Address | Unknown | + + + | Phone | Unavailable | + + + Support + + +---------+ + | Name | Relationship | Address | Phone | + + +---------+ + | Megan Walker | ECON | Unknown | | + + +---------+ + Care Team Providers + +------+ + | Care Building Stonecutter Name | Role | Phone | + +------+ + | Nicholas Claire MD | PCP | | + +------+ + Encounter Details +--------+ + + + + | Date | Type | Department | Care Team | Description | +--------+ + + + + | 03/30/ | Telephone | [facility] | Yesenia Witt, | | | 2017 | | Vascular Surgery | RN | | | | | [address] | | | | | | [place] | | | | | | [address] | | | | | | [phone] | | | +--------+ + + + [...] [place] | | | | | | [id number] | | | | | | | | +--------+---------+ + + + as of this encounter Visit Diagnoses Not on filein this encounter
--- OUTSIDE RECORDS SUMMARY | ~2018-04-10 | XMS | Encounter Summary ---
Demographics + + + | Address | [address] | | | [place] [address] | + + + | Home Phone | | + + + | Preferred Language | Unknown | + + + | Marital Status | Single | + + + | Judaism Affiliation | Unknown | + + + | Race | Unknown | + + + | Ethnic Group | Unknown | + + + Author + + + | Author | [facility] | + + + | Organization | [facility] | + + + | Address | Unknown | + + + | Phone | Unavailable | + + + Support + + +---------+ + | Name | Relationship | Address | Phone | + + +---------+ + | Megan Walker | ECON | Unknown | | + + +---------+ + Care Team Providers + +------+ + | Care Radiotelephone Operator Name | Role | Phone | + +------+ + | Nicholas Claire MD | PCP | | + +------+ + Encounter Details +--------+ + + + + | Date | Type | Department | Care Team | Description | +--------+ + + + + | 03/11/ | Procedure | [facility] | | | | 2018 | [facility] | [address] | | | | | | Floor [place] | | | | | | [address] | | | | | | [place] [address] | | | | | | [phone] | | | +--------+ + + + [...]
--- OUTSIDE RECORDS SUMMARY | ~2018-04-10 | XMS | Encounter Summary ---
Demographics + + + | Address | [address] | | | [place] [address] | + + + | Home Phone | | + + + | Preferred Language | Unknown | + + + | Marital Status | Single | + + + | Mormonism Affiliation | Unknown | + + + | Race | Unknown | + + + | Ethnic Group | Unknown | + + + Author + + + | Author | [facility] | | | and [place] | + + + | Organization | [facility] | | | and [place] | [...] Team Providers + +------+ + | Care Cant Hooker Name | Role | Phone | + [...] | | | | | | | [place] | | | | | | [...] | | [place], [place] | [place] [address] | | | | | [address] | [phone] | | | | | [phone] | | | +--------+ + + + + Anesthesia Record + + + + + | Procedure Name | Responsible | Anesthesia Start | Anesthesia Stop Time | | | Anesthesiologist | Time | | + + + + + | AMPUTATION TOE, 2nd | Dale Woodruff, | 02/18/181844 | 02/18/181925 | | (Right Toe) | ENVIRONMENTAL ENGINEERING ASSISTANT | | | + + + + [...] | 02/18/182014 by | | padminil | [id number] catheter system; | Ivet L | Ivet [...]
--- OUTSIDE RECORDS SUMMARY | ~2018-04-10 | XMS | Encounter Summary ---
Demographics + + + | Address | [address] | | | [place] [address] | + + + | Home Phone | | + + + | Preferred Language | Unknown | + + + | Marital Status | Single | + + + | Scientologist Affiliation | Unknown | + + + | Race | Unknown | + + + | Ethnic Group | Unknown | + + + Author + + + | Author | [facility] | + + + | Organization | [facility] | + + + | Address | Unknown | + + + | Phone | Unavailable | + + + Support + + +---------+ + | Name | Relationship | Address | Phone | + + +---------+ + | Megan Walker | ECON | Unknown | | + + +---------+ + Care Team Providers + +------+ + | Care Medical Registrar Name | Role | Phone | + [...] | | | | vascular | | [place], [place] | | | | | disease) | | [address] Phone: | | | | | ([facility]) | | [phone] | | | | | Amputation | | Fax: | | | | | stump | | [phone] | | | | | infection | | | | | | | ([facility]) | | | | | | | [...] | +--------+ + + + + | 03/31/ | Anesthesia | [facility] | Pete Allen, | | | 2018 | [facility] | [facility]GO BRACER [address] | | | | | Operating Room [address] | [place] [address] | | | | | [address] | [phone] | | | | | [place] [address] | | | | | | [phone] | | | +--------+ + + + + Anesthesia Record + + + + + | Procedure Name | Responsible | Anesthesia Start | Anesthesia Stop Time | | | Anesthesiologist | Time | | + + + + + | KNEE - AMPUTATION | Pete Allen CRNA | 03/31/18 1210 | 03/31/18 1440 | | BELOW (Right Leg) | | | | + + + + + +----+---+ + + | Da | T | Event | Comment | | te | i | | | | | m | | | | | e | | | +----+---+ + + | 08 | 1 | An Start | Pre-anesthetic vital signs reassessed. | | /0 | 2 | | | | 2/ | 1 | | | | 20 | 0 | | | | 18 | | | | +----+---+ + + | | 1 | An | | | | 2 | Induction | | | | 1 | | | | | 7 | | | +----+---+ + + | | 1 | An | | | | 2 | Intubation | | | | 2 | | | | | 0 | | | +----+---+ + + | | 1 | Quick Note | Timeout. Antibiotic complete | | | 2 | | | | | 3 | | | | | 8 | | | +----+---+ + + | | 1 | An | | | | 4 | Emergence | | | | 2 | | | | | 2 | | | +----+---+ + + | | 1 | Extubation | | | | 4 | | | | | 3 | | | | | 5 | | | +----+---+ + + | | 1 | an stop | | | | 4 | data | | | | 3 | | | | | 5 | | | +----+---+ + + | | 1 | An Stop | | | | 4 | | | | | 4 | | | | | 0 | | | +----+---+ + + | | 1 | Block Start | Pre-anesthetic vitals signs reassessed. | | | 4 | | | | | 5 | | | | | 5 | | | +----+---+ + + | | 1 | Block Stop | | | | 4 | | | | | 5 | | | | | 8 | | | +----+---+ + + +------+ | Meds | +------+ + + + | Name | Total | + + + | fentanyl 50 mcg/mL | 300 mcg | + + + | lidocaine 2% | 100 mg | + + + | propofol bolus | 150 mg | + + + | ROCuronium 10 mg/mL | 30 mg | + + + | dexamethasone 4 mg/mL | 8 mg | + + + | ondansetron 2 mg/mL | 4 mg | + + + | ketorolac 30 mg/mL | 15 mg | + + + | ePHEDrine 5 mg/mL | 5 mg | + + + | phenylephrine 100 mcg/mL | 800 mcg | + + + | glycopyrrolate 0.2 mg/ml | 0.4 mg | + + + | neostigmine | 3 mg | + + + | ampicillin-sulbactam (UNASYN) 3 g | 3 g | | in sodium chloride (IV) 0.9 % | | | 100 mL IVPB | | + + + | morphine (PF) injection 1 mg | 10 mg | + + + | ropivacaine 0.5% | 25 mL | + + + | plasmalyte-A | 1,300 mL | + + + + + [...] +--------+ + + + | Wound | 03/31/18; 1412; Amputation; Leg; | 03/31/18 1412 by | | | | Right | Aaliyah Noonan RN | | +--------+ + + + | Wound | 02/22/18; 1318; Yes; Amputation; | 02/22/18 1318 by | 03/31/18 1238 by | | | Foot; Yes; 03/31/18; 1238 | Hannah Boland RN | Lesley R Torricellas, | | | | | RN | +--------+ + + + | Wound | 02/23/18; 2224; Incision; Leg; | 02/23/182224 by | 03/31/18 1236 by | | | Right; 03/31/18; 123 | Jayne Crawford RN | Lesley Byrne, | | | | | RN | +--------+ + + + | Wound | 02/25/18; 2005; Incision; Foot; | 02/25/182005 by | 03/31/18 1236 by | | | Right; 03/31/18; 1236 | Jean-Paul Darby RN | Lesley Byrne, | | | | | RN | +--------+ + + + | Wound | 03/11/18; 1540; Yes; Incision; | 03/11/18 1540 by | 04/01/18 0744 by | | | Leg; Inner; fem pop sutures; Yes; | Jeferson Escobar RN | Verna Benson RN | | | 04/01/18; 0744 | | | +--------+ + + + | Wound | 03/11/18; 1542; Yes; Incision; | 03/11/18 1542 by | 04/01/18 0744 by | | | Foot; Anterior; amputation site; | Jeferson Escobar RN | Verna Benson RN | | | Yes; 04/01/18; 0744 | | | +--------+ + + + | Wound | 03/11/18; 1545; Yes; Pressure | 03/11/18 1545 by | 04/01/18 0745 by | | | Injury; Heel; Left; Unstagable; | Jeferson Escobar RN | Verna Benson RN | | | Yes; 04/01/18; 0745 | | | +--------+ + + + | Periph | Placement Date: 03/30/18; | 03/30/18 170 by | 04/04/18 1430 by | | eral | Placement Time: 1707; Removal | Alda Dias RN | Lokesh Beasley, | | IV | Date: 04/04/18; Removal Time: | | RN | | | 1430; Size (Gauge): 20 G; | | | | | Orientation: Left; Location: | | | | | Forearm; Site Prep: | | | | | Chlorhexidine-Isopropyl Alcohol; | | | | | Insertion Attempts: 1 | | | +--------+ + + + | Wound | 03/30/18; 2022; Amputation; Foot; | 03/30/182022 by | 04/01/18 0740 by | | | Right; Yes; 04/01/18; 739 | Lluvia Chapman RN | Patria Ventura, | | | | | RN | +--------+ + + + | ETT | Placement Date: 03/31/18; | 03/31/18 1220 by | 03/31/18 1435 by | | | Placement Time: 1220; Removal | Na Caro CRNA | Pete Allen CRNA | | | Date: 03/31/18; Removal Time: | | | | | 1435; Mask Airway: Easy; Blade | | | | | Type: MAC; Blade Size: 3; ETT | | | | | Type: Standard ETT; ETT Size | | | | | (Fr): 7.5; Technique: Direct | | | | | Laryngoscope; Grade: I; Insertion | | | | | attempts: 1; Confirmation: | | | | | EtCO2, BBS, Direct visualization; | | | | | Intubation Details: Easy, | | | | | Burkeumatic; Taped at (cm): 21; | | | | | Secured at: Lips | | | +--------+ + + + | Urethr | 03/31/18; 1230; Komal Ngo BUTTONER; | 03/31/18 1230 by | 04/01/18 1412 by | | al | Yes; Latex; 16 Fr. | Peg Rodas RN | Verna Benson RN | | Russ | | | | | er | | | | [...] [place] | | | | | | [address] | | | | | | | | +--------+---------+ + + + as of this encounter Visit Diagnoses Not on filein this encounter Administered Medications + +--------+ +------+-------+------+ | Medication Order | MAR | Action | Dose | Rate | Site | | | Action | Date | | | | + +--------+ +------+-------+------+ | ampicillin-sulbactam (UNASYN) 3 | Given | 03/31/2018 | 3 g | 100 | | | g in sodium chloride (IV) 0.9 % | | 18:43 | | mL/hr | | | 100 mL IVPB 3 g, Intravenous, at | | PDT | | | | | 100 mL/hr, Every 6 Hours, First | | | | | | | dose on [facility] 03/31/18 at 0000, | | | | | | | Indications: Skin and Soft Tissue | | | | | | | Abscess | | | | | | + +--------+ +------+-------+------+ +-------+ +-----+-------+---+ | Given | 04/01/2018 | 3 g | 100 | | | | 00:00 | | mL/hr | | | | PDT | | | | +-------+ +-----+-------+---+ | Given | 04/01/2018 | 3 g | 100 | | | | 05:52 | | mL/hr | | | | PDT | | | | +-------+ +-----+-------+---+ +---+---+ | | | +---+---+ + +-------+ +------+---+---+ | dexamethasone (DECADRON) 4 | Given | 03/31/2018 | 8 mg | | | | MG/ML injection PRN, Starting | | 12:26 | | | | | [facility] 03/31/18 at 1226, Anesthesia | | PDT | | | | | Intra-op | | | | | | + +-------+ +------+---+---+ +---+---+ | | | +---+---+ + +---------+ +---+---+---+ | electrolyte-A (PLASMALYTE-A) | New Bag | 03/31/2018 | | | | | solution Intravenous, Continuous | | 12:05 | | | | | PRN, Starting [facility] 03/31/18 at | | PDT | | | | | 1205, Anesthesia Intra-op | | | | | | + +---------+ +---+---+---+ +---------+ +---+---+---+ | New Bag | 03/31/2018 | | | | | | 13:54 | | | | | | PDT | | | | +---------+ +---+---+---+ +---+---+ | | | +---+---+ + +-------+ +------+---+---+ | ephedrine injection | Given | 03/31/2018 | 5 mg | | | | Intravenous, PRN, Starting [facility] | | 12:38 | | | | | 03/31/18 at 1238, Anesthesia | | PDT | | | | | Intra-op | | | | | | + +-------+ +------+---+---+ +---+---+ | | | +---+---+ + +-------+ +--------+---+---+ | fentaNYL (SUBLIMAZE) injection | Given | 03/31/2018 | 50 mcg | | | | Intravenous, PRN, Starting [facility] | | 14:28 | | | | | 03/31/18 at 1214, Anesthesia | | PDT | | | | | Intra-op | | | | | | + +-------+ +--------+---+---+ +-------+ +--------+---+---+ | Given | 03/31/2018 | 50 mcg | | | | | 14:39 | | | | | | PDT | | | | +-------+ +--------+---+---+ | Given | 03/31/2018 | 50 mcg | | | | | 14:41 | | | | | | PDT | | | | +-------+ +--------+---+---+ +---+---+ | | | +---+---+ + +-------+ +--------+---+---+ | glycopyrrolate (ROBINUL) | Given | 03/31/2018 | 0.4 mg | | | | injection PRN, Starting [facility] | | 13:43 | | | | | 03/31/18 at 1343, Anesthesia | | PDT | | | | | Intra-op | | | | | | + +-------+ +--------+---+---+ +---+---+ | | | +---+---+ + +-------+ +-------+---+---+ | ketorolac (TORADOL) injection | Given | 03/31/2018 | 15 mg | | | | PRN, Starting [facility] 03/31/18 at 1343, | | 13:43 | | | | | Anesthesia Intra-op | | PDT | | | | + +-------+ +-------+---+---+ +---+---+ | | | +---+---+ + +-------+ +--------+---+---+ | lidocaine 2 % (MDV) 2 % | Given | 03/31/2018 | 100 mg | | | | injection Intravenous, PRN, | | 12:17 | | | | | Starting [facility] 03/31/18 at 1217, | | PDT | | | | [...] +------+---+---+ | neostigmine (PROSTIGMINE) | Given | 03/31/2018 | 3 mg | | | | injection PRN, Starting [facility] | | 13:43 | | | | | 03/31/18 at 1343, Anesthesia | | PDT | | | | | Intra-op | | | | | | + +-------+ +------+---+---+ +---+---+ | | | +---+---+ + +-------+ +------+---+---+ | ondansetron (ZOFRAN) injection | Given | 03/31/2018 | 4 mg | | | | PRN, Nausea, Vomiting, Starting | | 13:43 | | | | | [facility] 03/31/18 at 1343, Anesthesia | | PDT | | | | | Intra-op | | | | | | + +-------+ +------+---+---+ +---+---+ | | | +---+---+ + +-------+ +---------+---+---+ | phenylephrine (TIM-SYNEPHRINE) | Given | 03/31/2018 | 100 mcg | | | | 100 MCG/ML injection | | 13:41 | | | | | Intravenous, PRN, Starting [facility] | | PDT | | | | | 03/31/18 at 1225, Anesthesia | | | | | | | Intra-op | | | | | | + +-------+ +---------+---+---+ +-------+ +---------+---+---+ | Given | 03/31/2018 | 100 mcg | | | | | 13:47 | | | | | | PDT | | | | +-------+ +---------+---+---+ | Given | 03/31/2018 | 100 mcg | | | | | 14:09 | | | | | | PDT | | | | +-------+ +---------+---+---+ +---+---+ | | | +---+---+ + +-------+ +--------+---+---+ | propofol (DIPRIVAN) injection | Given | 03/31/2018 | 150 mg | | | | Intravenous, PRN, Starting [facility] | | 12:17 | | | | | 03/31/18 at 1217, Anesthesia | | PDT | | | | | Intra-op | | | | | | + +-------+ +--------+---+---+ +---+---+ | | | +---+---+ + +-------+ +-------+---+---+ | rocuronium (ZEMURON) injection | Given | 03/31/2018 | 30 mg | | | | PRN, Starting [facility] 03/31/18 at | | 12:17 | | | | | 1217, Anesthesia Intra-op | | PDT | | | | + +-------+ +-------+---+---+ +---+---+ | | | +---+---+ + +-------+ +--------+---+---+ | ropivacaine (NAROPIN) 0.5 % | Given | 03/31/2018 | 25 mLs | | | | injection PRN, Starting [facility] | | 14:58 | | | | | 03/31/18 at 1458, Anesthesia | | PDT | | | | | Intra-op | | | | | | + +-------+ +--------+---+---+ +---+---+ | | | +---+---+ in this encounter
--- OUTSIDE RECORDS SUMMARY | ~2018-04-10 | XMS | Encounter Summary ---
Demographics + + + | Address | [address] | | | [place] [address] | + + + | Home Phone | | + + + | Preferred Language | Unknown | + + + | Marital Status | Single | + + + | Faith Affiliation | Unknown | + + + | Race | Unknown | + + + | Ethnic Group | Unknown | + + + Author + + + | Author | [facility] | + + + | Organization | [facility] | + + + | Address | Unknown | + + + | Phone | Unavailable | + + + Support + + +---------+ + | Name | Relationship | Address | Phone | + + +---------+ + | Megan Walker | ECON | Unknown | | + + +---------+ + Care Team Providers + +------+ + | Care Quality Control Systems Manager Name | Role | Phone | + +------+ + | Nicholas Claire MD | PCP | | + +------+ + Encounter Details +--------+ + + + + | Date | Type | Department | Care Team | Description | +--------+ + + + + | 03/11/ | Procedure | [facility] | | | | 2018 | [facility] | [address] | | | | | | Floor [place] | | | | | | [address] | | | | | | [place] [address] | | | | | | [phone] | | | +--------+ + + + [...]
--- OUTSIDE RECORDS SUMMARY | ~2018-04-10 | XMS | Encounter Summary ---
Demographics + + + | Address | [address] | | | [place] [address] | + + + | Home Phone [...] + + + | Author | [facility] | + + + | Organization | [facility] | + + + | Address | Unknown | + + + | Phone | Unavailable | + + + Support + + +---------+ + | Name | Relationship | Address | Phone | + + +---------+ + | Megan Walker | ECON | Unknown | | + + +---------+ + Care Team Providers + +------+ + | Care Supervisor Fiberglass Boat Assembly Name | Role | Phone | + +------+ + | Nicholas Claire MD | PCP | | + +------+ + Encounter Details +--------+ + + + + | Date | Type | Department | Care Team | Description | +--------+ + + + + | 02/22/ | Procedure | [facility] | | | | 2017 | [facility] | [address] | | | | | | Floor [facility] | | | | | | [address] [facility] | | | | | | [place] [address] | | | | | | [phone] | | | +--------+ + + + [...] [place] | | | | | | [address] | | | | | | | | +--------+---------+ + + + as of this encounter Visit Diagnoses Not on filein this encounter"
--- OUTSIDE RECORDS SUMMARY | ~2018-04-10 | XMS | Encounter Summary ---
Demographics + + + | Address | [address] | | | [place] [address] | + + + | Home Phone | | + + + | Preferred Language | Unknown | + + + | Marital Status | Single | + + + | Advent Affiliation | Unknown | + + + | Race | Unknown | + + + | Ethnic Group | Unknown | + + + Author + + + | Author | [facility] | + + + | Organization | [facility] | + + + | Address | Unknown | + + + | Phone | Unavailable | + + + Support + + +---------+ + | Name | Relationship | Address | Phone | + + +---------+ + | Megan Walker | ECON | Unknown | | + + +---------+ + Care Team Providers + +------+ + | Care Metal Door Assembler Name | Role | Phone | + +------+ + | Nicholas Claire MD | PCP | | + +------+ + Encounter Details +--------+ + + + + | Date | Type | Department | Care Team | Description | +--------+ + + + + | 03/31/ | Procedure | [facility] | | | | 2018 | [facility] | | | | | | Operating [address] | | | | | [address] | | | | | | [place] [address] | | | | | | [phone] | | | +--------+ + + + [...]
--- OUTSIDE RECORDS SUMMARY | ~2018-04-10 | XMS | Encounter Summary ---
Demographics + + + | Address | [address] | | | [place] [address] | + + + | Home Phone | | + + + | Preferred Language | Unknown | + + + | Marital Status | Single | + + + | Anglican Affiliation | Unknown | + + + | Race | Unknown | + + + | Ethnic Group | Unknown | + + + Author + + + | Author | [facility] | + + + | Organization | [facility] | + + + | Address | Unknown | + + + | Phone | Unavailable | + + + Support + + +---------+ + | Name | Relationship | Address | Phone | + + +---------+ + | Megan Walker | ECON | Unknown | | + + +---------+ + Care Team Providers + +------+ + | Care Franchise Broker Name | Role | Phone | + [...] | | | | | | | ([facility]) | | | | | | | [place] of | | | | | | | right foot | | | | | | | ([facility]) | | | +--------+--------+ + + + + Encounter Details +--------+ + + + + | Date | Type | Department | Care Team | Description | +--------+ + + + + | 02/25/ | Anesthesia | [facility] | Pete Allen, | | | 2018 | [facility] | [facility] [address] | | | | | Operating Room [address] | [place] [address] | | | | | [facility] | [phone] | | | | | [place] [address] | | | | | | [phone] | | | +--------+ + + + [...] [place] | | | | | | [address] | | | | | | | [...]
--- OUTSIDE RECORDS SUMMARY | ~2018-04-10 | XMS | Encounter Summary ---
Demographics + + + | Address | [address] | | | [place] [address] | + + + | Home Phone [...] + + + | Author | [facility]ie [employer] | + + + | Organization | [facility] [employer] | + + + | Address | Unknown | + + + | Phone | Unavailable | + + + Support + + +---------+ + | Name | Relationship | Address | Phone | + + +---------+ + | Megan Walker | ECON | Unknown | | + + +---------+ + Care Team Providers + +------+ + | Care Promotional Demonstrator Name | Role | Phone | + [...] Description | +--------+---------+ + + + | 02/25/ | Surgery | [facility] | Amilcar Garcia DPM | FOREFOOT - | | 2017 | | [facility] | [address] | AMPUTATION | | | | Operating Room [address] | [address], | | | | [address] | [place] [address] | | | | | [place] [address] | [phone] | | | | | [phone] | | | +--------+---------+ + + + [...] note may be different from the original. [facility] Service: Hospitalist Physician Discharge Summary Patient ID: Hector Walker 1960 57 y.o. Admit date: 02/21/2018 [...] seen by our vascular surgery here at [facility] and by podiatry. Two days ago, there were concerns of an infected ulcer on the second toe, right foot, in the distal phalanx, for which he underwent surgical intervention and subsequent am putation on 02/19, two days ago. The patient refers that there were no surgical complicati ons, and when he went today for a followup with his freelance graphic designer, when they took off the browning ges [...] l toes. Patient underwent R. Popliteal to DIRECTOR OF RECRUITING bypass and reversed OSV by Dr. Mueller, vascular surgery. Then underwent transmetatarsal amputation o 6/29/18 He was initiated on IV Zosyn and [...] - TIBIAL; Surgeon: Johan Mueller MD; Location: [facility] OR; Service: Vascular; Laterality: Right; right popliteal to posterior tibial artery by pass with vein harvest FOOT AMPUTATION Right 02/25/2018 Procedure: FOREFOOT - AMPUTATION; Surgeon: Amilcar Garcia DPM; Location: [facility]; ervice: Podiatry; Laterality: Right; Right foot [...] Right Result Date: 02/22/2018 1. The proximal DIRECTOR OF RECRUITING appears occluded with distal reconstitution via collaterals. [...] Right forearm Pulse: 102 101 103 Resp: Temp: 97.7 F (36.5 C) 98.4 F [...] Motor grossly intact. LABS: Recent Labs Lab 02/28/1851002/27/1845202/26/18 0454 WBC 7.54 9.41 11.23* RBC 3.66* 3.53* 3.84* HGB 11.2* 11.0* 12.0* HCT 32.3* 31.4* 34.4* MCV 88.3 89.1 89.6 MCH 30.5 31.2 31.1 MCHC 34.6 35.1 34.7 RDW 40.7 40.7 41.1 PLT 321 288 269 MPV 7.6 7.6 7.8 DIFFTYPE AUTOMATED AUTOMATED MANUAL Recent Labs Lab 02/28/1811 02/27/183 02/26/18 0454 02/22/18 0330 02/21/18 2100 NA [...] up: Johan Mueller MD [address] [facility] [phone] Schedule an appointment as soon as possible for a visit in 2 weeks For wound re-check Nicholas Claire MD 2010 [address] [facility] [phone] In 3 days Medication List START [...] Your Medications These medications were sent to [facility] [address] [place] [id number] [place] [address] [place] [id number] acetaminophen 325 MG tablet amoxicillin-clavulanate 875-125 MG [...] may be different from t long original. [facility] Service: Vascular Surgery Progress Note Hospital Day: 7 ASSESSMENT & PLAN: 57 yo male patient s/p R popliteal to DIRECTOR OF RECRUITING bypass with reversed GSV. - Continue ASA/Plavix. [...] lower limb ischemia PVD (peripheral vascular disease) ([facility]) Essential hypertension DM (diabetes mellitus) ([facility]) Code Status: Full Code Juany Padilla MD 10:03 AM Juany Padilla MD - 02/28/2018 7:22 AM PDTFormatting of this note may be different from t long original. [facility] Service: Vascular Surgery Progress Note Hospital Day: 6 ASSESSMENT & PLAN: 57 yo male patient s/p R popliteal to DIRECTOR OF RECRUITING bypass with reversed GSV. - Continue ASA/Plavix. [...] lower limb ischemia PVD (peripheral vascular disease) ([facility]) Essential hypertension DM (diabetes mellitus) ([facility]) Code Status: Full Code Juany Padilla MD 7:22 AM Juany Padilla MD - 02/27/2018 7:58 AM PDTFormatting of this note may be different from t long original. [facility] Service: Vascular Surgery Progress Note Hospital Day: 5 ASSESSMENT & PLAN: 57 yo male patient s/p R popliteal to DIRECTOR OF RECRUITING bypass with reversed GSV. - Continue ASA/Plavix. [...] lower limb ischemia PVD (peripheral vascular disease) ([facility]) Essential hypertension DM (diabetes mellitus) ([facility]) Code Status: Full Code Juany Padilla MD 7:58 AM Jojo Dudley MD - 02/27/2018 5:15 AM PDTFormatting of this note may be different from the original. [facility] Service: Hospitalist Progress Note Hospital Day: LOS: 5 days SUBJECTIVE Patient Summary: [facility] Pe[facility] 02/21/18 The patient is [...] seen by our vascular surgery here at [facility] and by podiatry. Two days ago, there were concerns of an infected ulcer on the second toe, right foot, in the distal phalanx, for which he underwent surgical intervention and subsequent amp utation on 02/19, two days ago. The patient refers that there were no surgical complication s, and when he went today for a followup with his freelance graphic designer, when they took off the bandage s [...] Recent Labs Lab 02/26/18 0454 02/25/18 0835 02/23/18 2055 02/23/18 1609 WBC 11.23* 12.16* -- 10.11 [...] Foot ulcer with necrosis of bone, right ([facility]) PVD (peripheral vascular disease) ([facility]) Essential hypertension DM (diabetes mellitus) ([facility]) ASSESSMENT & PLAN -Right foot erythema. With gangrene and PVD disease With signs of necrosis on the distal toes and surrounding cellulitis. Status post recent se cond toe amputation. -Peripheral vascular disease with Critical limb ischemia, subacute per history appreciate v ascular surgeon, Dr. Poi. Plan for diagnostic angiogram with possible endovascular interven tions (including balloon angioplasty, stent placement, or atherectomy) of right lower extrem ity arterial stenosis on 02/23/18. POD#4 U/S shows 1. The proximal DIRECTOR OF RECRUITING appears occluded with distal reconstitution via collaterals. [...] may be different from t long original. [facility] Service: Vascular Surgery Progress Note Hospital Day: 4 ASSESSMENT & PLAN: 57 yo male patient s/p R popliteal to DIRECTOR OF RECRUITING bypass with reversed GSV. - Continue ASA/Plavix. [...] may be different from t long original. [facility] Service: Podiatry Progress Note Hospital Day: LOS: [...] C) (02/26 110) BP: (132-200)/(63-95) 159/80 (02/26 110) Heart Rate: [84-138] 103 (02/26 1105) Resp: [...] bone, right (HCC) PVD (peripheral vascular disease) ([facility]) Essential hypertension DM (diabetes mellitus) ([facility]) ASSESSMENT & PLAN Gangrene Peripheral arterial disease [...] may be differ ent from the original. [facility] Service: Hospitalist Progress Note Hospital Day: LOS: 4 days SUBJECTIVE Patient Summary: [facility] 02/21/18 The patient is [...] seen by our vascular surgery here at [facility] and by podiatry. Two days ago, there were concerns of an infected ulcer on the second toe, right foot, in the distal phalanx, for which he underwent surgical intervention and subsequent amp utation on 02/19, two days ago. The patient refers that there were no surgical complication s, and when he went today for a followup with his freelance graphic designer, when they took off the bandage s [...] - - 101 - 96 % - 02/25/185 139/70 - - 107 - 97 % - 02/25/187 141/74 98.2 F (36.8 C) Oral 109 [...] Recent Labs Lab 02/26/18 0454 02/25/18 0835 02/23/18205402/23/18 1609 WBC 11.23* 12.16* -- [...] Labs Lab 02/26/18 0454 02/25/18 0835 02/24/18 04102/22/18 0330 02/21/18 2100 NA 141 139 139 [...] Foot ulcer with necrosis of bone, right ([facility]) PVD (peripheral vascular disease) ([facility]) Essential hypertension DM (diabetes mellitus) ([facility]) ASSESSMENT & PLAN -Right foot erythema. With [...] 02/23/18. POD#3 U/S shows 1. The proximal DIRECTOR OF RECRUITING appears occluded with distal reconstitution via collaterals. [...] Dudley MD 02/26/2018 11:01 AM Joey Purcell [facility] - 02/25/2018 9:51 PM PDTNote ccl 111.5ml/min meds reviewed pharma cy [facility] 2151MoPuja lopez [facility] - 02/25/2018 11:43 AM PDTClinical Pharmacy [...] note may be different from the original. [facility] Service: Hospitalist Progress Note Hospital Day: LOS: 3 days SUBJECTIVE [facility] Summary: [facility] 02/21/18 The patient is [...] seen by our vascular surgery here at [facility] and by podiatry. Two days ago, there were concerns of an infected ulcer on the second toe, right foot, in the distal phalanx, for which he underwent surgical intervention and subsequent amp utation on 02/19, two days ago. The patient refers that there were no surgical complication s, and when he went today for a followup with his freelance graphic designer, when they took off the bandage s [...] sodium chloride (IV) 110 mL/hr at 02/24/18 4605 PRN Medications acetaminophen OR acetaminophen, dextrose, dextrose, [...] Foot ulcer with necrosis of bone, right ([facility]) PVD (peripheral vascular disease) ([facility]) Essential hypertension DM (diabetes mellitus) ([facility]) ASSESSMENT & PLAN -Right foot erythema. With [...] 02/23/18. POD#2 U/S shows 1. The proximal DIRECTOR OF RECRUITING appears occluded with distal reconstitution via collaterals. [...] note may be different from the original. [facility] Service: Vascular Surgery Progress Note Hospital [...] bone, right (HCC) PVD (peripheral vascular disease) ([facility]) Essential hypertension DM (diabetes mellitus) ([facility]) ASSESSMENT & PLAN PLAN PER DR MUELLER-The [...] note may be different from the original. [facility] Service: Vascular Surgery Progress Note Hospital [...] well perfused. He was ev aluated by freelance graphic designer, Dr. Garcia who will proceed with transmetatarsal [...] Foot ulcer with necrosis of bone, right ([facility]) PVD (peripheral vascular disease) ([facility]) Essential hypertension DM (diabetes mellitus) ([facility]) ASSESSMENT & PLAN Critical limb ischemia with [...] can be removed at [facility] if patient is discharged. Physical therapy and weight bearing status per Podiatry recom mendation. The patient will most likely be non weight bearing on his right foot until TMA co mpletely heals up. Encourage incentive spirometry breathing exercise. Continue pain manageme nt. Disposition: Continue medical management Code Status: Full Code Johan Mueller MD 02/25/2018Mojohn Puja Shaikh [facility] - 02/24/2018 12:13 PM PDTClinical Pharmacy Note: Vancomycin Da y 4 Goal Trough: 10-20 mcg/mL Current dose: 1500 mg IV Q12H Last trough: 16.6 mcg/mL 02/23 @ 0821 Serum creatinine: 0.7 mg/dL 02/24/18 0418 Estimated creatinine clearance: 123.3 mL/min. Plan: Continue same dose. Next trough level 02/25 @ 0830. Puja Aquino, Pharm.D. Amilcar Garcia, [place] - 02/24/2018 7:08 AM PDTFormatting of this note may be different from t long original. [facility] Service: Podiatry Progress Note Hospital Day: LOS: [...] Foot ulcer with necrosis of bone, right ([facility]) PVD (peripheral vascular disease) ([facility]) Essential hypertension DM (diabetes mellitus) ([facility]) ASSESSMENT & PLAN Gangrene Peripheral arterial disease [...] may be differ ent from the original. [facility] Service: Hospitalist Progress Note Hospital Day: LOS: 2 days SUBJECTIVE Patient Summary: From [facility] Dr. [...] seen by our vascular surgery here at [facility] and by podiatry. Two days ago, there were concerns of an infected ulcer on the second toe, right foot, in the distal phalanx, for which he underwent surgical intervention and subsequent amp utation on 02/19, two days ago. The patient refers that there were no surgical complication s, and when he went today for a followup with his freelance graphic designer, when they took off the bandage s [...] Foot ulcer with necrosis of bone, right ([facility]) PVD (peripheral vascular disease) ([facility]) Essential hypertension DM (diabetes mellitus) ([facility]) ASSESSMENT & PLAN -Right foot erythema. With [...] 02/23/18. POD#1 U/S shows 1. The proximal DIRECTOR OF RECRUITING appears occluded with distal reconstitution via collaterals. [...] note may be different from the original. [facility] Service: Hospitalist Progress Note Hospital Day: LOS: 1 day SUBJECTIVE Patient Summary: [facility] 02/21/18 The patient is [...] seen by our vascular surgery here at [facility] and by podiatry. Two days ago, there were concerns of an infected ulcer on the second toe, right foot, in the distal phalanx, for which he underwent surgical intervention and subsequent amp utation on 02/19, two days ago. The patient refers that there were no surgical complication s, and when he went today for a followup with his freelance graphic designer, when they took off the bandage s [...] - - 107 16 100 % - 02/22/181954 - - - 105 18 100 % - 02/22/18 1950 135/74 - - 104 17 100 % - 02/22/18 194 143/75 - - 105 18 100 % - 02/22/18 1940 151/81 - - 109 16 100 % - 02/22/18 193 135/75 - - 107 16 100 % [...] Foot ulcer with necrosis of bone, right ([facility]) PVD (peripheral vascular disease) ([facility]) Essential hypertension DM (diabetes mellitus) ([facility]) ASSESSMENT & PLAN -Right foot erythema. With [...] on 02/22-. U/S shows 1. The proximal DIRECTOR OF RECRUITING appears occluded with distal reconstitution via collaterals. [...] note may be different from the original. [facility] Service: Hospitalist Progress Note Hospital Day: LOS: 0 days SUBJECTIVE Patient Summary: [facility] 02/21/18 The patient is [...] seen by our vascular surgery here at [facility] and by podiatry. Two days ago, there were concerns of an infected ulcer on the second toe, right foot, in the distal phalanx, for which he underwent surgical intervention and subsequent amp utation on 02/19, two days ago. The patient refers that there were no surgical complication s, and when he went today for a followup with his freelance graphic designer, when they took off the bandage s [...] - - - 94 % - - 02/21/187 122/65 - - - - 98 % [...] Foot ulcer with necrosis of bone, right ([facility]) PVD (peripheral vascular disease) ([facility]) Essential hypertension DM (diabetes mellitus) ([facility]) ASSESSMENT & PLAN -Right foot erythema. With [...] vascular interventions. U/S shows 1. The proximal DIRECTOR OF RECRUITING appears occluded with distal reconstitution via collaterals. [...] [place] | | | | | | [id number] | | | | | | | [...] | + +--------+ + + + | FOREFOOT - | | 02/25/2018 | gangrene | | | AMPUTATION | | 6:54 PM | | | | | | [...] | + +--------+ + + + | [facility] | STAT | 02/21/2018 | | Results for this | | ACID | | 9:00 PM | | procedure are in the | | | | PDT | | results section. | + +--------+ + + + | [facility]ARD PANEL W/O | STAT | 02/21/2018 [...] Testing | 65 - 99 mg/dL | [facility] | | | performed at [facility];[address] | | | | | [address];[place] | | | | | [address] | | | + + + + + + + + + + | Performing | Address | City/State/Zipcode | Phone Number | | Organization | | | | + + + + + | [facility] | [address] | [place] [address] | | + + + + + POCT glucose (03/01/2018 5:26 AM) + + + + + | Component | Value | Ref Range | Performed At | + + + + + | GLUCOSE,POC SCREEN | 147 (H)Comment: Testing | 65 - 99 mg/dL | [facility] | | | performed at [facility];[address] | | | | | [facility], [place] | | | | | [address] | | | + + + + + + + + + + | Performing | Address | City/State/Zipcode | Phone Number | | Organization | | | | + + + + + | [facility] | [address] | [place] [address] | | + + + + + [...] | [facility] | | | performed at [facility], [address] | | LABORATORY | | | [address], | | | | | [place] [address] | | | + + + + + + + | Specimen | + + | Blood | + + + + + + + | Performing | Address | City/State/Zipcode | Phone Number | | Organization | | | | + + + + + | [facility] | [address] | [place] [address] | [phone] | | LABORATORY | [address] | | [...] 8.8 | 8.5 - 10.5 mg/dL | [facility] | | | | | LABORATORY | + + + + + | EGFR | >60Comment: GFR <60: | >60 mL/min/1.73m2 | [facility] | | | CHRONIC KIDNEY DISEASE, [...] | | | | | performed at [facility], [address] | | | | | [facility], | | | | | [place] [address] | | | + + + + + + + | Specimen | + + | Blood | + + + + + + + | Performing | Address | City/State/Zipcode | Phone Number | | Organization | | | | + + + + + | [facility] | [address] | [place] [address] | [phone] | | LABORATORY | [address] | | | + + + + + POCT glucose (02/28/2018 9:04 PM) + + + + + | Component | Value | Ref Range | Performed At | + + + + + | GLUCOSE,POC SCREEN | 253 (H)Comment: Testing | 65 - 99 mg/dL | [facility] | | | performed at [facility];[address] | | | | | [address];[place], [place] | | | | | [address] | | | + + + + + + + + + + | Performing | Address | City/State/Zipcode | Phone Number | | Organization | | | | + + + + + | [facility] | [address] | [facility] [address] | | + + + + + POCT glucose (02/28/2018 5:08 PM) + + + + + | Component | Value | Ref Range | Performed At | + + + + + | GLUCOSE,POC SCREEN | 223 (H)Comment: Testing | 65 - 99 mg/dL | [facility] | | | performed at [facility];[address] | | | | [address];[place] | | | | | [address] | | | + + + + + + + + + + | Performing | Address | City/State/Zipcode | Phone Number | | Organization | | | | + + + + + | [facility] | [address] | [place] [address] | | + + + + + POCT glucose (02/28/2018 12:01 PM) + + + + + | Component | Value | Ref Range | Performed At | + + + + + | GLUCOSE,POC SCREEN | 186 (H)Comment: Testing | 65 - 99 mg/dL | [facility] | | | performed at [facility];[address] | | | | | [address];[place] | | | | | [address] | | | + + + + + + + + + + | Performing | Address | City/State/Zipcode | Phone Number | | Organization | | | | + + + + + | [facility] | [address] | [place] [address] | | + + + + + [...] | [facility] | | | performed at [facility], [address] | | LABORATORY | | | [address], | | | | | [place] [address] | | | + + + + + + + | Specimen | + + | Blood | + + + + + + + | Performing | Address | City/State/Zipcode | Phone Number | | Organization | | | | + + + + + | [facility] | [address] | [place] [address] | [phone] | | LABORATORY | [address] | | [...] | | | | | performed at [facility], [address] | | | | | [facility], | | | | | [place] [address] | | | + + + + + + + | Specimen | + + | Blood | + + + + + + + | Performing | Address | City/State/Zipcode | Phone Number | | Organization | | | | + + + + + | [facility] | [address] | [place] [address] | [phone] | | LABORATORY | [address] | | | + + + + + POCT glucose (02/28/2018 5:05 AM) + + + + + | Component | Value | Ref Range | Performed At | + + + + + | GLUCOSE,POC SCREEN | 178 (H)Comment: Testing | 65 - 99 mg/dL | [facility] | | | performed at [facility];[address] | | | | | [address];[place] | | | | | [address] | | | + + + + + + + + + + | Performing | Address | City/State/Zipcode | Phone Number | | Organization | | | | + + + + + | [facility] | [address] | [place] [address] | | + + + + + Pathology histology - tissue (02/28/2018) + + | Specimen | + + | Tissue | + + + + + | Narrative | Performed At | + + + | SPECIMEN(S): A Rt. TRANSMETATARSAL AMPUTATION SPECIMEN SOURCE: | [facility] | | [place]. Rt. TRANSMETATARSAL AMPUTATION CLINICAL HISTORY: 02/25/2018 at [...] | bone has a deep red discoloration. [employer] sections are | | | submitted in [...] | | | preparation was performed by [employer], [facility] | | | [address] [address] (Medical | | | Director: Ha Couch M.D.; [facility]#: [id number]). | | | Diagnostician: Ha Couch MD Pathologist Electronically | | | Signed 03/01/2018 | | + + + + +---------+ + + | Performing | Address | City/State/Zipcode | Phone Number | | Organization | | | | + +---------+ + + | [facility] | | | | + +---------+ + + POCT glucose (02/27/2018 8:29 PM) + + + + + | Component | Value | Ref Range | Performed At | + + + + + | GLUCOSE,POC SCREEN | 262 (H)Comment: Testing | 65 - 99 mg/dL | [facility] | | | performed at [facility];[address] | | | | | [facility];[place], [place] | | | | | [address] | | | + + + + + + + + + + | Performing | Address | City/State/Zipcode | Phone Number | | Organization | | | | + + + + + | [facility] | [address] | [place] [address] | | + + + + + POCT glucose (02/27/2018 4:19 PM) + + + + + | Component | Value | Ref Range | Performed At | + + + + + | GLUCOSE,POC SCREEN | 189 (H)Comment: Testing | 65 - 99 mg/dL | [facility] | | | performed at [facility];[address] | | | | [address];[place] | | | | | [address] | | | + + + + + + + + + + | Performing | Address | City/State/Zipcode | Phone Number | | Organization | | | | + + + + + | [facility] | [address] | [place] [address] | | + + + + + POCT glucose (02/27/2018 11:02 AM) + + + + + | Component | Value | Ref Range | Performed At | + + + + + | GLUCOSE,POC SCREEN | 200 (H)Comment: Testing | 65 - 99 mg/dL | [facility] | | | performed at [facility];[address] | | | | | [address];[place], [place] | | | | | [address] | | | + + + + + + + + + + | Performing | Address | City/State/Zipcode | Phone Number | | Organization | | | | + + + + + | [facility] | [address] | [facility] [place] [address] | | + + + + + POCT glucose (02/27/2018 5:17 AM) + + + + + | Component | Value | Ref Range | Performed At | + + + + + | GLUCOSE,POC SCREEN | 159 (H)Comment: Testing | 65 - 99 mg/dL | [facility] | | | performed at [facility];[address] | | | | | [address];[place] | | | | | [address] | | | + + + + + + + + + + | Performing | Address | City/State/Zipcode | Phone Number | | Organization | | | | + + + + + | [facility] | [address] | [place] [address] | | + + + + + [...] | [facility] | | | performed at [facility], [address] | | LABORATORY | | | [address], | | | | | [place] [address] | | | + + + + + + + | Specimen | + + | Blood | + + + + + + + | Performing | Address | City/State/Zipcode | Phone Number | | Organization | | | | + + + + + | [facility] | [address] | [place] [address] | [phone] | | LABORATORY | [address] | | [...] (L) | 8.5 - 10.5 mg/dL | [facility] | | | | | LABORATORY | + + + + + | EGFR | >60Comment: GFR <60: | >60 mL/min/1.73m2 | [facility] | | | CHRONIC KIDNEY DISEASE, | [...] the | | | | | MDRD IDAK traceable | | | | | equation.Testing | | | | | performed at [facility], [address] | | | | | [facility], | | | | | [place] [address] | | | + + + + + + + | Specimen | + + | Blood | + + + + + + + | Performing | Address | City/State/Zipcode | Phone Number | | Organization | | | | + + + + + | [facility] | [address] | [place] [address] | [phone] | | LABORATORY | [address]vd[address] | | | + + + + + POCT glucose (02/26/2018 9:06 PM) + + + + + | Component | Value | Ref Range | Performed At | + + + + + | GLUCOSE,POC SCREEN | 213 (H)Comment: Testing | 65 - 99 mg/dL | [facility] | | | performed at [facility] | | | | | [address];[place] | | | | | [address] | | | + + + + + + + + + + | Performing | Address | City/State/Zipcode | Phone Number | | Organization | | | | + + + + + | [facility] | [address] | [place] [address] | | + + + + + POCT glucose (02/26/2018 5:00 PM) + + + + + | Component | Value | Ref Range | Performed At | + + + + + | GLUCOSE,POC SCREEN | 229 (H)Comment: Testing | 65 - 99 mg/dL | [facility] | | | performed at [facility];[address] | | | | | [address];[place] | | | | | [address] | | | + + + + + + + + + + | Performing | Address | City/State/Zipcode | Phone Number | | Organization | | | | + + + + + | [facility] | [address] | [place] [address] | | + + + + + POCT glucose (02/26/2018 11:04 AM) + + + + + | Component | Value | Ref Range | Performed At | + + + + + | GLUCOSE,POC SCREEN | 292 (H)Comment: Testing | 65 - 99 mg/dL | [facility] | | | performed at [facility];[address] | | | | | [address];[place] | | | | | [address] | | | + + + + + + + + + + | Performing | Address | City/State/Zipcode | Phone Number | | Organization | | | | + + + + + | [facility] | [address] | [place] [address] | | + + + + + POCT glucose (02/26/2018 5:18 AM) + + + + + | Component | Value | Ref Range | Performed At | + + + + + | GLUCOSE,POC SCREEN | 216 (H)Comment: Testing | 65 - 99 mg/dL | [facility] | | | performed at [facility];[address] | | | | | [address];[place] | | | | | [address] | | | + + + + + + + + + + | Performing | Address | City/State/Zipcode | Phone Number | | Organization | | | | + + + + + | [facility] | [address] | [place] [address] | | + + + + + [...] performed at | | | | | [facility], [address] [place] [address] | | | | | [place] | | | | | [address] | | | + + + + + + + | Specimen | + + | Blood | + + + + + + + | Performing | Address | City/State/Zipcode | Phone Number | | Organization | | | | + + + + + | [facility] | [address] | [place] [address] | [phone] | | LABORATORY | Blvd. | | [...] 0.9 | 0.70 - 1.30 mg/dL | [facility] | | | | | LABORATORY | + + + + + | BUN/CREAT | 18 | | [facility] | | | | | LABORATORY | + + + + + | CALCIUM | 8.7 | 8.5 - 10.5 mg/dL | [facility] | | | | | LABORATORY | + + + + + | EGFR | >60Comment: GFR <60: | >60 mL/min/1.73m2 | [facility] | | | CHRONIC KIDNEY DISEASE, | [...] | | | | | performed at [facility], [address] | | | | | [facility], | | | | | [place] [address] | | | + + + + + + + | Specimen | + + | Blood | + + + + + + + | Performing | Address | City/State/Zipcode | Phone Number | | Organization | | | | + + + + + | [facility] | [address] | [place] [address] | [phone] | | LABORATORY | [place] | | | + + + + + POCT glucose (02/25/2018 9:46 PM) + + + + + | Component | Value | Ref Range | Performed At | + + + + + | GLUCOSE,POC SCREEN | 190 (H)Comment: Testing | 65 - 99 mg/dL | [facility] | | | performed at [facility];[address] | | | | | [address];[place] | | | | | [address] | | | + + + + + + + + + + | Performing | Address | City/State/Zipcode | Phone Number | | Organization | | | | + + + + + | [facility] | [address] | [place] [address] | | + + + + + POCT glucose (02/25/2018 8:24 PM) + + + + + | Component | Value | Ref Range | Performed At | + + + + + | GLUCOSE,POC SCREEN | 207 (H)Comment: Testing | 65 - 99 mg/dL | [facility] | | | performed at [facility];[address] | | | | | [address];[place], [place] | | | | | [address] | | | + + + + + + + + + + | Performing | Address | City/State/Zipcode | Phone Number | | Organization | | | | + + + + + | [facility] | [address] | [place] [address] | | + + + + + POCT glucose (02/25/2018 5:22 PM) + + + + + | Component | Value | Ref Range | Performed At | + + + + + | GLUCOSE,POC SCREEN | 195 (H)Comment: Testing | 65 - 99 mg/dL | [facility] | | | performed at [facility];[address] | | | | | [address];[place] | | | | | [address] | | | + + + + + + + + + + | Performing | Address | City/State/Zipcode | Phone Number | | Organization | | | | + + + + + | [facility] | [address] | [place] [address] | | + + + + + POCT glucose (02/25/2018 4:55 PM) + + + + + | Component | Value | Ref Range | Performed At | + + + + + | GLUCOSE,POC SCREEN | 176 (H)Comment: Testing | 65 - 99 mg/dL | [facility] | | | performed at [facility];[address] | | | | | [address];[place] | | | | | [address] | | | + + + + + + + + + + | Performing | Address | City/State/Zipcode | Phone Number | | Organization | | | | + + + + + | [facility] | [address] | [place] [address] | | + + + + + POCT glucose (02/25/2018 11:27 AM) + + + + + | Component | Value | Ref Range | Performed At | + + + + + | GLUCOSE,POC SCREEN | 203 (H)Comment: Testing | 65 - 99 mg/dL | [facility] | | | performed at [facility];[address] | | | | | [address];[place] | | | | | [address] | | | + + + + + + + + + + | Performing | Address | City/State/Zipcode | Phone Number | | Organization | | | | + + + + + | [facility] | [address] | [place] [address] | | + + + + + Vancomycin, trough (02/25/2018 8:35 AM) + + + + + | Component | Value | Ref Range | Performed At | + + + + + | VANCOMYCIN,TROUGH | 18.6Comment: 15 to 20 | 10 - 20 ug/mL | [facility] | | | ug/mL for meningitis, | | | | | osteomyelitis, | | | | | endocarditis, sepsis, or | | | | | healthcare associated | | | | | pneumonia, or an MODESTA | | | | | equal to or greater than | | | | | 1.0 ug/mLTesting | | | | | performed at [facility] | | | | | [address];[place], [place] | | | | | [address] | | | + + + + + + + + + + | Performing | Address | City/State/Zipcode | Phone Number | | Organization | | | | + + + + + | [facility] | [address] | [place] [address] | | + + + + + CBC w/auto diff (reflex to manual) (02/25/2018 8:35 AM) + + + + + | Component | Value | Ref Range | Performed At | + + + + + | WBC | 12.16 (H) | 3.80 - 11.00 K/uL | [facility] | + + + + + | RBC | 3.78 (L) | 4.20 - 5.70 M/uL | [facility] | + + + + + | HGB | 11.6 (L) | 13.2 - 17.0 g/dL | [facility] | + + + + + | HCT | 33.6 (L) | 39.0 - 50.0 % | [facility] | + + + + + | MCV | 88.8 | 80.0 - 100.0 fl | [facility] | + + + + + | MCH | 30.6 | 27.0 - 34.0 pg | [facility] | + + + + + | MCHC | 34.4 | 32.0 - 35.5 g/dL | [facility] | + + + + + | RDW SD | 40.7 | 37 - 53 fl | [facility] | + + + + + | PLT | 274 | 150 - 400 K/uL | [facility] | + + + + + | MPV | 7.2 | fl | [facility] | + + + + + | DIFF TYPE | AUTOMATED | | [facility] | + + + + + [...] (H) | 1.90 - 7.40 K/uL | [facility] | + + + + + | LYMPHOCYTES ABS | 0.68 (L) | 1.00 - 3.90 K/uL | [facility] | + + + + + | MONOCYTES ABS | 0.64 | 0.00 - 0.80 K/uL | [facility] | + + + + + | EOSINOPHILS ABS | 0.03 | 0.00 - 0.50 K/uL | [facility] | + + + + + | BASOPHILS ABS | 0.04 | 0.00 - 0.10 K/uL | [facility] | + + + + + | MORPHOLOGY | RBC AND PLT MORPHOLOGY | | [facility] | | | APPEAR NORMAL | | | + + + + + | Diff Comment | SLIDE SCANNED, AGREES | | [facility] | | | WITH AUTOMATED | | | | | RESULTS.Comment: Testing | | | | | performed at [facility] | | | | | [address];[place], [place] | | | | | [address] | | | + + + + + + + | Specimen | + + | Blood | + + + + + + + | Performing | Address | City/State/Zipcode | Phone Number | | Organization | | | | + + + + + | [facility] | [address] | [place] [address] | | + + + + + Basic metabolic panel (02/25/2018 8:35 AM) + + + + + | Component | Value | Ref Range | Performed At | + + + + + | SODIUM | 139 | 135 - 145 mmol/L | [facility] | + + + + + | POTASSIUM | 3.8 | 3.5 - 4.9 mmol/L | [facility] | + + + + + | CHLORIDE | 108 | 99 - 109 mmol/L | [facility] | + + + + + | CO2 | 25 | 23 - 32 mmol/L | [facility] | + + + + + | ANION GAP AGAP | 10 | 5 - 20 mmol/L | [facility] | + + + + + | GLUCOSE | 172 (H) | 65 - 99 mg/dL | [facility] | + + + + + | BUN | 12 | 8 - 25 mg/dL | [facility] | + + + + + | CREATININE | 0.81 | 0.70 - 1.30 mg/dL | [facility] | + + + + + | BUN/CREAT | 15 | | [facility] | + + + + + | CALCIUM | 7.9 (L) | 8.5 - 10.5 mg/dL | [facility] | + + + + + | EGFR | >60Comment: GFR <60: | >60 mL/min/1.73m2 | [facility] | | | CHRONIC KIDNEY [...] | | | | | performed at [facility];[address] | | | | | [facility];[place], [place] | | | | | [address] | | | + + + + + + + | Specimen | + + | Blood | + + + + + + + | Performing | Address | City/State/Zipcode | Phone Number | | Organization | | | | + + + + + | [facility] | [address] | [place] [address] | | + + + + + POCT glucose (02/25/2018 5:24 AM) + + + + + | Component | Value | Ref Range | Performed At | + + + + + | GLUCOSE,POC SCREEN | 167 (H)Comment: Testing | 65 - 99 mg/dL | [facility] | | | performed at [facility];[address] | | | | | [address];[place] | | | | | [address] | | | + + + + + + + + + + | Performing | Address | City/State/Zipcode | Phone Number | | Organization | | | | + + + + + | [facility] | [address] | [place] [address] | | + + + + + POCT glucose (02/24/2018 9:01 PM) + + + + + | Component | Value | Ref Range | Performed At | + + + + + | GLUCOSE,POC SCREEN | 240 (H)Comment: Testing | 65 - 99 mg/dL | [facility] | | | performed at [facility];[address] | | | | | [address];[place] | | | | | [address] | | | + + + + + + + + + + | Performing | Address | City/State/Zipcode | Phone Number | | Organization | | | | + + + + + | [facility] | [address] | [place] [address] | | + + + + + POCT glucose (02/24/2018 4:09 PM) + + + + + | Component | Value | Ref Range | Performed At | + + + + + | GLUCOSE,POC SCREEN | 214 (H)Comment: Testing | 65 - 99 mg/dL | [facility] | | | performed at [facility];[address] | | | | | [address];[place], [place] | | | | | [address] | | | + + + + + + + + + + | Performing | Address | City/State/Zipcode | Phone Number | | Organization | | | | + + + + + | [facility] | [address] | [place] [address] | | + + + + + [...] Performed At | + + + | HECTOR WALKER TRANS OXY TENSION MEASUREMENT/ LASER DOPPLER [...] Results In - 02/24/2018 1:17 PM PDT [facility]ECT[facility] QUEZADA TRANS OXY TENSION | | MEASUREMENT/ [...] | + + + + + | [facility] | [address] [facility] | [place] [address] | | + + + + + POCT glucose (02/24/2018 11:20 AM) + + + + + | Component | Value | Ref Range | Performed At | + + + + + | GLUCOSE,POC SCREEN | 153 (H)Comment: Testing | 65 - 99 mg/dL | [facility] | | | performed at [facility];[address] | | | | | [address];[place] | | | | | [address] | | | + + + + + + + + + + | Performing | Address | City/State/Zipcode | Phone Number | | Organization | | | | + + + + + | [facility] | [address] | [place] [address] | | + + + + + POCT glucose (02/24/2018 5:43 AM) + + + + + | Component | Value | Ref Range | Performed At | + + + + + | GLUCOSE,POC SCREEN | 119 (H)Comment: Testing | 65 - 99 mg/dL | [facility] | | | performed at [facility];[address] | | | | | [address];[place] | | | | | [address] | | | + + + + + + + + + + | Performing | Address | City/State/Zipcode | Phone Number | | Organization | | | | + + + + + | [facility] | [address] | [facility] [place] [address] | | + + + + + [...] | | | | | performed at [facility], [address] | | | | | [facility], | | | | | [place] [address] | | | + + + + + + + | Specimen | + + | Blood | + + + + + + + | Performing | Address | City/State/Zipcode | Phone Number | | Organization | | | | + + + + + | [facility] | [address] | [place] [address] | [phone] | | LABORATORY | [address] | | | + + + + + POCT glucose (02/24/2018 12:28 AM) + + + + + | Component | Value | Ref Range | Performed At | + + + + + | GLUCOSE,POC SCREEN | 100 (H)Comment: Testing | 65 - 99 mg/dL | [facility] | | | performed at [facility];[address] | | | | | [address];[place], [place] | | | | | [address] | | | + + + + + + + + + + | Performing | Address | City/State/Zipcode | Phone Number | | Organization | | | | + + + + + | [facility] | [address] | [place] [address] | | + + + + + POC arterial CG8+ (02/23/2018 8:55 PM) + + + + + | Component | Value | Ref Range | Performed At | + + + + + | pH, Art | 7.362 | 7.350 - 7.450 | [facility] | + + + + [...] (H) | 95 - 98 % | [facility] | + + + + + | POC SODIUM | 138 | 135 - 145 mEq/L | [facility] | + + + + + | POC POTASSIUM | 4.1 | 3.5 - 5.0 mEq/L | [facility] | + + + + + | POC IONIZED CALCIUM | 1.08 (L) | 1.12 - 1.32 mmol/L | [facility] | + + + + + | POC GLUCOSE | 114 (H) | 65 - 99 mg/dL | [facility] | + + + + + | POC HCT | 34 (L) | 40.0 - 50.0 % | [facility] | + + + + + | POC HGB | 11.6 (L)Comment: Testing | 13.7 - 16.7 g/dL | [facility] | | | performed at [facility];[address] | | | | | [address];[place] | | | | | [address] | | | + + + + + + + + + + | Performing | Address | City/State/Zipcode | Phone Number | | Organization | | | | + + + + + | [facility] | [address] | [place] [address] | | + + + + + POCT glucose (02/23/2018 6:46 PM) + + + + + | Component | Value | Ref Range | Performed At | + + + + + | GLUCOSE,POC SCREEN | 109 (H)Comment: Testing | 65 - 99 mg/dL | [facility] | | | performed at [facility];[address] | | | | | [address];[place] | | | | | [address] | | | + + + + + + + + + + | Performing | Address | City/State/Zipcode | Phone Number | | Organization | | | | + + + + + | [facility] | [address] | [place] [address] | | + + + + + POCT glucose (02/23/2018 4:22 PM) + + + + + | Component | Value | Ref Range | Performed At | + + + + + | GLUCOSE,POC SCREEN | 128 (H)Comment: Testing | 65 - 99 mg/dL | [facility] | | | performed at [facility];[address] | | | | | [address];[place], [place] | | | | | [address] | | | + + + + + + + + + + | Performing | Address | City/State/Zipcode | Phone Number | | Organization | | | | + + + + + | [facility] | [address] | [place] [address] | | + + + + + [...] | | | | [facility], [address] | | | | | [place] | | | | | [address] | | | + + + + + + + | Specimen | + + | Blood | + + + + + + + | Performing | Address | City/State/Zipcode | Phone Number | | Organization | | | | + + + + + | [facility] | [address] | [place] [address] | [phone] | | LABORATORY | [address] | | | + + + + + Type and Screen (Blood Bank) (02/23/2018 4:09 PM) + + + + + | Component | Value | Ref Range | Performed At | + + + + + | ABO/RH(D) | A POSITIVE | | [facility] | + + + + + | ANTIBODY SCREEN | NEGATIVE | | [facility] | + + + + + | ARM BAND NUMBER | [id number] | | [facility] | | | performed at [facility];[address] | | | | | [address];[place], [place] | | | | | [address] | | | + + + + + + + | Specimen | + + | Blood | + + + + + + + | Performing | Address | City/State/Zipcode | Phone Number | | Organization | | | | + + + + + | [facility] | [address] | [place] [address] | | + + + + + POCT glucose (02/23/2018 12:17 PM) + + + + + | Component | Value | Ref Range | Performed At | + + + + + | GLUCOSE,POC SCREEN | 138 (H)Comment: Testing | 65 - 99 mg/dL | [facility] | | | performed at [facility];[address] | | | | | [address];[place], [place] | | | | | [address] | | | + + + + + + + + + + | Performing | Address | City/State/Zipcode | Phone Number | | Organization | | | | + + + + + | [facility] | [address] | [place] [address] | | + + + + + Vancomycin, trough (02/23/2018 8:21 AM) + + + + + | Component | Value | Ref Range | Performed At | + + + + + | VANCOMYCIN,TROUGH | 16.6Comment: 15 to 20 | 10 - 20 ug/mL | [facility] | | | ug/mL for meningitis, | | | | | osteomyelitis, | | | | | endocarditis, sepsis, or | | | | | healthcare associated | | | | | pneumonia, or an MODESTA | | | | | equal to or greater than | | | | | 1.0 ug/mLTesting | | | | | performed at [facility];[address] | | | | | [address];[place] | | | | | [address] | | | + + + + + + + | Specimen | + + | Blood | + + + + + + + | Performing | Address | City/State/Zipcode | Phone Number | | Organization | | | | + + + + + | [facility] | [address] | [place] [address] | | + + + + + POCT glucose (02/23/2018 5:33 AM) + + + + + | Component | Value | Ref Range | Performed At | + + + + + | GLUCOSE,POC SCREEN | 163 (H)Comment: Testing | 65 - 99 mg/dL | [facility] | | | performed at [facility];[address] | | | | | [address];[place] | | | | | [address] | | | + + + + + + + + + + | Performing | Address | City/State/Zipcode | Phone Number | | Organization | | | | + + + + + | [facility] | [address] | [place] [address] | | + + + + + APTT (02/23/2018 12:25 AM) + + + + + | Component | Value | Ref Range | Performed At | + + + + + | APTT | 40 (H)Comment: Testing | 23 - 32 seconds | [facility] | | | performed at [facility];[address] | | | | | [address];[place] | | | | | [id number] | | | + + + + + + + | Specimen | + + | Blood | + + + + + + + | Performing | Address | City/State/Zipcode | Phone Number | | Organization | | | | + + + + + | [facility] | [address] | [place] [address] | | + + + + + POCT glucose (02/22/2018 9:39 PM) + + + + + | Component | Value | Ref Range | Performed At | + + + + + | GLUCOSE,POC SCREEN | 95Comment: Testing | 65 - 99 mg/dL | [facility] | | | performed at [facility] [place] | | | | | [facility];[place], [place] | | | | | [address] | | | + + + + + + + + + + | Performing | Address | City/State/Zipcode | Phone Number | | Organization | | | | + + + + + | [facility] | [address] | [place] [address] | | + + + + + IR guidance vascular access US (02/22/2018 8:59 PM) + + + | Narrative | Performed At | + + + | This Point of Care (POC) ultrasound image has been reviewed and | [facility] | | interpreted by the physician identified as the performing physician in | RADIOLOGY | | the associated interpretation and report. | | + + + + + + + + | Performing | Address | City/State/Zipcode | Phone Number | | Organization | | | | + + + + + | [facility] | [address] | [place] [address] | | + + + + + IR angioplasty tiboperoneal additional vessel (02/22/2018 8:55 PM) + + + | Narrative | Performed At | + + + | DATE OF PROCEDURE: 02/22/2018 SURGEON: Johan Mueller MD | [facility] | | PREOPERATIVE DIAGNOSIS: 1) Right leg [...] was brought to | | | the senior laboratory technician and placed on supine position. Moderate sedation [...] DETAIL: The patient was brought to the senior laboratory technician and placed on | | supine position. [...] | + + + + + | [facility] | [address] | [place] [address] | | + + + + + IR david garcia (02/22/2018 8:55 PM) + + + | Narrative | Performed At | + + + | DATE OF PROCEDURE: 02/22/2018 SURGEON: Johan Mueller MD | [facility] | | PREOPERATIVE DIAGNOSIS: 1) Right leg [...] was brought to | | | the senior laboratory technician and placed on supine position. Moderate sedation [...] DETAIL: The patient was brought to the senior laboratory technician and placed on | | supine position. [...] | + + + + + | [facility] | [address] | [place] [address] | | + + + + + IR aortagram abdominal (02/22/2018 8:55 PM) + + + | Narrative | Performed At | + + + | DATE OF PROCEDURE: 02/22/2018 SURGEON: Johan Mueller MD | [facility] | | PREOPERATIVE DIAGNOSIS: 1) Right leg [...] was brought to | | | the senior laboratory technician and placed on supine position. Moderate sedation [...] PDT DATE OF PROCEDURE: 02/22/2018SURGEON: | | REYMUNDO JohansenREOPERATIVE DIAGNOSIS:1) Right leg ischemia with non healing [...] DETAIL: The patient was brought to the senior laboratory technician and placed on | | supine position. [...] | + + + + + | [facility] | [address] | [place] [address] | | + + + + + IR angiogram extremity right (02/22/2018 8:55 PM) + + + | Narrative | Performed At | + + + | DATE OF PROCEDURE: 02/22/2018 SURGEON: Johan Mueller MD | [facility] | | PREOPERATIVE DIAGNOSIS: 1) Right leg [...] was brought to | | | the senior laboratory technician and placed on supine position. Moderate sedation [...] DETAIL: The patient was brought to the senior laboratory technician and placed on | | supine position. [...] | + + + + + | [facility] | [address] | [place] [address] | | + + + + + POC ACT, arterial (02/22/2018 8:00 PM) + + + + + | Component | Value | Ref Range | Performed At | + + + + + | POC ACT | 241 (H)Comment: Testing | 74 - 137 seconds | [facility] | | | performed at [facility] | | | | | [address];[place] | | | | | [address] | | | + + + + + + + + + + | Performing | Address | City/State/Zipcode | Phone Number | | Organization | | | | + + + + + | [facility] | [address] | [place] [address] | | + + + + + POCT glucose (02/22/2018 5:00 PM) + + + + + | Component | Value | Ref Range | Performed At | + + + + + | GLUCOSE,POC SCREEN | 105 (H)Comment: Testing | 65 - 99 mg/dL | [facility] | | | performed at [facility];[address] | | | | | [address];[place], [place] | | | | | [address] | | | + + + + + + + + + + | Performing | Address | City/State/Zipcode | Phone Number | | Organization | | | | + + + + + | [facility] | [address] | [place] [address] | | + + + + + POCT glucose (02/22/2018 3:16 PM) + + + + + | Component | Value | Ref Range | Performed At | + + + + + | GLUCOSE,POC SCREEN | 110 (H)Comment: Testing | 65 - 99 mg/dL | [facility] | | | performed at [facility];[address] | | | | | [address];[place] | | | | | [address] | | | + + + + + + + + + + | Performing | Address | City/State/Zipcode | Phone Number | | Organization | | | | + + + + + | [facility] | [address] | [place] [address] | | + + + + + POCT glucose (02/22/2018 1:14 PM) + + + + + | Component | Value | Ref Range | Performed At | + + + + + | GLUCOSE,POC SCREEN | 76Comment: Testing | 65 - 99 mg/dL | [facility] | | | performed at [facility];[address] | | | | [address];[place] | | | | | [address] | | | + + + + + + + + + + | Performing | Address | City/State/Zipcode | Phone Number | | Organization | | | | + + + + + | [facility] | [address] | [place] [address] | | + + + + + US greater saphenous vein map bilat (02/22/2018 1:12 PM) + + + | Impressions | Performed At | + + + | 1. Bilateral greater saphenous vein mapping as described above. | [facility] | | | RADIOLOG[facility] | + + + + + + | Narrative | Performed At | + + + | HECT[facility] WALKER [address] GREATER SAPHENOUS VEIN MAPPING | [facility] | | BILATERAL 02/22/2018 1:12 PM HISTORY: [...] Results In - 02/22/2018 1:20 PM PDT [facility] GREATER | | SAPHENOUS VEIN MAPPING BILATERAL02/22/2018 [...] | + + + + + | [facility] | [address] | [place] [address] | | + + + + + POCT glucose (02/22/2018 11:40 AM) + + + + + | Component | Value | Ref Range | Performed At | + + + + + | GLUCOSE,POC SCREEN | 73Comment: Testing | 65 - 99 mg/dL | [facility] | | | performed at [facility];[address] | | | | [address];[place] | | | | | [address] | | | + + + + + + + + + + | Performing | Address | City/State/Zipcode | Phone Number | | Organization | | | | + + + + + | [facility] | [address] | [place] [address] | | + + + + + aPTT - Q6 starting in 6 hours x 2 (02/22/2018 11:20 AM) + + + + + | Component | Value | Ref Range | Performed At | + + + + + | APTT | 65 (H)Comment: Testing | 23 - 32 seconds | [facility] | | | performed at [facility];[address] | | | | | [address];[place] | | | | | [address] | | | + + + + + + + | Specimen | + + | Blood | + + + + + + + | Performing | Address | City/State/Zipcode | Phone Number | | Organization | | | | + + + + + | [facility] | [address] | [place] [address] | | + + + + + [...] male with pain and nonhealing wound | [facility] | | TECHNIQUE: Ultrasound interrogation of ankle-brachial [...] 159 mmHg. | | | Yielding an ARMINDA of 1.2. Left posterior tibial vessel measured [...] Procedure Note | + + | Claudio Snoi Results In 02/22/2018 8:03 AM PDT HISTORY: [...] | + + + + + | [facility] | [address] | [place] [address] | | + + + + + US lower extremty arterial right (02/22/2018 7:55 AM) + + + | Impressions | Performed At | + + + | 1. The proximal DIRECTOR OF RECRUITING appears occluded with distal reconstitution | [facility] | | via collaterals. 2. Mid peroneal [...] Performed At | + + + | [facility]ECT[facility] WALK[facility] US LOWER EXTREMITY ARTERIAL RIGHT 02/22/2018 6:29 AM | [facility] | | HISTORY: 57 years. Male. Peripheral [...] systolic velocities (cm/s) / Doppler Waveform: Right: MED SPEC | | | Prox: 124.8 and triphasic DFA Prox: 69.5 and triphasic SFA Prox: | | | 107.7 and triphasic SFA Mid:90.9 and triphasic SFA Distal: 78 and | | | triphasic POP Mid: 65.6 and triphasic Tibioperoneal trunk: 45 and | | | biphasic JOSE ANGEL Prox: 171.1 and triphasic JOSE ANGEL Distal: 107 and | | | monophasic DIRECTOR OF RECRUITING Prox: 0 and absent DIRECTOR OF RECRUITING Distal: 28.3 and monophasic | | | OSMAR Prox: 31 and biphasic Peroneal mid: Appears occluded. OSMAR | | | Distal: 88 and monophasic Dorsalis pedis artery: 48 and monophasic | | | Atherosclerosis in arteries of right lower extremity vascular | | | calcifications. The proximal DIRECTOR OF RECRUITING appears occluded with distal | | | reconstitution via collaterals. Mid peroneal artery appears occluded | | | with distal reconstitution via collaterals. Probable hemodynamically | | | significant stenosis in proximal JOSE ANGEL. | | + + + + + | Procedure Note | + + | Zachariah, Rad Results In - 02/22/2018 7:55 AM PDT HECTOR QUEZ[facility] LOWER EXTREMITY | | ARTERIAL RIGHT02/22/2018 6:29 AMHISTORY:57 years. Male. Peripheral vascular disease. | | Right second toe amputation.COMPARISON:10/20/2017Limitations: Suboptimal examination due | | to vascular calcifications and atherosclerosis. Patient pain.TECHNIQUE:Sonographic | | evaluation of bilateral lower extremity arterial system. Grayscale, color-flow, and | | Doppler spectral analysis. Peak systolic velocities | | (cm/s) / Doppler Waveform:Right:MED SPEC Prox: 124.8 and triphasicDFA Prox: 69.5 and | | triphasicSFA Prox: 107.7 and triphasicSFA Mid:90.9 and triphasicSFA Distal: 78 and | | triphasicPOP Mid: 65.6 and triphasicTibioperoneal trunk: 45 and biphasicATA Prox: 171.1 | | and triphasicATA Distal: 107 and monophasicPTA Prox: 0 and absentPTA Distal: 28.3 and | | monophasicPERA Prox: 31 and biphasicPeroneal mid: Appears occluded.OSMAR Distal: 88 and | | monophasicDorsalis pedis artery: 48 and monophasicAtherosclerosis in arteries of right | | lower extremity vascular calcifications.The proximal DIRECTOR OF RECRUITING appears occluded with distal | | reconstitution via collaterals.Mid peroneal artery appears occluded with distal | | reconstitution via collaterals.Probable hemodynamically significant stenosis in proximal | | JOSE ANGEL.IMPRESSION:1. The proximal DIRECTOR OF RECRUITING appears occluded with distal reconstitution via | [...] |JOSE ANGEL Distal: 107 and monophasic | |DIRECTOR OF RECRUITING Prox: 0 and absent | |DIRECTOR OF RECRUITING Distal: 28.3 and monophasic | |OSMAR Prox: 31 and biphasic | |Peroneal mid: Appears occluded. | |OSMAR Distal: 88 and monophasic | |Dorsalis pedis artery: 48 and monophasic | | | |Atherosclerosis in arteries of right lower extremity vascular calcifications. | | | |The proximal DIRECTOR OF RECRUITING appears occluded with distal reconstitution via collaterals. | |Mid peroneal artery appears occluded with distal reconstitution via collaterals. | |Probable hemodynamically significant stenosis in proximal JOSE ANGEL. | | | |IMPRESSION: | |1. The proximal DIRECTOR OF RECRUITING appears occluded with distal reconstitution via collaterals. [...] | + + + + + | [facility] | [address] | [place] [address] | | + + + + + [...] | LABORATORY | | | [address], [address] | | | | | [place] | | | | | [address] | | | + + + + + + + + + + | Performing | Address | City/State/Zipcode | Phone Number | | Organization | | | | + + + + + | [facility] | [address] | [place] [address] | [phone] | | LABORATORY | Blvd. | | [...] + + + | [facility] | [address] | [place] [address] | [phone] | | LABORATORY | Blvd. | | [...] + + + + + | Specific Keeler, UA | 1.012 | 1.002 - 1.030 [...] | TRACE (A) | NEGATIVE mg/dL | [facility] | | | | | LABORATORY | + + + + + | BILIRUBIN | NEGATIVE | NEGATIVE | [facility] | | | | | LABORATORY | + + + + + | GLUCOSE | NEGATIVEComment: Testing | NEGATIVE mg/dL | [facility] | | | performed at [facility], [address] | | LABORATORY | | | [address], | | | | | [place] [address] | | | + + + + + + + | Specimen | + + | Urine - Urine, Clean | | Catch | + + + + + + + | Performing | Address | City/State/Zipcode | Phone Number | | Organization | | | | + + + + + | [facility] | [address] | [place] [address] | [phone] | | LABORATORY | [address] | | | + + + + + POCT glucose (02/22/2018 4:06 AM) + + + + + | Component | Value | Ref Range | Performed At | + + + + + | GLUCOSE,POC SCREEN | 93Comment: Testing | 65 - 99 mg/dL | [facility] | | | performed at [facility];[address] | | | | | [address];[place], [place] | | | | | [address] | | | + + + + + + + + + + | Performing | Address | City/State/Zipcode | Phone Number | | Organization | | | | + + + + + | [facility] | [address] | [place] [address] | | + + + + + MRSA by PCR (02/22/2018 4:06 AM) + + + + + | Component | Value | Ref Range | Performed At | + + + + + | SOURCE | NARES(NOSE) | | [facility] | + + + + + | MRSA PCR | NEGATIVEComment: Testing | NEGATIVE | [facility] | | | performed at [facility];[address] | | [address];[place], [place] | | | | | [address] | | | + + + + + + + | Specimen | + + | Nasopharyngeal - | | Santoshes(Nose) | + + + + + + + | Performing | Address | City/State/Zipcode | Phone Number | | Organization | | | | + + + + + | [facility] | [address] | [place] [address] | | + + + + + remberto Fink (02/22/2018 3:30 AM) + + + + + | Component | Value | Ref Range | Performed At | + + + + + | REMBERTO FINK | 0.4 (H)Comment: Testing | 0.0 - 0.3 mg/dL | [facility] | | | performed at [facility], [address] | | LABORATORY | | | [address], | | | | | [place] [address] | | | + + + + + + + + + + | Performing | Address | City/State/Zipcode | Phone Number | | Organization | | | | + + + + + | [facility] | [address] [place] [address] | [place] [address] | [phone] | | LABORATORY | [place]. | | | + + + + + Protime-INR (02/22/2018 3:30 AM) + + + + + | Component | Value | Ref Range | Performed At | + + + + + | INR | 1.1Comment: REFERENCE | | [facility] | | | RANGE:0.9 - [...] | | | | | performed at [facility];[address] | | | | | [address];[place] | | | | | [address] | | | + + + + + + + + + + | Performing | Address | City/State/Zipcode | Phone Number | | Organization | | | | + + + + + | [facility] | [address] | [place] [address] | | + + + + + Septic Lactic Acid (02/22/2018 3:30 AM) + + + + + | Component | Value | Ref Range | Performed At | + + + + + | LACTIC ACID | 1.2Comment: Testing | 0.4 - 2.0 mmol/L | [facility] | | | performed at [facility];[address] | | | | | [address];[place] | | | | | [address] | | | + + + + + + + + + + | Performing | Address | City/State/Zipcode | Phone Number | | Organization | | | | + + + + + | [facility] | [address] | [place] [address] | | + + + + + aPTT - Q6 starting in 6 hours x 2 (02/22/2018 3:30 AM) + + + + + | Component | Value | Ref Range | Performed At | + + + + + | APTT | 132 ()Comment: PTT | 23 - 32 seconds | [facility] | | | PHONED TO DANNIE SOOD | | | | | AT 0415 BY Hackers / FoundersREAD BACK | | | | | RESULTS VERIFIEDTesting | | | | | performed at [facility];[address] | [address];[place] | | | | | [address] | | | + + + + + + + | Specimen | + + | Blood | + + + + + + + | Performing | Address | City/State/Zipcode | Phone Number | | Organization | | | | + + + + + | [facility] | [address] | [place] [address] | | + + + + + Glycohemoglobin A1C (02/22/2018 3:30 AM) + + + + + | Component | Value | Ref Range | Performed At | + + + + + | HEMOGLOBIN A1C | 7.9 (H)Comment: The | 4.0 - 6.0 % | [facility] | | | [employer] | | LABORATORY | | | [...] | 180Comment: The ADA | mg/dL | [facility] | [...] | | | | | performed at [facility], [address] | | | | | [facility], | | | | | [place] [address] | | | + + + + + + + | Specimen | + + | Blood | + + + + + + + | Performing | Address | City/State/Zipcode | Phone Number | | Organization | | | | + + + + + | [facility] | [address] | [place] [address] | [phone] | | LABORATORY | Blvd. | | [...] (H) | 0.1 - 1.5 mg/dL | [facility] | | | | | LABORATORY | + + + + + | ALK PHOS | 83 | 35 - 115 U/L | [facility] | | | | | LABORATORY | + + + + + | AST | 21 | 10 - 45 U/L | [facility] | | | | | LABORATORY | + + + + + | ALT | 25 | 10 - 65 U/L | [facility] | | | | | LABORATORY | + + + + + | EGFR | >60Comment: GFR <60: | >60 mL/min/1.73m2 | [facility] | | | CHRONIC KIDNEY DISEASE, | [...] at | | | | | TC, [address] [place] [address] | | | | | [place], | | | | | [place] [address] | | | + + + + + + + | Specimen | + + | Blood | + + + + + + + | Performing | Address | City/State/Zipcode | Phone Number | | Organization | | | | + + + + + | [facility] | [address] | [place] [address] | [phone] | | LABORATORY | [address]. | | | + + + + + Magnesium (02/22/2018 3:30 AM) + + + + + | Component | Value | Ref Range | Performed At | + + + + + | MAGNESIUM | 1.9Comment: Testing | 1.7 - 2.4 mg/dL | [facility] | | | performed at [facility], [address] | | LABORATORY | | | [address] [facility], | | | | | [place] [address] | | | + + + + + + + | Specimen | + + | Blood | + + + + + + + | Performing | Address | City/State/Zipcode | Phone Number | | Organization | | | | + + + + + | [facility] | [address] | [place] [address] | [phone] | | LABORATORY | Blvd. | | [...] Testing | 0.00 - 0.10 K/uL | [facility] | | | performed at [facility], [address] | | LABORATORY | | | [facility], | | | | | [place] [address] | | | + + + + + + + | Specimen | + + | Blood | + + + + + + + | Performing | Address | City/State/Zipcode | Phone Number | | Organization | | | | + + + + + | [facility] | [address] [place] [address] | [place] [address] | [phone] | | LABORATORY | Blvd. | | [...] + + + | [facility] | [address] | [place] [address] | [phone] | | LABORATORY | [place] | | | + + + + + | [facility] | [address] | [place] [address] | | + + + + + Cardiac Panel (02/21/2018 9:00 PM) + + + + + | Component | Value | Ref Range | Performed At | + + + + + | WBC | 16.21 (H) | 3.80 - 11.00 K/uL | [facility] | + + + + + | RBC | 4.73 | 4.20 - 5.70 M/uL | [facility] | + + + + + | HGB | 14.6 | 13.2 - 17.0 g/dL | [facility] | + + + + + | HCT | 41.4 | 39.0 - 50.0 % | [facility] | + + + + + | MCV | 87.6 | 80.0 - 100.0 fl | [facility] | + + + + + | MCH | 30.9 | 27.0 - 34.0 pg | [facility] | + + + + + | MCHC | 35.3 | 32.0 - 35.5 g/dL | [facility] | + + + + + | RDW SD | 39.8 | 37 - 53 fl | [facility] | + + + + + | PLT | 261 | 150 - 400 K/uL | [facility] | + + + + + [...] (H) | 1.90 - 7.40 K/uL | [facility] | + + + + + | LYMPHOCYTES ABS | 0.90 (L) | 1.00 - 3.90 K/uL | [facility] | + + + + + | MONOCYTES ABS | 0.99 (H) | 0.00 - 0.80 K/uL | [facility] | + + + + + | EOSINOPHILS ABS | 0.00 | 0.00 - 0.50 K/uL | [facility] | + + + + + | BASOPHILS ABS | 0.03 | 0.00 - 0.10 K/uL | [facility] | + + + + + | MORPHOLOGY | RBC AND PLT MORPHOLOGY | | [facility] | | | APPEAR NORMAL | | | + + + + + | Platelet Estimate | ADEQUATE | | [facility] | + + + + + | Diff Comment | SLIDE SCANNED, AGREES | | [facility] | | | WITH AUTOMATED RESULTS. | | | + + + + + | SODIUM | 134 (L) | 135 - 145 mmol/L | [facility] | + + + + + | POTASSIUM | 4.1 | 3.5 - 4.9 mmol/L | [facility] | + + + + + | CHLORIDE | 97 (L) | 99 - 109 mmol/L | [facility] | + + + + + | CO2 | 28 | 23 - 32 mmol/L | [facility] | + + + + + | ANION GAP AGAP | 13 | 5 - 20 mmol/L | [facility] | + + + + + | GLUCOSE | 79 | 65 - 99 mg/dL | [facility] | + + + + + | BUN | 14 | 8 - 25 mg/dL | [facility] | + + + + + | CREATININE | 1.1 | 0.70 - 1.30 mg/dL | [facility] | + + + + + | BUN/CREAT | 13 | | [facility] | + + + + + | CALCIUM | 9.1 | 8.5 - 10.5 mg/dL | [facility] | + + + + + | TOTAL PROTEIN | 7.9 | 6.3 - 8.2 g/dL | [facility] | + + + + + | Albumin | 2.8 (L) | 3.6 - 5.0 g/dL | [facility] | + + + + + | GLOBULIN | 5.1 (H) | 1.3 - 4.9 g/dL | [facility] | + + + + [...] 30 | 10 - 45 U/L | [facility] | + + + + + | ALT | 28 | 10 - 65 U/L | [facility] | + + + + + | EGFR | >60Comment: GFR <60: | >60 mL/min/1.73m2 | [facility] | | | CHRONIC KIDNEY [...] the | | | | | MDRD [facility] traceable | | | | | equation. PLEASE NOTE | | | | | NEW CALCULATION | | | | | EFFECTIVE 01/25/2018 | | | + + + + + | CPK | 32 (L) | 55 - 400 U/L | [facility] | + + + + + | INR | 1.1Comment: REFERENCE | | [facility] | | | RANGE:0.9 - [...] (H) | 23 - 32 seconds | [facility] | + + + + + | MMB | <1.0 | 0.5 - 3.6 ng/mL | [facility] | + + + + + | CK-MB Index | UNABLE TO | | [facility] | | | CALCULATEComment: | | | | | Testing performed at | | | | | [facility];[address] [place] [address] | | | | | Blvd;[place] [address] | | | + + + + + + + + + + | Performing | Address | City/State/Zipcode | Phone Number | | Organization | | | | + + + + + | [facility] | [address] | [place] [address] | | + + + + + [...] + + + | [facility] | [address] | [place] [address] | [phone] | | LABORATORY | Blvd. | | | + + + + + | [facility] | [address] | [place] [address] | | + + + + + Septic Lactic Acid (02/21/2018 9:00 PM) + + + + + | Component | Value | Ref Range | Performed At | + + + + + | LACTIC ACID | 1.9Comment: Testing | 0.4 - 2.0 mmol/L | [facility] | | | performed at [facility];[address] | [address];[place] | | | | | [address] | | | + + + + + + + + + + | Performing | Address | City/State/Zipcode | Phone Number | | Organization | | | | + + + + + | [facility] | [address] | [place] [address] | | + + + + + [...] +---+---+ | | | +---+---+ + +-------+ +-------+---+-------+ | bupivacaine (PF) (MARCAINE) 0.5 | Given | | 5 mLs | | Other | | % injection PRN, Starting Fri | | 8 19:02 | | | | | 02/25/18 at 1902, Intra-op | | PDT | | | | + +-------+ +-------+---+-------+ +---+---+ | | | +---+---+ + +-------+ [...] | | First dose on Wed02/22/18 at 0211 | | + +---+ | | | + +---+ + +-------+ +-------+---+---+ | famotidine (PEPCID) tablet 20 | Given | 02/28/2018 | 20 mg | | | | mg 20 mg, Oral, 2 Times Daily, | | 09:20 | | | | | First dose on Wed02/22/18 at 0211 | | PDT | | | | [...] | | | | | | Starting [facility] 02/24/18 at 0031 | | | | [...] | +---+---+ + +-------+ +-------+---+---+ | lidocaine 1 % injection PRN, | Given | | 5 mLs | | | | Starting 02/25/18 at 1914, | | 8 19:02 | | | | | Intra-op | | PDT | | | [...] PDT | | | | | Starting 02/22/18 [...] tolerating oral fluids, | | | Starting Wed02/25/18 at 2132 | | + +---+ | [...]
--- OUTSIDE RECORDS SUMMARY | ~2018-04-10 | XMS | Encounter Summary ---
Demographics + + + | Address | [address] | | | [place] [address] | + + + | Home Phone [...] + + + | Author | [facility] [employer] | + + + | Organization | [facility] [employer] | + + + | Address | Unknown | + + + | Phone | Unavailable | + + + Support + + +---------+ + | Name | Relationship | Address | Phone | + + +---------+ + | Megan Walker | ECON | Unknown | | + + +---------+ + Care Team Providers + +------+ + | Care Legal Document Specialist Name | Role | Phone | + [...] | | | | vascular | | [place], [place] | | | | | disease) | | [address] Phone: | | | | | ([facility]) | | [phone] | | | | | Amputation | | Fax: | | | | | stump | | [phone] | | | | | infection | [...] + + + + | 03/30/ | Hospital | [facility] | [address] | Amputation stump | | 2018 - | Encounter | Medical Center | Radha DO [address] | infection (HCC) | | | | Surgical [address] | [address] [place], [place] | (Primary Dx); PVD | | 04/04/ | | Blvd [place], [place] | [address] | (peripheral vascular | | 2018 | | [id number] | Kade Gomez MD | disease) (HCC) | | | | | [address] | | | | | | [place] [address] | | | | | | [phone] | | | | | | | | | | | | Caroline Yuan MD | | | | | | [address] | | | | | | [place] [address] | | | | | | [phone] | | | | | | | [...] make any major decisions for at least first24 hours. Don t drive while you [...] t mow the lawn, use a vacuum card cleaner, or do other strenuous activities until [...] Increased redness or drainage of the incision Cbfdm967.5F (38.5C) or higher Trouble urinating Nausea or vomiting [id number] [employer]. [address] [place] [address], [place] [address]. All righ ts reserved. This information is [...] note may be different from the original. [facility] Service: Vascular Surgery Progress Note [...] atherectomy and balloon angioplasty on 10/20/2017at the [facility] Denture Contour Wire Specialist. His bilateral heel wounds were healed. He [...] The patient was see n by his logger all round Dr. Walker and was prescribed oral antibiotics. [...] distal leg. 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 Catalogue Clerk Dr. Garcia consulted, he discussed with patient regarding TMA and BKA, the patient opted for TMA. The patient neededright popliteal artery to posterior tibial artery bypass to improv e posterior circulation prior to TMA. He underwent Rightbelow knee popliteal artery to pos terior tibialartery bypass with ipsilateral non-reversed great saphenous vein graft and Ri ght posterior tibialartery endarterectomy on 02/23/2018. He presented [...] morning when transfer, no injury to right BKA remedios mp. Surgical dressing changed today. Pain well controlled. [...] in 2 weeks. Code Status: Full Code Chris Duggan, DNP Johan Flakita Rashid MD 04/03/2018Garfield Ball MD-R1 - 04/03/2018 5:13 AM PDTFormatting of this note ma y be different from the original. [facility] Service: Hospitalist Progress Note Hospital [...] stump requiring ruiz rgical intervention. [facility] [place] [facility], when his right foot amputation [...] Diet: Diabetic Disposition: Inpatient anticipate discharge on 8/6/18 Code Status: Full Code Garfield Ball MD-R1 04/03/2018 Associated attestation - Caroline Yuan MD - 04/06/2018 8:41 PM PDTI have seen and examin ed the patient and agree with resident's note. Pain controlled. Dr. Rashid to examine wound on Wednesday. Johan Rashid MD - 04/02/2018 11:38 AM PDTFormatting of this note may be different f rom the original. [facility] Service: Vascular Surgery Progress Note [...] atherectomy and balloon angioplasty on 10/20/2017at the [facility] Cat h Lab. His bilateral heel wounds [...] The patient was see n by his logger all round Dr. Walker and was prescribed oral antibiotics. [...] distal leg. 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 Catalogue Clerk Dr. Garcia consulted, he discussed with patient [...] and infection of his right lower extremity, [facility] ular surgery was consulted to [...] may be di fferent from the original. [facility] Service: Hospitalist Progress Note Hospital [...] cted stump requiring surgical intervention. [facility] was[facility] [place] for [facility], when his right foot amputation [...] note may be different from the original. [facility] Service: Hospitalist Progress Note Hospital Day: LOS: 2 days Post-Op Day: 1 Day Post-Op SUBJECTIVE Patient Summary: The patient is a 57 y.o.malewith significant past medical history of HTN, HLD, diabetes mellitus type II, history of PVD who recently had right popliteal to PTAbypass and right transmetatarsal amputation on 02/25/18. He wasdischarged on 03/15. [facility] [place] [facility], when his right foot a [...] FiO2 : [26 %-91 %] 86 % (03/316) Physical Exam Constitutional: He is oriented to [...] Estimated Energy Needs Total Energy Estimated Needs [id number] kcal Method for Estimating Needs 25-30 kcal/kg [...] Follow up date 04/05/[address], Garfield Lock MD-R1 - 03/31/2018 6:22 AM PDTFormatting of this note may be different from the original. [facility] Service: Hospitalist Progress Note Hospital Day: LOS: 1 day SUBJECTIVE Patient Summary: The patient is a 57 y.o. male with significant past medical history of HTN, HLD, diabetes m ellitus type II, history of PVD who recently had right popliteal to FLAME PLANER bypass and right tra nsmetatarsal amputation on 02/25/18. He was discharged on 03/15. He was in an assisted care facility in [place] for rehabilitation, when his right foot am [...] QTC Calculation (Bezet) 425 ms Calculated P [place] 9 degrees Calculated R [place] 53 degrees Calculated T [place] 53 degrees Diagnosis Normal sinus rhythm Normal [...] POSITIVE ANTIBODY SCREEN NEGATIVE ARM BAND NUMBER [id number] Testing performed at [facility];[address] [place] [address];[place] [address] CBC w/auto diff (reflex to manual) Collection [...] PVD. Coumadin was reversed with Vit K juan michel with INR coming down from 3.0 to [...] Continue abx, management per ID. Melly Baron, [facility] - 03/30/2018 8:52 PM PDTRenal Dosing Monitoring: [...] | Office | Vascular Surgery | Chris Duggan, CHANTEL | | | 2018 | Visit | | [address] [place] | | | | | | [place] | | | | | | [address] | | | | | | | [...] Testing | 65 - 99 mg/dL | [facility] | | | performed at [facility];[address] | | | | | [address];[place] | | | | | [address] | | | + + + + + + + + + + | Performing | Address | City/State/Zipcode | Phone Number | | Organization | | | | + + + + + | [facility] | [address] | [place] [address] | | + + + + + POCT glucose (04/04/2018 5:59 AM) + + + + + | Component | Value | Ref Range | Performed At | + + + + + | GLUCOSE,POC SCREEN | 127 (H)Comment: Testing | 65 - 99 mg/dL | [facility] | | | performed at [facility];[address] | | | | | [address];[place] | | | | | [address] | | | + + + + + + + + + + | Performing | Address | City/State/Zipcode | Phone Number | | Organization | | | | + + + + + | [facility] | [address] | [place] [address] | | + + + + + [...] | | | | | [place] [address] | | | + + + + + + + | Specimen | + + | Blood | + + + + + + + | Performing | Address | City/State/Zipcode | Phone Number | | Organization | | | | + + + + + | [facility] | [address] | [place] [address] | [phone] | | LABORATORY | [address] | | | + + + + + POCT glucose (04/03/2018 9:30 PM) + + + + + | Component | Value | Ref Range | Performed At | + + + + + | GLUCOSE,POC SCREEN | 146 (H)Comment: Testing | 65 - 99 mg/dL | [facility] | | | performed at [facility];[address] | | | | | [address];[place] | | | | | [address] | | | + + + + + + + + + + | Performing | Address | City/State/Zipcode | Phone Number | | Organization | | | | + + + + + | [facility] | [address] | [place] [address] | | + + + + + POCT glucose (04/03/2018 4:27 PM) + + + + + | Component | Value | Ref Range | Performed At | + + + + + | GLUCOSE,POC SCREEN | 165 (H)Comment: Testing | 65 - 99 mg/dL | [facility] | | | performed at [facility];[address] | | | | | [address];[place] | | | | | [address] | | | + + + + + + + + + + | Performing | Address | City/State/Zipcode | Phone Number | | Organization | | | | + + + + + | [facility] | [address] | [place] [address] | | + + + + + POCT glucose (04/03/2018 11:57 AM) + + + + + | Component | Value | Ref Range | Performed At | + + + + + | GLUCOSE,POC SCREEN | 113 (H)Comment: Testing | 65 - 99 mg/dL | [facility] | | | performed at [facility];[address] | | | | [address];[place] | | | | | [address] | | | + + + + + + + + + + | Performing | Address | City/State/Zipcode | Phone Number | | Organization | | | | + + + + + | [facility] | [address] | [place] [address] | | + + + + + POCT glucose (04/03/2018 5:33 AM) + + + + + | Component | Value | Ref Range | Performed At | + + + + + | GLUCOSE,POC SCREEN | 101 (H)Comment: Testing | 65 - 99 mg/dL | [facility] | | | performed at [facility];[address] | | | | | [address];[place] | | | | | [address] | | | + + + + + + + + + + | Performing | Address | City/State/Zipcode | Phone Number | | Organization | | | | + + + + + | [facility] | [address] | [place] [address] | | + + + + + [...] | [facility] | | | performed at [facility], [address] | | LABORATORY | | | [address], | | | | | [place] [address] | | | + + + + + + + | Specimen | + + | Blood | + + + + + + + | Performing | Address | City/State/Zipcode | Phone Number | | Organization | | | | + + + + + | [facility] | [address] | [place] [address] | [phone] | | LABORATORY | [address] | | | + + + + + POCT glucose (04/02/2018 9:21 PM) + + + + + | Component | Value | Ref Range | Performed At | + + + + + | GLUCOSE,POC SCREEN | 139 (H)Comment: Testing | 65 - 99 mg/dL | [facility] | | | performed at [facility];[address] | | | | | [address];[place] | | | | | [address] | | | + + + + + + + + + + | Performing | Address | City/State/Zipcode | Phone Number | | Organization | | | | + + + + + | [facility] | [address] | [place] [address] | | + + + + + POCT glucose (04/02/2018 4:05 PM) + + + + + | Component | Value | Ref Range | Performed At | + + + + + | GLUCOSE,POC SCREEN | 139 (H)Comment: Testing | 65 - 99 mg/dL | [facility] | | | performed at [facility];[address] | | | | | [address];[place] | | | | | [address] | | | + + + + + + + + + + | Performing | Address | City/State/Zipcode | Phone Number | | Organization | | | | + + + + + | [facility] | [address] | [place] [address] | | + + + + + POCT glucose (04/02/2018 11:41 AM) + + + + + | Component | Value | Ref Range | Performed At | + + + + + | GLUCOSE,POC SCREEN | 130 (H)Comment: Testing | 65 - 99 mg/dL | [facility] | | | performed at [facility];[address] | | | | | [address];[place] | | | | | [address] | | | + + + + + + + + + + | Performing | Address | City/State/Zipcode | Phone Number | | Organization | | | | + + + + + | [facility] | [address] | [place] [address] | | + + + + + POCT glucose (04/02/2018 5:24 AM) + + + + + | Component | Value | Ref Range | Performed At | + + + + + | GLUCOSE,POC SCREEN | 138 (H)Comment: Testing | 65 - 99 mg/dL | [facility] | | | performed at [facility];[address] | | | | | [address];[place] | | | | | [address] | | | + + + + + + + + + + | Performing | Address | City/State/Zipcode | Phone Number | | Organization | | | | + + + + + | [facility] | [address] | [place] [address] | | + + + + + [...] the | | | | | MDRD IDMI traceable | | | | | equation.Testing | | | | | performed at [facility], [address] | | | | | [facility], | | | | | [place] [address] | | | + + + + + + + | Specimen | + + | Blood | + + + + + + + | Performing | Address | City/State/Zipcode | Phone Number | | Organization | | | | + + + + + | [facility] | [address] | [place] [address] | [phone] | | LABORATORY | [address]vd. | | [...] | [facility] | | | performed at [facility], [address] | | LABORATORY | | | [address], | | | | | [place] [address] | | | + + + + + + + | Specimen | + + | Blood | + + + + + + + | Performing | Address | City/State/Zipcode | Phone Number | | Organization | | | | + + + + + | [facility] | [address] | [place] [address] | [phone] | | LABORATORY | [address] | | | + + + + + POCT glucose (04/01/2018 9:45 PM) + + + + + | Component | Value | Ref Range | Performed At | + + + + + | GLUCOSE,POC SCREEN | 236 (H)Comment: Testing | 65 - 99 mg/dL | [facility] | | | performed at [facility];[address] | | | | | [address];[place], [place] | | | | | [address] | | | + + + + + + + + + + | Performing | Address | City/State/Zipcode | Phone Number | | Organization | | | | + + + + + | [facility] | [address] | [place] [address] | | + + + + + POCT glucose (04/01/2018 4:14 PM) + + + + + | Component | Value | Ref Range | Performed At | + + + + + | GLUCOSE,POC SCREEN | 174 (H)Comment: Testing | 65 - 99 mg/dL | [facility] | | | performed at [facility];[address] | | | | | [address];[place] | | | | | [address] | | | + + + + + + + + + + | Performing | Address | City/State/Zipcode | Phone Number | | Organization | | | | + + + + + | [facility] | [address] | [place] [address] | | + + + + + POCT glucose (04/01/2018 11:10 AM) + + + + + | Component | Value | Ref Range | Performed At | + + + + + | GLUCOSE,POC SCREEN | 247 (H)Comment: Testing | 65 - 99 mg/dL | [facility] | | | performed at [facility];[address] | | | | | [address];[place] | | | | | [address] | | | + + + + + + + + + + | Performing | Address | City/State/Zipcode | Phone Number | | Organization | | | | + + + + + | [facility] | [address] | [place] [address] | | + + + + + Protime-INR (04/01/2018 9:23 AM) + + + + + | Component | Value | Ref Range | Performed At | + + + + + | INR | 1.1Comment: REFERENCE | | [facility] | | | RANGE:0.9 [...] | performed at [facility] | | | | | [address];[place], [place] | | | | | [address] | | | + + + + + + + | Specimen | + + | Blood | + + + + + + + | Performing | Address | City/State/Zipcode | Phone Number | | Organization | | | | + + + + + | [facility] | [address] | [place] [address] | | + + + + + POCT glucose (04/01/2018 5:52 AM) + + + + + | Component | Value | Ref Range | Performed At | + + + + + | GLUCOSE,POC SCREEN | 277 (H)Comment: Testing | 65 - 99 mg/dL | [facility] | | | performed at [facility];[address] | | | | | [address];[place] | | | | | [address] | | | + + + + + + + + + + | Performing | Address | City/State/Zipcode | Phone Number | | Organization | | | | + + + + + | [facility] | [address] | [place] [address] | | + + + + + [...] 0.9 | 0.70 - 1.30 mg/dL | [facility] [...] | | | | | performed at [facility], [address] | | | | | [facility], | | | | | [place] [address] | | | + + + + + + + | Specimen | + + | Blood | + + + + + + + | Performing | Address | City/State/Zipcode | Phone Number | | Organization | | | | + + + + + | [facility] | [address] | [place] [address] | [phone] | | LABORATORY | [address]vd. | | [...] performed at | | | | | [facility], [address] [place] [address] | | | | | [place], [place] | | | | | [address] | | | + + + + + + + | Specimen | + + | Blood | + + + + + + + | Performing | Address | City/State/Zipcode | Phone Number | | Organization | | | | + + + + + | [facility] | [address] | [place] [address] | [phone] | | LABORATORY | [address]vd[address] | | | + + + + + Pathology histology - tissue (04/01/2018) + + | Specimen | + + | Tissue | + + + + + | Narrative | Performed At | + + + | SPECIMEN(S): A Rt. BELOW KNEE AMPUTATION SPECIMEN SOURCE: A. | [facility] | | Rt. BELOW KNEE AMPUTATION [...] Received fresh designated | | | "right cevca-epo-txke amputation" consists of a right modkk-lwy-yxmc | | | amputated leg that is 29.5 cm from iyvg-fd-poxgsnthl margin and has a | | | [...] | surgical resection margin is grossly viable. [employer] Director sections | | | are submitted in [...] preparation was performed | | | by [facility], [facility], [address] [place] [address]., | | | [place] [address] (Heel Brusher: Ha Couch M.D.; | | | [facility]#: [id number]). Diagnostician: Breann Melara MD Pathologist | | | Electronically Signed 04/04/2018 | | + + + + +---------+ + + | Performing | Address | City/State/Rust[place] | Phone Number | | Organization | | | | + +---------+ + + | [facility] | | | | + +---------+ + + POCT glucose (03/31/2018 9:45 PM) + + + + + | Component | Value | Ref Range | Performed At | + + + + + | GLUCOSE,POC SCREEN | 336 (H)Comment: Testing | 65 - 99 mg/dL | [facility] | | | performed at [facility];[address] | | | | | [address];[place] | | | | | [address] | | | + + + + + + + + + + | Performing | Address | City/State/Zipcode | Phone Number | | Organization | | | | + + + + + | [facility] | [address] | [place] [address] | | + + + + + POCT glucose (03/31/2018 2:41 PM) + + + + + | Component | Value | Ref Range | Performed At | + + + + + | GLUCOSE,POC SCREEN | 118 (H)Comment: Testing | 65 - 99 mg/dL | [facility] | | | performed at [facility];[address] | | | | | [address];[place] | | | | | [address] | | | + + + + + + + + + + | Performing | Address | City/State/Zipcode | Phone Number | | Organization | | | | + + + + + | [facility] | [address] | [place] [address] | | + + + + + POCT glucose (03/31/2018 11:30 AM) + + + + + | Component | Value | Ref Range | Performed At | + + + + + | GLUCOSE,POC SCREEN | 94Comment: Testing | 65 - 99 mg/dL | [facility] | | | performed at [facility];[address] | | | | | [address];[place] | | | | | [address] | | | + + + + + + + + + + | Performing | Address | City/State/Zipcode | Phone Number | | Organization | | | | + + + + + | [facility] | [address] | [place] [address] | | + + + + + [...] | [facility] | | | performed at [facility], [address] | | LABORATORY | | | [address] [facility], | | | | | [place] [address] | | | + + + + + + + | Specimen | + + | Blood | + + + + + + + | Performing | Address | City/State/Zipcode | Phone Number | | Organization | | | | + + + + + | [facility] | [address] | [place] [address] | [phone] | | LABORATORY | Blvd. | | | + + + + + Type and screen (03/31/2018 6:13 AM) + + + + + | Component | Value | Ref Range | Performed At | + + + + + | ABO/RH(D) | A POSITIVE | | [facility] | + + + + + | ANTIBODY SCREEN | NEGATIVE | | [facility] | + + + + + | ARM BAND NUMBER | [id number] | | [facility] | | | performed at [facility];[address] | | | | | [address];[place], [place] | | | | | [address] | | | + + + + + + + | Specimen | + + | Blood | + + + + + + + | Performing | Address | City/State/Zipcode | Phone Number | | Organization | | | | + + + + + | [facility] | [address] | [place] [address] | | + + + + + Protime-INR (03/31/2018 6:13 AM) + + + + + | Component | Value | Ref Range | Performed At | + + + + + | INR | 1.7Comment: REFERENCE | | [facility] | | | RANGE:0.9 [...] [address];[place] | | | | | [address] | | | + + + + + + + | Specimen | + + | Blood | + + + + + + + | Performing | Address | City/State/Zipcode | Phone Number | | Organization | | | | + + + + + | [facility] | [address] | [place] [address] | | + + + + + Magnesium (03/31/2018 6:13 AM) + + + + + | Component | Value | Ref Range | Performed At | + + + + + | MAGNESIUM | 2.1Comment: Testing | 1.7 - 2.4 mg/dL | [facility] | | | performed at [facility], [address] | | LABORATORY | | | [address], | | | | | [place] [address] | | | + + + + + + + | Specimen | + + | Blood | + + + + + + + | Performing | Address | City/State/Zipcode | Phone Number | | Organization | | | | + + + + + | [facility] | [address] | [place] [address] | [phone] | | LABORATORY | Blvd. | | [...] 7.3 | 6.3 - 8.2 g/dL | [facility] [...] | | | | | performed at [facility], [address] | | | | | [facility], | | | | | [place] [address] | | | + + + + + + + | Specimen | + + | Blood | + + + + + + + | Performing | Address | City/State/Zipcode | Phone Number | | Organization | | | | + + + + + | [facility] | [address] | [place] [address] | [phone] | | LABORATORY | Blvd. | | | + + + + + POCT glucose (03/31/2018 6:07 AM) + + + + + | Component | Value | Ref Range | Performed At | + + + + + | GLUCOSE,POC SCREEN | 89Comment: Testing | 65 - 99 mg/dL | [facility] | | | performed at [facility];[address] | | | | | [address];[place] | | | | | [address] | | | + + + + + + + + + + | Performing | Address | City/State/Zipcode | Phone Number | | Organization | | | | + + + + + | [facility] | [address] | [place] [address] | | + + + + + POCT glucose (03/30/2018 9:12 PM) + + + + + | Component | Value | Ref Range | Performed At | + + + + + | GLUCOSE,POC SCREEN | 77Comment: Testing | 65 - 99 mg/dL | [facility] | | | performed at [facility];[address] | | | | | [address];[place] | | | | | [address] | | | + + + + + + + + + + | Performing | Address | City/State/Zipcode | Phone Number | | Organization | | | | + + + + + | [facility] | [address] | [place] [address] | | + + + + + [...] + + + + | Calculated P [place] | 9 | degrees | [facility] | + + + + + | Calculated R [place] | 53 | degrees | [facility] | + + + + + | Calculated T [place] | 53 | degrees | [facility] | + + + + + | Diagnosis | Normal sinus | | [facility] | | | rhythmNormal ECGNo | [...] | + + + + + | [facility] | [address] | [place] [address] | | + + + + + Blood Culture Set 2 (03/30/2018 6:16 PM) + + + + + | Component | Value | Ref Range | Performed At | + + + + + | Specimen Description | BLOOD | | [facility] | | | | | LABORATORY | + + + + + | SPECIAL REQUESTS | MARK | | [facility] | + + + [...] | + + + + + | [facility] | [address] | [place] [address] | [phone] | | LABORATORY | Blvd. | | | + + + + + | [facility] | [address] | [place] [address] | | + + + + + MRSA by PCR (03/30/2018 5:39 PM) + + + + + | Component | Value | Ref Range | Performed At | + + + + + | SOURCE | NARES(NOSE) | | [facility] | + + + + + | MRSA PCR | NEGATIVEComment: Testing | NEGATIVE | [facility] | | | performed at [facility] [place] | | | | [address];[place], [place] | | | | | [address] | | | + + + + + + + | Specimen | + + | Nasopharyngeal - | | Nares(Nose) | + + + + + + + | Performing | Address | City/State/Zipcode | Phone Number | | Organization | | | | + + + + + | [facility] | [address] | [place] [address] | | + + + + + Troponin I (03/30/2018 5:12 PM) + + + + + | Component | Value | Ref Range | Performed At | + + + + + | TROPONIN I | <0.020Comment: 0.00 to | 0.00 - 0.10 ng/mL | [facility] | | | 0.10 [...] | | | | CRITERIA FOR ACUTE PR | | | | | Testing performed at | | | | | [facility];[place] [address] | | | + + + + + + + + + + | Performing | Address | City/State/Zipcode | Phone Number | | Organization | | | | + + + + + | [facility] | [address] | [place] [address] | | + + + + + Sedimentation Rate (ESR) (03/30/2018 5:12 PM) + + + + + | Component | Value | Ref Range | Performed At | + + + + + | ESR | 67 (H)Comment: Testing | 0 - 20 mm/Hr | [facility] | | | performed at [facility] | [address];[place] | | | | | [address] | | | + + + + + + + | Specimen | + + | Blood | + + + + + + + | Performing | Address | City/State/Zipcode | Phone Number | | Organization | | | | + + + + + | [facility] | [address] | [place] [address] | | + + + + + C-reactive protein (03/30/2018 5:12 PM) + + + + + | Component | Value | Ref Range | Performed At | + + + + + | CRP | 3.1 (H)Comment: Testing | <0.5 mg/dL | [facility] | | | performed at [facility] | | | | | [address];[place], [place] | | | | | [address] | | | + + + + + + + | Specimen | + + | Blood | + + + + + + + | Performing | Address | City/State/Zipcode | Phone Number | | Organization | | | | + + + + + | [facility] | [address] | [place] [address] | | + + + + + aPTT (03/30/2018 5:12 PM) + + + + + | Component | Value | Ref Range | Performed At | + + + + + | APTT | 55 (H)Comment: Testing | 23 - 32 seconds | [facility] | | | performed at [facility] | | | | | [address];[place] | | | | | [address] | | | + + + + + + + | Specimen | + + | Blood | + + + + + + + | Performing | Address | City/State/Zipcode | Phone Number | | Organization | | | | + + + + + | [facility] | [address] | [facility] [place] [address] | | + + + + + Protime (03/30/2018 5:12 PM) + + + + + | Component | Value | Ref Range | Performed At | + + + + + | INR | 3.0Comment: REFERENCE | | [facility] | | | RANGE:0.9 [...] [place];[address] | | [address];[place] | | | | | [address] | | | + + + + + + + | Specimen | + + | Blood | + + + + + + + | Performing | Address | City/State/Zipcode | Phone Number | | Organization | | | | + + + + + | [facility] | [address] | [place] [address] | | + + + + + Comprehensive metabolic panel (03/30/2018 5:12 PM) + + + + + | Component | Value | Ref Range | Performed At | + + + + + | SODIUM | 139 | 135 - 145 mmol/L | [facility] | + + [...] 20 | 8 - 25 mg/dL | [facility] | + + + + + | CREATININE | 0.84 | 0.70 - 1.30 mg/dL | [facility] | + + + + + | BUN/CREAT | 24 | | [facility] | + + + + + | CALCIUM | 9.3 | 8.5 - 10.5 mg/dL | [facility] | + + + + + | TOTAL PROTEIN | 8.0 | 6.3 - 8.2 g/dL | [facility] | + + + + + | Albumin | 3.1 (L) | 3.6 - 5.0 g/dL | [facility] | + + + + + | GLOBULIN | 4.9 | 1.3 - 4.9 g/dL | [facility] | + + + + + | A/G | 0.6 (L) | 1.0 - 2.4 | [facility] | + + + + + | TBIL | 0.6 | 0.1 - 1.5 mg/dL | [facility] | + + + + + | ALK PHOS | 98 | 35 - 115 U/L | [facility] | + + + + + | AST | 19 | 10 - 45 U/L | [facility] | + + + + + | ALT | 29 | 10 - 65 U/L | [facility] | + + + + + | EGFR | >60Comment: GFR <60: | >60 mL/min/1.73m2 | [facility] | | | CHRONIC [...] [address];[place] | | | | | [address] | | | + + + + + + + | Specimen | + + | Blood | + + + + + + + | Performing | Address | City/State/Zipcode | Phone Number | | Organization | | | | + + + + + | [facility] | [address] | [place] [address] | | + + + + + CBC with differential (03/30/2018 5:12 PM) + + + + + | Component | Value | Ref Range | Performed At | + + + + + | WBC | 8.04 | 3.80 - 11.00 K/uL | [facility] | + + + + + | RBC | 4.38 | 4.20 - 5.70 M/uL | [facility] | + + + + + | HGB | 12.8 (L) | 13.2 - 17.0 g/dL | [facility] | + + + + + | HCT | 37.3 (L) | 39.0 - 50.0 % | [facility] | + + + + + | MCV | 85.0 | 80.0 - 100.0 fl | [facility] | + + + + + | MCH | 29.1 | 27.0 - 34.0 pg | [facility] | + + + + + | MCHC | 34.3 | 32.0 - 35.5 g/dL | [facility] | + + + + + | RDW SD | 42.4 | 37 - 53 fl | [facility] | + + + + + | PLT | 255 | 150 - 400 K/uL | [facility] | + + + + + | MPV | 7.2 | fl | [facility] | + + + + + | DIFF TYPE | AUTOMATED | | [facility] | + + + + + | NEUTROPHILS | 73.88 | % | [facility] | + + + + + | LYMPHOCYTES | 16.51 | % | [facility] | + + + + + | MONOCYTES | 7.01 | % | [facility] | + [...] 0.13 | 0.00 - 0.50 K/uL | [facility] | + + + + + | BASOPHILS ABS | 0.08Comment: Testing | 0.00 - 0.10 K/uL | [facility] | | | performed at [facility] | | | | | [address];[place], [place] | | | | | [address] | | | + + + + + + + | Specimen | + + | Blood | + + + + + + + | Performing | Address | City/State/Zipcode | Phone Number | | Organization | | | | + + + + + | [facility] | [address] | [place] [address] | | + + + + + [...] [facility] | [address] | [place] [address] | [phone] | | LABORATORY | [address] 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) | + + | Hypertensive heart disease without heart failure | + + | Unspecified hypertensive heart disease without heart failure | + + | Anemia | + + | Anemia, unspecified | + + Admitting Diagnoses + + | Diagnosis | + + | PVD (peripheral vascular disease) (HCC) | + + | Peripheral vascular disease, [...] | | | + +---+ + +---------+ +-----+-------+---+ | ampicillin-sulbactam (UNASYN) 3 | New Bag | 03/30/2018 | 3 g | 100 | | | g in sodium chloride (IV) 0.9 % | | 17:51 | | mL/hr | | | 100 mL IVPB 3 g, Intravenous, at | | PDT | | | | | 100 mL/hr, Once, 03/30/18 at | | | | | | | 1741, For 1 dose, Indications: | | | | | | | Skin and Soft Tissue Abscess | | | | | | + +---------+ +-----+-------+---+ +---+---+ | | | +---+---+ + +-------+ +-----+-------+---+ | ampicillin-sulbactam (UNASYN) 3 | Given | 03/31/2018 | 3 g | 100 | | | g in sodium chloride (IV) 0.9 % | | 18:43 | | mL/hr | | | 100 mL IVPB 3 g, Intravenous, at | | PDT | | | | | 100 mL/hr, Every 6 Hours, First | | | | | | | dose on [facility] 03/31/18 at 0000, | | | | | | | Indications: Skin and Soft Tissue | | | | | | | Abscess | | | | | | + +-------+ +-----+-------+---+ +-------+ +-----+-------+---+ | Given | 04/01/2018 | [...] PDT | | | | | Starting [facility] 03/31/18 at 1850 | | | [...] | PDT | | | | | (4-6), Starting [facility] 03/31/18 at | | | | [...] 50 mcg 50 mcg, Intravenous, | | 14:47 | | | | | Every 5 Min PRN, Pain, Option One | | PDT | | | | | for pain scale 5-10/10. If no | | | | | | | relief, proceed to option 2., | | | | | | | Starting [facility] 03/31/18 at 1402, PACU | | | | | | + +-------+ +--------+---+---+ +-------+ +--------+---+---+ | Given | 03/31/2018 | 50 mcg | | | | | 15:07 | | | | | | PDT [...] | | | | | (7-), Starting [facility] 03/31/18 at | | | | [...] | gabapentin (NEURONTIN) capsule | Given | 04/03/2018 | 100 mg | | | | 100 mg 100 mg, Oral, 3 Times | | 13:47 | | | | | Daily, First dose on Wed04/01/18 | | PDT | | | | | at 1400 | | | | | | + +-------+ +--------+---+---+ +-------+ +--------+---+---+ | Given | 04/03/2018 | 100 mg | | | | | 20:30 | | | | | | PDT | | | | +-------+ +--------+---+---+ | Given | 04/04/2018 | 100 mg | | | | | 05:14 | | | | | | PDT | | | | +-------+ +--------+---+---+ +---+---+ | | | +---+---+ + +-------+ +--------+---+---+ | gabapentin (NEURONTIN) capsule | Given | 04/04/2018 | 300 mg | | | | 300 mg 300 mg, Oral, 3 Times | | 13:21 | | | | | Daily, First dose on Wed04/04/18 | | PDT | | | | | at 1400 | | | | | | + +-------+ +--------+---+---+ +---+---+ | | | +---+---+ + +-------+ +------+---+---+ | glimepiride (AMARYL) tablet 2 | Given | 04/02/2018 | 2 mg | | | | mg 2 mg, Oral, Every Morning, | | 08:29 | | | | | First dose on [facility] 03/31/18 at 0900 | | PDT | [...] + +---+---+ | HYDROcodone-acetaminophen | Given | 03/30/2018 | 1 tablet | | | | (NORCO) 10-325 MG per tablet 1 | | 22:06 | | | | | tablet 1 tablet, Oral, Every 4 | | PDT | | | | | Hours PRN, Moderate Pain (4-6), | | | | | | | Severe Pain (7-10), Starting Wed | | | | | | | 03/30/18 at 2006 | | | | | | + +-------+ + +---+---+ +---+---+ | | | +---+---+ + +-------+ + +---+---+ | HYDROcodone-acetaminophen | Given | 03/31/2018 | 1 tablet | | | | (NORCO) 10-325 MG per tablet 1 | | 18:30 | | | | | tablet 1 tablet, Oral, Every 4 | | PDT | | | | | Hours PRN, Severe Pain (7-10), | | | | | | | Starting [facility] 03/31/18 at 1633 | | | | | | + +-------+ + +---+---+ +-------+ + +---+---+ | Given | 04/01/2018 | 1 tablet | | | | | 05:57 | | | | | | PDT | | | | +-------+ + +---+---+ | Given | 04/01/2018 | 1 tablet | | | | | 10:08 | | | | | | PDT [...] | +---+---+ + +-------+ +--------+---+---+ | lidocaine viscous 2 % 10 mL, | Given | 03/30/2018 | 40 mLs | | | | aluminum-magnesium | | 17:43 | | | | | hydroxide-simethicone (MAALOX) | | PDT | | | | | 200-200-20 MG/5ML 30 mL solution | | | | | | | 40 mL, Oral, Once, 03/30/18 at | | | | | | | 1743, For 1 dose | | | | [...] | | | | | Constipation, Starting [facility] 03/31/18 | | | | | [...] + +-------+ +------+---+---+ | morphine (PF) injection 2 mg 2 | Given | 03/31/2018 | 2 mg | | | | mg, Intravenous, Every 5 Min | | 15:21 | | | | | PRN, Option Three for pain scale | | PDT | | | | | -12/07. If no relief, contact | | | | | | | anesthesia provider., Starting | | | | | | | [facility] 03/31/18 at 1402, PACU | | | | | | + +-------+ +------+---+---+ +-------+ +------+---+---+ | Given | 03/31/2018 | 2 mg | | | | | 15:45 | | | | | | PDT | | | | +-------+ +------+---+---+ | Given | 03/31/2018 | 2 mg | | | | | 16:08 | | | | | | PDT | | | | +-------+ +------+---+---+ +---+---+ | | | +---+---+ + +-------+ +------+---+---+ | morphine (PF) injection 4 mg 4 | Given | 03/31/2018 | 4 mg | | | | mg, Intravenous, Every 5 Min | | 14:50 | | | | | PRN, Option Three for pain scale | | PDT | | | | | 5-06/08. If no relief, contact | | | | | | | anesthesia provider., Starting | | | | | | | [facility] 03/31/18 at 1402, PACU | | | | | | + +-------+ +------+---+---+ +---+---+ | | | +---+---+ + +-------+ + +---+---+ | multivitamin with minerals | Given | 04/02/2018 | 1 tablet | | | | tablet 1 tablet 1 tablet, Oral, | | 08:30 | | | | | Daily, First dose on Wed04/01/18 | | PDT | | | | [...] PRN, Nausea, Vomiting, | | | Starting [facility] 03/30/18 at 2006 | | + +---+ | | | + +---+ | ondansetron (ZOFRAN) injection | | | 4 mg 4 mg, Intravenous, Every 6 | | | Hours PRN, Nausea, Vomiting, | | | Starting [facility] 03/31/18 at 1633 | | + +---+ | | | + +---+ | ondansetron (ZOFRAN-ODT) | | | disintegrating tablet 4 mg 4 mg, | | | Oral, Every 6 Hours PRN, Nausea, | | | Vomiting, Starting [facility] 03/30/18 at | | | 2006 | | + +---+ | | | + +---+ | ondansetron (ZOFRAN-ODT) | | | disintegrating tablet 4 mg 4 mg, | | | Oral, Every 6 Hours PRN, Nausea, | | | Vomiting, Starting [facility] 03/31/18 at | | | 1633 [...] | | Pain, 6 to 7, Starting 04/01/18 | | | | | | | [...] | + +---+ + +-------+ +-------+---+---+ | phytonadione (MEPHYTON) tablet | Given | 03/30/2018 | 10 mg | | | | 10 mg 10 mg, Oral, Once, Wed | | 18:45 | | | | | 03/30/18 at 1752, For 1 dose | | PDT | | | | + +-------+ +-------+---+---+ +---+---+ | | | +---+---+ + +-------+ +-------+---+---+ | phytonadione (MEPHYTON) tablet | Given | 03/31/2018 | 10 mg | | | | 10 mg 10 mg, Oral, Once, [facility] | | 10:37 | | | | | 03/31/18 at 1030, For 1 dose | | PDT | | | | + +-------+ +-------+---+---+ +---+---+ | | | +---+---+ + +-------+ +------+---+---+ | polyethylene glycol (GLYCOLAX) | Given | 04/02/2018 | 17 g | | | | packet 17 g 17 g, Oral, Daily | | 08:29 | | | | | PRN, Constipation, Starting Wed | | PDT | | [...] +---+---+ + +-------+ +--------+---+---+ | sodium chloride (PF) 0.9 % | Given | 04/01/2018 | 10 mLs | | | | flush 10 mL 10 mL, Intravenous, | | 20:30 | | | | | Every 8 Hours, First dose on Wed | | PDT | | | | | 03/30/18 at 2030 | | | | | | + +-------+ +--------+---+---+ +-------+ +--------+---+---+ | Given | 04/02/2018 | 10 mLs | | | | | 04:18 | | | | | | PDT | | | | +-------+ +--------+---+---+ | Given | 04/02/2018 | 10 mLs | | | | | 21:00 | | | | | | PDT | | | | +-------+ +--------+---+---+ +---+---+ | | | +---+---+ + +-------+ +--------+---+---+ | sodium chloride 0.9 % flush 10 | Given | 03/30/2018 | 10 mLs | | | | mL 10 mL, Intravenous, Every 8 | | 17:44 | | | | | Hours, First dose on Wed03/30/18 | | PDT | | | | | at 1650 | | | | | | + +-------+ +--------+---+---+ +---+---+ | | | +---+---+ + +---------+ +---------+ +---+ | sodium chloride 0.9 % infusion | New Bag | 03/31/2018 | 500 mLs | 30 mL/hr | | | at 30 mL/hr, Continuous PRN, | | 18:43 | | | | | Starting [facility] 03/31/18 at 1843, For | | PDT | | | | | 1 dose | | | | | | + +---------+ +---------+ +---+ +---+---+ | | | +---+---+ in this encounter
--- OUTSIDE RECORDS SUMMARY | ~2018-04-10 | XMS | Encounter Summary ---
Demographics + + + | Address | [address] | | | [place] [address] | + + + | Home Phone | | + + + | Preferred Language | Unknown | + + + | Marital Status | Single | + + + | Islam Affiliation | Unknown | + + + | Race | Unknown | + + + | Ethnic Group | Unknown | + + + Author + + + | Author | [facility] [employer] [facility] | + + + | Organization | [facility] [employer] [facility] | + + + | Address | Unknown | + + + | Phone | Unavailable | + + + Support + + +---------+ + | Name | Relationship | Address | Phone | + + +---------+ + | Megan Walker | ECON | Unknown | | + + +---------+ + Care Team Providers + +------+ + | Care Olive Grower Name | Role | Phone | + +------+ + | Nicholas Claire MD | PCP | | + +------+ + Encounter Details +--------+ + + + + | Date | Type | Department | Care Team | Description | +--------+ + + + + | 03/16/ | Orders Only | [facility] | Yesenia Witt, | Occlusion of right | | 2017 | | Vascular Surgery | RN | femoral-popliteal | | | | [address] | | bypass graft, | | | | [address] [place] | | initial encounter | | | | [address] | | ([facility]) (Primary Dx) | | | | [phone] | | | +--------+ + + + [...] [place] | | | | | | [address] | | | | | | | [...] initial encounter | | | | | ([facility]) | | + +--------+ + + as of this encounter Visit Diagnoses + + | Diagnosis | + + | Occlusion of right femoral-popliteal bypass graft, initial encounter ([facility]) - Primary | + +
--- OUTSIDE RECORDS SUMMARY | ~2018-04-10 | XMS | Encounter Summary ---
Demographics + + + | Address | [address] | | | [place] [address] | + + + | Home Phone | | + + + | Preferred Language | Unknown | + + + | Marital Status | Single | + + + | Jainism Affiliation | Unknown | + + + | Race | Unknown | + + + | Ethnic Group | Unknown | + + + Author + + + | Author | [facility] [employer] [facility] | + + + | Organization | [facility] | + + + | Address | Unknown | + + + | Phone | Unavailable | + + + Support + + +---------+ + | Name | Relationship | Address | Phone | + + +---------+ + | Megan Walker | ECON | Unknown | | + + +---------+ + Care Team Providers + +------+ + | Care Gear Shaper Name | Role | Phone | + +------+ + | Nicholas Claire MD | PCP | | + +------+ + Encounter Details +--------+ + + + + | Date | Type | Department | Care Team | Description | +--------+ + + + + | 03/11/ | Procedure | [facility] | | | | 2018 | [facility] | [address] | | | | | | Floor [place] | | | | | | [address] | | | | | | [place] [address] | | | | | | [phone] | | | +--------+ + + + [...]
--- OUTSIDE RECORDS SUMMARY | ~2018-04-10 | XMS | Encounter Summary ---
Demographics + + + | Address | [address] | | | [place] [address] | + + + | Home Phone | | + + + | Preferred Language | Unknown | + + + | Marital Status | Single | + + + | Mu-Ism Affiliation | Unknown | + + + | Race | Unknown | + + + | Ethnic Group | Unknown | + + + Author + + + | Author | [facility] [employer] | + + + | Organization | [facility] [employer] | + + + | Address | Unknown | + + + | Phone | Unavailable | + + + Support + + +---------+ + | Name | Relationship | Address | Phone | + + +---------+ + | Megan Walker | ECON | Unknown | | + + +---------+ + Care Team Providers + +------+ + | Care Principal Bioinformatics Specialist Name | Role | Phone | [...] + + | 02/23/ | Surgery | [facility] | Johan Mueller MD | BYPASS GRAFT - | | 2018 | | [facility] | [address] [place] | FEMORAL - TIBIAL | | | | Operating Room [address] | [place], [place] | | | | | [address] | [address] | | | | | [place] [address] | | | | | | [phone] | | | +--------+---------+ + + + [...] note may be different from the original. [facility] Service: Hospitalist Physician Discharge Summary [...] seen by our vascular surgery here at [facility] and by podiatry. Two days ago, there were concerns of an infected ulcer on the second toe, right foot, in the distal phalanx, for which he underwent surgical intervention and subsequent am putation on 02/19, two days ago. The patient refers that there were no surgical complicati ons, and when he went today for a followup with his physical education aide, when they took off the browning ges [...] l toes. Patient underwent R. Popliteal to GLASS DESIGNER bypass and reversed OSV by Dr. Mueller, [...] - TIBIAL; Surgeon: Johan Mueller MD; Location: [facility]; Service: Vascular; Laterality: Right; right popliteal to posterior tibial artery by pass with vein harvest FOOT AMPUTATION Right 02/25/2018 Procedure: FOREFOOT - AMPUTATION; Surgeon: Amilcar Garcia DPM; Location: [facility] OR; ervice: Podiatry; Laterality: Right; Right [...] Right Result Date: 02/22/2018 1. The proximal GLASS DESIGNER appears occluded with distal reconstitution via collaterals. [...] up: Johan Mueller MD [address] [facility] [id number] Schedule an appointment as soon as possible for a visit in 2 weeks For wound re-check Nicholas Claire MD [address] [facility] [address] In 3 days Medication List START [...] Your Medications These medications were sent to [facility] [address] [place] [id number] [place] [id number] [place] [address] [place] [address] acetaminophen 325 MG tablet amoxicillin-clavulanate 875-125 MG [...] may be different from t long original. [facility] Service: Vascular Surgery Progress Note Hospital Day: 7 ASSESSMENT & PLAN: 57 yo male patient s/p R popliteal to GLASS DESIGNER bypass with reversed GSV. - Continue ASA/Plavix. [...] may be different from t long original. [facility] Service: Vascular Surgery Progress Note Hospital Day: 6 ASSESSMENT & PLAN: 57 yo male patient s/p R popliteal to GLASS DESIGNER bypass with reversed GSV. - Continue ASA/Plavix. [...] limb ischemia PVD (peripheral vascular disease) ([facility]) Essential hypertension DM (diabetes mellitus) ([facility]) Code Status: Full Code Juany Padilla MD 7:22 AM Juany Padilla MD - 02/27/2018 7:58 AM PDTFormatting of this note may be different from t long original. [facility] Service: Vascular Surgery Progress Note Hospital Day: 5 ASSESSMENT & PLAN: 57 yo male patient s/p R popliteal to GLASS DESIGNER bypass with reversed GSV. - Continue ASA/Plavix. [...] (HCC) Essential hypertension DM (diabetes mellitus) ([facility]) Code Status: Full Code Juany Padilla MD 7:58 AM Jojo Dudley MD - 02/27/2018 5:15 AM PDTFormatting of this note may be different from the original. [facility] Service: Hospitalist Progress Note Hospital Day: LOS: 5 days SUBJECTIVE Patient Summary: From [facility] Dr. Peña 02/21/18 The patient is [...] seen by our vascular surgery here at [facility] and by podiatry. Two days ago, there were concerns of an infected ulcer on the second toe, right foot, in the distal phalanx, for which he underwent surgical intervention and subsequent amp utation on 02/19, two days ago. The patient refers that there were no surgical complication s, and when he went today for a followup with his physical education aide, when they took off the bandage s [...] ulcer with necrosis of bone, right ([facility]) PVD (peripheral vascular disease) ([facility]) Essential hypertension DM (diabetes mellitus) ([facility]) ASSESSMENT & PLAN -Right foot [...] 02/23/18. POD#4 U/S shows 1. The proximal GLASS DESIGNER appears occluded with distal reconstitution via collaterals. [...] may be different from t long original. [facility] Service: Vascular Surgery Progress Note Hospital Day: 4 ASSESSMENT & PLAN: 57 yo male patient s/p R popliteal to GLASS DESIGNER bypass with reversed GSV. - Continue ASA/Plavix. [...] limb ischemia PVD (peripheral vascular disease) ([facility]) Essential hypertension DM (diabetes mellitus) ([facility]) Code Status: Full Code Juany Padilla MD 12:43 PM Amilcar Garcia DPM - 02/26/2018 12:08 PM PDTFormatting of this note may be different from t long original. [facility] Service: Podiatry Progress Note Hospital [...] right (HCC) PVD (peripheral vascular disease) ([facility]) Essential hypertension DM (diabetes mellitus) ([facility]) ASSESSMENT & PLAN Gangrene Peripheral [...] may be differ ent from the original. [facility] Service: Hospitalist Progress Note Hospital Day: LOS: 4 days SUBJECTIVE Patient Summary: From [facility] Dr. Peña 02/21/18 The patient is [...] seen by our vascular surgery here at [facility] and by podiatry. Two days ago, there were concerns of an infected ulcer on the second toe, right foot, in the distal phalanx, for which he underwent surgical intervention and subsequent amp utation on 02/19, two days ago. The patient refers that there were no surgical complication s, and when he went today for a followup with his physical education aide, when they took off the bandage s [...] ulcer with necrosis of bone, right ([facility]) PVD (peripheral vascular disease) (HCC) Essential hypertension DM (diabetes mellitus) ([facility]) ASSESSMENT & PLAN -Right foot [...] 02/23/18. POD#3 U/S shows 1. The proximal GLASS DESIGNER appears occluded with distal reconstitution via collaterals. [...] 111.5ml/min meds reviewed pharma cy will follow [facility] 2151MoPuja lopez, [facility] - 02/25/2018 [...] note may be different from the original. [facility] Service: Hospitalist Progress Note Hospital Day: LOS: 3 days SUBJECTIVE Patient Summary: From [facility] Dr. Peña 02/21/18 The patient is [...] seen by our vascular surgery here at [facility] and by podiatry. Two days ago, there were concerns of an infected ulcer on the second toe, right foot, in the distal phalanx, for which he underwent surgical intervention and subsequent amp utation on 02/19, two days ago. The patient refers that there were no surgical complication s, and when he went today for a followup with his physical education aide, when they took off the bandage s [...] sodium chloride (IV) 110 mL/hr at 02/24/18 6403 PRN Medications acetaminophen OR acetaminophen, dextrose, dextrose, [...] ulcer with necrosis of bone, right ([facility]) PVD (peripheral vascular disease) ([facility]) Essential hypertension DM (diabetes mellitus) ([facility]) ASSESSMENT & PLAN -Right foot [...] 02/23/18. POD#2 U/S shows 1. The proximal GLASS DESIGNER appears occluded with distal reconstitution via collaterals. [...] note may be different from the original. [facility] Service: Vascular Surgery Progress Note [...] (HCC) Essential hypertension DM (diabetes mellitus) ([facility]) ASSESSMENT & PLAN PLAN PER [...] note may be different from the original. [facility] Service: Vascular Surgery Progress Note [...] well perfused. He was ev aluated by physical education aide, Dr. Garcia who will proceed with transmetatarsal [...] ulcer with necrosis of bone, right ([facility]) PVD (peripheral vascular disease) ([facility]) Essential hypertension DM (diabetes mellitus) ([facility]) ASSESSMENT & PLAN Critical limb [...] can be removed at [facility] if patient is discharged. Physical therapy and weight bearing status per Podiatry recom mendation. The patient will most likely be non weight bearing on his right foot until TMA co mpletely heals up. Encourage incentive spirometry breathing exercise. Continue pain manageme nt. Disposition: Continue medical management Code Status: Full Code Johan Mueller MD 02/25/2018Puja Aquino [facility] - 02/24/2018 [...] may be different from t long original. [facility] Service: Podiatry Progress Note Hospital [...] ulcer with necrosis of bone, right ([facility]) PVD (peripheral vascular disease) ([facility]) Essential hypertension DM (diabetes mellitus) ([facility]) ASSESSMENT & PLAN Gangrene Peripheral [...] may be differ ent from the original. [facility] Service: Hospitalist Progress Note Hospital Day: LOS: 2 days SUBJECTIVE Patient Summary: From [facility] Dr. Peña 02/21/18 The patient is [...] seen by our vascular surgery here at [facility] and by podiatry. Two days ago, there were concerns of an infected ulcer on the second toe, right foot, in the distal phalanx, for which he underwent surgical intervention and subsequent amp utation on 02/19, two days ago. The patient refers that there were no surgical complication s, and when he went today for a followup with his physical education aide, when they took off the bandage s [...] ulcer with necrosis of bone, right ([facility]) PVD (peripheral vascular disease) ([facility]) Essential hypertension DM (diabetes mellitus) ([facility]) ASSESSMENT & PLAN -Right foot [...] 02/23/18. POD#1 U/S shows 1. The proximal GLASS DESIGNER appears occluded with distal reconstitution via collaterals. [...] note may be different from the original. [facility] Service: Hospitalist Progress Note Hospital Day: LOS: 1 day SUBJECTIVE Patient Summary: From [facility] Dr. Peña 02/21/18 The patient is [...] seen by our vascular surgery here at [facility] and by podiatry. Two days ago, there were concerns of an infected ulcer on the second toe, right foot, in the distal phalanx, for which he underwent surgical intervention and subsequent amp utation on 02/19, two days ago. The patient refers that there were no surgical complication s, and when he went today for a followup with his physical education aide, when they took off the bandage s [...] right (HCC) PVD (peripheral vascular disease) ([facility]) Essential hypertension DM (diabetes mellitus) ([facility]) ASSESSMENT & PLAN -Right foot [...] on 02/22-. U/S shows 1. The proximal GLASS DESIGNER appears occluded with distal reconstitution via collaterals. [...] note may be different from the original. [facility] Service: Hospitalist Progress Note Hospital [...] seen by our vascular surgery here at [facility] and by podiatry. Two days ago, there were concerns of an infected ulcer on the second toe, right foot, in the distal phalanx, for which he underwent surgical intervention and subsequent amp utation on 02/19, two days ago. The patient refers that there were no surgical complication s, and when he went today for a followup with his physical education aide, when they took off the bandage s [...] ulcer with necrosis of bone, right ([facility]) PVD (peripheral vascular disease) ([facility]) Essential hypertension DM (diabetes mellitus) ([facility]) ASSESSMENT & PLAN -Right foot [...] vascular interventions. U/S shows 1. The proximal GLASS DESIGNER appears occluded with distal reconstitution via collaterals. [...] [place] | | | | | | [address] | | | | | | | [...] | + +--------+ + + + | [facility] CARD PANEL W/O | STAT | 02/21/2018 [...] Testing | 65 - 99 mg/dL | [facility] | | | performed at [facility];[address] | | | | | [address];[place] | | | | | [address] | | | + + + + + + + + + + | Performing | Address | City/State/Zipcode | Phone Number | | Organization | | | | + + + + + | [facility] | [address] | [place] [address] | | + + + + + POCT glucose (03/01/2018 5:26 AM) + + + + + | Component | Value | Ref Range | Performed At | + + + + + | GLUCOSE,POC SCREEN | 147 (H)Comment: Testing | 65 - 99 mg/dL | [facility] | | | performed at [facility];[address] | | | | | [address];[place], [place] | | | | | [address] | | | + + + + + + + + + + | Performing | Address | City/State/Zipcode | Phone Number | | Organization | | | | + + + + + | [facility] | [address] | [place] [address] | | + + + + + [...] | [facility] | | | performed at [facility], [address] | | LABORATORY | | | [address], | | | | | [place] [address] | | | + + + + + + + | Specimen | + + | Blood | + + + + + + + | Performing | Address | City/State/Zipcode | Phone Number | | Organization | | | | + + + + + | [facility] | [address] | [place] [address] | [phone] | | LABORATORY | [address] | | [...] | | | | | performed at [facility], [address] | | | | | [facility], | | | | | [place] [address] | | | + + + + + + + | Specimen | + + | Blood | + + + + + + + | Performing | Address | City/State/Zipcode | Phone Number | | Organization | | | | + + + + + | [facility] | [address] | [place] [address] | [phone] | | LABORATORY | [address] | | | + + + + + POCT glucose (02/28/2018 9:04 PM) + + + + + | Component | Value | Ref Range | Performed At | + + + + + | GLUCOSE,POC SCREEN | 253 (H)Comment: Testing | 65 - 99 mg/dL | [facility] | | | performed at [facility];[address] | | | | | [address];[place], [place] | | | | | [address] | | | + + + + + + + + + + | Performing | Address | City/State/Zipcode | Phone Number | | Organization | | | | + + + + + | [facility] | [address] | [place] [address] | | + + + + + POCT glucose (02/28/2018 5:08 PM) + + + + + | Component | Value | Ref Range | Performed At | + + + + + | GLUCOSE,POC SCREEN | 223 (H)Comment: Testing | 65 - 99 mg/dL | [facility] | | | performed at [facility];[address] | | | | | [address];[place] | | | | | [address] | | | + + + + + + + + + + | Performing | Address | City/State/Zipcode | Phone Number | | Organization | | | | + + + + + | [facility] | [address] | [place] [address] | | + + + + + POCT glucose (02/28/2018 12:01 PM) + + + + + | Component | Value | Ref Range | Performed At | + + + + + | GLUCOSE,POC SCREEN | 186 (H)Comment: Testing | 65 - 99 mg/dL | [facility] | | | performed at [facility];[address] | | | | | [address];[place] | | | | | [address] | | | + + + + + + + + + + | Performing | Address | City/State/Zipcode | Phone Number | | Organization | | | | + + + + + | [facility] | [address] | [place] [address] | | + + + + + [...] | | | | | [place] [address] | | | + + + + + + + | Specimen | + + | Blood | + + + + + + + | Performing | Address | City/State/Zipcode | Phone Number | | Organization | | | | + + + + + | [facility] | [address] | [place] [address] | [phone] | | LABORATORY | [address] | | [...] the | | | | | MDRD IDIN traceable | | | | | equation.Testing | | | | | performed at [facility], [address] | | | | | [facility], | | | | | [place] [address] | | | + + + + + + + | Specimen | + + | Blood | + + + + + + + | Performing | Address | City/State/Zipcode | Phone Number | | Organization | | | | + + + + + | [facility] | [address] | [place] [address] | [phone] | | LABORATORY | [address] | | | + + + + + POCT glucose (02/28/2018 5:05 AM) + + + + + | Component | Value | Ref Range | Performed At | + + + + + | GLUCOSE,POC SCREEN | 178 (H)Comment: Testing | 65 - 99 mg/dL | [facility] | | | performed at [facility];[address] | | | | | [address];[place] | | | | | [address] | | | + + + + + + + + + + | Performing | Address | City/State/Zipcode | Phone Number | | Organization | | | | + + + + + | [facility] | [address] | [place] [address] | | + + + + + [...] | bone has a deep red discoloration. Clinical Documentation Consultant sections are | | | submitted in [...] | | | preparation was performed by [facility], [facility] | | | [address] [address] (Medical | | | Director: Ha Couch M.D.; [facility]#: [id number]). | | | Diagnostician: Ha Couch MD Pathologist Electronically | | | Signed 03/01/2018 | | + + + + +---------+ + + | Performing | Address | City/State/Zipcode | Phone Number | | Organization | | | | + +---------+ + + | [facility] | | | | + +---------+ + + POCT glucose (02/27/2018 8:29 PM) + + + + + | Component | Value | Ref Range | Performed At | + + + + + | GLUCOSE,POC SCREEN | 262 (H)Comment: Testing | 65 - 99 mg/dL | [facility] | | | performed at [facility];[address] | | | | | [facility];[place], [place] | | | | | [address] | | | + + + + + + + + + + | Performing | Address | City/State/Zipcode | Phone Number | | Organization | | | | + + + + + | [facility] | [address] | [place] [address] | | + + + + + POCT glucose (02/27/2018 4:19 PM) + + + + + | Component | Value | Ref Range | Performed At | + + + + + | GLUCOSE,POC SCREEN | 189 (H)Comment: Testing | 65 - 99 mg/dL | [facility] | | | performed at [facility];[address] | | | | | [address];[place] | | | | | [address] | | | + + + + + + + + + + | Performing | Address | City/State/Zipcode | Phone Number | | Organization | | | | + + + + + | [facility] | [address] | [facility] [address] | | + + + + + POCT glucose (02/27/2018 11:02 AM) + + + + + | Component | Value | Ref Range | Performed At | + + + + + | GLUCOSE,POC SCREEN | 200 (H)Comment: Testing | 65 - 99 mg/dL | [facility] | | | performed at [facility];[address] | | | | | [address];[place] | | | | | [address] | | | + + + + + + + + + + | Performing | Address | City/State/Zipcode | Phone Number | | Organization | | | | + + + + + | [facility] | [address] | [place] [address] | | + + + + + POCT glucose (02/27/2018 5:17 AM) + + + + + | Component | Value | Ref Range | Performed At | + + + + + | GLUCOSE,POC SCREEN | 159 (H)Comment: Testing | 65 - 99 mg/dL | [facility] | | | performed at [facility];[address] | | | | | [address];[place] | | | | | [address] | | | + + + + + + + + + + | Performing | Address | City/State/Zipcode | Phone Number | | Organization | | | | + + + + + | [facility] | [address] | [place] [address] | | + + + + + [...] | [facility] | | | performed at [facility], [address] | | LABORATORY | | | [address], | | | | | [place] [address] | | | + + + + + + + | Specimen | + + | Blood | + + + + + + + | Performing | Address | City/State/Zipcode | Phone Number | | Organization | | | | + + + + + | [facility] | [address] | [place] [address] | [phone] | | LABORATORY | [address] | | [...] >60Comment: GFR <60: | >60 mL/min/1.73m2 | [facility] | | | CHRONIC KIDNEY DISEASE, [...] | | | | | performed at [facility], [address] | | | | | [facility], | | | | | [place] [address] | | | + + + + + + + | Specimen | + + | Blood | + + + + + + + | Performing | Address | City/State/Zipcode | Phone Number | | Organization | | | | + + + + + | [facility] | [address] [place] [address] | [place] [address] | [phone] | | LABORATORY | [address] | | | + + + + + POCT glucose (02/26/2018 9:06 PM) + + + + + | Component | Value | Ref Range | Performed At | + + + + + | GLUCOSE,POC SCREEN | 213 (H)Comment: Testing | 65 - 99 mg/dL | [facility] | | | performed at [facility];[address] | | | | | [address];[place] | | | | | [address] | | | + + + + + + + + + + | Performing | Address | City/State/Zipcode | Phone Number | | Organization | | | | + + + + + | [facility] | [address] | [place] [address] | | + + + + + POCT glucose (02/26/2018 5:00 PM) + + + + + | Component | Value | Ref Range | Performed At | + + + + + | GLUCOSE,POC SCREEN | 229 (H)Comment: Testing | 65 - 99 mg/dL | [facility] | | | performed at [facility];[address] | | | | | [address];[place] | | | | | [address] | | | + + + + + + + + + + | Performing | Address | City/State/Zipcode | Phone Number | | Organization | | | | + + + + + | [facility] | [address] | [place] [address] | | + + + + + POCT glucose (02/26/2018 11:04 AM) + + + + + | Component | Value | Ref Range | Performed At | + + + + + | GLUCOSE,POC SCREEN | 292 (H)Comment: Testing | 65 - 99 mg/dL | [facility] | | | performed at [facility];[address] | | | | | [address];[place] | | | | | [address] | | | + + + + + + + + + + | Performing | Address | City/State/Zipcode | Phone Number | | Organization | | | | + + + + + | [facility] | [address] | [place] [address] | | + + + + + POCT glucose (02/26/2018 5:18 AM) + + + + + | Component | Value | Ref Range | Performed At | + + + + + | GLUCOSE,POC SCREEN | 216 (H)Comment: Testing | 65 - 99 mg/dL | [facility] | | | performed at [facility];[address] | | | | | [address];[place] | | | | | [address] | | | + + + + + + + + + + | Performing | Address | City/State/Zipcode | Phone Number | | Organization | | | | + + + + + | [facility] | [address] | [place] [address] | | + + + + + [...] | | | | TCL, [address] [facility] | | | | | [place] | | | | | [address] | | | + + + + + + + | Specimen | + + | Blood | + + + + + + + | Performing | Address | City/State/Zipcode | Phone Number | | Organization | | | | + + + + + | [facility] | [address] | [place] [address] | [phone] | | LABORATORY | [address] | | [...] 0.9 | 0.70 - 1.30 mg/dL | [facility] | | | | | LABORATORY | + + + + + | BUN/CREAT | 18 | | [facility] | | | | | LABORATORY | + + + + + | CALCIUM | 8.7 | 8.5 - 10.5 mg/dL | [facility] [facility] | | | | | LABORATORY | + + + + + | EGFR | >60Comment: GFR <60: | >60 mL/min/1.73m2 | [facility] | | | CHRONIC KIDNEY DISEASE, [...] | | | | | performed at [facility], [address] | | | | | [facility], | | | | | [place] [address] | | | + + + + + + + | Specimen | + + | Blood | + + + + + + + | Performing | Address | City/State/Zipcode | Phone Number | | Organization | | | | + + + + + | [facility] | [address] | [place] [address] | [phone] | | LABORATORY | [place] | | | + + + + + POCT glucose (02/25/2018 9:46 PM) + + + + + | Component | Value | Ref Range | Performed At | + + + + + | GLUCOSE,POC SCREEN | 190 (H)Comment: Testing | 65 - 99 mg/dL | [facility] | | | performed at [facility];[address] | | | | | [address];[place] | | | | | [address] | | | + + + + + + + + + + | Performing | Address | City/State/Zipcode | Phone Number | | Organization | | | | + + + + + | [facility] | [address] | [place] [address] | | + + + + + POCT glucose (02/25/2018 8:24 PM) + + + + + | Component | Value | Ref Range | Performed At | + + + + + | GLUCOSE,POC SCREEN | 207 (H)Comment: Testing | 65 - 99 mg/dL | [facility] | | | performed at [facility];[address] | | | | | [address];[place] | | | | | [address] | | | + + + + + + + + + + | Performing | Address | City/State/Zipcode | Phone Number | | Organization | | | | + + + + + | [facility] | [address] | [place] [address] | | + + + + + POCT glucose (02/25/2018 5:22 PM) + + + + + | Component | Value | Ref Range | Performed At | + + + + + | GLUCOSE,POC SCREEN | 195 (H)Comment: Testing | 65 - 99 mg/dL | [facility] | | | performed at [facility];[address] | | | | | [address];[place] | | | | | [address] | | | + + + + + + + + + + | Performing | Address | City/State/Zipcode | Phone Number | | Organization | | | | + + + + + | [facility] | [address] | [place] [address] | | + + + + + POCT glucose (02/25/2018 4:55 PM) + + + + + | Component | Value | Ref Range | Performed At | + + + + + | GLUCOSE,POC SCREEN | 176 (H)Comment: Testing | 65 - 99 mg/dL | [facility] | | | performed at [facility];[address] | | | | | [address];[place] | | | | | [address] | | | + + + + + + + + + + | Performing | Address | City/State/Zipcode | Phone Number | | Organization | | | | + + + + + | [facility] | [address] | [place] [address] | | + + + + + POCT glucose (02/25/2018 11:27 AM) + + + + + | Component | Value | Ref Range | Performed At | + + + + + | GLUCOSE,POC SCREEN | 203 (H)Comment: Testing | 65 - 99 mg/dL | [facility] | | | performed at [facility];[address] | | | | | [address];[place] | | | | | [address] | | | + + + + + + + + + + | Performing | Address | City/State/Zipcode | Phone Number | | Organization | | | | + + + + + | [facility] | [address] | [place] [address] | | + + + + + Vancomycin, trough (02/25/2018 8:35 AM) + + + + + | Component | Value | Ref Range | Performed At | + + + + + | VANCOMYCIN,TROUGH | 18.6Comment: 15 to 20 | 10 - 20 ug/mL | [facility] | | | ug/mL for meningitis, | | | | | osteomyelitis, | | | | | endocarditis, sepsis, or | | | | | healthcare associated | | | | | pneumonia, or an MODESTA | | | | | equal to or greater than | | | | | 1.0 ug/mLTesting | | | | | performed at [facility] | | | | | [address];[place], [place] | | | | | [address] | | | + + + + + + + + + + | Performing | Address | City/State/Zipcode | Phone Number | | Organization | | | | + + + + + | [facility] | [address] | [place] [address] | | + + + + + CBC w/auto diff (reflex to manual) (02/25/2018 8:35 AM) + + + + + | Component | Value | Ref Range | Performed At | + + + + + | WBC | 12.16 (H) | 3.80 - 11.00 K/uL | [facility] | + + + + + | RBC | 3.78 (L) | 4.20 - 5.70 M/uL | [facility] | + + + + + | HGB | 11.6 (L) | 13.2 - 17.0 g/dL | [facility] | + + + + + | HCT | 33.6 (L) | 39.0 - 50.0 % | [facility] | + + + + + | MCV | 88.8 | 80.0 - 100.0 fl | [facility] | + + + + + | MCH | 30.6 | 27.0 - 34.0 pg | [facility] | + + + + + | MCHC | 34.4 | 32.0 - 35.5 g/dL | [facility] | + + + + + | RDW SD | 40.7 | 37 - 53 fl | [facility] | + + + + + | PLT | 274 | 150 - 400 K/uL | [facility] | + + + + + | MPV | 7.2 | fl | [facility] | + + + + + | DIFF TYPE | AUTOMATED | | [facility] | + + + + + [...] | RBC AND PLT MORPHOLOGY | | [facility] | | | APPEAR NORMAL | | | + + + + + | Diff Comment | SLIDE SCANNED, AGREES | | [facility] | | | WITH AUTOMATED | | | | | RESULTS.Comment: Testing | | | | | performed at [facility];[address] | | | | | [address];[place] | | | | | [address] | | | + + + + + + + | Specimen | + + | Blood | + + + + + + + | Performing | Address | City/State/Zipcode | Phone Number | | Organization | | | | + + + + + | [facility] | [address] | [place] [address] | | + + + + + Basic metabolic panel (02/25/2018 8:35 AM) + + + + + | Component | Value | Ref Range | Performed At | + + + + + | SODIUM | 139 | 135 - 145 mmol/L | [facility] | + + + + + | POTASSIUM | 3.8 | 3.5 - 4.9 mmol/L | [facility] | + + + + [...] 0.81 | 0.70 - 1.30 mg/dL | [facility] | + + + + + | BUN/CREAT | 15 | | [facility] | + + + + + | CALCIUM | 7.9 (L) | 8.5 - 10.5 mg/dL | [facility] | + + + + + | EGFR | >60Comment: GFR <60: | >60 mL/min/1.73m2 | [facility] | | | CHRONIC KIDNEY [...] | | | | | performed at [facility] | | | | | [facility];[place], [place] | | | | | [address] | | | + + + + + + + | Specimen | + + | Blood | + + + + + + + | Performing | Address | City/State/Zipcode | Phone Number | | Organization | | | | + + + + + | [facility] | [address] | [place] [address] | | + + + + + POCT glucose (02/25/2018 5:24 AM) + + + + + | Component | Value | Ref Range | Performed At | + + + + + | GLUCOSE,POC SCREEN | 167 (H)Comment: Testing | 65 - 99 mg/dL | [facility] | | | performed at [facility];[address] | | | | | [address];[place] | | | | | [address] | | | + + + + + + + + + + | Performing | Address | City/State/Zipcode | Phone Number | | Organization | | | | + + + + + | [facility] | [address] | [place] [address] | | + + + + + POCT glucose (02/24/2018 9:01 PM) + + + + + | Component | Value | Ref Range | Performed At | + + + + + | GLUCOSE,POC SCREEN | 240 (H)Comment: Testing | 65 - 99 mg/dL | [facility] | | | performed at [facility];[address] | | | | | [address];[place] | | | | | [address] | | | + + + + + + + + + + | Performing | Address | City/State/Zipcode | Phone Number | | Organization | | | | + + + + + | [facility] | [address] | [place] [address] | | + + + + + POCT glucose (02/24/2018 4:09 PM) + + + + + | Component | Value | Ref Range | Performed At | + + + + + | GLUCOSE,POC SCREEN | 214 (H)Comment: Testing | 65 - 99 mg/dL | [facility] | | | performed at [facility];[address] | | | | | [address];[place] | | | | | [address] | | | + + + + + + + + + + | Performing | Address | City/State/Zipcode | Phone Number | | Organization | | | | + + + + + | [facility] | [address] | [place] [address] | | + + + + + [...] | + + + + + | [facility] | [address] | [place] [address] | | + + + + + POCT glucose (02/24/2018 11:20 AM) + + + + + | Component | Value | Ref Range | Performed At | + + + + + | GLUCOSE,POC SCREEN | 153 (H)Comment: Testing | 65 - 99 mg/dL | [facility] | | | performed at [facility];[address] | | | | [address];[place] | | | | | [address] | | | + + + + + + + + + + | Performing | Address | City/State/Zipcode | Phone Number | | Organization | | | | + + + + + | [facility] | [address] | [facility] [place] [address] | | + + + + + POCT glucose (02/24/2018 5:43 AM) + + + + + | Component | Value | Ref Range | Performed At | + + + + + | GLUCOSE,POC SCREEN | 119 (H)Comment: Testing | 65 - 99 mg/dL | [facility] | | | performed at [facility];[address] | | | | | [address];[place] | | | | | [address] | | | + + + + + + + + + + | Performing | Address | City/State/Zipcode | Phone Number | | Organization | | | | + + + + + | [facility] | [address] | [place] [address] | | + + + + + [...] >60Comment: GFR <60: | >60 mL/min/1.73m2 | [facility] | | | CHRONIC KIDNEY DISEASE, [...] the | | | | | MDRD IDIN traceable | | | | | equation.Testing | | | | | performed at [facility], [address] | | | | | [facility], | | | | | [place] [address] | | | + + + + + + + | Specimen | + + | Blood | + + + + + + + | Performing | Address | City/State/Zipcode | Phone Number | | Organization | | | | + + + + + | [facility] | [address] | [place] [address] | [phone] | | LABORATORY | [place]. | | | + + + + + POCT glucose (02/24/2018 12:28 AM) + + + + + | Component | Value | Ref Range | Performed At | + + + + + | GLUCOSE,POC SCREEN | 100 (H)Comment: Testing | 65 - 99 mg/dL | [facility] | | | performed at [facility];[address] | | | | | [address];[place], [place] | | | | | [address] | | | + + + + + + + + + + | Performing | Address | City/State/Zipcode | Phone Number | | Organization | | | | + + + + + | [facility] | [address] | [place] [address] | | + + + + + POC arterial CG8+ (02/23/2018 8:55 PM) + + + + + | Component | Value | Ref Range | Performed At | + + + + + | pH, Art | 7.362 | 7.350 - 7.450 | [facility] | + + + + [...] (H) | 65 - 99 mg/dL | [facility] | + + + + + | POC HCT | 34 (L) | 40.0 - 50.0 % | [facility] | + + + + + | POC HGB | 11.6 (L)Comment: Testing | 13.7 - 16.7 g/dL | [facility] | | | performed at [facility];[address] | | | | | [address];[place] | | | | | [address] | | | + + + + + + + + + + | Performing | Address | City/State/Zipcode | Phone Number | | Organization | | | | + + + + + | [facility] | [address] | [place] [address] | | + + + + + POCT glucose (02/23/2018 6:46 PM) + + + + + | Component | Value | Ref Range | Performed At | + + + + + | GLUCOSE,POC SCREEN | 109 (H)Comment: Testing | 65 - 99 mg/dL | [facility] | | | performed at [facility];[address] | | | | | [address];[place] | | | | | [address] | | | + + + + + + + + + + | Performing | Address | City/State/Zipcode | Phone Number | | Organization | | | | + + + + + | [facility] | [address] | [place] [address] | | + + + + + POCT glucose (02/23/2018 4:22 PM) + + + + + | Component | Value | Ref Range | Performed At | + + + + + | GLUCOSE,POC SCREEN | 128 (H)Comment: Testing | 65 - 99 mg/dL | [facility] | | | performed at [facility];[address] | | | | | [facility];[place] | | | | | [address] | | | + + + + + + + + + + | Performing | Address | City/State/Zipcode | Phone Number | | Organization | | | | + + + + + | [facility] | [address] | [place] [address] | | + + + + + [...] | | | | [facility], [address] | | | | | [place] | | | | | [address] | | | + + + + + + + | Specimen | + + | Blood | + + + + + + + | Performing | Address | City/State/Zipcode | Phone Number | | Organization | | | | + + + + + | [facility] | [address] | [place] [address] | [phone] | | LABORATORY | [address] | | [...] | ANTIBODY SCREEN | NEGATIVE | | [facility] | + + + + + | ARM BAND NUMBER | [id number] | | [facility] | | | performed at [facility];[address] | | | | | [address];[place] | | | | | [address] | | | + + + + + + + | Specimen | + + | Blood | + + + + + + + | Performing | Address | City/State/Zipcode | Phone Number | | Organization | | | | + + + + + | [facility] | [address] | [place] [address] | | + + + + + POCT glucose (02/23/2018 12:17 PM) + + + + + | Component | Value | Ref Range | Performed At | + + + + + | GLUCOSE,POC SCREEN | 138 (H)Comment: Testing | 65 - 99 mg/dL | [facility] | | | performed at [facility];[address] | | | | | [address];[place] | | | | | [address] | | | + + + + + + + + + + | Performing | Address | City/State/Zipcode | Phone Number | | Organization | | | | + + + + + | [facility] | [address] | [place] [address] | | + + + + + Vancomycin, trough (02/23/2018 8:21 AM) + + + + + | Component | Value | Ref Range | Performed At | + + + + + | VANCOMYCIN,TROUGH | 16.6Comment: 15 to 20 | 10 - 20 ug/mL | [facility] | | | ug/mL for meningitis, | | | | | osteomyelitis, | | | | | endocarditis, sepsis, or | | | | | healthcare associated | | | | | pneumonia, or an MODESTA | | | | | equal to or greater than | | | | | 1.0 ug/mLTesting | | | | | performed at [facility];[address] | | | | | [address];[place], [place] | | | | | [address] | | | + + + + + + + | Specimen | + + | Blood | + + + + + + + | Performing | Address | City/State/Zipcode | Phone Number | | Organization | | | | + + + + + | [facility] | [address] | [place] [address] | | + + + + + POCT glucose (02/23/2018 5:33 AM) + + + + + | Component | Value | Ref Range | Performed At | + + + + + | GLUCOSE,POC SCREEN | 163 (H)Comment: Testing | 65 - 99 mg/dL | [facility] | | | performed at [facility];[address] | | | | | [address];[place] | | | | | [address] | | | + + + + + + + + + + | Performing | Address | City/State/Zipcode | Phone Number | | Organization | | | | + + + + + | [facility] | [address] | [place] [address] | | + + + + + APTT (02/23/2018 12:25 AM) + + + + + | Component | Value | Ref Range | Performed At | + + + + + | APTT | 40 (H)Comment: Testing | 23 - 32 seconds | [facility] | | | performed at [facility];[address] | | | | | [address];[place] | | | | | [address] | | | + + + + + + + | Specimen | + + | Blood | + + + + + + + | Performing | Address | City/State/Zipcode | Phone Number | | Organization | | | | + + + + + | [facility] | [address] | [place] [address] | | + + + + + POCT glucose (02/22/2018 9:39 PM) + + + + + | Component | Value | Ref Range | Performed At | + + + + + | GLUCOSE,POC SCREEN | 95Comment: Testing | 65 - 99 mg/dL | [facility] | | | performed at [facility];[address] | | | | | [address];[place] | | | | | [address] | | | + + + + + + + + + + | Performing | Address | City/State/Zipcode | Phone Number | | Organization | | | | + + + + + | [facility] | [address] | [place] [address] | | + + + + + [...] | + + + + + | [facility] | [address] | [place] [address] | | + + + + + IR angioplasty tiboperoneal additional vessel (02/22/2018 8:55 PM) + + + | Narrative | Performed At | + + + | DATE OF PROCEDURE: 02/22/2018 SURGEON: Johan Mueller MD | [facility] | | PREOPERATIVE DIAGNOSIS: 1) [...] was brought to | | | the labor employment associate and placed on supine position. Moderate sedation [...] DETAIL: The patient was brought to the labor employment associate and placed on | | supine position. [...] [facility] | [address] | [place] [address] | | + + + + + ADRIÁN garcia (02/22/2018 8:55 PM) + + + | Narrative | Performed At | + + + | DATE OF PROCEDURE: 02/22/2018 SURGEON: Johan Mueller MD | [facility] | | PREOPERATIVE DIAGNOSIS: 1) [...] was brought to | | | the labor employment associate and placed on supine position. Moderate sedation [...] DETAIL: The patient was brought to the labor employment associate and placed on | | supine position. [...] | + + + + + | [facility] | [address] | [place] [address] | | + + + + + IR aortagram abdominal (02/22/2018 8:55 PM) + + + | Narrative | Performed At | + + + | DATE OF PROCEDURE: 02/22/2018 SURGEON: Johan Mueller MD | [facility] | | PREOPERATIVE DIAGNOSIS: 1) [...] was brought to | | | the labor employment associate and placed on supine position. Moderate sedation [...] DETAIL: The patient was brought to the labor employment associate and placed on | | supine position. [...] | + + + + + | [facility] | [address] | [place] [address] | | + + + + + IR angiogram extremity right (02/22/2018 8:55 PM) + + + | Narrative | Performed At | + + + | DATE OF PROCEDURE: 02/22/2018 SURGEON: Johan Mueller MD | [facility] | | PREOPERATIVE DIAGNOSIS: 1) [...] was brought to | | | the labor employment associate and placed on supine position. Moderate sedation [...] DETAIL: The patient was brought to the labor employment associate and placed on | | supine position. [...] | + + + + + | [facility] | [address] | [place] [address] | | + + + + + POC ACT, arterial (02/22/2018 8:00 PM) + + + + + | Component | Value | Ref Range | Performed At | + + + + + | POC ACT | 241 (H)Comment: Testing | 74 - 137 seconds | [facility] | | | performed at [facility];[address] | | | | | [address];[place] | | | | | [address] | | | + + + + + + + + + + | Performing | Address | City/State/Zipcode | Phone Number | | Organization | | | | + + + + + | [facility] | [address] | [place] [address] | | + + + + + POCT glucose (02/22/2018 5:00 PM) + + + + + | Component | Value | Ref Range | Performed At | + + + + + | GLUCOSE,POC SCREEN | 105 (H)Comment: Testing | 65 - 99 mg/dL | [facility] | | | performed at [facility];[address] | | | | | [address];[place] | | | | | [address] | | | + + + + + + + + + + | Performing | Address | City/State/Zipcode | Phone Number | | Organization | | | | + + + + + | [facility] | [address] | [place] [address] | | + + + + + POCT glucose (02/22/2018 3:16 PM) + + + + + | Component | Value | Ref Range | Performed At | + + + + + | GLUCOSE,POC SCREEN | 110 (H)Comment: Testing | 65 - 99 mg/dL | [facility] | | | performed at [facility];[address] | | | | | [address];[place] | | | | | [address] | | | + + + + + + + + + + | Performing | Address | City/State/Zipcode | Phone Number | | Organization | | | | + + + + + | [facility] | [address] | [place] [address] | | + + + + + POCT glucose (02/22/2018 1:14 PM) + + + + + | Component | Value | Ref Range | Performed At | + + + + + | GLUCOSE,POC SCREEN | 76Comment: Testing | 65 - 99 mg/dL | [facility] | | | performed at [facility];[address] | | | | | [address];[place] | | | | | [address] | | | + + + + + + + + + + | Performing | Address | City/State/Zipcode | Phone Number | | Organization | | | | + + + + + | [facility] | [address] | [place] [address] | | + + + + + US greater saphenous vein map bilat (02/22/2018 1:12 PM) + + + | Impressions | Performed At | + + + | 1. Bilateral greater saphenous vein mapping as described above. | [facility] | | | [facility] | + + + + + + | Narrative | Performed At | + + + | ARSENIO WALKER 1960 US GREATER SAPHENOUS VEIN MAPPING [...] | [address] | [place] [address] | | + + + + + POCT glucose (02/22/2018 11:40 AM) + + + + + | Component | Value | Ref Range | Performed At | + + + + + | GLUCOSE,POC SCREEN | 73Comment: Testing | 65 - 99 mg/dL | [facility] | | | performed at [facility];[address] | | | | | [address];[place] | | | | | [address] | | | + + + + + + + + + + | Performing | Address | City/State/Zipcode | Phone Number | | Organization | | | | + + + + + | [facility] | [address] | [place] [address] | | + + + + + aPTT - Q6 starting in 6 hours x 2 (02/22/2018 11:20 AM) + + + + + | Component | Value | Ref Range | Performed At | + + + + + | APTT | 65 (H)Comment: Testing | 23 - 32 seconds | [facility] | | | performed at [facility];[address] | | | | | [address];[place], [place] | | | | | [address] | | | + + + + + + + | Specimen | + + | Blood | + + + + + + + | Performing | Address | City/State/Zipcode | Phone Number | | Organization | | | | + + + + + | [facility] | [address] | [place] [address] | | + + + + + [...] [facility] | [address] | [place] [address] | | + + + + + US lower extremty arterial right (02/22/2018 7:55 AM) + + + | Impressions | Performed At | + + + | 1. The proximal GLASS DESIGNER appears occluded with distal reconstitution | [facility] [...] EXTREMITY ARTERIAL RIGHT 02/22/2018 6:29 AM | [facility] | | HISTORY: 57 years. Male. Peripheral [...] systolic velocities (cm/s) / Doppler Waveform: Right: [employer] CONSULTANT | | | Prox: 124.8 and triphasic DFA Prox: 69.5 and triphasic SFA Prox: | | | 107.7 and triphasic SFA Mid:90.9 and triphasic SFA Distal: 78 and | | | triphasic POP Mid: 65.6 and triphasic Tibioperoneal trunk: 45 and | | | biphasic JOSE ANGEL Prox: 171.1 and triphasic JOSE ANGEL Distal: 107 and | | | monophasic GLASS DESIGNER Prox: 0 and absent GLASS DESIGNER Distal: 28.3 and monophasic | | | OSMAR Prox: 31 and biphasic Peroneal mid: Appears occluded. OSMAR | | | Distal: 88 and monophasic Dorsalis pedis artery: 48 and monophasic | | | Atherosclerosis in arteries of right lower extremity vascular | | | calcifications. The proximal GLASS DESIGNER appears occluded with distal | | | reconstitution via collaterals. Mid peroneal artery appears occluded | | | with distal reconstitution via collaterals. Probable hemodynamically | | | significant stenosis in proximal JOSE ANGEL. | | + + + + + | Procedure Note | + + | Zachariah, Rad Results In - 02/22/2018 7:55 AM PDT [facility] LOWER EXTREMITY | | ARTERIAL RIGHT02/22/2018 6:29 AMHISTORY:57 years. Male. Peripheral vascular disease. | | Right second toe amputation.COMPARISON:10/20/2017Limitations: Suboptimal examination due | | to vascular calcifications and atherosclerosis. Patient pain.TECHNIQUE:Sonographic | | evaluation of bilateral lower extremity arterial system. Grayscale, color-flow, and | | Doppler spectral analysis. Peak systolic velocities | | (cm/s) / Doppler Waveform:Right:DATAPOWER CONSULTANT Prox: 124.8 and triphasicDFA Prox: 69.5 and [...] | | lower extremity vascular calcifications.The proximal GLASS DESIGNER appears occluded with distal | | reconstitution via collaterals.Mid peroneal artery appears occluded with distal | | reconstitution via collaterals.Probable hemodynamically significant stenosis in proximal | | JOSE ANGEL.IMPRESSION:1. The proximal GLASS DESIGNER appears occluded with distal reconstitution via | [...] |JOSE ANGEL Distal: 107 and monophasic | |GLASS DESIGNER Prox: 0 and absent | |GLASS DESIGNER Distal: 28.3 and monophasic | |OSMAR Prox: 31 and biphasic | |Peroneal mid: Appears occluded. | |OSMAR Distal: 88 and monophasic | |Dorsalis pedis artery: 50 and monophasic | | | |Atherosclerosis in arteries of right lower extremity vascular calcifications. | | | |The proximal GLASS DESIGNER appears occluded with distal reconstitution via collaterals. | |Mid peroneal artery appears occluded with distal reconstitution via collaterals. | |Probable hemodynamically significant stenosis in proximal JOSE ANGEL. | | | |IMPRESSION: | |1. The proximal GLASS DESIGNER appears occluded with distal reconstitution via collaterals. [...] | + + + + + | [facility] | [address] | [place] [address] | | + + + + + [...] | | | | | [place] | | | | | [address] | | | + + + + + + + + + + | Performing | Address | City/State/Zipcode | Phone Number | | Organization | | | | + + + + + | [facility] | [address] | [place] [address] | [phone] | | LABORATORY | [address] | | [...] [address] | [place] [address] | [phone] | | LABORATORY | [address]vd. | | [...] + + + + + | Specific [place], UA | 1.012 | 1.002 - 1.030 [...] | TRACE (A) | NEGATIVE mg/dL | [facility] | | | | | LABORATORY | + + + + + | BILIRUBIN | NEGATIVE | NEGATIVE | [facility] | | | | | LABORATORY | + + + + + | GLUCOSE | NEGATIVEComment: Testing | NEGATIVE mg/dL | [facility] | | | performed at [facility], [address] | | LABORATORY | | | [address], | | | | | [place] [address] | | | + + + + + + + | Specimen | + + | Urine - Urine, Clean | | Catch | + + + + + + + | Performing | Address | City/State/Zipcode | Phone Number | | Organization | | | | + + + + + | [facility] | [address] | [place] [address] | [phone] | | LABORATORY | [place]. | | | + + + + + POCT glucose (02/22/2018 4:06 AM) + + + + + | Component | Value | Ref Range | Performed At | + + + + + | GLUCOSE,POC SCREEN | 93Comment: Testing | 65 - 99 mg/dL | [facility] | | | performed at [facility] | | | | | [address];[place], [place] | | | | | [address] | | | + + + + + + + + + + | Performing | Address | City/State/Zipcode | Phone Number | | Organization | | | | + + + + + | [facility] | [address] | [place] [address] | | + + + + + MRSA by PCR (02/22/2018 4:06 AM) + + + + + | Component | Value | Ref Range | Performed At | + + + + + | SOURCE | NARES(NOSE) | | [facility] | + + + + + | MRSA PCR | NEGATIVEComment: Testing | NEGATIVE | [facility] | | | performed at [facility];[address] | [address];[place] | | | | | [address] | | | + + + + + + + | Specimen | + + | Nasopharyngeal - | | Nares(Nose) | + + + + + + + | Performing | Address | City/State/Zipcode | Phone Number | | Organization | | | | + + + + + | [facility] | [address] | [place] [address] | | + + + + + catrina Fink (02/22/2018 3:30 AM) + + + + + | Component | Value | Ref Range | Performed At | + + + + + | TANJA, DIRECT | 0.4 (H)Comment: Testing | 0.0 - 0.3 mg/dL | [facility] | | | performed at [facility], [address] | | LABORATORY | | | [facility], | | | | | [place] [address] | | | + + + + + + + + + + | Performing | Address | City/State/Zipcode | Phone Number | | Organization | | | | + + + + + | [facility] | [address] [place] [address] | [place] [address] | [phone] | | LABORATORY | [address]vd[address] | | | + + + + + Protime-INR (02/22/2018 3:30 AM) + + + + + | Component | Value | Ref Range | Performed At | + + + + + | INR | 1.1Comment: REFERENCE | | [facility] | | | RANGE:0.9 - [...] | | | | | performed at [facility];[address] | | | | | [address];[place], [place] | | | | | [address] | | | + + + + + + + + + + | Performing | Address | City/State/Zipcode | Phone Number | | Organization | | | | + + + + + | [facility] | [address] | [place] [address] | | + + + + + Septic Lactic Acid (02/22/2018 3:30 AM) + + + + + | Component | Value | Ref Range | Performed At | + + + + + | LACTIC ACID | 1.2Comment: Testing | 0.4 - 2.0 mmol/L | [facility] | | | performed at [facility];[address] | | | | | [address];[place] | | | | | [address] | | | + + + + + + + + + + | Performing | Address | City/State/Zipcode | Phone Number | | Organization | | | | + + + + + | [facility] | [address] | [place] [address] | | + + + + + aPTT - Q6 starting in 6 hours x 2 (02/22/2018 3:30 AM) + + + + + | Component | Value | Ref Range | Performed At | + + + + + | APTT | 132 ()Comment: PTT | 23 - 32 seconds | [facility] | | | PHONED TO DANNIE SOOD | | | | | AT 0415 BY LJREAD BACK | | | | | RESULTS VERIFIEDTesting | | | | | performed at [facility];[address];[place] | | | | | [address] | | | + + + + + + + | Specimen | + + | Blood | + + + + + + + | Performing | Address | City/State/Zipcode | Phone Number | | Organization | | | | + + + + + | [facility] | [address] | [place] [address] | | + + + + + Glycohemoglobin A1C (02/22/2018 3:30 AM) + + + + + | Component | Value | Ref Range | Performed At | + + + + + | HEMOGLOBIN A1C | 7.9 (H)Comment: The | 4.0 - 6.0 % | [facility] | | | [place] Diabetes | | LABORATORY | | | [...] | 180Comment: The ADA | mg/dL | [facility] | | GLUCOSE | considers an [...] | | | | | performed at [facility], [address] | | | | | [facility], | | | | | [place] [address] | | | + + + + + + + | Specimen | + + | Blood | + + + + + + + | Performing | Address | City/State/Zipcode | Phone Number | | Organization | | | | + + + + + | [facility] | [address] | [place] [address] | [phone] | | LABORATORY | [address]vd[address] | | [...] (H) | 0.1 - 1.5 mg/dL | [facility] | | | | | LABORATORY | + + + + + | ALK PHOS | 83 | 35 - 115 U/L | [facility] | | | | | LABORATORY | + + + + + | AST | 21 | 10 - 45 U/L | [facility] | | | | | LABORATORY | + + + + + | ALT | 25 | 10 - 65 U/L | [facility] | | | | | LABORATORY | + + + + + | EGFR | >60Comment: GFR <60: | >60 mL/min/1.73m2 | [facility] | | | CHRONIC KIDNEY DISEASE, [...] at | | | | | [facility], [address] [place] [address] | | | | | [place], | | | | | [place] [address] | | | + + + + + + + | Specimen | + + | Blood | + + + + + + + | Performing | Address | City/State/Zipcode | Phone Number | | Organization | | | | + + + + + | [facility] | [address] | [place] [address] | [phone] | | LABORATORY | [address]. | | | + + + + + Magnesium (02/22/2018 3:30 AM) + + + + + | Component | Value | Ref Range | Performed At | + + + + + | MAGNESIUM | 1.9Comment: Testing | 1.7 - 2.4 mg/dL | [facility] | | | performed at [facility], [address] | | LABORATORY | | | [facility], | | | | | [place] [address] | | | + + + + + + + | Specimen | + + | Blood | + + + + + + + | Performing | Address | City/State/Zipcode | Phone Number | | Organization | | | | + + + + + | [facility] | [address] | [place] [address] | [phone] | | LABORATORY | [address]vd[address] | | [...] | [facility] | | | performed at [facility], [address] | | LABORATORY | | | [facility] [place], | | | | | [place] [address] | | | + + + + + + + | Specimen | + + | Blood | + + + + + + + | Performing | Address | City/State/Zipcode | Phone Number | | Organization | | | | + + + + + | [facility] | [address] [place] [address] | [place] [address] | [phone] | | LABORATORY | [address] | | [...] | + + + + + | [facility] | [address] | [place] [address] | [phone] | | LABORATORY | [address]vd[address] | | | + + + + + | [facility] | [address] | [place] [address] | | + + + + + Cardiac Panel (02/21/2018 9:00 PM) + + + + + | Component | Value | Ref Range | Performed At | + + + + + | WBC | 16.21 (H) | 3.80 - 11.00 K/uL | [facility] | + + + + + | RBC | 4.73 | 4.20 - 5.70 M/uL | [facility] | + + + + + | HGB | 14.6 | 13.2 - 17.0 g/dL | [facility] | + + + + + | HCT | 41.4 | 39.0 - 50.0 % | [facility] | + + + + + [...] (H) | 1.90 - 7.40 K/uL | [facility] | + + + + + | LYMPHOCYTES ABS | 0.90 (L) | 1.00 - 3.90 K/uL | [facility] | + + + + + | MONOCYTES ABS | 0.99 (H) | 0.00 - 0.80 K/uL | [facility] | + + + + + | EOSINOPHILS ABS | 0.00 | 0.00 - 0.50 K/uL | [facility] | + + + + + | BASOPHILS ABS | 0.03 | 0.00 - 0.10 K/uL | [facility] | + + + + + | MORPHOLOGY | RBC AND PLT MORPHOLOGY | | [facility] | | | APPEAR NORMAL | | | + + + + + | Platelet Estimate | ADEQUATE | | [facility] | + + + + + | Diff Comment | SLIDE SCANNED, AGREES | | [facility] | | | WITH AUTOMATED RESULTS. | | | + + + + + | SODIUM | 134 (L) | 135 - 145 mmol/L | [facility] | + + + + + | POTASSIUM | 4.1 | 3.5 - 4.9 mmol/L | [facility] | + + + + + | CHLORIDE | 97 (L) | 99 - 109 mmol/L | [facility] | + + + + + | CO2 | 28 | 23 - 32 mmol/L | [facility] | + + + + + [...] (L) | 3.6 - 5.0 g/dL | [facility] | + + + + [...] >60Comment: GFR <60: | >60 mL/min/1.73m2 | [facility] | | | CHRONIC KIDNEY [...] the | | | | | MDRD IDIN traceable | | | | | equation. PLEASE NOTE | | | | | NEW CALCULATION | | | | | EFFECTIVE 01/25/2018 | | | + + + + + | CPK | 32 (L) | 55 - 400 U/L | [facility] | + + + + + | INR | 1.1Comment: REFERENCE | | [facility] | | | RANGE:0.9 - [...] (H) | 23 - 32 seconds | [facility] | + + + + + | MMB | <1.0 | 0.5 - 3.6 ng/mL | [facility] | + + + + + | CK-MB Index | UNABLE TO | | [facility] | | | CALCULATEComment: | | | | | Testing performed at | | | | | [facility];[address] | | | | | Blvd;[place] [address] | | | + + + + + + + + + + | Performing | Address | City/State/Zipcode | Phone Number | | Organization | | | | + + + + + | [facility] | [address] | [place] [address] | | + + + + + [...] + + + | [facility] | [address] | [place] [address] | [phone] | | LABORATORY | [address]vd[address] | | | + + + + + | [facility] | [address] | [place] [address] | | + + + + + Septic Lactic Acid (02/21/2018 9:00 PM) + + + + + | Component | Value | Ref Range | Performed At | + + + + + | LACTIC ACID | 1.9Comment: Testing | 0.4 - 2.0 mmol/L | [facility] | | | performed at [facility];[address] | | | | | [address];[place] | | | | | [address] | | | + + + + + + + + + + | Performing | Address | City/State/Zipcode | Phone Number | | Organization | | | | + + + + + | [facility] | [address] | [place] [address] | | + + + + + [...] | | | | | | Starting [facility] 02/24/18 at 0031 | | | | [...] PDT | | | | | Starting [facility] 02/22/18 at 0209 | | | | [...]
--- OUTSIDE RECORDS SUMMARY | ~2018-04-10 | XMS | Clinical Summary ---
Demographics + + + | Address | [address] | | | [place] [address] | + + + | Home Phone [...] + + + | Author | [facility] | + + + | Organization | [facility] | + + + | Address | Unknown | + + + | Phone | Unavailable | + + + Support + + +---------+ + | Name | Relationship | Address | Phone | + + +---------+ + | Megan Walker | ECON | Unknown | | + + +---------+ + Care Team Providers + +------+ + | Care Floorleader Name | Role | Phone | + +------+ + | Nicholas Claire MD | PP | | + +------+ + Allergies + + + + + + | Active Allergy | Reactions | Severity | Noted | Comments | | | | | Date | | + + + + + + | Hydromorphone | Hallucinations | Medium | 02/27/20 | | | | | | 18 | | + + + + + + Current Medications + + + +---------+------+------+-------+ | Prescription | Sig. | Disp. | Refills | Star | End | Statu | | | | | | t | Date | s | | | | | | Date | | | + + + +---------+------+------+-------+ | losartan (COZAAR) | Take 25 mg by mouth | | | 11/2 | | Activ | | 25 MG tablet | daily. | | | 420 | | e | | | | | | 17 | | | + + + +---------+------+------+-------+ | JANUMET XR 50-500 | Take 1 tablet by | | | 12/2 | | Activ | | MG TB24 | mouth every morning. | | | 05/19 | | e | | | | | | 17 | | | + + + +---------+------+------+-------+ | atorvastatin | Take 1 tablet by | 30 | 11 | 07/0 | 07/0 | Activ | | (LIPITOR) 40 MG | mouth nightly. | tablet | | 2/20 | 2/20 | e | | tablet | | | | 18 | 19 | | + + + +---------+------+------+-------+ | metoprolol | Take 0.5 tablets by | 30 | 11 | 07/0 | 07/0 | Activ | | (LOPRESSOR) 25 MG | mouth 2 (two) times | tablet | | 10/19 | 10/19 | e | | tablet | daily. | | | 18 | 19 | | + + + +---------+------+------+-------+ | glimepiride | Take 1 tablet by | 30 | 11 | 02/27 | 02/27 | Activ | | (AMARYL) 2 MG tablet | mouth every morning. | tablet | | 03/18 | 03/18 | e | | | | | | 18 | 19 | | + + + +---------+------+------+-------+ | Multiple | Take 1 tablet by | | | | | Activ | | Vitamins-Minerals | mouth daily. | | | | | e | | (MULTIVITAMIN WITH | | | | | | | | MINERALS) tablet | | | | | | | + + + +---------+------+------+-------+ | Amino | Take 30 mLs by mouth | | | | | Activ | | Acids-Protein | daily. | | | | | e | | Hydrolys (PRO-STAT) | | | | | | | | LIQD | | | | | | | + + + +---------+------+------+-------+ | bisacodyl | Place 10 mg rectally | | | | | Activ | | (DULCOLAX) 10 MG | once. | | | | | e | | suppository | | | | | | | + + + +---------+------+------+-------+ | magnesium | Take 5 mLs by mouth | | | | | Activ | | hydroxide (MILK OF | daily as needed for | | | | | e | | MAGNESIA) 400 MG/5ML | Constipation. | | | | | | | suspension | | | | | | | + + + +---------+------+------+-------+ | gabapentin | Take 1 capsule by | 90 | 11 | 08/0 | 08/0 | Activ | | (NEURONTIN) 300 MG | mouth 3 (three) | capsule | | 6/20 | 6/20 | e | | capsule | times daily. | | | 18 | 19 | | + + + +---------+------+------+-------+ | oxycodone 10 MG | Take 1 tablet by | 30 | 0 | 08/0 | | Activ | | tablet | mouth every 4 (four) | tablet | | 6/20 | | e | | | hours as needed (6 | | | 18 | | | | | to 7). | | | | | | + + + +---------+------+------+-------+ | oxyCODONE | Take 1 tablet by | 30 | 0 | 08/0 | | Activ | | (ROXICODONE) 15 MG | mouth every 4 (four) | tablet | | 6/20 | | e | | immediate release | hours as needed (8 | | | 18 | | | | tablet | to 10). | | | | | | + + + +---------+------+------+-------+ | metFORMIN | Take 1,000 mg by | | | 11/2 | 07/ | Disco | | (GLUCOPHAGE) 500 MG | mouth 2 (two) times | | | /20 | 7/20 | ntinu | | tablet | daily. | | | 17 | 18 | ed | + + + +---------+------+------+-------+ | clopidogrel | Take 1 tablet by | 90 | 0 | 02/2 | 08/0 | Disco | | (PLAVIX) 75 MG | mouth daily. | tablet | | /20 | 20 | ntinu | | tablet | | | | 18 | 18 | ed | + + + +---------+------+------+-------+ | glimepiride | Take 4 mg by mouth | | | 02/2 | 02/27 | Disco | | (AMARYL) 4 MG tablet | every morning. | | | 11/16 | 03/18 | ntinu | | | | | | 18 | 18 | ed | + + + +---------+------+------+-------+ | aspirin 81 MG | Take 81 mg by mouth | | | | 02/27 | Disco | | chewable tablet | daily with | | | | 720 | ntinu | | | breakfast. | | | | 18 | ed | + + + +---------+------+------+-------+ | | Take 1 tablet by | 30 | 0 | 07/0 | 07/1 | Disco | | HYDROcodone-acetamin | mouth every 4 (four) | tablet | | 2/20 | 7/20 | ntinu | | ophen (NORCO) 10-325 | hours as needed. | | | 18 | 18 | ed | | MG per tablet | | | | | | | + + + +---------+------+------+-------+ | acetaminophen | Take 2 tablets by | 30 | 0 | 07/0 | 07/1 | Disco | | (TYLENOL) 325 MG | mouth every 6 (six) | tablet | | 2/20 | 7/20 | ntinu | | tablet | hours as needed for | | | 18 | 18 | ed | | | up to 10 days. | | | | | | + + + +---------+------+------+-------+ | LORazepam (ATIVAN) | Take 1 tablet by | 30 | 0 | 07/0 | 07/1 | Disco | | 0.5 MG tablet | mouth every 4 (four) | tablet | | 2/20 | 7/20 | ntinu | | | hours as needed for | | | 18 | 18 | ed | | | Anxiety. | | | | | | + + + +---------+------+------+-------+ | bisacodyl | Place 1 suppository | 1 | 0 | 07/0 | 07/1 | Disco | | (DULCOLAX) 10 MG | rectally daily as | supposito | | 2/20 | 7/20 | ntinu | | suppository | needed for up to 10 | ry | | 18 | 18 | ed | | | days. | | | | | | + + + +---------+------+------+-------+ | magnesium | Take 30 mLs by mouth | 360 mL | 0 | 07/0 | 07/1 | Disco | | hydroxide (MILK OF | daily as needed for | | | 2/20 | 7/20 | ntinu | | MAGNESIA) 400 MG/5ML | Constipation for up | | | 18 | 18 | ed | | suspension | to 10 days. | | | | | | + + + +---------+------+------+-------+ | nicotine (NICODERM | Place 1 patch onto | 28 | 0 | 07/0 | 08/0 | Disco | | CQ) 21 MG/24HR | the skin daily for | patch | | 2/20 | 6/20 | ntinu | | | 30 days. | | | 18 | 18 | ed | + + + +---------+------+------+-------+ | | Take 1 tablet by | 30 | 0 | 07/1 | 08/0 | Disco | | HYDROcodone-acetamin | mouth every 4 (four) | tablet | | 7/20 | 6/20 | ntinu | | ophen (NORCO) 10-325 | hours as needed. | | | 18 | 18 | ed | | MG per tablet | | | | | | | + + + +---------+------+------+-------+ | LORazepam (ATIVAN) | Take 1 tablet by | 30 | 0 | 07/1 | 08/0 | Disco | | 0.5 MG tablet | mouth every 4 (four) | tablet | | 7/20 | 1/20 | ntinu | | | hours as needed for | | | 18 | 18 | ed | | | Anxiety. | | | | | | + + + +---------+------+------+-------+ | warfarin | Take 1 tablet by | 30 | 3 | 07/1 | 08/0 | Disco | | (COUMADIN) 5 MG | mouth Once | tablet | | 7/20 | 6/20 | ntinu | | tablet | daily-Coumadin. 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, without | 03/30/2018 | | long-term current use of insulin (HCC) | | + + + | Hypertensive heart disease without heart failure | 03/30/2018 | + + + | Occlusion of right femoral-popliteal bypass graft, initial | 03/11/2018 | | encounter (HCC) | | + + + | Weakness generalized | 03/11/2018 | + + + | Debility | 03/11/2018 | + + + | Other hyperlipidemia | 03/11/2018 | + + + | PVD (peripheral vascular disease) ([facility]) | 02/21/2018 | + + + | Essential hypertension | 02/21/2018 | + + + | DM (diabetes mellitus) ([facility]) | 02/21/2018 | + + + Resolved Problems + + + + | Problem | Noted | Resolved | | | Date | Date | + + + + | Amputation stump infection ([facility]) | 03/30/20 | | | | 18 | 8 | + + + + | Foot ulcer with necrosis of bone, right (HCC) | 02/22/20 | | | | 18 | 8 | + + + + | Critical lower limb ischemia | 02/22/20 | | | | 18 | 8 | + + + + Encounters +--------+ + + + + | Date | Type | Specialty | Care Team | Description | +--------+ + + + + | 03/31/ | Anesthesia | | Pete Allen, | | | 2018 | 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 | | +--------+ + + + + | 03/31/ | Procedure | | | | | 2018 | Pass | | | | +--------+ + + + + | 03/31/ | Surgery | | Johan Rashid MD | KNEE - AMPUTATION | | 2018 | | | | BELOW | +--------+ + + + + | 03/30/ | Hospital | | Holger Soto | Amputation stump | | 2018 - | Encounter | | DO Jason Garcia, | infection (HCC) | | | | | MD Kade | (Primary Dx); PVD | | 04/04/ | | | Caroline Yuan MD | (peripheral vascular | | 2018 | | | | disease) (HCC) | +--------+ + + + + | 03/30/ | Telephone | | Yesenia Witt, | | | 2017 | | | RN | | +--------+ + + + + | 03/30/ | Orders Only | | Chris Duggan DNP | | | 2017 | | | | | +--------+ + + + + | 03/16/ | Clinical | | Yesenia Witt, | PAD (peripheral | | 2017 | Support | | RN | artery disease) | | | | | | (HCC) (Primary Dx) | +--------+ + + + + | 03/16/ | Orders Only | | Yesenia Witt, | Occlusion of right | | 2017 | | | RN | femoral-popliteal | | | | | | bypass graft, | | | | | | initial encounter | | | | | | (HCC) (Primary Dx) | +--------+ + + + + | 03/11/ | Hospital | | Yordy Troy | Occlusion of graft | | 2017 - | Encounter | | MD Shaun See, | of lower extremity, | | | | | MD Vrena | initial encounter | | 03/15/ | | | Caroline Yuan MD | (HCC) (Primary Dx); | | 2017 | | | Pablo Weir DO | Critical lower limb | | | | | Valerie House, | ischemia | | | | | MD | | +--------+ + + + + +---+ + | | Discharge | | | Summaries | | | - Lissy, | | | MD Caroline - | | | 03/15/2018 | | | 8:45 AM | | | PDT | | | Formatting | | | of this | | | note may be | | | different | | | from the | | | original.[facility] | [facility]: | | | Hospitalist | | | Discharge | | | SummaryDate | | | of | | | Admission: | | | | | | 03/11/2018Da | | | te of | | | Discharge: | | | | | | 03/15/2018Di | | | scharge | | | Provider: | | | Caroline | | | Lissy, | | | MDConsults: | | | vascular | | | surgeryDisc | | | harge | | | Diagnoses: | | | Principal | | | Problem: | | | Occlusion | | | of right | | | femoral-pop | | | liteal | | | bypass | | | graft, | | | initial | | | encounter | | | (HCC)Active | | | Problems: | | | PVD | | | (peripheral | | | vascular | | | disease) | | | (HCC) | | | Essential | | | hypertensio | | | n DM | | | (diabetes | | | mellitus) | | | (HCC) | | | Weakness | | | generalized | | | Debility | | | Other | | | hyperlipide | | | miaResolved | | | Problems: | | | * No | | | resolved | | | hospital | | | problems. | | | *HOSPITAL | | | COURSE: | | | This is a | | | 57-year-old | | | male with | | | a past | | | medical | | | history of | | | hypertensio | | | n, diabetes | | | mellitus | | | type 2, | | | peripheral | | | vascular | | | disease | | | status post | | | right | | | peripheral | | | vascular | | | disease who | | | was | | | recently | | | admitted at | | | [facility] in | | | January | | | 2018 due to | | | chronic | | | right foot | | | ulcer, | | | right foot | | | gangrene | | | and | | | evidence of | | | necrosis | | | of the | | | distal | | | toes. | | | Vascular | | | surgery | | | services | | | were | | | involved | | | and Dr. Rashid | | | performed | | | right | | | popliteal | | | to [employer] | | | bypass and | | | reversed | | | [facility] | | | followed by | | | right | | | transmetata | | | rsal | | | amputation | | | on | | | 02/25/2018. | | | He was | | | initially | | | kept on IV | | | antibiotics | | | and later | | | switched to | | | Augmentin | | | at the time | | | of | | | discharge | | | on | | | 03/01/2018. | | | He was | | | doing well | | | in the | | | first few | | | days after | | | discharge. | | | He went | | | for his | | | routine | | | followup | | | with | | | Podiatry | | | and was | | | found to | | | have | | | necrosis of | | | the suture | | | line. | | | Ultrasound | | | was hence | | | performed | | | which | | | showed that | | | the bypass | | | area was | | | occluded | | | and he was | | | referred to | | | the | | | emergency | | | department. | | | In the | | | emergency | | | department | | | he was | | | hemodynamic | | | ally | | | stable. | | | His initial | | | CBC and | | | CMP were | | | stable. He | | | was | | | started on | | | a heparin | | | drip. | | | Vascular | | | Surgery was | | | consulted. | | | The | | | patient | | | underwent | | | thrombectom | | | y and | | | angioplasty | | | of the | | | right foot | | | popliteal | | | to [employer] | | | bypass | | | graft, | | | angioplasty | | | of the | | | right | | | popliteal | | | artery. He | | | tolerated | | | the | | | procedure. | | | He was | | | eventually | | | transitione | | | d to | | | Coumadin | | | with a | | | therapeutic | | | INR on | | | discharge | | | and he was | | | continued | | | on Plavix. | | | His pain | | | was | | | controlled. | | | He was | | | evaluated | | | by physical | | | therapy | | | who | | | recommended | | | discharge | | | back to | | | [facility]. The | | | patient | | | will go | | | back to | | | [facility] | | | .The | | | patient was | | | seen by | | | Wound Care | | | for wounds | | | on | | | bilateral | | | heels which | | | were | | | present on | | | admission. | | | He is | | | non-weightb | | | earing to | | | his right | | | lower | | | extremity | | | post-surger | | | y. The | | | patient | | | will need | | | to follow | | | up with . | | | [facility] and | | | Dr. Garcia, | | | his | | | privacy compliance manager, | | | as an | | | outpatient | | | in two | | | weeks for a | | | repeat | | | arterial | | | duplex.For | | | his type 2 | | | diabetes | | | mellitus, | | | his | | | hemoglobin | | | A1c, he was | | | noted to | | | have | | | hypoglycemi | | | c episodes, | | | hence his | | | glimepiride | | | was | | | discontinue | | | d and he | | | was | | | restarted | | | on Janumet. | | | He will | | | need to | | | monitor his | | | blood | | | sugar at | | | the skilled | | | nursing | | | facility. | | | All other | | | chronic | | | medical | | | problems | | | remain | | | stable and | | | were | | | managed | | | accordingly | | | .DISCHARGE | | | EXAMVital | | | Signs:BP | | | 129/45 (BP | | | Location: | | | Right upper | | | arm) | | | | Pulse 81 | | | | Temp 97.8 | | | F (36.6 | | | C) (Oral) | | | | Resp 18 | | | | Ht 1.6 | | | m (5' 3") | | | | Wt 97 kg | | | (213 lb | | | 13.5 oz) | | | | SpO2 100% | | | | BMI | | | 37.88 | | | kg/m Gen: | | | AOX3. | | | NADHEENT: | | | NCATCV: | | | RRR. S1S2 | | | normal. no | | | murmer, | | | rubs, or | | | gallops. No | | | JVDChest: | | | CTA b/lAbd: | | | SNTND. | | | BS+, no | | | gaurding or | | | | | | ridigityExt | | | : right TMA | | | suture | | | line with | | | dark edges, | | | no suture | | | dehiscence; | | | pulse | | | difficult | | | to palpate, | | | medial | | | suture site | | | c/d/i. 2+ | | | DPNeuro: | | | Motor/sensa | | | tions | | | intact. 2+ | | | DTRsDATACBC | | | : Lab | | | Results | | | Component | | | Value Date | | | WBC 6.31 | | | 03/14/2018 | | | RBC 3.47 | | | (L) | | | 03/14/2018 | | | HGB 10.3 | | | (L) | | | 03/14/2018 | | | HCT 29.9 | | | (L) | | | 03/14/2018 | | | MCV 86.1 | | | 03/14/2018 | | | MCH 29.7 | | | 03/14/2018 | | | MCHC 34.5 | | | 03/14/2018 | | | RDW 42.0 | | | 03/14/2018 | | | PLT 249 | | | 03/14/2018 | | | MPV 7.9 | | | 03/14/2018 | | | DIFFTYPE | | | AUTOMATED | | | 03/14/2018 | | | CMP: Lab | | | Results | | | Component | | | Value Date | | | NA 139 | | | 03/14/2018 | | | K 4.1 | | | 03/14/2018 | | | K 4.1 | | | 02/23/2018 | | | CL 105 | | | 03/14/2018 | | | CO2 27 | | | 03/14/2018 | | | ANIONGAP | | | 11 | | | 03/14/2018 | | | GLUF 93 | | | 03/14/2018 | | | BUN 15 | | | 03/14/2018 | | | CREATININE | | | 0.8 | | | 03/14/2018 | | | BCR 19 | | | 03/14/2018 | | | CA 8.6 | | | 03/14/2018 | | | PROT 7.5 | | | 03/11/2018 | | | ALB 2.6 | | | (L) | | | 03/11/2018 | | | GLOB 4.9 | | | 03/11/2018 | | | BILITOT | | | 0.6 | | | 03/11/2018 | | | ALP 95 | | | 03/11/2018 | | | AST 23 | | | 03/11/2018 | | | ALT 39 | | | 03/11/2018 | | | EGFR >60 | | | 03/14/2018 | | | BMP: Lab | | | Results | | | Component | | | Value Date | | | NA 139 | | | 03/14/2018 | | | K 4.1 | | | 03/14/2018 | | | K 4.1 | | | 02/23/2018 | | | CL 105 | | | 03/14/2018 | | | CO2 27 | | | 03/14/2018 | | | ANIONGAP | | | 11 | | | 03/14/2018 | | | GLUF 93 | | | 03/14/2018 | | | BUN 15 | | | 03/14/2018 | | | CREATININE | | | 0.8 | | | 03/14/2018 | | | BCR 19 | | | 03/14/2018 | | | CA 8.6 | | | 03/14/2018 | | | EGFR >60 | | | 03/14/2018 | | | Us Bypass | | | Graft Lower | | | Extremity | | | UnilateralR | | | esult Date: | | | | | | 03/11/20181. | | | Inflow | | | via the | | | right | | | common | | | femoral | | | artery, | | | superficial | | | femoral | | | artery and | | | proximal | | | popliteal | | | artery | | | shows | | | normal | | | velocity | | | and | | | triphasic | | | waveforms. | | | 2. The | | | distal | | | popliteal-d | | | istal | | | posterior | | | tibial | | | artery | | | bypass | | | graft is | | | occluded | | | and the | | | distal | | | posterior | | | tibial | | | artery is | | | also | | | occluded. | | | 3. The | | | anterior | | | tibial and | | | peroneal | | | arteries | | | show | | | triphasic | | | flow to the | | | foot. | | | [employer] | | | lly signed | | | by Edward | | | Iuliano, DO | | | on | | | 03/11/2018 | | | 12:54 | | | PMDispositi | | | on: | | | Nursing | | | homeConditi | | | on: | | | StableCode | | | Status: | | | Full | | | CodeDischar | | | ge | | | Instruction | | | sProtime-IN | | | R Standing | | | Status: | | | Future | | | Standing | | | Exp. Date: | | | 03/15/19 | | | Ambulatory | | | referral to | | | | | | Anticoagula | | | tion | | | Monitoring | | | Referral | | | Priority: | | | Routine | | | Referral | | | Type: | | | Consultatio | | | n Referral | | | Reason: | | | Specialty | | | Services | | | Required | | | Requested | | | Specialty: | | | Anticoagula | | | tion | | | Number of | | | Visits | | | Requested: | | | 1 Follow | | | up:Nicholas | | | [place], | | | [id number] | | [address] [place] | | | [place] | | | [phone] | | | [phone] | | | [address] [place], | | | [id number] | | | [address] | | | [address] | | | [place] | | | [phone] | | | [phone] | | | weeksJoshua | | | Jose, | | | [id number] | | | [address] | | [address] | | | [address] | | | [place] | | | [phone] | | | [phone] | | | In 1 | | | weekDischar | | | ge took 35 | | | minutes, to | | | include | | | final | | | examination | | | , | | | discussion | | | of | | | admission, | | | and | | | preparation | | | of | | | prescriptio | | | ns, | | | instruction | | | s for | | | on-going | | | care, | | | follow-up | | | and | | | documentati | | | on of | | | discharge | | | summary. | | | Medication | | | List START | | | taking | | | these | | | medications | | | warfarin | | | 5 MG | | | tabletQTY: | | | 30 | | | tabletRefil | | | ls: | | | 3Commonly | | | known as: | | | COUMADINTak | | | e 1 tablet | | | by mouth | | | Once | | | daily-Couma | | | din. | | | CHANGE how | | | you take | | | these | | | medications | | | | | | glimepiride | | | 2 MG | | | tabletQTY: | | | 30 | | | tabletRefil | | | ls: | | | 11Commonly | | | known as: | | | AMARYLTake | | | 1 tablet by | | | mouth | | | every | | | morning.Wha | | | t | | | changed: | | | medication | | | strength | | | how much to | | | take | | | CONTINUE | | | taking | | | these | | | medications | | | | | | atorvastati | | | n 40 MG | | | tabletQTY: | | | 30 | | | tabletRefil | | | ls: | | | 11Commonly | | | known as: | | | LIPITORTake | | | 1 tablet | | | by mouth | | | nightly. | | | clopidogrel | | | 75 MG | | | tabletQTY: | | | 90 | | | tabletRefil | | | ls: | | | 0Commonly | | | known as: | | | PLAVIXTake | | | 1 tablet by | | | mouth | | | daily. | | | HYDROcodone | | | -acetaminop | | | hen 10-325 | | | MG per | | | tabletQTY: | | | 30 | | | tabletRefil | | | ls: | | | 0Commonly | | | known as: | | | NORCOTake 1 | | | tablet by | | | mouth every | | | 4 (four) | | | hours as | | | needed. | | | JANUMET XR | | | 50-500 MG | | | Ef48Edfecsy | | | : 0Generic | | | drug: | | | SitaGLIPtin | | | -MetFORMIN | | | HCl | | | LORazepam | | | 0.5 MG | | | tabletQTY: | | | 30 | | | tabletRefil | | | ls: | | | 0Commonly | | | known as: | | | ATIVANTake | | | 1 tablet by | | | mouth | | | every 4 | | | (four) | | | hours as | | | needed for | | | Anxiety. | | | losartan 25 | | | MG | | | tabletRefil | | | ls: | | | 0Commonly | | | known as: | | | COZAAR | | | metoprolol | | | 25 MG | | | tabletQTY: | | | 30 | | | tabletRefil | | | ls: | | | 11Commonly | | | known as: | | | LOPRESSORTa | | | ke 0.5 | | | tablets by | | | mouth 2 | | | (two) times | | | daily. | | | nicotine 21 | | | | | | MG/24HRQTY: | | | 28 | | | patchRefill | | | s: | | | 0Commonly | | | known as: | | | NICODERM | | | CQPlace 1 | | | patch onto | | | the skin | | | daily for | | | 30 days. | | | You might | | | also be | | | taking | | | other | | | medications | | | not listed | | | above. If | | | you have | | | questions | | | about any | | | of your | | | other | | | medications | | | , talk to | | | the person | | | who | | | prescribed | | | them or | | | your | | | Primary | | | Care | | | Provider. | | | STOP | | | taking | | | these | | | medications | | | | | | acetaminoph | | | en 325 MG | | | tabletCommo | | | nly known | | | as: | | | TYLENOL | | | aspirin 81 | | | MG chewable | | | tablet | | | bisacodyl | | | 10 MG | | | suppository | | | Commonly | | | known as: | | | DULCOLAX | | | magnesium | | | hydroxide | | | 400 MG/5ML | | | suspensionC | | | ommonly | | | known as: | | | MILK OF | | | MAGNESIA | | | metFORMIN | | | 500 MG | | | tabletCommo | | | nly known | | | as: | | | GLUCOPHAGE | | | Where to | | | Get Your | | | Medications | | | You can | | | get these | | | medications | | | from any | | | pharmacy | | | Bring a | | | paper | | | prescriptio | | | n for each | | | of these | | | medications | | | | | | HYDROcodone | | | -acetaminop | | | hen 10-325 | | | MG per | | | tablet | | | LORazepam | | | 0.5 MG | | | tablet | | | warfarin 5 | | | MG tablet | | | Information | | | about | | | where to | | | get these | | | medications | | | is not yet | | | available | | | Ask your | | | nurse or | | | doctor | | | about these | | | | | | medications | | | | | | glimepiride | | | 2 MG | | | tablet | | | Caroline | | | Lissy, | | | MD03/15/2018 | | | 8:53 AM | +---+ + +--------+ +---+ + + | 03/11/ | Procedure | | | | | 2017 | Pass | | | | +--------+ +---+ + + | 03/11/ | Orders Only | | Ronnell Burroughs, | | | 2017 | | | RN | | +--------+ +---+ + + | 03/11/ | Procedure | | | | | 2017 | Pass | | | | +--------+ +---+ + + | 03/11/ | Procedure | | | | | 2017 | Pass | | | | +--------+ +---+ + + | 03/03/ | Orders Only | | Yesenia Witt, | 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, | | | | | | right (HCC) (Primary | | | | | | Dx) | +--------+ +---+ + + | 02/25/ | Anesthesia | | Pete Allen, | | | 2018 | 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 | | +--------+ +---+ + + | 02/25/ | Procedure | | | | | 2017 | Pass | | | | +--------+ +---+ + + | 02/25/ | Surgery | | Amilcar Garcia DPM | FOREFOOT - | 2017 | | | | AMPUTATION | +--------+ +---+ + + | 02/23/ | Anesthesia | | Maribell Ferrera MD | | | 2017 | Event | | | | +--------+ +---+ + + | 02/23/ | Procedure | | | | | 2017 | Pass | | | | +--------+ +---+ + + | 02/23/ | Surgery | | Johan Rashid MD | BYPASS GRAFT - | 2017 | | | | FEMORAL - TIBIAL | +--------+ +---+ + + | 02/22/ | Procedure | | | | | 2017 | Pass | | | | +--------+ +---+ + + | 02/22/ | Procedure | | | | | 2017 | Pass | | | | +--------+ +---+ + + | 02/22/ | Procedure | | | | | 2017 | Pass | | | | +--------+ +---+ + + | 02/22/ | Procedure | | | | | 2017 | Pass | | | | +--------+ +---+ + + | 02/21/ | Hospital | | Rosalva Yates, | Gangrene of right | | 2018 - | Encounter | | Jojo Kwong, | foot ([facility]) (Primary | | | | | Yovani Resendiz, | Dx); Cellulitis of | | 03/01/ | | | MD Peañ, | right lower | | 2018 | | | MD Peter | extremity; Sepsis, | | | | | | due to unspecified | | | | | | organism ([facility] [facility] Foot | | | | | | ulcer with necrosis | | | | | | of bone, right | | | | | | (HCC) | +--------+ +---+ + + +---+ + | | Discharge | | | Summaries | | | - Octavia, | | | Jojo Rangel MD | | | - | | | 02/28/2018 | | | 5:22 AM | | | PDT | | | Formatting | | | of this | | | note may be | | | different | | | from the | | | original.[facility] | | | [facility]: | | | Hospitalist | | | Physician | | | Discharge | | | Summary | | | Patient | | | ID:Hector T | | | [place]: | | | | | | [id number]/ | | | | | | y.o.Admit | | | date: | | | 02/21/2018Di | | | scharge | | | date: | | | 03/01/18Admit | | | ting | | | Physician: | | | Peter | | | [place] | | | MD larisa | | | Discharge | | | Physician: | | | Jojo | | | Octavia, | | | MDConsultan | | | ts: | | | Treatment | | | Team: | | | Consulting | | | Physician: | | | Johan Heranndezye | | | Poi, | | | MDConsultin | | | g | | | Physician: | | | Amilcar | | | Jose, | | | DPMConsulti | | | ng | | | Physician: | | | Juany | | | Ongstad, | | | MDConsultin | | | g | | | Physician: | | | Ketan Hernandez | | | Telly, | | | DPMAdmittin | | | g Provider: | | | Peter | | | [facility] | | | z, | | | MDPrimary | | | Discharge | | | Diagnoses: | | | Principal | | | Problem: | | | Critical | | | lower limb | | | ischemiaAct | | | alyx | | | Problems: | | | Foot ulcer | | | with | | | necrosis of | | | bone, | | | right (HCC) | | | PVD | | | (peripheral | | | vascular | | | disease) | | | (HCC) | | | Essential | | | hypertensio | | | n DM | | | (diabetes | | | mellitus) | | | (HCC)HPI | | | and | | | Hospital | | | Course: | | | From HPI | | | Dr. | | | [facility] | | | z | | | 02/21/18The | | | patient is | | | a | | | 57-year-old | | | male with | | | a | | | significant | | | past | | | medical | | | history of | | | hypertensio | | | n, | | | diabetes, | | | peripheral | | | vascular | | | disease, | | | carotid | | | vascular | | | disease, | | | who | | | presents to | | | the ED | | | status post | | | right | | | second toe | | | amputation | | | with | | | worsening | | | symptoms. | | | The patient | | | with known | | | history of | | | peripheral | | | arterial | | | disease and | | | positive | | | foot ulcer, | | | for which | | | he has been | | | seen by | | | our | | | vascular | | | surgery | | | here at [facility] and | | | by | | | podiatry. | | | Two days | | | ago, there | | | were | | | concerns of | | | an | | | infected | | | ulcer on | | | the second | | | toe, right | | | foot, in | | | the distal | | | phalanx, | | | for which | | | he | | | underwent | | | surgical | | | interventio | | | n and | | | subsequent | | | amputation | | | on 02/19, | | | two days | | | ago. The | | | patient | | | refers that | | | there were | | | no | | | surgical | | | complicatio | | | ns, and | | | when he | | | went today | | | for a | | | followup | | | with his | | | privacy compliance manager, | | | when they | | | took off | | | the | | | bandages | | | there was | | | clear | | | discolorati | | | on of black | | | toes, the | | | foot was | | | cold, and | | | even though | | | the | | | patient | | | refers pain | | | and | | | numbness, | | | he thought | | | it was | | | related to | | | the recent | | | surgical | | | interventio | | | n. Due to | | | these | | | worrisome | | | changes, | | | the patient | | | was | | | subsequentl | | | y brought | | | to the ED | | | for further | | | | | | management. | | | The | | | patient | | | does refer | | | having been | | | compliant | | | with his | | | medications | | | , but he is | | | unsure if | | | he is | | | taking the | | | Plavix. | | | He denies | | | any | | | history of | | | smoking | | | tobacco but | | | does refer | | | to chewing | | | on a daily | | | basis. In | | | the | | | emergency | | | department, | | | the | | | patient has | | | remained | | | hemodynamic | | | ally | | | stable. | | | Vascular | | | surgery was | | | consulted | | | immediately | | | , who are | | | planning to | | | do a | | | diagnostic | | | angiogram | | | with | | | possible | | | intravascul | | | ar | | | interventio | | | ns. At | | | this point | | | the patient | | | will be | | | admitted | | | under the | | | hospitalist | | | service | | | for further | | | | | | management. 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 | | | Popliteal | | | to BI SOLUTIONS ARCHITECT | | | bypass and | | | reversed | | | OSV by | | | Poi, | | | vascular | | | surgery. | | | Then | | | underwent | | | transmetata | | | rsal | | | amputation | | | o 02/25/18He | | | was | | | initiated | | | on IV Zosyn | | | and | | | Vancomycin | | | and was | | | transitione | | | d to | | | Augmentin | | | prior and | | | through | | | discharge.P | | | atient has | | | severe | | | anxiety and | | | was given | | | Benzos for | | | relief.For | | | other | | | co-morbidit | | | ies, his | | | home | | | medications | | | were | | | restarted.H | | | e was | | | advised to | | | quit | | | tobacco | | | use.All | | | questions | | | were | | | answered | | | for patient | | | and his | | | mother who | | | agreed to | | | plan. 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 | | | (HCC) Past | | | Surgical | | | History | | | Procedure | | | Laterality | | | Date | | | FEMORAL | | | TIBIAL | | | BYPASS | | | Right | | | 02/23/2018 | | | Procedure: | | | BYPASS | | | GRAFT - | | | FEMORAL - | | | TIBIAL; | | | Surgeon: | | | Johan Jye | | | Poi, MD; | | | Location: | | | [facility] | | | [place]; | | | Service: | | | Vascular; | | | Laterality: | | | Right; | | | right | | | popliteal | | | to | | | posterior | | | tibial | | | artery | | | bypass with | | | vein | | | harvest | | | FOOT | | | AMPUTATION | | | Right | | | 02/25/2018 | | | Procedure: | | | FOREFOOT - | | | AMPUTATION; | | | Surgeon: | | | Amilcar | | | Jose, DPM; | | | Location: | | | [facility] | | | [place]; | | | Service: | | | Podiatry; | | | Laterality: | | | Right; | | | Right foot | | | transmetata | | | rsal | | | amputation | | | | | | TOE | | | AMPUTATION | | | Right | | | 02/18/2018 | | | | | | VASCULAR | | | SURGERY | | | Discharged | | | Condition: | | | Stable for | | | discharge | | | as stated | | | above.Signi | | | ficant | | | Diagnostic | | | Studies:Us | | | Arminda | | | RestingResu | | | lt Date: | | | 02/22/20181. | | | Ankle | | | brachial | | | indices on | | | the right | | | are | | | compatible | | | with | | | moderate | | | stenosis of | | | the right | | | posterior | | | tibial | | | vessel | | | which could | | | contribute | | | to | | | symptoms 2. | | | Ankle | | | brachial | | | indices on | | | the left no | | | evidence | | | of | | | high-grade | | | disease | | | along the | | | main | | | channel but | | | there is | | | some | | | suppression | | | of toe | | | pressures, | | | mild | | | Electronica | | | lly signed | | | by Sidney | | | S Cresencio, | | | MD on | | | 02/22/2018 | | | 7:58 AMUs | | | Lower | | | Extremty | | | Arterial | | | RightResult | | | Date: | | | . | | | The | | | proximal | | | BI SOLUT[employer] ARCHITECT appears | | | occluded | | | with distal | | | | | | reconstitut | | | ion via | | | collaterals | | | . 2. Mid | | | peroneal | | | artery | | | appears | | | occluded | | | with distal | | | | | | reconstitut | | | ion via | | | collaterals | | | . 3. | | | Probable | | | hemodynamic | | | ally | | | significant | | | stenosis | | | in proximal | | | JOSE ANGEL. 4. 3 | | | vessel | | | monophasic | | | hyperemic | | | distal | | | runoff with | | | monophasic | | | hyperemic | | | flow in | | | dorsalis | | | pedis | | | artery. | | | Electronica | | | lly signed | | | by | | | Pushpender | | | Altamirano on | | | 02/22/2018 | | | 7:50 AMUs | | | Greater | | | Saphenous | | | Vein Map | | | BilatResult | | | Date: | | | . | | | Bilateral | | | greater | | | saphenous | | | vein | | | mapping as | | | described | | | above. | | | Electronica | | | lly signed | | | by Alex | | | Dave | | | Habbu, MD | | | on | | | 02/22/2018 | | | 1:15 PMUs | | | Tcom/ Laser | | | Doppler | | | LimitedResu | | | lt Date: | | | . | | | Skin | | | perfusion | | | pressures | | | as noted in | | | the | | | findings. | | | Reference | | | ranges: * | | | In | | | nondiabetic | | | patients | | | oxygen | | | tension | | | values | | | below 40 | | | mmHg are | | | considered | | | ischemic. | | | Oxygen | | | tension | | | values | | | above 20 mm | | | Hg are | | | required | | | for | | | adequate | | | healing. * | | | In | | | diabetic | | | patients | | | oxygen | | | tension | | | values | | | below 50 | | | mmHg are | | | considered | | | ischemic. | | | Oxygen | | | tension | | | values | | | above 25 mm | | | Hg are | | | required | | | for | | | adequate | | | healing. | | | Electronica | | | lly signed | | | by Alex | | | Dave | | | Habbu, MD | | | on | | | 02/24/2018 | | | 1:11 | | | PMDischarge | | | | | | Vitals:Jocelyn | | | ls: | | | 02/28/18 | | | 0353 | | | 02/28/18 | | | 0848 | | | 02/28/18 | | | 1201 | | | 02/28/18 | | | 1218 BP: | | | (!) 171/95 | | | 187/87 | | | 164/88 BP | | | Location: | | | Right | | | forearm | | | Right | | | forearm | | | Right | | | forearm | | | Pulse: 102 | | | 101 103 | | | Resp: 22 20 | | | 18 20 | | | Temp: 97.7 | | | F (36.5 | | | C) 98.4 | | | F (36.9 | | | C) 98.1 | | | F (36.7 | | | C) | | | TempSrc: | | | Oral Oral | | | Oral SpO2: | | | 91% 95% | | | 96% Weight: | | | 107.5 kg | | | (236 lb | | | 15.9 oz) | | | Height: | | | Discharge | | | | | | Exam:Genera | | | l: Well | | | nourished.P | | | sych: | | | Alert and | | | oriented x | | | 3. Calm, | | | cooperative | | | .Cardiovasc | | | ular: | | | Regular | | | rate and | | | rhythm, no | | | murmurs, no | | | thrills. | | | Normal | | | PMI.Respira | | | tory: Clear | | | to | | | auscultatio | | | n, no | | | wheezing or | | | crackles, | | | breathing | | | non | | | labored.Gas | | | trointestin | | | al: Soft, | | | non-tender, | | | | | | non-distend | | | ed, | | | positive | | | bowel | | | sounds. No | | | HSM.Musculo | | | skeletal: | | | No edema in | | | bilateral | | | lower | | | extremities | | | . No joint | | | swelling.Sk | | | in: Warm | | | and dry, no | | | | | | rashes.Neck | | | : No JVD, | | | Trachea | | | midline.Caroline | | | rological: | | | Non focal. | | | Motor | | | grossly | | | intact.LABS | | | : Recent | | | LabsLab | | | 51 | | | 1 | | | | | | 3 | | | | | | 4 WBC 7.54 | | | 9.41 11.23* | | | RBC 3.66* | | | 3.53* 3.84* | | | HGB 11.2* | | | 11.0* 12.0* | | | HCT 32.3* | | | 31.4* 34.4* | | | MCV 88.3 | | | 89.1 89.6 | | | MCH 30.5 | | | 31.2 31.1 | | | MCHC 34.6 | | | 35.1 34.7 | | | RDW 40.7 | | | 40.7 41.1 | | | PLT 321 288 | | | 269 MPV | | | 7.6 7.6 7.8 | | | DIFFTYPE | | | AUTOMATED | | | AUTOMATED | | | MANUAL | | | Recent | | | LabsLab | | | | | | 1 | | | | | | 3 | | | | | | 4 | | | | | | 0 | | | | | | 0 NA 142 | | | 144 141 < | | | > 137 134* | | | K 4.1 4.0 | | | 4.2 < > | | | 4.1 4.1 CL | | | 107 109 106 | | | < > 102 | | | 97* CO2 28 | | | 26 23 < > | | | 25 28 BUN | | | 12 14 16 < | | | > 15 14 | | | CREATININE | | | 0.8 0.8 0.9 | | | < > 1.0 | | | 1.1 PROT | | | -- -- | | | -- -- | | | 6.8 7.9 | | | BILITOT -- | | | -- -- | | | -- 1.6* | | | 2.0* ALT | | | -- -- | | | -- -- 25 | | | 28 AST -- | | | -- -- | | | -- 21 30 | | | GLUF 199* | | | 179* 218* | | | < > 85 79 < | | | > = values | | | in this | | | interval | | | not | | | displayed.R | | | ecent | | | LabsLab | | | | | | 0 CKTOTAL | | | 32* | | | CKMBINDEX | | | UNABLE TO | | | CALCULATE | | | No results | | | for | | | input(s): | | | PHOS in the | | | last 168 | | | hours. | | | Recent | | | LabsLab | | | | | | 0 MG 1.9 | | | Invalid | | | input(s): | | | ABGDisposit | | | ion: Home | | | or Self | | | CareFollow | | | up:Johan Jye | | | Poi, [id number] | | | [place] | | | [address] | | | [place] | | | [place] | | | [phone] | | [phone] | | | ule an | | | appointment | | | as soon as | | | possible | | | for a visit | | | in 2 | | | weeksFor | | | wound | | | re-checkJoh | | | n [place], | | | [id number] | | | [address] | | | [place] | | | [phone] | | | [phone] | | | In 3 days | | | Medication | | | List START | | | taking | | | these | | | medications | | | | | | acetaminoph | | | en 325 MG | | | tabletQTY: | | | 30 | | | tabletRefil | | | ls: | | | 0Commonly | | | known as: | | | TYLENOLTake | | | 2 tablets | | | by mouth | | | every 6 | | | (six) hours | | | as needed | | | for up to | | | 10 days. | | | amoxicillin | | | -clavulanat | | | e 875-125 | | | MG per | | | tabletQTY: | | | 14 | | | tabletRefil | | | ls: | | | 0Commonly | | | known as: | | | AUGMENTINTa | | | ke 1 tablet | | | by mouth | | | every 12 | | | (twelve) | | | hours for 7 | | | days. | | | atorvastati | | | n 40 MG | | | tabletQTY: | | | 30 | | | tabletRefil | | | ls: | | | 11Commonly | | | known as: | | | LIPITORTake | | | 1 tablet | | | by mouth | | | nightly. | | | bisacodyl | | | 10 MG | | | suppository | | | QTY: 1 | | | suppository | | | Refills: | | | 0Commonly | | | known as: | | | DULCOLAXPla | | | ce 1 | | | suppository | | | rectally | | | daily as | | | needed for | | | up to 10 | | | days. | | | HYDROcodone | | | -acetaminop | | | hen 10-325 | | | MG per | | | tabletQTY: | | | 30 | | | tabletRefil | | | ls: | | | 0Commonly | | | known as: | | | NORCOTake 1 | | | tablet by | | | mouth every | | | 4 (four) | | | hours as | | | needed.Repl | | | aces: | | | HYDROcodone | | | -acetaminop | | | hen 5-325 | | | MG per | | | tablet | | | LORazepam | | | 0.5 MG | | | tabletQTY: | | | 30 | | | tabletRefil | | | ls: | | | 0Commonly | | | known as: | | | ATIVANTake | | | 1 tablet by | | | mouth | | | every 4 | | | (four) | | | hours as | | | needed for | | | Anxiety. | | | magnesium | | | hydroxide | | | 400 MG/5ML | | | suspensionQ | | | TY: 360 | | | mLRefills: | | | 0Commonly | | | known as: | | | MILK OF | | | MAGNESIATak | | | e 30 mLs by | | | mouth | | | daily as | | | needed for | | | Constipatio | | | n for up to | | | 10 days. | | | nicotine 21 | | | | | | MG/24HRQTY: | | | 28 | | | patchRefill | | | s: | | | 0Commonly | | | known as: | | | NICODERM | | | CQPlace 1 | | | patch onto | | | the skin | | | daily for | | | 30 days. | | | polyethylen | | | e glycol | | | packetQTY: | | | 14 | | | eachRefills | | | : | | | 0Commonly | | | known as: | | | GLYCOLAXTak | | | e 17 g by | | | mouth daily | | | as needed | | | for up to 3 | | | days. | | | CONTINUE | | | taking | | | these | | | medications | | | aspirin | | | 81 MG | | | chewable | | | tabletRefil | | | ls: 0 | | | clopidogrel | | | 75 MG | | | tabletQTY: | | | 90 | | | tabletRefil | | | ls: | | | 0Commonly | | | known as: | | | PLAVIXTake | | | 1 tablet by | | | mouth | | | daily. | | | glimepiride | | | 4 MG | | | tabletRefil | | | ls: | | | 0Commonly | | | known as: | | | AMARYL | | | JANUMET XR | | | 50-500 MG | | | [id number] | | | : 0Generic | | | drug: | | | SitaGLIPtin | | | -MetFORMIN | | | HCl | | | losartan 25 | | | MG | | | tabletRefil | | | ls: | | | 0Commonly | | | known as: | | | COZAAR | | | metFORMIN | | | 500 MG | | | tabletRefil | | | ls: | | | 0Commonly | | | known as: | | | GLUCOPHAGE | | | metoprolol | | | 25 MG | | | tabletQTY: | | | 30 | | | tabletRefil | | | ls: | | | 11Commonly | | | known as: | | | LOPRESSORTa | | | ke 0.5 | | | tablets by | | | mouth 2 | | | (two) times | | | daily. | | | You might | | | also be | | | taking | | | other | | | medications | | | not listed | | | above. If | | | you have | | | questions | | | about any | | | of your | | | other | | | medications | | | , talk to | | | the person | | | who | | | prescribed | | | them or | | | your | | | Primary | | | Care | | | Provider. | | | STOP | | | taking | | | these | | | medications | | | | | | HYDROcodone | | | -acetaminop | | | hen 5-325 | | | MG per | | | tabletCommo | | | nly known | | | as: | | | NORCOReplac | | | ed by: | | | HYDROcodone | | | -acetaminop | | | hen 10-325 | | | MG per | | | tablet | | | Where to | | | Get Your | | | Medications | | | These | | | medications | | | were sent | | | to [facility] | | | [facility]acy | | | [address] | | [place], [place] - | | | [address] [address] | | [address] [address] | [address], | | | [facility] | | | [place] [address] | | | Phone: | | | [phone] | | | 0 | | | acetaminoph | | | en 325 MG | | | tablet | | | amoxicillin | | | -clavulanat | | | e 875-125 | | | MG per | | | tablet | | | atorvastati | | | n 40 MG | | | tablet | | | bisacodyl | | | 10 MG | | | suppository | | | | | | magnesium | | | hydroxide | | | 400 MG/5ML | | | suspension | | | | | | metoprolol | | | 25 MG | | | tablet | | | nicotine 21 | | | MG/24HR | | | polyethylen | | | e glycol | | | packet You | | | can get | | | these | | | medications | | | from any | | | pharmacy | | | Bring a | | | paper | | | prescriptio | | | n for each | | | of these | | | medications | | | | | | HYDROcodone | | | -acetaminop | | | hen 10-325 | | | MG per | | | tablet | | | LORazepam | | | 0.5 MG | | | tablet Jojo | | | Dudley, | | | MD/09/2017 | | | 2:11 | | | PMDischarge | | | took>30 | | | minutes, to | | | include | | | final | | | examination | | | , | | | discussion | | | of | | | admission, | | | and | | | preparation | | | of | | | prescriptio | | | ns, | | | instruction | | | s for | | | ongoing | | | care, | | | follow up | | | and | | | dictation | | | of summary. | +---+ + +--------+ +---+---+---+ | 02/21/ | Procedure | | | | | 2018 | Pass | | | | +--------+ +---+---+---+ from Last 3 Months Family History + + +------+ + | Medical History | Relation | Name | Comments | + + +------+ + | Diabetes type II | Father | | | + + +------+ + | Heart disease | Father | | | + + +------+ + | Hypertension | Father | | | + + +------+ + | No Known Problems | Mother | | | + + +------+ + + +------+--------+ + | Relation | Name | Status | Comments | + +------+--------+ + | Father | | | | + +------+--------+ + | Mother | | | | + +------+--------+ + Social History + +-------+ +--------+------+ | [...] PM PDT | + + + + Plan of Treatment +--------+---------+ + + + | Date | Type | Specialty | Care Team | Description | +--------+---------+ + + + | 04/18/ | Office | | Chris Duggan DNP | | | 2018 | Visit | | [address] | | | | | | [place] | | | | | | [address] | | | | | | | | +--------+---------+ + + + + + + + + | Health Maintenance | Due Date | Last Done | Comments | + + + + + | Diabetic Eye Exam | | | | | | 3 | | | + + + + + | Diabetic Foot Exam | | | | | | 3 | | | + + + + + | Microalbumin | | | | | Screening | [...] | + + + + + | Colon Cancer | | | | | Screening | 3 | | | | (Colonoscopy) | | | | + + + + + | Vaccine: Influenza | | | | | (#1) | 8 | | | + + + + + | Hemoglobin A1c | | 03/13/2018, 03/12/2018, | | | | 8 | 02/22/2018 | | + + + + + [...] | + +--------+ + + + | REGIONAL BLOCK | Routin | 03/31/2018 | | | | | e | 3:05 PM | | | | | | PDT | | | + +--------+ + + + +---+--------+ | | | | | Proced | | | ure | | | Note - | | | | | | Alejandro | | | , | | | Pete | | | , 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 | | | - | | | | | | 2017 | | | 3:05 | | | PM PDT | | | | | | Region | | | al | | | BlockS | | | tart | | | time: | | | 03/31/20 | | | 18 | | | 2:55 | | | PMWhat | | | Type: | | | | | | Adduct | | | or | | | Canal/ | | | Distal | | | | | | Femora | | | lPosit | | | ion: | | | supine | | | Prep: | | | Chlorh | | | exidin | | | e | | | Isopro | | | pyl | | | Alcoho | | | lPrean | | | esthet | | | ic | | | Checkl | | | istCom | | | pleted | | | : | | | patien | | | t | | | identi | | | fied, | | | IV | | | checke | | | d, | | | site | | | marked | | | , | | | risks | | | and | | | benefi | | | ts | | | discus | | | sed, | | | monito | | | rs and | | | | | | equipm | | | ent | | | checke | | | d, | | | timeou | | | t | | | perfor | | | med | | | and | | | post-o | | | p pain | | | | | | manage | | | mentNe | | | edleIn | | | jectio | | | n | | | techni | | | que: | | | Single | | | -shotL | | | ength: | | | 4 | | | cmTech | | | niqueU | | | ltraso | | | und | | | guided | | | Narrat | | | alyx | | | End | | | time: | | | 8/2/20 | | | 18 | | | 2:58 | | | PMInje | | | ction | | | made | | | in 25 | | | mL | | | divide | | | d | | | doses | | | with | | | aspira | | | tion | | | of no | | | blood. | | | | | | Events | | | : no | | | blood | | | aspira | | | francois | | | and no | | | | | | parest | | | hesiaA | | | dditio | | | nal | | | NotesR | | | /B/O | | | d/w | | | pt. + | | | consen | | | t | | | obtain | | | ed IV. | | | Pt | | | supine | | | w/ | | | leg | | | out | | | for | | | exposu | | | re. | | | Area | | | cleane | | | d w/ | | | chloro | | | prep. | | | 3cc 1% | | | lido | | | plain | | | skin | | | wheal, | | | 17g | | | tuohy | | | needle | | | in | | | under | | | [place] | | | guidan | | | ce. No | | | heme, | | | no | | | parest | | | hesias | | | . | | | Nerve | | | and | | | artery | | | well | | | visual | | | ized. | | | 25cc | | | 0.5% | | | ropivi | | | gretel | | | inject | | | ed all | | | | | | around | | | the | | | nerve( | | | s) in | | | 5cc | | | increm | | | ents | | | with | | | negati | | | ve | | | aspira | | | tions | | | betwee | | | n. Pt | | | tolera | | | francois | | | proced | | | ure | | | well. | | | | +---+--------+ + +--------+ + + + | POCT [...] + +--------+ + + + | US BYPASS GRAFT | Routin | 03/11/2018 | Foot ulcer with | Results for this | | LOWER EXTREMITY | e | 12:32 PM | necrosis of bone, | procedure are in the | | UNILATERAL | | PDT | right (HCC) | results section. | + +--------+ + [...] + | YUSEF BRIGHT | MICHAELA | 02/25/2018 | | Results [...] + | VANCOMYCIN, TROUGH | MICHAELA | 02/23/2018 | | Results [...] | + +--------+ + + + | [facility] CARD PANEL W/O | STAT | 02/21/2018 | | Results for this | | TRP (ED ONLY) | | 9:00 PM | | procedure are in the | | | | PDT | | results section. | + +--------+ + + + | [facility] NINA LACTIC | STAT | 02/21/2018 | | [...] + + from Last 3 Months Results POCT glucose (04/04/2018 11:21 AM)Only the most recent of 70 results within the time period is included. + + + + + | Component | Value | Ref Range | Performed At | + + + + + | GLUCOSE,POC SCREEN | 306 (H)Comment: Testing | 65 - 99 mg/dL | [facility] | | | performed at [facility];[address] | | | | [address];[place] | | | | | [id number] | | | + + + + + + + + + + | Performing | Address | City/State/Zipcode | Phone Number | | Organization | | | | + + + + + | [facility] | [address] | [place] [address] | | + + + + + CBC w/auto diff (reflex to manual) (04/04/2018 4:24 AM)Only the most recent of 16 results within the time period is included. + + + + + | Component [...] | [facility] | | | performed at [facility], [facility] [address] | | LABORATORY | | | [address], | | | | | [place] [address] | | | + + + + + + + | Specimen | + + | Blood | + + + + + + + | Performing | Address | City/State/Zipcode | Phone Number | | Organization | | | | + + + + + | [facility] | [address] | [place] [address] | [phone] | | LABORATORY | [address] | | | + + + + + Basic metabolic panel (04/02/2018 4:33 AM)Only the most recent of 11 results within the hi period is included. + + + + + | Component [...] (H) | 65 - 99 mg/dL | [facility] | | | | | LABORATORY | + + + + + | BUN | 18 | 8 - 25 mg/dL | [facility] | | | | | LABORATORY | + + + + + | CREATININE | 0.8 | 0.70 - 1.30 mg/dL | [facility] [facility] | | | | | LABORATORY | + + + + + | BUN/CREAT | 23 | | [facility] | | | | | LABORATORY | + + + + + | CALCIUM | 8.1 (L) | 8.5 - 10.5 mg/dL | [facility] | | | | | LABORATORY | + + + + + | EGFR | >60Comment: GFR <60: | >60 mL/min/1.73m2 | [facility] | | | CHRONIC KIDNEY DISEASE, | [...] | | | | | performed at [facility], [address] | | | | [facility], | | | | | [place], [place] [address] | | | + + + + + + + | Specimen | + + | Blood | + + + + + + + | Performing | Address | City/State/Zipcode | Phone Number | | Organization | | | | + + + + + | [facility] | [address] | [place] [address] | [phone] | | LABORATORY | [address] | | | + + + + + Protime-INR (04/01/2018 9:23 AM)Only the most recent of 8 results within the time period i s included. + + + + + | Component | Value | Ref Range | Performed At | + + + + + | INR | 1.1Comment: REFERENCE | | [facility] | | | RANGE:0.9 [...] | | | | | performed at [facility];[address] | | | | | [address];[place], [place] | | | | | [address] | | | + + + + + + + | Specimen | + + | Blood | + + + + + + + | Performing | Address | City/State/Zipcode | Phone Number | | Organization | | | | + + + + + | [facility] | [address] | [place] [address] | | + + + + + Pathology histology - tissue (04/01/2018)Only the most recent of 2 results within the time period is included. + + | Specimen | + + | Tissue | + + + + + | Narrative | Performed At | + + + | SPECIMEN(S): A Rt. BELOW KNEE AMPUTATION SPECIMEN SOURCE: A. | [facility] | | Rt. BELOW KNEE [...] Received fresh designated | | | "right rxivb-ykt-vlmv amputation" consists of a right chdsr-mii-xudx | | | amputated leg that is 29.5 cm from cuda-oi-iinxpkjvh margin and has a | | | [...] | surgical resection margin is grossly viable. Court Recording Monitor sections | | | are submitted in [...] preparation was performed | | | by [email or web address], [facility], [address] | | | [place] [address] ([place] [employer]man: Ha [place] M.D.; | | | [facility]#: [id number]). Diagnostician: Breann Melara MD Pathologist | | | Electronically Signed 04/04/2018 | | + + + + +---------+ + + | Performing | Address | City/State/Zipcode | Phone Number | | Organization | | | | + +---------+ + + | [facility] | | | | + +---------+ + + Type and screen (03/31/2018 6:13 AM)Only the most recent of 2 results within the time yuliya od is included. + + + + + | Component | Value | Ref Range | Performed At | + + + + + | ABO/RH(D) | A POSITIVE | | [facility] | + + + + + | ANTIBODY SCREEN | NEGATIVE | | [facility] | + + + + + | ARM BAND NUMBER | [id number] | | [facility] | | | performed at [facility];[address] | | | | | [address];[place], [place] | | | | | [address] | | | + + + + + + + | Specimen | + + | Blood | + + + + + + + | Performing | Address | City/State/Zipcode | Phone Number | | Organization | | | | + + + + + | [facility] | [address] | [place] [address] | | + + + + + Magnesium (03/31/2018 6:13 AM)Only the most recent of 3 results within the time period is included. + + + + + | Component | Value | Ref Range | Performed At | + + + + + | MAGNESIUM | 2.1Comment: Testing | 1.7 - 2.4 mg/dL | [facility] | | | performed at [facility], [address] | | LABORATORY | | | [address], | | | | | [place] [address] | | | + + + + + + + | Specimen | + + | Blood | + + + + + + + | Performing | Address | City/State/Zipcode | Phone Number | | Organization | | | | + + + + + | [facility] | [address] | [place] [address] | [phone] | | LABORATORY | [address]. | | | + + + + + Comprehensive metabolic panel (03/31/2018 6:13 AM)Only the most recent of 3 results within the time period is included. + + + + + | Component [...] | | | | | performed at [facility], [address] | | | | | [facility], | | | | | [place] [address] | | | + + + + + + + | Specimen | + + | Blood | + + + + + + + | Performing | Address | City/State/Zipcode | Phone Number | | Organization | | | | + + + + + | [facility] | [address] | [place] [address] | [phone] | | LABORATORY | [address] | | [...] + + + + | Calculated [address] | 9 | degrees | [facility] | + + + + + | Calculated [address] | 53 | degrees | [facility] | + + + + + | Calculated [address] | 53 | degrees | [facility] | + + + + + | Diagnosis | Normal sinus | | [facility] | | | rhythmNormal [...] -COMPUTER (500), | | | | | food editor Nahid John | | | | | Jesse (123) on 03/31/2018 | | | | | 3:26:17 AM | | | + + + + + + + + + + | Performing | Address | City/State/Zipcode | Phone Number | | Organization | | | | + + + + + | [facility] | [address] | [place] [address] | | + + + + + Blood Culture Set 2 (03/30/2018 6:16 PM)Only the most recent of 2 results within the time period is included. + + + + + | Component | Value | Ref Range | Performed At | + + + + + | Specimen Description | BLOOD | | [facility] | | | | | LABORATORY | + + + + + | SPECIAL REQUESTS | MARK | | [facility] | + + [...] | + + + + + | [facility] | [address] | [place] [address] | [phone] | | LABORATORY | [address]. | | | + + + + + | [facility] | [address] | [place] [address] | | + + + + + MRSA by PCR (03/30/2018 5:39 PM)Only the most recent of 2 results within the time period i s included. + + + + + | Component | Value | Ref Range | Performed At | + + + + + | SOURCE | NARES(NOSE) | | [facility] | + + + + + | MRSA PCR | NEGATIVEComment: Testing | NEGATIVE | [facility] | | | performed at [facility];[address] | | | | | [address];[place], [place] | | | | | [address] | | | + + + + + + + | Specimen | + + | Nasopharyngeal - | | Nares(Nose) | + + + + + + + | Performing | Address | City/State/Zipcode | Phone Number | | Organization | | | | + + + + + | [facility] | [address] | [place] [address] | | + + + + + Troponin I (03/30/2018 5:12 PM) + + + + + | Component | Value | Ref Range | Performed At | + + + + + | TROPONIN I | <0.020Comment: 0.00 to | 0.00 - 0.10 ng/mL | [facility] | | | 0.10 [...] | | | | CRITERIA FOR ACUTE NH | | | | | Testing performed at | | | | | [facility];[address] | [address];[place] [address] | | | + + + + + + + + + + | Performing | Address | City/State/[facility] | Phone Number | | Organization | | | | + + + + + | [facility] | [address] | [place] [address] | | + + + + + aPTT (03/30/2018 5:12 PM)Only the most recent of 17 results within the time period is incl uded. + + + + + | Component | Value | Ref Range | Performed At | + + + + + | APTT | 55 (H)Comment: Testing | 23 - 32 seconds | [facility] | | | performed at [facility];[address] | | | | | [address];[place] | | | | | [address] | | | + + + + + + + | Specimen | + + | Blood | + + + + + + + | Performing | Address | City/State/Zipcode | Phone Number | | Organization | | | | + + + + + | [facility] | [address] | [place] [address] | | + + + + + Sedimentation Rate (ESR) (03/30/2018 5:12 PM) + + + + + | Component | Value | Ref Range | Performed At | + + + + + | ESR | 67 (H)Comment: Testing | 0 - 20 mm/Hr | [facility] | | | performed at [facility];[address] | | | | | [address];[place] | | | | | [address] | | | + + + + + + + | Specimen | + + | Blood | + + + + + + + | Performing | Address | City/State/Zipcode | Phone Number | | Organization | | | | + + + + + | [facility] | [address] | [place] [address] | | + + + + + C-reactive protein (03/30/2018 5:12 PM) + + + + + | Component | Value | Ref Range | Performed At | + + + + + | CRP | 3.1 (H)Comment: Testing | <0.5 mg/dL | [facility] | | | performed at [facility];[address] | [address];[place] | | | | | [address] | | | + + + + + + + | Specimen | + + | Blood | + + + + + + + | Performing | Address | City/State/Zipcode | Phone Number | | Organization | | | | + + + + + | [facility] | [address] | [place] [address] | | + + + + + Blood Culture Set 1 (03/30/2018 5:11 PM)Only the most recent of 2 results within the time period is included. + + + + + | Component [...] + + + | [facility] | [address] | [place] [address] | [phone] | | LABORATORY | [address] | | | + + + + + Hemoglobin A1c (03/13/2018 3:30 AM)Only the most recent of 3 results within the time perio d is included. + + + + + | Component | Value | Ref Range | Performed At | + + + + + | HEMOGLOBIN A1C | 6.8 (H)Comment: The | 4.0 - 6.0 % | [facility] | | | [place] Diabetes | | LABORATORY | | | [...] | 148Comment: The ADA | mg/dL | [facility] | | GLUCOSE | considers an eAG [...] | | | | | performed at [facility], [address] | | | | | [address], | | | | | [place] [address] | | | + + + + + + + | Specimen | + + | Blood | + + + + + + + | Performing | Address | City/State/Zipcode | Phone Number | | Organization | | | | + + + + + | [facility] | [address] | [place] [address] | [phone] | | LABORATORY | [address]. | | | + + + + + Phosphorus (03/12/2018 4:52 AM) + + + + + | Component | Value | Ref Range | Performed At | + + + + + | PHOSPHORUS | 3.7Comment: Testing | 2.3 - 4.8 mg/dL | [facility] | | | performed at [facility], [address] | | LABORATORY | | | [address], | | | | | [place] [address] | | | + + + + + + + | Specimen | + + | Blood | + + + + + + + | Performing | Address | City/State/Zipcode | Phone Number | | Organization | | | | + + + + + | [facility] | [address] | [place] [address] | [phone] | | LABORATORY | [address] | | | + + + + + IR guidance vascular access US (03/11/2018 6:13 PM)Only the most recent of 2 results withi n the time period is included. + + + | Narrative | Performed [...] | + + + + + | [facility] | [address] | [place] [address] | | + + + + + IR thrombectomy arterial includes thombolytic injection (03/11/2018 5:58 PM) + + + | Impressions | Performed At | + + + | 1. Right below-knee popliteal artery to distal posterior tibial | [facility] | | artery bypass was occluded. 2. [...] | tibial artery bypass graft using 4 Eritrean Sol[employer] AngioJet | | | catheter 5. Angioplasty of right posterior tibial artery using 2.5 x | | | 120 mm angioplasty balloon 6. Angioplasty of right leg bypass graft | | | and popliteal artery using 4 x 150 mm angioplasty balloon SURGEON: | | | Long Ferrera MD PHP ENGINEER: None ANESTHESIA: Moderate sedation and | | [...] and | | | brought to the Candy Waffle Assembler. The patient was placed supine on the [...] wire and up sized to a 4 Eritrean sheath. A | | | Omni flush [...] inserted over the catheter and the 4 Eritrean sheath was removed. A 7 | | | Eritrean destination sheath was then inserted over the [...] artery bypass was then performed using 4 Eritrean | | | Solent Dista AngioJet catheter. [...] artery bypass graft using | | 4 E[place]an [employer] AngioJet catheter5. Angioplasty of right [...] identified and brought | | to the Candy Waffle Assembler. The patient was placed supine on the [...] | and up sized to a 4 Eritrean sheath. A Omni flush catheter was then [...] inserted over the catheter and the 4 Eritrean sheath was removed. A 7 Eritrean | | destination sheath was then inserted [...] was | | then performed using 4 Eritrean Sol[employer] Dist[employer] AngioJet catheter. After mechanical | [...] | + + + + + | [facility] | [address] | [place] [address] | | + + + + + IR angiogram extremity right (03/11/2018 5:58 PM)Only the most recent of 2 results within the time period is included. + + + | Impressions | Performed At | + + + | 1. Right below-knee popliteal artery to distal posterior tibial | [facility] | | artery bypass was occluded. 2. [...] | tibial artery bypass graft using 4 Eritrean [employer] AngioJet | | | catheter 5. Angioplasty of right posterior tibial artery using 2.5 x | | | 120 mm angioplasty balloon 6. Angioplasty of right leg bypass graft | | | and popliteal artery using 4 x 150 mm angioplasty balloon SURGEON: | | | Long Ferrera MD PHP ENGINEER: None ANESTHESIA: Moderate sedation and | | [...] and | | | brought to the Candy Waffle Assembler. The patient was placed supine on the [...] wire and up sized to a 4 Eritrean sheath. A | | | Omni flush [...] inserted over the catheter and the 4 Eritrean sheath was removed. A 7 | | | Eritrean destination sheath was then inserted over the [...] artery bypass was then performed using 4 Eritrean | | | Solent Dista AngioJet catheter. [...] artery bypass graft using | | 4 Eritrean Sol[employer] AngioJet catheter5. Angioplasty of right [...] identified and brought | | to the Candy Waffle Assembler. The patient was placed supine on the [...] | and up sized to a 4 Eritrean sheath. A Omni flush catheter was then [...] inserted over the catheter and the 4 Eritrean sheath was removed. A 7 Eritrean | | destination sheath was then inserted [...] was | | then performed using 4 Eritrean Solent Dista AngioJet catheter. After mechanical | [...] | + + + + + | [facility] | [address] | [place] [address] | | + + + + + US bypass graft lower extremity unilateral (03/11/2018 12:32 PM) + + + | Impressions | Performed At | + + + | 1. Inflow via the right common femoral artery, superficial | [facility] | | femoral artery and proximal popliteal [...] + + + | HECTOR WALKER US BYPASS GRAFT LOWER EXTREMITY UNILATERAL | [facility] | | 03/11/2018 12:32 PM HISTORY: 57 [...] Distal anastomosis: Occluded. | | | Outflow (BI SOLUTIONS ARCHITECT): Occluded. | | + + + + + | Procedure Note | + + | Zachariah, Rad Results In - 03/11/2018 12:59 PM PDT HECTOR NASHPTONUS BYPASS GRAFT LOWER | | EXTREMITY UNILATERAL03/11/2018 [...] | | Occluded.Graft distal: Occluded.Distal anastomosis: Occluded.Outflow (BI SOLUTIONS ARCHITECT): | | Occluded.IMPRESSION:1. Inflow via the right [...] Occluded. | |Distal anastomosis: Occluded. | |Outflow (BI SOLUTIONS ARCHITECT): Occluded. | | | |IMPRESSION: | |1. [...] | + + + + + | [facility] | [address] | [place] [address] | | + + + + + Cardiac Panel (03/11/2018 12:15 PM)Only the most recent of 2 results within the time period is included. + + + + + | Component | Value | Ref Range | Performed At | + + + + + | WBC | 7.36 | 3.80 - 11.00 K/uL | [facility] | + + + + + | RBC | 3.92 (L) | 4.20 - 5.70 M/uL | [facility] | + + + + + | HGB | 11.8 (L) | 13.2 - 17.0 g/dL | [facility] | + + + + + | HCT | 33.9 (L) | 39.0 - 50.0 % | [facility] | + + + + + | MCV | 86.6 | 80.0 - 100.0 fl | [facility] | + + + + + | MCH | 30.0 | 27.0 - 34.0 pg | [facility] | + + + + + | MCHC | 34.7 | 32.0 - 35.5 g/dL | [facility] | + + + + + | RDW SD | 41.1 | 37 - 53 fl | [facility] | + + + + + | PLT | 323 | 150 - 400 K/uL | [facility] | + + + + + | MPV | 7.8 | fl | [facility] | + + + + + | DIFF TYPE | AUTOMATED | | [facility] | + + + + + [...] 5.86 | 1.90 - 7.40 K/uL | [facility] | + + + + + | LYMPHOCYTES ABS | 0.99 (L) | 1.00 - 3.90 K/uL | [facility] | + + + + + | MONOCYTES ABS | 0.39 | 0.00 - 0.80 K/uL | [facility] | + + + + + | EOSINOPHILS ABS | 0.05 | 0.00 - 0.50 K/uL | [facility] | + + + + + | BASOPHILS ABS | 0.07 | 0.00 - 0.10 K/uL | [facility] | + + + + + | SODIUM | 139 | 135 - 145 mmol/L | [facility] | + + + + + | POTASSIUM | 4.5 | 3.5 - 4.9 mmol/L | [facility] | + + + + + | CHLORIDE | 102 | 99 - 109 mmol/L | [facility] | + + + + + | CO2 | 27 | 23 - 32 mmol/L | [facility] | + + + + + | ANION GAP AGAP | 14 | 5 - 20 mmol/L | [facility] | + + + + + | GLUCOSE | 190 (H) | 65 - 99 mg/dL | [facility] | + + + + + | BUN | 19 | 8 - 25 mg/dL | [facility] | + + + + + | CREATININE | 0.86 | 0.70 - 1.30 mg/dL | [facility] | + + + + + | BUN/CREAT | 22 | | [facility] | + + [...] 4.9 | 1.3 - 4.9 g/dL | [facility] | + + + + + | A/G | 0.5 (L) | 1.0 - 2.4 | [facility] | + + + + + | TBIL | 0.6 | 0.1 - 1.5 mg/dL | [facility] | + + + + + | ALK PHOS | 95 | 35 - 115 U/L | [facility] | + + + + + | AST | 23 | 10 - 45 U/L | [facility] | + + + + + | ALT | 39 | 10 - 65 U/L | [facility] | + + + + + | EGFR | >60Comment: GFR <60: | >60 mL/min/1.73m2 | [facility] | | | CHRONIC [...] (L) | 55 - 400 U/L | [facility] | + + + + + | INR | 1.1Comment: REFERENCE | | [facility] | | | RANGE:0.9 [...] 31 | 23 - 32 seconds | [facility] | + + + + + | MMB | 1.3 | 0.5 - 3.6 ng/mL | [facility] | + + + + + | CK-MB Index | 3.3Comment: CK INDEX | | [facility] | | | INTERPRETATION: [...] | | | | | performed at [facility] | | | | | [address];[place], [place] | | | | | [address] | | | + + + + + + + + + + | Performing | Address | City/State/Zipcode | Phone Number | | Organization | | | | + + + + + | [facility] | [address] | [place] [address] | | + + + + + Vancomycin, trough (02/25/2018 8:35 AM)Only the most recent of 2 results within the time shameka carr is included. + + + + + | Component | Value | Ref Range | Performed At | + + + + + | VANCOMYCIN,TROUGH | 18.6Comment: 15 to 20 | 10 - 20 ug/mL | [facility] | | | ug/mL for meningitis, | | | | | osteomyelitis, | | | | | endocarditis, sepsis, or | | | | | healthcare associated | | | | | pneumonia, or an MODESTA | | | | | equal to or greater than | | | | | 1.0 ug/mLTesting | | | | | performed at [facility];[address];[place], [place] | | | | | [address] | | | + + + + + + + + + + | Performing | Address | City/State/Zipcode | Phone Number | | Organization | | | | + + + + + | [facility] | [address] | [place] [address] | | + + + + + [...] TRANS OXY TENSION MEASUREMENT/ LASER DOPPLER | [facility] | | LIMITED 02/24/2018 11:51 AM HISTORY: [...] In - 02/24/2018 1:17 PM PDT HECTOR BOUCHER OXY SVETLANA | | MEASUREMENT/ LASER DOPPLER LIMITED02/24/2018 11:51 [...] [facility] | [address] | [place] [address] | | + + + + + POC arterial CG8+ (02/23/2018 8:55 PM) + + + + + | Component | Value | Ref Range | Performed At | + + + + + | pH, Art | 7.362 | 7.350 - 7.450 | [facility] | + + + [...] 2 | 0.0 - 2.0 mmol/L | [facility] | + + [...] (L) | 1.12 - 1.32 mmol/L | [facility] | + + + + + | POC GLUCOSE | 114 (H) | 65 - 99 mg/dL | [facility] | + + + + + | POC HCT | 34 (L) | 40.0 - 50.0 % | [facility] | + + + + + | POC HGB | 11.6 (L)Comment: Testing | 13.7 - 16.7 g/dL | [facility] | | | performed at [facility];[address] | | | | | [address];[place], [place] | | | | | [address] | | | + + + + + + + + + + | Performing | Address | City/State/Zipcode | Phone Number | | Organization | | | | + + + + + | [facility] | [address] | [place] [address] | | + + + + + IR angioplasty tiboperoneal additional vessel (02/22/2018 8:55 PM) + + + | Narrative | Performed At | + + + | DATE OF PROCEDURE: 02/22/2018 SURGEON: Johan Rashid MD | [facility] | | PREOPERATIVE DIAGNOSIS: 1) [...] was brought to | | | the sawyer cork slabs and placed on supine position. Moderate sedation [...] DATE OF PROCEDURE: 02/22/2018SURGEON: | | Johan Rashid MDPREOPERATIVE DIAGNOSIS:1) Right leg ischemia with non [...] DETAIL: The patient was brought to the sawyer cork slabs and placed on | | supine position. [...] + + | [facility] | [address] | [place] [address] | | + + + + + IR angioplasty tibioperoneal (02/22/2018 8:55 PM) + + + | Narrative | Performed At | + + + | DATE OF PROCEDURE: 02/22/2018 SURGEON: Johan Rashid MD | [facility] | | PREOPERATIVE DIAGNOSIS: [...] was brought to | | | the sawyer cork slabs and placed on supine position. Moderate sedation [...] DETAIL: The patient was brought to the sawyer cork slabs and placed on | | supine position. [...] | + + + + + | [facility] | [address] | [place] [address] | | + + + + + IR aortagram abdominal (02/22/2018 8:55 PM) + + + | Narrative | Performed At | + + + | DATE OF PROCEDURE: 02/22/2018 SURGEON: Johan Rashid MD | [facility] | | PREOPERATIVE DIAGNOSIS: 1) [...] was brought to | | | the sawyer cork slabs and placed on supine position. Moderate sedation [...] DETAIL: The patient was brought to the sawyer cork slabs and placed on | | supine position. [...] | + + + + + | [facility] | [address] | [facility] [place] [address] | | + + + + + POC ACT, arterial (02/22/2018 8:00 PM) + + + + + | Component | Value | Ref Range | Performed At | + + + + + | POC ACT | 241 (H)Comment: Testing | 74 - 137 seconds | [facility] | | | performed at [facility];[address];[place] | | | | | [address] | | | + + + + + + + + + + | Performing | Address | City/State/Zipcode | Phone Number | | Organization | | | | + + + + + | [facility] | [address] | [place] [address] | | + + + + + US greater saphenous vein map bilat (02/22/2018 1:12 PM) + + + | Impressions | Performed At | + + + | 1. Bilateral greater saphenous vein mapping as described above. | [facility] | | | [facility] | + + + + + + | Narrative | Performed At | + + + | HECTOR WALKER 1960 US GREATER SAPHENOUS VEIN MAPPING [...] In - 02/22/2018 1:20 PM PDT [facility] | | SAPHENOUS VEIN MAPPING BILATERAL02/22/2018 [...] | + + + + + | [facility] | [address] | [place] [address] | | + + + + + [...] | Claudio Soni Results In - 02/22/2018 8:03 AM PDT HISTORY: 57 year-old [...] | + + + + + | [facility] | [address] | [place] [address] | | + + + + + [place] lower extremty arterial right (02/22/2018 7:55 AM) + + + | Impressions | Performed At | + + + | 1. The proximal BI SOLUTIONS ARCHITECT appears occluded with distal reconstitution | [facility] [...] systolic velocities (cm/s) / Doppler Waveform: Right: SALES SUPERVISOR | | | Prox: 124.8 and triphasic DFA Prox: 69.5 and triphasic SFA Prox: | | | 107.7 and triphasic SFA Mid:90.9 and triphasic SFA Distal: 78 and | | | triphasic POP Mid: 65.6 and triphasic Tibioperoneal trunk: 45 and | | | biphasic JOSE ANGEL Prox: 171.1 and triphasic JOSE ANGEL Distal: 107 and | | | monophasic [employer] ARCHITECT Prox: 0 and absent [employer] ARCHITECT Distal: 28.3 and monophasic | | | OSMAR Prox: 31 and biphasic Peroneal mid: Appears occluded. OSMAR | | | Distal: 88 and monophasic Dorsalis pedis artery: 48 and monophasic | | | Atherosclerosis in arteries of right lower extremity vascular | | | calcifications. The proximal BI SOLUTIONS ARCHITECT appears occluded with distal | | | [...] systolic velocities | | (cm/s) / Doppler Waveform:Right:SALES SUPERVISOR Prox: 124.8 and triphasicDFA Prox: 69.5 and [...] | | lower extremity vascular calcifications.The proximal BI SOLUTIONS ARCHITECT appears occluded with distal | | reconstitution via collaterals.Mid peroneal artery appears occluded with distal | | reconstitution via collaterals.Probable hemodynamically significant stenosis in proximal | | JOSE ANGEL.IMPRESSION:1. The proximal BI SOLUTIONS ARCHITECT appears occluded with distal reconstitution via | [...] |JOSE ANGEL Distal: 107 and monophasic | |BI SOLUTIONS ARCHITECT Prox: 0 and absent | |BI SOLUTIONS ARCHITECT Distal: 28.3 and monophasic | |OSMAR Prox: 31 and biphasic | |Peroneal mid: Appears occluded. | |OSMAR Distal: 88 and monophasic | |Dorsalis pedis artery: 48 and monophasic | | | |Atherosclerosis in arteries of right lower extremity vascular calcifications. | | | |The proximal BI SOLUTIONS ARCHITECT appears occluded with distal reconstitution via collaterals. | |Mid peroneal artery appears occluded with distal reconstitution via collaterals. | |Probable hemodynamically significant stenosis in proximal JOSE ANGEL. | | | |IMPRESSION: | |1. The proximal BI SOLUTIONS ARCHITECT appears occluded with distal reconstitution via collaterals. [...] | + + + + + | [facility] | [address] | [place] [address] | | + + + + + [...] | LABORATORY | | | TCL, [address] [facility] [address], [place]) | | | | | [place] | | | | | [address] | | | + + + + + + + + + + | Performing | Address | City/State/Zipcode | Phone Number | | Organization | | | | + + + + + | [facility] | [address] | [place] [address] | [phone] | | LABORATORY | [address]vd[address] | | [...] + + + + + | Specific Hood, UA | 1.012 | 1.002 - 1.030 [...] | [facility] | | | performed at [facility], [address] | | LABORATORY | | | [address] [place], | | | | | [place] [address] | | | + + + + + + + | Specimen | + + | Urine - Urine, Clean | | Catch | + + + + + + + | Performing | Address | City/State/Zipcode | Phone Number | | Organization | | | | + + + + + | [facility] | [address] | [place] [address] | [phone] | | LABORATORY | Blvd. | | [...] | + + + + + | [facility] | [address] | [place] [address] | [phone] | | LABORATORY | Blvd. | | | + + + + + Septic Lactic Acid (02/22/2018 3:30 AM)Only the most recent of 2 results within the time shameka carr is included. + + + + + | Component | Value | Ref Range | Performed At | + + + + + | LACTIC ACID | 1.2Comment: Testing | 0.4 - 2.0 mmol/L | [facility] | | | performed at [facility];[address] | | | | | [address];[place] | | | | | [address] | | | + + + + + + + + + + | Performing | Address | City/State/Zipcode | Phone Number | | Organization | | | | + + + + + | [facility] | [address] | [place] [address] | | + + + + + catrina Fink (02/22/2018 3:30 AM) + + + + + | Component | Value | Ref Range | Performed At | + + + + + | BILI, DIRECT | 0.4 (H)Comment: Testing | 0.0 - 0.3 mg/dL | [facility] | | | performed at [facility], [address] | | LABORATORY | | | [address] [place], | | | | | [place] [address] | | | + + + + + + + + + + | Performing | Address | City/State/Zipcode | Phone Number | | Organization | | | | + + + + + | [facility] | [address] | [place] [address] | [phone] | | LABORATORY | [place]. | | [...] or surrogate | | + + + from Last 3 Months Insurance + +--------+ +------+-------+---------+ | Payer | Benefi | Subscriber | Type | Phone | Address | | | t Plan | ID | | | | | | / | | | | | | | Group | | | | | + +--------+ +------+-------+---------+ | [employer] | [employer] | [id number] | | | | | | WORK | | | | | + +--------+ +------+-------+---------+ + +--------+ +--------+ + + | Guarantor Name | Accoun | Relation to | Date | Phone | Billing Address | | | t Type | Patient | of | | | | | | | | | | + +--------+ +--------+ + + | HECTOR WALKER | Person | Self [birth year] | Home: | [address] [address] | | | al/Fam | | 1961 | [phone] [place] [address] | | | leroy | | | [phone] | | + +--------+ +--------+ + +
--- OUTSIDE RECORDS SUMMARY | ~2018-04-10 | XMS | Encounter Summary ---
Demographics + + + | Address | [address] | | | [place] [address] | + + + | Home Phone | | + + + | Preferred Language | Unknown | + + + | Marital Status | Single | + + + | Spiritism Affiliation | Unknown | + + + | Race | Unknown | + + + | Ethnic Group | Unknown | + + + Author + + + | Author | [facility] [employer] | + + + | Organization | [facility] [employer] | + + + | Address | Unknown | + + + | Phone | Unavailable | + + + Support + + +---------+ + | Name | Relationship | Address | Phone | + + +---------+ + | Megan Walker | ECON | Unknown | | + + +---------+ + Care Team Providers + +------+ + | Care Pottery Decoration Designer Name | Role | Phone | + +------+ + | Nicholas Claire MD | PCP | | + +------+ + Encounter Details +--------+ + + + + | Date | Type | Department | Care Team | Description | +--------+ + + + + | 02/25/ | Procedure | [facility] | | | | 2017 | [facility] | | | | | | Operating [address] | | | | | | [address] | | | | | | [place] [address] | | | | | | [phone] | | | +--------+ + + + [...] [place] | | | | | | [address] | | | | | | | | +--------+---------+ + + + as of this encounter Visit Diagnoses Not on filein this encounter"
--- OUTSIDE RECORDS SUMMARY | ~2018-04-10 | XMS | Encounter Summary ---
Demographics + + + | Address | [address] | | | [place] [address] | + + + | Home Phone | | + + + | Preferred Language | Unknown | + + + | Marital Status | Single | + + + | Confucianism Affiliation | Unknown | + + + | Race | Unknown | + + + | Ethnic Group | Unknown | + + + Author + + + | Author | [facility] [employer] | + + + | Organization | [facility] [facility] | + + + | Address | Unknown | + + + | Phone | Unavailable | + + + Support + + +---------+ + | Name | Relationship | Address | Phone | + + +---------+ + | Megan Walker | ECON | Unknown | | + + +---------+ + Care Team Providers + +------+ + | Care Motel Maid Name | Role | Phone | + +------+ + | Nicholas Claire MD | PCP | | + +------+ + Encounter Details +--------+ + + + + | Date | Type | Department | Care Team | Description | +--------+ + + + + | 02/22/ | Procedure | [facility] | | | | 2017 | [facility] | [address] | | | | | | Floor [facility] | | | | | | [address] [facility] | | | | | | [place] [address] | | | | | | [phone] | | | +--------+ + + + [...] [place] | | | | | | [address] | | | | | | | | +--------+---------+ + + + as of this encounter Visit Diagnoses Not on filein this encounter"
--- OUTSIDE RECORDS SUMMARY | ~2018-04-10 | XMS | Encounter Summary ---
Demographics + + + | Address | [address] | | | [place] [address] | + + + | Home Phone | | + + + | Preferred Language | Unknown | + + + | Marital Status | Single | + + + | Yazidi Affiliation | Unknown | + + + | Race | Unknown | + + + | Ethnic Group | Unknown | + + + Author + + + | Author | [facility] [employer] | + + + | Organization | [facility] | + + + | Address | Unknown | + + + | Phone | Unavailable | + + + Support + + +---------+ + | Name | Relationship | Address | Phone | + + +---------+ + | Megan Walker | ECON | Unknown | | + + +---------+ + Care Team Providers + +------+ + | Care Insulator Tester Name | Role | Phone | + [...] | Anticoagulati | Diagnoses | Lissy | [facility] | | | Services | on | Critical | MD Caroline | Anticoagulati | | | Required | | lower limb | [address] | on Clinic | | | | | ischemia | Blvd | [address] | | | | | | [place] | Blvd. | | | | | | [address] | [place] | | | | | | Phone: | [address] Phone: | | | | | | [phone] | [phone] | | | | | | Fax: | Fax: | | | | | | [phone] | [phone] | + + + + + + [...] | | | Internal | | | [facility] 7th | | | | Medicine | | | Floor [address] | | | | | | | [address] | | | | | | | [address] | | | | | | | [place] | | | | | | | [address] Phone: | | | | | | | [phone] | +--------+--------+ + + + + Encounter Details +--------+ + + + + | Date | Type | Department | Care Team | Description | +--------+ + + + + | 03/11/ | Hospital | [facility] | Yordy Troy | Occlusion of graft | | 2018 - | Encounter | Medical [place] 7th | Blane Chao MD [address] | of lower extremity, | | | | Floor [facility] | [address] | initial encounter | | 03/15/ | | [address] | [place] [address] | (HCC) (Primary Dx); | | 2018 | | [place] [address] | [phone] | Critical lower limb | | | | [phone] | | ischemia | | | | | Verna Dunn MD | | | | | | [address] | | | | | | [place] [address] | | | | | | Caroline Yuan MD | | | | | | [address] | | | | | | [place] [address] | | | | | | [phone] | | | | | | | | | | | | Pablo Weir, | | | | | | [address] | | | | | | [address] | | | | | | [place] [address] | | | | | | [phone] | | | | | | | | | | | | Valerie House, | | | | | | [address] | | | | | | [place] [address] | | | | | | [phone] | | | | | | | [...] may be different from t long original. [facility] Service: Hospitalist Discharge Summary Date of Admission: 03/11/2018 Date of Discharge: 03/15/2018 Discharge Provider: Caroilne Yuan MD Consults: vascular surgery Discharge Diagnoses: Principal Problem: Occlusion of right femoral-popliteal bypass graft, initial encounter ([facility]) Active Problems: PVD (peripheral vascular disease) ([facility]) Essential hypertension DM (diabetes mellitus) ([facility]) Weakness generalized Debility Other hyperlipidemia Resolved Problems: * No resolved hospital problems. * HOSPITAL COURSE: This is a 57-year-old male with a past medical history of hypertension, diabetes mellitus t ype 2, peripheral vascular disease status post right peripheral vascular disease who was rec ently admitted at [facility] in January of 2018 due to chronic right foot ulcer, right foot gangren e and evidence of necrosis of the distal toes. Vascular surgery services were involved and Dr. Rashid performed right popliteal to CONTINUOUS WELD PIPE MILL SUPERVISOR bypass and reversed OSF followed by right [...] angioplasty of the right foot popliteal to CONTINUOUS WELD P[employer] M[employer] SUPERVISOR bypass graft, angioplas ty of the right popliteal artery. He tolerated the procedure. He was eventually transition ed to Coumadin with a therapeutic INR on discharge and he was continued on Plavix. His pain was controlled. He was evaluated by physical therapy who recommended discharge back to [facility]. The patient will go back to [facility] [place] [facility]. The patient was seen by Wound Care for wounds on bilateral heels which were present on admi ssion. He is non-weightbearing to his right lower extremity post-surgery. The patient will need to follow up with Dr. Ferrera and Dr. Garcia, his consulting property manager, as an outpatient in two weeks for a repeat arterial duplex. For his type 2 diabetes mellitus, his hemoglobin A1c, he was noted to have hypoglycemic epi sodes, hence his glimepiride was discontinued and he was restarted on Janumet. [facility]. All other chronic medical prob lems [...] triphasic flow to the foot . Disposition: long-term Condition: Stable Code Status: Full Code Discharge Instructions Protime-INR Standing Status: Future Standing Exp. Date: 03/15/19 Ambulatory referral to Anticoagulation Monitoring Referral Priority: Routine Referral Type: Consultation Referral Reason: Specialty Services Required Requested Specialty: Anticoagulation Number of Visits Requested: 1 Follow up: Nicholas Claire MD 2010 11 [facility] [id number] Long Ferrera MD [address] [facility] [address] In 2 weeks Amilcar Garcia DPM [address] [facility] [address] [facility] [address] In 1 week Discharge took 35 [...] may be different from t long original. [facility] Service: Hospitalist Progress Note Hospital Day: LOS: 3 days Post-Op Day: * No surgery found * SUBJECTIVE Patient Summary: Per Dr. Dunn: Mr. Walker is a 57 yr old man with HTN, DM type 2, PVD, s/p right popliteal to CONTINUOUS WELD PIPE MILL SUPERVISOR bypass and reversed OSV and TMA right foot for right foot toe gangre ne on 02/23/2018 was referred to the ED by vascular surgery after he was found to have occlus ion of the RLE graft. He was started on heparin drip and seen by vascular surgery. Patient underwent thrombectomy and angioplasty of right popliteal to CONTINUOUS WELD PIPE MILL SUPERVISOR bypass graft, angioplasty o f right posterior [...] hours. No results for input(s): PHART, PO2ART, VHG9BBH, E7OENACL, BEART in the last 168 hours. Recent [...] of right femoral-popliteal bypass graft, initial encounter ([facility]) Active Problems: PVD (peripheral vascular disease) ([facility]) Essential hypertension DM (diabetes mellitus) ([facility]) Weakness generalized Debility Other hyperlipidemia ASSESSMENT & [...] of bleeding, monitor. Disposition: Inpatient, return to [facility] likely in AM. Code Status: Full Code Caroline Yuan MD 03/14/2018 Verna Dunn MD - 03/13/2018 10:01 AM PDTFormatting of this note may be different from th e original. [facility] Service: Hospitalist Progress Note Hospital Day: LOS: 2 days SUBJECTIVE Patient Summary: Mr. Walker is a 57 yr old man with HTN, DM type 2, PVD, s/p right popliteal to CONTINUOUS WELD PIPE MILL SUPERVISOR bypass and reversed OSV and TMA right foot for right foot toe gangrene on 02/23/2018 was referred to the ED by vascular surgery after he was found to have occlusion of the RLE graft. He was s tarted on heparin drip and seen by vascular surgery. Patient underwent thrombectomy and dolores oplasty of right popliteal to CONTINUOUS WELD PIPE MILL SUPERVISOR bypass graft, angioplasty of right posterior artery. [...] of right femoral-popliteal bypass graft, initial encounter ([facility]) Active Problems: PVD (peripheral vascular disease) ([facility]) Essential hypertension DM (diabetes mellitus) ([facility]) Weakness generalized Debility Other hyperlipidemia ASSESSMENT & [...] may be different from the original. [facility] Hospital Day: LOS: 1 day Post-Op Day: [...] of right femoral-popliteal bypass graft, initial encounter ([facility]) Active Problems: PVD (peripheral vascular disease) ([facility]) Essential hypertension DM (diabetes mellitus) ([facility]) Weakness generalized Debility Other hyperlipidemia ASSESSMENT & [...] 03/12/2018Long Ferrera MD - 03/12/2018 10:37 AM [facility] Service: Vascular Surgery Progress Note S/p mechanical [...] may be differen t from the original. [facility] Service: Hospitalist Progress Note Hospital Day: LOS: 1 day SUBJECTIVE Patient Summary: Mr. Walker is a 57 yr old man with HTN, DM type 2, PVD, s/p right popliteal to CONTINUOUS WELD PIPE MILL SUPERVISOR bypass and reversed OSV and TMA right foot for right foot toe gangrene on 02/23/2018 was referred to the ED by vascular surgery after he was found to have occlusion of the RLE graft. He was s tarted on heparin drip and seen by vascular surgery. Patient underwent thrombectomy and dolores oplasty of right popliteal to CONTINUOUS WELD PIPE MILL SUPERVISOR bypass graft, angioplasty of right posterior artery. [...] of right femoral-popliteal bypass graft, initial encounter ([facility]) Active Problems: PVD (peripheral vascular disease) ([facility]) Essential hypertension DM (diabetes mellitus) ([facility]) Weakness generalized Debility Other hyperlipidemia ASSESSMENT & [...] MD gerald rebolledo. AYDE Duque Abigail S [facility] - 03/11/2018 2:17 PM PDTFormatting of this [...] [place] | | | | | | [address] | | | | | | | [...] Testing | 65 - 99 mg/dL | [facility] | | | performed at [facility];[address] | | | | | [address];[place] | | | | | [address] | | | + + + + + + + + + + | Performing | Address | City/State/Zipcode | Phone Number | | Organization | | | | + + + + + | [facility] | [address] | [place] [address] | | + + + + + APTT (03/15/2018 9:10 AM) + + + + + | Component | Value | Ref Range | Performed At | + + + + + | APTT | 53 (H)Comment: Testing | 23 - 32 seconds | [facility] | | | performed at [facility];[address] | | | | | [address];[place] | | | | | [address] | | | + + + + + + + | Specimen | + + | Blood | + + + + + + + | Performing | Address | City/State/Zipcode | Phone Number | | Organization | | | | + + + + + | [facility] | [address] | [place] [address] | | + + + + + POCT glucose (03/15/2018 6:03 AM) + + + + + | Component | Value | Ref Range | Performed At | + + + + + | GLUCOSE,POC SCREEN | 157 (H)Comment: Testing | 65 - 99 mg/dL | [facility] | | | performed at [facility];[address] | | | | | [address];[place] | | | | | [address] | | | + + + + + + + + + + | Performing | Address | City/State/Zipcode | Phone Number | | Organization | | | | + + + + + | [facility] | [address] | [place] [address] | | + + + + + aPTT (03/15/2018 2:50 AM) + + + + + | Component | Value | Ref Range | Performed At | + + + + + | APTT | 68 (H)Comment: Testing | 23 - 32 seconds | [facility] | | | performed at [facility];[address] | | | | | [address];[place] | | | | | [address] | | | + + + + + + + + + + | Performing | Address | City/State/Zipcode | Phone Number | | Organization | | | | + + + + + | [facility] | [address] | [place] [address] | | + + + + + Protime-INR (03/15/2018 2:50 AM) + + + + + | Component | Value | Ref Range | Performed At | + + + + + | INR | 2.0Comment: REFERENCE | | [facility] | | | RANGE:0.9 - | [...] | | | | | performed at [facility];[address] | | | | | [address];[place], [place] | | | | | [address] | | | + + + + + + + | Specimen | + + | Blood | + + + + + + + | Performing | Address | City/State/Zipcode | Phone Number | | Organization | | | | + + + + + | [facility] | [address] [facility] | [place] [address] | | + + + + + POCT glucose (03/14/2018 8:48 PM) + + + + + | Component | Value | Ref Range | Performed At | + + + + + | GLUCOSE,POC SCREEN | 192 (H)Comment: Testing | 65 - 99 mg/dL | [facility] | | | performed at [facility];[address] | | | | | [address];[place] | | | | | [address] | | | + + + + + + + + + + | Performing | Address | City/State/Zipcode | Phone Number | | Organization | | | | + + + + + | [facility] | [address] | [place] [address] | | + + + + + APTT (03/14/2018 8:09 PM) + + + + + | Component | Value | Ref Range | Performed At | + + + + + | APTT | 57 (H)Comment: Testing | 23 - 32 seconds | [facility] | | | performed at [facility];[address] | | | | | [address];[place] | | | | | [address] | | | + + + + + + + | Specimen | + + | Blood | + + + + + + + | Performing | Address | City/State/Zipcode | Phone Number | | Organization | | | | + + + + + | [facility] | [address] | [place] [address] | | + + + + + POCT glucose (03/14/2018 4:37 PM) + + + + + | Component | Value | Ref Range | Performed At | + + + + + | GLUCOSE,POC SCREEN | 97Comment: Testing | 65 - 99 mg/dL | [facility] | | | performed at [facility];[address] | | | | | [address];[place] | | | | | [address] | | | + + + + + + + + + + | Performing | Address | City/State/Zipcode | Phone Number | | Organization | | | | + + + + + | [facility] | [address] | [place] [address] | | + + + + + APTT (03/14/2018 12:12 PM) + + + + + | Component | Value | Ref Range | Performed At | + + + + + | APTT | 68 (H)Comment: Testing | 23 - 32 seconds | [facility] | | | performed at [facility];[address] | | | | | [address];[place] | | | | | [address] | | | + + + + + + + | Specimen | + + | Blood | + + + + + + + | Performing | Address | City/State/Zipcode | Phone Number | | Organization | | | | + + + + + | [facility] | [address] | [place] [address] | | + + + + + POCT glucose (03/14/2018 11:38 AM) + + + + + | Component | Value | Ref Range | Performed At | + + + + + | GLUCOSE,POC SCREEN | 143 (H)Comment: Testing | 65 - 99 mg/dL | [facility] | | | performed at [facility];[address] | | | | | [address];[place] | | | | | [address] | | | + + + + + + + + + + | Performing | Address | City/State/Zipcode | Phone Number | | Organization | | | | + + + + + | [facility] | [address] | [place] [address] | | + + + + + POCT glucose (03/14/2018 5:16 AM) + + + + + | Component | Value | Ref Range | Performed At | + + + + + | GLUCOSE,POC SCREEN | 110 (H)Comment: Testing | 65 - 99 mg/dL | [facility] | | | performed at [facility];[address] | | | | | [address];[place], [place] | | | | | [address] | | | + + + + + + + + + + | Performing | Address | City/State/Zipcode | Phone Number | | Organization | | | | + + + + + | [facility] | [address] | [place] [address] | | + + + + + Protime-INR (03/14/2018 4:05 AM) + + + + + | Component | Value | Ref Range | Performed At | + + + + + | INR | 1.7Comment: REFERENCE | | [facility] | | | RANGE:0.9 - | [...] | | | | | performed at [facility];[address] | | | | | [address];[place] | | | | | [address] | | | + + + + + + + | Specimen | + + | Blood | + + + + + + + | Performing | Address | City/State/Zipcode | Phone Number | | Organization | | | | + + + + + | [facility] | [address] | [place] [address] | | + + + + + APTT (03/14/2018 4:05 AM) + + + + + | Component | Value | Ref Range | Performed At | + + + + + | APTT | 127 (HH)Comment: CALLED | 23 - 32 seconds | [facility] | | | NURSING UNITREAD BACK | | | | | RESULTS VERIFIEDPATRICIA | | | | | M IN 7RP AT 0502 BY | | | | | TDTesting performed at | | | | | [facility];[address] [facility] | | | | | [address];[place] [address] | | | + + + + + + + | Specimen | + + | Blood | + + + + + + + | Performing | Address | City/State/Zipcode | Phone Number | | Organization | | | | + + + + + | [facility] | [address] | [place] [address] | | + + + + + [...] | [facility] | | | performed at [facility], [address] | | LABORATORY | | | [address], | | | | | [place] [address] | | | + + + + + + + | Specimen | + + | Blood | + + + + + + + | Performing | Address | City/State/Zipcode | Phone Number | | Organization | | | | + + + + + | [facility] | [address] | [place] [address] | [phone] | | LABORATORY | [address] | | [...] | | | | | performed at [facility], [address] | | | | | [facility], | | | | | [place] [address] | | | + + + + + + + | Specimen | + + | Blood | + + + + + + + | Performing | Address | City/State/Zipcode | Phone Number | | Organization | | | | + + + + + | [facility] | [address] | [place] [address] | [phone] | | LABORATORY | [address] | | | + + + + + POCT glucose (03/14/2018 12:05 AM) + + + + + | Component | Value | Ref Range | Performed At | + + + + + | GLUCOSE,POC SCREEN | 119 (H)Comment: Testing | 65 - 99 mg/dL | [facility] | | | performed at [facility];[address] | | | | | [address];[place] | | | | | [address] | | | + + + + + + + + + + | Performing | Address | City/State/Zipcode | Phone Number | | Organization | | | | + + + + + | [facility] | [address] | [place] [address] | | + + + + + POCT glucose (03/13/2018 10:36 PM) + + + + + | Component | Value | Ref Range | Performed At | + + + + + | GLUCOSE,POC SCREEN | 75Comment: Testing | 65 - 99 mg/dL | [facility] | | | performed at [facility];[address] | | | | | [address];[place] | | | | | [address] | | | + + + + + + + + + + | Performing | Address | City/State/Zipcode | Phone Number | | Organization | | | | + + + + + | [facility] | [address] | [place] [facility] [address] | | + + + + + POCT glucose (03/13/2018 10:15 PM) + + + + + | Component | Value | Ref Range | Performed At | + + + + + | GLUCOSE,POC SCREEN | 61 (L)Comment: Testing | 65 - 99 mg/dL | [facility] | | | performed at [facility];[address] | | | | | [address];[place] | | | | | [address] | | | + + + + + + + + + + | Performing | Address | City/State/Zipcode | Phone Number | | Organization | | | | + + + + + | [facility] | [address] | [place] [address] | | + + + + + POCT glucose (03/13/2018 10:03 PM) + + + + + | Component | Value | Ref Range | Performed At | + + + + + | GLUCOSE,POC SCREEN | 51 (L)Comment: Testing | 65 - 99 mg/dL | [facility] | | | performed at [facility];[address] | | | | | [address];[place] | | | | | [address] | | | + + + + + + + + + + | Performing | Address | City/State/Zipcode | Phone Number | | Organization | | | | + + + + + | [facility] | [address] | [place] [address] | | + + + + + POCT glucose (03/13/2018 4:05 PM) + + + + + | Component | Value | Ref Range | Performed At | + + + + + | GLUCOSE,POC SCREEN | 81Comment: Testing | 65 - 99 mg/dL | [facility] | | | performed at [facility];[address] | | | | | [address];[place] | | | | | [address] | | | + + + + + + + + + + | Performing | Address | City/State/Zipcode | Phone Number | | Organization | | | | + + + + + | [facility] | [address] | [place] [address] | | + + + + + POCT glucose (03/13/2018 10:56 AM) + + + + + | Component | Value | Ref Range | Performed At | + + + + + | GLUCOSE,POC SCREEN | 73Comment: Testing | 65 - 99 mg/dL | [facility] | | | performed at [facility];[address] | | | | | [address];[place], [place] | | | | | [address] | | | + + + + + + + + + + | Performing | Address | City/State/Zipcode | Phone Number | | Organization | | | | + + + + + | [facility] | [address] | [place] [address] | | + + + + + POCT glucose (03/13/2018 5:58 AM) + + + + + | Component | Value | Ref Range | Performed At | + + + + + | GLUCOSE,POC SCREEN | 105 (H)Comment: Testing | 65 - 99 mg/dL | [facility] | | | performed at [facility];[address] | | | | | [address];[place] | | | | | [address] | | | + + + + + + + + + + | Performing | Address | City/State/Zipcode | Phone Number | | Organization | | | | + + + + + | [facility] | [address] | [place] [address] | | + + + + + Hemoglobin A1c (03/13/2018 3:30 AM) + + + + + | Component | Value | Ref Range | Performed At | + + + + + | HEMOGLOBIN A1C | 6.8 (H)Comment: The | 4.0 - 6.0 % | [facility] | | | [place] | | LABORATORY | | | [...] | | | | | performed at [facility], [address] | | | | | [facility], | | | | | [place] [address] | | | + + + + + + + | Specimen | + + | Blood | + + + + + + + | Performing | Address | City/State/Zipcode | Phone Number | | Organization | | | | + + + + + | [facility] | [address] | [place] [address] | [phone] | | LABORATORY | [address] | | | + + + + + Protime-INR (03/13/2018 3:30 AM) + + + + + | Component | Value | Ref Range | Performed At | + + + + + | INR | 1.1Comment: REFERENCE | | [facility] | | | RANGE:0.9 - | [...] | | | | | performed at [facility];[address] | | | | | [address];[place] | | | | | [address] | | | + + + + + + + + + + | Performing | Address | City/State/Zipcode | Phone Number | | Organization | | | | + + + + + | [facility] | [address] | [place] [address] | | + + + + + [...] | [facility] | | | performed at [facility], [address] | | LABORATORY | | | [address] [facility], | | | | | [place] [address] | | | + + + + + + + + + + | Performing | Address | City/State/Zipcode | Phone Number | | Organization | | | | + + + + + | [facility] | [address] | [place] [address] | [phone] | | LABORATORY | [address] | | [...] 0.8 | 0.70 - 1.30 mg/dL | [facility] | | | | | LABORATORY | + + + + + | BUN/CREAT | 20 | | [facility] | | | | | LABORATORY | + + + + + | CALCIUM | 8.6 | 8.5 - 10.5 mg/dL | [facility] | | | | | LABORATORY [...] | | | | | performed at [facility], [address] | | | | | [facility], | | | | | [place] [address] | | | + + + + + + + + + + | Performing | Address | City/State/Zipcode | Phone Number | | Organization | | | | + + + + + | [facility] | [address] [place] [address] | [place] [address] | [phone] | | LABORATORY | [place] | | | + + + + + APTT (03/13/2018 3:30 AM) + + + + + | Component | Value | Ref Range | Performed At | + + + + + | APTT | 58 (H)Comment: Testing | 23 - 32 seconds | [facility] LABORATORY | | | performed at [facility];[address] | | | | | [address];[place] | | | | | [address] | | | + + + + + + + | Specimen | + + | Blood | + + + + + + + | Performing | Address | City/State/Zipcode | Phone Number | | Organization | | | | + + + + + | [facility] | [address] | [place] [address] | | + + + + + POCT glucose (03/12/2018 9:43 PM) + + + + + | Component | Value | Ref Range | Performed At | + + + + + | GLUCOSE,POC SCREEN | 85Comment: Testing | 65 - 99 mg/dL | [facility] | | | performed at [facility];[address] | | | | | [address];[place], [place] | | | | | [address] | | | + + + + + + + + + + | Performing | Address | City/State/Zipcode | Phone Number | | Organization | | | | + + + + + | [facility] | [address] | [place] [address] | | + + + + + APTT (03/12/2018 9:24 PM) + + + + + | Component | Value | Ref Range | Performed At | + + + + + | APTT | 65 (H)Comment: Testing | 23 - 32 seconds | [facility] | | | performed at [facility];[address] | | | | | [facility] | | | | | [address] | | | + + + + + + + | Specimen | + + | Blood | + + + + + + + | Performing | Address | City/State/Zipcode | Phone Number | | Organization | | | | + + + + + | [facility] | [address] | [place] [address] | | + + + + + POCT glucose (03/12/2018 4:31 PM) + + + + + | Component | Value | Ref Range | Performed At | + + + + + | GLUCOSE,POC SCREEN | 79Comment: Testing | 65 - 99 mg/dL | [facility] | | | performed at [facility];[address] | | | | | [address];[place] | | | | | [address] | | | + + + + + + + + + + | Performing | Address | City/State/Zipcode | Phone Number | | Organization | | | | + + + + + | [facility] | [address] | [place] [address] | | + + + + + APTT (03/12/2018 1:30 PM) + + + + + | Component | Value | Ref Range | Performed At | + + + + + | APTT | 87 (HH)Comment: CALLED | 23 - 32 seconds | [facility] | | | NURSING UNITKELSIE/ 7 RP | | | | | @ 1408 BY BURTREAD BACK | | | | | RESULTS VERIFIEDTesting | | | | | performed at [facility];[address] | | | | | [address];[place] | | | | | [address] | | | + + + + + + + | Specimen | + + | Blood | + + + + + + + | Performing | Address | City/State/Zipcode | Phone Number | | Organization | | | | + + + + + | [facility] | [address] | [place] [address] | | + + + + + POCT glucose (03/12/2018 12:41 PM) + + + + + | Component | Value | Ref Range | Performed At | + + + + + | GLUCOSE,POC SCREEN | 174 (H)Comment: Testing | 65 - 99 mg/dL | [facility] | | | performed at [facility];[address] | | | | | [address] [facility];[place], [place] | | | | | [address] | | | + + + + + + + + + + | Performing | Address | City/State/Zipcode | Phone Number | | Organization | | | | + + + + + | [facility] | [address] | [place] [address] | | + + + + + Hemoglobin A1c (03/12/2018 4:52 AM) + + + + + | Component | Value | Ref Range | Performed At | + + + + + | HEMOGLOBIN A1C | 7.0 (H)Comment: The | 4.0 - 6.0 % | [facility] | | | [facility] | | LABORATORY | | | [...] | | | | | performed at [facility], [address] | | | | | [facility], | | | | | [place] [address] | | | + + + + + + + | Specimen | + + | Blood | + + + + + + + | Performing | Address | City/State/Zipcode | Phone Number | | Organization | | | | + + + + + | [facility] | [address] | [place] [address] | [phone] | | LABORATORY | [address]vd[address] | | | + + + + + APTT (03/12/2018 4:52 AM) + + + + + | Component | Value | Ref Range | Performed At | + + + + + | APTT | 34 (H)Comment: Testing | 23 - 32 seconds | [facility] | | | performed at [facility];[address] | | | | | [address];[place], [place] | | | | | [address] | | | + + + + + + + | Specimen | + + | Blood | + + + + + + + | Performing | Address | City/State/Zipcode | Phone Number | | Organization | | | | + + + + + | [facility] | [address] | [place] [address] | | + + + + + Protime-INR (03/12/2018 4:52 AM) + + + + + | Component | Value | Ref Range | Performed At | + + + + + | INR | 1.1Comment: REFERENCE | | [facility] | | | RANGE:0.9 - | [...] | | | | | performed at [facility];[address] | | | | | [address] [facility];[place] | | | | | [address] | | | + + + + + + + | Specimen | + + | Blood | + + + + + + + | Performing | Address | City/State/Zipcode | Phone Number | | Organization | | | | + + + + + | [facility] | [address] | [place] [address] | | + + + + + Phosphorus (03/12/2018 4:52 AM) + + + + + | Component | Value | Ref Range | Performed At | + + + + + | PHOSPHORUS | 3.7Comment: Testing | 2.3 - 4.8 mg/dL | [facility] | | | performed at [facility], [address] | | LABORATORY | | | [address], | | | | | [place] [address] | | | + + + + + + + | Specimen | + + | Blood | + + + + + + + | Performing | Address | City/State/Zipcode | Phone Number | | Organization | | | | + + + + + | [facility] | [address] | [place] [address] | [phone] | | LABORATORY | [address]vd. | | | + + + + + Magnesium (03/12/2018 4:52 AM) + + + + + | Component | Value | Ref Range | Performed At | + + + + + | MAGNESIUM | 1.8Comment: Testing | 1.7 - 2.4 mg/dL | [facility] | | | performed at [facility], [address] | | LABORATORY | | | [facility], | | | | | [place] [address] | | | + + + + + + + | Specimen | + + | Blood | + + + + + + + | Performing | Address | City/State/Zipcode | Phone Number | | Organization | | | | + + + + + | [facility] | [address] | [place] [address] | [phone] | | LABORATORY | [address]vd. | | [...] + | BUN/CREAT | 23 | | [facility] | | | | | LABORATORY | + + + + + | CALCIUM | 8.6 | 8.5 - 10.5 mg/dL | [facility] | | | | | LABORATORY [...] | | | | | performed at [facility], [address] | | | | [facility] [address], | | | | | [place] [address] | | | + + + + + + + | Specimen | + + | Blood | + + + + + + + | Performing | Address | City/State/Zipcode | Phone Number | | Organization | | | | + + + + + | [facility] | [address] | [place] [address] | [phone] | | LABORATORY | [address] | | [...] | [facility] | | | performed at [facility], [address] | | LABORATORY | | | [address], | | | | | [place] [address] | | | + + + + + + + | Specimen | + + | Blood | + + + + + + + | Performing | Address | City/State/Zipcode | Phone Number | | Organization | | | | + + + + + | [facility] | [address] | [place] [address] | [phone] | | LABORATORY | Blvd. | | | + + + + + aPTT - Q6 starting in 6 hours x 2 (03/11/2018 11:55 PM) + + + + + | Component | Value | Ref Range | Performed At | + + + + + | APTT | 32Comment: Testing | 23 - 32 seconds | [facility] | | | performed at [facility];[address] | | | | | [address];[place] | | | | | [address] | | | + + + + + + + | Specimen | + + | Blood | + + + + + + + | Performing | Address | City/State/Zipcode | Phone Number | | Organization | | | | + + + + + | [facility] | [address] | [place] [address] | | + + + + + aPTT - Q6 starting in 6 hours x 2 (03/11/2018 6:37 PM) + + + + + | Component | Value | Ref Range | Performed At | + + + + + | APTT | >240 ()Comment: CALLED | 23 - 32 seconds | [facility] | | | NURSING UNITREAD BACK | | | | | RESULTS VERIFIEDDAVID C | | | | | RN LEAD 7RP @ 1938 | | | | | DLSTesting performed at | | | | | [facility];[address] | | | [address];[place] [address] | | | + + + + + + + | Specimen | + + | Blood | + + + + + + + | Performing | Address | City/State/Zipcode | Phone Number | | Organization | | | | + + + + + | [facility] | [address] | [place] [address] | | + + + + + [...] | + + + + + | [facility] | [address] | [place] [address] | | + + + + + [...] | tibial artery bypass graft using 4 Ivorian Solent Dista AngioJet | | | catheter 5. Angioplasty of right posterior tibial artery using 2.5 x | | | 120 mm angioplasty balloon 6. Angioplasty of right leg bypass graft | | | and popliteal artery using 4 x 150 mm angioplasty balloon SURGEON: | | | Long Ferrera MD MEAT STOCK CLERK: None ANESTHESIA: Moderate sedation and | | [...] and | | | brought to the Pigment Furnace Tender. The patient was placed supine on the [...] wire and up sized to a 4 Ivorian sheath. A | | | Omni flush [...] inserted over the catheter and the 4 Ivorian sheath was removed. A 7 | | | Ivorian destination sheath was then inserted over the [...] artery bypass was then performed using 4 Ivorian | | | Solent Dista AngioJet catheter. [...] artery bypass graft using | | 4 Ivorian Solent Dista AngioJet catheter5. Angioplasty of right [...] identified and brought | | to the Pigment Furnace Tender. The patient was placed supine on the [...] | and up sized to a 4 Ivorian sheath. A Omni flush catheter was then [...] inserted over the catheter and the 4 Ivorian sheath was removed. A 7 Ivorian | | destination sheath was then inserted [...] was | | then performed using 4 Ivorian Solent Dista AngioJet catheter. After mechanical | [...] | + + + + + | [facility] | [address] | [place] [address] | | + + + + + IR angiogram extremity right (03/11/2018 5:58 PM) + + + | Impressions | Performed At | + + + | 1. Right below-knee popliteal artery to distal posterior tibial | [facility] | | artery bypass was occluded. 2. [...] | tibial artery bypass graft using 4 Ivorian Solent Dista AngioJet | | | catheter 5. Angioplasty of right posterior tibial artery using 2.5 x | | | 120 mm angioplasty balloon 6. Angioplasty of right leg bypass graft | | | and popliteal artery using 4 x 150 mm angioplasty balloon SURGEON: | | | Long Ferrera MD MEAT STOCK CLERK: None ANESTHESIA: Moderate sedation and | | [...] and | | | brought to the Pigment Furnace Tender. The patient was placed supine on the [...] wire and up sized to a 4 Ivorian sheath. A | | | Omni flush [...] inserted over the catheter and the 4 Ivorian sheath was removed. A 7 | | | Ivorian destination sheath was then inserted over the [...] artery bypass was then performed using 4 Ivorian | | | Solent Dista AngioJet catheter. [...] artery bypass graft using | | 4 Ivorian Solent Dista AngioJet catheter5. Angioplasty of right [...] identified and brought | | to the Pigment Furnace Tender. The patient was placed supine on the [...] | and up sized to a 4 Ivorian sheath. A Omni flush catheter was then [...] inserted over the catheter and the 4 Ivorian sheath was removed. A 7 Ivorian | | destination sheath was then inserted [...] was | | then performed using 4 Ivorian Solent Dista AngioJet catheter. After mechanical | [...] | + + + + + | [facility] | [address] | [place] [address] | | + + + + + APTT (03/11/2018 3:38 PM) + + + + + | Component | Value | Ref Range | Performed At | + + + + + | APTT | >240 ()Comment: CALLED | 23 - 32 seconds | [facility] | | | NURSING UNITREAD BACK | | | | | RESULTS VERIFIEDJADORA W | | | | | RN 7RP @ 9914 DLSTesting | | | | | performed at [facility] | | | | | [address];[place], [place] | | | | | [address] | | | + + + + + + + | Specimen | + + | Blood | + + + + + + + | Performing | Address | City/State/Zipcode | Phone Number | | Organization | | | | + + + + + | [facility] | [address] | [place] [facility] [place] [address] | | + + + + + aPTT (03/11/2018 2:19 PM) + + + + + | Component | Value | Ref Range | Performed At | + + + + + | APTT | >240 ()Comment: CALLED | 23 - 32 seconds | [facility] | | | NURSING UNITREAD BACK | | | | | RESULTS VERIFIEDJEFERSON Guerrier | | | | | RN 7RP @ 8535 DLSTesting | | | | | performed at [facility];[address] | | | | | [address];[place] | | | | | [address] | | | + + + + + + + | Specimen | + + | Blood | + + + + + + + | Performing | Address | City/State/Zipcode | Phone Number | | Organization | | | | + + + + + | [facility] | [address] | [place] [address] | | + + + + + Cardiac Panel (03/11/2018 12:15 PM) + + + + + | Component | Value | Ref Range | Performed At | + + + + + | WBC | 7.36 | 3.80 - 11.00 K/uL | [facility] | + + + + + | RBC | 3.92 (L) | 4.20 - 5.70 M/uL | [facility] | + + + + + | HGB | 11.8 (L) | 13.2 - 17.0 g/dL | [facility] | + + + + + | HCT | 33.9 (L) | 39.0 - 50.0 % | [facility] | + + + + + | MCV | 86.6 | 80.0 - 100.0 fl | [facility] | + + + + + | MCH | 30.0 | 27.0 - 34.0 pg | [facility] | + + + + + | MCHC | 34.7 | 32.0 - 35.5 g/dL | [facility] | + + + + + | RDW SD | 41.1 | 37 - 53 fl | [facility] | + + + + + | PLT | 323 | 150 - 400 K/uL | [facility] | + + + + + [...] 0.5 (L) | 1.0 - 2.4 | [facility] | + + + + + | TBIL | 0.6 | 0.1 - 1.5 mg/dL | [facility] | + + + + + | ALK PHOS | 95 | 35 - 115 U/L | [facility] | + + + + + | AST | 23 | 10 - 45 U/L | [facility] | + + + + + | ALT | 39 | 10 - 65 U/L | [facility] | + + + + + | EGFR | >60Comment: GFR <60: | >60 mL/min/1.73m2 | [facility] | | | CHRONIC KIDNEY DISEASE, [...] the | | | | | [facility] traceable | | | | | equation. | | | + + + + + | CPK | 39 (L) | 55 - 400 U/L | [facility] | + + + + + | INR | 1.1Comment: REFERENCE | | [facility] | | | RANGE:0.9 - | [...] 31 | 23 - 32 seconds | [facility] | + + + + + | MMB | 1.3 | 0.5 - 3.6 ng/mL | [facility] | + + + + + | CK-MB Index | 3.3Comment: CK INDEX | | [facility] | | | INTERPRETATION: | | [...] | | | | | performed at [facility];[address] | | | | | [address];[place] | | | | | [address] | | | + + + + + + + + + + | Performing | Address | City/State/Zipcode | Phone Number | | Organization | | | | + + + + + | [facility] | [address] | [place] [address] | | + + + + + [...] | + + | DM (diabetes mellitus) ([facility]) | + + | Type II or unspecified type diabetes mellitus without mention of complication, not | | stated as uncontrolled | + + | PVD (peripheral vascular disease) ([facility]) | + + | Peripheral vascular disease, [...]
--- OUTSIDE RECORDS SUMMARY | ~2018-04-10 | XMS | Encounter Summary ---
Demographics + + + | Address | [address] | | | [place] [address] | + + + | Home Phone | | + + + | Preferred Language | Unknown | + + + | Marital Status | Single | + + + | Orthodoxy Affiliation | Unknown | + + + | Race | Unknown | + + + | Ethnic Group | Unknown | + + + Author + + + | Author | [facility] [employer] [facility] | + + + | Organization | [facility] [employer] [facility] | + + + | Address | Unknown | + + + | Phone | Unavailable | + + + Support + + +---------+ + | Name | Relationship | Address | Phone | + + +---------+ + | Megan Walker | ECON | Unknown | | + + +---------+ + Care Team Providers + +------+ + | Care Press Operator Heavy Duty Name | Role | Phone | + +------+ + | Nicholas Claire MD | PCP | | + +------+ + Encounter Details +--------+ + + + + | Date | Type | Department | Care Team | Description | +--------+ + + + + | 03/31/ | Procedure | [facility] | | | | 2018 | [facility] | | | | | | Operating Room [address] | | | | | | [address] | | | | | | [place] [address] | | | | | | [phone] | | | +--------+ + + + [...]
--- OUTSIDE RECORDS SUMMARY | ~2018-04-10 | XMS | Encounter Summary ---
Demographics + + + | Address | [address] | | | [place] [address] | + + + | Home Phone | | + + + | Preferred Language | Unknown | + + + | Marital Status | Single | + + + | Evangelical Affiliation | Unknown | + + + | Race | Unknown | + + + | Ethnic Group | Unknown | + + + Author + + + | Author | [facility] | + + + | Organization | [facility] | + + + | Address | Unknown | + + + | Phone | Unavailable | + + + Support + + +---------+ + | Name | Relationship | Address | Phone | + + +---------+ + | Megan Walker | ECON | Unknown | | + + +---------+ + Care Team Providers + +------+ + | Care Edger Operator Name | Role | Phone | + +------+ + | Nicholas Claire MD | PCP | | + +------+ + Encounter Details +--------+ + + + + | Date | Type | Department | Care Team | Description | +--------+ + + + + | 03/11/ | Orders Only | [facility] | Ronnell Burroughs, | | | 2018 | | [facility] Roxie Cantrell RN | | | | | Lab [address] [place] [address] | | | | | | [place] [address] | | | | | | [phone] | | | +--------+ + + + [...] [place] | | | | | | [address] | | | | | | | | +--------+---------+ + + + as of this encounter Visit Diagnoses Not on filein this encounter
--- OUTSIDE RECORDS SUMMARY | ~2018-04-10 | XMS | Encounter Summary ---
Demographics + + + | Address | [address] | | | [place] [address] | + + + | Home Phone | | + + + | Preferred Language | Unknown | + + + | Marital Status | Single | + + + | Mormon Affiliation | Unknown | + + + | Race | Unknown | + + + | Ethnic Group | Unknown | + + + Author + + + | Author | [facility] | + + + | Organization | [facility] | + + + | Address | Unknown | + + + | Phone | Unavailable | + + + Support + + +---------+ + | Name | Relationship | Address | Phone | + + +---------+ + | Megan Walker | ECON | Unknown | | + + +---------+ + Care Team Providers + +------+ + | Care Radial Drill Press Operator Name | Role | Phone | [...] | | | | | | | ([facility]) | | | | | | | Gang[place] of | | | | | | | right foot | | | | | | | ([facility]) | | | +--------+--------+ + + + + Encounter Details +--------+ + + + + | Date | Type | Department | Care Team | Description | +--------+ + + + + | 02/23/ | Anesthesia | [facility] | Maribell Ferrera MD | | | 2018 | [facility] | [address] | | | | | Operating Room [address] | [place] [address] | | | | | [facility] | [phone] | | | | | [place] [address] | | | | | | [phone] | | | +--------+ + + + [...] | | | | | | [place] | | | | | | [id number] | | | | | | | [...]
--- OUTSIDE RECORDS SUMMARY | ~2018-04-10 | XMS | Encounter Summary ---
Demographics + + + | Address | [address] | | | [place] [address] | + + + | Home Phone | | + + + | Preferred Language | Unknown | + + + | Marital Status | Single | + + + | Shinto Affiliation | Unknown | + + + | Race | Unknown | + + + | Ethnic Group | Unknown | + + + Author + + + | Author | [facility] [employer] [facility] | + + + | Organization | [facility] | + + + | Address | Unknown | + + + | Phone | Unavailable | + + + Support + + +---------+ + | Name | Relationship | Address | Phone | + + +---------+ + | Megan Walker | ECON | Unknown | | + + +---------+ + Care Team Providers + +------+ + | Care Branch Mechanic Name | Role | Phone | [...] | | | | vascular | | [place], [place] | | | | | disease) | | [address] Phone: | | | | | ([facility]) | | [phone] | | | | | Amputation | | Fax: | | | | | stump | | [phone] | | | | | infection | | | | | | | ([facility]) | | | | | | [...] + + | 03/31/ | Anesthesia | [facility] | Pete Allen, | | | 2018 | [facility] | PRODUCTION LEAD [address] | | | | | Operating Room [address] | [place] [address] | | | | | [address] | [phone] | | | | | [place] [address] | | | | | | [phone] | | | +--------+ + + + [...] | Urethr | 03/31/18; 1230; Komal Ngo FACILITY OPERATIONS MANAGER; | 03/31/18 1230 by | 04/01/18 1412 [...] [place] | | | | | | [address] | | | | | | | [...] | | | | | dose on [facility] 03/31/18 at 0000, | | | [...] | 12:26 | | | | | [facility] 03/31/18 at 1226, Anesthesia | | [...] 12:17 | | | | | Starting [facility] 03/31/18 at 1217, | | PDT [...]
--- OUTSIDE RECORDS SUMMARY | ~2018-04-10 | XMS | Clinical Summary ---
Demographics + + + | Address | [address] | | | [place] [address] | + + + | Home Phone | | + + + | Preferred Language | Unknown | + + + | Marital Status | Single | + + + | Voodoo Affiliation | Unknown | + + + | Race | Unknown | + + + | Ethnic Group | Unknown | + + + Author + + + | Author | [facility] | + + + | Organization | [facility] | + + + | Address | Unknown | + + + | Phone | Unavailable | + + + Support + + +---------+ + | Name | Relationship | Address | Phone | + + +---------+ + | Megan Walker | ECON | Unknown | | + + +---------+ + Care Team Providers + +------+ + | Care Propulsion Machinery Service Engineer Name | Role | Phone | + [...] | PVD (peripheral vascular disease) ([facility]) | 03/30/2018 | + + + | [...] | PVD (peripheral vascular disease) ([facility]) | 02/21/2018 | + + + | Essential hypertension | 02/21/2018 | + + + | DM (diabetes mellitus) ([facility]) | 02/21/2018 | + + + Resolved Problems + + + + | Problem | Noted | Resolved | | | Date | Date | + + + + | Amputation stump infection ([facility]) | 03/30/20 | | | | 18 [...] | | 2018 | Event | | CUFF FOLDER | | +--------+ + + + + [...] + | 03/30/ | Telephone | | Yseenia Witt, | | | 2017 | | [...] extremity, | | | | | MD Verna | initial encounter | | 03/15/ | [...] | | popliteal | | | to FOLDER AND NOTCHER | | | bypass and | | [...] | | popliteal | | | to FOLDER AND NOTCHER | | | bypass | | | [...] | | back to | | | [place] | | | .The | | | [...] | | | 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, | | | as an | | [...] | | | [place], | | | [id number] | | | [address] [place] | | | [place] | | | [address] | | | [phone] | | | Long Y Iban, | | | [id number] | | | [place] | | | DriveRichla | | | nd [place] | | | [phone] | | | [phone] | | | weeksJoshua | | | Jsoe, | | | [id number] | | | [address] | | | [address] | | | [address] | | | [place] | | | [address] | | | [phone] | | | [...] | | 50-500 MG | | | [id number] | | | : 0Generic | | [...] | | 2018 | Event | | CUFF FOLDER | | +--------+ +---+ + + | [...] Encounter | | Jojo Kwong, | foot ([facility]) (Primary | | | | | Yovani Resendiz, | Dx); Cellulitis of | | 03/01/ | | | MD Peña, | right lower | | 2018 | | | MD Peter | extremity; Sepsis, | | | | | | due to unspecified | | | | | | organism ([facility]); Foot | | | | | | [...] HamptonMRN: | | | | | | [id number]/ | | | | | | y.o.Admit [...] | | Physician: | | | Johan Hernandezye | | | Poi, | | | [...] | | with 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, | | | when they | | [...] | | Popliteal | | | to FOLDER AND NOTCHER | | | bypass and | | [...] | | | proximal | | | FOLDER AND NOTCHER appears | | | occluded | | [...] | up:Johan Jye | | | Poi, [id number] | | | [address] | | | [address] | | | [place] | | | [place] | | | [phone] | | | [phone] | | | ule an | | | appointment | | | as soon as | | | possible | | | for a visit | | | in 2 | | | weeksFor | | | wound | | | re-checkJoh | | | n [place], | | | [id number] | | | [address] | | | [place] | | | [address] | | | [phone] | | | [...] | | 50-500 MG | | | [id number] | | | : 0Generic | | [...] | [place], [place] - | | | [address] | | | ISLAND | | | [address] | | | [address] | | | [address] | | | [address], | | | [facility] | | | [place] [address] | | | Phone: | | | [phone] | | | 0 | | | [...] [place] | | | | | | [address] | | | | | | | [...] | | Pete | | | , CUFF FOLDER | | | - | | | [...] | + +--------+ + + + | [facility] CARD PANEL W/O | STAT | 02/21/2018 [...] Testing | 65 - 99 mg/dL | [facility] | | | performed at [facility];[address] | | | | | [address];[place] | | | | | [address] | | | + + + + + + + + + + | Performing | Address | City/State/Zipcode | Phone Number | | Organization | | | | + + + + + | [facility] | [address] | [place] [address] | | + + + + + [...] | [facility] | | | performed at [facility], [facility] [address] | | LABORATORY | | | [address], | | | | | [place] [address] | | | + + + + + + + | Specimen | + + | Blood | + + + + + + + | Performing | Address | City/State/Zipcode | Phone Number | | Organization | | | | + + + + + | [facility] | [address] | [place] [address] | [phone] | | LABORATORY | [address]vd[address] | | | + + + + + Basic metabolic panel (04/02/2018 4:33 AM)Only the most recent of 11 results within the ar period is included. + + + + [...] (H) | 65 - 99 mg/dL | [facility] | | | | | LABORATORY | + + + + + | BUN | 18 | 8 - 25 mg/dL | [facility] | | | | | LABORATORY | + + + + + | CREATININE | 0.8 | 0.70 - 1.30 mg/dL | [facility] | | | | | LABORATORY | + + + + + | BUN/CREAT | 23 | | [facility] | | | | | LABORATORY | + + + + + | CALCIUM | 8.1 (L) | 8.5 - 10.5 mg/dL | [facility] | | | | | LABORATORY | + + + + + | EGFR | >60Comment: GFR <60: | >60 mL/min/1.73m2 | [facility] | | | CHRONIC KIDNEY [...] | | | | | performed at [facility], [address] | | | | [facility], | | | | | [place], [place] [address] | | | + + + + + + + | Specimen | + + | Blood | + + + + + + + | Performing | Address | City/State/Zipcode | Phone Number | | Organization | | | | + + + + + | [facility] | [address] | [place] [address] | [phone] | | LABORATORY | Blvd. | | | + + + + + Protime-INR (04/01/2018 9:23 AM)Only the most recent of 8 results within the time period i s included. + + + + + | Component | Value | Ref Range | Performed At | + + + + + | INR | 1.1Comment: REFERENCE | | [facility] | | | RANGE:0.9 [...] | | | | | performed at [facility];[address] | | | | | [address];[place], [place] | | | | | [address] | | | + + + + + + + | Specimen | + + | Blood | + + + + + + + | Performing | Address | City/State/Zipcode | Phone Number | | Organization | | | | + + + + + | [facility] | [address] | [place] [address] | | + + + + + Pathology histology - tissue (04/01/2018)Only the most recent of 2 results within the time period is included. + + | Specimen | + + | Tissue | + + + + + | Narrative | Performed At | + + + | SPECIMEN(S): A Rt. BELOW KNEE AMPUTATION SPECIMEN SOURCE: A. | [facility] | | Rt. BELOW KNEE AMPUTATION [...] Received fresh designated | | | "right nedxi-qsx-noby amputation" consists of a right fsnpl-uwp-nrfz | | | amputated leg that is 29.5 cm from vesn-yz-khqnoshsk margin and has a | | | [...] | surgical resection margin is grossly viable. Community Fundraiser sections | | | are submitted in [...] preparation was performed | | | by basno, [facility], [address] | | | [place] [address] (Machine Adjuster Leader: Ha Couch M.D.; | | | [facility]#: [id number]). Diagnostician: Breann Melara MD Pathologist | | | Electronically Signed 04/04/2018 | | + + + + +---------+ + + | Performing | Address | City/State/Zipcode | Phone Number | | Organization | | | | + +---------+ + + | [facility] | | | | + +---------+ + + Type and screen (03/31/2018 6:13 AM)Only the most recent of 2 results within the time yuliya od is included. + + + + + | Component | Value | Ref Range | Performed At | + + + + + | ABO/RH(D) | A POSITIVE | | [facility] | + + + + + | ANTIBODY SCREEN | NEGATIVE | | [facility] | + + + + + | ARM BAND NUMBER | [id number] | | [facility] | | | performed at [facility];[address] | | | | | [address];[place], [place] | | | | | [address] | | | + + + + + + + | Specimen | + + | Blood | + + + + + + + | Performing | Address | City/State/Zipcode | Phone Number | | Organization | | | | + + + + + | [facility] | [address] | [place] [address] | | + + + + + Magnesium (03/31/2018 6:13 AM)Only the most recent of 3 results within the time period is included. + + + + + | Component | Value | Ref Range | Performed At | + + + + + | MAGNESIUM | 2.1Comment: Testing | 1.7 - 2.4 mg/dL | [facility] | | | performed at [facility], [address] | | LABORATORY | | | [address], | | | | | [place] [address] | | | + + + + + + + | Specimen | + + | Blood | + + + + + + + | Performing | Address | City/State/Zipcode | Phone Number | | Organization | | | | + + + + + | [facility] | [address] | [place] [address] | [phone] | | LABORATORY | [address] | | [...] the | | | | | MDRD IDRI traceable | | | | | equation.Testing | | | | | performed at [facility], [address] | | | | | [facility], | | | | | [place] [address] | | | + + + + + + + | Specimen | + + | Blood | + + + + + + + | Performing | Address | City/State/Zipcode | Phone Number | | Organization | | | | + + + + + | [facility] | [address] | [place] [address] | [phone] | | LABORATORY | [address] | | [...] + + + + | Calculated P Patterson | 9 | degrees | [facility] | + + + + + | Calculated R Patterson | 53 | degrees | [facility] | + + + + + | Calculated T Patterson | 53 | degrees | [facility] | + + + + + | Diagnosis | Normal sinus | | [facility] | | | rhythmNormal [...] -COMPUTER (500), | | | | | international editorial producer Nahid John | | | | | Jesse (123) on 03/31/2018 | | | | | 3:26:17 AM | | | + + + + + + + + + + | Performing | Address | City/State/Zipcode | Phone Number | | Organization | | | | + + + + + | [facility] | [address] | [place] [address] | | + + + + + [...] | + + + + + | [facility] | [address] | [place] [address] | [phone] | | LABORATORY | [address]. | | | + + + + + | [facility] | [address] | [place] [address] | | + + + + + MRSA by PCR (03/30/2018 5:39 PM)Only the most recent of 2 results within the time period i s included. + + + + + | Component | Value | Ref Range | Performed At | + + + + + | SOURCE | NARES(NOSE) | | [facility] | + + + + + | MRSA PCR | NEGATIVEComment: Testing | NEGATIVE | [facility] | | | performed at [facility];[address] | | | | | [address];[place], [place] | | | | | [address] | | | + + + + + + + | Specimen | + + | Nasopharyngeal - | | Nares(Nose) | + + + + + + + | Performing | Address | City/State/Zipcode | Phone Number | | Organization | | | | + + + + + | [facility] | [address] | [place] [address] | | + + + + + Troponin I (03/30/2018 5:12 PM) + + + + + | Component | Value | Ref Range | Performed At | + + + + + | TROPONIN I | <0.020Comment: 0.00 to | 0.00 - 0.10 ng/mL | [facility] | | | 0.10 [...] | | | | CRITERIA FOR ACUTE FL | | | | | Testing performed at | | | | | [facility];[address] | | | [address];[place] [address] | | | + + + + + + + + + + | Performing | Address | City/State/[facility] | Phone Number | | Organization | | | | + + + + + | [facility] | [address] | [place] [address] | | + + + + + aPTT (03/30/2018 5:12 PM)Only the most recent of 17 results within the time period is incl uded. + + + + + | Component | Value | Ref Range | Performed At | + + + + + | APTT | 55 (H)Comment: Testing | 23 - 32 seconds | [facility] | | | performed at [facility];[address] | | | | | [address];[place] | | | | | [address] | | | + + + + + + + | Specimen | + + | Blood | + + + + + + + | Performing | Address | City/State/Zipcode | Phone Number | | Organization | | | | + + + + + | [facility] | [address] | [place] [address] | | + + + + + Sedimentation Rate (ESR) (03/30/2018 5:12 PM) + + + + + | Component | Value | Ref Range | Performed At | + + + + + | ESR | 67 (H)Comment: Testing | 0 - 20 mm/Hr | [facility] | | | performed at [facility];[address] | | | | | [address];[place] | | | | | [address] | | | + + + + + + + | Specimen | + + | Blood | + + + + + + + | Performing | Address | City/State/Zipcode | Phone Number | | Organization | | | | + + + + + | [facility] | [address] | [place] [address] | | + + + + + C-reactive protein (03/30/2018 5:12 PM) + + + + + | Component | Value | Ref Range | Performed At | + + + + + | CRP | 3.1 (H)Comment: Testing | <0.5 mg/dL | [facility] | | | performed at [facility];[address] | [address] | | [address];[place] | | | | | [address] | | | + + + + + + + | Specimen | + + | Blood | + + + + + + + | Performing | Address | City/State/Zipcode | Phone Number | | Organization | | | | + + + + + | [facility] | [address] | [place] [address] | | + + + + + [...] + + + | [facility] | [address] | [place] [address] | [phone] | | LABORATORY | [address]vd[address] | | [...] The | 4.0 - 6.0 % | [facility] | | | [place] Diabetes | | LABORATORY | | | [...] | 148Comment: The ADA | mg/dL | [facility] | | GLUCOSE | considers an eAG [...] | | | | | performed at [facility], [address] | | | | [address], | | | | | [place] [address] | | | + + + + + + + | Specimen | + + | Blood | + + + + + + + | Performing | Address | City/State/Zipcode | Phone Number | | Organization | | | | + + + + + | [facility] | [address] | [place] [address] | [phone] | | LABORATORY | [address] | | | + + + + + Phosphorus (03/12/2018 4:52 AM) + + + + + | Component | Value | Ref Range | Performed At | + + + + + | PHOSPHORUS | 3.7Comment: Testing | 2.3 - 4.8 mg/dL | [facility] | | | performed at [facility], [address] | | LABORATORY | | | [address], | | | | | [place] [address] | | | + + + + + + + | Specimen | + + | Blood | + + + + + + + | Performing | Address | City/State/Zipcode | Phone Number | | Organization | | | | + + + + + | [facility] | [address] | [place] [address] | [phone] | | LABORATORY | [address]vd[address] | | [...] | + + + + + | [facility] | [address] | [place] [address] | | + + + + + [...] | tibial artery bypass graft using 4 [place] Sol[employer] AngioJet | | | catheter 5. Angioplasty of right posterior tibial artery using 2.5 x | | | 120 mm angioplasty balloon 6. Angioplasty of right leg bypass graft | | | and popliteal artery using 4 x 150 mm angioplasty balloon SURGEON: | | | Long Ferrera MD CLIENT STRATEGIST: None ANESTHESIA: Moderate sedation and | | [...] and | | | brought to the Animal Eviscerator. The patient was placed supine on the [...] wire and up sized to a 4 [place] sheath. A | | | Omni flush [...] inserted over the catheter and the 4 [place] sheath was removed. A 7 | | | [place] destination sheath was then inserted over the [...] artery bypass was then performed using 4 [place] | | | Sol[employer] AngioJet catheter. [...] artery bypass graft using | | 4 [place] [employer] AngioJet catheter5. Angioplasty of right posterior tibial artery | | using 2.5 x 120 mm angioplasty balloon6. Angioplasty of right leg bypass graft and | | popliteal artery using 4 x 150 mm angioplasty balloonSURGEON: SVITLANA CeullarISTANT: | | NoneANESTHESIA: Moderate sedation and local [...] identified and brought | | to the Animal Eviscerator. The patient was placed supine on the [...] | and up sized to a 4 [place] sheath. A Omni flush catheter was then [...] inserted over the catheter and the 4 [place] sheath was removed. A 7 [place] | | destination sheath was then inserted [...] was | | then performed using 4 [place] Sol[employer] AngioJet catheter. After mechanical | [...] | + + + + + | [facility] | [address] | [place] [address] | | + + + + + [...] | tibial artery bypass graft using 4 [place] [employer] AngioJet | | | catheter 5. Angioplasty of right posterior tibial artery using 2.5 x | | | 120 mm angioplasty balloon 6. Angioplasty of right leg bypass graft | | | and popliteal artery using 4 x 150 mm angioplasty balloon SURGEON: | | | Long Ferrera MD CLIENT STRATEGIST: None ANESTHESIA: Moderate sedation and | | [...] and | | | brought to the Animal Eviscerator. The patient was placed supine on the [...] wire and up sized to a 4 [place] sheath. A | | | Omni flush [...] inserted over the catheter and the 4 [place] sheath was removed. A 7 | | | [place] destination sheath was then inserted over the [...] artery bypass was then performed using 4 [place] | | | [employer] AngioJet catheter. [...] artery bypass graft using | | 4 [place] [employer] AngioJet catheter5. Angioplasty of right [...] identified and brought | | to the Animal Eviscerator. The patient was placed supine on the [...] | and up sized to a 4 [place] sheath. A Omni flush catheter was then [...] inserted over the catheter and the 4 [place] sheath was removed. A 7 [place] | | destination sheath was then inserted [...] was | | then performed using 4 [place] [employer] AngioJet catheter. After mechanical | [...] | + + + + + | [facility] | [address] | [place] [address] | | + + + + + US bypass graft lower extremity unilateral (03/11/2018 12:32 PM) + + + | Impressions | Performed At | + + + | 1. Inflow via the right common femoral artery, superficial | [facility] | | femoral artery and proximal [...] Distal anastomosis: Occluded. | | | Outflow (FOLDER AND NOTCHER): Occluded. | | + + + + [...] | | Occluded.Graft distal: Occluded.Distal anastomosis: Occluded.Outflow (FOLDER AND NOTCHER): | | Occluded.IMPRESSION:1. Inflow via the right [...] triphasic flow to the foot.Electronically signed by aMurisio Singh DO on | | 03/11/2018 12:54 PM | |Peroneal artery-distal: PSV: 105.2 (cm/s). Flow: Triphasic. | | | |BYPASS GRAFT EVALUATION | |Inflow (distal popliteal artery): Flow: Occluded. | |Proximal anastomosis: Occluded. | |Graft proximal: Occluded. | |Graft mid: Occluded. | |Graft distal: Occluded. | |Distal anastomosis: Occluded. | |Outflow (FOLDER AND NOTCHER): Occluded. | | | |IMPRESSION: | |1. [...] | + + + + + | [facility] | [address] | [place] [address] | | + + + + + Cardiac Panel (03/11/2018 12:15 PM)Only the most recent of 2 results within the time period is included. + + + + + | Component | Value | Ref Range | Performed At | + + + + + | WBC | 7.36 | 3.80 - 11.00 K/uL | [facility] | + + + + + | RBC | 3.92 (L) | 4.20 - 5.70 M/uL | [facility] | + + + + + | HGB | 11.8 (L) | 13.2 - 17.0 g/dL | [facility] | + + + + + | HCT | 33.9 (L) | 39.0 - 50.0 % | [facility] | + + + + + | MCV | 86.6 | 80.0 - 100.0 fl | [facility] | + + + + + | MCH | 30.0 | 27.0 - 34.0 pg | [facility] | + + + + + | MCHC | 34.7 | 32.0 - 35.5 g/dL | [facility] | + + + + + | RDW SD | 41.1 | 37 - 53 fl | [facility] | + + + + + | PLT | 323 | 150 - 400 K/uL | [facility] | + + + + + | MPV | 7.8 | fl | [facility] | + + + + + | DIFF TYPE | AUTOMATED | | [facility] | + + + + + [...] 0.86 | 0.70 - 1.30 mg/dL | [facility] | + + + [...] >60Comment: GFR <60: | >60 mL/min/1.73m2 | [facility] | | | CHRONIC [...] (L) | 55 - 400 U/L | [facility] | + + + + + | INR | 1.1Comment: REFERENCE | | [facility] | | | RANGE:0.9 [...] 31 | 23 - 32 seconds | [facility] | + + + + + | MMB | 1.3 | 0.5 - 3.6 ng/mL | [facility] | + + + + + | CK-MB Index | 3.3Comment: CK INDEX | | [facility] | | | INTERPRETATION: [...] | | | | | performed at [facility] | | | | | [address];[place], [place] | | | | | [address] | | | + + + + + + + + + + | Performing | Address | City/State/Zipcode | Phone Number | | Organization | | | | + + + + + | [facility] | [address] | [place] [address] | | + + + + + Vancomycin, trough (02/25/2018 8:35 AM)Only the most recent of 2 results within the time shameka carr is included. + + + + + | Component | Value | Ref Range | Performed At | + + + + + | VANCOMYCIN,TROUGH | 18.6Comment: 15 to 20 | 10 - 20 ug/mL | [facility] | | | ug/mL for meningitis, | | | | | osteomyelitis, | | | | | endocarditis, sepsis, or | | | | | healthcare associated | | | | | pneumonia, or an MODESTA | | | | | equal to or greater than | | | | | 1.0 ug/mLTesting | | | | | performed at [facility];[address];[place], [place] | | | | | [address] | | | + + + + + + + + + + | Performing | Address | City/State/Zipcode | Phone Number | | Organization | | | | + + + + + | [facility] | [address] | [place] [address] | | + + + + + [...] | [address] | [place] [address] | | + + + + + POC arterial CG8+ (02/23/2018 8:55 PM) + + + + + | Component | Value | Ref Range | Performed At | + + + + + | pH, Art | 7.362 | 7.350 - 7.450 | [facility] | + + + [...] (H) | 65 - 99 mg/dL | [facility] | + + + + + | POC HCT | 34 (L) | 40.0 - 50.0 % | [facility] | + + + + + | POC HGB | 11.6 (L)Comment: Testing | 13.7 - 16.7 g/dL | [facility] | | | performed at [facility];[address] | | | | | [address];[place], [place] | | | | | [address] | | | + + + + + + + + + + | Performing | Address | City/State/Zipcode | Phone Number | | Organization | | | | + + + + + | [facility] | [address] | [place] [address] | | + + + + + IR angioplasty tiboperoneal additional vessel (02/22/2018 8:55 PM) + + + | Narrative | Performed At | + + + | DATE OF PROCEDURE: 02/22/2018 SURGEON: Johan Rashid MD | [facility] | | PREOPERATIVE DIAGNOSIS: 1) Right [...] was brought to | | | the lab head and placed on supine position. Moderate sedation [...] DETAIL: The patient was brought to the lab head and placed on | | supine position. [...] [facility] | [address] | [place] [address] | | + + + + + [...] was brought to | | | the lab head and placed on supine position. Moderate sedation [...] DETAIL: The patient was brought to the lab head and placed on | | supine position. [...] [facility] | [address] | [place] [address] | | + + + + + IR aortagram abdominal (02/22/2018 8:55 PM) + + + | Narrative | Performed At | + + + | DATE OF PROCEDURE: 02/22/2018 SURGEON: Johan Rashid MD | [facility] | | PREOPERATIVE DIAGNOSIS: 1) Right [...] was brought to | | | the lab head and placed on supine position. Moderate sedation [...] DETAIL: The patient was brought to the lab head and placed on | | supine position. [...] [facility] | [address] | [facility] [address] | | + + + + + POC ACT, arterial (02/22/2018 8:00 PM) + + + + + | Component | Value | Ref Range | Performed At | + + + + + | POC ACT | 241 (H)Comment: Testing | 74 - 137 seconds | [facility] | | | performed at [facility];[address] | [address];[place] | | | | | [address] | | | + + + + + + + + + + | Performing | Address | City/State/Zipcode | Phone Number | | Organization | | | | + + + + + | [facility] | [address] | [place] [address] | | + + + + + [...] In - 02/22/2018 1:20 PM PDT [facility] | | SAPHENOUS VEIN [...] | + + + + + | [facility] | [address] | [place] [address] | | + + + + + [...] [facility] | [address] | [place] [address] | | + + + + + [place] lower extremty arterial right (02/22/2018 7:55 AM) + + + | Impressions | Performed At | + + + | 1. The proximal FOLDER AND NOTCHER appears occluded with distal reconstitution | [facility] [...] systolic velocities (cm/s) / Doppler Waveform: Right: ACCOUNT PLANNER | | | Prox: 124.8 and triphasic DFA Prox: 69.5 and triphasic SFA Prox: | | | 107.7 and triphasic SFA Mid:90.9 and triphasic SFA Distal: 78 and | | | triphasic POP Mid: 65.6 and triphasic Tibioperoneal trunk: 45 and | | | biphasic JOSE ANGEL Prox: 171.1 and triphasic JOSE ANGEL Distal: 107 and | | | monophasic FOLDER AND NOTCHER Prox: 0 and absent FOLDER AND NOTCHER Distal: 28.3 and monophasic | | | SOMAR Prox: 31 and biphasic Peroneal mid: Appears occluded. OSMAR | | | Distal: 88 and monophasic Dorsalis pedis artery: 48 and monophasic | | | Atherosclerosis in arteries of right lower extremity vascular | | | calcifications. The proximal FOLDER AND NOTCHER appears occluded with distal | | | [...] systolic velocities | | (cm/s) / Doppler Waveform:Right:ACCOUNT PLANNER Prox: 124.8 and triphasicDFA Prox: 69.5 and [...] | | lower extremity vascular calcifications.The proximal FOLDER AND NOTCHER appears occluded with distal | | reconstitution via collaterals.Mid peroneal artery appears occluded with distal | | reconstitution via collaterals.Probable hemodynamically significant stenosis in proximal | | JOSE ANGEL.IMPRESSION:1. The proximal FOLDER AND NOTCHER appears occluded with distal reconstitution via | [...] |JOSE ANGEL Distal: 107 and monophasic | |FOLDER AND NOTCHER Prox: 0 and absent | |FOLDER AND NOTCHER Distal: 28.3 and monophasic | |OSMAR Prox: 31 and biphasic | |Peroneal mid: Appears occluded. | |OSMAR Distal: 88 and monophasic | |Dorsalis pedis artery: 48 and monophasic | | | |Atherosclerosis in arteries of right lower extremity vascular calcifications. | | | |The proximal FOLDER AND NOTCHER appears occluded with distal reconstitution via collaterals. | |Mid peroneal artery appears occluded with distal reconstitution via collaterals. | |Probable hemodynamically significant stenosis in proximal JOSE ANGEL. | | | |IMPRESSION: | |1. The proximal FOLDER AND NOTCHER appears occluded with distal reconstitution via collaterals. [...] | [address] | [place] [address] | | + + + + + [...] | LABORATORY | | | TCL, [address] | | | | | [place] | | | | | [address] | | | + + + + + + + + + + | Performing | Address | City/State/Zipcode | Phone Number | | Organization | | | | + + + + + | [facility] | [address] | [place] [address] | [phone] | | LABORATORY | [address]vd[address] | | [...] + + + + + | Specific [place], UA | 1.012 | 1.002 - [...] | [facility] | | | performed at [facility], [address] | | LABORATORY | | | [address] [place], | | | | | [place] [address] | | | + + + + + + + | Specimen | + + | Urine - Urine, Clean | | Catch | + + + + + + + | Performing | Address | City/State/Zipcode | Phone Number | | Organization | | | | + + + + + | [facility] | [address] | [place] [address] | [phone] | | LABORATORY | Blvd[address] | | [...] | + + + + + | [facility] | [address] | [place] [address] | [phone] | | LABORATORY | Blvd[address] | | [...] Testing | 0.4 - 2.0 mmol/L | [facility] | | | performed at [facility];[address] | | [address] | [address];[place] | | | | | [address] | | | + + + + + + + + + + | Performing | Address | City/State/Zipcode | Phone Number | | Organization | | | | + + + + + | [facility] | [address] | [place] [address] | | + + + + + catrina Fink (02/22/2018 3:30 AM) + + + + + | Component | Value | Ref Range | Performed At | + + + + + | BILI, DIRECT | 0.4 (H)Comment: Testing | 0.0 - 0.3 mg/dL | [facility] | | | performed at [facility], [address] | | LABORATORY | | | [address] [place], | | | | | [place] [address] | | | + + + + + + + + + + | Performing | Address | City/State/Zipcode | Phone Number | | Organization | | | | + + + + + | [facility] | [address] | [place] [address] | [phone] | | LABORATORY | [address] | | [...] +------+-------+---------+ | [employer] | [employer] | [id number] | | | | | | WORK [...] | 1961 | [phone] | [place] [address] | | | leroy | | | [phone] | | + +--------+ +--------+ + +
--- OUTSIDE RECORDS SUMMARY | ~2018-04-10 | XMS | Encounter Summary ---
Demographics + + + | Address | [address] | | | [place] [address] | + + + | Home Phone [...] + + + | Author | [facility] [employer] | + + + | Organization | [facility] [employer] | + + + | Address | Unknown | + + + | Phone | Unavailable | + + + Support + + +---------+ + | Name | Relationship | Address | Phone | + + +---------+ + | Megan Walker | ECON | Unknown | | + + +---------+ + Care Team Providers + +------+ + | Care Rail Gang Supervisor Name | Role | Phone | [...] + + + + | 02/21/ | Hospital | [facility] | Rosalva Yates, | Gangrene of right | | 2018 - | Encounter | [facility] 4th | MD Emergency | foot ([facility]) (Primary | | | | Floor [facility] | Department [address] | Dx); Cellulitis of | | 03/01/ | | [address] | [address] | right lower | | 2018 | | [place] [address] | [place] [address] | extremity; Sepsis, | | | | [phone] | [phone] | due to unspecified | | | | | | organism ([facility]); Foot | | | | | Jojo Dudley MD | ulcer with necrosis | | | | | Yovani Hartley MD | of bone, right | | | | | [address] | ([facility]) | | | | | [place] [address] | | | | | | [phone] | | | | | | | | | | | | Mariana, | | | | | | MD Peter [address] | | | | | | [address] | | | | | | [place] [address] | | | | | | [phone] | | | | | | | [...] note may be different from the original. [facility] Service: Hospitalist Physician Discharge Summary Patient [...] seen by our vascular surgery here at [facility] and by podiatry. Two days ago, there were concerns of an infected ulcer on the second toe, right foot, in the distal phalanx, for which he underwent surgical intervention and subsequent am putation on 02/19, two days ago. 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 Patient underwent R. Popliteal to ENGINEERING DEPARTMENT CHAIR bypass and reversed OSV by Dr. Mueller, [...] - TIBIAL; Surgeon: Johan Mueller MD; Location: [facility] OR; Service: Vascular; Laterality: Right; right popliteal to posterior tibial artery by pass with vein harvest FOOT AMPUTATION Right 02/25/2018 Procedure: FOREFOOT - AMPUTATION; Surgeon: Amilcar Garcia DPM; Location: [facility] OR; Chey pollard: Podiatry; Laterality: Right; Right foot transmetatarsal amputation [...] Right Result Date: 02/22/2018 1. The proximal ENGINEERING DEPARTMENT CHAIR appears occluded with distal reconstitution via collaterals. [...] Right forearm Pulse: 102 101 103 Resp: 18 20 Temp: 97.7 F (36.5 C) 98.4 [...] Motor grossly intact. LABS: Recent Labs Lab 02/28/1851002/27/1845202/26/18453 WBC 7.54 9.41 11.23* RBC 3.66* 3.53* 3.84* HGB 11.2* 11.0* 12.0* HCT 32.3* 31.4* 34.4* MCV 88.3 89.1 89.6 MCH 30.5 31.2 31.1 MCHC 34.6 35.1 34.7 RDW 40.7 40.7 41.1 PLT 321 288 269 MPV 7.6 7.6 7.8 DIFFTYPE AUTOMATED AUTOMATED MANUAL Recent Labs Lab 02/28/1851002/27/1845202/26/18 0454 02/22/18 0330 02/21/18 2100 NA 142 [...] up: Johan Mueller MD [address] [facility] [address] Schedule an appointment as soon as possible for a visit in 2 weeks For wound re-check Nicholas Claire MD [address] [facility] [id number] In 3 days Medication List START taking [...] Your Medications These medications were sent to [facility] [address] [place] [id number] acetaminophen 325 MG tablet amoxicillin-clavulanate 875-125 MG [...] of this note may be different from tigist flores. [facility] Service: Vascular Surgery Progress Note Hospital Day: 7 ASSESSMENT & PLAN: 57 yo male patient s/p R popliteal to ENGINEERING DEPARTMENT CHAIR bypass with reversed GSV. - Continue ASA/Plavix. [...] lower limb ischemia PVD (peripheral vascular disease) ([facility]) Essential hypertension DM (diabetes mellitus) ([facility]) Code Status: Full Code Juany Padilla MD 10:03 AM Juany Padilla MD - 02/28/2018 7:22 AM PDTFormatting of this note may be different from t he original. [facility] Service: Vascular Surgery Progress Note Hospital Day: 6 ASSESSMENT & PLAN: 57 yo male patient s/p R popliteal to ENGINEERING DEPARTMENT CHAIR bypass with reversed GSV. - Continue ASA/Plavix. [...] disease) (HCC) Essential hypertension DM (diabetes mellitus) ([facility]) Code Status: Full Code Juany Padilla MD 7:22 AM Juany Padilla MD - 02/27/2018 7:58 AM PDTFormatting of this note may be different from t he original. [facility] Service: Vascular Surgery Progress Note Hospital Day: 5 ASSESSMENT & PLAN: 57 yo male patient s/p R popliteal to ENGINEERING DEPARTMENT CHAIR bypass with reversed GSV. - Continue ASA/Plavix. [...] note may be different from the original. [facility] Service: Hospitalist Progress Note Hospital Day: LOS: 5 days SUBJECTIVE Patient Summary: From [facility] Dr. Peña 02/21/18 The patient is a [...] seen by our vascular surgery here at [facility] and by podiatry. Two days ago, there were concerns of an infected ulcer on the second toe, right foot, in the distal phalanx, for which he underwent surgical intervention and subsequent amp utation on 02/19, two days ago. 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 With [...] 02/23/18. POD#4 U/S shows 1. The proximal ENGINEERING DEPARTMENT CHAIR appears occluded with distal reconstitution via collaterals. [...] may be different from t long original. [facility] Service: Vascular Surgery Progress Note Hospital Day: 4 ASSESSMENT & PLAN: 57 yo male patient s/p R popliteal to ENGINEERING DEPARTMENT CHAIR bypass with reversed GSV. - Continue ASA/Plavix. [...] lower limb ischemia PVD (peripheral vascular disease) ([facility]) Essential hypertension DM (diabetes mellitus) ([facility]) Code Status: Full Code Juany Padilla MD 12:43 PM Amilcar GarciaKRISTINE - 02/26/2018 12:08 PM PDTFormatting of this note may be different from t he original. [facility] Service: Podiatry Progress Note Hospital Day: [...] (02/26 110) Heart Rate: [84-138] 103 (02/26 110) Resp: [8-40] 22 (02/26 110) SpO2: [84 %-97 %] 95 % (02/26 1105) Weight: [106.4 kg (234 lb 9.1 oz)] 106.4 kg (234 lb 9.1 oz) (02/269) FiO2 : [27 %-95 %] 93 % [...] bone, right (HCC) PVD (peripheral vascular disease) ([facility]) Essential hypertension DM (diabetes mellitus) ([facility]) ASSESSMENT & PLAN Gangrene Peripheral arterial disease [...] may be differ ent from the original. [facility] Service: Hospitalist Progress Note Hospital Day: LOS: 4 days SUBJECTIVE Patient Summary: From [facility] Dr. Peña 02/21/18 The patient is a [...] seen by our vascular surgery here at [facility] and by podiatry. Two days ago, there were concerns of an infected ulcer on the second toe, right foot, in the distal phalanx, for which he underwent surgical intervention and subsequent amp utation on 02/19, two days ago. The patient refers that there were no surgical complication s, and when he went today for a followup with his natural gas shothole driller, when they took off the bandage s [...] - - 114 - 97 % - 02/25/180 167/70 - - 115 29 96 % - 02/25/185 181/86 - - 113 24 96 % - 02/25/18 2110 183/84 - - 114 28 90 % - 02/25/182104 146/77 - - 116 30 95 % - 02/25/18 2100 150/68 - - 118 8 95 % [...] Foot ulcer with necrosis of bone, right ([facility]) PVD (peripheral vascular disease) ([facility]) Essential hypertension DM (diabetes mellitus) ([facility]) ASSESSMENT & PLAN -Right foot erythema. With [...] 02/23/18. POD#3 U/S shows 1. The proximal ENGINEERING DEPARTMENT CHAIR appears occluded with distal reconstitution via collaterals. [...] Jojo Dudley MD 02/26/2018 11:01 AM Joey Purcell, [facility] - 02/25/2018 9:51 PM PDTNote ccl 111.5ml/min meds reviewed pharma cy will follow [facility] 2151MojohnPuja, [facility] - 02/25/2018 11:43 AM PDTClinical Pharmacy Note [...] note may be different from the original. [facility] Service: Hospitalist Progress Note Hospital Day: LOS: 3 days SUBJECTIVE Patient Summary: From [facility] Dr. Peña 02/21/18 The patient is a [...] seen by our vascular surgery here at [facility] and by podiatry. Two days ago, there were concerns of an infected ulcer on the second toe, right foot, in the distal phalanx, for which he underwent surgical intervention and subsequent amp utation on 02/19, two days ago. The patient refers that there were no surgical complication s, and when he went today for a followup with his natural gas shothole driller, when they took off the bandage s [...] reviewed. DATA Recent Labs Lab 02/25/18 0835 02/23/18 2055 02/23/18 1609 02/22/18 0330 WBC 12.16* -- 10.11 [...] Recent Labs Lab 02/25/18 0835 02/24/18 0418 02/23/18 2055 02/22/18 0330 02/21/18 2100 NA 139 139 -- [...] Foot ulcer with necrosis of bone, right ([facility]) PVD (peripheral vascular disease) ([facility]) Essential hypertension DM (diabetes mellitus) ([facility]) ASSESSMENT & PLAN -Right foot erythema. With [...] 02/23/18. POD#2 U/S shows 1. The proximal ENGINEERING DEPARTMENT CHAIR appears occluded with distal reconstitution via collaterals. [...] note may be different from the original. [facility] Service: Vascular Surgery Progress Note Hospital [...] sodium chloride (IV) 110 mL/hr at 02/24/18 8044 PRN Medications acetaminophen OR acetaminophen, dextrose, dextrose, [...] (HCC) Essential hypertension DM (diabetes mellitus) (HCC) ASSESSMENT & PLAN PLAN PER DR MUELLER-The [...] note may be different from the original. [facility] Service: Vascular Surgery Progress Note Hospital [...] well perfused. He was ev aluated by natural gas shothole driller, Dr. Garcia who will proceed with transmetatarsal [...] sodium chloride (IV) 110 mL/hr at 02/24/18 0879 PRN Medications acetaminophen OR acetaminophen, dextrose, dextrose, [...] disease) (HCC) Essential hypertension DM (diabetes mellitus) ([facility]) ASSESSMENT & PLAN Critical limb ischemia with [...] can be removed at [facility] of [facility] if patient is discharged. Physical therapy and weight bearing status per Podiatry recom mendation. The patient will most likely be non weight bearing on his right foot until TMA co mpletely heals up. Encourage incentive spirometry breathing exercise. Continue pain manageme nt. Disposition: Continue medical management Code Status: Full Code Johan Mueller MD 02/25/2018MoPuja lopez RP - 02/24/2018 12:13 PM PDTClinical Pharmacy Note: [...] may be different from t long original. [facility] Service: Podiatry Progress Note Hospital Day: [...] F (37.4 C)] 97.5 F (36.4 C) (02/24 0424) BP: (113-158)/(57-89) 136/74 (02/24 0600) Heart Rate: [94-105] 97 (02/24 600) Resp: [14-24] 14 (02/24 0424) SpO2: [90 %-99 %] 96 % (02/24 [...] disease) (HCC) Essential hypertension DM (diabetes mellitus) ([facility]) ASSESSMENT & PLAN Gangrene Peripheral arterial disease [...] may be differ ent from the original. [facility] Service: Hospitalist Progress Note Hospital Day: LOS: 2 days SUBJECTIVE Patient Summary: From [facility] Dr. Peña 02/21/18 The patient is a [...] seen by our vascular surgery here at [facility] and by podiatry. Two days ago, there were concerns of an infected ulcer on the second toe, right foot, in the distal phalanx, for which he underwent surgical intervention and subsequent amp utation on 02/19, two days ago. The patient refers that there were no surgical complication s, and when he went today for a followup with his natural gas shothole driller, when they took off the bandage s [...] and vitals reviewed. DATA Recent Labs Lab 02/23/18205402/23/18 1609 02/22/18 0330 02/21/18 2100 WBC -- [...] 106 -- 102 97* CO2 22* -- 28 BUN 14 -- 15 14 CREATININE [...] Foot ulcer with necrosis of bone, right ([facility]) PVD (peripheral vascular disease) ([facility]) Essential hypertension DM (diabetes mellitus) ([facility]) ASSESSMENT & PLAN -Right foot erythema. With [...] 02/23/18. POD#1 U/S shows 1. The proximal ENGINEERING DEPARTMENT CHAIR appears occluded with distal reconstitution via collaterals. [...] note may be different from the original. [facility] Service: Hospitalist Progress Note Hospital Day: LOS: 1 day SUBJECTIVE Patient Summary: From [facility] Dr. Peña 02/21/18 The patient is a [...] seen by our vascular surgery here at [facility] and by podiatry. Two days ago, there were concerns of an infected ulcer on the second toe, right foot, in the distal phalanx, for which he underwent surgical intervention and subsequent amp utation on 02/19, two days ago. The patient refers that there were no surgical complication s, and when he went today for a followup with his natural gas shothole driller, when they took off the bandage s [...] - - 105 - 97 % - 02/22/182257 132/75 99.4 F (37.4 C) Oral 104 16 96 % - 02/22/180 131/80 - - 103 - 97 % [...] - 105 18 100 % - 02/22/18 194 151/81 - - 109 16 100 % - 02/22/181934 135/75 - - 107 16 100 % - 02/22/18 1930 139/81 - - 107 20 100 % - 02/22/181924 131/81 - - 109 16 100 % - 02/22/18 192 138/81 - - 109 16 100 % - 02/22/18 191 119/75 - - 107 16 100 % - 02/22/18 191 128/77 - - 106 16 100 % - 02/22/18 190 151/77 - - 105 16 98 % [...] vitals reviewed. DATA Recent Labs Lab 02/22/18 03302/21/18 2100 WBC 15.21* 16.21* RBC 4.18* 4.73 [...] bone, right (HCC) PVD (peripheral vascular disease) ([facility]) Essential hypertension DM (diabetes mellitus) ([facility]) ASSESSMENT & PLAN -Right foot erythema. With [...] on 02/22-. U/S shows 1. The proximal ENGINEERING DEPARTMENT CHAIR appears occluded with distal reconstitution via collaterals. [...] note may be different from the original. [facility] Service: Hospitalist Progress Note Hospital Day: LOS: 0 days SUBJECTIVE Patient Summary: From [facility] Dr. Peña 02/21/18 The patient is a [...] seen by our vascular surgery here at [facility] and by podiatry. Two days ago, there were concerns of an infected ulcer on the second toe, right foot, in the distal phalanx, for which he underwent surgical intervention and subsequent amp utation on 02/19, two days ago. The patient refers that there were no surgical complication s, and when he went today for a followup with his natural gas shothole driller, when they took off the bandage s [...] - - - 98 % - - 02/21/18 2252 139/69 - - - - 93 % - - 02/21/18 2247 134/64 99 F (37.2 C) Oral 103 17 99 % - - 02/21/182216 135/69 - - - - 98 % - - 02/21/182210 132/74 - - 104 16 98 % - - 02/21/187 116/59 - - 108 16 97 % - - 02/21/182127 134/59 - - 115 15 99 % - - 02/21/184 153/78 100.1 F (37.8 C) Oral 111 19 97 % - - 02/21/182005 157/75 99.6 F (37.6 C) - 114 20 98 % - 94.7 kg (208 lb 12.4 oz) Intake/Output Summary (Last 24 hours) at 02/22/18617 Last data filed at 02/21/18 2254 Gross per 24 hour Intake 50 ml [...] Foot ulcer with necrosis of bone, right ([facility]) PVD (peripheral vascular disease) ([facility]) Essential hypertension DM (diabetes mellitus) ([facility]) ASSESSMENT & PLAN -Right foot erythema. With [...] vascular interventions. U/S shows 1. The proximal ENGINEERING DEPARTMENT CHAIR appears occluded with distal reconstitution via collaterals. [...] | | | | | | [place], [place] | | | | | | [address] [...] | + +--------+ + + + | [facility] | MICHAELA | 02/22/2018 | [...] | + +--------+ + + + | [facility] CARD PANEL W/O | STAT | 02/21/2018 [...] Testing | 65 - 99 mg/dL | [facility] | | | performed at [facility];[address] | | | | | [address];[place] | | | | | [address] | | | + + + + + + + + + + | Performing | Address | City/State/Zipcode | Phone Number | | Organization | | | | + + + + + | [facility] | [address] | [place] [address] | | + + + + + POCT glucose (03/01/2018 5:26 AM) + + + + + | Component | Value | Ref Range | Performed At | + + + + + | GLUCOSE,POC SCREEN | 147 (H)Comment: Testing | 65 - 99 mg/dL | [facility] | | | performed at [facility];[address] | | | | | [address];[place] | | | | | [address] | | | + + + + + + + + + + | Performing | Address | City/State/Zipcode | Phone Number | | Organization | | | | + + + + + | [facility] | [address] | [place] [address] | | + + + + + [...] | [facility] | | | performed at [facility], [address] | | LABORATORY | | | [address], | | | | | [place] [address] | | | + + + + + + + | Specimen | + + | Blood | + + + + + + + | Performing | Address | City/State/Zipcode | Phone Number | | Organization | | | | + + + + + | [facility] | [address] | [place] [address] | [phone] | | LABORATORY | [address] | | [...] | | | | | performed at [facility], [address] | | | | | [facility], | | | | | [place] [address] | | | + + + + + + + | Specimen | + + | Blood | + + + + + + + | Performing | Address | City/State/Zipcode | Phone Number | | Organization | | | | + + + + + | [facility] | [address] | [place] [address] | [phone] | | LABORATORY | [address] | | | + + + + + POCT glucose (02/28/2018 9:04 PM) + + + + + | Component | Value | Ref Range | Performed At | + + + + + | GLUCOSE,POC SCREEN | 253 (H)Comment: Testing | 65 - 99 mg/dL | [facility] | | | performed at [facility];[address] | | | | | [address];[place], [place] | | | | | [address] | | | + + + + + + + + + + | Performing | Address | City/State/Zipcode | Phone Number | | Organization | | | | + + + + + | [facility] | [address] | [facility] [place] [address] | | + + + + + POCT glucose (02/28/2018 5:08 PM) + + + + + | Component | Value | Ref Range | Performed At | + + + + + | GLUCOSE,POC SCREEN | 223 (H)Comment: Testing | 65 - 99 mg/dL | [facility] | | | performed at [facility];[address] | [address] | | [address];[place] | | | | | [address] | | | + + + + + + + + + + | Performing | Address | City/State/Zipcode | Phone Number | | Organization | | | | + + + + + | [facility] | [address] | [place] [address] | | + + + + + POCT glucose (02/28/2018 12:01 PM) + + + + + | Component | Value | Ref Range | Performed At | + + + + + | GLUCOSE,POC SCREEN | 186 (H)Comment: Testing | 65 - 99 mg/dL | [facility] | | | performed at [facility];[address] | | | | | [address];[place] | | | | | [address] | | | + + + + + + + + + + | Performing | Address | City/State/Zipcode | Phone Number | | Organization | | | | + + + + + | [facility] | [address] | [place] [address] | | + + + + + [...] | [facility] | | | performed at [facility], [address] | | LABORATORY | | | [address], | | | | | [place] [address] | | | + + + + + + + | Specimen | + + | Blood | + + + + + + + | Performing | Address | City/State/Zipcode | Phone Number | | Organization | | | | + + + + + | [facility] | [address] | [place] [address] | [phone] | | LABORATORY | [address] | | [...] | | | | | performed at [facility], [address] | | | | | [facility], | | | | | [place] [address] | | | + + + + + + + | Specimen | + + | Blood | + + + + + + + | Performing | Address | City/State/Zipcode | Phone Number | | Organization | | | | + + + + + | [facility] | [address] | [place] [address] | [phone] | | LABORATORY | [address] | | | + + + + + POCT glucose (02/28/2018 5:05 AM) + + + + + | Component | Value | Ref Range | Performed At | + + + + + | GLUCOSE,POC SCREEN | 178 (H)Comment: Testing | 65 - 99 mg/dL | [facility] | | | performed at [facility];[address] | | | | | [address];[place] | | | | | [address] | | | + + + + + + + + + + | Performing | Address | City/State/Zipcode | Phone Number | | Organization | | | | + + + + + | [facility] | [address] | [place] [address] | | + + + + + Pathology histology - tissue (02/28/2018) + + | Specimen | + + | Tissue | + + + + + | Narrative | Performed At | + + + | SPECIMEN(S): A Rt. TRANSMETATARSAL AMPUTATION SPECIMEN SOURCE: | [facility] | | A. Rt. TRANSMETATARSAL AMPUTATION CLINICAL [...] | bone has a deep red discoloration. Museum Director sections are | | | submitted in [...] | | | preparation was performed by [employer], [facility] | | | [address] [address] (Medical | | | Director: Ha Couch M.D.; VANDANA#: [id number]). | | | Diagnostician: Ha Couch MD [...] Testing | 65 - 99 mg/dL | [facility] | | | performed at [facility];[address] | | | | | [address];[place] | | | | | [address] | | | + + + + + + + + + + | Performing | Address | City/State/Zipcode | Phone Number | | Organization | | | | + + + + + | [facility] | [address] | [place] [address] | | + + + + + POCT glucose (02/27/2018 4:19 PM) + + + + + | Component | Value | Ref Range | Performed At | + + + + + | GLUCOSE,POC SCREEN | 189 (H)Comment: Testing | 65 - 99 mg/dL | [facility] | | | performed at [facility];[address] | | | | | [address];[place] | | | | | [address] | | | + + + + + + + + + + | Performing | Address | City/State/Zipcode | Phone Number | | Organization | | | | + + + + + | [facility] | [address] | [place] [address] | | + + + + + POCT glucose (02/27/2018 11:02 AM) + + + + + | Component | Value | Ref Range | Performed At | + + + + + | GLUCOSE,POC SCREEN | 200 (H)Comment: Testing | 65 - 99 mg/dL | [facility] | | | performed at [facility];[address] | | | | | [address];[place] | | | | | [address] | | | + + + + + + + + + + | Performing | Address | City/State/Zipcode | Phone Number | | Organization | | | | + + + + + | [facility] | [address] | [place] [address] | | + + + + + POCT glucose (02/27/2018 5:17 AM) + + + + + | Component | Value | Ref Range | Performed At | + + + + + | GLUCOSE,POC SCREEN | 159 (H)Comment: Testing | 65 - 99 mg/dL | [facility] | | | performed at [facility];[address] | | | [address];[place] | | | | | [address] | | | + + + + + + + + + + | Performing | Address | City/State/Zipcode | Phone Number | | Organization | | | | + + + + + | [facility] | [address] | [place] [address] | | + + + + + [...] | [facility] | | | performed at [facility], [address] | | LABORATORY | | | [address] [facility], | | | | | [place] [address] | | | + + + + + + + | Specimen | + + | Blood | + + + + + + + | Performing | Address | City/State/Zipcode | Phone Number | | Organization | | | | + + + + + | [facility] | [address] [address] [facility] | [place] [address] | [phone] | | LABORATORY | [address] | | [...] (L) | 8.5 - 10.5 mg/dL | [facility] | | | | | LABORATORY | + + + + + | EGFR | >60Comment: GFR <60: | >60 mL/min/1.73m2 | [facility] | | | CHRONIC KIDNEY DISEASE, [...] | | | | | performed at [facility], [address] | | | | | [facility], | | | | | [place] [address] | | | + + + + + + + | Specimen | + + | Blood | + + + + + + + | Performing | Address | City/State/Zipcode | Phone Number | | Organization | | | | + + + + + | [facility] | [address] [facility] | [place] [address] | [phone] | | LABORATORY | [address] | | | + + + + + POCT glucose (02/26/2018 9:06 PM) + + + + + | Component | Value | Ref Range | Performed At | + + + + + | GLUCOSE,POC SCREEN | 213 (H)Comment: Testing | 65 - 99 mg/dL | [facility] | | | performed at [facility];[address] | | | | | [address];[place] | | | | | [address] | | | + + + + + + + + + + | Performing | Address | City/State/Zipcode | Phone Number | | Organization | | | | + + + + + | [facility] | [address] | [place] [address] | | + + + + + POCT glucose (02/26/2018 5:00 PM) + + + + + | Component | Value | Ref Range | Performed At | + + + + + | GLUCOSE,POC SCREEN | 229 (H)Comment: Testing | 65 - 99 mg/dL | [facility] | | | performed at [facility];[address] | | | | | [address];[place] | | | | | [address] | | | + + + + + + + + + + | Performing | Address | City/State/Zipcode | Phone Number | | Organization | | | | + + + + + | [facility] | [address] | [place] [address] | | + + + + + POCT glucose (02/26/2018 11:04 AM) + + + + + | Component | Value | Ref Range | Performed At | + + + + + | GLUCOSE,POC SCREEN | 292 (H)Comment: Testing | 65 - 99 mg/dL | [facility] | | | performed at [facility];[address] | | | | | [address];[place] | | | | | [address] | | | + + + + + + + + + + | Performing | Address | City/State/Zipcode | Phone Number | | Organization | | | | + + + + + | [facility] | [address] | [place] [address] | | + + + + + POCT glucose (02/26/2018 5:18 AM) + + + + + | Component | Value | Ref Range | Performed At | + + + + + | GLUCOSE,POC SCREEN | 216 (H)Comment: Testing | 65 - 99 mg/dL | [facility] | | | performed at [facility];[address] | | | | | [address];[place] | | | | | [address] | | | + + + + + + + + + + | Performing | Address | City/State/Zipcode | Phone Number | | Organization | | | | + + + + + | [facility] | [address] | [place] [address] | | + + + + + [...] at | | | | | TC, [address] | | | | | [place] | | | | | [address] | | | + + + + + + + | Specimen | + + | Blood | + + + + + + + | Performing | Address | City/State/Zipcode | Phone Number | | Organization | | | | + + + + + | [facility] | [address] | [place] [address] | [phone] | | LABORATORY | [address] | | [...] | | | | | performed at [facility], [address] | | | | | [facility], | | | | | [place] [address] | | | + + + + + + + | Specimen | + + | Blood | + + + + + + + | Performing | Address | City/State/Zipcode | Phone Number | | Organization | | | | + + + + + | [facility] | [address] | [place] [address] | [phone] | | LABORATORY | [address] | | | + + + + + POCT glucose (02/25/2018 9:46 PM) + + + + + | Component | Value | Ref Range | Performed At | + + + + + | GLUCOSE,POC SCREEN | 190 (H)Comment: Testing | 65 - 99 mg/dL | [facility] | | | performed at [facility];[address] | | | | | [address];[place] | | | | | [address] | | | + + + + + + + + + + | Performing | Address | City/State/Zipcode | Phone Number | | Organization | | | | + + + + + | [facility] | [address] | [place] [address] | | + + + + + POCT glucose (02/25/2018 8:24 PM) + + + + + | Component | Value | Ref Range | Performed At | + + + + + | GLUCOSE,POC SCREEN | 207 (H)Comment: Testing | 65 - 99 mg/dL | [facility] | | | performed at [facility];[address] | | | | | [address];[place] | | | | | [address] | | | + + + + + + + + + + | Performing | Address | City/State/Zipcode | Phone Number | | Organization | | | | + + + + + | [facility] | [address] | [place] [address] | | + + + + + POCT glucose (02/25/2018 5:22 PM) + + + + + | Component | Value | Ref Range | Performed At | + + + + + | GLUCOSE,POC SCREEN | 195 (H)Comment: Testing | 65 - 99 mg/dL | [facility] | | | performed at [facility];[address] | | | | | [address];[place] | | | | | [address] | | | + + + + + + + + + + | Performing | Address | City/State/Zipcode | Phone Number | | Organization | | | | + + + + + | [facility] | [address] | [place] [address] | | + + + + + POCT glucose (02/25/2018 4:55 PM) + + + + + | Component | Value | Ref Range | Performed At | + + + + + | GLUCOSE,POC SCREEN | 176 (H)Comment: Testing | 65 - 99 mg/dL | [facility] | | | performed at [facility];[address];[place] | | | | | [address] | | | + + + + + + + + + + | Performing | Address | City/State/Zipcode | Phone Number | | Organization | | | | + + + + + | [facility] | [address] | [place] [address] | | + + + + + POCT glucose (02/25/2018 11:27 AM) + + + + + | Component | Value | Ref Range | Performed At | + + + + + | GLUCOSE,POC SCREEN | 203 (H)Comment: Testing | 65 - 99 mg/dL | [facility] | | | performed at [facility];[address];[place] | | | | | [address] | | | + + + + + + + + + + | Performing | Address | City/State/Zipcode | Phone Number | | Organization | | | | + + + + + | [facility] | [address] | [place] [address] | | + + + + + Vancomycin, trough (02/25/2018 8:35 AM) + + + + + | Component | Value | Ref Range | Performed At | + + + + + | VANCOMYCIN,TROUGH | 18.6Comment: 15 to 20 | 10 - 20 ug/mL | [facility] | | | ug/mL for meningitis, | | | | | osteomyelitis, | | | | | endocarditis, sepsis, or | | | | | healthcare associated | | | | | pneumonia, or an MODESTA | | | | | equal to or greater than | | | | | 1.0 ug/mLTesting | | | | | performed at [facility];[address] | | | | | [address];[place] | | | | | [address] | | | + + + + + + + + + + | Performing | Address | City/State/Zipcode | Phone Number | | Organization | | | | + + + + + | [facility] | [address] | [place] [address] | | + + + + + CBC w/auto diff (reflex to manual) (02/25/2018 8:35 AM) + + + + + | Component | Value | Ref Range | Performed At | + + + + + | WBC | 12.16 (H) | 3.80 - 11.00 K/uL | [facility] | + + + + + | RBC | 3.78 (L) | 4.20 - 5.70 M/uL | [facility] | + + + + + | HGB | 11.6 (L) | 13.2 - 17.0 g/dL | [facility] | + + + + + | HCT | 33.6 (L) | 39.0 - 50.0 % | [facility] | + + + + + | MCV | 88.8 | 80.0 - 100.0 fl | [facility] | + + + + + | MCH | 30.6 | 27.0 - 34.0 pg | [facility] | + + + + + | MCHC | 34.4 | 32.0 - 35.5 g/dL | [facility] | + + + + + | RDW SD | 40.7 | 37 - 53 fl | [facility] | + + + + + | PLT | 274 | 150 - 400 K/uL | [facility] | + + [...] | RBC AND PLT MORPHOLOGY | | [facility] | | | APPEAR NORMAL | | | + + + + + | Diff Comment | SLIDE SCANNED, AGREES | | [facility] | | | WITH AUTOMATED | | | | | RESULTS.Comment: Testing | | | | | performed at [facility];[address] | | | | | [address];[place] | | | | | [address] | | | + + + + + + + | Specimen | + + | Blood | + + + + + + + | Performing | Address | City/State/Zipcode | Phone Number | | Organization | | | | + + + + + | [facility] | [address] | [place] [address] | | + + + + + Basic metabolic panel (02/25/2018 8:35 AM) + + + + + | Component | Value | Ref Range | Performed At | + + + + + | SODIUM | 139 | 135 - 145 mmol/L | [facility] | + + + + + | POTASSIUM | 3.8 | 3.5 - 4.9 mmol/L | [facility] | + + + + + | CHLORIDE | 108 | 99 - 109 mmol/L | [facility] | + + + + + | CO2 | 25 | 23 - 32 mmol/L | [facility] | + + + + + | ANION GAP AGAP | 10 | 5 - 20 mmol/L | [facility] | + + + + + | GLUCOSE | 172 (H) | 65 - 99 mg/dL | [facility] | + + + + + | BUN | 12 | 8 - 25 mg/dL | [facility] | + + + + + | CREATININE | 0.81 | 0.70 - 1.30 mg/dL | [facility] | + + + + + | BUN/CREAT | 15 | | [facility] | + + + + + | CALCIUM | 7.9 (L) | 8.5 - 10.5 mg/dL | [facility] | + + + + + | EGFR | >60Comment: GFR <60: | >60 mL/min/1.73m2 | [facility] | | | CHRONIC KIDNEY [...] the | | | | | MDRD [facility] traceable | | | | | equation.Testing | | | | | performed at [facility];[address] | | | | | [facility];[place], [place] | | | | | [address] | | | + + + + + + + | Specimen | + + | Blood | + + + + + + + | Performing | Address | City/State/Zipcode | Phone Number | | Organization | | | | + + + + + | [facility] | [address] | [place] [address] | | + + + + + POCT glucose (02/25/2018 5:24 AM) + + + + + | Component | Value | Ref Range | Performed At | + + + + + | GLUCOSE,POC SCREEN | 167 (H)Comment: Testing | 65 - 99 mg/dL | [facility] | | | performed at [facility];[address];[place] | | | | | [address] | | | + + + + + + + + + + | Performing | Address | City/State/Zipcode | Phone Number | | Organization | | | | + + + + + | [facility] | [address] | [place] [address] | | + + + + + POCT glucose (02/24/2018 9:01 PM) + + + + + | Component | Value | Ref Range | Performed At | + + + + + | GLUCOSE,POC SCREEN | 240 (H)Comment: Testing | 65 - 99 mg/dL | [facility] | | | performed at [facility];[address] | | | | | [address];[place] | | | | | [address] | | | + + + + + + + + + + | Performing | Address | City/State/Zipcode | Phone Number | | Organization | | | | + + + + + | [facility] | [address] | [place] [address] | | + + + + + POCT glucose (02/24/2018 4:09 PM) + + + + + | Component | Value | Ref Range | Performed At | + + + + + | GLUCOSE,POC SCREEN | 214 (H)Comment: Testing | 65 - 99 mg/dL | [facility] | | | performed at [facility];[address] | | | | | [address];[place] | | | | | [address] | | | + + + + + + + + + + | Performing | Address | City/State/Zipcode | Phone Number | | Organization | | | | + + + + + | [facility] | [address] | [place] [address] | | + + + + + [...] TRANS OXY TENSION MEASUREMENT/ LASER DOPPLER | [facility] | | LIMITED 02/24/2018 11:51 AM HISTORY: [...] + | Zachariah, Rad Results In - 02/24/2018 1:17 PM PDT [...] | + + + + + | [facility] | [address] [facility] | [place] [address] | | + + + + + POCT glucose (02/24/2018 11:20 AM) + + + + + | Component | Value | Ref Range | Performed At | + + + + + | GLUCOSE,POC SCREEN | 153 (H)Comment: Testing | 65 - 99 mg/dL | [facility] | | | performed at [facility];[address] | | | | | [address];[place] | | | | | [address] | | | + + + + + + + + + + | Performing | Address | City/State/Zipcode | Phone Number | | Organization | | | | + + + + + | [facility] | [address] | [place] [address] | | + + + + + POCT glucose (02/24/2018 5:43 AM) + + + + + | Component | Value | Ref Range | Performed At | + + + + + | GLUCOSE,POC SCREEN | 119 (H)Comment: Testing | 65 - 99 mg/dL | [facility] | | | performed at [facility];[address] | | | | | [address];[place] | | | | | [address] | | | + + + + + + + + + + | Performing | Address | City/State/Zipcode | Phone Number | | Organization | | | | + + + + + | [facility] | [address] | [place] [address] | | + + + + + [...] 0.7 | 0.70 - 1.30 mg/dL | [facility] | | | | | LABORATORY | + + + + + | BUN/CREAT | 20 | | [facility] | | | | | LABORATORY | + + + + + | CALCIUM | 7.3 (L) | 8.5 - 10.5 mg/dL | [facility] | | | | | LABORATORY | + + + + + | EGFR | >60Comment: GFR <60: | >60 mL/min/1.73m2 | [facility] | | | CHRONIC KIDNEY DISEASE, [...] | | | | | performed at [facility], [address] | | | | | [facility], | | | | | [place] [address] | | | + + + + + + + | Specimen | + + | Blood | + + + + + + + | Performing | Address | City/State/Zipcode | Phone Number | | Organization | | | | + + + + + | [facility] | [address] [facility] | [place] [address] | [phone] | | LABORATORY | [address] | | | + + + + + POCT glucose (02/24/2018 12:28 AM) + + + + + | Component | Value | Ref Range | Performed At | + + + + + | GLUCOSE,POC SCREEN | 100 (H)Comment: Testing | 65 - 99 mg/dL | [facility] | | | performed at [facility];[address] | | | | | [address];[place], [place] | | | | | [address] | | | + + + + + + + + + + | Performing | Address | City/State/Zipcode | Phone Number | | Organization | | | | + + + + + | [facility] | [address] | [place] [address] | | + + + + + POC arterial CG8+ (02/23/2018 8:55 PM) + + + + + | Component | Value | Ref Range | Performed At | + + + + + | pH, Art | 7.362 | 7.350 - 7.450 | [email or web address] | + + + + + | POC PCO2 | 41 | 35 - 45 mmHg | [email or web address] | + + + + + [...] (L) | 40.0 - 50.0 % | [facility] | + + + + + | POC HGB | 11.6 (L)Comment: Testing | 13.7 - 16.7 g/dL | [facility] | | | performed at [facility];[address] | | | | | [address];[place] | | | | | [address] | | | + + + + + + + + + + | Performing | Address | City/State/Zipcode | Phone Number | | Organization | | | | + + + + + | [facility] | [address] | [place] [address] | | + + + + + POCT glucose (02/23/2018 6:46 PM) + + + + + | Component | Value | Ref Range | Performed At | + + + + + | GLUCOSE,POC SCREEN | 109 (H)Comment: Testing | 65 - 99 mg/dL | [facility] | | | performed at [facility];[address] | | | | | [address];[place], [place] | | | | | [address] | | | + + + + + + + + + + | Performing | Address | City/State/Zipcode | Phone Number | | Organization | | | | + + + + + | [facility] | [address] | [place] [address] | | + + + + + POCT glucose (02/23/2018 4:22 PM) + + + + + | Component | Value | Ref Range | Performed At | + + + + + | GLUCOSE,POC SCREEN | 128 (H)Comment: Testing | 65 - 99 mg/dL | [facility] | | | performed at [facility];[address] | | | | | [address];[place] | | | | | [address] | | | + + + + + + + + + + | Performing | Address | City/State/Zipcode | Phone Number | | Organization | | | | + + + + + | [facility] | [address] | [place] [address] | | + + + + + [...] | | | | | T[address], [address] | | | | | [place] | | | | | [address] | | | + + + + + + + | Specimen | + + | Blood | + + + + + + + | Performing | Address | City/State/Zipcode | Phone Number | | Organization | | | | + + + + + | [facility] | [address] | [place] [address] | [phone] | | LABORATORY | [address] | | | + + + + + Type and Screen (Blood Bank) (02/23/2018 4:09 PM) + + + + + | Component | Value | Ref Range | Performed At | + + + + + | ABO/RH(D) | A POSITIVE | | [facility] | + + + + + | ANTIBODY SCREEN | NEGATIVE | | [facility] | + + + + + | ARM BAND NUMBER | [id number] | | [facility] | | | performed at [facility] | | | | | [address];[place] | | | | | [address] | | | + + + + + + + | Specimen | + + | Blood | + + + + + + + | Performing | Address | City/State/Zipcode | Phone Number | | Organization | | | | + + + + + | [facility] | [address] | [place] [address] | | + + + + + POCT glucose (02/23/2018 12:17 PM) + + + + + | Component | Value | Ref Range | Performed At | + + + + + | GLUCOSE,POC SCREEN | 138 (H)Comment: Testing | 65 - 99 mg/dL | [facility] | | | performed at [facility];[address] | | | | | [address];[place] | | | | | [address] | | | + + + + + + + + + + | Performing | Address | City/State/Zipcode | Phone Number | | Organization | | | | + + + + + | [facility] | [address] | [place] [address] | | + + + + + Vancomycin, trough (02/23/2018 8:21 AM) + + + + + | Component | Value | Ref Range | Performed At | + + + + + | VANCOMYCIN,TROUGH | 16.6Comment: 15 to 20 | 10 - 20 ug/mL | [facility] | | | ug/mL for meningitis, | | | | | osteomyelitis, | | | | | endocarditis, sepsis, or | | | | | healthcare associated | | | | | pneumonia, or an MODESTA | | | | | equal to or greater than | | | | | 1.0 ug/mLTesting | | | | | performed at [facility] | | | | | [address];[place], [place] | | | | | [address] | | | + + + + + + + | Specimen | + + | Blood | + + + + + + + | Performing | Address | City/State/Zipcode | Phone Number | | Organization | | | | + + + + + | [facility] | [address] | [place] [address] | | + + + + + POCT glucose (02/23/2018 5:33 AM) + + + + + | Component | Value | Ref Range | Performed At | + + + + + | GLUCOSE,POC SCREEN | 163 (H)Comment: Testing | 65 - 99 mg/dL | [facility] | | | performed at [facility];[address] | | | | [address];[place] | | | | | [address] | | | + + + + + + + + + + | Performing | Address | City/State/Zipcode | Phone Number | | Organization | | | | + + + + + | [facility] | [address] | [place] [address] | | + + + + + APTT (02/23/2018 12:25 AM) + + + + + | Component | Value | Ref Range | Performed At | + + + + + | APTT | 40 (H)Comment: Testing | 23 - 32 seconds | [facility] | | | performed at [facility];[address] | | | | | [address];[place] | | | | | [address] | | | + + + + + + + | Specimen | + + | Blood | + + + + + + + | Performing | Address | City/State/Zipcode | Phone Number | | Organization | | | | + + + + + | [facility] | [address] | [place] [address] | | + + + + + POCT glucose (02/22/2018 9:39 PM) + + + + + | Component | Value | Ref Range | Performed At | + + + + + | GLUCOSE,POC SCREEN | 95Comment: Testing | 65 - 99 mg/dL | [facility] | | | performed at [facility];[address] | | | | | [address];[place] | | | | | [address] | | | + + + + + + + + + + | Performing | Address | City/State/Zipcode | Phone Number | | Organization | | | | + + + + + | [facility] | [address] | [place] [address] | | + + + + + [...] | + + + + + | [facility] | [address] | [place] [address] | | + + + + + IR angioplasty tiboperoneal additional vessel (02/22/2018 8:55 PM) + + + | Narrative | Performed At | + + + | DATE OF PROCEDURE: 02/22/2018 SURGEON: Johan Mueller MD | [facility] | | PREOPERATIVE DIAGNOSIS: 1) [...] was brought to | | | the livestock laborer and placed on supine position. Moderate sedation [...] | Zachariah, Rad Results In - 02/22/2018 9:46 PM PDT DATE OF PROCEDURE: 02/22/2018SURGEON: | | Johan Boggs Poi, MDPREOPERATIVE DIAGNOSIS:1) Right leg ischemia with non [...] DETAIL: The patient was brought to the livestock laborer and placed on | | supine position. [...] [facility] | [address] | [place] [address] | | + + + + + [...] was brought to | | | the livestock laborer and placed on supine position. Moderate sedation [...] DETAIL: The patient was brought to the livestock laborer and placed on | | supine position. [...] [facility] | [address] | [place] [address] | | + + + + + [...] was brought to | | | the livestock laborer and placed on supine position. Moderate sedation [...] DETAIL: The patient was brought to the livestock laborer and placed on | | supine position. [...] [facility] | [address] | [place] [address] | | + + + + + IR angiogram extremity right (02/22/2018 8:55 PM) + + + | Narrative | Performed At | + + + | DATE OF PROCEDURE: 02/22/2018 SURGEON: Johan Mueller MD | [facility] | | PREOPERATIVE DIAGNOSIS: 1) [...] was brought to | | | the livestock laborer and placed on supine position. Moderate sedation [...] DETAIL: The patient was brought to the livestock laborer and placed on | | supine position. [...] [facility] | [address] | [place] [address] | | + + + + + POC ACT, arterial (02/22/2018 8:00 PM) + + + + + | Component | Value | Ref Range | Performed At | + + + + + | POC ACT | 241 (H)Comment: Testing | 74 - 137 seconds | [facility] | | | performed at [facility];[address] | | | [address];[place] | | | | | [address] | | | + + + + + + + + + + | Performing | Address | City/State/Zipcode | Phone Number | | Organization | | | | + + + + + | [facility] | [address] | [place] [address] | | + + + + + POCT glucose (02/22/2018 5:00 PM) + + + + + | Component | Value | Ref Range | Performed At | + + + + + | GLUCOSE,POC SCREEN | 105 (H)Comment: Testing | 65 - 99 mg/dL | [facility] | | | performed at [facility];[address] | | | | [address];[place] | | | | | [phone] | | | + + + + + + + + + + | Performing | Address | City/State/Zipcode | Phone Number | | Organization | | | | + + + + + | [facility] [facility] | [address] | [place] [address] | | + + + + + POCT glucose (02/22/2018 3:16 PM) + + + + + | Component | Value | Ref Range | Performed At | + + + + + | GLUCOSE,POC SCREEN | 110 (H)Comment: Testing | 65 - 99 mg/dL | [facility] | | | performed at [facility];[address] | | | | | [address];[place] | | | | | [address] | | | + + + + + + + + + + | Performing | Address | City/State/Zipcode | Phone Number | | Organization | | | | + + + + + | [facility] | [address] | [place] [address] | | + + + + + POCT glucose (02/22/2018 1:14 PM) + + + + + | Component | Value | Ref Range | Performed At | + + + + + | GLUCOSE,POC SCREEN | 76Comment: Testing | 65 - 99 mg/dL | [facility] | | | performed at [facility];[address] | | | | | [facility];[place] | | | | | [address] | | | + + + + + + + + + + | Performing | Address | City/State/Zipcode | Phone Number | | Organization | | | | + + + + + | [facility] | [address] | [place] [address] | | + + + + + US greater saphenous vein map bilat (02/22/2018 1:12 PM) + + + | Impressions | Performed At | + + + | 1. Bilateral greater saphenous vein mapping as described above. | [facility] | | | RADIOLOGY | + + + + + + | Narrative | Performed At | + + + | HECTOR WALKER 1962 GREATER SAPHENOUS VEIN MAPPING | [facility] | | BILATERAL 02/22/2018 1:12 PM HISTORY: [...] In - 02/22/2018 1:20 PM PDT HECTOR NASHPTON1963US GREATER | | SAPHENOUS VEIN MAPPING BILATERAL02/22/2018 [...] | + + + + + | [facility] | [address] | [place] [address] | | + + + + + POCT glucose (02/22/2018 11:40 AM) + + + + + | Component | Value | Ref Range | Performed At | + + + + + | GLUCOSE,POC SCREEN | 73Comment: Testing | 65 - 99 mg/dL | [facility] | | | performed at [facility];[address] | | | | | [address];[place] | | | | | [address] | | | + + + + + + + + + + | Performing | Address | City/State/Zipcode | Phone Number | | Organization | | | | + + + + + | [facility] | [address] | [place] [address] | | + + + + + aPTT - Q6 starting in 6 hours x 2 (02/22/2018 11:20 AM) + + + + + | Component | Value | Ref Range | Performed At | + + + + + | APTT | 65 (H)Comment: Testing | 23 - 32 seconds | [facility] | | | performed at [facility];[address] | | | | | [address];[place] | | | | | [address] | | | + + + + + + + | Specimen | + + | Blood | + + + + + + + | Performing | Address | City/State/Zipcode | Phone Number | | Organization | | | | + + + + + | [facility] | [address] | [place] [address] | | + + + + + [...] male with pain and nonhealing wound | [facility] | | TECHNIQUE: Ultrasound interrogation of ankle-brachial [...] | Zachariah, Rad Results In - 02/22/2018 8:03 AM PDT [...] | + + + + + | [facility] | [address] | [place] [address] | | + + + + + US lower extremty arterial right (02/22/2018 7:55 AM) + + + | Impressions | Performed At | + + + | 1. The proximal ENGINEERING DEPARTMENT CHAIR appears occluded with distal reconstitution | KADLEC [...] systolic velocities (cm/s) / Doppler Waveform: Right: CUSTOMER RELATIONS REPRESENTATIVE | | | Prox: 124.8 and triphasic DFA Prox: 69.5 and triphasic SFA Prox: | | | 107.7 and triphasic SFA Mid:90.9 and triphasic SFA Distal: 78 and | | | triphasic POP Mid: 65.6 and triphasic Tibioperoneal trunk: 45 and | | | biphasic JOSE ANGEL Prox: 171.1 and triphasic JOSE ANGEL Distal: 107 and | | | monophasic ENGINEERING DEPARTMENT CHAIR Prox: 0 and absent ENGINEERING DEPARTMENT CHAIR Distal: 28.3 and monophasic | | | OSMAR Prox: 31 and biphasic Peroneal mid: Appears occluded. OSMAR | | | Distal: 88 and monophasic Dorsalis pedis artery: 48 and monophasic | | | Atherosclerosis in arteries of right lower extremity vascular | | | calcifications. The proximal ENGINEERING DEPARTMENT CHAIR appears occluded with distal | | | [...] systolic velocities | | (cm/s) / Doppler Waveform:Right:CUSTOMER RELATIONS REPRESENTATIVE Prox: 124.8 and triphasicDFA Prox: 69.5 and [...] | | lower extremity vascular calcifications.The proximal ENGINEERING DEPARTMENT CHAIR appears occluded with distal | | reconstitution via collaterals.Mid peroneal artery appears occluded with distal | | reconstitution via collaterals.Probable hemodynamically significant stenosis in proximal | | JOSE ANGEL.IMPRESSION:1. The proximal ENGINEERING DEPARTMENT CHAIR appears occluded with distal reconstitution via | [...] |JOSE ANGEL Distal: 107 and monophasic | |ENGINEERING DEPARTMENT CHAIR Prox: 0 and absent | |ENGINEERING DEPARTMENT CHAIR Distal: 28.3 and monophasic | |OSMAR Prox: 31 and biphasic | |Peroneal mid: Appears occluded. | |OSMAR Distal: 88 and monophasic | |Dorsalis pedis artery: 48 and monophasic | | | |Atherosclerosis in arteries of right lower extremity vascular calcifications. | | | |The proximal ENGINEERING DEPARTMENT CHAIR appears occluded with distal reconstitution via collaterals. | |Mid peroneal artery appears occluded with distal reconstitution via collaterals. | |Probable hemodynamically significant stenosis in proximal JOSE ANGEL. | | | |IMPRESSION: | |1. The proximal ENGINEERING DEPARTMENT CHAIR appears occluded with distal reconstitution via collaterals. [...] + + + + + | [facility] | [address] | [place] [address] | | + + + + + [...] at | | LABORATORY | | | [facility], [address] | | | | | [place] | | | | | [address] | | | + + + + + + + + + + | Performing | Address | City/State/Zipcode | Phone Number | | Organization | | | | + + + + + | [facility] | [address] | [place] [address] | [phone] | | LABORATORY | [address]vd[address] | | [...] + + + | [facility] | [address] | [place] [address] | [phone] | | LABORATORY | Blvd[address] | | [...] + + + + + | Specific [place], UA | 1.012 | 1.002 - 1.030 [...] | [facility] | | | performed at [facility], [address] | | LABORATORY | | | [address], | | | | | [place] [address] | | | + + + + + + + | Specimen | + + | Urine - Urine, Clean | | Catch | + + + + + + + | Performing | Address | City/State/Zipcode | Phone Number | | Organization | | | | + + + + + | [facility] | [address] | [place] [address] | [phone] | | LABORATORY | [address]vd[address] | | | + + + + + POCT glucose (02/22/2018 4:06 AM) + + + + + | Component | Value | Ref Range | Performed At | + + + + + | GLUCOSE,POC SCREEN | 93Comment: Testing | 65 - 99 mg/dL | [facility] | | | performed at [facility];[address] | | [address];[place] | | | | | [address] | | | + + + + + + + + + + | Performing | Address | City/State/Zipcode | Phone Number | | Organization | | | | + + + + + | [facility] | [address] | [place] [address] | | + + + + + MRSA by PCR (02/22/2018 4:06 AM) + + + + + | Component | Value | Ref Range | Performed At | + + + + + | SOURCE | NARES(NOSE) | | [facility] | + + + + + | MRSA PCR | NEGATIVEComment: Testing | NEGATIVE | [facility] | | | performed at [facility];[address] | | | | | [address];[place], [place] | | | | | [address] | | | + + + + + + + | Specimen | + + | Nasopharyngeal - | | Nares(Nose) | + + + + + + + | Performing | Address | City/State/Zipcode | Phone Number | | Organization | | | | + + + + + | [facility] | [address] | [place] [address] | | + + + + + Zioni, direct (02/22/2018 3:30 AM) + + + + + | Component | Value | Ref Range | Performed At | + + + + + | BILI, DIRECT | 0.4 (H)Comment: Testing | 0.0 - 0.3 mg/dL | [facility] | | | performed at [facility], [address] | | LABORATORY | | | [address], | | | | | [place] [address] | | | + + + + + + + + + + | Performing | Address | City/State/Zipcode | Phone Number | | Organization | | | | + + + + + | [facility] | [address] | [place] [address] | [phone] | | LABORATORY | [address]vd[address] | | | + + + + + Protime-INR (02/22/2018 3:30 AM) + + + + + | Component | Value | Ref Range | Performed At | + + + + + | INR | 1.1Comment: REFERENCE | | [facility] | | | RANGE:0.9 - | [...] | | | | | performed at [facility];[address] | | | | | [address];[place] | | | | | [address] | | | + + + + + + + + + + | Performing | Address | City/State/Zipcode | Phone Number | | Organization | | | | + + + + + | [facility] | [address] | [place] [address] | | + + + + + Septic Lactic Acid (02/22/2018 3:30 AM) + + + + + | Component | Value | Ref Range | Performed At | + + + + + | LACTIC ACID | 1.2Comment: Testing | 0.4 - 2.0 mmol/L | [facility] | | | performed at [facility];[address] | | | | | [address];[place] | | | | | [address] | | | + + + + + + + + + + | Performing | Address | City/State/Zipcode | Phone Number | | Organization | | | | + + + + + | [facility] | [address] | [place] [address] | | + + + + + aPTT - Q6 starting in 6 hours x 2 (02/22/2018 3:30 AM) + + + + + | Component | Value | Ref Range | Performed At | + + + + + | APTT | 132 ()Comment: PTT | 23 - 32 seconds | [facility] | | | PHONED TO DANNIE SOOD | | | | | AT 0415 BY Material Mix BACK | | | | | RESULTS VERIFIEDTesting | | | | | performed at [facility] | | | | | [address];[place], [place] | | | | | [address] | | | + + + + + + + | Specimen | + + | Blood | + + + + + + + | Performing | Address | City/State/Zipcode | Phone Number | | Organization | | | | + + + + + | [facility] | [address] | [place] [address] | | + + + + + Glycohemoglobin A1C (02/22/2018 3:30 AM) + + + + + | Component | Value | Ref Range | Performed At | + + + + + | HEMOGLOBIN A1C | 7.9 (H)Comment: The | 4.0 - 6.0 % | [facility] | | | [facility] | | LABORATORY | | | [...] | | | | | performed at [facility], [address] | | | | | [facility], | | | | | [place] [address] | | | + + + + + + + | Specimen | + + | Blood | + + + + + + + | Performing | Address | City/State/Zipcode | Phone Number | | Organization | | | | + + + + + | [facility] | [address] | [place] [address] | [phone] | | LABORATORY | Blvd. | | [...] + | BUN/CREAT | 15 | | [facility] | | | | | LABORATORY | + + + + + | CALCIUM | 8.7 | 8.5 - 10.5 mg/dL | [facility] | | | | | LABORATORY | + + + + + | TOTAL PROTEIN | 6.8 | 6.3 - 8.2 g/dL | [facility] | | | | | LABORATORY | [...] 83 | 35 - 115 U/L | [facility] | | | | | LABORATORY | + + + + + | AST | 21 | 10 - 45 U/L | [facility] | | | | | LABORATORY | + + + + + | ALT | 25 | 10 - 65 U/L | [facility] [...] performed at | | | | | [facility], [address] | | | | | [place], | | | | | [place] [address] | | | + + + + + + + | Specimen | + + | Blood | + + + + + + + | Performing | Address | City/State/Zipcode | Phone Number | | Organization | | | | + + + + + | [facility] | [address] | [place] [address] | [phone] | | LABORATORY | [place] | | | + + + + + Magnesium (02/22/2018 3:30 AM) + + + + + | Component | Value | Ref Range | Performed At | + + + + + | MAGNESIUM | 1.9Comment: Testing | 1.7 - 2.4 mg/dL | [facility] | | | performed at [facility], [address] | | LABORATORY | | | [address], | | | | | [place] [address] | | | + + + + + + + | Specimen | + + | Blood | + + + + + + + | Performing | Address | City/State/Zipcode | Phone Number | | Organization | | | | + + + + + | [facility] | [address] | [place] [address] | [phone] | | LABORATORY | Blvd. | | [...] | [facility] | | | performed at [facility], [address] | | LABORATORY | | | [address], | | | | | [place] [address] | | | + + + + + + + | Specimen | + + | Blood | + + + + + + + | Performing | Address | City/State/Zipcode | Phone Number | | Organization | | | | + + + + + | [facility] | [address] | [place] [address] | [phone] | | LABORATORY | Blvd[address] | | [...] | + + + + + | [facility] | [address] | [place] [address] | [phone] | | LABORATORY | Blvd[address] | | | + + + + + | [facility] | [address] | [place] [address] | | + + + + + Cardiac Panel (02/21/2018 9:00 PM) + + + + + | Component | Value | Ref Range | Performed At | + + + + + | WBC | 16.21 (H) | 3.80 - 11.00 K/uL | [facility] | + + + + + | RBC | 4.73 | 4.20 - 5.70 M/uL | [facility] | + + + + + | HGB | 14.6 | 13.2 - 17.0 g/dL | [facility] | + + + + + | HCT | 41.4 | 39.0 - 50.0 % | [facility] | + + + + + | MCV | 87.6 | 80.0 - 100.0 fl | [facility] | + + + + + | MCH | 30.9 | 27.0 - 34.0 pg | [facility] | + + + + + | MCHC | 35.3 | 32.0 - 35.5 g/dL | [email or web address] | + + + + + | RDW SD | 39.8 | 37 - 53 fl | [email or web address] | + + + + + | PLT | 261 | 150 - 400 K/uL | [email or web address] | + + + + + | MPV | 7.3 | fl | [email or web address] | + + + + + [...] | BASOPHILS | 0.20 | % | [facility] | + + + + + | NEUTROPHILS ABS | 14.28 (H) | 1.90 - 7.40 K/uL | [facility] | + + + + + | LYMPHOCYTES ABS | 0.90 (L) | 1.00 - 3.90 K/uL | [facility] | + + + + + | MONOCYTES ABS | 0.99 (H) | 0.00 - 0.80 K/uL | [facility] | + + + + + | EOSINOPHILS ABS | 0.00 | 0.00 - 0.50 K/uL | [facility] | + + + + + | BASOPHILS ABS | 0.03 | 0.00 - 0.10 K/uL | [facility] | + + + + + | MORPHOLOGY | RBC AND PLT MORPHOLOGY | | [facility] | | | APPEAR NORMAL | | | + + + + + | Platelet Estimate | ADEQUATE | | [facility] | + + + + + | Diff Comment | SLIDE SCANNED, AGREES | | [facility] | | | WITH AUTOMATED RESULTS. | | | + + + + + | SODIUM | 134 (L) | 135 - 145 mmol/L | [facility] | + + + + + | POTASSIUM | 4.1 | 3.5 - 4.9 mmol/L | [facility] | + + + + + | CHLORIDE | 97 (L) | 99 - 109 mmol/L | [facility] | + + + + + | CO2 | 28 | 23 - 32 mmol/L | [facility] [...] 9.1 | 8.5 - 10.5 mg/dL | [facility] | + + + + + | TOTAL PROTEIN | 7.9 | 6.3 - 8.2 g/dL | [facility] | + + + + + | Albumin | 2.8 (L) | 3.6 - 5.0 g/dL | [facility] | + + + + + | GLOBULIN | 5.1 (H) | 1.3 - 4.9 g/dL | [facility] | + + + + + | A/G | 0.6 (L) | 1.0 - 2.4 | [facility] | + + + + + | TBIL | 2.0 (H) | 0.1 - 1.5 mg/dL | [facility] | + + + + + | ALK PHOS | 93 | 35 - 115 U/L | [facility] | + + + + + | AST | 30 | 10 - 45 U/L | [facility] | + + + + + | ALT | 28 | 10 - 65 U/L | [facility] | + + + + + | EGFR | >60Comment: GFR <60: | >60 mL/min/1.73m2 | [facility] | | | CHRONIC KIDNEY [...] (L) | 55 - 400 U/L | [facility] | + + + + + | INR | 1.1Comment: REFERENCE | | [facility] | | | RANGE:0.9 - [...] (H) | 23 - 32 seconds | [facility] | + + + + + | MMB | <1.0 | 0.5 - 3.6 ng/mL | [facility] | + + + + + | CK-MB Index | UNABLE TO | | [facility] | | | CALCULATEComment: | | | | | Testing performed at | | | | | [facility];[address];[place] [address] | | | + + + + + + + + + + | Performing | Address | City/State/Zipcode | Phone Number | | Organization | | | | + + + + + | [facility] | [address] | [place] [address] | | + + + + + Blood Culture Set 1 (02/21/2018 9:00 PM) + + + + + | Component | Value | Ref Range | Performed At | + + + + + | Specimen Description | BLOOD | | [facility] | | | | | LABORATORY | + + + + + | SPECIAL REQUESTS | LAC LINE | | [facility] | + + [...] | + + + + + | [facility] | [address] | [place] [address] | [phone] | | LABORATORY | [place] | | | + + + + + | [facility] | [address] | [place] [address] | | + + + + + Septic Lactic Acid (02/21/2018 9:00 PM) + + + + + | Component | Value | Ref Range | Performed At | + + + + + | LACTIC ACID | 1.9Comment: Testing | 0.4 - 2.0 mmol/L | [facility] | | | performed at [facility];[address] | | | | | [address];[place] | | | | | [address] | | | + + + + + + + + + + | Performing | Address | City/State/Zipcode | Phone Number | | Organization | | | | + + + + + | [facility] | [address] | [place] [address] | | + + + + + [...] + + | Critical lower limb ischemia - Primary | + + | Unspecified circulatory system disorder | + + | Gangrene of right foot (HCC) | + + | Cellulitis of right lower extremity | + + | Cellulitis and abscess of leg, except foot | + + | Sepsis, due to unspecified organism (HCC) | + + | Foot ulcer with necrosis of bone, right (HCC) | + + | PVD (peripheral vascular disease) (HCC) | + + | Peripheral vascular disease, unspecified | + + | Essential hypertension | + + | Unspecified essential hypertension | + + | DM (diabetes mellitus) (HCC) | + + | Type II or unspecified type diabetes mellitus without mention of complication, not | | stated as uncontrolled | + + Admitting Diagnoses + + [...] +-------+ +-----+-------+---+ +-------+ +-----+-------+---+ | Given | 02/27/2018 | [...] | | | | First dose on e 02/22/18 at 0300 | | PDT | | [...] +---+---+ | | | +---+---+ + +---------+ +-----+-------+---+ | cefTRIAXone (ROCEPHIN) IVPB 1 g | New Bag | | 1 g | 100 | | | 1 g, Intravenous, Administer | | 8 22:16 | | mL/hr | | | over 30 Minutes, Once, Mon | | PDT | | | | | 02/21/18 at 2154, For 1 dose | | | | | | + +---------+ +-----+-------+---+ +---+---+ | | | +---+---+ + +-------+ +-------+---+---+ | clopidogrel (PLAVIX) tablet 75 | Given | 02/27/2018 | 75 mg | | | | mg 75 mg, Oral, Daily, First | | 08:19 | | | | | dose on 02/22/18 at 0900 | | PDT [...] | | +---+---+ + +-------+ +--------+---+---+ | clopidogrel (PLAVIX) tablet | Given | | 300 mg | | | | Once PRN, Starting e 02/22/18 at | | 8 20:48 | | | | | 8, Intra-procedure (CATH/IR) | | PDT | | | | + +-------+ +--------+---+---+ + +---+ | | | + +---+ | famotidine (PEPCID) IVPB 20 mg | | | 20 mg, Intravenous, Administer | | | over 30 Minutes, 2 Times Daily, | | | First dose on 02/22/18 at 0211 | | + +---+ | [...] 50 mcg 50 mcg, Intravenous, | | 8 20:30 | | | | | Every 5 Min PRN, Pain, Option One | | PDT | | | | | for pain scale 5-10/10. If no | | | | | | | relief, proceed to option 2., | | | | | | | Starting 02/25/18 at 1950, | | | | | | | PACU | | | | | | + +-------+ +--------+---+---+ +-------+ +--------+---+---+ | Given | | 50 mcg | | | | | 8 20:41 | | | | | | PDT | | | | +-------+ +--------+---+---+ +---+---+ | | | +---+---+ + +-------+ +--------+---+---+ | fentaNYL (SUBLIMAZE) injection | Given | | 50 mcg | | | | Once PRN, Starting Tu02/22/18 | | 8 19:03 | | | | | at 1903, Intra-procedure | | PDT | | | | | (CATH/IR) | | | | | | + +-------+ +--------+---+---+ +-------+ +--------+---+---+ | Given | | 50 mcg | | | | | 8 20:04 | | | | | | PDT | | | | +-------+ +--------+---+---+ +---+---+ | | | +---+---+ + +-------+ +--------+---+---+ | heparin (porcine) 1000 UNIT/ML | Given | | 5,000 | | | | injection Once PRN, Starting Tue | | 8 19:26 | Units | | | | 02/22/18 at 1926, Intra-procedure | | PDT | | | | | (CATH/IR) | | | | | | + +-------+ +--------+---+---+ +-------+ +--------+---+---+ | Given | | 3,000 | | | | | 8 19:35 | Units | | | | | PDT | | | | +-------+ +--------+---+---+ +---+---+ | | | +---+---+ + +-------+ +--------+---+---+ | heparin (porcine) 5000 | Given | | 7,600 | | | | unit/0.5mL injection 7,600 Units | | 8 21:41 | Units | | | | 7,600 Units (rounded from 7,576 | | PDT | | | | | Units = 80 Units/kg | | | | | | | 94.7 kg), Intravenous, Once, Mon | | | | | | | 02/21/18 at 2135, For 1 dose | | | | | | + +-------+ +--------+---+---+ +---+---+ | | | +---+---+ + +---------+ + +-------+---+ | heparin 50 units/mL infusion | New Bag | | 18 | 34.1 | | | 18 Units/kg/hr | | 8 21:41 | Units/kg | mL/hr | | | 94.7 kg (34.092 mL/hr, rounded | | PDT | /hr | | | | to 34.1 mL/hr), Intravenous, at | | | | | | | 34.1 mL/hr, Continuous, Starting | | | | | | | 02/21/18 at 2135 | | | | | | + +---------+ + +-------+---+ +---+---+ | | | +---+---+ + + + + +-------+---+ | heparin 50 units/mL infusion | Restarte | | 15 | 28.4 | | | 18 Units/kg/hr | d | 8 05:20 | Units/kg | mL/hr | | | 94.7 kg (34.092 mL/hr, rounded | | PDT | /hr | | | | to 34.1 mL/hr), Intravenous, at | | | | | | | 34.1 mL/hr, Continuous, Starting | | | | | | | 02/22/18 at 0211 | | | | | | + + + + +-------+---+ + + + +-------+---+ | Rate/Dose Verify | | 15 | 28.4 | | | | 8 12:38 | Units/kg | mL/hr | | | | PDT | /hr | | | + + + +-------+---+ | New Bag | | 15 | 28.4 | | | | 8 13:03 | Units/kg | mL/hr | | | [...] | | | | | | Starting [facility] 02/24/18 at 0031 | | | | [...] | | | | | | Starting [facility] 02/24/18 at 0031 | | | | [...] | | +---+---+ + +-------+ +---------+---+---+ | HYDROcodone-acetaminophen | Given | | 2 | | | | (NORCO) 5-325 MG per tablet 2 | | 8 22:14 | tablets | | | | tablet 2 tablet, Oral, Once, Mon | | PDT | | | | | 02/21/18 at 2212, For 1 dose | | | | | | + +-------+ +---------+---+---+ +---+---+ | | | +---+---+ + +-------+ +--------+---+---+ | HYDROmorphone (DILAUDID) | Given | | 0.5 mg | | | | injection 0.5 mg 0.5 mg, | | 8 20:35 | | | | | Intravenous, Every 5 Min PRN, | | PDT | | | | | Pain, Option Two for pain scale | | | | | | | 5-10/10. If no relief, proceed to | | | | | | | option 3., Starting 02/25/18 | | | | | | | at 1950, PACU | | | | | | + +-------+ +--------+---+---+ +-------+ +--------+---+---+ | Given | | 0.5 mg | | | | | 8 20:46 | | | | | | PDT | | | | +-------+ +--------+---+---+ +---+---+ | | | +---+---+ + +-------+ +------+---+---+ | HYDROmorphone (DILAUDID) | Given | | 1 mg | | | | injection 1 mg 1 mg, | | 8 23:27 | | | | | Intravenous, Every 3 Hours PRN, | | PDT | | | | | Severe Pain (7-10), Starting Tue | | | | | | | 02/22/18 at 0209 | | | | | | + +-------+ +------+---+---+ +-------+ +------+---+---+ | Given | | 1 mg | | | | | 8 05:26 | | | | | | PDT | | | | +-------+ +------+---+---+ | Given | | 1 mg | | | | | 8 12:18 | | | | | | PDT | | | | +-------+ +------+---+---+ +---+---+ | | | +---+---+ + +-------+ +------+---+---+ | HYDROmorphone (DILAUDID) | Given | | 1 mg | | | | injection 1 mg 1 mg, | | 8 00:56 | | | | | Intravenous, Every 3 Hours PRN, | | PDT | | | | | Severe Pain (7-10), Starting Leticia | | | | | | | 02/24/18 at 0031 | | | | | | + +-------+ +------+---+---+ +-------+ +---------+---+---+ | Given | | 1 mg | | | | | 8 12:25 | | | | | | PDT | | | | +-------+ +---------+---+---+ | Given | | 0.25 mg | | | | | 8 18:26 | | | | | | PDT [...] | | +---+---+ + +-------+ +--------+---+---+ | iopamidol (ISOVUE-250) 51 % | Given | | 90 mLs | | | | injection 90 mL 90 mL, | | 8 19:05 | | | | | Intra-arterial, Img Once PRN, | | PDT | | | | | Other, Starting 02/22/18 at | | | | | | | 2056, For 1 dose, Intra-procedure | | | | | | | (CATH/IR) | [...] labetalol (NORMODYNE) 5 mg/mL | Given | | 10 mg | | | | injection Once PRN, Starting Wed | | 8 19:52 | | | | | 02/22/18 at 1952 | | PDT | | | | + +-------+ +-------+---+---+ +---+---+ | | | +---+---+ + +-------+ +--------+---+---+ | lidocaine 1 % injection Once | Given | | 10 mLs | | | | PRN, During PCI per physician, | | 8 19:04 | | | | | Starting 02/22/18 at 1904, | | PDT | | | | | Intra-procedure (CATH/IR) | | | | | | + +-------+ +--------+---+---+ +---+---+ | | | +---+---+ + +-------+ +--------+---+---+ | LORazepam (ATIVAN) tablet 0.5 | Given | | 0.5 mg | | | | mg 0.5 mg, Oral, Once, Sat | | 8 20:01 | | | | | 02/26/18 at 2030, For 1 dose | | PDT | [...] | | | | | Constipation, Starting [facility] | | | | | | | [...] Intravenous, Once PRN, Starting | | 8 19:04 | | | | | 02/22/18 at 1904, | | PDT | | | | | Intra-procedure (CATH/IR) | | | | | | + +-------+ +------+---+---+ +-------+ +------+---+---+ | Given | | 1 mg | | | | | 8 20:04 | | | | | | PDT | | | | +-------+ +------+---+---+ +---+---+ | | | +---+---+ + +-------+ +---------+---+---+ | mineral oil enema 1 enema 1 | Given | | 1 enema | | | | enema, Rectal, Once, 02/26/18 | | 8 13:20 | | | | | at 1330, For 1 dose | | PDT | | | | + +-------+ +---------+---+---+ +---+---+ | | | +---+---+ [...] | | | + +---+ + +---------+ +-------+---+---+ | piperacillin-tazobactam (ZOSYN) | New Bag | | 4.5 g | | | | 4-0.5 GM/100ML extended infusion | | 8 23:01 | | | | | bolus 4.5 g 4.5 g, Intravenous, | | PDT | | | | | Administer over 30 Minutes, | | | | | | | Once, 02/21/18 at 2246, For 1 | | | | | | | dose, Administer loading dose | | | | | | | over 30 minutes. | | | | | | + +---------+ +-------+---+---+ +---+---+ | | | +---+---+ + +---------+ +---------+-------+---+ | piperacillin-tazobactam (ZOSYN) | New Bag | | 3.375 g | 12.5 | | | extended infusion 3.375 g 3.375 | | 8 13:04 | | mL/hr | | | g, Intravenous, Administer over | | PDT | | | | | 4 Hours, Every 8 Hours, First | | | | | | | dose on 02/22/18 at 0300 | | | | | | + +---------+ +---------+-------+---+ +---------+ +---------+-------+---+ | New Bag | | 3.375 g | 12.5 | | | | 8 22:07 | | mL/hr | | | | PDT | | | | +---------+ +---------+-------+---+ | New Bag | | 3.375 g | 12.5 | | | | 8 05:27 | | mL/hr | | | | PDT | | | | +---------+ +---------+-------+---+ +---+---+ | | | +---+---+ + +-------+ [...] | | +---+---+ + +-------+ +------+---+---+ | sodium bicarbonate buffer | Given | | 1 mL | | | | (NEUT) injection Once PRN, | | 8 19:04 | | | | | during PCI per physician, | | PDT | | | | | Starting 02/22/18 at 1904 | | | | | | + [...] | + +---+ + +---------+ +---+-------+---+ | sodium chloride 0.9 % infusion | New Bag | | | 110 | | | at 110 mL/hr, Intravenous, | | 8 05:37 | | mL/hr | | | Continuous, Starting 02/22/18 | | PDT | | | | | at 0211 | | | | | | + +---------+ +---+-------+---+ +---------+ +---+-------+---+ | New Bag | | | 110 | | | | 8 14:46 | | mL/hr | | | | PDT | | | | +---------+ +---+-------+---+ | New Bag | 02/27/2018 | | 110 | | | | 03:37 | | mL/hr | | | | PDT | | | | +---------+ +---+-------+---+ +---+---+ | | | +---+---+ + +---------+ + +---+---+ | vancomycin (VANCOCIN) 1500 | New Bag | | 1,500 mg | | | | mg/250 mL IVPB 1,500 mg (rounded | | 8 23:26 | | | | | from 1,420.5 mg = 15 mg/kg | | PDT | | | | | 94.7 kg), Intravenous, | | | | | | | Administer over 90 Minutes, Once, | | | | | | | 02/21/18 at 2300, For 1 dose | | | | | | + +---------+ + +---+---+ +---+---+ | | | [...] | | 12 Hours, First dose on Tue | | | | | | | [...] | | +---+---+ + +-------+ +------+---+---+ | zolpidem (AMBIEN) tablet [...]
--- OUTSIDE RECORDS SUMMARY | ~2018-04-10 | XMS | Encounter Summary ---
Demographics + + + | Address | [address] | | | [place] [address] | + + + | Home Phone [...] + + + | Author | [facility] [employer] | + + + | Organization | [facility] [employer] [facility] | + + + | Address | Unknown | + + + | Phone | Unavailable | + + + Support + + +---------+ + | Name | Relationship | Address | Phone | + + +---------+ + | Megan Walker | ECON | Unknown | | + + +---------+ + Care Team Providers + +------+ + | Care Nuclear Worker Technician Name | Role | Phone | + +------+ + | Nicholas Claire MD | PCP | | + +------+ + Encounter Details +--------+ + + + + | Date | Type | Department | Care Team | Description | +--------+ + + + + | 03/03/ | Orders Only | [facility] | Yesenia Witt, | Foot ulcer with | | 2017 | | Vascular Surgery | RN | necrosis of bone, | | | | [address] | | right ([facility]) (Primary | | | | [address] | | Dx) | | | | [address] | | | | | | [phone] | | | +--------+ + + + [...] | | | | | | [address] [place] | | | | | | [address] | | | | | | | [...] Distal anastomosis: Occluded. | | | Outflow (HOUSEKEEPING CLEANER): Occluded. | | + + + + + | Procedure Note | + + | Zachariah, Rad Results In - 03/11/2018 12:59 PM PDT [facility] | | EXTREMITY UNILATERAL03/11/2018 [...] | | Occluded.Graft distal: Occluded.Distal anastomosis: Occluded.Outflow (HOUSEKEEPING CLEANER): | | Occluded.IMPRESSION:1. Inflow via the right [...] Occluded. | |Distal anastomosis: Occluded. | |Outflow (HOUSEKEEPING CLEANER): Occluded. | | | |IMPRESSION: | |1. [...] + + + | [facility] | [address] | [place] [address] | | + + + + + in this encounter Visit Diagnoses + + | Diagnosis | + + | Foot ulcer with necrosis of bone, right (HCC) - Primary | + +"
--- OUTSIDE RECORDS SUMMARY | ~2018-04-10 | XMS | Encounter Summary ---
Demographics + + + | Address | [address] | | | [place] [address] | + + + | Home Phone | | + + + | Preferred Language | Unknown | + + + | Marital Status | Single | + + + | Synagogue Affiliation | Unknown | + + + | Race | Unknown | + + + | Ethnic Group | Unknown | + + + Author + + + | Author | [facility] [employer] | + + + | Organization | [facility] | + + + | Address | Unknown | + + + | Phone | Unavailable | + + + Support + + +---------+ + | Name | Relationship | Address | Phone | + + +---------+ + | Megan Walker | ECON | Unknown | | + + +---------+ + Care Team Providers + +------+ + | Care Sparmaker Name | Role | Phone | + +------+ + | Nicholas Claire MD | PCP | | + +------+ + Encounter Details +--------+ + + + + | Date | Type | Department | Care Team | Description | +--------+ + + + + | 03/11/ | Procedure | [facility] | | | | 2018 | [facility] | [address] | | | | | | Floor [place] | | | | | | [address] | | | | | | [place] [address] | | | | | | [phone] | | | +--------+ + + + [...]
--- OUTSIDE RECORDS SUMMARY | ~2018-04-10 | XMS | Encounter Summary ---
Demographics + + + | Address | [address] | | | [place] [address] | + + + | Home Phone | | + + + | Preferred Language | Unknown | + + + | Marital Status | Single | + + + | Church Affiliation | Unknown | + + + | Race | Unknown | + + + | Ethnic Group | Unknown | + + + Author + + + | Author | [facility] [employer] | + + + | Organization | [facility] [facility] | + + + | Address | Unknown | + + + | Phone | Unavailable | + + + Support + + +---------+ + | Name | Relationship | Address | Phone | + + +---------+ + | Megan Walker | ECON | Unknown | | + + +---------+ + Care Team Providers + +------+ + | Care Pipe Coremaker Name | Role | Phone | [...] + + | 02/21/ | Hospital | [facility] | Rosalva Yates, | Gangrene of right | | 2018 - | Encounter | [facility] 4th | MD Emergency | foot ([facility]) (Primary | | | | Floor [facility] | Department [address] | Dx); Cellulitis of | | 03/01/ | | [address] | [address] | right lower | | 2018 | | [place] [address] | [place] [address] | extremity; Sepsis, | | | | [phone] | [phone] | due to unspecified | | | | | | organism ([facility]); Foot | | | | | Jojo Dudley MD | ulcer with necrosis | | | | | Yovani Hartley MD | of bone, right | | | | | [address] | ([facility]) | | | | | [place] [address] | | | | | | [phone] | | | | | | | | | | | | Mariana, | | | | | | MD Peter [address] | | | | | | [address] | | | | | | [place] [address] | | | | | | [phone] | | | | | | | [...] note may be different from the original. [facility] Service: Hospitalist Physician Discharge Summary Patient ID: [...] seen by our vascular surgery here at [facility] and by podiatry. Two days ago, there were concerns of an infected ulcer on the second toe, right foot, in the distal phalanx, for which he underwent surgical intervention and subsequent am putation on 02/19, two days ago. The patient refers that there were no surgical complicati ons, and when he went today for a followup with his cupola tender helper, when they took off the browning ges [...] l toes. Patient underwent R. Popliteal to CONTINUOUS IMPROVEMENT COORDINATOR bypass and reversed OSV by Dr. Mueller, [...] - TIBIAL; Surgeon: Johan Mueller MD; Location: [facility] OR; Service: Vascular; Laterality: Right; right popliteal to posterior tibial artery by pass with vein harvest FOOT AMPUTATION Right 02/25/2018 Procedure: FOREFOOT - AMPUTATION; Surgeon: Amilcar Garcia DPM; Location: [facility] OR; Chey pollard: Podiatry; Laterality: Right; [...] Right Result Date: 02/22/2018 1. The proximal CONTINUOUS IMPROVEMENT COORDINATOR appears occluded with distal reconstitution via collaterals. [...] up: Johan Mueller MD [address] [facility] [address] Schedule an appointment as soon as possible for a visit in 2 weeks For wound re-check Nicholas Claire MD [address] [facility] [phone] In 3 days Medication List START taking [...] Your Medications These medications were sent to [facility] [address] [place] [id number] acetaminophen 325 MG tablet amoxicillin-clavulanate 875-125 MG [...] note may be different from tigist flores. [facility] Service: Vascular Surgery Progress Note Hospital Day: 7 ASSESSMENT & PLAN: 57 yo male patient s/p R popliteal to CONTINUOUS IMPROVEMENT COORDINATOR bypass with reversed GSV. - Continue ASA/Plavix. [...] lower limb ischemia PVD (peripheral vascular disease) ([facility]) Essential hypertension DM (diabetes mellitus) ([facility]) Code Status: Full Code Juany Padilla MD 10:03 AM Juany Padilla MD - 02/28/2018 7:22 AM PDTFormatting of this note may be different from t he original. [facility] Service: Vascular Surgery Progress Note Hospital Day: 6 ASSESSMENT & PLAN: 57 yo male patient s/p R popliteal to CONTINUOUS IMPROVEMENT COORDINATOR bypass with reversed GSV. - Continue ASA/Plavix. [...] disease) (HCC) Essential hypertension DM (diabetes mellitus) ([facility]) Code Status: Full Code Juany Padilla MD 7:22 AM Juany Padilla MD - 02/27/2018 7:58 AM PDTFormatting of this note may be different from t he original. [facility] Service: Vascular Surgery Progress Note Hospital Day: 5 ASSESSMENT & PLAN: 57 yo male patient s/p R popliteal to CONTINUOUS IMPROVEMENT COORDINATOR bypass with reversed GSV. - Continue ASA/Plavix. [...] note may be different from the original. [facility] Service: Hospitalist Progress Note Hospital Day: LOS: 5 days SUBJECTIVE Patient Summary: From [facility] Dr. Peña 02/21/18 The patient is [...] seen by our vascular surgery here at [facility] and by podiatry. Two days ago, there were concerns of an infected ulcer on the second toe, right foot, in the distal phalanx, for which he underwent surgical intervention and subsequent amp utation on 02/19, two days ago. The patient refers that there were no surgical complication s, and when he went today for a followup with his cupola tender helper, when they took off the bandage s [...] Foot ulcer with necrosis of bone, right ([facility]) PVD (peripheral vascular disease) ([facility]) Essential hypertension DM (diabetes mellitus) ([facility]) ASSESSMENT & PLAN -Right foot [...] 02/23/18. POD#4 U/S shows 1. The proximal CONTINUOUS IMPROVEMENT COORDINATOR appears occluded with distal reconstitution via collaterals. [...] may be different from t long original. [facility] Service: Vascular Surgery Progress Note Hospital Day: 4 ASSESSMENT & PLAN: 57 yo male patient s/p R popliteal to CONTINUOUS IMPROVEMENT COORDINATOR bypass with reversed GSV. - Continue ASA/Plavix. [...] lower limb ischemia PVD (peripheral vascular disease) ([facility]) Essential hypertension DM (diabetes mellitus) ([facility]) Code Status: Full Code Juany Padilla MD 12:43 PM Amilcar GarciaKRISTINE - 02/26/2018 12:08 PM PDTFormatting of this note may be different from t he original. [facility] Service: Podiatry Progress Note Hospital Day: LOS: [...] bone, right (HCC) PVD (peripheral vascular disease) ([facility]) Essential hypertension DM (diabetes mellitus) ([facility]) ASSESSMENT & PLAN Gangrene Peripheral [...] may be differ ent from the original. [facility] Service: Hospitalist Progress Note Hospital Day: LOS: 4 days SUBJECTIVE Patient Summary: From [facility] Dr. Peña 02/21/18 The patient is [...] seen by our vascular surgery here at [facility] and by podiatry. Two days ago, there were concerns of an infected ulcer on the second toe, right foot, in the distal phalanx, for which he underwent surgical intervention and subsequent amp utation on 02/19, two days ago. The patient refers that there were no surgical complication s, and when he went today for a followup with his cupola tender helper, when they took off the bandage s [...] Foot ulcer with necrosis of bone, right ([facility]) PVD (peripheral vascular disease) ([facility]) Essential hypertension DM (diabetes mellitus) ([facility]) ASSESSMENT & PLAN -Right foot [...] 02/23/18. POD#3 U/S shows 1. The proximal CONTINUOUS IMPROVEMENT COORDINATOR appears occluded with distal reconstitution via collaterals. [...] Jojo Dudley MD 02/26/2018 11:01 AM Joey Purclel, [facility] - 02/25/2018 9:51 PM PDTNote ccl 111.5ml/min meds reviewed pharma cy will follow [facility] [id number], [facility] - 02/25/2018 11:43 AM PDTClinical Pharmacy [...] note may be different from the original. [facility] Service: Hospitalist Progress Note Hospital Day: LOS: 3 days SUBJECTIVE Patient Summary: From [facility] Dr. Peña 02/21/18 The patient is [...] seen by our vascular surgery here at [facility] and by podiatry. Two days ago, there were concerns of an infected ulcer on the second toe, right foot, in the distal phalanx, for which he underwent surgical intervention and subsequent amp utation on 02/19, two days ago. The patient refers that there were no surgical complication s, and when he went today for a followup with his cupola tender helper, when they took off the bandage s [...] Foot ulcer with necrosis of bone, right ([facility]) PVD (peripheral vascular disease) ([facility]) Essential hypertension DM (diabetes mellitus) ([facility]) ASSESSMENT & PLAN -Right foot [...] 02/23/18. POD#2 U/S shows 1. The proximal CONTINUOUS IMPROVEMENT COORDINATOR appears occluded with distal reconstitution via collaterals. [...] note may be different from the original. [facility] Service: Vascular Surgery Progress Note Hospital Day: [...] sodium chloride (IV) 110 mL/hr at 02/24/18 4238 PRN Medications acetaminophen OR acetaminophen, dextrose, dextrose, [...] ca n undergo transmetatarsal amputation by Dr. Amiclar Garcia. Keep Prevena dressing for 7 days [...] note may be different from the original. [facility] Service: Vascular Surgery Progress Note Hospital Day: [...] well perfused. He was ev aluated by cupola tender helper, Dr. Garcia who will proceed with transmetatarsal [...] sodium chloride (IV) 110 mL/hr at 02/24/18 1989 PRN Medications acetaminophen OR acetaminophen, dextrose, dextrose, [...] disease) (HCC) Essential hypertension DM (diabetes mellitus) ([facility]) ASSESSMENT & PLAN Critical limb [...] can be removed at [facility] surgery of [facility] if patient is discharged. Physical therapy and [...] may be different from t long original. [facility] Service: Podiatry Progress Note Hospital Day: LOS: [...] disease) (HCC) Essential hypertension DM (diabetes mellitus) ([facility]) ASSESSMENT & PLAN Gangrene Peripheral [...] may be differ ent from the original. [facility] Service: Hospitalist Progress Note Hospital Day: LOS: 2 days SUBJECTIVE Patient Summary: From [facility] Dr. Peña 02/21/18 The patient is [...] seen by our vascular surgery here at [facility] and by podiatry. Two days ago, there were concerns of an infected ulcer on the second toe, right foot, in the distal phalanx, for which he underwent surgical intervention and subsequent amp utation on 02/19, two days ago. The patient refers that there were no surgical complication s, and when he went today for a followup with his cupola tender helper, when they took off the bandage s [...] Foot ulcer with necrosis of bone, right ([facility]) PVD (peripheral vascular disease) ([facility]) Essential hypertension DM (diabetes mellitus) ([facility]) ASSESSMENT & PLAN -Right foot [...] 02/23/18. POD#1 U/S shows 1. The proximal CONTINUOUS IMPROVEMENT COORDINATOR appears occluded with distal reconstitution via collaterals. [...] note may be different from the original. [facility] Service: Hospitalist Progress Note Hospital Day: LOS: 1 day SUBJECTIVE Patient Summary: From [facility] Dr. Peña 02/21/18 The patient is [...] seen by our vascular surgery here at [facility] and by podiatry. Two days ago, there were concerns of an infected ulcer on the second toe, right foot, in the distal phalanx, for which he underwent surgical intervention and subsequent amp utation on 02/19, two days ago. The patient refers that there were no surgical complication s, and when he went today for a followup with his cupola tender helper, when they took off the bandage s [...] bone, right (HCC) PVD (peripheral vascular disease) ([facility]) Essential hypertension DM (diabetes mellitus) ([facility]) ASSESSMENT & PLAN -Right foot [...] on 02/22-. U/S shows 1. The proximal CONTINUOUS IMPROVEMENT COORDINATOR appears occluded with distal reconstitution via collaterals. [...] note may be different from the original. [facility] Service: Hospitalist Progress Note Hospital Day: LOS: 0 days SUBJECTIVE Patient Summary: From [facility] Dr. Peña 02/21/18 The patient is [...] seen by our vascular surgery here at [facility] and by podiatry. Two days ago, there were concerns of an infected ulcer on the second toe, right foot, in the distal phalanx, for which he underwent surgical intervention and subsequent amp utation on 02/19, two days ago. The patient refers that there were no surgical complication s, and when he went today for a followup with his cupola tender helper, when they took off the bandage s [...] Foot ulcer with necrosis of bone, right ([facility]) PVD (peripheral vascular disease) ([facility]) Essential hypertension DM (diabetes mellitus) ([facility]) ASSESSMENT & PLAN -Right foot [...] vascular interventions. U/S shows 1. The proximal CONTINUOUS IMPROVEMENT COORDINATOR appears occluded with distal reconstitution via collaterals. [...] | | | | | | [place], [place] | | | | | | [...] | + +--------+ + + + | [facility] CARD PANEL W/O | STAT | 02/21/2018 [...] Testing | 65 - 99 mg/dL | [facility] | | | performed at [facility];[address] | | | | | [address];[place] | | | | | [address] | | | + + + + + + + + + + | Performing | Address | City/State/Zipcode | Phone Number | | Organization | | | | + + + + + | [facility] | [address] | [place] [address] | | + + + + + POCT glucose (03/01/2018 5:26 AM) + + + + + | Component | Value | Ref Range | Performed At | + + + + + | GLUCOSE,POC SCREEN | 147 (H)Comment: Testing | 65 - 99 mg/dL | [facility] | | | performed at [facility];[address] | | | | | [address];[place] | | | | | [address] | | | + + + + + + + + + + | Performing | Address | City/State/Zipcode | Phone Number | | Organization | | | | + + + + + | [facility] | [address] | [place] [address] | | + + + + + [...] | [facility] | | | performed at [facility], [address] | | LABORATORY | | | [address], | | | | | [place] [address] | | | + + + + + + + | Specimen | + + | Blood | + + + + + + + | Performing | Address | City/State/Zipcode | Phone Number | | Organization | | | | + + + + + | [facility] | [address] | [place] [address] | [phone] | | LABORATORY | [address] | | [...] | | | | | performed at [facility], [address] | | | | | [facility], | | | | | [place] [address] | | | + + + + + + + | Specimen | + + | Blood | + + + + + + + | Performing | Address | City/State/Zipcode | Phone Number | | Organization | | | | + + + + + | [facility] | [address] | [place] [address] | [phone] | | LABORATORY | [address] | | | + + + + + POCT glucose (02/28/2018 9:04 PM) + + + + + | Component | Value | Ref Range | Performed At | + + + + + | GLUCOSE,POC SCREEN | 253 (H)Comment: Testing | 65 - 99 mg/dL | [facility] | | | performed at [facility];[address] | | | | | [address];[place], [place] | | | | | [address] | | | + + + + + + + + + + | Performing | Address | City/State/Zipcode | Phone Number | | Organization | | | | + + + + + | [facility] | [address] | [facility] [place] [address] | | + + + + + POCT glucose (02/28/2018 5:08 PM) + + + + + | Component | Value | Ref Range | Performed At | + + + + + | GLUCOSE,POC SCREEN | 223 (H)Comment: Testing | 65 - 99 mg/dL | [facility] | | | performed at [facility];[address] | | | | | [address];[place] | | | | | [address] | | | + + + + + + + + + + | Performing | Address | City/State/Zipcode | Phone Number | | Organization | | | | + + + + + | [facility] | [address] | [place] [address] | | + + + + + POCT glucose (02/28/2018 12:01 PM) + + + + + | Component | Value | Ref Range | Performed At | + + + + + | GLUCOSE,POC SCREEN | 186 (H)Comment: Testing | 65 - 99 mg/dL | [facility] | | | performed at [facility];[address] | | | | | [address];[place] | | | | | [address] | | | + + + + + + + + + + | Performing | Address | City/State/Zipcode | Phone Number | | Organization | | | | + + + + + | [facility] | [address] | [place] [address] | | + + + + + [...] | [facility] | | | performed at [facility], [address] | | LABORATORY | | | [address], | | | | | [place] [address] | | | + + + + + + + | Specimen | + + | Blood | + + + + + + + | Performing | Address | City/State/Zipcode | Phone Number | | Organization | | | | + + + + + | [facility] | [address] | [place] [address] | [phone] | | LABORATORY | [address] | | [...] | | | | | performed at [facility], [address] | | | | | [facility], | | | | | [place] [address] | | | + + + + + + + | Specimen | + + | Blood | + + + + + + + | Performing | Address | City/State/Zipcode | Phone Number | | Organization | | | | + + + + + | [facility] | [address] | [place] [address] | [phone] | | LABORATORY | [address] | | | + + + + + POCT glucose (02/28/2018 5:05 AM) + + + + + | Component | Value | Ref Range | Performed At | + + + + + | GLUCOSE,POC SCREEN | 178 (H)Comment: Testing | 65 - 99 mg/dL | [facility] | | | performed at [facility];[address] | | | | | [address];[place] | | | | | [address] | | | + + + + + + + + + + | Performing | Address | City/State/Zipcode | Phone Number | | Organization | | | | + + + + + | [facility] | [address] | [place] [address] | | + + + + + [...] | bone has a deep red discoloration. Com Writer sections are | | | submitted in [...] | | | preparation was performed by [facility], [facility] | | | [address] [address] (Medical | | | Director: Ha Couch M.D.; VANDANA#: [id number]). | | | Diagnostician: Ha Couch MD [...] Testing | 65 - 99 mg/dL | [facility] | | | performed at [facility];[address] | | | | | [address];[place] | | | | | [address] | | | + + + + + + + + + + | Performing | Address | City/State/Zipcode | Phone Number | | Organization | | | | + + + + + | [facility] | [address] | [place] [address] | | + + + + + POCT glucose (02/27/2018 4:19 PM) + + + + + | Component | Value | Ref Range | Performed At | + + + + + | GLUCOSE,POC SCREEN | 189 (H)Comment: Testing | 65 - 99 mg/dL | [facility] | | | performed at [facility];[address] | | | | | [address];[place] | | | | | [address] | | | + + + + + + + + + + | Performing | Address | City/State/Zipcode | Phone Number | | Organization | | | | + + + + + | [facility] | [address] | [place] [address] | | + + + + + POCT glucose (02/27/2018 11:02 AM) + + + + + | Component | Value | Ref Range | Performed At | + + + + + | GLUCOSE,POC SCREEN | 200 (H)Comment: Testing | 65 - 99 mg/dL | [facility] | | | performed at [facility];[address] | | | | | [address];[place] | | | | | [address] | | | + + + + + + + + + + | Performing | Address | City/State/Zipcode | Phone Number | | Organization | | | | + + + + + | [facility] | [address] | [place] [address] | | + + + + + POCT glucose (02/27/2018 5:17 AM) + + + + + | Component | Value | Ref Range | Performed At | + + + + + | GLUCOSE,POC SCREEN | 159 (H)Comment: Testing | 65 - 99 mg/dL | [facility] | | | performed at [facility];[address] | | | | [address];[place] | | | | | [address] | | | + + + + + + + + + + | Performing | Address | City/State/Zipcode | Phone Number | | Organization | | | | + + + + + | [facility] | [address] | [place] [address] | | + + + + + [...] | [facility] | | | performed at [facility], [address] | | LABORATORY | | | [facility] [facility], | | | | | [place] [address] | | | + + + + + + + | Specimen | + + | Blood | + + + + + + + | Performing | Address | City/State/Zipcode | Phone Number | | Organization | | | | + + + + + | [facility] | [address] | [place] [address] | [phone] | | LABORATORY | [address] | | [...] (L) | 8.5 - 10.5 mg/dL | [facility] | | | | | LABORATORY | + + + + + | EGFR | >60Comment: GFR <60: | >60 mL/min/1.73m2 | [facility] | | | CHRONIC KIDNEY DISEASE, [...] | | | | | performed at [facility], [address] | | | | | [facility], | | | | | [place] [address] | | | + + + + + + + | Specimen | + + | Blood | + + + + + + + | Performing | Address | City/State/Zipcode | Phone Number | | Organization | | | | + + + + + | [facility] | [address] | [place] [address] | [phone] | | LABORATORY | [address] | | | + + + + + POCT glucose (02/26/2018 9:06 PM) + + + + + | Component | Value | Ref Range | Performed At | + + + + + | GLUCOSE,POC SCREEN | 213 (H)Comment: Testing | 65 - 99 mg/dL | [facility] | | | performed at [facility];[address] | | | | | [address];[place] | | | | | [address] | | | + + + + + + + + + + | Performing | Address | City/State/Zipcode | Phone Number | | Organization | | | | + + + + + | [facility] | [address] | [place] [address] | | + + + + + POCT glucose (02/26/2018 5:00 PM) + + + + + | Component | Value | Ref Range | Performed At | + + + + + | GLUCOSE,POC SCREEN | 229 (H)Comment: Testing | 65 - 99 mg/dL | [facility] | | | performed at [facility];[address] | | | | | [address];[place] | | | | | [address] | | | + + + + + + + + + + | Performing | Address | City/State/Zipcode | Phone Number | | Organization | | | | + + + + + | [facility] | [address] | [place] [address] | | + + + + + POCT glucose (02/26/2018 11:04 AM) + + + + + | Component | Value | Ref Range | Performed At | + + + + + | GLUCOSE,POC SCREEN | 292 (H)Comment: Testing | 65 - 99 mg/dL | [facility] | | | performed at [facility];[address] | | | | | [address];[place] | | | | | [address] | | | + + + + + + + + + + | Performing | Address | City/State/Zipcode | Phone Number | | Organization | | | | + + + + + | [facility] | [address] | [place] [address] | | + + + + + POCT glucose (02/26/2018 5:18 AM) + + + + + | Component | Value | Ref Range | Performed At | + + + + + | GLUCOSE,POC SCREEN | 216 (H)Comment: Testing | 65 - 99 mg/dL | [facility] | | | performed at [facility];[address] | | | | | [address];[place] | | | | | [address] | | | + + + + + + + + + + | Performing | Address | City/State/Zipcode | Phone Number | | Organization | | | | + + + + + | [facility] | [address] | [place] [address] | | + + + + + [...] | | | | | [facility], [address] | | | | | [place] | | | | | [address] | | | + + + + + + + | Specimen | + + | Blood | + + + + + + + | Performing | Address | City/State/Zipcode | Phone Number | | Organization | | | | + + + + + | [facility] | [address] | [place] [address] | [phone] | | LABORATORY | [address] | | [...] | | | | | performed at [facility], [address] | | | | | [facility], | | | | | [place] [address] | | | + + + + + + + | Specimen | + + | Blood | + + + + + + + | Performing | Address | City/State/Zipcode | Phone Number | | Organization | | | | + + + + + | [facility] | [address] | [place] [address] | [phone] | | LABORATORY | [address] | | | + + + + + POCT glucose (02/25/2018 9:46 PM) + + + + + | Component | Value | Ref Range | Performed At | + + + + + | GLUCOSE,POC SCREEN | 190 (H)Comment: Testing | 65 - 99 mg/dL | [facility] | | | performed at [facility];[address] | | | | | [address];[place] | | | | | [address] | | | + + + + + + + + + + | Performing | Address | City/State/Zipcode | Phone Number | | Organization | | | | + + + + + | [facility] | [address] | [place] [address] | | + + + + + POCT glucose (02/25/2018 8:24 PM) + + + + + | Component | Value | Ref Range | Performed At | + + + + + | GLUCOSE,POC SCREEN | 207 (H)Comment: Testing | 65 - 99 mg/dL | [facility] | | | performed at [facility];[address] | | | | | [address];[place] | | | | | [address] | | | + + + + + + + + + + | Performing | Address | City/State/Zipcode | Phone Number | | Organization | | | | + + + + + | [facility] | [address] | [place] [address] | | + + + + + POCT glucose (02/25/2018 5:22 PM) + + + + + | Component | Value | Ref Range | Performed At | + + + + + | GLUCOSE,POC SCREEN | 195 (H)Comment: Testing | 65 - 99 mg/dL | [facility] | | | performed at [facility];[address] | | | | | [address];[place] | | | | | [address] | | | + + + + + + + + + + | Performing | Address | City/State/Zipcode | Phone Number | | Organization | | | | + + + + + | [facility] | [address] | [place] [address] | | + + + + + POCT glucose (02/25/2018 4:55 PM) + + + + + | Component | Value | Ref Range | Performed At | + + + + + | GLUCOSE,POC SCREEN | 176 (H)Comment: Testing | 65 - 99 mg/dL | [facility] | | | performed at [facility];[address] | | | | | [address];[place] | | | | | [address] | | | + + + + + + + + + + | Performing | Address | City/State/Zipcode | Phone Number | | Organization | | | | + + + + + | [facility] | [address] | [place] [address] | | + + + + + POCT glucose (02/25/2018 11:27 AM) + + + + + | Component | Value | Ref Range | Performed At | + + + + + | GLUCOSE,POC SCREEN | 203 (H)Comment: Testing | 65 - 99 mg/dL | [facility] | | | performed at [facility];[address] | | | | | [address];[place] | | | | | [address] | | | + + + + + + + + + + | Performing | Address | City/State/Zipcode | Phone Number | | Organization | | | | + + + + + | [facility] | [address] | [place] [address] | | + + + + + Vancomycin, trough (02/25/2018 8:35 AM) + + + + + | Component | Value | Ref Range | Performed At | + + + + + | VANCOMYCIN,TROUGH | 18.6Comment: 15 to 20 | 10 - 20 ug/mL | [facility] | | | ug/mL for meningitis, | | | | | osteomyelitis, | | | | | endocarditis, sepsis, or | | | | | healthcare associated | | | | | pneumonia, or an MODESTA | | | | | equal to or greater than | | | | | 1.0 ug/mLTesting | | | | | performed at [facility];[address] | | | | | [address];[place] | | | | | [address] | | | + + + + + + + + + + | Performing | Address | City/State/Zipcode | Phone Number | | Organization | | | | + + + + + | [facility] | [address] | [place] [address] | | + + + + + CBC w/auto diff (reflex to manual) (02/25/2018 8:35 AM) + + + + + | Component | Value | Ref Range | Performed At | + + + + + | WBC | 12.16 (H) | 3.80 - 11.00 K/uL | [facility] | + + + + + | RBC | 3.78 (L) | 4.20 - 5.70 M/uL | [facility] | + + + + + | HGB | 11.6 (L) | 13.2 - 17.0 g/dL | [facility] | + + + + + [...] Comment | SLIDE SCANNED, AGREES | | [facility] | | | WITH AUTOMATED | | | | | RESULTS.Comment: Testing | | | | | performed at [facility];[address] | | | | | [address];[place] | | | | | [address] | | | + + + + + + + | Specimen | + + | Blood | + + + + + + + | Performing | Address | City/State/Zipcode | Phone Number | | Organization | | | | + + + + + | [facility] | [address] | [place] [address] | | + + + + + [...] 10 | 5 - 20 mmol/L | [facility] | + + + + + | GLUCOSE | 172 (H) | 65 - 99 mg/dL | [facility] | + + + + + | BUN | 12 | 8 - 25 mg/dL | [facility] | + + + + + | CREATININE | 0.81 | 0.70 - 1.30 mg/dL | [facility] | + + + + + | BUN/CREAT | 15 | | [facility] | + + + + + | CALCIUM | 7.9 (L) | 8.5 - 10.5 mg/dL | [facility] | + + + + + | EGFR | >60Comment: GFR <60: | >60 mL/min/1.73m2 | [facility] | | | CHRONIC KIDNEY DISEASE, [...] the | | | | | MDRD [facility] traceable | | | | | equation.Testing | | | | | performed at [facility];[address] | | | | | [facility];[place], [place] | | | | | [address] | | | + + + + + + + | Specimen | + + | Blood | + + + + + + + | Performing | Address | City/State/Zipcode | Phone Number | | Organization | | | | + + + + + | [facility] | [address] | [place] [address] | | + + + + + POCT glucose (02/25/2018 5:24 AM) + + + + + | Component | Value | Ref Range | Performed At | + + + + + | GLUCOSE,POC SCREEN | 167 (H)Comment: Testing | 65 - 99 mg/dL | [facility] | | | performed at [facility];[address] | | | | | [address];[place] | | | | | [address] | | | + + + + + + + + + + | Performing | Address | City/State/Zipcode | Phone Number | | Organization | | | | + + + + + | [facility] | [address] | [place] [address] | | + + + + + POCT glucose (02/24/2018 9:01 PM) + + + + + | Component | Value | Ref Range | Performed At | + + + + + | GLUCOSE,POC SCREEN | 240 (H)Comment: Testing | 65 - 99 mg/dL | [facility] | | | performed at [facility];[address] | | | | | [address];[place] | | | | | [address] | | | + + + + + + + + + + | Performing | Address | City/State/Zipcode | Phone Number | | Organization | | | | + + + + + | [facility] | [address] | [place] [address] | | + + + + + POCT glucose (02/24/2018 4:09 PM) + + + + + | Component | Value | Ref Range | Performed At | + + + + + | GLUCOSE,POC SCREEN | 214 (H)Comment: Testing | 65 - 99 mg/dL | [facility] | | | performed at [facility];[address] | | | | | [address];[place] | | | | | [address] | | | + + + + + + + + + + | Performing | Address | City/State/Zipcode | Phone Number | | Organization | | | | + + + + + | [facility] | [address] | [place] [address] | | + + + + + [...] | + + + + + | [facility] | [address] [facility] | [place] [address] | | + + + + + POCT glucose (02/24/2018 11:20 AM) + + + + + | Component | Value | Ref Range | Performed At | + + + + + | GLUCOSE,POC SCREEN | 153 (H)Comment: Testing | 65 - 99 mg/dL | [facility] | | | performed at [facility];[address] | | | | | [address];[place] | | | | | [address] | | | + + + + + + + + + + | Performing | Address | City/State/Zipcode | Phone Number | | Organization | | | | + + + + + | [facility] | [address] | [place] [address] | | + + + + + POCT glucose (02/24/2018 5:43 AM) + + + + + | Component | Value | Ref Range | Performed At | + + + + + | GLUCOSE,POC SCREEN | 119 (H)Comment: Testing | 65 - 99 mg/dL | [facility] | | | performed at [facility];[address] | | | | | [address];[place] | | | | | [address] | | | + + + + + + + + + + | Performing | Address | City/State/Zipcode | Phone Number | | Organization | | | | + + + + + | [facility] | [address] | [place] [address] | | + + + + + [...] 0.7 | 0.70 - 1.30 mg/dL | [facility] | | | | | LABORATORY | + + + + + | BUN/CREAT | 20 | | [facility] | | | | | LABORATORY | + + + + + | CALCIUM | 7.3 (L) | 8.5 - 10.5 mg/dL | [facility] | | | | | LABORATORY | + + + + + | EGFR | >60Comment: GFR <60: | >60 mL/min/1.73m2 | [facility] | | | CHRONIC KIDNEY DISEASE, [...] | | | | | performed at [facility], [address] | | | | | [facility] [place], | | | | | [place] [address] | | | + + + + + + + | Specimen | + + | Blood | + + + + + + + | Performing | Address | City/State/Zipcode | Phone Number | | Organization | | | | + + + + + | [facility] | [address] | [place] [address] | [phone] | | LABORATORY | [address] | | | + + + + + POCT glucose (02/24/2018 12:28 AM) + + + + + | Component | Value | Ref Range | Performed At | + + + + + | GLUCOSE,POC SCREEN | 100 (H)Comment: Testing | 65 - 99 mg/dL | [facility] | | | performed at [facility];[address] | | | | | [address];[place], [place] | | | | | [address] | | | + + + + + + + + + + | Performing | Address | City/State/Zipcode | Phone Number | | Organization | | | | + + + + + | [facility] | [address] | [place] [address] | | + + + + + POC arterial CG8+ (02/23/2018 8:55 PM) + + + + + | Component | Value | Ref Range | Performed At | + + + + + | pH, Art | 7.362 | 7.350 - 7.450 | [facility] | + + + + + | POC PCO2 | 41 | 35 - 45 mmHg | [facility] | + + + + + [...] (L) | 40.0 - 50.0 % | [facility] | + + + + + | POC HGB | 11.6 (L)Comment: Testing | 13.7 - 16.7 g/dL | [facility] | | | performed at [facility];[address] | | | | | [address];[place] | | | | | [address] | | | + + + + + + + + + + | Performing | Address | City/State/Zipcode | Phone Number | | Organization | | | | + + + + + | [facility] | [address] | [place] [address] | | + + + + + POCT glucose (02/23/2018 6:46 PM) + + + + + | Component | Value | Ref Range | Performed At | + + + + + | GLUCOSE,POC SCREEN | 109 (H)Comment: Testing | 65 - 99 mg/dL | [facility] | | | performed at [facility];[address] | | | | | [address];[place], [place] | | | | | [address] | | | + + + + + + + + + + | Performing | Address | City/State/Zipcode | Phone Number | | Organization | | | | + + + + + | [facility] | [address] | [place] [address] | | + + + + + POCT glucose (02/23/2018 4:22 PM) + + + + + | Component | Value | Ref Range | Performed At | + + + + + | GLUCOSE,POC SCREEN | 128 (H)Comment: Testing | 65 - 99 mg/dL | [facility] | | | performed at [facility];[address] | | | | | [address];[place] | | | | | [address] | | | + + + + + + + + + + | Performing | Address | City/State/Zipcode | Phone Number | | Organization | | | | + + + + + | [facility] | [address] | [place] [address] | | + + + + + [...] [place] | | | | | [address] | | | + + + + + + + | Specimen | + + | Blood | + + + + + + + | Performing | Address | City/State/Zipcode | Phone Number | | Organization | | | | + + + + + | [facility] | [address] | [place] [address] | [phone] | | LABORATORY | [address] | | | + + + + + Type and Screen (Blood Bank) (02/23/2018 4:09 PM) + + + + + | Component | Value | Ref Range | Performed At | + + + + + | ABO/RH(D) | A POSITIVE | | [facility] | + + + + + | ANTIBODY SCREEN | NEGATIVE | | [facility] | + + + + + | ARM BAND NUMBER | [id number] | | [facility] | | | performed at [facility] | | | | | [address];[place] | | | | | [address] | | | + + + + + + + | Specimen | + + | Blood | + + + + + + + | Performing | Address | City/State/Zipcode | Phone Number | | Organization | | | | + + + + + | [facility] | [address] | [place] [address] | | + + + + + POCT glucose (02/23/2018 12:17 PM) + + + + + | Component | Value | Ref Range | Performed At | + + + + + | GLUCOSE,POC SCREEN | 138 (H)Comment: Testing | 65 - 99 mg/dL | [facility] | | | performed at [facility];[address] | | | | | [address];[place] | | | | | [address] | | | + + + + + + + + + + | Performing | Address | City/State/Zipcode | Phone Number | | Organization | | | | + + + + + | [facility] | [address] | [place] [address] | | + + + + + Vancomycin, trough (02/23/2018 8:21 AM) + + + + + | Component | Value | Ref Range | Performed At | + + + + + | VANCOMYCIN,TROUGH | 16.6Comment: 15 to 20 | 10 - 20 ug/mL | [facility] | | | ug/mL for meningitis, | | | | | osteomyelitis, | | | | | endocarditis, sepsis, or | | | | | healthcare associated | | | | | pneumonia, or an MODESTA | | | | | equal to or greater than | | | | | 1.0 ug/mLTesting | | | | | performed at [facility] | | | | | [address];[place], [place] | | | | | [address] | | | + + + + + + + | Specimen | + + | Blood | + + + + + + + | Performing | Address | City/State/Zipcode | Phone Number | | Organization | | | | + + + + + | [facility] | [address] | [place] [address] | | + + + + + POCT glucose (02/23/2018 5:33 AM) + + + + + | Component | Value | Ref Range | Performed At | + + + + + | GLUCOSE,POC SCREEN | 163 (H)Comment: Testing | 65 - 99 mg/dL | [facility] | | | performed at [facility];[address] | | | | | [address];[place] | | | | | [address] | | | + + + + + + + + + + | Performing | Address | City/State/Zipcode | Phone Number | | Organization | | | | + + + + + | [facility] | [address] | [place] [address] | | + + + + + APTT (02/23/2018 12:25 AM) + + + + + | Component | Value | Ref Range | Performed At | + + + + + | APTT | 40 (H)Comment: Testing | 23 - 32 seconds | [facility] | | | performed at [facility];[address] | | | | | [address];[place] | | | | | [address] | | | + + + + + + + | Specimen | + + | Blood | + + + + + + + | Performing | Address | City/State/Zipcode | Phone Number | | Organization | | | | + + + + + | [facility] | [address] | [place] [address] | | + + + + + POCT glucose (02/22/2018 9:39 PM) + + + + + | Component | Value | Ref Range | Performed At | + + + + + | GLUCOSE,POC SCREEN | 95Comment: Testing | 65 - 99 mg/dL | [facility] | | | performed at [facility];[address] | | | | | [address];[place] | | | | | [address] | | | + + + + + + + + + + | Performing | Address | City/State/Zipcode | Phone Number | | Organization | | | | + + + + + | [facility] | [address] | [place] [address] | | + + + + + [...] | + + + + + | [facility] | [address] | [place] [address] | | + + + + + IR angioplasty tiboperoneal additional vessel (02/22/2018 8:55 PM) + + + | Narrative | Performed At | + + + | DATE OF PROCEDURE: 02/22/2018 SURGEON: Johan Mueller MD | [facility] | | PREOPERATIVE DIAGNOSIS: 1) Right leg [...] was brought to | | | the laborer bituminous paving and placed on supine position. Moderate sedation [...] DETAIL: The patient was brought to the laborer bituminous paving and placed on | | supine position. [...] [facility] | [address] | [place] [address] | | + + + + + [...] was brought to | | | the laborer bituminous paving and placed on supine position. Moderate sedation [...] DETAIL: The patient was brought to the laborer bituminous paving and placed on | | supine position. [...] [facility] | [address] | [place] [address] | | + + + + + [...] was brought to | | | the laborer bituminous paving and placed on supine position. Moderate sedation [...] DETAIL: The patient was brought to the laborer bituminous paving and placed on | | supine position. [...] [facility] | [address] | [place] [address] | | + + + + + IR angiogram extremity right (02/22/2018 8:55 PM) + + + | Narrative | Performed At | + + + | DATE OF PROCEDURE: 02/22/2018 SURGEON: Johan Mueller MD | [facility] | | PREOPERATIVE DIAGNOSIS: 1) Right leg [...] was brought to | | | the laborer bituminous paving and placed on supine position. Moderate sedation [...] DETAIL: The patient was brought to the laborer bituminous paving and placed on | | supine position. [...] | [address] | [place] [address] | | + + + + + POC ACT, arterial (02/22/2018 8:00 PM) + + + + + | Component | Value | Ref Range | Performed At | + + + + + | POC ACT | 241 (H)Comment: Testing | 74 - 137 seconds | [facility] | | | performed at [facility];[address] | | | | | [address];[place] | | | | | [address] | | | + + + + + + + + + + | Performing | Address | City/State/Zipcode | Phone Number | | Organization | | | | + + + + + | [facility] | [address] | [place] [address] | | + + + + + POCT glucose (02/22/2018 5:00 PM) + + + + + | Component | Value | Ref Range | Performed At | + + + + + | GLUCOSE,POC SCREEN | 105 (H)Comment: Testing | 65 - 99 mg/dL | [facility] | | | performed at [facility];[address] | | | | | [address];[place] | | | | | [address] | | | + + + + + + + + + + | Performing | Address | City/State/Zipcode | Phone Number | | Organization | | | | + + + + + | [facility] | [address] | [place] [address] | | + + + + + POCT glucose (02/22/2018 3:16 PM) + + + + + | Component | Value | Ref Range | Performed At | + + + + + | GLUCOSE,POC SCREEN | 110 (H)Comment: Testing | 65 - 99 mg/dL | [facility] | | | performed at [facility];[address] | | | | | [address];[place] | | | | | [address] | | | + + + + + + + + + + | Performing | Address | City/State/Zipcode | Phone Number | | Organization | | | | + + + + + | [facility] | [address] | [place] [address] | | + + + + + POCT glucose (02/22/2018 1:14 PM) + + + + + | Component | Value | Ref Range | Performed At | + + + + + | GLUCOSE,POC SCREEN | 76Comment: Testing | 65 - 99 mg/dL | [facility] | | | performed at [facility];[address] | | | | | [facility];[place] | | | | | [address] | | | + + + + + + + + + + | Performing | Address | City/State/Zipcode | Phone Number | | Organization | | | | + + + + + | [facility] | [address] | [place] [address] | | + + + + + [...] | + + + + + | [facility] | [address] | [place] [address] | | + + + + + POCT glucose (02/22/2018 11:40 AM) + + + + + | Component | Value | Ref Range | Performed At | + + + + + | GLUCOSE,POC SCREEN | 73Comment: Testing | 65 - 99 mg/dL | [facility] | | | performed at [facility];[address] | | | | | [address];[place] | | | | | [address] | | | + + + + + + + + + + | Performing | Address | City/State/Zipcode | Phone Number | | Organization | | | | + + + + + | [facility] | [address] | [place] [address] | | + + + + + aPTT - Q6 starting in 6 hours x 2 (02/22/2018 11:20 AM) + + + + + | Component | Value | Ref Range | Performed At | + + + + + | APTT | 65 (H)Comment: Testing | 23 - 32 seconds | [facility] | | | performed at [facility];[address] | | | | | [address];[place] | | | | | [address] | | | + + + + + + + | Specimen | + + | Blood | + + + + + + + | Performing | Address | City/State/Zipcode | Phone Number | | Organization | | | | + + + + + | [facility] | [address] | [place] [address] | | + + + + + [...] | + + + + + | [facility] | [address] | [place] [address] | | + + + + + US lower extremty arterial right (02/22/2018 7:55 AM) + + + | Impressions | Performed At | + + + | 1. The proximal CONTINUOUS IMPROVEMENT COORDINATOR appears occluded with distal reconstitution | [facility] [...] systolic velocities (cm/s) / Doppler Waveform: Right: SCORER SINGLE | | | Prox: 124.8 and triphasic DFA Prox: 69.5 and triphasic SFA Prox: | | | 107.7 and triphasic SFA Mid:90.9 and triphasic SFA Distal: 78 and | | | triphasic POP Mid: 65.6 and triphasic Tibioperoneal trunk: 45 and | | | biphasic JOSE ANGEL Prox: 171.1 and triphasic JOSE ANGEL Distal: 107 and | | | monophasic CONTINUOUS IMPROVEMENT COORDINATOR Prox: 0 and absent CONTINUOUS IMPROVEMENT COORDINATOR Distal: 28.3 and monophasic | | | OSMAR Prox: 31 and biphasic Peroneal mid: Appears occluded. OSMAR | | | Distal: 88 and monophasic Dorsalis pedis artery: 48 and monophasic | | | Atherosclerosis in arteries of right lower extremity vascular | | | calcifications. The proximal CONTINUOUS IMPROVEMENT COORDINATOR appears occluded with distal | | | [...] systolic velocities | | (cm/s) / Doppler Waveform:Right:SCORER SINGLE Prox: 124.8 and triphasicDFA Prox: 69.5 and [...] | | lower extremity vascular calcifications.The proximal CONTINUOUS IMPROVEMENT COORDINATOR appears occluded with distal | | reconstitution via collaterals.Mid peroneal artery appears occluded with distal | | reconstitution via collaterals.Probable hemodynamically significant stenosis in proximal | | JOSE ANGEL.IMPRESSION:1. The proximal CONTINUOUS IMPROVEMENT COORDINATOR appears occluded with distal reconstitution via | [...] |JOSE ANGEL Distal: 107 and monophasic | |CONTINUOUS IMPROVEMENT COORDINATOR Prox: 0 and absent | |CONTINUOUS IMPROVEMENT COORDINATOR Distal: 28.3 and monophasic | |OSMAR Prox: 31 and biphasic | |Peroneal mid: Appears occluded. | |OSMAR Distal: 88 and monophasic | |Dorsalis pedis artery: 48 and monophasic | | | |Atherosclerosis in arteries of right lower extremity vascular calcifications. | | | |The proximal CONTINUOUS IMPROVEMENT COORDINATOR appears occluded with distal reconstitution via collaterals. | |Mid peroneal artery appears occluded with distal reconstitution via collaterals. | |Probable hemodynamically significant stenosis in proximal JOSE ANGEL. | | | |IMPRESSION: | |1. The proximal CONTINUOUS IMPROVEMENT COORDINATOR appears occluded with distal reconstitution via collaterals. [...] [facility]AN[facility] | [address] | [place] [address] | | + + + + + [...] at | | LABORATORY | | | [facility], [address] | | | | | [place] | | | | | [address] | | | + + + + + + + + + + | Performing | Address | City/State/Zipcode | Phone Number | | Organization | | | | + + + + + | [facility] | [address] | [place] [address] | [phone] | | LABORATORY | Blvd. | | [...] + + + | [facility] | [address] | [place] [address] | [phone] | | LABORATORY | Blvd. | | [...] + + + + + | Specific Bradford, UA | 1.012 | 1.002 - 1.030 [...] | [facility] | | | performed at [facility], [address] | | LABORATORY | | | [address], | | | | | [place] [address] | | | + + + + + + + | Specimen | + + | Urine - Urine, Clean | | Catch | + + + + + + + | Performing | Address | City/State/Zipcode | Phone Number | | Organization | | | | + + + + + | [facility] | [address] | [place] [address] | [phone] | | LABORATORY | Blvd. | | | + + + + + POCT glucose (02/22/2018 4:06 AM) + + + + + | Component | Value | Ref Range | Performed At | + + + + + | GLUCOSE,POC SCREEN | 93Comment: Testing | 65 - 99 mg/dL | [facility] | | | performed at [facility];[address] | | [address];[place] | | | | | [address] | | | + + + + + + + + + + | Performing | Address | City/State/Zipcode | Phone Number | | Organization | | | | + + + + + | [facility] | [address] | [place] [address] | | + + + + + MRSA by PCR (02/22/2018 4:06 AM) + + + + + | Component | Value | Ref Range | Performed At | + + + + + | SOURCE | NARES(NOSE) | | [facility] | + + + + + | MRSA PCR | NEGATIVEComment: Testing | NEGATIVE | [facility] | | | performed at [facility];[address] | | | | | [address];[place], [place] | | | | | [address] | | | + + + + + + + | Specimen | + + | Nasopharyngeal - | | Nares(Nose) | + + + + + + + | Performing | Address | City/State/Zipcode | Phone Number | | Organization | | | | + + + + + | [facility] | [address] | [place] [address] | | + + + + + Zioni, direct (02/22/2018 3:30 AM) + + + + + | Component | Value | Ref Range | Performed At | + + + + + | BILI, DIRECT | 0.4 (H)Comment: Testing | 0.0 - 0.3 mg/dL | [facility] | | | performed at [facility], [address] | | LABORATORY | | | [address], | | | | | [place] [address] | | | + + + + + + + + + + | Performing | Address | City/State/Zipcode | Phone Number | | Organization | | | | + + + + + | [facility] | [address] | [place] [address] | [phone] | | LABORATORY | Blvd. | | [...] | | | | | performed at [facility];[address] | | | | | [address];[place] | | | | | [address] | | | + + + + + + + + + + | Performing | Address | City/State/Zipcode | Phone Number | | Organization | | | | + + + + + | [facility] | [address] | [place] [address] | | + + + + + Septic Lactic Acid (02/22/2018 3:30 AM) + + + + + | Component | Value | Ref Range | Performed At | + + + + + | LACTIC ACID | 1.2Comment: Testing | 0.4 - 2.0 mmol/L | [facility] | | | performed at [facility];[address] | | | | | [address];[place] | | | | | [address] | | | + + + + + + + + + + | Performing | Address | City/State/Zipcode | Phone Number | | Organization | | | | + + + + + | [facility] | [address] | [place] [address] | | + + + + + aPTT - Q6 starting in 6 hours x 2 (02/22/2018 3:30 AM) + + + + + | Component | Value | Ref Range | Performed At | + + + + + | APTT | 132 ()Comment: PTT | 23 - 32 seconds | [facility] | | | PHONED TO DANNIE SOOD | | | | | AT 0415 BY My eShoe BACK | | | | | RESULTS VERIFIEDTesting | | | | | performed at [facility] | | | | | [address];[place], [place] | | | | | [address] | | | + + + + + + + | Specimen | + + | Blood | + + + + + + + | Performing | Address | City/State/Zipcode | Phone Number | | Organization | | | | + + + + + | [facility] | [address] | [place] [address] | | + + + + + Glycohemoglobin A1C (02/22/2018 3:30 AM) + + + + + | Component | Value | Ref Range | Performed At | + + + + + | HEMOGLOBIN A1C | 7.9 (H)Comment: The | 4.0 - 6.0 % | [facility] | | | [facility] | | LABORATORY | | | [...] | | | | | performed at [facility], [address] | | | | | [facility], | | | | | [place] [address] | | | + + + + + + + | Specimen | + + | Blood | + + + + + + + | Performing | Address | City/State/Zipcode | Phone Number | | Organization | | | | + + + + + | [facility] | [address] | [place] [address] | [phone] | | LABORATORY | Blvd. | | [...] + | BUN/CREAT | 15 | | [facility] | | | | | LABORATORY | + + + + + | CALCIUM | 8.7 | 8.5 - 10.5 mg/dL | [facility] | | | | | LABORATORY | + + + + + | TOTAL PROTEIN | 6.8 | 6.3 - 8.2 g/dL | [facility] | | | | | LABORATORY | [...] performed at | | | | | [facility], [address] | | | | | [place], | | | | | [place] [address] | | | + + + + + + + | Specimen | + + | Blood | + + + + + + + | Performing | Address | City/State/Zipcode | Phone Number | | Organization | | | | + + + + + | [facility] | [address] | [place] [address] | [phone] | | LABORATORY | [address] | | | + + + + + Magnesium (02/22/2018 3:30 AM) + + + + + | Component | Value | Ref Range | Performed At | + + + + + | MAGNESIUM | 1.9Comment: Testing | 1.7 - 2.4 mg/dL | [facility] | | | performed at [facility], [address] | | LABORATORY | | | [address], | | | | | [place] [address] | | | + + + + + + + | Specimen | + + | Blood | + + + + + + + | Performing | Address | City/State/Zipcode | Phone Number | | Organization | | | | + + + + + | [facility] | [address] | [place] [address] | [phone] | | LABORATORY | Blvd. | | [...] | [facility] | | | performed at [facility], [address] | | LABORATORY | | | [address], | | | | | [place] [address] | | | + + + + + + + | Specimen | + + | Blood | + + + + + + + | Performing | Address | City/State/Zipcode | Phone Number | | Organization | | | | + + + + + | [facility] | [address] | [place] [address] | [phone] | | LABORATORY | Blvd[address] | | [...] | + + + + + | [facility] | [address] | [place] [address] | [phone] | | LABORATORY | Blvd. | | | + + + + + | [facility] | [address] | [place] [address] | | + + + + + Cardiac Panel (02/21/2018 9:00 PM) + + + + + | Component | Value | Ref Range | Performed At | + + + + + | WBC | 16.21 (H) | 3.80 - 11.00 K/uL | [facility] | + + + + + | RBC | 4.73 | 4.20 - 5.70 M/uL | [facility] | + + + + + | HGB | 14.6 | 13.2 - 17.0 g/dL | [facility] | + + + + + | HCT | 41.4 | 39.0 - 50.0 % | [facility] | + + + + + | MCV | 87.6 | 80.0 - 100.0 fl | [facility] | + + + + + | MCH | 30.9 | 27.0 - 34.0 pg | [facility] | + + + + + | MCHC | 35.3 | 32.0 - 35.5 g/dL | [facility] | + + + + + | RDW SD | 39.8 | 37 - 53 fl | [facility] | + + + + + | PLT | 261 | 150 - 400 K/uL | [facility] | + + + + + | MPV | 7.3 | fl | [facility] | + + + + + [...] 0.03 | 0.00 - 0.10 K/uL | [facility] | + + + + + | MORPHOLOGY | RBC AND PLT MORPHOLOGY | | [facility] | | | APPEAR NORMAL | | | + + + + + | Platelet Estimate | ADEQUATE | | [facility] | + + + + + | Diff Comment | SLIDE SCANNED, AGREES | | [facility] | | | WITH AUTOMATED RESULTS. | | | + + + + + | SODIUM | 134 (L) | 135 - 145 mmol/L | [facility] | + + + + + | POTASSIUM | 4.1 | 3.5 - 4.9 mmol/L | [facility] | + + + + + | CHLORIDE | 97 (L) | 99 - 109 mmol/L | [facility] | + + + + + [...] 7.9 | 6.3 - 8.2 g/dL | [facility] | + + + + + | Albumin | 2.8 (L) | 3.6 - 5.0 g/dL | [facility] | + + + + + | GLOBULIN | 5.1 (H) | 1.3 - 4.9 g/dL | [facility] | + + + + + | A/G | 0.6 (L) | 1.0 - 2.4 | [facility] | + + + + + | TBIL | 2.0 (H) | 0.1 - 1.5 mg/dL | [facility] | + + + + + | ALK PHOS | 93 | 35 - 115 U/L | [facility] | + + + + + | AST | 30 | 10 - 45 U/L | [facility] | + + + + + | ALT | 28 | 10 - 65 U/L | [facility] | + + + + + | EGFR | >60Comment: GFR <60: | >60 mL/min/1.73m2 | [facility] | | | CHRONIC KIDNEY DISEASE, [...] (L) | 55 - 400 U/L | [facility] | + + + + + | INR | 1.1Comment: REFERENCE | | [facility] | | | RANGE:0.9 - | [...] (H) | 23 - 32 seconds | [facility] | + + + + + | MMB | <1.0 | 0.5 - 3.6 ng/mL | [facility] | + + + + + | CK-MB Index | UNABLE TO | | [facility] | | | CALCULATEComment: | | | | | Testing performed at | | | | | [facility];[address] | | [address];[place] [address] | | | + + + + + + + + + + | Performing | Address | City/State/Zipcode | Phone Number | | Organization | | | | + + + + + | [facility] | [address] | [place] [address] | | + + + + + [...] | + + + + + | [facility] | [address] | [place] [address] | [phone] | | LABORATORY | [address] | | | + + + + + | [facility] | [address] | [place] [address] | | + + + + + Septic Lactic Acid (02/21/2018 9:00 PM) + + + + + | Component | Value | Ref Range | Performed At | + + + + + | LACTIC ACID | 1.9Comment: Testing | 0.4 - 2.0 mmol/L | [facility] | | | performed at [facility];[address] | | | | | [address];[place] | | | | | [address] | | | + + + + + + + + + + | Performing | Address | City/State/Zipcode | Phone Number | | Organization | | | | + + + + + | [facility] | [address] | [place] [address] | | + + + + + [...] | | | | | | Starting [facility] 02/24/18 at 0031 | | | [...] | | | | | | Starting [facility] 02/24/18 at 0031 | | | [...] | | | | | Constipation, Starting [facility] | | | | | | | [...]
--- OUTSIDE RECORDS SUMMARY | ~2018-04-10 | XMS | Encounter Summary ---
Demographics + + + | Address | [address] | | | [place] [address] | + + + | Home Phone | | + + + | Preferred Language | Unknown | + + + | Marital Status | Single | + + + | Christianity Affiliation | Unknown | + + + | Race | Unknown | + + + | Ethnic Group | Unknown | + + + Author + + + | Author | [facility] [employer] | + + + | Organization | [facility] [address] [employer] | + + + | Address | Unknown | + + + | Phone | Unavailable | + + + Support + + +---------+ + | Name | Relationship | Address | Phone | + + +---------+ + | Megan Walker | ECON | Unknown | | + + +---------+ + Care Team Providers + +------+ + | Care Health Manager Name | Role | Phone | + +------+ + | Nicholas Claire MD | PCP | | + +------+ + Encounter Details +--------+ + + + + | Date | Type | Department | Care Team | Description | +--------+ + + + + | 02/22/ | Procedure | [facility] | | | | 2017 | [facility] | [address] | | | | | | Floor [facility] | | | | | | [address] | | | | | | [place] [address] | | | | | | [phone] | | | +--------+ + + + [...] [place] | | | | | | [address] | | | | | | | | +--------+---------+ + + + as of this encounter Visit Diagnoses Not on filein this encounter"
--- OUTSIDE RECORDS SUMMARY | ~2018-04-10 | XMS | Encounter Summary ---
Demographics + + + | Address | [address] | | | [place] [address] | + + + | Home Phone [...] + + + | Author | [facility] [employer] | + + + | Organization | [facility] | + + + | Address | Unknown | + + + | Phone | Unavailable | + + + Support + + +---------+ + | Name | Relationship | Address | Phone | + + +---------+ + | Megan Walker | ECON | Unknown | | + + +---------+ + Care Team Providers + +------+ + | Care Quality Assurance Project Manager Name | Role | Phone | [...] | | | | vascular | | [place], [place] | | | | | disease) | | [address] Phone: | | | | | ([facility]) | | [phone] | | | | | Amputation | | Fax: | | | | | stump | | [phone] | | | | | infection | [...] + + | 03/30/ | Hospital | [facility] | [address] | Amputation stump | | 2018 - | Encounter | Medical Center | Radha DO [address] | infection (HCC) | | | | Surgical [address] | [address] [place], [place] | (Primary Dx); PVD | | 04/04/ | | Blvd [place], [place] | [address] | (peripheral vascular | | 2018 | | [address] | Kade Gomez MD | disease) (HCC) | | | | | [address] | | | | | | [place] [address] | | | | | | [phone] | | | | | | | | | | | | Caroline Yuan MD | | | | | | [address] | | | | | | [place] [address] | | | | | | [phone] | | | | | | | [...] t mow the lawn, use a vacuum hat cleaner, or do other strenuous activities until [...] Increased redness or drainage of the incision Mwxzp681.5F (38.5C) or higher Trouble urinating Nausea or vomiting [id number] [employer] [place] [address], [place] [address]. All righ ts reserved. This information is [...] note may be different from the original. [facility] Service: Vascular Surgery Progress Note Hospital Day: LOS: 4 days Post-Op Day: 3 Days Post-Op SUBJECTIVE Patient Summary: Asrenio Daniel a 57 y.o.malemalepatient withhistory of hypertension, [...] atherectomy and balloon angioplasty on 10/20/2017at the [facility] Plaster Helper. His bilateral heel wounds were healed. [...] The patient was see n by his staff air tactical officer Dr. Wakler and was prescribed oral antibiotics. He eventually [...] distal leg. 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 Reconciliation Machine Operator Dr. Garcia consulted, he discussed with patient [...] ma y be different from the original. [facility] Service: Hospitalist Progress Note Hospital Day: LOS: [...] stump requiring ruiz rgical intervention. [facility] [place] [facility], when his right foot amputation [...] Patient s/p BKA on 03/31/[address] Rashdi, he received 3 days of Unasyn which [...] may be different f rom the original. [facility] Service: Vascular Surgery Progress Note Hospital Day: [...] atherectomy and balloon angioplasty on 10/20/2017at the [facility] Cat h Lab. His bilateral heel wounds [...] The patient was see n by his staff air tactical officer Dr. Walker and was prescribed oral antibiotics. [...] distal leg. 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 Reconciliation Machine Operator Dr. Garcia consulted, he discussed with patient [...] and infection of his right lower extremity, [facility] ular surgery was consulted to evaluate [...] may be di fferent from the original. [facility] Service: Hospitalist Progress Note Hospital Day: LOS: [...] cted stump requiring surgical intervention. [facility] [place] [facility], when his right foot amputation [...] note may be different from the original. [facility] Service: Hospitalist Progress Note Hospital Day: LOS: 2 days Post-Op Day: 1 Day Post-Op SUBJECTIVE Patient Summary: The patient is a 57 y.o.malewith significant past medical history of HTN, HLD, diabetes mellitus type II, history of PVD who recently had right popliteal to PTAbypass and right transmetatarsal amputation on 02/25/18. He wasdischarged on 03/15. [facility] [place] [facility], when his right foot a [...] Estimated Energy Needs Total Energy Estimated Needs 5813-5257 kcal Method for Estimating Needs 25-30 kcal/kg [...] note may be different from the original. [facility] Service: Hospitalist Progress Note Hospital Day: LOS: 1 day SUBJECTIVE Patient Summary: The patient is a 57 y.o. male with significant past medical history of HTN, HLD, diabetes m ellitus type II, history of PVD who recently had right popliteal to RUSTIC TERRAZZO SETTER bypass and right tra nsmetatarsal amputation on 02/25/18. He was discharged on 03/15. He was in an assisted care facility in [place] for rehabilitation, when his right foot am [...] QTC Calculation (Bezet) 425 ms Calculated P [place] 9 degrees Calculated R [place] 53 degrees Calculated T [place] 53 degrees Diagnosis Normal sinus rhythm Normal ECG No previous ECGs available This ECG contains Unconfirmed Interpretation Statements. See ED Record for Physician Inter pretation. Confirmed by MUSE READ ONLY, -COMPUTER ([id number]), manuscript editor Nahid John ([id number]) on 03/31/2018 3:26:17 [...] POSITIVE ANTIBODY SCREEN NEGATIVE ARM BAND NUMBER [id number] Testing performed at [facility];[address] [place] [address];[place] [address] CBC w/auto diff (reflex to manual) Collection [...] Continue abx, management per ID. Melly Baron, [facility] - 03/30/2018 8:52 PM PDTRenal Dosing Monitoring: [...] | | | | | [place] | | | | | | [address] | | | | | | | [...] Testing | 65 - 99 mg/dL | [facility] | | | performed at [facility];[address] | | | | | [address];[place] | | | | | [address] | | | + + + + + + + + + + | Performing | Address | City/State/Zipcode | Phone Number | | Organization | | | | + + + + + | [facility] | [address] | [place] [address] | | + + + + + POCT glucose (04/04/2018 5:59 AM) + + + + + | Component | Value | Ref Range | Performed At | + + + + + | GLUCOSE,POC SCREEN | 127 (H)Comment: Testing | 65 - 99 mg/dL | [facility] | | | performed at [facility];[address] | | | | | [address];[place] | | | | | [address] | | | + + + + + + + + + + | Performing | Address | City/State/Zipcode | Phone Number | | Organization | | | | + + + + + | [facility] | [address] | [place] [address] | | + + + + + [...] | | | | | [place] [address] | | | + + + + + + + | Specimen | + + | Blood | + + + + + + + | Performing | Address | City/State/Zipcode | Phone Number | | Organization | | | | + + + + + | [facility] | [address] | [place] [address] | [phone] | | LABORATORY | [address] | | | + + + + + POCT glucose (04/03/2018 9:30 PM) + + + + + | Component | Value | Ref Range | Performed At | + + + + + | GLUCOSE,POC SCREEN | 146 (H)Comment: Testing | 65 - 99 mg/dL | [facility] | | | performed at [facility];[address] | | | | | [address];[place] | | | | | [address] | | | + + + + + + + + + + | Performing | Address | City/State/Zipcode | Phone Number | | Organization | | | | + + + + + | [facility] | [address] | [place] [address] | | + + + + + POCT glucose (04/03/2018 4:27 PM) + + + + + | Component | Value | Ref Range | Performed At | + + + + + | GLUCOSE,POC SCREEN | 165 (H)Comment: Testing | 65 - 99 mg/dL | [facility] | | | performed at [facility];[address] | | | | | [address];[place] | | | | | [address] | | | + + + + + + + + + + | Performing | Address | City/State/Zipcode | Phone Number | | Organization | | | | + + + + + | [facility] | [address] | [place] [address] | | + + + + + POCT glucose (04/03/2018 11:57 AM) + + + + + | Component | Value | Ref Range | Performed At | + + + + + | GLUCOSE,POC SCREEN | 113 (H)Comment: Testing | 65 - 99 mg/dL | [facility] | | | performed at [facility];[address] | | | | [address];[place] | | | | | [address] | | | + + + + + + + + + + | Performing | Address | City/State/Zipcode | Phone Number | | Organization | | | | + + + + + | [facility] | [address] | [place] [address] | | + + + + + POCT glucose (04/03/2018 5:33 AM) + + + + + | Component | Value | Ref Range | Performed At | + + + + + | GLUCOSE,POC SCREEN | 101 (H)Comment: Testing | 65 - 99 mg/dL | [facility] | | | performed at [facility];[address] | | | | | [address];[place] | | | | | [address] | | | + + + + + + + + + + | Performing | Address | City/State/Zipcode | Phone Number | | Organization | | | | + + + + + | [facility] | [address] | [place] [address] | | + + + + [...] | [facility] | | | performed at [facility], [address] | | LABORATORY | | | [address], | | | | | [place] [address] | | | + + + + + + + | Specimen | + + | Blood | + + + + + + + | Performing | Address | City/State/Zipcode | Phone Number | | Organization | | | | + + + + + | [facility] | [address] | [place] [address] | [phone] | | LABORATORY | [address] | | | + + + + + POCT glucose (04/02/2018 9:21 PM) + + + + + | Component | Value | Ref Range | Performed At | + + + + + | GLUCOSE,POC SCREEN | 139 (H)Comment: Testing | 65 - 99 mg/dL | [facility] | | | performed at [facility];[address] | | | | | [address];[place] | | | | | [address] | | | + + + + + + + + + + | Performing | Address | City/State/Zipcode | Phone Number | | Organization | | | | + + + + + | [facility] | [address] | [place] [address] | | + + + + + POCT glucose (04/02/2018 4:05 PM) + + + + + | Component | Value | Ref Range | Performed At | + + + + + | GLUCOSE,POC SCREEN | 139 (H)Comment: Testing | 65 - 99 mg/dL | [facility] | | | performed at [facility];[address] | | | | | [address];[place] | | | | | [address] | | | + + + + + + + + + + | Performing | Address | City/State/Zipcode | Phone Number | | Organization | | | | + + + + + | [facility] | [address] | [place] [address] | | + + + + + POCT glucose (04/02/2018 11:41 AM) + + + + + | Component | Value | Ref Range | Performed At | + + + + + | GLUCOSE,POC SCREEN | 130 (H)Comment: Testing | 65 - 99 mg/dL | [facility] | | | performed at [facility];[address] | | | | | [address];[place] | | | | | [address] | | | + + + + + + + + + + | Performing | Address | City/State/Zipcode | Phone Number | | Organization | | | | + + + + + | [facility] | [address] | [place] [address] | | + + + + + POCT glucose (04/02/2018 5:24 AM) + + + + + | Component | Value | Ref Range | Performed At | + + + + + | GLUCOSE,POC SCREEN | 138 (H)Comment: Testing | 65 - 99 mg/dL | [facility] | | | performed at [facility];[address] | | | | | [address];[place] | | | | | [address] | | | + + + + + + + + + + | Performing | Address | City/State/Zipcode | Phone Number | | Organization | | | | + + + + + | [facility] | [address] | [place] [address] | | + + + + + [...] the | | | | | MDRD IDNJ traceable | | | | | equation.Testing | | | | | performed at [facility], [address] | | | | | [facility], | | | | | [place] [address] | | | + + + + + + + | Specimen | + + | Blood | + + + + + + + | Performing | Address | City/State/Zipcode | Phone Number | | Organization | | | | + + + + + | [facility] | [address] | [place] [address] | [phone] | | LABORATORY | [address] | | [...] | [facility] | | | performed at [facility], [address] | | LABORATORY | | | [address], | | | | | [place] [address] | | | + + + + + + + | Specimen | + + | Blood | + + + + + + + | Performing | Address | City/State/Zipcode | Phone Number | | Organization | | | | + + + + + | [facility] | [address] | [place] [address] | [phone] | | LABORATORY | [address] | | | + + + + + POCT glucose (04/01/2018 9:45 PM) + + + + + | Component | Value | Ref Range | Performed At | + + + + + | GLUCOSE,POC SCREEN | 236 (H)Comment: Testing | 65 - 99 mg/dL | [facility] | | | performed at [facility];[address] | | | | | [address];[place], [place] | | | | | [address] | | | + + + + + + + + + + | Performing | Address | City/State/Zipcode | Phone Number | | Organization | | | | + + + + + | [facility] | [address] | [place] [address] | | + + + + + POCT glucose (04/01/2018 4:14 PM) + + + + + | Component | Value | Ref Range | Performed At | + + + + + | GLUCOSE,POC SCREEN | 174 (H)Comment: Testing | 65 - 99 mg/dL | [facility] | | | performed at [facility];[address] | | | | | [address];[place] | | | | | [address] | | | + + + + + + + + + + | Performing | Address | City/State/Zipcode | Phone Number | | Organization | | | | + + + + + | [facility] | [address] | [place] [address] | | + + + + + POCT glucose (04/01/2018 11:10 AM) + + + + + | Component | Value | Ref Range | Performed At | + + + + + | GLUCOSE,POC SCREEN | 247 (H)Comment: Testing | 65 - 99 mg/dL | [facility] | | | performed at [facility];[address] | | | | | [address];[place] | | | | | [address] | | | + + + + + + + + + + | Performing | Address | City/State/Zipcode | Phone Number | | Organization | | | | + + + + + | [facility] | [address] | [place] [address] | | + + + + + Protime-INR (04/01/2018 9:23 AM) + + + + + | Component | Value | Ref Range | Performed At | + + + + + | INR | 1.1Comment: REFERENCE | | [facility] | | | RANGE:0.9 - [...] | | | | | performed at [facility] | | | | | [address];[place], [place] | | | | | [address] | | | + + + + + + + | Specimen | + + | Blood | + + + + + + + | Performing | Address | City/State/Zipcode | Phone Number | | Organization | | | | + + + + + | [facility] | [address] | [place] [address] | | + + + + + POCT glucose (04/01/2018 5:52 AM) + + + + + | Component | Value | Ref Range | Performed At | + + + + + | GLUCOSE,POC SCREEN | 277 (H)Comment: Testing | 65 - 99 mg/dL | [facility] | | | performed at [facility];[address] | | | | | [address];[place] | | | | | [address] | | | + + + + + + + + + + | Performing | Address | City/State/Zipcode | Phone Number | | Organization | | | | + + + + + | [facility] | [address] | [place] [address] | | + + + + + [...] | | | | | performed at [facility], [address] | | | | | [facility], | | | | | [place] [address] | | | + + + + + + + | Specimen | + + | Blood | + + + + + + + | Performing | Address | City/State/Zipcode | Phone Number | | Organization | | | | + + + + + | [facility] | [address] | [place] [address] | [phone] | | LABORATORY | [address] | | [...] performed at | | | | | [facility], [address] [place] [address] | | | | | [place], [place] | | | | | [address] | | | + + + + + + + | Specimen | + + | Blood | + + + + + + + | Performing | Address | City/State/Zipcode | Phone Number | | Organization | | | | + + + + + | [facility] | [address] | [place] [address] | [phone] | | LABORATORY | [address]vd[address] | | | + + + + + Pathology histology - tissue (04/01/2018) + + | Specimen | + + | Tissue | + + + + + | Narrative | Performed At | + + + | SPECIMEN(S): A Rt. BELOW KNEE AMPUTATION SPECIMEN SOURCE: A. | [facility] | | Rt. BELOW KNEE AMPUTATION CLINICAL [...] Received fresh designated | | | "right cnnnj-zny-ckxn amputation" consists of a right jxcjd-nax-ouwe | | | amputated leg that is 29.5 cm from ngno-jm-ycqeumtzb margin and has a | | | [...] | surgical resection margin is grossly viable. [employer] sections | | | are submitted in [...] preparation was performed | | | by [employer], [facility], [address] [place] [address]., | | | [place] [address] (Medical Practitioners: Ha Couch M.D.; | | | [facility]#: [id number]). Diagnostician: Breann Melara MD Pathologist | | | Electronically Signed 04/04/2018 | | + + + + +---------+ + + | Performing | Address | City/State/[facility] | Phone Number | | Organization | | | | + +---------+ + + | [facility] | | | | + +---------+ + + POCT glucose (03/31/2018 9:45 PM) + + + + + | Component | Value | Ref Range | Performed At | + + + + + | GLUCOSE,POC SCREEN | 336 (H)Comment: Testing | 65 - 99 mg/dL | [facility] | | | performed at [facility];[address] | | | | | [address];[place] | | | | | [address] | | | + + + + + + + + + + | Performing | Address | City/State/Zipcode | Phone Number | | Organization | | | | + + + + + | [facility] | [address] | [place] [address] | | + + + + + POCT glucose (03/31/2018 2:41 PM) + + + + + | Component | Value | Ref Range | Performed At | + + + + + | GLUCOSE,POC SCREEN | 118 (H)Comment: Testing | 65 - 99 mg/dL | [facility] | | | performed at [facility];[address] | | | | | [address];[place] | | | | | [address] | | | + + + + + + + + + + | Performing | Address | City/State/Zipcode | Phone Number | | Organization | | | | + + + + + | [facility] | [address] | [facility] [address] | | + + + + + POCT glucose (03/31/2018 11:30 AM) + + + + + | Component | Value | Ref Range | Performed At | + + + + + | GLUCOSE,POC SCREEN | 94Comment: Testing | 65 - 99 mg/dL | [facility] | | | performed at [facility];[address] | | | | | [address];[place] | | | | | [address] | | | + + + + + + + + + + | Performing | Address | City/State/Zipcode | Phone Number | | Organization | | | | + + + + + | [facility] | [address] | [place] [address] | | + + + + + [...] | [facility] | | | performed at [facility], [address] | | LABORATORY | | | [address] [facility], | | | | | [place] [address] | | | + + + + + + + | Specimen | + + | Blood | + + + + + + + | Performing | Address | City/State/Zipcode | Phone Number | | Organization | | | | + + + + + | [facility] | [address] | [place] [address] | [phone] | | LABORATORY | [address]vd[address] | | | + + + + + Type and screen (03/31/2018 6:13 AM) + + + + + | Component | Value | Ref Range | Performed At | + + + + + | ABO/RH(D) | A POSITIVE | | [facility] | + + + + + | ANTIBODY SCREEN | NEGATIVE | | [facility] | + + + + + | ARM BAND NUMBER | [id number] | | [facility] | | | performed at [facility];[address] | | | | | [address];[place], [place] | | | | | [address] | | | + + + + + + + | Specimen | + + | Blood | + + + + + + + | Performing | Address | City/State/Zipcode | Phone Number | | Organization | | | | + + + + + | [facility] | [address] | [facility] [address] | | + + + + + Protime-INR (03/31/2018 6:13 AM) + + + + + | Component | Value | Ref Range | Performed At | + + + + + | INR | 1.7Comment: REFERENCE | | [facility] | | | RANGE:0.9 - [...] | | | | | performed at [facility];[address] | | | | | [address];[place] | | | | | [address] | | | + + + + + + + | Specimen | + + | Blood | + + + + + + + | Performing | Address | City/State/Zipcode | Phone Number | | Organization | | | | + + + + + | [facility] | [address] | [place] [address] | | + + + + + Magnesium (03/31/2018 6:13 AM) + + + + + | Component | Value | Ref Range | Performed At | + + + + + | MAGNESIUM | 2.1Comment: Testing | 1.7 - 2.4 mg/dL | [facility] | | | performed at [facility], [address] | | LABORATORY | | | [address], | | | | | [place] [address] | | | + + + + + + + | Specimen | + + | Blood | + + + + + + + | Performing | Address | City/State/Zipcode | Phone Number | | Organization | | | | + + + + + | [facility] | [address] | [place] [address] | [phone] | | LABORATORY | Blvd[address] | | [...] | | | | | performed at [facility], [address] | | | | | [facility], | | | | | [place] [address] | | | + + + + + + + | Specimen | + + | Blood | + + + + + + + | Performing | Address | City/State/Zipcode | Phone Number | | Organization | | | | + + + + + | [facility] | [address] | [place] [address] | [phone] | | LABORATORY | [address]vd[address] | | | + + + + + POCT glucose (03/31/2018 6:07 AM) + + + + + | Component | Value | Ref Range | Performed At | + + + + + | GLUCOSE,POC SCREEN | 89Comment: Testing | 65 - 99 mg/dL | [facility] | | | performed at [facility];[address] | | | | | [address];[place] | | | | | [address] | | | + + + + + + + + + + | Performing | Address | City/State/Zipcode | Phone Number | | Organization | | | | + + + + + | [facility] | [address] | [place] [address] | | + + + + + POCT glucose (03/30/2018 9:12 PM) + + + + + | Component | Value | Ref Range | Performed At | + + + + + | GLUCOSE,POC SCREEN | 77Comment: Testing | 65 - 99 mg/dL | [facility] | | | performed at [facility];[address] | | | | | [address];[place] | | | | | [address] | | | + + + + + + + + + + | Performing | Address | City/State/Zipcode | Phone Number | | Organization | | | | + + + + + | [facility] | [address] | [place] [address] | | + + + + + [...] + + + + | Calculated P [place] | 9 | degrees | [facility] | + + + + + | Calculated R [place] | 53 | degrees | [facility] | + + + + + | Calculated T [place] | 53 | degrees | [facility] | + + + + + | Diagnosis | Normal sinus | | [facility] | | | rhythmNormal ECGNo | [...] -COMPUTER (500), | | | | | manuscript editor Nahid John | | | | | Jesse (123) on 03/31/2018 | | | | | 3:26:17 AM | | | + + + + + + + + + + | Performing | Address | City/State/Zipcode | Phone Number | | Organization | | | | + + + + + | [facility] | [address] | [place] [address] | | + + + + + Blood Culture Set 2 (03/30/2018 6:16 PM) + + + + + | Component | Value | Ref Range | Performed At | + + + + + | Specimen Description | BLOOD | | [facility] | | | | | LABORATORY | + + + + + | SPECIAL REQUESTS | MARK | | [facility] | + + + + [...] | + + + + + | [facility] | [address] | [place] [address] | [phone] | | LABORATORY | Blvd[address] | | | + + + + + | [facility] | [address] | [place] [address] | | + + + + + MRSA by PCR (03/30/2018 5:39 PM) + + + + + | Component | Value | Ref Range | Performed At | + + + + + | SOURCE | NARES(NOSE) | | [facility] | + + + + + | MRSA PCR | NEGATIVEComment: Testing | NEGATIVE | [facility] | | | performed at [facility];[address] | | | | | [address];[place], [place] | | | | | [id number] | | | + + + + + + + | Specimen | + + | Nasopharyngeal - | | Nares(Nose) | + + + + + + + | Performing | Address | City/State/Zipcode | Phone Number | | Organization | | | | + + + + + | [facility] | [address] | [place] [address] | | + + + + + Troponin I (03/30/2018 5:12 PM) + + + + + | Component | Value | Ref Range | Performed At | + + + + + | TROPONIN I | <0.020Comment: 0.00 to | 0.00 - 0.10 ng/mL | [facility] | | | 0.10 CONSISTENT [...] | | | | [facility] [place] | | | | | Testing performed at | | | | | [facility];[address];[place] [address] | | | + + + + + + + + + + | Performing | Address | City/State/Zipcode | Phone Number | | Organization | | | | + + + + + | [facility] | [address] | [place] [address] | | + + + + + Sedimentation Rate (ESR) (03/30/2018 5:12 PM) + + + + + | Component | Value | Ref Range | Performed At | + + + + + | ESR | 67 (H)Comment: Testing | 0 - 20 mm/Hr | [facility] | | | performed at [facility];[address];[place] | | | | | [address] | | | + + + + + + + | Specimen | + + | Blood | + + + + + + + | Performing | Address | City/State/Zipcode | Phone Number | | Organization | | | | + + + + + | [facility] | [address] | [place] [address] | | + + + + + C-reactive protein (03/30/2018 5:12 PM) + + + + + | Component | Value | Ref Range | Performed At | + + + + + | CRP | 3.1 (H)Comment: Testing | <0.5 mg/dL | [facility] | | | performed at [facility];[address];[place], [place] | | | | | [address] | | | + + + + + + + | Specimen | + + | Blood | + + + + + + + | Performing | Address | City/State/Zipcode | Phone Number | | Organization | | | | + + + + + | [facility] | [address] | [place] [address] | | + + + + + aPTT (03/30/2018 5:12 PM) + + + + + | Component | Value | Ref Range | Performed At | + + + + + | APTT | 55 (H)Comment: Testing | 23 - 32 seconds | [facility] | | | performed at [facility];[address];[place] | | | | | [address] | | | + + + + + + + | Specimen | + + | Blood | + + + + + + + | Performing | Address | City/State/Zipcode | Phone Number | | Organization | | | | + + + + + | [facility] | [address] | [facility] [place] [address] | | + + + + + Protime (03/30/2018 5:12 PM) + + + + + | Component | Value | Ref Range | Performed At | + + + + + | INR | 3.0Comment: REFERENCE | | [facility] | | | RANGE:0.9 - [...] | | | | | performed at [facility];[address];[place] | | | | | [address] | | | + + + + + + + | Specimen | + + | Blood | + + + + + + + | Performing | Address | City/State/Zipcode | Phone Number | | Organization | | | | + + + + + | [facility] | [address] | [place] [address] | | + + + + + [...] 8.0 | 6.3 - 8.2 g/dL | [facility] | + + + + + | Albumin | 3.1 (L) | 3.6 - 5.0 g/dL | [facility] | + + + + + | GLOBULIN | 4.9 | 1.3 - 4.9 g/dL | [facility] | + + + + + | A/G | 0.6 (L) | 1.0 - 2.4 | [facility] | + + + + + | TBIL | 0.6 | 0.1 - 1.5 mg/dL | [facility] | + + + + + | ALK PHOS | 98 | 35 - 115 U/L | [facility] | + + + + + | AST | 19 | 10 - 45 U/L | [facility] | + + + + + | ALT | 29 | 10 - 65 U/L | [facility] | + + + + + | EGFR | >60Comment: GFR <60: | >60 mL/min/1.73m2 | [facility] | | | CHRONIC KIDNEY [...] | | | | | performed at [facility];[address];[place] | | | | | [address] | | | + + + + + + + | Specimen | + + | Blood | + + + + + + + | Performing | Address | City/State/Zipcode | Phone Number | | Organization | | | | + + + + + | [facility] | [address] | [place] [address] | | + + + + + CBC with differential (03/30/2018 5:12 PM) + + + + + | Component | Value | Ref Range | Performed At | + + + + + | WBC | 8.04 | 3.80 - 11.00 K/uL | [facility] | + + + + + | RBC | 4.38 | 4.20 - 5.70 M/uL | [facility] | + + + + + [...] 29.1 | 27.0 - 34.0 pg | [facility] | + + + + + | MCHC | 34.3 | 32.0 - 35.5 g/dL | [facility] | + + + + + | RDW SD | 42.4 | 37 - 53 fl | [facility] | + + + + + | PLT | 255 | 150 - 400 K/uL | [facility] | + + + + + | MPV | 7.2 | fl | [facility] | + + + + + | DIFF TYPE | AUTOMATED | | [facility] | + + + + + | NEUTROPHILS | 73.88 | % | [facility] | + + + + [...] 0.13 | 0.00 - 0.50 K/uL | [facility] | + + + + + | BASOPHILS ABS | 0.08Comment: Testing | 0.00 - 0.10 K/uL | [facility] | | | performed at [facility] | | | | | [address];[place], [place] | | | | | [address] | | | + + + + + + + | Specimen | + + | Blood | + + + + + + + | Performing | Address | City/State/Zipcode | Phone Number | | Organization | | | | + + + + + | [facility] | [address] | [place] [address] | | + + + + + [...] + + + | [facility] | [address] | [place] [address] | [phone] | | LABORATORY | [address] | | [...] PDT | | | | | Starting [facility] 03/31/18 at 1850 | | | | [...] | | | | | (4-6), Starting [facility] 03/31/18 at | | | | | [...] | | | | | | Starting [facility] 03/31/18 at 1402, PACU | | | [...] | | | | | (7-), Starting [facility] 03/31/18 at | | | | | [...] | | | | First dose on [facility] 03/31/18 at 0900 | | PDT | [...] | | | | | | Starting [facility] 03/31/18 at 1633 | | | | [...] | | | | | Constipation, Starting [facility] 03/31/18 | | | | | | [...] PRN, Nausea, Vomiting, | | | Starting [facility] 03/30/18 at 2006 | | + +---+ | | | + +---+ | ondansetron (ZOFRAN) injection | | | 4 mg 4 mg, Intravenous, Every 6 | | | Hours PRN, Nausea, Vomiting, | | | Starting [facility] 03/31/18 at 1633 | | + +---+ | | | + +---+ | ondansetron (ZOFRAN-ODT) | | | disintegrating tablet 4 mg 4 mg, | | | Oral, Every 6 Hours PRN, Nausea, | | | Vomiting, Starting [facility] 03/30/18 at | | | 2006 | | + +---+ | | | + +---+ | ondansetron (ZOFRAN-ODT) | | | disintegrating tablet 4 mg 4 mg, | | | Oral, Every 6 Hours PRN, Nausea, | | | Vomiting, Starting [facility] 03/31/18 at | | | 1633 | [...] 18:43 | | | | | Starting [facility] 03/31/18 at 1843, For | | PDT | | | | | 1 dose | | | | | | + +---------+ +---------+ +---+ +---+---+ | | | +---+---+ in this encounter
--- OUTSIDE RECORDS SUMMARY | ~2018-04-10 | XMS | Encounter Summary ---
Demographics + + + | Address | [address] | | | [place] [address] | + + + | Home Phone [...] + + + | Author | [facility] [email or web address] [facility] | + + + | Organization | [facility] [email or web address] [facility] | + + + | Address | Unknown | + + + | Phone | Unavailable | + + + Support + + +---------+ + | Name | Relationship | Address | Phone | + + +---------+ + | Megan Walker | ECON | Unknown | | + + +---------+ + Care Team Providers + +------+ + | Care Retail Associate Name | Role | Phone | + +------+ + | Nicholas Claire MD | PCP | | + +------+ + Encounter Details +--------+ + + + + | Date | Type | Department | Care Team | Description | +--------+ + + + + | 02/21/ | Procedure | [facility] | | | | 2017 | [facility] | [address] | | | | | | Floor [facility] | | | | | | [address] | | | | | | [place] [address] | | | | | | [phone] | | | +--------+ + + + [...] 04/18/ | Office | Vascular Surgery | hCris Duggan DNP | | | 2017 | Visit | | [address] | | | | | | [place] | | | | | | [address] | | | | | | | | +--------+---------+ + + + as of this encounter Visit Diagnoses Not on filein this encounter"
--- OUTSIDE RECORDS SUMMARY | ~2018-04-10 | XMS | Encounter Summary ---
Demographics + + + | Address | [address] | | | [place] [address] | + + + | Home Phone | | + + + | Preferred Language | Unknown | + + + | Marital Status | Single | + + + | Bahai Affiliation | Unknown | + + + | Race | Unknown | + + + | Ethnic Group | Unknown | + + + Author + + + | Author | [facility] | | | and [place] | + + + | Organization | [facility] | | | and [place] [...] Team Providers + +------+ + | Care Vegetable Loader Machine Operator Name | Role | Phone [...] | | | | | | | [place] | | | | | | [...] | | | [place], [place] | [place] [address] | | | | | [address] | [phone] | | | | | [phone] | | | +--------+---------+ + + + [...] + + | [facility] | [address] | [place] [address] | [phone] | | HOSPITAL LABORATORY | | | [...] cassette (A3), following | | | decalcification. NRT:[facility] PERFORMING LABORATORY: The technical | | | component was performed by [facility] | | | [place], [address] [address] (Medical | | | Director: Nicholas Escalante MD; CLIA# [id number]). Professional | | | interpretation [facility] performed [facility] | | | branch, [address] [facility], [place] [address] (Medical | | | Director: Nicholas Escalante MD; CLIA# [id number]). | | | Diagnostician: Aaliyah Romero MD [...]
--- OUTSIDE RECORDS SUMMARY | ~2018-04-10 | XMS | Encounter Summary ---
Demographics + + + | Address | [address] | | | [place] [address] | + + + | Home Phone | | + + + | Preferred Language | Unknown | + + + | Marital Status | Single | + + + | Quaker Affiliation | Unknown | + + + | Race | Unknown | + + + | Ethnic Group | Unknown | + + + Author + + + | Author | [facility] | + + + | Organization | [facility] | + + + | Address | Unknown | + + + | Phone | Unavailable | + + + Support + + +---------+ + | Name | Relationship | Address | Phone | + + +---------+ + | Megan Walker | ECON | Unknown | | + + +---------+ + Care Team Providers + +------+ + | Care Senior Customer Service Representative Name | Role | Phone | + [...] + + | 02/25/ | Surgery | [facility] | Amilcar Garcia DPM | FOREFOOT - | | 2017 | | [facility] | [address] | AMPUTATION | | | | Operating Room [address] | [address], | | | | [address] | [place] [address] | | | | | [place] [address] | [phone] | | | | | [phone] | | | +--------+---------+ + + + [...] may be different from the original. [facility] Service: Hospitalist Physician Discharge Summary Patient ID: [...] seen by our vascular surgery here at [facility] and by podiatry. Two days ago, there were concerns of an infected ulcer on the second toe, right foot, in the distal phalanx, for which he underwent surgical intervention and subsequent am putation on 02/19, two days ago. The patient refers that there were no surgical complicati ons, and when he went today for a followup with his manager study, when they took off the brownign ges there was clear discoloration of black [...] l toes. Patient underwent R. Popliteal to NOTCHING MACHINE OPERATOR bypass and reversed OSV by Dr. Mueller, [...] - TIBIAL; Surgeon: Johan Mueller MD; Location: [facility] OR; Service: Vascular; Laterality: Right; right popliteal to posterior tibial artery by pass with vein harvest FOOT AMPUTATION Right 02/25/2018 Procedure: FOREFOOT - AMPUTATION; Surgeon: Amilcar Garcia DPM; Location: [facility] OR; ervice: Podiatry; Laterality: Right; Right foot [...] Right Result Date: 02/22/2018 1. The proximal NOTCHING MACHINE OPERATOR appears occluded with distal reconstitution via collaterals. [...] up: Johan Mueller MD [address] [facility] [id number] Schedule an appointment as soon as possible for a visit in 2 weeks For wound re-check Nicholas Claire MD [address] [facility] [id number] In 3 days Medication List [...] Your Medications These medications were sent to [facility] [address] [place] [id number] [place] [address] [place] [address] acetaminophen 325 MG tablet amoxicillin-clavulanate 875-125 MG [...] may be different from t long original. [facility] Service: Vascular Surgery Progress Note Hospital Day: 7 ASSESSMENT & PLAN: 57 yo male patient s/p R popliteal to NOTCHING MACHINE OPERATOR bypass with reversed GSV. - Continue ASA/Plavix. [...] lower limb ischemia PVD (peripheral vascular disease) ([facility]) Essential hypertension DM (diabetes mellitus) ([facility]) Code Status: Full Code Juany Padilla MD 10:03 AM Juany Padilla MD - 02/28/2018 7:22 AM PDTFormatting of this note may be different from t long original. [facility] Service: Vascular Surgery Progress Note Hospital Day: 6 ASSESSMENT & PLAN: 57 yo male patient s/p R popliteal to NOTCHING MACHINE OPERATOR bypass with reversed GSV. - Continue ASA/Plavix. [...] lower limb ischemia PVD (peripheral vascular disease) ([facility]) Essential hypertension DM (diabetes mellitus) ([facility]) Code Status: Full Code Juany Padilla MD 7:22 AM Juany Padilla MD - 02/27/2018 7:58 AM PDTFormatting of this note may be different from t long original. [facility] Service: Vascular Surgery Progress Note Hospital Day: 5 ASSESSMENT & PLAN: 57 yo male patient s/p R popliteal to NOTCHING MACHINE OPERATOR bypass with reversed GSV. - Continue ASA/Plavix. [...] lower limb ischemia PVD (peripheral vascular disease) ([facility]) Essential hypertension DM (diabetes mellitus) ([facility]) Code Status: Full Code Juany Padilla MD 7:58 AM Jojo Dudley MD - 02/27/2018 5:15 AM PDTFormatting of this note may be different from the original. [facility] Service: Hospitalist Progress Note Hospital Day: LOS: 5 days SUBJECTIVE Patient Summary: From [facility] Dr. Peña 02/21/18 The patient is [...] seen by our vascular surgery here at [facility] and by podiatry. Two days ago, there were concerns of an infected ulcer on the second toe, right foot, in the distal phalanx, for which he underwent surgical intervention and subsequent amp utation on 02/19, two days ago. The patient refers that there were no surgical complication s, and when he went today for a followup with his manager study, when they took off the bandage s [...] Foot ulcer with necrosis of bone, right ([facility]) PVD (peripheral vascular disease) ([facility]) Essential hypertension DM (diabetes mellitus) ([facility]) ASSESSMENT & PLAN -Right foot [...] 02/23/18. POD#4 U/S shows 1. The proximal NOTCHING MACHINE OPERATOR appears occluded with distal reconstitution via collaterals. [...] may be different from t long original. [facility] Service: Vascular Surgery Progress Note Hospital Day: 4 ASSESSMENT & PLAN: 57 yo male patient s/p R popliteal to NOTCHING MACHINE OPERATOR bypass with reversed GSV. - Continue ASA/Plavix. [...] may be different from t long original. [facility] Service: Podiatry Progress Note Hospital Day: LOS: [...] bone, right (HCC) PVD (peripheral vascular disease) ([facility]) Essential hypertension DM (diabetes mellitus) ([facility]) ASSESSMENT & PLAN Gangrene Peripheral [...] may be differ ent from the original. [facility] Service: Hospitalist Progress Note Hospital Day: LOS: 4 days SUBJECTIVE Patient Summary: From [facility] Dr. Peña 02/21/18 The patient is [...] seen by our vascular surgery here at [facility] and by podiatry. Two days ago, there were concerns of an infected ulcer on the second toe, right foot, in the distal phalanx, for which he underwent surgical intervention and subsequent amp utation on 02/19, two days ago. The patient refers that there were no surgical complication s, and when he went today for a followup with his manager study, when they took off the bandage s [...] Foot ulcer with necrosis of bone, right ([facility]) PVD (peripheral vascular disease) ([facility]) Essential hypertension DM (diabetes mellitus) ([facility]) ASSESSMENT & PLAN -Right foot [...] 02/23/18. POD#3 U/S shows 1. The proximal NOTCHING MACHINE OPERATOR appears occluded with distal reconstitution via collaterals. [...] Dudley MD 02/26/2018 11:01 AM Joey Purcell [facility] - 02/25/2018 9:51 PM PDTNote ccl 111.5ml/min meds reviewed pharma cy will follow [facility] [id number] lopez [facility] - 02/25/2018 11:43 AM PDTClinical Pharmacy Note [...] may be different from the original. [facility] Service: Hospitalist Progress Note Hospital Day: LOS: 3 days SUBJECTIVE Patient Summary: From [facility] Dr. Peña 02/21/18 The patient is [...] seen by our vascular surgery here at [facility] and by podiatry. Two days ago, there were concerns of an infected ulcer on the second toe, right foot, in the distal phalanx, for which he underwent surgical intervention and subsequent amp utation on 02/19, two days ago. The patient refers that there were no surgical complication s, and when he went today for a followup with his manager study, when they took off the bandage s [...] sodium chloride (IV) 110 mL/hr at 02/24/18 0366 PRN Medications acetaminophen OR acetaminophen, dextrose, dextrose, [...] Foot ulcer with necrosis of bone, right ([facility]) PVD (peripheral vascular disease) ([facility]) Essential hypertension DM (diabetes mellitus) ([facility]) ASSESSMENT & PLAN -Right foot [...] 02/23/18. POD#2 U/S shows 1. The proximal NOTCHING MACHINE OPERATOR appears occluded with distal reconstitution via collaterals. [...] may be different from the original. [facility] Service: Vascular Surgery Progress Note Hospital Day: [...] bone, right (HCC) PVD (peripheral vascular disease) ([facility]) Essential hypertension DM (diabetes mellitus) ([facility]) ASSESSMENT & PLAN PLAN PER [...] may be different from the original. [facility] Service: Vascular Surgery Progress Note Hospital Day: [...] well perfused. He was ev aluated by manager study, Dr. Garcia who will proceed with transmetatarsal [...] Foot ulcer with necrosis of bone, right ([facility]) PVD (peripheral vascular disease) ([facility]) Essential hypertension DM (diabetes mellitus) ([facility]) ASSESSMENT & PLAN Critical limb [...] can be removed at [facility] if patient is discharged. Physical therapy and weight bearing status per Podiatry recom mendation. The patient will most likely be non weight bearing on his right foot until TMA co mpletely heals up. Encourage incentive spirometry breathing exercise. Continue pain manageme nt. Disposition: Continue medical management Code Status: Full Code Johan Mueller MD 02/25/2018Mojohn Puja Shaikh [facility] - 02/24/2018 12:13 PM PDTClinical Pharmacy Note: [...] may be different from t long original. [facility] Service: Podiatry Progress Note Hospital Day: LOS: [...] Foot ulcer with necrosis of bone, right ([facility]) PVD (peripheral vascular disease) ([facility]) Essential hypertension DM (diabetes mellitus) ([facility]) ASSESSMENT & PLAN Gangrene Peripheral [...] may be differ ent from the original. [facility] Service: Hospitalist Progress Note Hospital Day: LOS: [...] seen by our vascular surgery here at [facility] and by podiatry. Two days ago, there were concerns of an infected ulcer on the second toe, right foot, in the distal phalanx, for which he underwent surgical intervention and subsequent amp utation on 02/19, two days ago. The patient refers that there were no surgical complication s, and when he went today for a followup with his manager study, when they took off the bandage s [...] Foot ulcer with necrosis of bone, right ([facility]) PVD (peripheral vascular disease) ([facility]) Essential hypertension DM (diabetes mellitus) ([facility]) ASSESSMENT & PLAN -Right foot [...] 02/23/18. POD#1 U/S shows 1. The proximal NOTCHING MACHINE OPERATOR appears occluded with distal reconstitution via collaterals. [...] may be different from the original. [facility] Service: Hospitalist Progress Note Hospital Day: LOS: 1 day SUBJECTIVE Patient Summary: From [facility] Dr. Peña 02/21/18 The patient is [...] seen by our vascular surgery here at [facility] and by podiatry. Two days ago, there were concerns of an infected ulcer on the second toe, right foot, in the distal phalanx, for which he underwent surgical intervention and subsequent amp utation on 02/19, two days ago. The patient refers that there were no surgical complication s, and when he went today for a followup with his manager study, when they took off the bandage s [...] Foot ulcer with necrosis of bone, right ([facility]) PVD (peripheral vascular disease) ([facility]) Essential hypertension DM (diabetes mellitus) ([facility]) ASSESSMENT & PLAN -Right foot [...] on 02/22-. U/S shows 1. The proximal NOTCHING MACHINE OPERATOR appears occluded with distal reconstitution via collaterals. [...] may be different from the original. [facility] Service: Hospitalist Progress Note Hospital Day: LOS: 0 days SUBJECTIVE Patient Summary: From [facility] Dr. Peña 02/21/18 The patient is [...] seen by our vascular surgery here at [facility] and by podiatry. Two days ago, there were concerns of an infected ulcer on the second toe, right foot, in the distal phalanx, for which he underwent surgical intervention and subsequent amp utation on 02/19, two days ago. The patient refers that there were no surgical complication s, and when he went today for a followup with his manager study, when they took off the bandage s [...] Foot ulcer with necrosis of bone, right ([facility]) PVD (peripheral vascular disease) ([facility]) Essential hypertension DM (diabetes mellitus) ([facility]) ASSESSMENT & PLAN -Right foot [...] vascular interventions. U/S shows 1. The proximal NOTCHING MACHINE OPERATOR appears occluded with distal reconstitution via collaterals. [...] [place] | | | | | | [id number] | | | | | | | [...] | + +--------+ + + + | [facility] CARD PANEL W/O | STAT | 02/21/2018 [...] Testing | 65 - 99 mg/dL | [facility] | | | performed at [facility];[address] | | | | | [address];[place] | | | | | [address] | | | + + + + + + + + + + | Performing | Address | City/State/Zipcode | Phone Number | | Organization | | | | + + + + + | [facility] | [address] | [place] [address] | | + + + + + POCT glucose (03/01/2018 5:26 AM) + + + + + | Component | Value | Ref Range | Performed At | + + + + + | GLUCOSE,POC SCREEN | 147 (H)Comment: Testing | 65 - 99 mg/dL | [facility] | | | performed at [facility];[address] | | | | | [facility];[place], [place] | | | | | [address] | | | + + + + + + + + + + | Performing | Address | City/State/Zipcode | Phone Number | | Organization | | | | + + + + + | [facility] | [address] | [place] [address] | | + + + + + [...] | [facility] | | | performed at [facility], [address] | | LABORATORY | | | [address], | | | | | [place] [address] | | | + + + + + + + | Specimen | + + | Blood | + + + + + + + | Performing | Address | City/State/Zipcode | Phone Number | | Organization | | | | + + + + + | [facility] | [address] | [place] [address] | [phone] | | LABORATORY | [address] | | [...] 8.8 | 8.5 - 10.5 mg/dL | [facility] | | | | | LABORATORY | + + + + + | EGFR | >60Comment: GFR <60: | >60 mL/min/1.73m2 | [facility] | | | CHRONIC KIDNEY [...] | | | | | performed at [facility], [address] | | | | | [facility], | | | | | [place] [address] | | | + + + + + + + | Specimen | + + | Blood | + + + + + + + | Performing | Address | City/State/Zipcode | Phone Number | | Organization | | | | + + + + + | [facility] | [address] | [place] [address] | [phone] | | LABORATORY | [address] | | | + + + + + POCT glucose (02/28/2018 9:04 PM) + + + + + | Component | Value | Ref Range | Performed At | + + + + + | GLUCOSE,POC SCREEN | 253 (H)Comment: Testing | 65 - 99 mg/dL | [facility] | | | performed at [facility];[address] | | | | | [address];[place], [place] | | | | | [address] | | | + + + + + + + + + + | Performing | Address | City/State/Zipcode | Phone Number | | Organization | | | | + + + + + | [facility] | [address] | [facility] [place] [address] | | + + + + + POCT glucose (02/28/2018 5:08 PM) + + + + + | Component | Value | Ref Range | Performed At | + + + + + | GLUCOSE,POC SCREEN | 223 (H)Comment: Testing | 65 - 99 mg/dL | [facility] | | | performed at [facility];[address] | | | | | [address];[place] | | | | | [address] | | | + + + + + + + + + + | Performing | Address | City/State/Zipcode | Phone Number | | Organization | | | | + + + + + | [facility] | [address] | [place] [address] | | + + + + + POCT glucose (02/28/2018 12:01 PM) + + + + + | Component | Value | Ref Range | Performed At | + + + + + | GLUCOSE,POC SCREEN | 186 (H)Comment: Testing | 65 - 99 mg/dL | [facility] | | | performed at [facility];[address] | | | | | [address];[place] | | | | | [address] | | | + + + + + + + + + + | Performing | Address | City/State/Zipcode | Phone Number | | Organization | | | | + + + + + | [facility] | [address] | [place] [address] | | + + + + + [...] | [facility] | | | performed at [facility], [address] | | LABORATORY | | | [address], | | | | | [place] [address] | | | + + + + + + + | Specimen | + + | Blood | + + + + + + + | Performing | Address | City/State/Zipcode | Phone Number | | Organization | | | | + + + + + | [facility] | [address] | [place] [address] | [phone] | | LABORATORY | [address]vd[address] | | [...] | | | | | performed at [facility], [address] | | | | | [facility], | | | | | [place] [address] | | | + + + + + + + | Specimen | + + | Blood | + + + + + + + | Performing | Address | City/State/Zipcode | Phone Number | | Organization | | | | + + + + + | [facility] | [address] | [place] [address] | [phone] | | LABORATORY | [address] | | | + + + + + POCT glucose (02/28/2018 5:05 AM) + + + + + | Component | Value | Ref Range | Performed At | + + + + + | GLUCOSE,POC SCREEN | 178 (H)Comment: Testing | 65 - 99 mg/dL | [facility] | | | performed at [facility];[address] | | | | | [address];[place] | | | | | [address] | | | + + + + + + + + + + | Performing | Address | City/State/Zipcode | Phone Number | | Organization | | | | + + + + + | [facility] | [address] | [place] [address] | | + + + + + [...] | bone has a deep red discoloration. [employer] sections are | | | submitted in [...] | | | preparation was performed by [facility], [facility] | | | [address] [address] (Medical | | | Director: Ha Couch M.D.; [facility]#: [id number]). | | | Diagnostician: Ha Couch MD Pathologist Electronically | | | Signed 03/01/2018 | | + + + + +---------+ + + | Performing | Address | City/State/Zipcode | Phone Number | | Organization | | | | + +---------+ + + | [facility] | | | | + +---------+ + + POCT glucose (02/27/2018 8:29 PM) + + + + + | Component | Value | Ref Range | Performed At | + + + + + | GLUCOSE,POC SCREEN | 262 (H)Comment: Testing | 65 - 99 mg/dL | [facility] | | | performed at [facility];[address] | | | | | [facility];[place], [place] | | | | | [address] | | | + + + + + + + + + + | Performing | Address | City/State/Zipcode | Phone Number | | Organization | | | | + + + + + | [facility] | [address] | [place] [address] | | + + + + + POCT glucose (02/27/2018 4:19 PM) + + + + + | Component | Value | Ref Range | Performed At | + + + + + | GLUCOSE,POC SCREEN | 189 (H)Comment: Testing | 65 - 99 mg/dL | [facility] | | | performed at [facility];[address] | | | | [address];[place] | | | | | [address] | | | + + + + + + + + + + | Performing | Address | City/State/Zipcode | Phone Number | | Organization | | | | + + + + + | [facility] | [address] | [place] [address] | | + + + + + POCT glucose (02/27/2018 11:02 AM) + + + + + | Component | Value | Ref Range | Performed At | + + + + + | GLUCOSE,POC SCREEN | 200 (H)Comment: Testing | 65 - 99 mg/dL | [facility] | | | performed at [facility];[address] | | | | | [address];[place], [place] | | | | | [address] | | | + + + + + + + + + + | Performing | Address | City/State/Zipcode | Phone Number | | Organization | | | | + + + + + | [facility] | [address] | [facility] [place] [place] [address] | | + + + + + POCT glucose (02/27/2018 5:17 AM) + + + + + | Component | Value | Ref Range | Performed At | + + + + + | GLUCOSE,POC SCREEN | 159 (H)Comment: Testing | 65 - 99 mg/dL | [facility] | | | performed at [facility];[address] | | | | | [address];[place] | | | | | [address] | | | + + + + + + + + + + | Performing | Address | City/State/Zipcode | Phone Number | | Organization | | | | + + + + + | [facility] | [address] | [place] [address] | | + + + + + [...] | [facility] | | | performed at [facility], [address] | | LABORATORY | | | [address], | | | | | [place] [address] | | | + + + + + + + | Specimen | + + | Blood | + + + + + + + | Performing | Address | City/State/Zipcode | Phone Number | | Organization | | | | + + + + + | [facility] | [address] | [place] [address] | [phone] | | LABORATORY | [address] | | [...] (L) | 8.5 - 10.5 mg/dL | [facility] | | | | | LABORATORY | + + + + + | EGFR | >60Comment: GFR <60: | >60 mL/min/1.73m2 | [facility] | | | CHRONIC KIDNEY DISEASE, [...] the | | | | | MDRD IDWY traceable | | | | | equation.Testing | | | | | performed at [facility], [address] | | | | | [facility], | | | | | [place] [address] | | | + + + + + + + | Specimen | + + | Blood | + + + + + + + | Performing | Address | City/State/Zipcode | Phone Number | | Organization | | | | + + + + + | [facility] | [address] | [place] [address] | [phone] | | LABORATORY | [address] | | | + + + + + POCT glucose (02/26/2018 9:06 PM) + + + + + | Component | Value | Ref Range | Performed At | + + + + + | GLUCOSE,POC SCREEN | 213 (H)Comment: Testing | 65 - 99 mg/dL | [facility] | | | performed at [facility];[address] | | | | | [address];[place] | | | | | [address] | | | + + + + + + + + + + | Performing | Address | City/State/Zipcode | Phone Number | | Organization | | | | + + + + + | [facility] | [address] | [place] [address] | | + + + + + POCT glucose (02/26/2018 5:00 PM) + + + + + | Component | Value | Ref Range | Performed At | + + + + + | GLUCOSE,POC SCREEN | 229 (H)Comment: Testing | 65 - 99 mg/dL | [facility] | | | performed at [facility];[address] | | | | | [address];[place] | | | | | [address] | | | + + + + + + + + + + | Performing | Address | City/State/Zipcode | Phone Number | | Organization | | | | + + + + + | [facility] | [address] | [place] [address] | | + + + + + POCT glucose (02/26/2018 11:04 AM) + + + + + | Component | Value | Ref Range | Performed At | + + + + + | GLUCOSE,POC SCREEN | 292 (H)Comment: Testing | 65 - 99 mg/dL | [facility] | | | performed at [facility];[address] | | | | | [address];[place] | | | | | [address] | | | + + + + + + + + + + | Performing | Address | City/State/Zipcode | Phone Number | | Organization | | | | + + + + + | [facility] | [address] [place] | [place] [address] | | + + + + + POCT glucose (02/26/2018 5:18 AM) + + + + + | Component | Value | Ref Range | Performed At | + + + + + | GLUCOSE,POC SCREEN | 216 (H)Comment: Testing | 65 - 99 mg/dL | [facility] | | | performed at [facility];[address] | | | | | [address];[place] | | | | | [address] | | | + + + + + + + + + + | Performing | Address | City/State/Zipcode | Phone Number | | Organization | | | | + + + + + | [facility] | [address] | [place] [address] | | + + + + + [...] performed at | | | | | [facility], [address] [place] [address] | | | | | [place] | | | | | [address] | | | + + + + + + + | Specimen | + + | Blood | + + + + + + + | Performing | Address | City/State/Zipcode | Phone Number | | Organization | | | | + + + + + | [facility] | [address] | [place] [address] | [phone] | | LABORATORY | [address] | | [...] 0.9 | 0.70 - 1.30 mg/dL | [facility] | | | | | LABORATORY | + + + + + | BUN/CREAT | 18 | | [facility] | | | | | LABORATORY | + + + + + | CALCIUM | 8.7 | 8.5 - 10.5 mg/dL | [facility] | | | | | LABORATORY | + + + + + | EGFR | >60Comment: GFR <60: | >60 mL/min/1.73m2 | [facility] | | | CHRONIC KIDNEY DISEASE, | [...] | | | | | performed at [facility], [address] | | | | | [facility], | | | | | [place] [address] | | | + + + + + + + | Specimen | + + | Blood | + + + + + + + | Performing | Address | City/State/Zipcode | Phone Number | | Organization | | | | + + + + + | [facility] | [address] [facility] | [place] [address] | [phone] | | LABORATORY | [place] | | | + + + + + POCT glucose (02/25/2018 9:46 PM) + + + + + | Component | Value | Ref Range | Performed At | + + + + + | GLUCOSE,POC SCREEN | 190 (H)Comment: Testing | 65 - 99 mg/dL | [facility] | | | performed at [facility];[address] | | | | | [address];[place] | | | | | [address] | | | + + + + + + + + + + | Performing | Address | City/State/Zipcode | Phone Number | | Organization | | | | + + + + + | [facility] | [address] | [place] [address] | | + + + + + POCT glucose (02/25/2018 8:24 PM) + + + + + | Component | Value | Ref Range | Performed At | + + + + + | GLUCOSE,POC SCREEN | 207 (H)Comment: Testing | 65 - 99 mg/dL | [facility] | | | performed at [facility];[address] | | | | | [address];[place], [place] | | | | | [address] | | | + + + + + + + + + + | Performing | Address | City/State/Zipcode | Phone Number | | Organization | | | | + + + + + | [facility] | [address] | [place] [address] | | + + + + + POCT glucose (02/25/2018 5:22 PM) + + + + + | Component | Value | Ref Range | Performed At | + + + + + | GLUCOSE,POC SCREEN | 195 (H)Comment: Testing | 65 - 99 mg/dL | [facility] | | | performed at [facility];[address] | | | | | [address];[place] | | | | | [address] | | | + + + + + + + + + + | Performing | Address | City/State/Zipcode | Phone Number | | Organization | | | | + + + + + | [facility] | [address] | [place] [address] | | + + + + + POCT glucose (02/25/2018 4:55 PM) + + + + + | Component | Value | Ref Range | Performed At | + + + + + | GLUCOSE,POC SCREEN | 176 (H)Comment: Testing | 65 - 99 mg/dL | [facility] | | | performed at [facility];[address] | | | | | [address];[place] | | | | | [address] | | | + + + + + + + + + + | Performing | Address | City/State/Zipcode | Phone Number | | Organization | | | | + + + + + | [facility] | [address] | [place] [address] | | + + + + + POCT glucose (02/25/2018 11:27 AM) + + + + + | Component | Value | Ref Range | Performed At | + + + + + | GLUCOSE,POC SCREEN | 203 (H)Comment: Testing | 65 - 99 mg/dL | [facility] | | | performed at [facility];[address] | | | | | [address];[place] | | | | | [address] | | | + + + + + + + + + + | Performing | Address | City/State/Zipcode | Phone Number | | Organization | | | | + + + + + | [facility] | [address] | [place] [address] | | + + + + + Vancomycin, trough (02/25/2018 8:35 AM) + + + + + | Component | Value | Ref Range | Performed At | + + + + + | VANCOMYCIN,TROUGH | 18.6Comment: 15 to 20 | 10 - 20 ug/mL | [facility] | | | ug/mL for meningitis, | | | | | osteomyelitis, | | | | | endocarditis, sepsis, or | | | | | healthcare associated | | | | | pneumonia, or an MODESTA | | | | | equal to or greater than | | | | | 1.0 ug/mLTesting | | | | | performed at [facility] | | | | | [address];[place], [place] | | | | | [address] | | | + + + + + + + + + + | Performing | Address | City/State/Zipcode | Phone Number | | Organization | | | | + + + + + | [facility] | [address] | [place] [address] | | + + + + + CBC w/auto diff (reflex to manual) (02/25/2018 8:35 AM) + + + + + | Component | Value | Ref Range | Performed At | + + + + + | WBC | 12.16 (H) | 3.80 - 11.00 K/uL | [facility] | + + + + + | RBC | 3.78 (L) | 4.20 - 5.70 M/uL | [facility] | + + + + + [...] 34.4 | 32.0 - 35.5 g/dL | [facility] | + + + + + | RDW SD | 40.7 | 37 - 53 fl | [facility] | + + + + + | PLT | 274 | 150 - 400 K/uL | [facility] | + + + + + | MPV | 7.2 | fl | [facility] | + + + + + | DIFF TYPE | AUTOMATED | | [facility] | + + + + + [...] | RBC AND PLT MORPHOLOGY | | [facility] | | | APPEAR NORMAL | | | + + + + + | Diff Comment | SLIDE SCANNED, AGREES | | [facility] | | | WITH AUTOMATED | | | | | RESULTS.Comment: Testing | | | | | performed at [facility] | | | | | [address];[place], [place] | | | | | [address] | | | + + + + + + + | Specimen | + + | Blood | + + + + + + + | Performing | Address | City/State/Zipcode | Phone Number | | Organization | | | | + + + + + | [facility] | [address] | [place] [address] | | + + + + + Basic metabolic panel (02/25/2018 8:35 AM) + + + + + | Component | Value | Ref Range | Performed At | + + + + + | SODIUM | 139 | 135 - 145 mmol/L | [facility] | + + + + + | POTASSIUM | 3.8 | 3.5 - 4.9 mmol/L | [facility] | + + + [...] 0.81 | 0.70 - 1.30 mg/dL | [facility] | + + + + + | BUN/CREAT | 15 | | [facility] | + + + + + | CALCIUM | 7.9 (L) | 8.5 - 10.5 mg/dL | [facility] | + + + + + | EGFR | >60Comment: GFR <60: | >60 mL/min/1.73m2 | [facility] | | | CHRONIC [...] | | | | | performed at [facility];[address] | | | | | [facility];[place], [place] | | | | | [address] | | | + + + + + + + | Specimen | + + | Blood | + + + + + + + | Performing | Address | City/State/Zipcode | Phone Number | | Organization | | | | + + + + + | [facility] | [address] | [place] [address] | | + + + + + POCT glucose (02/25/2018 5:24 AM) + + + + + | Component | Value | Ref Range | Performed At | + + + + + | GLUCOSE,POC SCREEN | 167 (H)Comment: Testing | 65 - 99 mg/dL | [facility] | | | performed at [facility];[address] | | | | | [address];[place] | | | | | [address] | | | + + + + + + + + + + | Performing | Address | City/State/Zipcode | Phone Number | | Organization | | | | + + + + + | [facility] | [address] | [place] [address] | | + + + + + POCT glucose (02/24/2018 9:01 PM) + + + + + | Component | Value | Ref Range | Performed At | + + + + + | GLUCOSE,POC SCREEN | 240 (H)Comment: Testing | 65 - 99 mg/dL | [facility] | | | performed at [facility];[address] | | | | | [address];[place] | | | | | [address] | | | + + + + + + + + + + | Performing | Address | City/State/Zipcode | Phone Number | | Organization | | | | + + + + + | [facility] | [address] | [place] [address] | | + + + + + POCT glucose (02/24/2018 4:09 PM) + + + + + | Component | Value | Ref Range | Performed At | + + + + + | GLUCOSE,POC SCREEN | 214 (H)Comment: Testing | 65 - 99 mg/dL | [facility] | | | performed at [facility];[address] | | | | | [address];[place], [place] | | | | | [address] | | | + + + + + + + + + + | Performing | Address | City/State/Zipcode | Phone Number | | Organization | | | | + + + + + | [facility] | [address] | [place] [address] | | + + + + + [...] | + + + + + | [facility] | [address] [facility] | [place] [address] | | + + + + + POCT glucose (02/24/2018 11:20 AM) + + + + + | Component | Value | Ref Range | Performed At | + + + + + | GLUCOSE,POC SCREEN | 153 (H)Comment: Testing | 65 - 99 mg/dL | [facility] | | | performed at [facility];[address] | | | | | [address];[place] | | | | | [address] | | | + + + + + + + + + + | Performing | Address | City/State/Zipcode | Phone Number | | Organization | | | | + + + + + | [facility] | [address] | [place] [address] | | + + + + + POCT glucose (02/24/2018 5:43 AM) + + + + + | Component | Value | Ref Range | Performed At | + + + + + | GLUCOSE,POC SCREEN | 119 (H)Comment: Testing | 65 - 99 mg/dL | [facility] | | | performed at [facility];[address] | | | | | [address];[place] | | | | | [address] | | | + + + + + + + + + + | Performing | Address | City/State/Zipcode | Phone Number | | Organization | | | | + + + + + | [facility] | [address] | [facility] [place] [address] | | + + + + + [...] | | | | | performed at [facility], [address] | | | | | [facility], | | | | | [place] [address] | | | + + + + + + + | Specimen | + + | Blood | + + + + + + + | Performing | Address | City/State/Zipcode | Phone Number | | Organization | | | | + + + + + | [facility] | [address] | [place] [address] | [phone] | | LABORATORY | [place] | | | + + + + + POCT glucose (02/24/2018 12:28 AM) + + + + + | Component | Value | Ref Range | Performed At | + + + + + | GLUCOSE,POC SCREEN | 100 (H)Comment: Testing | 65 - 99 mg/dL | [facility] | | | performed at [facility];[address] | | | | | [address];[place], [place] | | | | | [address] | | | + + + + + + + + + + | Performing | Address | City/State/Zipcode | Phone Number | | Organization | | | | + + + + + | [facility] | [address] | [place] [address] | | + + + + + POC arterial CG8+ (02/23/2018 8:55 PM) + + + + + | Component | Value | Ref Range | Performed At | + + + + + | pH, Art | 7.362 | 7.350 - 7.450 | [facility] | + + + [...] (H) | 65 - 99 mg/dL | [facility] | + + + + + | POC HCT | 34 (L) | 40.0 - 50.0 % | [facility] | + + + + + | POC HGB | 11.6 (L)Comment: Testing | 13.7 - 16.7 g/dL | [facility] | | | performed at [facility];[address] | | | | | [place] | | | | | [address] | | | + + + + + + + + + + | Performing | Address | City/State/Zipcode | Phone Number | | Organization | | | | + + + + + | [facility] | [address] | [place] [address] | | + + + + + POCT glucose (02/23/2018 6:46 PM) + + + + + | Component | Value | Ref Range | Performed At | + + + + + | GLUCOSE,POC SCREEN | 109 (H)Comment: Testing | 65 - 99 mg/dL | [facility] | | | performed at [facility];[address] | | | | | [address];[place] | | | | | [address] | | | + + + + + + + + + + | Performing | Address | City/State/Zipcode | Phone Number | | Organization | | | | + + + + + | [facility] | [address] | [place] [address] | | + + + + + POCT glucose (02/23/2018 4:22 PM) + + + + + | Component | Value | Ref Range | Performed At | + + + + + | GLUCOSE,POC SCREEN | 128 (H)Comment: Testing | 65 - 99 mg/dL | [facility] | | | performed at [facility];[address] | | | | | [address];[place], [place] | | | | | [address] | | | + + + + + + + + + + | Performing | Address | City/State/Zipcode | Phone Number | | Organization | | | | + + + + + | [facility] | [address] | [place] [address] | | + + + + + [...] [place] | | | | | [address] | | | + + + + + + + | Specimen | + + | Blood | + + + + + + + | Performing | Address | City/State/Zipcode | Phone Number | | Organization | | | | + + + + + | [facility] | [address] | [place] [address] | [phone] | | LABORATORY | [address] | | [...] | ANTIBODY SCREEN | NEGATIVE | | [facility] | + + + + + | ARM BAND NUMBER | [id number] | | [facility] | | | performed at [facility];[address] | | | | | [address];[place], [place] | | | | | [address] | | | + + + + + + + | Specimen | + + | Blood | + + + + + + + | Performing | Address | City/State/Zipcode | Phone Number | | Organization | | | | + + + + + | [facility] | [address] | [place] [address] | | + + + + + POCT glucose (02/23/2018 12:17 PM) + + + + + | Component | Value | Ref Range | Performed At | + + + + + | GLUCOSE,POC SCREEN | 138 (H)Comment: Testing | 65 - 99 mg/dL | [facility] | | | performed at [facility];[address] | | | | | [address];[place], [place] | | | | | [address] | | | + + + + + + + + + + | Performing | Address | City/State/Zipcode | Phone Number | | Organization | | | | + + + + + | [facility] | [address] | [place] [address] | | + + + + + Vancomycin, trough (02/23/2018 8:21 AM) + + + + + | Component | Value | Ref Range | Performed At | + + + + + | VANCOMYCIN,TROUGH | 16.6Comment: 15 to 20 | 10 - 20 ug/mL | [facility] | | | ug/mL for meningitis, | | | | | osteomyelitis, | | | | | endocarditis, sepsis, or | | | | | healthcare associated | | | | | pneumonia, or an MODESTA | | | | | equal to or greater than | | | | | 1.0 ug/mLTesting | | | | | performed at [facility];[address] | | | | | [address];[place] | | | | | [address] | | | + + + + + + + | Specimen | + + | Blood | + + + + + + + | Performing | Address | City/State/Zipcode | Phone Number | | Organization | | | | + + + + + | [facility] | [address] | [place] [address] | | + + + + + POCT glucose (02/23/2018 5:33 AM) + + + + + | Component | Value | Ref Range | Performed At | + + + + + | GLUCOSE,POC SCREEN | 163 (H)Comment: Testing | 65 - 99 mg/dL | [facility] | | | performed at [facility];[address] | | | | | [address];[place] | | | | | [address] | | | + + + + + + + + + + | Performing | Address | City/State/Zipcode | Phone Number | | Organization | | | | + + + + + | [facility] | [address] | [place] [address] | | + + + + + APTT (02/23/2018 12:25 AM) + + + + + | Component | Value | Ref Range | Performed At | + + + + + | APTT | 40 (H)Comment: Testing | 23 - 32 seconds | [facility] | | | performed at [facility];[address] | | | | | [address];[place] | | | | | [address] | | | + + + + + + + | Specimen | + + | Blood | + + + + + + + | Performing | Address | City/State/Zipcode | Phone Number | | Organization | | | | + + + + + | [facility] | [address] | [place] [address] | | + + + + + POCT glucose (02/22/2018 9:39 PM) + + + + + | Component | Value | Ref Range | Performed At | + + + + + | GLUCOSE,POC SCREEN | 95Comment: Testing | 65 - 99 mg/dL | [facility] | | | performed at [facility];[address] | | | | | [facility];[place], [place] | | | | | [address] | | | + + + + + + + + + + | Performing | Address | City/State/Zipcode | Phone Number | | Organization | | | | + + + + + | [facility] | [address] | [place] [address] | | + + + + + [...] [facility] | [address] | [place] [address] | | + + + + + [...] was brought to | | | the industrial laborer and placed on supine position. Moderate [...] DETAIL: The patient was brought to the industrial laborer and placed on | | supine [...] | + + + + + | [facility] | [address] | [place] [address] | | + + + + + IR david garcia (02/22/2018 8:55 PM) + + + | Narrative | Performed At | + + + | DATE OF PROCEDURE: 02/22/2018 SURGEON: Johan Mueller MD | [facility] | | PREOPERATIVE DIAGNOSIS: [...] was brought to | | | the industrial laborer and placed on supine position. Moderate [...] DETAIL: The patient was brought to the industrial laborer and placed on | | supine [...] | + + + + + | [facility] | [address] | [place] [address] | | + + + + + IR aortagram abdominal (02/22/2018 8:55 PM) + + + | Narrative | Performed At | + + + | DATE OF PROCEDURE: 02/22/2018 SURGEON: Johan Mueller MD | [facility] | | PREOPERATIVE DIAGNOSIS: [...] was brought to | | | the industrial laborer and placed on supine position. Moderate [...] DETAIL: The patient was brought to the industrial laborer and placed on | | supine [...] | + + + + + | [facility] | [address] | [place] [address] | | + + + + + IR angiogram extremity right (02/22/2018 8:55 PM) + + + | Narrative | Performed At | + + + | DATE OF PROCEDURE: 02/22/2018 SURGEON: Johan Mueller MD | [facility] | | PREOPERATIVE DIAGNOSIS: [...] was brought to | | | the industrial laborer and placed on supine position. Moderate [...] DETAIL: The patient was brought to the industrial laborer and placed on | | supine [...] | + + + + + | [facility] | [address] [facility] | [place] [address] | | + + + + + POC ACT, arterial (02/22/2018 8:00 PM) + + + + + | Component | Value | Ref Range | Performed At | + + + + + | POC ACT | 241 (H)Comment: Testing | 74 - 137 seconds | [facility] | | | performed at [facility];[address] | | | | | [address];[place] | | | | | [address] | | | + + + + + + + + + + | Performing | Address | City/State/Zipcode | Phone Number | | Organization | | | | + + + + + | [facility] | [address] | [place] [address] | | + + + + + POCT glucose (02/22/2018 5:00 PM) + + + + + | Component | Value | Ref Range | Performed At | + + + + + | GLUCOSE,POC SCREEN | 105 (H)Comment: Testing | 65 - 99 mg/dL | [facility] | | | performed at [facility];[address] | | | | | [address];[place], [place] | | | | | [address] | | | + + + + + + + + + + | Performing | Address | City/State/Zipcode | Phone Number | | Organization | | | | + + + + + | [facility] | [address] | [place] [address] | | + + + + + POCT glucose (02/22/2018 3:16 PM) + + + + + | Component | Value | Ref Range | Performed At | + + + + + | GLUCOSE,POC SCREEN | 110 (H)Comment: Testing | 65 - 99 mg/dL | [facility] | | | performed at [facility];[address] | | | | | [address];[place] | | | | | [address] | | | + + + + + + + + + + | Performing | Address | City/State/Zipcode | Phone Number | | Organization | | | | + + + + + | [facility] | [address] | [place] [address] | | + + + + + POCT glucose (02/22/2018 1:14 PM) + + + + + | Component | Value | Ref Range | Performed At | + + + + + | GLUCOSE,POC SCREEN | 76Comment: Testing | 65 - 99 mg/dL | [facility] | | | performed at [facility];[address] | | | | | [address];[place] | | | | | [address] | | | + + + + + + + + + + | Performing | Address | City/State/Zipcode | Phone Number | | Organization | | | | + + + + + | [facility] | [address] | [place] [address] | | + + + + + US greater saphenous vein map bilat (02/22/2018 1:12 PM) + + + | Impressions | Performed At | + + + | 1. Bilateral greater saphenous vein mapping as described above. | [facility] | | | [facility] | + + + + + + | Narrative | Performed At | + + + | [facility]ALK[facility] [address] GREATER SAPHENOUS VEIN MAPPING | [...] - 02/22/2018 1:20 PM PDT [facility]ATER | | SAPHENOUS VEIN MAPPING BILATERAL02/22/2018 [...] [facility] | [address] | [place] [address] | | + + + + + POCT glucose (02/22/2018 11:40 AM) + + + + + | Component | Value | Ref Range | Performed At | + + + + + | GLUCOSE,POC SCREEN | 73Comment: Testing | 65 - 99 mg/dL | [facility] | | | performed at [facility];[address] | | | | | [address];[place] | | | | | [address] | | | + + + + + + + + + + | Performing | Address | City/State/Zipcode | Phone Number | | Organization | | | | + + + + + | [facility] | [address] | [place] [address] | | + + + + + aPTT - Q6 starting in 6 hours x 2 (02/22/2018 11:20 AM) + + + + + | Component | Value | Ref Range | Performed At | + + + + + | APTT | 65 (H)Comment: Testing | 23 - 32 seconds | [facility] | | | performed at [facility];[address] | | | | | [address];[place] | | | | | [id number] | | | + + + + + + + | Specimen | + + | Blood | + + + + + + + | Performing | Address | City/State/Zipcode | Phone Number | | Organization | | | | + + + + + | [facility] | [address] | [place] [address] | | + + + + + [...] + + | Claudio Soni Results In 02/22/2018 8:03 AM PDT HISTORY: [...] | + + + + + | [facility] | [address] | [place] [address] | | + + + + + [place] lower extremty arterial right (02/22/2018 7:55 AM) + + + | Impressions | Performed At | + + + | 1. The proximal NOTCHING MACHINE OPERATOR appears occluded with distal reconstitution | [facility] [...] systolic velocities (cm/s) / Doppler Waveform: Right: FLEXIBLE NANNY | | | Prox: 124.8 and triphasic DFA Prox: 69.5 and triphasic SFA Prox: | | | 107.7 and triphasic SFA Mid:90.9 and triphasic SFA Distal: 78 and | | | triphasic POP Mid: 65.6 and triphasic Tibioperoneal trunk: 45 and | | | biphasic JOSE ANGEL Prox: 171.1 and triphasic JOSE ANGEL Distal: 107 and | | | monophasic NOTCHING MACHINE OPERATOR Prox: 0 and absent NOTCHING MACHINE OPERATOR Distal: 28.3 and monophasic | | | OSMAR Prox: 31 and biphasic Peroneal mid: Appears occluded. OSMAR | | | Distal: 88 and monophasic Dorsalis pedis artery: 48 and monophasic | | | Atherosclerosis in arteries of right lower extremity vascular | | | calcifications. The proximal NOTCHING MACHINE OPERATOR appears occluded with distal | | | [...] systolic velocities | | (cm/s) / Doppler Waveform:Right:FLEXIBLE NANNY Prox: 124.8 and triphasicDFA Prox: 69.5 and [...] | | lower extremity vascular calcifications.The proximal NOTCHING MACHINE OPERATOR appears occluded with distal | | reconstitution via collaterals.Mid peroneal artery appears occluded with distal | | reconstitution via collaterals.Probable hemodynamically significant stenosis in proximal | | JOSE ANGEL.IMPRESSION:1. The proximal NOTCHING MACHINE OPERATOR appears occluded with distal reconstitution via | [...] |JOSE ANGEL Distal: 107 and monophasic | |NOTCHING MACHINE OPERATOR Prox: 0 and absent | |NOTCHING MACHINE OPERATOR Distal: 28.3 and monophasic | |OSMAR Prox: 31 and biphasic | |Peroneal mid: Appears occluded. | |OSMAR Distal: 88 and monophasic | |Dorsalis pedis artery: 48 and monophasic | | | |Atherosclerosis in arteries of right lower extremity vascular calcifications. | | | |The proximal NOTCHING MACHINE OPERATOR appears occluded with distal reconstitution via collaterals. | |Mid peroneal artery appears occluded with distal reconstitution via collaterals. | |Probable hemodynamically significant stenosis in proximal JOSE ANGEL. | | | |IMPRESSION: | |1. The proximal NOTCHING MACHINE OPERATOR appears occluded with distal reconstitution via collaterals. [...] | + + + + + | [facility] | [address] | [place] [address] | | + + + + + [...] [place] | | | | | [address] | | | + + + + + + + + + + | Performing | Address | City/State/Zipcode | Phone Number | | Organization | | | | + + + + + | [facility] | [address] [facility] | [place] [address] | [phone] | | LABORATORY | Blvd. | | [...] + + + | [facility] | [address] | [place] [address] | [phone] | | LABORATORY | Blvd. | | [...] + + + + + | Specific [place], UA | 1.012 | 1.002 - 1.030 [...] | [facility] | | | performed at [facility], [address] | | LABORATORY | | | [address], | | | | | [place] [address] | | | + + + + + + + | Specimen | + + | Urine - Urine, Clean | | Catch | + + + + + + + | Performing | Address | City/State/Zipcode | Phone Number | | Organization | | | | + + + + + | [facility] | [address] | [place] [address] | [phone] | | LABORATORY | [address] | | | + + + + + POCT glucose (02/22/2018 4:06 AM) + + + + + | Component | Value | Ref Range | Performed At | + + + + + | GLUCOSE,POC SCREEN | 93Comment: Testing | 65 - 99 mg/dL | [facility] | | | performed at [facility];[address] | | | | | [address];[place], [place] | | | | | [address] | | | + + + + + + + + + + | Performing | Address | City/State/Zipcode | Phone Number | | Organization | | | | + + + + + | [facility] | [address] | [place] [address] | | + + + + + MRSA by PCR (02/22/2018 4:06 AM) + + + + + | Component | Value | Ref Range | Performed At | + + + + + | SOURCE | NARES(NOSE) | | [facility] | + + + + + | MRSA PCR | NEGATIVEComment: Testing | NEGATIVE | [facility] | | | performed at [facility];[address];[place], [place] | | | | | [address] | | | + + + + + + + | Specimen | + + | Nasopharyngeal - | | Santoshes(Nose) | + + + + + + + | Performing | Address | City/State/Zipcode | Phone Number | | Organization | | | | + + + + + | [facility] | [address] | [place] [address] | | + + + + + remberto Fink (02/22/2018 3:30 AM) + + + + + | Component | Value | Ref Range | Performed At | + + + + + | REMBERTO FINK | 0.4 (H)Comment: Testing | 0.0 - 0.3 mg/dL | [facility] | | | performed at [facility], [address] | | LABORATORY | | | [address], | | | | | [place] [address] | | | + + + + + + + + + + | Performing | Address | City/State/Zipcode | Phone Number | | Organization | | | | + + + + + | [facility] | [address] [place] [address] | [place] [address] | [phone] | | LABORATORY | [place]. | | | + + + + + Protime-INR (02/22/2018 3:30 AM) + + + + + | Component | Value | Ref Range | Performed At | + + + + + | INR | 1.1Comment: REFERENCE | | [facility] | | | RANGE:0.9 [...] | | | | | performed at [facility];[address] | | | | | [address] [facility];[place] | | | | | [address] | | | + + + + + + + + + + | Performing | Address | City/State/Zipcode | Phone Number | | Organization | | | | + + + + + | [facility] | [address] | [place] [address] | | + + + + + Septic Lactic Acid (02/22/2018 3:30 AM) + + + + + | Component | Value | Ref Range | Performed At | + + + + + | LACTIC ACID | 1.2Comment: Testing | 0.4 - 2.0 mmol/L | [facility] | | | performed at [facility];[address] | | | | | [address];[place] | | | | | [address] | | | + + + + + + + + + + | Performing | Address | City/State/Zipcode | Phone Number | | Organization | | | | + + + + + | [facility] | [address] | [place] [address] | | + + + + + aPTT - Q6 starting in 6 hours x 2 (02/22/2018 3:30 AM) + + + + + | Component | Value | Ref Range | Performed At | + + + + + | APTT | 132 ()Comment: PTT | 23 - 32 seconds | [facility] | | | PHONED TO DANNIE SOOD | | | | | AT 0415 BY PercSysREAD BACK | | | | | RESULTS VERIFIEDTesting | | | | | performed at [facility];[address];[place] | | | | | [address] | | | + + + + + + + | Specimen | + + | Blood | + + + + + + + | Performing | Address | City/State/Zipcode | Phone Number | | Organization | | | | + + + + + | [facility] | [address] | [place] [address] | | + + + + + Glycohemoglobin A1C (02/22/2018 3:30 AM) + + + + + | Component | Value | Ref Range | Performed At | + + + + + | HEMOGLOBIN A1C | 7.9 (H)Comment: The | 4.0 - 6.0 % | [facility] | | | [facility] | | LABORATORY | | | [...] | | | | | performed at [facility], [address] | | | | | [facility], | | | | | [place] [address] | | | + + + + + + + | Specimen | + + | Blood | + + + + + + + | Performing | Address | City/State/Zipcode | Phone Number | | Organization | | | | + + + + + | [facility] | [address] [facility] | [place] [address] | [phone] | | LABORATORY | Blvd. | | [...] 83 | 35 - 115 U/L | [facility] | | | | | LABORATORY | + + + + + | AST | 21 | 10 - 45 U/L | [facility] | | | | | LABORATORY | + + + + + | ALT | 25 | 10 - 65 U/L | [facility] | | | | | LABORATORY | + + + + + | EGFR | >60Comment: GFR <60: | >60 mL/min/1.73m2 | [facility] | | | CHRONIC KIDNEY DISEASE, [...] at | | | | | TC, [address] [place] [address] | | | | | [place], | | | | | [place] [address] | | | + + + + + + + | Specimen | + + | Blood | + + + + + + + | Performing | Address | City/State/Zipcode | Phone Number | | Organization | | | | + + + + + | [facility] | [address] [facility] | [place] [address] | [phone] | | LABORATORY | [place]. | | | + + + + + Magnesium (02/22/2018 3:30 AM) + + + + + | Component | Value | Ref Range | Performed At | + + + + + | MAGNESIUM | 1.9Comment: Testing | 1.7 - 2.4 mg/dL | [facility] | | | performed at [facility], [address] | | LABORATORY | | | [address] [facility], | | | | | [place] [address] | | | + + + + + + + | Specimen | + + | Blood | + + + + + + + | Performing | Address | City/State/Zipcode | Phone Number | | Organization | | | | + + + + + | [facility] | [address] [facility] | [place] [address] | [phone] | | LABORATORY | Blvd. | | [...] Testing | 0.00 - 0.10 K/uL | [facility] | | | performed at [facility], [address] | | LABORATORY | | | [facility], | | | | | [place] [address] | | | + + + + + + + | Specimen | + + | Blood | + + + + + + + | Performing | Address | City/State/Zipcode | Phone Number | | Organization | | | | + + + + + | [facility] | [address] [place] [address] | [place] [address] | [phone] | | LABORATORY | Blvd. | | [...] + + + | [facility] | [address] [facility] | [place] [address] | [phone] | | LABORATORY | [place] | | | + + + + + | [facility] | [address] | [place] [address] | | + + + + + Cardiac Panel (02/21/2018 9:00 PM) + + + + + | Component | Value | Ref Range | Performed At | + + + + + | WBC | 16.21 (H) | 3.80 - 11.00 K/uL | [facility] | + + + + + | RBC | 4.73 | 4.20 - 5.70 M/uL | [facility] | + + + + + | HGB | 14.6 | 13.2 - 17.0 g/dL | [facility] | + + + + + | HCT | 41.4 | 39.0 - 50.0 % | [facility] | + + + + + | MCV | 87.6 | 80.0 - 100.0 fl | [facility] | + + + + + | MCH | 30.9 | 27.0 - 34.0 pg | [facility] | + + + + + | MCHC | 35.3 | 32.0 - 35.5 g/dL | [facility] | + + + + + | RDW SD | 39.8 | 37 - 53 fl | [facility] | + + + + + | PLT | 261 | 150 - 400 K/uL | [facility] | + + + + + [...] (H) | 0.00 - 0.80 K/uL | [facility] | + + + + + | EOSINOPHILS ABS | 0.00 | 0.00 - 0.50 K/uL | [facility] | + + + + + | BASOPHILS ABS | 0.03 | 0.00 - 0.10 K/uL | [facility] | + + + + + | MORPHOLOGY | RBC AND PLT MORPHOLOGY | | [facility] | | | APPEAR NORMAL | | | + + + + + | Platelet Estimate | ADEQUATE | | [facility] | + + + + + | Diff Comment | SLIDE SCANNED, AGREES | | [facility] | | | WITH AUTOMATED RESULTS. | | | + + + + + | SODIUM | 134 (L) | 135 - 145 mmol/L | [facility] | + + + + + | POTASSIUM | 4.1 | 3.5 - 4.9 mmol/L | [facility] | + + + + + | CHLORIDE | 97 (L) | 99 - 109 mmol/L | [facility] | + + + + + [...] 9.1 | 8.5 - 10.5 mg/dL | [facility] | + + + + + | TOTAL PROTEIN | 7.9 | 6.3 - 8.2 g/dL | [facility] | + + + + + | Albumin | 2.8 (L) | 3.6 - 5.0 g/dL | [facility] | + + + + + | GLOBULIN | 5.1 (H) | 1.3 - 4.9 g/dL | [facility] | + + + [...] >60Comment: GFR <60: | >60 mL/min/1.73m2 | [facility] | | | CHRONIC [...] | | | MDRD [facility] traceable | | | | | equation. PLEASE NOTE | | | | | NEW CALCULATION | | | | | EFFECTIVE 01/25/2018 | | | + + + + + | CPK | 32 (L) | 55 - 400 U/L | [facility] | + + + + + | INR | 1.1Comment: REFERENCE | | [facility] | | | RANGE:0.9 [...] (H) | 23 - 32 seconds | [facility] | + + + + + | MMB | <1.0 | 0.5 - 3.6 ng/mL | [facility] | + + + + + | CK-MB Index | UNABLE TO | | [facility] | | | CALCULATEComment: | | | | | Testing performed at | | | | | [facility];[address] [place] [address] | | | | | Blvd;[place] [address] | | | + + + + + + + + + + | Performing | Address | City/State/Zipcode | Phone Number | | Organization | | | | + + + + + | [facility] | [address] | [place] [address] | | + + + + + [...] + + + | [facility] | [address] [facility] | [place] [address] | [phone] | | LABORATORY | Blvd. | | | + + + + + | [facility] | [address] | [place] [address] | | + + + + + Septic Lactic Acid (02/21/2018 9:00 PM) + + + + + | Component | Value | Ref Range | Performed At | + + + + + | LACTIC ACID | 1.9Comment: Testing | 0.4 - 2.0 mmol/L | [facility] | | | performed at [facility];[address] | | | [address];[place] | | | | | [address] | | | + + + + + + + + + + | Performing | Address | City/State/Zipcode | Phone Number | | Organization | | | | + + + + + | [facility] | [address] | [place] [address] | | + + + + + Critical Care (02/21/2018 8:25 PM) + + + | Narrative | Performed At | + + + | Rosalva Yaets MD 02/21/2018 10:58 PM Critical Care | [...] | | | | | Starting [facility] 02/24/18 at 0031 | | | [...]
--- OUTSIDE RECORDS SUMMARY | ~2018-04-10 | XMS | Encounter Summary ---
Demographics + + + | Address | [address] | | | [place] [address] | + + + | Home Phone [...] + + + | Author | [facility] | + + + | Organization | [facility] | + + + | Address | Unknown | + + + | Phone | Unavailable | + + + Support + + +---------+ + | Name | Relationship | Address | Phone | + + +---------+ + | Megan Walker | ECON | Unknown | | + + +---------+ + Care Team Providers + +------+ + | Care Manager Program Management Name | Role | Phone | + +------+ + | Nicholas Claire MD | PCP | | + +------+ + Encounter Details +--------+ + + + + | Date | Type | Department | Care Team | Description | +--------+ + + + + | 03/11/ | Procedure | [facility] | | | | 2018 | [facility] | [address] | | | | | | Floor [place] | | | | | | [address] | | | | | | [place] [address] | | | | | | [phone] | | | +--------+ + + + [...]
--- OUTSIDE RECORDS SUMMARY | ~2018-04-10 | XMS | Encounter Summary ---
Demographics + + + | Address | [address] | | | [place] [address] | + + + | Home Phone | | + + + | Preferred Language | Unknown | + + + | Marital Status | Single | + + + | Mosque Affiliation | Unknown | + + + | Race | Unknown | + + + | Ethnic Group | Unknown | + + + Author + + + | Author | [facility] | + + + | Organization | [facility] | + + + | Address | Unknown | + + + | Phone | Unavailable | + + + Support + + +---------+ + | Name | Relationship | Address | Phone | + + +---------+ + | Megan Walker | ECON | Unknown | | + + +---------+ + Care Team Providers + +------+ + | Care Strategic Client Executive Name | Role | Phone | + [...] + + | 03/16/ | Clinical | [facility] | Yesenia Witt, | PAD (peripheral | | 2018 | Support | Vascular Surgery | RN | artery disease) | | | | [address] | | ([facility]) (Primary Dx) | | | | [facility] [place] | | | | | | [address] | | | | | | [phone] | | | +--------+ + + + [...] possible georges removal. Patient is currently at [facility], he discharged from [facility] yesterday after thrombolysis of right low [...] care instructions sent back with patient to [facility] in [facility] encounter Plan of Treatment +--------+---------+ + + + | Date | Type | Specialty | Care Team | Description | +--------+---------+ + + + | 04/18/ | Office | Vascular Surgery | Chris Duggan DNP | | | 2017 | Visit | | [address] | | | | | | [place] | | | | | | [phone] | | | | | | | | +--------+---------+ + + + as of this encounter Visit Diagnoses + + | Diagnosis | + + | PAD (peripheral artery disease) (HCC) - Primary | + + | Unspecified disorders of arteries and arterioles | + +
--- OUTSIDE RECORDS SUMMARY | ~2018-04-10 | XMS | Encounter Summary ---
Demographics + + + | Address | [address] | | | [place] [address] | + + + | Home Phone | | + + + | Preferred Language | Unknown | + + + | Marital Status | Single | + + + | Druze Affiliation | Unknown | + + + | Race | Unknown | + + + | Ethnic Group | Unknown | + + + Author + + + | Author | [facility] | + + + | Organization | [facility] | + + + | Address | Unknown | + + + | Phone | Unavailable | + + + Support + + +---------+ + | Name | Relationship | Address | Phone | + + +---------+ + | Megan Walker | ECON | Unknown | | + + +---------+ + Care Team Providers + +------+ + | Care Crib Pad Maker Name | Role | Phone | + +------+ + | iNcholas Claire MD | PCP | | + +------+ + Encounter Details +--------+ + + + + | Date | Type | Department | Care Team | Description | +--------+ + + + + | 02/22/ | Procedure | [facility] | | | | 2017 | [facility] | [address] | | | | | | Floor [facility] | | | | | | [address] [facility] | | | | | | [place] [address] | | | | | | [phone] | | | +--------+ + + + [...] [place] | | | | | | [address] | | | | | | | | +--------+---------+ + + + as of this encounter Visit Diagnoses Not on filein this encounter"
[~2018-04-10 00:25] MED LIST changes: +AMARYL2 MG PO; +AMOX TR-K CLV1 EAC1 PO; +ANTI-DIARRHEA2 MG PO; +ATIVAN0.5 MG PO; +ATORVASTATIN CA40 MG PO; +CLOPIDOGREL75 MG PO; +HYDROCODON-ACE1 EAC8 PO; +JANUMET XR 50-1 EACH PO; +LAXATIVE SUPPOS10 MG PR; +MILK OF MA400 MG/5 M PO; +MULTI VITAMIN1 EACH PO; +NICOTINE PATCH1 EAC1 TD; +PAIN RELIEF650 MG PO; +PEG3350510 GM PO
[2018-04-10] MEDS ORDERED: ZOFRAN ODT4 MG PO (03:13)
== END 2018-04-10 03:35 | disposition home or self-care (01) ==
LOC: ED 00:25
PROC: 0T9B70Z Drainage of Bladder with Drainage Device, Via Natural or Artificial Opening (ICD-10-PCS; principal; 2018-04-10)
PROC: BT40ZZZ Ultrasonography of Bladder (ICD-10-PCS; principal; 2018-04-10)
DX: K52.9 Noninfective gastroenteritis and colitis, unspecified (principal); E11.9 Type 2 diabetes mellitus without complications; I10 Essential (primary) hypertension; E78.00 Pure hypercholesterolemia, unspecified; Z79.82 Long term (current) use of aspirin; Z79.899 Other long term (current) drug therapy
CPT/HCPCS: 51701; 51798; 74177; 80053; 81001; 83690; 85025; 96374; 99284; J2405; Q9967